=== PATIENT | male | born 1970 | race Caucasian/White ===

== ENCOUNTER → 2017-09-29 10:05 | Outpatient (CLI) | payer MEDICARE, MEDICAID, SELFPAY ==
--- NOTE | 2017-09-29 10:00 | NS.NUTBLAN_ITS ---
Darvin returns for follow up nutritional counseling for weight management in preparation for bariatric surgery. He demonstrates that he has followed through with the action plans he set out to do at our last session. He has discontinued drinking sugar sweetened beverages and he has been physically active on most days as much as he can, also taking into consideration the extreme heat. Acknowledged his excellent efforts and commitment to making weight management his way of life. We discussed building on the action plans towards his lifestyle changes and gave Darvin several ideas of things he could work on over the next month. Darvin verbalized that the next most important lifestyle change he can make will be to do all of his eating at the kitchen table, versus on the run or in bed. He will of course continue to drink only water and non SSB's as well as swim or do other activities that he can tolerate as much as possible. Darvin is 67 and is 429 lbs today. His BMI is 65.2 kg/m2. Will continue to monitor weight and PO intake monthly. Darvni will return next month for follow up Evaluate progress on action plans and adjust nutrition care plan as needed.
== END ==
PROVIDERS: PCP Physician Assistant Medical; Visit Provider Dietitian, Registered
DX: E66.01 Morbid (severe) obesity due to excess calories (principal); Z68.44 Body mass index [BMI] 60.0-69.9, adult; Z71.3 Dietary counseling and surveillance
CPT/HCPCS: 97803

== ENCOUNTER → 2017-10-09 19:36 | Outpatient (REF) | payer MEDICARE, MEDICAID, SELFPAY ==
[2017-10-12 11:43] LABS: Lyme Ab w Rflx to Lyme Confirm Negative
[2017-10-12 22:35] LABS: Anaplasma phagocytophilum Negative (Negative); B. miyamotoi PCR Negative (Negative); Babesia divergens/MO-1 Negative (Negative); Babesia duncani Negative (Negative); Babesia microti Negative (Negative); Ehrlichia chaffeensis Negative (Negative); Ehrlichia ewingii/canis Negative (Negative); Ehrlichia muris eauclairensis Negative (Negative)
== END ==
LOC: NCHCN 19:36
PROVIDERS: PCP Physician Assistant Medical; Visit Provider Physician Assistant Medical
DX: M79.1 Myalgia (principal)
CPT/HCPCS: 86618; 87798

== ENCOUNTER 2017-11-13 16:00 | Outpatient (CLI) | payer SELFPAY ==
--- NOTE | 2017-11-13 16:00 | NS.NUTBLAN_ITS ---
Darvin returns for follow up nutritional counseling for weight management in preparation for bariatric surgery. He continues to demonstrate that he is motivated to make lifestyle changes necessary for a life long commitment to weight management. He continues to eliminate sugar sweetened beverages and he continues to eat more of his meals at the kitchen table. We discussed continuing to include physical activity daily as the weather gets cooler as Darvin was swimming outside daily while it was warm. Darvin reports that he plans to walk. He is 67 and 429 lbs. His BMI is 65.2 kg/m2. Follow up per [facility]. Appointment start time: 1620h Appointment end time: 1635h
== END 2017-11-13 16:20 ==
PROVIDERS: PCP Physician Assistant Medical; Visit Provider Dietitian, Registered
DX: E66.8 Other obesity (principal); Z68.44 Body mass index [BMI] 60.0-69.9, adult; Z71.3 Dietary counseling and surveillance
CPT/HCPCS: 97803

== ENCOUNTER 2018-01-21 10:30 | Outpatient (CLI) | payer MEDICARE, MEDICAID, SELFPAY | END 2018-01-21 10:50 | PROVIDERS: PCP Physician Assistant Medical; Visit Provider Physical Therapy Assistant | DX: K21.9 Gastro-esophageal reflux disease without esophagitis (principal); I10 Essential (primary) hypertension; J44.9 Chronic obstructive pulmonary disease, unspecified; F17.290 Nicotine dependence, other tobacco product, uncomplicated | CPT/HCPCS: 99213 ==

== ENCOUNTER 2018-03-16 01:20 | Outpatient (CLI) | payer MEDICARE, MEDICAID, SELFPAY ==
--- NOTE | 2018-03-16 14:48 | DI.NM_ITS ---
2 day MPI. See dictation under day 2 (03/17/18).
== END 2018-03-16 01:40 ==
PROVIDERS: PCP Physician Assistant Medical; Visit Provider Physician Assistant Medical
DX: R07.89 Other chest pain (principal); R06.02 Shortness of breath; I42.9 Cardiomyopathy, unspecified; I10 Essential (primary) hypertension

== ENCOUNTER 2018-03-17 01:39 | Outpatient (CLI) | payer MEDICARE, MEDICAID, SELFPAY ==
--- NOTE | 2018-03-17 08:15 | MERGEMPI_ITS ---
*[facility]* *[facility]* [address] [place] [address] Myocardial Perfusion Imaging - SPECT Regadenoson Date of study: 03/17/2018 (Report amended ) *PATIENT PRESENTATION* Height: 177.8cm (70in) Blood Pressure: Weight: 196.4kg (432lb) BSA: 3.24m^2 Referring physician: Linwood Sanchez Ordering physician: Татьяна Koehler Impressions: Abnormal study after pharmacologic stress. Summary: 1. Myocardial perfusion imaging: There is a moderate sized, moderately intense, fixed defect involving the apical inferior, mid inferolateral, apical lateral, and apical wall(s). This suggests moderate myocardial infarction in the distribution of the right coronary artery. 2. The calculated left ventricular ejection fraction after stress: 23%. LV global systolic function is severely reduced. Diffuse left ventricular regional motion abnormalities. There is akinesis involving the apical wall(s) of the left ventricle. 3. Baseline ECG: Sinus bradycardia. Recommendations: Transthoracic echocardiography should be performed in order to evaluate LV function. Indication: R07.89. History: REASON FOR VISIT: LEFT CHEST PRESSURE. PT ARRIVES TODAY WITH COMPLAINTS OF PERSISTANT CHEST PRESSURE FOR 1 WEEK HE STATES IT RADIATES ACROSS HIS CHEST AND IT IS ASSOCIATED WITH SHORTNESS OF BREATH. PMH: COPD. Risk factors: FORMER SMOKER. QUIT 6 MONTHS. SMOKED 2.5 PACKS A DAY FOR 30 YEARS. Family history of coronary artery disease. Hypertension. Diabetes mellitus. Dyslipidemia. Cholesterol: 158mg/dl. HDL: 29mg/dl. LDL: 125mg/dl. Triglycerides: 112mg/dl. ALLERGIES: NO KNOWN ALLERGIES. MEDICATIONS: ALBUTEROL SULFATE 2 PUFFS PRN. BACLOFEN 10 MG DAILY. CELECOXIB 400 MG DAILY. CITALOPRAM 40 MG DAILY. CYCLOBENZAPRINE 10 MG EVERY 8 HOURS PRN. DILTIAZEM HCL 360 MG DAILY. ERGOCALCIFEROL 50,000 UNITS WEEKLY. ESOMEPRAZOLE MAGNESIUM 40 MG DAILY. FLUOXETINE 80 MG DAILY FUROSEMIDE 60 MG DAILY PRN. GABAPENTIN 900 MG DAILY. LURASIDONE 60 MG DAILY. METOFORMIN 500 MG DAILY. METHYLPHENIDATE HCL 10 MG TID. NAPROXEN SODIUM 220 MG PRN. VICODIN 5/325 MG ONE TAB TID. Imaging Technique: Protocol: Regadenoson. Acquisition: Gated SPECT; stress. The patient was imaged in the supine position. Attenuation correction used. Isotope administration: - Stress. Tc[99m]-sestamibi. Dose: 25.8mCi. Injection time: 11:05 AM. - Dose: 33.3mCi. Injection time: 10:15 AM. Baseline ECG: SINUS BRADYCARDIA. HR 54 BPM. Sinus bradycardia. Stress protocol: +--------+--+ + + !Stage !HR!BP (mmHg) !Comments ! +--------+--+ + + !Baseline!54!130/94 (106)! ! +--------+--+ + + !1 min !79!130/94 (106)!Inject Regadenoson.! +--------+--+ + + !3 min !71!138/92 (107)! ! +--------+--+ + + !6 min !66!132/94 (107)! ! +--------+--+ + + * Stress results: The rate-pressure product for the peak heart rate and blood pressure was 69876td Hg/min. Stress ECG: STRESS TEST ENDED IN 6 MINUTES & 32 MINUTES. NO SIGNIFICANT SIDE EFFECTS FROM LEXISCAN INJECTION. NORMAL HEART RATE AND BLOOD PRESSURE RESPONSE TO LEXISCAN INJECTION. PT REPORTED 6-7 OUT OF 10 CHEST TIGHTNESS UPON ARRIVAL, REPORTS THIS CHEST DISCOMFORT HAS BEEN PERSISTANTLY PRESENT FOR A WEEK. NO CHANGE IN QUALITY OR SEVERITY OF CHEST TIGHTNESS DURING TESTING. NO ECTOPY NO SIGNIFICANT ST SEGMENT CHANGES. Myocardial perfusion: Imaging information: gated. The image quality was good. Left ventricular size is normal. There is a moderate sized, moderately intense, fixed defect involving the apical inferior, mid inferolateral, apical lateral, and apical wall(s). This suggests moderate myocardial infarction in the distribution of the right coronary artery. Ventricular Function (Wall Motion): The calculated left ventricular ejection fraction after stress: 23%. LV global systolic function is severely reduced. Diffuse left ventricular regional motion abnormalities. There is akinesis involving the apical wall(s) of the left ventricle. Study data: Linwood Sanchez MD supervised and was readily available during the procedure. This study was interpreted by [facility]. Study status: Routine. Consent: The risks, benefits, and alternatives to the procedure were explained to the patient and informed consent was obtained. Procedure: Initial setup. A baseline ECG was recorded. Surface ECG leads and manual cuff blood pressure measurements were monitored. Heart sounds: Normal. Lung sounds: Normal. Regadenoson stress test. Stress testing was performed, with regadenoson by intravenous bolus, for a total dose of 0.4mgover 10.00sec, followed by a 5ml saline flush. The infusion was terminated due to per protocol. Study completion: All catheters inserted during the procedure were removed. The patient tolerated the procedure well and was discharged from the lab. Discharge: The patient left the laboratory in stable condition. Birthdate: Patient birthdate: 1970. Sex: Gender: male. Study date: Study date: 03/17/2018. Study time: 12:30 PM. Signature Documentation: - The imaging portion of this study was interpreted by [employer] Linwood Sanchez MD. - The Stress ECG portion of this study was interpreted by Linwood Sanchez MD. Electronically signed by Linwood Sanchez 03/24/2018 16:20
[2018-03-17] MEDS: Regadenoson 0.4 MG/5 ML SYR IVP (13:05)
== END 2018-03-17 01:59 ==
PROVIDERS: PCP Physician Assistant Medical; Visit Provider Physician Assistant Medical
DX: R07.89 Other chest pain (principal); R06.02 Shortness of breath; I42.9 Cardiomyopathy, unspecified; I10 Essential (primary) hypertension
CPT/HCPCS: 78452; 93016; 93018; 93017; J2785

== ENCOUNTER 2018-03-31 01:36 | Outpatient (CLI) | payer MEDICARE, MEDICAID, SELFPAY ==
--- NOTE | 2018-03-31 09:30 | MERGE_ITS ---
*[facility]* *[facility]* [address] [place] [id number] Date of study: 03/31/2018 Transthoracic Echocardiography M-mode, complete 2D, complete spectral Doppler, and color Doppler *STUDY CONCLUSIONS* Summary: 1. Procedure narrative: Image quality was poor. Intravenous contrast (Definity) was administered. 2. Left ventricle: The cavity size was mildly dilated. Wall thickness was normal. Systolic function was mildly reduced. The estimated ejection fraction was 45-50%. Akinesis of the apicalanterior, inferior, and apical myocardium. No evidence of thrombus. 3. Right ventricle: The cavity size was dilated. Systolic function was reduced. *PATIENT PRESENTATION* Height: 175.3cm ((69in) ) S/D Pressure: 136 / 96 Weight: 196kg ((431.1lb) ) BSA: 3.21m^2 Test start time: 09:30 AM. Test stop time: 11:00 AM. PERFORMING Unknown PERFORMING [facility] ORDERING Татьяна Koehler REFERRING Татьяна Koehler [employer] RT Ernst (R)(CT), [facility] *PROCEDURE DATA* Procedure information: This study was interpreted by [facility]. Pertinent images and digital data are archived for permanent storage and are available for subsequent review. No prior study was available for comparison. Study status: Routine. Transthoracic echocardiography. M-mode, complete 2D, complete spectral Doppler, and color Doppler. A Transthoracic Echocardiogram was performed. Scanning was performed from the parasternal, apical, subcostal, and suprasternal notch acoustic windows. Images were obtained using an [id number] cardiac ultrasound machine. Image quality was poor. Intravenous contrast (Definity) was administered. Definity amount administered was a total of 4ml. One vial was used. The saline was administered by amilcar . Study completion: The patient tolerated the procedure well. There were no complications. History: PMH: Abnormal cardiovascular stress test. Chest pressure. *CARDIAC ANATOMY* Left ventricle: The cavity size was mildly dilated. Wall thickness was normal. Systolic function was mildly reduced. The estimated ejection fraction was 45-50%. No evidence of thrombus. Regional wall motion abnormalities: Akinesis of the apicalanterior, inferior, and apical myocardium. The study is not technically sufficient to allow evaluation of LV diastolic function. Aortic valve: Poorly visualized. Doppler: Transvalvular velocity was within the normal range. There was no stenosis. There was no significant regurgitation. Aorta: Aortic root: The aortic root was normal in size. Ascending aorta: The ascending aorta was mildly dilated. Mitral valve: Poorly visualized. The valve appears to be grossly normal. Doppler: Transvalvular velocity was within the normal range. There was no evidence for stenosis. There was no significant regurgitation. Valve area by pressure half-time: 4cm^2. Indexed valve area by pressure half-time: 1.2cm^2/m^2. Left atrium: The atrium was normal in size. Right ventricle: Poorly visualized. The cavity size was dilated. Systolic function was reduced. Pulmonic valve: Doppler: Transvalvular velocity was within the normal range. There was no evidence for stenosis. There was no significant regurgitation. Tricuspid valve: Poorly visualized. The valve appears to be grossly normal. Doppler: Transvalvular velocity was within the normal range. There was no evidence for stenosis. There was no significant regurgitation. Pulmonary artery: Systolic pressure could not be accurately estimated. Right atrium: The atrium was normal in size. Pericardium: There was no pericardial effusion. Systemic veins: Inferior vena cava: Not visualized. The vessel was normal in size. Baseline ECG: Sinus bradycardia. Measurements Left ventricle Value Reference LV ID, ED, PLAX (H) 6.2 cm 3.5 - 6.0 LV ID, ES, PLAX (H) 5.4 cm 2.1 - 4.0 LV PW thickness, ED, PLAX 0.9 cm LV end-diastolic volume, 1-p A2C 156 ml LV ejection fraction, 1-p A2C 38 % LV e', lateral 0.088 m/sec LV E/e', lateral 7 LV e', medial 0.085 m/sec LV E/e', medial 7 LV e', average 0.086 m/sec LV E/e', average 7 Ventricular septum Value Reference IVS thickness, ED, PLAX 1.7 cm Aorta Value Reference Ascending aorta ID, A-P, S 3.7 cm Left atrium Value Reference LA ID, A-P, ES 4.5 cm LA ID/bsa, A-P 1.4 cm/m^2 <=2.2 LA area, ES, A4C 19.7 cm^2 8.8 - 23.4 LA area, ES, A2C 16 cm^2 LA volume, ES, 2-p 49 ml LA volume/bsa, ES, 2-p 15 ml/m^2 Mitral valve Value Reference Mitral E-wave peak velocity 0.63 m/sec Mitral A-wave peak velocity 0.45 m/sec Mitral deceleration time 190 ms 150 - 230 Mitral pressure half-time 55 ms Mitral E/A ratio, peak 1.41 Mitral valve area, PHT, DP 4 cm^2 Legend: (L) and (H) zuri values outside specified reference range. I have personally reviewed the images and have reviewed and edited the reported findings. Electronically signed by Linwood Sanchez 03/31/2018 12:14
== END 2018-03-31 01:56 ==
PROVIDERS: PCP Physician Assistant Medical; Visit Provider Physician Assistant Medical
DX: R07.89 Other chest pain (principal); R94.30 Abnormal result of cardiovascular function study, unspecified; I50.810 Right heart failure, unspecified; I42.9 Cardiomyopathy, unspecified; I10 Essential (primary) hypertension
CPT/HCPCS: 93306; C8929

== ENCOUNTER 2018-04-05 21:32 | Outpatient (REF) | payer MEDICARE, MEDICAID, SELFPAY ==
[2018-04-05 22:10] LABS: Anion Gap 7.3 mmol/L (3-11); BUN 15 mg/dL (7-18); CO2 32.7 mmol/L (21.0-32.0); CREATININE 0.87 mg/dL (0.70-1.30); Calcium 9.2 mg/dL (8.5-10.1); Chloride 101 mmol/L (98-107); Glucose 44 mg/dL (70-100); NT-proBNP 30 pg/mL; Potassium 4.2 mmol/L (3.5-5.1); Sodium 141 mmol/L (136-145)
== END 2018-04-05 21:52 ==
LOC: NCHCN 21:32
PROVIDERS: PCP Physician Assistant Medical; Visit Provider Physician Assistant Medical
DX: I42.9 Cardiomyopathy, unspecified (principal); R60.0 Localized edema
CPT/HCPCS: 80048; 83880

== ENCOUNTER 2018-04-06 14:46 | Outpatient (CLI) | payer MEDICARE, MEDICAID, SELFPAY | END 2018-04-06 15:06 | PROVIDERS: PCP Physician Assistant Medical; Visit Provider Physician Assistant Medical | DX: R32 Unspecified urinary incontinence (principal) | CPT/HCPCS: 87086 ==

== ENCOUNTER 2018-08-23 21:18 | Outpatient (REF) | payer MEDICARE, MEDICAID, SELFPAY ==
[2018-08-23 22:10] LABS: ALT 91 U/L (12-78); AST 50 U/L (15-37); Albumin 3.7 g/dL (3.4-5.0); Alkaline Phosphatase 106 U/L (46-116); Anion Gap 13.2 mmol/L (3-11); BUN 14 mg/dL (7-18); Bilirubin, Total 0.7 mg/dL (0.2-1.0); CO2 27.8 mmol/L (21.0-32.0); CREATININE 0.92 mg/dL (0.70-1.30); Calcium 8.8 mg/dL (8.5-10.1); Calculated LDL 85 mg/dL; Chloride 99 mmol/L (98-107); Cholesterol 133 mg/dL (50-200); Glucose 81 mg/dL (70-100); HDL Cholesterol 33 mg/dL (40-60); Potassium 3.5 mmol/L (3.5-5.1); Sodium 140 mmol/L (136-145); Total Protein 7.4 g/dL (6.4-8.2); Triglyceride 77 mg/dL (30-150)
== END 2018-08-23 21:38 ==
LOC: NCHCN 21:18
PROVIDERS: PCP Physician Assistant Medical; Visit Provider Physician Assistant Medical
DX: I10 Essential (primary) hypertension (principal); R94.39 Abnormal result of other cardiovascular function study
CPT/HCPCS: 80053; 80061; 83721

== ENCOUNTER 2019-03-30 14:17 | Outpatient (REF) | payer MEDICARE, MEDICAID, SELFPAY ==
[2019-03-30 21:05] LABS: ALT 73 U/L (16-63); AST 47 U/L (15-37); Albumin 3.7 g/dL (3.4-5.0); Alkaline Phosphatase 114 U/L (46-116); Anion Gap 5.9 mmol/L (3-11); BUN 11 mg/dL (7-18); Bilirubin, Total 0.5 mg/dL (0.2-1.0); CO2 31.1 mmol/L (21.0-32.0); CREATININE 0.89 mg/dL (0.70-1.30); Calcium 8.8 mg/dL (8.5-10.1); Chloride 101 mmol/L (98-107); Glucose 103 mg/dL (74-106); Potassium 3.9 mmol/L (3.5-5.1); Sodium 138 mmol/L (136-145); Total Protein 7.1 g/dL (6.4-8.2)
== END 2019-03-30 14:37 ==
LOC: NCHCN 14:17
PROVIDERS: PCP Physician Assistant Medical; Visit Provider Physician Assistant Medical
DX: R35.1 Nocturia (principal); I10 Essential (primary) hypertension
CPT/HCPCS: 80053

== ENCOUNTER 2019-05-06 22:47 | Outpatient (REF) | payer MEDICARE, MEDICAID, SELFPAY ==
[2019-05-06 18:58] LABS: Abs Immature Grans 0.04 k/cumm (0.0-0.09); Absolute Basophil Count 0.02 k/cumm (0.0-0.2); Absolute Eosinophil Count 0.19 k/cumm (0.0-0.7); Absolute Monocyte Count 0.63 k/cumm (0.11-0.7); Absolute Neutrophil Count 6.89 k/cumm (1.2-6.7); Basophils % 0.2; HCT 45.6 % (40.0-50.0); HGB 14.9 g/dL (13.5-17.5); Immature Grans % 0.4 %; Mean Corp. HGB Concentration 32.7 g/dL (32.0-36.0); Mean Corpuscular Hemoglobin 27.4 pg (27.0-33.0); Mean Platelet Volume 10.8 fL (8.0-11.0); Monocytes % 6.7; Neutrophils % 72.7; Platelet Count 393 x1000/uL (130-400); RBC 5.43 m/cumm (4.50-6.00); RBC Distribution Width 15.5 % (11.8-14.1); White Blood Cell Count 9.47 k/cumm (4.4-10.8)
[2019-05-06 19:25] LABS: ALT 63 U/L (16-63); AST 50 U/L (15-37); Albumin 3.8 g/dL (3.4-5.0); Alkaline Phosphatase 98 U/L (46-116); Anion Gap 8.2 mmol/L (3-11); BUN 10 mg/dL (7-18); Bilirubin, Total 0.5 mg/dL (0.2-1.0); CO2 27.8 mmol/L (21.0-32.0); CREATININE 0.96 mg/dL (0.70-1.30); Calcium 8.5 mg/dL (8.5-10.1); Chloride 104 mmol/L (98-107); Glucose 90 mg/dL (74-106); Potassium 4.2 mmol/L (3.5-5.1); Sodium 140 mmol/L (136-145); Total Protein 7.2 g/dL (6.4-8.2)
[2019-05-09 10:14] LABS: PSA, Diagnostic 0.5 ng/mL (0.0-2.5)
== END 2019-05-06 23:07 ==
LOC: NCHCN 22:47
PROVIDERS: PCP Physician Assistant Medical; Visit Provider Physician Assistant Medical
DX: R30.0 Dysuria (principal); R35.1 Nocturia; R10.9 Unspecified abdominal pain
CPT/HCPCS: 80053; 84153; 85025; 87086

== ENCOUNTER 2019-09-01 14:20 | Outpatient (REF) | payer MEDICARE, MEDICAID, SELFPAY ==
[2019-09-07 03:22] LABS: SARS-CoV-2 RNA Undetected (Undetected); SARS-CoV-2 Specimen Source Nasopharynx
== END 2019-09-01 14:40 ==
LOC: NCHCN 14:20
PROVIDERS: PCP Physician Assistant Medical; Visit Provider Nurse Practitioner Family
DX: J02.9 Acute pharyngitis, unspecified (principal)
CPT/HCPCS: U0003

== ENCOUNTER 2019-09-09 19:17 | Outpatient (REF) | payer MEDICARE, MEDICAID, SELFPAY ==
[2019-09-12 14:15] LABS: TSH (W/Ref FT4) 2.09 uIU/mL (0.36-3.74)
[2019-09-12 14:50] LABS: Hemoglobin A1C 13.9 % (3.8-5.6)
[2019-09-13 09:12] LABS: Prolactin 22.8 ng/mL (2.1-17.7)
== END 2019-09-09 19:37 ==
LOC: NCHCN 19:17
PROVIDERS: PCP Physician Assistant Medical; Visit Provider Family Medicine
DX: R22.0 Localized swelling, mass and lump, head (principal); R53.83 Other fatigue; R73.03 Prediabetes; E66.01 Morbid (severe) obesity due to excess calories; E22.1 Hyperprolactinemia
CPT/HCPCS: 80053; 85027; 83036; 84146; 84443

== ENCOUNTER 2019-09-13 12:44 | Outpatient (REF) | payer MEDICARE, MEDICAID, SELFPAY ==
[2019-09-13 19:24] LABS: HCT 46.6 % (40.0-50.0); HGB 15.5 g/dL (13.5-17.5); Mean Corp. HGB Concentration 33.3 g/dL (32.0-36.0); Mean Corpuscular Hemoglobin 27.7 pg (27.0-33.0); Mean Corpuscular Volume 83.2 fL (80-95); Mean Platelet Volume 11.8 fL (8.0-11.0); Platelet Count 437 x1000/uL (130-400); RBC Distribution Width 14.4 % (11.8-14.1); White Blood Cell Count 6.82 k/cumm (4.4-10.8)
[2019-09-13 19:35] LABS: ALT 87 U/L (16-63); AST 60 U/L (15-37); Albumin 3.7 g/dL (3.4-5.0); Alkaline Phosphatase 139 U/L (46-116); Anion Gap 9.1 mmol/L (3-11); BUN 12 mg/dL (7-18); CO2 27.9 mmol/L (21.0-32.0); Chloride 93 mmol/L (98-107); Glucose 461 mg/dL (74-106); Potassium 3.8 mmol/L (3.5-5.1); Sodium 130 mmol/L (136-145); Total Protein 7.4 g/dL (6.4-8.2)
== END 2019-09-13 13:04 ==
LOC: NCHCN 12:44
PROVIDERS: PCP Physician Assistant Medical; Visit Provider Physician Assistant Medical
DX: E11.9 Type 2 diabetes mellitus without complications (principal)
CPT/HCPCS: 80053; 85027; 87077; 87070; 87205

== ENCOUNTER 2019-12-27 15:17 | Inpatient (IN) | payer MEDICARE, MEDICAID, SELFPAY ==
[2019-12-27] VITALS (37 sets, daily range): BP systolic 138–165; BP diastolic 84–118; PULSE 62–83; RESP 12–28; TEMP 36.2–36.7; O2SAT 86–100
--- NOTE | 2019-12-27 15:15 | RT.EKG_ITS ---
APPROVED REPORT Exam: Resting ECG Patient Location: E HR:71 bpm ECG Measurements Heart Rate 71 AXIS WI 178 P 22 QRSd 96 QRS 185 QT 413 T 15 QTc 447 Conclusion Sinus rhythm...normal P axis, V-rate 60- 99 Anteroseptal infarct, age indeterminate...Q >35mS, T neg, V1-V2 Nonspecific st changes
--- NOTE | 2019-12-27 15:45 | DI.RAD_ITS ---
EXAM: XR PORTABLE CHEST AP CLINICAL HISTORY: SOB TECHNIQUE: 2D digital imaging was performed. COMPARISON: No exams were available for comparison FINDINGS: MEDIASTINUM: Normal. HEART: Normal. PULMONARY VASCULATURE: Normal. LUNGS: Clear. PLEURAL SPACE: No pleural effusion or pneumothorax. BONE:Within normal limits for the patient's age. OTHER FINDINGS:Normal. IMPRESSION: No acute pulmonary findings. DATA REPOSITORY: RADIATION DOSE DELIVERED:
--- NOTE | 2019-12-27 15:53 | W.ED.GENAD ---
Discharge Plan Disposition Patient Disposition: [facility] INPATIENT Condition: Improving Discharge Details Clinical Impression: COPD (chronic obstructive pulmonary disease), Morbid obesity, Sleep apnea, Acute on chronic respiratory acidosis Primary Care Provider: Татьяна Koehler ED Provider: Gaetano Landeros Home Meds and New Rx's Prescriptions: No Action celecoxib [Celebrex] 400 mg capsule 400 mg PO DAILY RF: 0 hydrocodone-acetaminophen 10-325 mg tablet 1 tab PO Q6H PRNRF: 0 diazepam 10 mg tablet 10 mg PO TID PRNRF: 0 Dexilant 60 mg capsule,biphase delayed releas 60 mg PO DAILY RF: 0 escitalopram oxalate [Lexapro] 20 mg tablet 20 mg PO DAILY RF: 0 cabergoline 0.5 mg tablet See Rx Instructions PO ONCE RF: 0 testosterone cypionate 100 mg/mL oil 40 mg IM QWEEK RF: 0 chlorthalidone 50 mg tablet 50 mg PO DAILY RF: 0 Incruse Ellipta 62.5 mcg/actuation blister with device 1 inh IH DAILY RF: 0 selenium sulfide 2.5 % lotion 2.5 % TP RF: 0 atorvastatin [Lipitor] 20 mg tablet 20 mg PO DAILY RF: 0 furosemide [Lasix] 20 mg tablet 40 mg PO DAILY PRNRF: 0 aspirin 81 mg Tablet,Delayed Release (Dr/Ec) 81 mg PO DAILY RF: 0 methylphenidate HCl 20 mg tablet 20 mg PO TID RF: 0 isosorbide mononitrate 30 mg tablet extended release 24 hr 30 mg PO DAILY RF: 0 amlodipine 10 mg tablet 10 mg PO DAILY RF: 0 ketoconazole 2 % cream See Rx Instructions .ROUTE .COMPLEX RF: 0 loratadine [Claritin] 10 mg Tablet 10 mg PO DAILY RF: 0 insulin aspart U-100 [Novolog Flexpen U-100 Insulin] 100 unit/mL (3 mL) insulin pen SUBCUT RF: 0 Biotene Mouthwash 1 ea MUCOUS MEMBRANE TID PRNRF: 0 levalbuterol tartrate [Xopenex HFA] 45 mcg/actuation HFA aerosol inhaler 2 puff INHALATION Q6H PRN PRNRF: 0 Basaglar KwikPen U-100 Insulin 100 unit/mL (3 mL) insulin pen See Rx Instructions .ROUTE .COMPLEX RF: 0 Farxiga 5 mg tablet 5 mg PO DAILY RF: 0 Vraylar 4.5 mg capsule 4.5 mg PO HS RF: 0 Medical Decision Making 49-year-old male presents from clinic where he was seen for routine annual physical. After ambulating into the office he was noted to have room air saturation of 79% and was slightly confused. He states to me he has had shortness of breath for months. He has stopped using his CPAP machine at night. He has continued to take his routine medications including Valium and hydrocodone. Different diagnosis is broad but does include respiratory infection, pulmonary edema, hypercarbia/retention. Patient IV access established, placed on a hall monitor, ABG, screening labs, EKG and chest x-ray obtained. ABG reveals a compensated respiratory acidosis with a pH of 7.4, PCO2 of 60, PO2 of 50, bicarb 38. Chemistries notable for hypokalemia with potassium of 2.7 (supplemented in the ED). Minor elevations of the LFTs at AST 55 and ALT 74, normal total bili. BNP 36 and troponin negative. Chest x-ray without acute disease. Patient placed on BiPAP, 12 over 5/35%. He tolerates this well. Given the patient's Pickwickian body habitus and COPD this is likely a an acute exacerbation of chronic respiratory acidosis, with concomitant hypoventilation syndrome possibly worsened by his sedative medications. He will require admission. Case discussed with Dr. Walker. Lab Data Lab results reviewed: Yes I reviewed the patient's lab results. Labs: Laboratory Results - last 24 hr 12/27/19 12/27/19 12/27/19 15:37 15:45 15:45 WBC 9.60 RBC 6.08 H Hgb 16.7 Hct 53.5 H MCV 88.0 MCH 27.5 MCHC 31.2 L RDW 15.5 H Plt Count 381 MPV 10.1 Immature Gran % 0.7 Neutrophils % 70.7 Lymphocytes % 19.7 Monocytes % 6.4 Eosinophils % 2.0 Basophils % 0.5 Nucleated RBC % 0 Absolute Neutrophils 6.79 H Absolute Lymphocytes 1.89 Absolute Monocytes 0.61 Absolute Eosinophils 0.19 Absolute Basophils 0.05 D-Dimer ABG Sample Site Left radial ABG pH 7.40 ABG pCO2 60 H ABG pO2 50 L ABG HCO3 38 H ABG Total CO2 33 H ABG O2 Saturation 86 L ABG Base Excess 13 H FiO2 21% Sodium 140 Potassium 2.7 L* Chloride 100 Carbon Dioxide 40.1 H Anion Gap -0.1 L BUN 13 Creatinine 0.97 Estimated GFR/1.73 m2 >= 60.00 Glucose 95 Calcium 9.2 Magnesium 1.9 Total Bilirubin 0.8 AST 55 H ALT 74 H Alkaline Phosphatase 123 H Troponin I < 0.05 NT-Pro-B Natriuret Pep 36 Total Protein 8.7 H Albumin 3.8 12/27/19 15:45 WBC RBC Hgb Hct MCV MCH MCHC RDW Plt Count MPV Immature Gran % Neutrophils % Lymphocytes % Monocytes % Eosinophils % Basophils % Nucleated RBC % Absolute Neutrophils Absolute Lymphocytes Absolute Monocytes Absolute Eosinophils Absolute Basophils D-Dimer 264 ABG Sample Site ABG pH ABG pCO2 ABG pO2 ABG HCO3 ABG Total CO2 ABG O2 Saturation ABG Base Excess FiO2 Sodium Potassium Chloride Carbon Dioxide Anion Gap BUN Creatinine Estimated GFR/1.73 m2 Glucose Calcium Magnesium Total Bilirubin AST ALT Alkaline Phosphatase Troponin I NT-Pro-B Natriuret Pep Total Protein Albumin HPI General Mode of arrival: ambulatory. Date/Time Provider Initiated Documentation: 12/27/19 15:18. Limitations to Documentation: no limitations. Information obtained by: patient and old records reviewed. History of Present Illness 49 year old M presents to the emergency department with the chief complaint of Shortness of breath and intermittent chest pain for months, described as mild, and is localized to the chest. Patient reports no radiation. Patient started experiencing this month(s) and it has been intermittent. Rest improves symptom(s), Movement worsens symptoms . Patient notes chest pain, shortness of breath and weakness; denies syncope. Patient did receive the following treatments prior to arrival, other (Oxygen) Related Data Home Medications Medication Instructions Recorded Confirmed celecoxib 400 mg capsule 400 mg PO DAILY 01/11/18 12/27/19 Lasix 20 mg tablet 40 mg PO DAILY PRN tab-cap NS 08/18/18 12/27/19 atorvastatin 20 mg tablet 20 mg PO DAILY 08/18/18 12/27/19 cabergoline 0.5 mg tablet See Rx Instructions PO ONCE 08/18/18 12/27/19 chlorthalidone 50 mg tablet 50 mg PO DAILY 08/18/18 12/27/19 dexlansoprazole 60 mg 60 mg PO DAILY 08/18/18 12/27/19 capsule,biphase delayed release diazepam 10 mg tablet 10 mg PO TID PRN tab 08/18/18 12/27/19 escitalopram oxalate 20 mg tablet 20 mg PO DAILY 08/18/18 12/27/19 hydrocodone 10 mg-acetaminophen 1 tab PO Q6H PRN 08/18/18 12/27/19 325 mg tablet selenium sulfide 2.5 % lotion 2.5 % TP ml 08/18/18 08/18/18 testosterone cypionate 100 mg/mL 40 mg IM QWEEK ml 08/18/18 12/27/19 intramuscular oil umeclidinium 62.5 mcg/actuation 1 inh IH DAILY 08/18/18 12/27/19 blister powder for inhalation aspirin 81 mg PO DAILY 10/08/18 12/27/19 amlodipine 10 mg PO DAILY 12/27/19 12/27/19 cariprazine [Vraylar] 4.5 mg PO HS 12/27/19 12/27/19 dapagliflozin [Farxiga] 5 mg PO DAILY 12/27/19 12/27/19 gluc [id number] 1 ea MUCOUS MEMBRANE TID PRN 12/27/19 12/27/19 [Biotene] insulin aspart U-100 [Novolog unit SUBCUT 12/27/19 Flexpen U-100 Insulin] insulin glargine [Basaglar KwikPen See Rx Instructions .ROUTE .COMPLEX 12/27/19 12/27/19 U-100 Insulin] isosorbide mononitrate 30 mg PO DAILY 12/27/19 12/27/19 ketoconazole See Rx Instructions .ROUTE .COMPLEX 12/27/19 12/27/19 levalbuterol tartrate [Xopenex HFA] 2 puff INHALATION Q6H PRN PRN 12/27/19 12/27/19 loratadine [Claritin] 10 mg PO DAILY 12/27/19 12/27/19 methylphenidate HCl 20 mg PO TID 12/27/19 12/27/19 Allergies Allergy/AdvReac Type Severity Reaction Status Date / Time ibuprofen AdvReac Intermediate GI Bleeding Unverified 12/27/19 15:33 General Stated Complaint: SOB KIMBERLEE: 2 Review of Systems Narrative: States he has had months of not wearing his CPAP at night. Intermittent chest pain for months, intermittent shortness of breath is worse for exertion over months time. Notes recent change to his testosterone, but no other new medication changes. Continues to take Valium and hydrocodone. States he has felt unsteady on his feet recently. No change to weight. [facility] History Abnormal cardiovascular stress test Back muscle spasm Blind left eye Callus of foot Chronic low back pain Coccyx disorder COPD (chronic obstructive pulmonary disease) Cough Depression Gastroesophageal reflux disease Hyperprolactinemia Hypertension Hypogonadism Impaired fasting glucose Insomnia Leg edema Marital problems Morbid obesity Narcolepsy Neck pain Nocturia Organic impotence Skin lesion of foot Sleep apnea Smoker Social History Smoking/Tobacco Use Status: Current every day Tobacco Type: e-cigarettes Smoking risk assessment performed?: Yes Alcohol Intake: current Alcohol Intake frequency: holidays/special occasions only Alcohol type: hard liquor Drug use: Never Substance use type: marijuana Exam Narrative Exam Narrative: GEN: awake, alert, oriented 3. Pleasant, obese, interactive. HEAD: Normocephalic, atraumatic ENT: Mucous membranes moist, oropharynx unremarkable, External ear exam unremarkable EYES: PERRL, EOMI NECK: Full ROM, no BANDAR, no menigismus CHEST/RESP: Distant, nontender, diminished bilateral, no wheeze/rhonchi/rales CARDIOVASCULAR: RRR, no murmur, rub clare. 2+ Rad pulse bilateral ABDOMEN: Soft, nontender, no mass. +Bowel sounds EXT: Full ROM, positive pretibial edema, no rash Neuro: Grossly normal neurologic exam, conversant, interactive. Psych: Speech fluent, thoughts congruent, affect normal Course Vital Signs Vital signs: Vital Signs Pulse Oximetry 94 12/27/19 15:23 Temperature 36.2 C L 12/27/19 15:25 Temperature Source Skin 12/27/19 15:25 Pulse 69 12/27/19 15:47 Pulse 72 12/27/19 15:47 Respiratory Rate 25 H 12/27/19 15:47 Respiratory Effort Non-Labored 12/27/19 15:33 Blood Pressure 140/86 12/27/19 15:47 Blood Pressure Mean 100 12/27/19 15:47 Blood Pressure Position Sitting 12/27/19 15:25 Pulse Oximetry 93 12/27/19 15:47 Oxygen Delivery Method Nasal Cannula 12/27/19 15:25 Pain Level 3 12/27/19 15:25
[2019-12-27 15:59] LABS: Abs Immature Grans 0.07 10^3/uL (0.0-0.06); Absolute Basophil Count 0.05 10^3/uL (0.0-0.2); Absolute Eosinophil Count 0.19 10^3/uL (0.0-0.7); Absolute Lymphocyte Count 1.89 10^3/uL (1.2-3.4); Absolute Monocyte Count 0.61 10^3/uL (0.1-0.8); Absolute Neutrophil Count 6.79 10^3/uL (1.2-6.7); Basophils % 0.5; HCT 53.5 % (40.0-50.0); HGB 16.7 g/dL (13.5-17.5); Immature Grans % 0.7; Lymphocytes % 19.7; MCH 27.5 pg (27.0-33.0); MCHC 31.2 % (32.0-36.0); MPV 10.1 fL (8.0-11.0); Monocytes % 6.4; Neutrophils % 70.7; Nucleated RBC 0 %; Platelet Count 381 10^3/uL (130-400); RBC 6.08 10^6/uL (4.36-5.78); RDW 15.5 % (11.8-14.1); RDW-SD 49.1 fL
[2019-12-27 16:05] LABS: BE 13 mmol/L (-2-3); HCO3 38 mmol/L (22-26); pCO2 60 mmHg (35-45); pO2 50 mmHg (80-105); sO2 86 % (95-98); tCO2 33 mmol/L (23-27)
[2019-12-27 16:07] LABS: FIO2 21% %; Site Left Radial
[2019-12-27 16:18] LABS: ALT 74 U/L (16-63); AST 55 U/L (15-37); Albumin 3.8 g/dL (3.4-5.0); Alkaline Phosphatase 123 U/L (46-116); Anion Gap -0.1 mmol/L (3-11); BUN 13 mg/dL (7-18); Bilirubin, Total 0.8 mg/dL (0.2-1.0); CO2 40.1 mmol/L (21.0-32.0); CREATININE 0.97 mg/dL (0.70-1.30); Calcium 9.2 mg/dL (8.5-10.1); Chloride 100 mmol/L (98-107); Glucose 95 mg/dL (74-106); Magnesium 1.9 mg/dL (1.8-2.4); NT-proBNP 36 pg/mL (<300); Sodium 140 mmol/L (136-145); Total Protein 8.7 g/dL (6.4-8.2)
[2019-12-27 16:24] LABS: Potassium 2.7 mmol/L (3.5-5.1); Troponin I < 0.05 ng/mL (<0.06)
--- NOTE | 2019-12-27 16:35 | DI.VRAD_ITS ---
PROCEDURE INFORMATION: Exam: XR Chest, 1 View Exam date and time: 12/27/2019 3:48 PM Age: 49 years old Clinical indication: Other: SOB TECHNIQUE: Imaging protocol: XR of the chest Views: 1 view. COMPARISON: No relevant prior studies available. FINDINGS: Lungs: The lungs are normally expanded and clear. Pleural space: Normal. Heart/Mediastinum: Lordotic patient orientation. This exaggerates the cardiomediastinal dimensions. The heart may be slightly enlarged though better assessed on upright PA view if necessary. Vasculature: Normal pulmonary vessel caliber. Normal aorta. Bones/joints: The bones are intact. IMPRESSION: No acute disease or suspicious finding. Dictated and Authenticated by: George Corbett MD. Ordering:BRIGIDA Salter MD
[2019-12-27] MEDS: POTASSIUM CHLORIDE 20 MEQ/100 ML BAG 50 MEQ IVPB (16:49)
[2019-12-27 17:17] LABS: D-Dimer 264 ng/mlFEU (<500)
--- NOTE | 2019-12-27 19:08 | NUR.NOTE ---
pt admitted to room 216 from ER. VSS. Pt is on Bipap machine. Pt oriented to room and plan of care. Nursing Note:
[2019-12-27 20:18] LABS: Troponin I < 0.05 ng/mL (<0.06)
--- NOTE | 2019-12-27 20:38 | HPE_ITS ---
Date of service: 12/27/19 Time of Service: 20:38 Assessment and Plan Assessment and plan (1) Acute on chronic respiratory acidosis: Status: Acute Assessment and plan: Consider repeating an ABG in the AM BiPAP while asleep/napping. (2) Hypertension: Status: Chronic Assessment and plan: Cont amlodipine, diuretics Monitor In the 150-160's initially. After BiPAP implemented, SBP in the 130's Qualifiers: Hypertension type: essential hypertension Qualified Code(s): I10 - Essential (primary) hypertension (3) Depression: Status: Chronic Assessment and plan: Cont Lexapro Qualifiers: Depression Type: unspecified Qualified Code(s): F32.9 - Major dep ressive disorder, single episode, unspecified (4) Sleep apnea: Status: Chronic Assessment and plan: BiPAP while asleep. Considerable weight loss would be desirable. Qualifiers: Sleep apnea type: unspecified type Qualified Code(s): G47.30 - Sleep apnea, unspecified (5) Smoker: Status: Chronic Assessment and plan: Nicotine replacement prn. Encourage cessation (6) COPD (chronic obstructive pulmonary disease): Status: Chronic Assessment and plan: Cont home Umeclidinium bromide inhaler. PRN albuterol inhaler No acute exacerbation by clinical exam or his estimation. (7) Morbid obesity: Status: Chronic Assessment and plan: Bariatric surgery, is covered by his insurance and he desires, would be an appropriate avenue to explore. (8) Narcolepsy: Status: Chronic Assessment and plan: Cont methylphenidate 20mg TID (9) Obesity hypoventilation syndrome: Status: Acute Assessment and plan: BiPAP while asleep Wt loss would be indicated. (10) Hypokalemia: Status: Acute Assessment and plan: He received IV K+ in the ED. Give oral now and check level in AM. History of Present Illness History of Present Illness Chief Complaint: Shortness of breath Narrative: This is a 49 yo morbidly obese male with a PMH of COPD, DM2, hyperprolactinemia, HTN, hypogonadism, Narcolepsy, JOSE DE JESUS, tobacco abuse disorder. He presented to the ED from his PCP office where he was scheduled for his annual physical exam. He was noted to have a RA O2 saturation of 79%. He endorsed feeling short of air and intermittent chest pain for months. Pain described as mild, localized in the chest diffusely w/o radiation. No diaphoresis, palpitations noted. CXR was negative for acute findings. His ABG showed a pH of 7.4, pCO2 of 60, pO2 of 50. WBC count normal. Hgb 16.7. Na 140, K+ 2.7, creatinine 0.97, Mg 1.9. Bili 0.8. AST 55. ALT 74. Troponin neg, NT-Pro-BNP 36. D-dimer normal. He was placed on BiPAP with an improvement in his ease of breathing. There was also some concern with mild confusion at his PCPs office. He stated he had stopped using his home BiPAP. He denies cough/sputum, F/C. Review of Systems All systems reviewed & are unremarkable except as noted in HPI and below PFSH Medical History Abnormal cardiovascular stress test Back muscle spasm Blind left eye Callus of foot Chronic low back pain Coccyx disorder COPD (chronic obstructive pulmonary disease) Cough Depression Gastroesophageal reflux disease Hyperprolactinemia Hypertension Hypogonadism Impaired fasting glucose Insomnia Leg edema Marital problems Morbid obesity Narcolepsy Neck pain Nocturia Organic impotence Skin lesion of foot Sleep apnea Smoker Social History Smoking/Tobacco Use Status: Current every day Tobacco Type: e-cigarettes Smoking risk assessment performed?: Yes Alcohol Intake: current Alcohol Intake frequency: holidays/special occasions only Alcohol type: hard liquor Drug use: Never Substance use type: marijuana Meds Home Medications and Allergies Home Medications Medication Instructions Recorded Confirmed Type celecoxib 400 mg capsule 400 mg PO DAILY 01/11/18 12/27/19 History Lasix 20 mg tablet 40 mg PO DAILY PRN tab-cap NS 08/18/18 12/27/19 History atorvastatin 20 mg tablet 20 mg PO DAILY 08/18/18 12/27/19 History cabergoline 0.5 mg tablet See Rx Instructions PO ONCE 08/18/18 12/27/19 History chlorthalidone 50 mg tablet 50 mg PO DAILY 08/18/18 12/27/19 History dexlansoprazole 60 mg 60 mg PO DAILY 08/18/18 12/27/19 History capsule,biphase delayed release diazepam 10 mg tablet 10 mg PO TID PRN tab 08/18/18 12/27/19 History escitalopram oxalate 20 mg tablet 20 mg PO DAILY 08/18/18 12/27/19 History hydrocodone 10 mg-acetaminophen 1 tab PO Q6H PRN 08/18/18 12/27/19 History 325 mg tablet selenium sulfide 2.5 % lotion 2.5 % TP ml 08/18/18 08/18/18 History testosterone cypionate 100 mg/mL 40 mg IM QWEEK ml 08/18/18 12/27/19 History intramuscular oil umeclidinium 62.5 mcg/actuation 1 inh IH DAILY 08/18/18 12/27/19 History blister powder for inhalation aspirin 81 mg PO DAILY 10/08/18 12/27/19 History amlodipine 10 mg PO DAILY 12/27/19 12/27/19 History cariprazine [Vraylar] 4.5 mg PO HS 12/27/19 12/27/19 History dapagliflozin [Farxiga] 5 mg PO DAILY 12/27/19 12/27/19 History gluc qgum-fjhiicfszphq-ornebsq 1 ea MUCOUS MEMBRANE TID PRN 12/27/19 12/27/19 History [Biotene] insulin aspart U-100 [Novolog unit SUBCUT 12/27/19 History Flexpen U-100 Insulin] insulin glargine [Basaglar KwikPen See Rx Instructions .ROUTE .COMPLEX 12/27/19 12/27/19 History U-100 Insulin] isosorbide mononitrate 30 mg PO DAILY 12/27/19 12/27/19 History ketoconazole See Rx Instructions .ROUTE .COMPLEX 12/27/19 12/27/19 History levalbuterol tartrate [Xopenex HFA] 2 puff INHALATION Q6H PRN PRN 12/27/19 12/27/19 History loratadine [Claritin] 10 mg PO DAILY 12/27/19 12/27/19 History methylphenidate HCl 20 mg PO TID 12/27/19 12/27/19 History Allergies Allergy/AdvReac Type Severity Reaction Status Date / Time ibuprofen AdvReac Intermediate GI Bleeding Unverified 12/27/19 15:33 Exam Const General: cooperative, no acute distress and other (Ambulated from the bathroom to his bed. Mild increased WOB) Nutritional Appearance: obese Orientation: alert, oriented to person and oriented to place Neck Neck: full ROM and other (large girth) Resp Effort & Inspection: labored (mild after ambulating from bathroom to bed) Auscultation: clear to auscultation bilaterally and diminished lung sounds Cardio Jugular venous pressure: no JVD Rate: regular rate Rhythm: regular rhythm Heart Sounds: S1 normal and S2 normal GI Inspection: obesity Palpation: soft and nontender Auscultation: normal bowel sounds Skin General skin exam: no rashes or lesions noted Neuro General: patient alert and moves all extremities Motor: muscle tone normal throughout Extrem General: no calf tenderness and edema Laterality: bilateral (Nonpitting) Results Labs Result diagrams: 12/27/19 15:45 12/27/19 15:45 Labs: Laboratory Results - last 24 hr 12/27/19 12/27/19 12/27/19 15:37 15:45 15:45 WBC 9.60 RBC 6.08 H Hgb 16.7 Hct 53.5 H MCV 88.0 MCH 27.5 MCHC 31.2 L RDW 15.5 H Plt Count 381 MPV 10.1 Immature Gran % 0.7 Neutrophils % 70.7 Lymphocytes % 19.7 Monocytes % 6.4 Eosinophils % 2.0 Basophils % 0.5 Nucleated RBC % 0 Absolute Neutrophils 6.79 H Absolute Lymphocytes 1.89 Absolute Monocytes 0.61 Absolute Eosinophils 0.19 Absolute Basophils 0.05 D-Dimer ABG Sample Site Left radial ABG pH 7.40 ABG pCO2 60 H ABG pO2 50 L ABG HCO3 38 H ABG Total CO2 33 H ABG O2 Saturation 86 L ABG Base Excess 13 H FiO2 21% Sodium 140 Potassium 2.7 L* Chloride 100 Carbon Dioxide 40.1 H Anion Gap -0.1 L BUN 13 Creatinine 0.97 Estimated GFR/1.73 m2 >= 60.00 Glucose 95 Calcium 9.2 Magnesium 1.9 Total Bilirubin 0.8 AST 55 H ALT 74 H Alkaline Phosphatase 123 H Troponin I < 0.05 NT-Pro-B Natriuret Pep 36 Total Protein 8.7 H Albumin 3.8 12/27/19 12/27/19 15:45 19:40 WBC RBC Hgb Hct MCV MCH MCHC RDW Plt Count MPV Immature Gran % Neutrophils % Lymphocytes % Monocytes % Eosinophils % Basophils % Nucleated RBC % Absolute Neutrophils Absolute Lymphocytes Absolute Monocytes Absolute Eosinophils Absolute Basophils D-Dimer 264 ABG Sample Site ABG pH ABG pCO2 ABG pO2 ABG HCO3 ABG Total CO2 ABG O2 Saturation ABG Base Excess FiO2 Sodium Potassium Chloride Carbon Dioxide Anion Gap BUN Creatinine Estimated GFR/1.73 m2 Glucose Calcium Magnesium Total Bilirubin AST ALT Alkaline Phosphatase Troponin I < 0.05 NT-Pro-B Natriuret Pep Total Protein Albumin Last Vital Signs Temp 36.7 C 12/27/19 19:24 Pulse 62 12/27/19 19:24 Resp 18 12/27/19 19:24 BP 138/84 12/27/19 19:24 Pulse Ox 96 12/27/19 19:24 COVID-19 Screening Have you,or household,traveled outside [place] in last 14 days?: Yes Had IN PERSON contact w/suspected or confirmed C-19 person: No
[2019-12-27] MEDS: HYDROcodone 10/Acetaminophen 325 TAB PO (22:05)
[2019-12-27] MEDS: Potassium Chloride 20 MEQ TABCR PO (22:06)
[2019-12-27] MEDS: Insulin Glargine 300 UNITS/3 ML PEN 15 UNITS SC (22:10)
--- NOTE | 2019-12-28 00:24 | NUR.NOTE ---
Nursing Note: Patient found kneeling on the floor next to his bed during rounds at 0000 hrs 12/28/2019. Patient drowsy and unable to state the chain of events that led to his position when found by nursing. Patient's BiPap was also found to be out of position, high on the face. Assisted patient back to bed, adjusted the position of the patient's bipap mask. One lower rail raised to prevent patient from rolling out of bed in his sleep/somnolent state.
[2019-12-28 03:44] LABS: Bilirubin Negative (Negative); Blood Negative (Negative); Clarity Clear (Clear); Glucose 500 mg/dL (Negative); Ketones Negative (Negative); Leukocyte Esterase Negative (Negative); Nitrite Negative (Negative); Specific Gravity >= 1.030 (1.005-1.025)
[2019-12-28 04:03] LABS: *AMPHETAMINES SCREEN URINE Negative (Negative); *BARBITURATES SCREEN URINE Negative (Negative); *BENZODIAZEPINES SCREEN URINE POSITIVE (Negative); Cannabinoids THC Negative (Negative); Cocaine Screen,Urine Negative (Negative); METHADONE URINE SCREEN Negative (Negative); OPIATES URINE SCREEN POSITIVE (Negative)
[2019-12-28 04:06] LABS: Tricyclic Antidepressants Negative (Negative)
[2019-12-28] MEDS: Methylphenidate 10 MG TAB 20 MG PO ×3 (06:08→16:06)
[2019-12-28 07:47] LABS: Abs Immature Grans 0.05 10^3/uL (0.0-0.06); Absolute Basophil Count 0.04 10^3/uL (0.0-0.2); Absolute Eosinophil Count 0.15 10^3/uL (0.0-0.7); Absolute Lymphocyte Count 1.57 10^3/uL (1.2-3.4); Absolute Monocyte Count 0.51 10^3/uL (0.1-0.8); Absolute Neutrophil Count 6.04 10^3/uL (1.2-6.7); Basophils % 0.5; Eosinophils % 1.8; HCT 49.6 % (40.0-50.0); HGB 15.4 g/dL (13.5-17.5); Immature Grans % 0.6; Lymphocytes % 18.8; MCH 27.1 pg (27.0-33.0); MCV 87.3 fL (80-95); MPV 10.3 fL (8.0-11.0); Monocytes % 6.1; Neutrophils % 72.2; Nucleated RBC 0 %; Platelet Count 342 10^3/uL (130-400); RBC 5.68 10^6/uL (4.36-5.78); RDW 15.3 % (11.8-14.1); RDW-SD 48.8 fL; WBC 8.36 10^3/uL (4.4-10.8)
[2019-12-28 07:50] LABS: ALT 72 U/L (16-63); AST 56 U/L (15-37); Albumin 3.3 g/dL (3.4-5.0); Alkaline Phosphatase 106 U/L (46-116); BUN 12 mg/dL (7-18); Bilirubin, Total 1.1 mg/dL (0.2-1.0); CO2 38.1 mmol/L (21.0-32.0); Calcium 8.8 mg/dL (8.5-10.1); Glucose 122 mg/dL (74-106); Total Protein 7.7 g/dL (6.4-8.2)
[2019-12-28 08:02] LABS: Chloride 98 mmol/L (98-107); Sodium 141 mmol/L (136-145)
[2019-12-28 08:03] LABS: BE 14 mmol/L (-2-3); HCO3 38 mmol/L (22-26); pCO2 59 mmHg (35-45); pH 7.42 (7.35-7.45); pO2 49 mmHg (80-105); sO2 87 % (95-98); tCO2 33 mmol/L (23-27)
[2019-12-28 08:06] LABS: FIO2 21 %; Site Left Radial
[2019-12-28 09:10] VITALS: BP 123/70; PULSE 71; RESP 22; TEMP 36.6; O2SAT 93
[2019-12-28] MEDS: Celecoxib 200 MG CAP 400 MG PO (09:10)
[2019-12-28] MEDS: amLODIPine 10 MG TAB PO (09:10)
[2019-12-28] MEDS: Loratidine 10 MG TAB PO (09:10)
[2019-12-28] MEDS: Dexlansoprazole 30 MG CAP 60 MG PO (09:10)
[2019-12-28] MEDS: Isosorbide Mononitrate 30 MG TABCR PO (09:11)
[2019-12-28] MEDS: Chlorthalidone 25 MG TAB 50 MG PO (09:11)
[2019-12-28] MEDS: Escitalopram 20 MG TAB PO (09:11)
[2019-12-28] MEDS: Atorvastatin 20 MG TAB PO (09:11)
[2019-12-28] MEDS: Potassium Chloride 20 MEQ TABCR 40 MEQ PO (09:12)
[2019-12-28] MEDS: Insulin Aspart 300 UNITS/3 ML PEN SC (09:12)
[2019-12-28] MEDS: Enoxaparin 40 MG/0.4 ML SYR SC (09:15)
[2019-12-28] MEDS: POTASSIUM CHLORIDE 20 MEQ/100 ML BAG 50 MEQ IVPB ×2 (09:15→11:30)
[2019-12-28] MEDS: Aspirin E.C. 81 MG TABEC PO (09:15)
[2019-12-28] MEDS: HYDROcodone 10/Acetaminophen 325 TAB PO (09:28)
[2019-12-28 10:07] VITALS: RESP 12
[2019-12-28 10:10] VITALS: O2SAT 89
[2019-12-28 10:19] VITALS: O2SAT 94
[2019-12-28 10:56] LABS: Potassium 2.9 mmol/L (3.5-5.1)
[2019-12-28 12:29] VITALS: BP 138/84; PULSE 65; RESP 22; TEMP 36.8; O2SAT 95
--- NOTE | 2019-12-28 13:51 | PGE_ITS ---
Date of Service Date of service: 12/28/19 Time of Service: 13:51 Assessment and Plan Assessment and plan (1) Acute on chronic respiratory acidosis: Status: Acute Assessment and plan: d/t noncompliance with bipap, unfunctional unit, obesity hypoventilation. no evidence of pneumonia or COPD exacerbation stable and likely baseline. respiratory following and recommendations for trilogy. 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 (2) Fungal rash of trunk: Status: Acute Assessment and plan: miconazole powder (3) Hypertension: Status: Chronic Assessment and plan: blood pressures stable, Cont amlodipine, diuretics Monitor Qualifiers: Hypertension type: essential hypertension Qualified Code(s): I10 - Essential (primary) hypertension (4) Depression: Status: Chronic Assessment and plan: Cont Lexapro Qualifiers: Depression Type: unspecified Qualified Code(s): F32.9 - Major depressive disorder, single episode, unspecified (5) Sleep apnea: Status: Chronic Assessment and plan: BiPAP while asleep. Considerable weight loss would be desirable. Qualifiers: Sleep apnea type: unspecified type Qualified Code(s): G47.30 - Sleep apnea, unspecified (6) Smoker: Status: Chronic Assessment and plan: Nicotine replacement prn. Encourage cessation (7) COPD (chronic obstructive pulmonary disease): Status: Chronic Assessment and plan: Cont home Umeclidinium bromide inhaler. PRN albuterol inhaler No acute exacerbation by clinical exam or his estimation. (8) Morbid obesity: Status: Chronic Assessment and plan: Bariatric surgery, is covered by his insurance and he desires, would be an appropriate avenue to explore. (9) Narcolepsy: Status: Chronic Assessment and plan: Cont methylphenidate 20mg TID (10) Obesity hypoventilation syndrome: Status: Acute Assessment and plan: BiPAP while asleep Wt loss would be indicated. (11) Hypokalemia: Status: Acute Assessment and plan: continue potassium replacement. IV dislodged so will change to oral replacement. add mag level to todays labs, was 1.9 yesterday replete and follow (12) DVT prophylaxis: Status: Acute Assessment and plan: enoxaparin while hospitalized. (13) Discharge planning issues: Status: Acute Assessment and plan: case management following. anticipate a discharge to home case discussed with dr rogers Subjective Subjective Patient reports: no new complaints Interval history since last seen: reports breathing is better, occasional cough with scant clear sputum. no fevers, states he is eating and drinking well. fungal rash in bilateral arm pits. refusing to wear telemetry, dislodged IV. Exam Const General: disheveled and ill appearing (older appearing than stated age) chronically Nutritional Appearance: obese (super morbid) Orientation: alert, awake and oriented x3 HENMT Head: normal to inspection, normocephalic and atraumatic Resp Effort & Inspection: able to speak in complete sentences, no respiratory distress and not tachypneic Auscultation: diminished lung sounds (throughout, no wheezing or rhonchi appreciated) GI Inspection: large pannus and obesity Skin Rashes: rashes noted (fungal bilateral axilla) Neuro General: patient alert, patient awake, patient oriented x3, moves all e xtremities and no focal motor deficits Objective Last Vital Signs Temp 36.8 C 12/28/19 12:29 Pulse 65 12/28/19 12:29 Resp 22 12/28/19 12:29 BP 138/84 12/28/19 12:29 Pulse Ox 95 12/28/19 12:29 Laboratory Results - last 24 hr 12/27/19 12/27/19 12/27/19 15:37 15:40 15:45 WBC RBC Hgb Hct MCV MCH MCHC RDW Plt Count MPV Immature Gran % Neutrophils % Lymphocytes % Monocytes % Eosinophils % Basophils % Nucleated RBC % Absolute Neutrophils Absolute Lymphocytes Absolute Monocytes Absolute Eosinophils Absolute Basophils D-Dimer ABG Sample Site Left radial ABG pH 7.40 ABG pCO2 60 H ABG pO2 50 L ABG HCO3 38 H ABG Total CO2 33 H ABG O2 Saturation 86 L ABG Base Excess 13 H FiO2 21% Sodium 140 Potassium 2.7 L* Chloride 100 Carbon Dioxide 40.1 H Anion Gap -0.1 L BUN 13 Creatinine 0.97 Estimated GFR/1.73 m2 >= 60.00 Glucose 95 Calcium 9.2 Magnesium 1.9 Total Bilirubin 0.8 AST 55 H ALT 74 H Alkaline Phosphatase 123 H Troponin I < 0.05 NT-Pro-B Natriuret Pep 36 Total Protein 8.7 H Albumin 3.8 Urine Color Urine Clarity Urine pH Ur Specific [place] Urine Protein Urine Ketones Urine Blood Urine Nitrite Urine Bilirubin Urine Urobilinogen Ur Leukocyte Esterase Urine Glucose Urine Opiates Screen Urine Methadone Screen Ur Barbiturates Screen Ur Tricyclics Screen Ur Amphetamines Screen U Benzodiazepines Scrn Urine Cocaine Screen Ur THC Screen COVID-[facility] Cancelled Ref Test Perform Site Cancelled 12/27/19 12/27/19 12/27/19 15:45 15:45 19:40 WBC 9.60 RBC 6.08 H Hgb 16.7 Hct 53.5 H MCV 88.0 MCH 27.5 MCHC 31.2 L RDW 15.5 H Plt Count 381 MPV 10.1 Immature Gran % 0.7 Neutrophils % 70.7 Lymphocytes % 19.7 Monocytes % 6.4 Eosinophils % 2.0 Basophils % 0.5 Nucleated RBC % 0 Absolute Neutrophils 6.79 H Absolute Lymphocytes 1.89 Absolute Monocytes 0.61 Absolute Eosinophils 0.19 Absolute Basophils 0.05 D-Dimer 264 ABG Sample Site ABG pH ABG pCO2 ABG pO2 ABG HCO3 ABG Total CO2 ABG O2 Saturation ABG Base Excess FiO2 Sodium Potassium Chloride Carbon Dioxide Anion Gap BUN Creatinine Estimated GFR/1.73 m2 Glucose Calcium Magnesium Total Bilirubin AST ALT Alkaline Phosphatase Troponin I < 0.05 NT-Pro-B Natriuret Pep Total Protein Albumin Urine Color Urine Clarity Urine pH Ur Specific [place] Urine Protein Urine Ketones Urine Blood Urine Nitrite Urine Bilirubin Urine Urobilinogen Ur Leukocyte Esterase Urine Glucose Urine Opiates Screen Urine Methadone Screen Ur Barbiturates Screen Ur Tricyclics Screen Ur Amphetamines Screen U Benzodiazepines Scrn Urine Cocaine Screen Ur THC Screen COVID-[facility] PCR Ref Test Perform Site 12/28/19 12/28/19 12/28/19 02:45 02:45 07:14 WBC RBC Hgb Hct MCV MCH MCHC RDW Plt Count MPV Immature Gran % Neutrophils % Lymphocytes % Monocytes % Eosinophils % Basophils % Nucleated RBC % Absolute Neutrophils Absolute Lymphocytes Absolute Monocytes Absolute Eosinophils Absolute Basophils D-Dimer ABG Sample Site ABG pH ABG pCO2 ABG pO2 ABG HCO3 ABG Total CO2 ABG O2 Saturation ABG Base Excess FiO2 Sodium 141 Potassium 2.9 L* Chloride 98 Carbon Dioxide 38.1 H Anion Gap -1.1 L BUN 12 Creatinine 1.00 Estimated GFR/1.73 m2 >= 60.00 Glucose 122 H Calcium 8.8 Magnesium Total Bilirubin 1.1 H AST 56 H ALT 72 H Alkaline Phosphatase 106 Troponin I NT-Pro-B Natriuret Pep Total Protein 7.7 Albumin 3.3 L Urine Color Yellow Urine Clarity Clear Urine pH 6.0 Ur Specific [place] >= 1.030 H Urine Protein Negative Urine Ketones Negative Urine Blood Negative Urine Nitrite Negative Urine Bilirubin Negative Urine Urobilinogen 1.0 H Ur Leukocyte Esterase Negative Urine Glucose 500 H Urine Opiates Screen Positive A Urine Methadone Screen Negative Ur Barbiturates Screen Negative Ur Tricyclics Screen Negative Ur Amphetamines Screen Negative U Benzodiazepines Scrn Positive A Urine Cocaine Screen Negative Ur THC Screen Negative COVID-19 PCR Nasopharyn COVID-19 PCR Ref Test Perform Site 12/28/19 12/28/19 07:14 07:56 WBC 8.36 RBC 5.68 Hgb 15.4 Hct 49.6 MCV 87.3 MCH 27.1 MCHC 31.0 L RDW 15.3 H Plt Count 342 MPV 10.3 Immature Gran % 0.6 Neutrophils % 72.2 Lymphocytes % 18.8 Monocytes % 6.1 Eosinophils % 1.8 Basophils % 0.5 Nucleated RBC % 0 Absolute Neutrophils 6.04 Absolute Lymphocytes 1.57 Absolute Monocytes 0.51 Absolute Eosinophils 0.15 Absolute Basophils 0.04 D-Dimer ABG Sample Site Left radial ABG pH 7.42 ABG pCO2 59 H ABG pO2 49 L ABG HCO3 38 H ABG Total CO2 33 H ABG O2 Saturation 87 L ABG Base Excess 14 H FiO2 21 Sodium Potassium Chloride Carbon Dioxide Anion Gap BUN Creatinine Estimated GFR/1.73 m2 Glucose Calcium Magnesium Total Bilirubin AST ALT Alkaline Phosphatase Troponin I NT-Pro-B Natriuret Pep Total Protein Albumin Urine Color Urine Clarity Urine pH Ur Specific [place] Urine Protein Urine Ketones Urine Blood Urine Nitrite Urine Bilirubin Urine Urobilinogen Ur Leukocyte Esterase Urine Glucose Urine Opiates Screen Urine Methadone Screen Ur Barbiturates Screen Ur Tricyclics Screen Ur Amphetamines Screen U Benzodiazepines Scrn Urine Cocaine Screen Ur THC Screen COVID-19 PCR Nasopharyn COVID-19 PCR Ref Test Perform Site
--- NOTE | 2019-12-28 15:29 | PHA.REVIEW ---
Pharmacy Admission Review - Admission Clinical Review (Last Reviewed 12/27/19 @ 20:46 by Tyson Walker MD) Hypokalemia (Acute) Obesity hypoventilation syndrome (Acute) Acute on chronic respiratory acidosis (Acute) ibuprofen Adverse Reaction (Intermediate, Unverified 12/27/19 15:33) GI Bleeding Height 5 ft 9 in Weight 208.8 kg - Renal Dosing Renal Dosing: BUN 12 mg/dL (7-18) 12/28/19 07:14 Creatinine 1.00 mg/dL (0.70-1.30) 12/28/19 07:14 Medications needing adjustments: Reviewed (CrCl ~88ml/min) - Anticoagulation Anticoagulation: Hgb 15.4 g/dL (13.5-17.5) 12/28/19 07:14 Hct 49.6 % (40.0-50.0) 12/28/19 07:14 Plt Count 342 10^3/uL (130-400) 12/28/19 07:14 Creatinine 1.00 mg/dL (0.70-1.30) 12/28/19 07:14 DVT Prohphylaxis: Reviewed Medications: Enoxaparin Therapeutic Anticoagulation: Reviewed Medications: Aspirin - Opiate Usage Evaluate Pain Scale/Pains Meds: Reviewed - Relevant Labs Sodium 141 mmol/L (136-145) 12/28/19 07:14 Potassium 2.9 mmol/L (3.5-5.1) L* 12/28/19 07:14 Chloride 98 mmol/L (98-107) 12/28/19 07:14 Magnesium 1.9 mg/dL (1.8-2.4) 12/27/19 15:45 - DM Control DM Control: Glucose 122 mg/dL (74-106) H 12/28/19 07:14 Finger Stick Blood Glucose 110 Finger Stick Blood Glucose 144 Finger Stick Blood Glucose 144 Insulin Dosing: Reviewed (home glargine dose = 50 u at hs) - Heart Failure/MA Heart Failure/MA: Troponin I < 0.05 ng/mL (<0.06) 12/27/19 19:40 NT-Pro-B Natriuret Pep 36 pg/mL (<300) 12/27/19 15:45 - BP Control BP Control: Blood Pressure 138/84 Blood Pressure 123/70 If elevated: Reviewed - Qtc Review If Elevated: Reviewed (qtc 447) - IV to PO Switch IV Medications: Reviewed - Home Meds Home Med List reviewed: Reviewed Relevent Home Meds Not ordered & why?: furosemide - takes prn reportedly (no recent rx filled), testosterone - weekly IM - Current meds Current Medication Order Review: Reviewed (2 pt's own, checking with nursing if pt can provide)
--- NOTE | 2019-12-28 15:43 | PDOC.CMIN ---
- If Service Date Differs Date of service: 12/28/19 Time of Service: 15:43 Care Management Initial Assess REASON FOR HOSPITALIZATION:: Acute on Chronic Respiratory Acidosis PAST MEDICAL HISTORY/PAST SURGICAL HISTORY:: PFSH. Medical History. Abnormal cardiovascular stress test. Back muscle spasm. Blind left eye. Callus of foot. Chronic low back pain. Coccyx disorder. COPD (chronic obstructive pulmonary disease). Cough. Depression. Gastroesophageal reflux disease. Hyperprolactinemia. Hypertension. Hypogonadism. Impaired fasting glucose. Insomnia. Leg edema. Marital problems. Morbid obesity. Narcolepsy. Neck pain. Nocturia. Organic impotence. Skin lesion of foot. Sleep apnea. Smoker PREVIOUS FUNCTIONAL STATUS/SOCIAL/FAMILY SUPPORTS:: Darvin lives in a one bedroom apartment with his 17 year old son and his son's fiance. Darvin is currently on disability, and has been for about 15 years. Prior to his disability, he worked in [employer] service. He was preparing for bariatric surgery in 2018, but was unable to have the surgery due to him not losing the required amount of weight prior to the surgery. He is independent with his ADL's, but per his ex , he has not been taking good care of himself. He does see his PCP monthly in the office. CURRENT FUNCTIONAL STATUS:: Darvin is currently a PUI for Covid 19, under precautions, therefore CM was not able to meet with him today. CM called Mary Ann, his ex , and discussed his history and provided her with updates on his care plan. She is on his most recent HIPAA. Per report, RT is attempting to have his insurance cover a Trilogy machine. CM will continue to follow. ADVANCE DIRECTIVES:: None on file currently. CM will offer [place] AD forms once able to meet with him. Has patient been provided with info about the portal/API?: No Did the patient sign up for the portal?: No CODE STATUS:: Full Code INSURANCE COVERAGE / FINANCIAL ISSUES:: [facility] CURRENT HOME/COMMUNITY SERVICES/EQUIPMENT:: Per Darvin Reese does not currently have any services in the community. PRIMARY CARE PHYSICIAN:: Татьяна Koehler POTENTIAL DISCHARGE NEEDS:: Evaluations for further needs, follow up appointments, [facility] referrals. PATIENT/FAMILY EDUCATION NEEDS:: Review discharge instructions regarding activity levels and medications, discussion of self care needs including ask me three. ANTICIPATED BARRIERS TO DISCHARGE:: None identified at this time. TRANSPORTATION:: Via private vehicle by family. PLAN:: Anticipate Darvin will return home when medically cleared. He may require new services, if indicated at discharge. CM will send a referral to [facility] for additional support in the community. He will transport via private vehicle by family. He will follow up with his PCP and discharge plan of care. CM will continue to follow.
[2019-12-28] MEDS: Potassium Chloride 20 MEQ TABCR PO ×2 (16:06→21:34)
[2019-12-28 16:56] VITALS: BP 132/87; PULSE 66; RESP 20; TEMP 36.7; O2SAT 94
[2019-12-28] MEDS: Insulin Glargine 300 UNITS/3 ML PEN 15 UNITS SC (21:26)
[2019-12-28] MEDS: Umeclidinium 7 CAP INHALER 1 CAP IH (21:31)
[2019-12-28] MEDS: Nystatin POWDER 15 GM JAR TP (21:35)
[2019-12-29 01:35] VITALS: BP 120/74; PULSE 59; RESP 20; TEMP 36.3; O2SAT 86
[2019-12-29 01:45] VITALS: O2SAT 93
[2019-12-29] MEDS: Methylphenidate 10 MG TAB 20 MG PO ×3 (06:50→15:18)
[2019-12-29 07:10] VITALS: O2SAT 86
[2019-12-29 07:39] LABS: Abs Immature Grans 0.05 10^3/uL (0.0-0.06); Absolute Basophil Count 0.04 10^3/uL (0.0-0.2); Absolute Eosinophil Count 0.21 10^3/uL (0.0-0.7); Absolute Lymphocyte Count 1.66 10^3/uL (1.2-3.4); Absolute Monocyte Count 0.46 10^3/uL (0.1-0.8); Absolute Neutrophil Count 5.51 10^3/uL (1.2-6.7); Basophils % 0.5; Eosinophils % 2.6; HCT 48.6 % (40.0-50.0); HGB 15.3 g/dL (13.5-17.5); Immature Grans % 0.6; Lymphocytes % 20.9; MCH 27.4 pg (27.0-33.0); MCHC 31.5 % (32.0-36.0); MCV 87.1 fL (80-95); MPV 10.2 fL (8.0-11.0); Monocytes % 5.8; Neutrophils % 69.6; Nucleated RBC 0 %; Platelet Count 327 10^3/uL (130-400); RBC 5.58 10^6/uL (4.36-5.78); RDW 15.2 % (11.8-14.1); RDW-SD 48.5 fL; WBC 7.93 10^3/uL (4.4-10.8)
[2019-12-29 07:48] LABS: Anion Gap 5.5 mmol/L (3-11); BUN 14 mg/dL (7-18); CO2 33.5 mmol/L (21.0-32.0); CREATININE 0.95 mg/dL (0.70-1.30); Chloride 100 mmol/L (98-107); Glucose 113 mg/dL (74-106); Potassium 3.2 mmol/L (3.5-5.1); Sodium 139 mmol/L (136-145)
--- NOTE | 2019-12-29 08:02 | OT.INNT ---
Date of service: 12/29/19 Time of Service: 08:02 Occupational Therapy Notes 12/29/19 OT consult received and pts chart was reviewed. OT discussed with RN pts current status who reports that he is still PUI. Based on this and pt's level of function at this time. OT will hold on OT consult tomorrow and attempt to consult with pt tomorrow. Marcelle Hyde, OTR/[facility]
[2019-12-29 08:11] VITALS: BP 131/89; PULSE 81; RESP 20; TEMP 36.6; O2SAT 97
[2019-12-29] MEDS: Isosorbide Mononitrate 30 MG TABCR PO (08:13)
[2019-12-29] MEDS: Celecoxib 200 MG CAP 400 MG PO (08:13)
[2019-12-29] MEDS: amLODIPine 10 MG TAB PO (08:13)
[2019-12-29] MEDS: Escitalopram 20 MG TAB PO (08:13)
[2019-12-29] MEDS: Dexlansoprazole 30 MG CAP 60 MG PO (08:13)
[2019-12-29] MEDS: Loratidine 10 MG TAB PO (08:14)
[2019-12-29] MEDS: Atorvastatin 20 MG TAB PO (08:14)
[2019-12-29] MEDS: Chlorthalidone 25 MG TAB 50 MG PO (08:14)
[2019-12-29] MEDS: Potassium Chloride 20 MEQ TABCR PO ×2 (08:14→15:18)
[2019-12-29] MEDS: Aspirin E.C. 81 MG TABEC PO (08:14)
[2019-12-29] MEDS: Nystatin POWDER 15 GM JAR TP (08:16)
[2019-12-29] MEDS: Enoxaparin 40 MG/0.4 ML SYR SC (09:48)
[2019-12-29] MEDS: Potassium Chloride 20 MEQ TABCR 40 MEQ PO (09:50)
--- NOTE | 2019-12-29 10:17 | IN_ITS ---
Date of service: 12/30/19 Time of Service: 10:17 PT Notes Visit Reasons: ACUTE ON CHRONIC RESPIRATORY ACIDOSIS Physical Therapy Inpatient Initial Evaluation Date: 12/29/2019 Referring Doctor: Theresa Peña MD PT Orders: PT CONSULT: Limited ability Precautions: Fall. Standard. Activity as tolerated. Morbidly obese. Patient Profile/Admitting Diagnosis: Darvin is a 49-year-old male with past medical history as for chronic obstructive pulmonary disease and depression who is admitted with diagnosis of acute on chronic respiratory acidosis, obesity hypoventilation syndrome, and hypokalemia. PMHX: Medical History Abnormal cardiovascular stress test Back muscle spasm Blind left eye Callus of foot Chronic low back pain Coccyx disorder COPD (chronic obstructive pulmonary disease) Cough Depression Gastroesophageal reflux disease Hyperprolactinemia Hypertension Hypogonadism Impaired fasting glucose Insomnia Leg edema Marital problems Morbid obesity Narcolepsy Neck pain Nocturia Organic impotence Skin lesion of foot Sleep apnea Smoker Social History/Home Situation: Lives with and kids in an aprtment building with three steps to enter with rails. Indepedent tired admission. No falls in the past 12 months. Equipment Owned/DME: None Subjective: Agreeable to PT consult. It mildly out of breath for immediately after ambulation activity. Objective: General Observation: Side lying in bed. Breathing mildly labored. Morbidly obese. Mental Status: Alert and oriented x4 Pain: None reported Vital Signs: Oxygen saturation low 90% and high of 97% during ambulation activity on room air. ROM: Right Upper Extremity: Shoulder Flexion WFL. Shoulder abduction WFL. Elbow flexion WFL. Wrist flexion WFL. Opening and closing of hand WFL. Left Upper Extremity: Shoulder Flexion WFL. Shoulder abduction WFL. Elbow flexion WFL. Wrist flexion WFL. Opening and closing of hand WFL. Right Lower Extremity: Hip flexion WFL. Hip abduction WFL. Knee flexion WFL. Ankle dorsiflexion WFL. Ankle plantarflexion WFL. Left Lower Extremity: Hip flexion WFL. Hip abduction WFL. Knee flexion WFL. Ankle dorsiflexion WFL. Ankle plantarflexion WFL. Strength: Right Upper Extremity: Shoulder flexors 4/5. Shoulder abductors 4/5. Elbow flexors 4/5. Elbow extensors 4/5. Disaster Or Damage Control Specialist strong. Left Upper Extremity: Shoulder flexors 4/5. Shoulder abductors 4/5. Elbow flexors 4/5. Elbow extensors 4/5. Disaster Or Damage Control Specialist strong. Right Lower Extremity: Hip flexors 4/5. Hip abductors 4/5. Knee flexors 4/5. Knee extensors 4/5. Ankle dorsiflexors 4/5. Ankle plantarflexors 4/5. Left Lower Extremity: Hip flexors 4/5. Hip abductors 4/5. Knee flexors 4/5. Knee extensors 4/5. Ankle dorsiflexors 4/5. Ankle plantarflexors 4/5. Sensation: Intact as to pain and pressure on bilateral lower extremities. Bed Mobility/Transfers: Rolling independent Supine to sit independent Sit to supine independent Sit to stand independent Stand to sit independent Bed to chair independent Chair to bed independent Gait: Supervision with 50 feet + 150 feet with no assistive device with oxygen saturation of 90%-97% on room air. Balance: Static Sitting: Normal Dynamic Sitting: Normal Static Standing: Good Dynamic Standing: Good Special Tests: Mobility Limitations Standardized Measure [facility] 6 clicks Basic Mobility Inpatient Short Form: Raw Score: 24 CMS Score: 0% deficit Informed Consent/Education: Patient instructed in purpose of PT consult. Assessment: Darvin demonstrates ability to perform all bed mobility, transfer and ambulation task performance with increased completion time and mild shortness of breath. He may return to the community at previous mobility level for short distances. Patient presents with clinical signs and symptoms consistent with current/admitting diagnoses that have resulted to mobility limitations, gait instability, generalized weakness, and impairment of motor control as demonstrated by the following impairment level findings: 1. Decreased strength to BUE/LE major muscle groups 3. Impaired activity tolerance Impairments are contributing to the following functional limitations: 1. Increase completion time for mobility ADL performance Patient is assessed as a 68036 asked to moderate complexity based on the following: History: 49-year-old male with impairment level findings, functional limitations, and past medical history as indicated above Examination: Demonstrable impairment in strength, balance, and mobility level with underlying impairments and functional limitations as documented above Presentation:Evolving Decision Makin moderate complexity Goals: N/A. PT consult and 1 treatment session only. Plan of Care/Treatment Plan: N/A. PT consult and 1 treatment session only. DISCHARGE RECOMMENDATIONS: Home when medically cleared by hospitalist. No equipment needs at this time. TREATMENT CODE/TIME: 58646 x 25-minute, 58986 x 8 minutes beginning at 10:17 AM. Thank you for the opportunity to participate in the care of this patient. Carole Farmer PT, DPT, CLT [facility] [place], [place]
[2019-12-29 11:02] VITALS: PULSE 72; PULSE 74; PULSE 86; RESP 18; RESP 22; O2SAT 90; O2SAT 94; O2SAT 95
[2019-12-29 11:13] VITALS: O2SAT 95
--- NOTE | 2019-12-29 11:52 | DSE_ITS ---
Date of service: 12/29/19 Time of Service: 11:52 DS: Diagnosis Discharge Diagnosis (1) Acute on chronic respiratory acidosis: Status: Acute (2) Fungal rash of trunk: Status: Acute (3) Hypertension: Status: Chronic (4) Depression: Status: Chronic (5) Sleep apnea: Status: Chronic (6) Smoker: Status: Chronic (7) COPD (chronic obstructive pulmonary disease): Status: Chronic (8) Morbid obesity: Status: Chronic (9) Narcolepsy: Status: Chronic (10) Obesity hypoventilation syndrome: Status: Acute (11) Hypokalemia: Status: Acute Discharge Plan Disposition Patient Disposition: AGAINST MEDICAL ADVICE Condition: Improving Discharge Details Reason For Visit: ACUTE ON CHRONIC RESPIRATORY ACIDOSIS Admit Date/Time: 12/27/19 18:56 Admit Provider: Tyson Walker Attending Provider: Tyson Walker Primary Care Provider: Татьяна Koehler Hospital Course Hospital Course: This is a 49 yo super morbid obese male with a history of COPD, DM2, hyperprolactinemia, HTN, hypogonadism, Narcolepsy, JOSE DE JESUS, tobacco abuse disorder who presented to the ED from his PCP office where he was scheduled for his annual physical exam. He was noted to have a RA O2 saturation of 79%. He endorsed feeling short of air and intermittent chest pain for months. He stated he had stopped using his home BiPAP. Work up included a CXR which was negative for acute findings. His ABG showed a pH of 7.4, pCO2 of 60, pO2 of 50. WBC count normal. Hgb 16.7. Na 140, K+ 2.7, creatinine 0.97, Mg 1.9. Bili 0.8. AST 55. ALT 74. Troponin neg, NT-Pro-BNP 36. D-dimer normal. He was placed on BiPAP with an improvement in his ease of breathing. He was admitted to med/surg for acute on chronic respiratory failure d/t non- compliance and obesity hypoventilation. His potassium was replaced. he remained medically stable with no c/o. He was afebrile and felt to be significantly improved from his most recent baseline using bipap here on med/surg while sleeping. He underwent an ambulatory pulse oximetry study and does not currently meet qualifications for oxygen but overnight oximetry should be evaluated when home on his new triolgy unit. It is medically necessary and beneficial that Darvin receive NIV via Trilogy in the home to treat his Chronic Respiratory Failure secondary to COPD. Darvin experiences on going periods of shortness of breath, lethargy and an overall poor quality of life as his disease process will inevitability worsen. Darvin?s current home BI-PAP device is no longer effective and uncomfortable and a tradi tional BI-PAP would not be the most effective in treating his current chronic issues, JOSE DE JESUS is not an underlying cause contributing to any of his current complex ?chronic? respiratory issues. Trilogy allows for two different NIV prescriptions one to use during the day/wakefulness (MPV) and one to use when sleeping (Avaps-AE), both of these modes are only found within the Trilogy NIV device. Avaps-AE will assist him with meeting his demands of a tidal volume and minute ventilation by allowing a longer expiratory time reducing the effects of flow limitation and air trapping, decrease his current work of breathing, decrease CO2 retention, increase his oxygenation and most importantly improve his current quality of life. Mouth piece ventilation (MPV) will allow the patient to ?SIP and Puff? breaths during the daytime periods when he finds himself short of breath and needing extra support. It is medically necessary that he use the NIV via the Trilogy up to 24 hours daily (MPV/AVAPS-AE). The T rilogy operates on a battery so he can use the therapy uninterrupted for medical appointments or even during power outages as a lapse in use may lead to life threatening consequences. He is eating and drinking well and has been up and ambulating independently with no evidence of worsening respiratory distress and no hypoxia. He has SOB on exertion at baseline. We did need to replete his potassium while hospitalized and he should have it rechecked next week and additional orders as per primary care. He is to be discharged to home with no medication changes and f/u outpatient with pcp. prior to discharge I was notified that trilogy machine could not be delivered today and would be delivered tomorrow morning. this was discussed with patient who states he does not want to stay another night and is wanting to leave AMA. Esteban from respiratory reports she reviewed risks of leaving without proper respiratory equipment and supplies and benefits of staying one more night so they could be obtained but he wishes to leave AMA regardless. He is oriented to person place and time. He signs ama paperwork but will be provided formal discharge instructions and trilogy prescription to facilitate his outpatient treatment and disease processes. He is instructed to return to the ED for new or worsening symptoms discharge AMA discussed with DR Peña [place] Meds and New Rx's Prescriptions: Continued celecoxib [Celebrex] 400 mg capsule 400 mg PO DAILY RF: 0 hydrocodone-acetaminophen 10-325 mg tablet 1 tab PO Q6H PRNRF: 0 diazepam 10 mg tablet 10 mg PO TID PRNRF: 0 Dexilant 60 mg capsule,biphase delayed releas 60 mg PO DAILY RF: 0 escitalopram oxalate [Lexapro] 20 mg tablet 20 mg PO DAILY RF: 0 cabergoline 0.5 mg tablet See Rx Instructions PO ONCE RF: 0 testosterone cypionate 100 mg/mL oil 80 mg IM QWEEK RF: 0 chlorthalidone 50 mg tablet 50 mg PO DAILY RF: 0 Incruse Ellipta 62.5 mcg/actuation blister with device 1 inh IH DAILY RF: 0 selenium sulfide 2.5 % lotion 2.5 % TP RF: 0 atorvastatin [Lipitor] 20 mg tablet 20 mg PO DAILY RF: 0 furosemide [Lasix] 20 mg tablet 40 mg PO DAILY PRNRF: 0 aspirin 81 mg Tablet,Delayed Release (Dr/Ec) 81 mg PO DAILY RF: 0 methylphenidate HCl 20 mg tablet 20 mg PO TID RF: 0 isosorbide mononitrate 30 mg tablet extended release 24 hr 30 mg PO DAILY RF: 0 amlodipine 10 mg tablet 10 mg PO DAILY RF: 0 ketoconazole 2 % cream See Rx Instructions .ROUTE .COMPLEX RF: 0 loratadine [Claritin] 10 mg Tablet 10 mg PO DAILY RF: 0 insulin aspart U-100 [Novolog Flexpen U-100 Insulin] 100 unit/mL (3 mL) insulin pen SUBCUT RF: 0 gluc [id number] Mouthwash 1 ea MUCOUS MEMBRANE TID PRNRF: 0 levalbuterol tartrate [Xopenex HFA] 45 mcg/actuation HFA aerosol inhaler 2 puff INHALATION Q6H PRN PRNRF: 0 Basaglar KwikPen U-100 Insulin 100 unit/mL (3 mL) insulin pen See Rx Instructions .ROUTE .COMPLEX RF: 0 Farxiga 5 mg tablet 5 mg PO DAILY RF: 0 Vraylar 4.5 mg capsule 4.5 mg PO HS RF: 0 Discharge Instructions Instructions: COPD (Chronic Obstructive Pulmonary Disease) (DC), Hypoxia (ED) Additional Instructions: Please wear your trilogy unit as directed. When at home you will undergo an overnight oximetry study to evaluate the need for oxygen when using the device. You passed an ambulatory pulse oximetry test here while hospitalized, so do not qualify for oxygen while awake at this time. Please resume your usual medications as previously directed. Nutrition consult for weight management may be helpful as weight loss is s trongly recommended in obesity hypoventilation syndrome, additionally, Bariatric surgery, if covered by your insurance and you are agreeable, would be an appropriate avenue to explore. Stand Alone Forms: Nursing Discharge Form Referrals: Татьяна Koehler PA [Primary Care Provider] - 01/04/20 12:45 pm Activity:: Activity as Tolerated Equipment/Supplies:: No Equipment Needed Diet:: Carb Counting Discharge Orders Discharge Orders: Discharge Order (Routine); Ordered 12/29/19 Ordered By: Consuelo Tracy Other Ambulatory Orders: Basic Metabolic Panel (Routine) Timeframe: [id number] Location: None Selected Ordered By: Consuelo Tracy SaO2 Overnight Study (Outpt) (ONCE) Location: None Selected Ordered By: Consuelo Tracy Discharge Data Discharge Date/Time-TO BE ENTERED AT DEPARTURE: 12/29/19 15:37 DS: Summary Status at Discharge Functional status at discharge: independent ambulation Overall status at discharge: patient is progressing back to baseline Mental Status: mental status grossly normal Speech and Movement: speech and movement normal Mood: irritable mood Affect: normal affect Exam Const General: disheveled and ill appearing (older appearing than stated age) chronically Nutritional Appearance: obese (super morbid) Orientation: alert, awake and oriented x3 HENMT Head: normal to inspection, normocephalic and atraumatic Resp Effort & Inspection: able to speak in complete sentences, no respiratory distress and not tachypneic Auscultation: diminished lung sounds (throughout, no wheezing or rhonchi appreciated) GI Inspection: large pannus and obesity Skin Rashes: rashes noted (fungal bilateral axilla) Neuro General: patient alert, patient awake, patient oriented x3, moves all extremities and no focal motor deficits Psych Mental Status: mental status grossly normal Speech and Movement: speech and movement normal Mood: irritable mood Affect: normal affect DS: Data Vitals/I&O Vitals and I&O: Vital Signs Temperature 36.6 C 12/29/19 08:11 Temperature Source Temporal Artery Scan 12/29/19 08:11 Pulse 81 12/29/19 08:11 Pulse Rhythm Regular 12/29/19 09:04 Pulse 68 12/27/19 18:17 Respiratory Rate 20 12/29/19 08:11 Respiratory Effort 12/29/19 09:04 Respiratory Depth Normal 12/29/19 09:04 Respiratory Pattern Normal 12/29/19 09:04 Blood Pressure 131/89 12/29/19 08:11 Blood Pressure Mean 128 12/27/19 18:17 Blood Pressure Position Sitting 12/27/19 15:25 Pulse Oximetry 95 12/29/19 11:13 Oxygen Delivery Method Room Air 12/29/19 11:13 Oxygen Flow Rate 0 12/29/19 11:13 Fraction of Inspired Oxygen (FIO2) 35 12/28/19 10:07 Pain Level 0 12/29/19 08:11 Comment 12/28/19 09:10 Intake & Output 12/28/19 12/28/19 12/29/19 11:59 23:59 11:59 Intake Total 300 / 300 350 / 350 Balance 300 / 300 350 / 350 Intake: IV 100 / 100 Oral 200 / 200 350 / 350 Other: Urine Color Yellow Yellow Urine Appearance Clear Clear Urine Odor Normal None Comment Patient up to toilet to void, urine collection completed. pt voids independently VOID X 2 IN BR DURING NOC RN did not assess urine Voiding Methods Toilet Toilet Toilet Data Completed and Pending Labs on day of discharge: Labs from last 24 hours 12/29/19 12/29/19 12/28/19 07:25 07:25 15:45 WBC 7.93 RBC 5.58 Hgb 15.3 Hct 48.6 MCV 87.1 MCH 27.4 MCHC 31.5 L RDW 15.2 H Plt Count 327 MPV 10.2 Immature Gran % 0.6 Neutrophils % 69.6 Lymphocytes % 20.9 Monocytes % 5.8 Eosinophils % 2.6 Basophils % 0.5 Nucleated RBC % 0 Absolute Neutrophils 5.51 Absolute Lymphocytes 1.66 Absolute Monocytes 0.46 Absolute Eosinophils 0.21 Absolute Basophils 0.04 Sodium 139 Potassium 3.2 L Chloride 100 Carbon Dioxide 33.5 H Anion Gap 5.5 BUN 14 Creatinine 0.95 Estimated GFR/1.73 m2 >= 60.00 Glucose 113 H Calcium 9.0 Magnesium 2.0 PFSH Medical History Abnormal cardiovascular stress test Back muscle spasm Blind left eye Callus of foot Chronic low back pain Coccyx disorder COPD (chronic obstructive pulmonary disease) Cough Depression Gastroesophageal reflux disease Hyperprolactinemia Hypertension Hypogonadism Impaired fasting glucose Insomnia Leg edema Marital problems Morbid obesity Narcolepsy Neck pain Nocturia Organic impotence Skin lesion of foot Sleep apnea Smoker Social History Smoking/Tobacco Use Status: Current every day Tobacco Type: e-cigarettes Smoking risk assessment performed?: Yes Alcohol Intake: current Alcohol Intake frequency: holidays/special occasions on ly Alcohol type: hard liquor Drug use: Never Substance use type: marijuana
[2019-12-29 14:46] LABS: SARS-CoV-2 RNA Source Nasopharynx
[2019-12-29 14:47] LABS: SARS-CoV-2 RNA Not Detected (NotDetected)
--- NOTE | 2019-12-29 15:47 | PDOC.CMDIS ---
- If Service Date Differs Date of service: 12/29/19 Time of Service: 15:47 LACE Index Scoring Tool - Questions: Length of Stay (in days): 3 Acuity (Admit via E.D.?): Yes Comorbidities: Chronic Pulmonary Disease E.D. Visits: 1 - Answers: Total Score: 9 Risk of Readmission: Low Risk Care Management Discharge Reason for Hospitalization: Acute on Chronic Respiratory Acidosis Discharge Plan: Darvin was expected to discharge today, but his discharge was delayed due to his insurance not approving his Trilogy machine. RT expects that it will be approved, but it is taking longer than anticipated. Darvin was then asked to remain at [facility] where he can use a breathing machine overnight, but he declined, stating that he was going to go home regardless of having the proper machine in place at home. Payton from [facility] will continue to attempt to obtain the Trilogy machine for Darvin, but he is currently leaving against medical advice. CM sent a referral to [facility] for case management in the community. Patient/Family Education Needs: Review discharge instructions, discussion of safety concerning him chosing to leave AMA, discussion of self care needs including ask me three and goals of care.
== END 2019-12-29 15:37 | disposition left against medical advice (07) | DRG 189 ==
LOC: ER 18:54 → MS 18:58
PROVIDERS: Nurse Practitioner Acute Care; Admitting Provider Family Medicine; Emergency Provider Emergency Medicine; PCP Physician Assistant Medical; Visit Provider Family Medicine
DX: J96.20 Acute and chronic respiratory failure, unspecified whether with hypoxia or hypercapnia (principal); E87.2 Acidosis; Z68.44 Body mass index [BMI] 60.0-69.9, adult; E66.2 Morbid (severe) obesity with alveolar hypoventilation; E22.1 Hyperprolactinemia; I10 Essential (primary) hypertension; F32.9 Major depressive disorder, single episode, unspecified; F17.210 Nicotine dependence, cigarettes, uncomplicated; J44.9 Chronic obstructive pulmonary disease, unspecified; G47.419 Narcolepsy without cataplexy; E87.6 Hypokalemia; B37.2 Candidiasis of skin and nail; E11.9 Type 2 diabetes mellitus without complications; R05 Cough; K21.9 Gastro-esophageal reflux disease without esophagitis; M54.2 Cervicalgia; Z79.4 Long term (current) use of insulin; Z91.19 Patient's noncompliance with other medical treatment and regimen
CPT/HCPCS: 36415; 80048; 80053; 80307; 82805; 93005; 94618; 96365; 96366; 97162; 97530; 99222; 99233; 99239; 99285; J1650; U0003; 36600; 71045; 81003; 83735; 83880; 84484; 85025; 85379; 93010; 94660; J3480; J3490

== ENCOUNTER 2020-01-11 10:57 | Emergency (ER) | payer MEDICARE, MEDICAID, SELFPAY ==
[2020-01-11 11:03] VITALS: BP 155/104; PULSE 74; RESP 22; TEMP 35.7; O2SAT 92
--- NOTE | 2020-01-11 11:12 | ED.GENADUL_ITS ---
Discharge Plan Disposition Patient Disposition: HOME Condition: Stable Discharge Details Clinical Impression: Laceration Primary Care Provider: Татьяна Koehler ED Provider: Tika Garner Home Meds and New Rx's Prescriptions: Continued celecoxib [Celebrex] 400 mg capsule 400 mg PO DAILY RF: 0 hydrocodone-acetaminophen 10-325 mg tablet 1 tab PO Q6H PRNRF: 0 diazepam 10 mg tablet 10 mg PO TID PRNRF: 0 Dexilant 60 mg capsule,biphase delayed releas 60 mg PO DAILY RF: 0 escitalopram oxalate [Lexapro] 20 mg tablet 20 mg PO DAILY RF: 0 cabergoline 0.5 mg tablet See Rx Instructions PO ONCE RF: 0 testosterone cypionate 100 mg/mL oil 50 mg IM QWEEK RF: 0 chlorthalidone 50 mg tablet 50 mg PO DAILY RF: 0 Incruse Ellipta 62.5 mcg/actuation blister with device 1 inh IH DAILY RF: 0 atorvastatin [Lipitor] 20 mg tablet 20 mg PO DAILY RF: 0 furosemide [Lasix] 20 mg tablet 40 mg PO DAILY PRNRF: 0 aspirin 81 mg Tablet,Delayed Release (Dr/Ec) 81 mg PO DAILY RF: 0 methylphenidate HCl 20 mg tablet 20 mg PO TID RF: 0 isosorbide mononitrate 30 mg tablet extended release 24 hr 30 mg PO DAILY RF: 0 amlodipine 10 mg tablet 10 mg PO DAILY RF: 0 ketoconazole 2 % cream See Rx Instructions .ROUTE .COMPLEX RF: 0 loratadine [Claritin] 10 mg Tablet 10 mg PO DAILY RF: 0 insulin aspart U-100 [Novolog Flexpen U-100 Insulin] 100 unit/mL (3 mL) insulin pen 4 unit SUBCUT RF: 0 levalbuterol tartrate [Xopenex HFA] 45 mcg/actuation HFA aerosol inhaler 2 puff INHALATION Q6H PRN PRNRF: 0 Basaglar KwikPen U-100 Insulin 100 unit/mL (3 mL) insulin pen See Rx Instructions .ROUTE .COMPLEX RF: 0 Farxiga 5 mg tablet 5 mg PO DAILY RF: 0 Vraylar 4.5 mg capsule 4.5 mg PO HS RF: 0 Discharge Instructions Instructions: Laceration (ED) Additional Instructions: Have sutures removed in 7-10 days. 3 sutures were placed. He may return here sutures removed or PCP. Follow up with primary care provider in 3-5 days. R eturn to ED sooner if any worsening or concerns. Increase oral fluids. Please take Tylenol or Ibuprofen with food every 4-6 hours as needed for pain and swelling. Return to the ED for any signs of infection. Increased redness, swelling, drainage, pain or any concerns. No soaking, may wash under running soap and water after 12 to 24 hours. Keep clean and dry. Referrals: Татьяна Koehler PA [Primary Care Provider] - Medical Decision Making Anesthetized with 1% lidocaine with epi, patient tolerated well. Laceration was repaired with 3 simple interrupted four-point 0 Ethilon sutures wound was well approximated. Discussed with patient home care and have sutures removed in 7 days, verbalized understanding. Discussed strict return instructions including signs of infection when to return. HPI General Mode of arrival: ambulatory . Date/Time Provider Initiated Documentation: 01/11/20 11:05 . Limitations to Documentation: no limitations . Information obtained by: patient . HPI Narrative: 49-year-old male presents to the ER with right inner forearm laceration. Patient states that around 930 he accidentally punctured his right forearm with a knife. There is a 2 cm laceration noted to his right inner forearm. Bleeding is controlled at this time. He has full range of motion noted to his arm distal radial pulses and circulation sensation and movement intact. Last tetanus shot was 2011. Related Data Home Medications Medication Instructions Recorded Confirmed celecoxib 400 mg capsule 400 mg PO DAILY 01/11/18 01/11/20 Lasix 20 mg tablet 40 mg PO DAILY PRN tab-cap NS 08/18/18 01/11/20 atorvastatin 20 mg tablet 20 mg PO DAILY 08/18/18 01/11/20 cabergoline 0.5 mg tablet See Rx Instructions PO ONCE 08/18/18 01/11/20 chlorthalidone 50 mg tablet 50 mg PO DAILY 08/18/18 01/11/20 dexlansoprazole 60 mg 60 mg PO DAILY 08/18/18 01/11/20 capsule,biphase delayed release diazepam 10 mg tablet 10 mg PO TID PRN tab 08/18/18 01/11/20 escitalopram oxalate 20 mg tablet 20 mg PO DAILY 08/18/18 01/11/20 hydrocodone 10 mg-acetaminophen 1 tab PO Q6H PRN 08/18/18 01/11/20 325 mg tablet testosterone cypionate 100 mg/mL 50 mg IM QWEEK ml 08/18/18 01/11/20 intramuscular oil umeclidinium 62.5 mcg/actuation 1 inh IH DAILY 08/18/18 01/11/20 blister powder for inhalation aspirin 81 mg PO DAILY 10/08/18 01/11/20 Basaglar KwikPen U-100 Insulin See Rx Instructions .ROUTE .COMPLEX 12/27/19 01/11/20 Farxiga 5 mg PO DAILY 12/27/19 01/11/20 Vraylar 4.5 mg PO HS 12/27/19 01/11/20 amlodipine 10 mg PO DAILY 12/27/19 01/11/20 insulin aspart U-100 [Novolog 4 unit SUBCUT 12/27/19 Flexpen U-100 Insulin] isosorbide mononitrate 30 mg PO DAILY 12/27/19 01/11/20 ketoconazole See Rx Instructions .ROUTE .COMPLEX 12/27/19 01/11/20 levalbuterol tartrate [Xopenex HFA] 2 puff INHALATION Q6H PRN PRN 12/27/19 01/11/20 loratadine [Claritin] 10 mg PO DAILY 12/27/19 01/11/20 methylphenidate HCl 20 mg PO TID 12/27/19 01/11/20 Allergies Allergy/AdvReac Type Severity Reaction Status Date / Time ibuprofen AdvReac Intermediate GI Bleeding Unverified 12/27/19 15:33 General Stated Complaint: Laceration KIMBERLEE: 4 Review of Systems Narrative: Constitutional: Negative for weight loss, alert and oriented, well groomed, obese body habitus, appears comfortable. HEENT: Denies trauma, headaches, blurry vision, nasal discharge, sore throat, trouble swallowing. Neuro: Denies dizziness, blurry vision, weakness, syncope, headache or facial numbness. Hematologic: Denies easy bruising, intolerance to heat or cold, hair loss. PFSH Medical History Abnormal cardiovascular stress test Back muscle spasm Blind left eye Callus of foot Chronic low back pain Coccyx disorder COPD (chronic obstructive pulmonary disease) Cough Depression Gastroesophageal reflux disease Hyperprolactinemia Hypertension Hypogonadism Impaired fasting glucose Insomnia Leg edema Marital problems Morbid obesity Narcolepsy Neck pain Nocturia Organic impotence Skin lesion of foot Sleep apnea Smoker Social History Smoking/Tobacco Use Status: Current every day Tobacco Type: e-cigarettes Smoking risk assessment performed?: Yes Alcohol Intake: current Alcohol Intake frequency: holidays/special occasions only Alcohol type: hard liquor Drug use: Never Substance use type: marijuana Do you feel safe at home: Yes Do you feel safe in your relationship?: Yes Exam Skin Trauma: laceration (2 cm laceration) right anterior forearm linear, puncture, involves subcutaneous tissue, motor nerve function intact and sensation intact Course Vital Signs Vital signs: Vital Signs Temperature 35.7 C L 01/11/20 11:03 Pulse 74 01/11/20 11:03 Respiratory Rate 22 01/11/20 11:03 Blood Pressure 155/104 H 01/11/20 11:03 Pulse Oximetry 92 01/11/20 11:03 Temperature 35.7 C L 01/11/20 11:03 Temperature Source Temporal Artery Scan 01/11/20 11:03 Pulse 74 01/11/20 11:03 Respiratory Rate 22 01/11/20 11:03 Respiratory Effort Short of Breath 01/11/20 11:06 Blood Pressure 155/104 H 01/11/20 11:03 Blood Pressure Position Sitting 01/11/20 11:03 Pulse Oximetry 92 01/11/20 11:03 Oxygen Delivery Method Room Air 01/11/20 11:03 Oxygen Flow Rate 0 01/11/20 11:03 Pain Level 8 01/11/20 11:03 Procedures Laceration Laceration 1: Site: upper extremity Side (If applicable): right Size (cm): 2 Description: linear Depth: simple, single layer Local Anesthetic: Lidocaine 1% and with Epi Amount of anesthesia used (mL): 2.5 Pre-repair: wound explored, irrigated extensively and deep structures intact Skin layer closed with: nylon Size (cm): 4-0 Number of sutures: 3 Technique: simple, interrupted
== END 2020-01-11 12:04 | disposition home or self-care (01) ==
PROVIDERS: Emergency Provider Registered Nurse Emergency; PCP Physician Assistant Medical
DX: S51.811A Laceration without foreign body of right forearm, initial encounter (principal); W26.0XXA Contact with knife, initial encounter
CPT/HCPCS: 12001

== ENCOUNTER 2020-01-18 12:18 | Outpatient (REF) | payer MEDICARE, MEDICAID, SELFPAY ==
[2020-01-18 21:18] LABS: ALT 89 U/L (16-63); AST 51 U/L (15-37); Albumin 3.7 g/dL (3.4-5.0); Alkaline Phosphatase 112 U/L (46-116); Anion Gap 3.7 mmol/L (3-11); BUN 12 mg/dL (7-18); Bilirubin, Total 0.9 mg/dL (0.2-1.0); CO2 35.3 mmol/L (21.0-32.0); CREATININE 0.88 mg/dL (0.70-1.30); Calcium 8.8 mg/dL (8.5-10.1); Calculated LDL 95 mg/dL (<100); Chloride 102 mmol/L (98-107); Cholesterol 142 mg/dL (<200); Glucose 101 mg/dL (74-106); HDL Cholesterol 30 mg/dL (40-60); Potassium 3.4 mmol/L (3.5-5.1); Sodium 141 mmol/L (136-145); Triglyceride 85 mg/dL (<150)
== END 2020-01-18 12:38 ==
LOC: NCHCN 12:18
PROVIDERS: PCP Physician Assistant Medical; Visit Provider Physician Assistant Medical
DX: I10 Essential (primary) hypertension (principal); E11.9 Type 2 diabetes mellitus without complications
CPT/HCPCS: 80053; 80061

== ENCOUNTER 2020-05-25 12:56 | Outpatient (REF) | payer MEDICARE, MEDICAID, SELFPAY ==
[2020-05-25 15:31] LABS: Abs Immature Grans 0.07 10^3/uL (0.0-0.06); Absolute Basophil Count 0.06 10^3/uL (0.0-0.2); Absolute Lymphocyte Count 1.72 10^3/uL (1.2-3.4); Absolute Monocyte Count 0.66 10^3/uL (0.1-0.8); Basophils % 0.5; Eosinophils % 1.9; HCT 50.4 % (40.0-50.0); HGB 16.1 g/dL (13.5-17.5); Immature Grans % 0.6; Lymphocytes % 14.5; MCHC 31.9 % (32.0-36.0); MCV 84.4 fL (80-95); MPV 10.7 fL (8.0-11.0); Monocytes % 5.6; Neutrophils % 76.9; Nucleated RBC 0 %; Platelet Count 461 10^3/uL (130-400); RBC 5.97 10^6/uL (4.36-5.78); RDW 15.8 % (11.8-14.1); RDW-SD 48.7 fL; WBC 11.83 10^3/uL (4.4-10.8)
[2020-05-25 15:36] LABS: Absolute Eosinophil Count 0.22 10^3/uL (0.0-0.7)
[2020-05-25 15:56] LABS: ALT 84 U/L (16-63); AST 48 U/L (15-37); Albumin 3.7 g/dL (3.4-5.0); Alkaline Phosphatase 140 U/L (46-116); Anion Gap 8.5 mmol/L (3-11); BUN 9 mg/dL (7-18); Bilirubin, Total 0.7 mg/dL (0.2-1.0); CO2 29.5 mmol/L (21.0-32.0); CREATININE 0.9 mg/dL (0.70-1.30); Chloride 101 mmol/L (98-107); Glucose 122 mg/dL (74-106); NT-proBNP 12 pg/mL (<300); Potassium 3.7 mmol/L (3.5-5.1); Sodium 139 mmol/L (136-145); Total Protein 7.7 g/dL (6.4-8.2)
== END 2020-05-25 12:57 | disposition home or self-care (01) ==
LOC: NCHCN 12:56
PROVIDERS: PCP Physician Assistant Medical; Visit Provider Physician Assistant Medical
DX: I50.9 Heart failure, unspecified (principal)
CPT/HCPCS: 80053; 83880; 85025

== ENCOUNTER 2020-06-06 01:58 | Outpatient (CLI) | payer MEDICARE, MEDICAID, SELFPAY ==
[2020-06-06] MEDS: Normal Saline - Diluent 50 ML VIAL IV (14:51)
--- NOTE | 2020-06-06 14:53 | DI.CT_ITS ---
EXAM: CT CHEST W CLINICAL HISTORY: COPD,J44.9HYPOXIA,R09.02,LEUKOCYTOSIS,D72.829. TECHNIQUE: Multi planar reconstructions were performed. CONTRAST MATERIAL: Omnipaque 350; 75 cc COMPARISON: CR,XR XR PORTABLE CHEST AP from 12/27/2019 FINDINGS: CHEST: LUNGS: Lungs are clear. There are no pulmonary infiltrates, ominous pulmonary nodules, or pleural ef fusions. No significant focal findings in the trachea and mainstem bronchi. There is no bronchiecta sis. MEDIASTINUM: There is no hilar nor mediastinal adenopathy. Visualized thyroid unremarkable. CARDIAC: Heart size is normal. There is no pericardial effusion.Caliber of the thoracic aorta is wit hin normal limits. VISUALIZED UPPER ABDOMEN:There is a nodule in the medial limb of the right adrenal gland which measur es 2 x 1.4 cm. The opposite-left adrenal gland appears unremarkable. Multiple gallstones are noted in the gallbladder lumen. No gallbladder wall edema. Hepatic steatosis is noted. OSSEOUS: No significant osseous lesions.. IMPRESSION: 1. Lungs are clear. No pleural effusions. No intrathoracic adenopathy. 2. There is 2 centimeter nodule in the right adrenal gland. Possibly incidental adenoma. 3. Cholelithiasis incidentally noted as well as hepatic steatosis RADIATION DOSE DELIVERED: 1,195.84mGy.cm Total DLP DATA REPOSITORY: All CT scans at this facility are submitted to the National Radiology Data Registry (NRDR) Dose Index Registry (DIR) with the [employer] ([employer]). RADIATION OPTIMIZATION: All CT scans at this facility use at least one of these dose optimization te chniques: automated exposure control; mA and/or kV adjustment per patient size (includes targeted exa ms where dose is matched to clinical indication); or iterative reconstruction.
== END 2020-06-06 02:18 ==
PROVIDERS: PCP Physician Assistant Medical; Visit Provider Physician Assistant Medical
DX: D72.829 Elevated white blood cell count, unspecified (principal); R09.02 Hypoxemia; J44.9 Chronic obstructive pulmonary disease, unspecified; K80.20 Calculus of gallbladder without cholecystitis without obstruction; K76.0 Fatty (change of) liver, not elsewhere classified; D35.01 Benign neoplasm of right adrenal gland
CPT/HCPCS: 71260

== ENCOUNTER 2020-08-20 16:44 | Outpatient (REF) | payer MEDICARE, MEDICAID, SELFPAY ==
[2020-08-25 13:00] LABS: Methylphenidate 1334 ng/mL (Cutoff: 10); Ritalinic Acid 60209 ng/mL (Cutoff: 50)
== END 2020-08-20 16:45 | disposition home or self-care (01) ==
LOC: NCHCN 16:44
PROVIDERS: PCP Physician Assistant Medical; Visit Provider Physician Assistant Medical
DX: G89.29 Other chronic pain (principal); Z79.899 Other long term (current) drug therapy
CPT/HCPCS: 80360

== ENCOUNTER 2020-11-28 17:04 | Outpatient (REF) | payer MEDICARE, MEDICAID, SELFPAY ==
[2020-11-28 21:29] LABS: Abs Immature Grans 0.07 10^3/uL (0.0-0.06); Absolute Basophil Count 0.04 10^3/uL (0.0-0.2); Absolute Eosinophil Count 0.08 10^3/uL (0.0-0.7); Absolute Monocyte Count 0.51 10^3/uL (0.1-0.8); Absolute Neutrophil Count 7.83 10^3/uL (1.2-6.7); Basophils % 0.4; Eosinophils % 0.8; HCT 46.6 % (40.0-50.0); HGB 14.8 g/dL (13.5-17.5); Immature Grans % 0.7; MCH 27.1 pg (27.0-33.0); MCHC 31.8 % (32.0-36.0); MCV 85.2 fL (80-95); MPV 10.4 fL (8.0-11.0); Monocytes % 5.1; Nucleated RBC 0 %; Platelet Count 605 10^3/uL (130-400); RBC 5.47 10^6/uL (4.36-5.78); RDW 15.5 % (11.8-14.1); RDW-SD 48.6 fL; WBC 10.03 10^3/uL (4.4-10.8)
[2020-11-28 21:56] LABS: Hemoglobin A1C 5.7 % (<5.7)
[2020-11-29 01:31] LABS: Vitamin D 25 Total 16.4 ng/mL (30-100)
[2020-11-29 07:05] LABS: ALT 45 U/L (16-63); AST 23 U/L (15-37); Albumin 3.9 g/dL (3.4-5.0); Alkaline Phosphatase 90 U/L (46-116); Anion Gap 10.5 mmol/L (3-11); BUN 10 mg/dL (7-18); Bilirubin, Total 0.9 mg/dL (0.2-1.0); CO2 24.5 mmol/L (21.0-32.0); CREATININE 0.9 mg/dL (0.70-1.30); Calcium 8.9 mg/dL (8.5-10.1); Calculated LDL 76 mg/dL (<100); Chloride 104 mmol/L (98-107); Cholesterol 124 mg/dL (<200); Glucose 95 mg/dL (74-106); HDL Cholesterol 30 mg/dL (40-60); Potassium 4.3 mmol/L (3.5-5.1); Sodium 139 mmol/L (136-145); Total Protein 7.1 g/dL (6.4-8.2); Triglyceride 90 mg/dL (<150)
[2020-11-29 08:03] LABS: FREE T4 1.09 ng/dL (0.76-1.46)
[2020-11-29 19:40] LABS: Prolactin 15.8 ng/mL (2.1-17.7)
[2020-11-30 12:10] LABS: COVID-19 RT-PCR UVMMC Result Negative (Negative)
== END 2020-11-28 17:05 | disposition home or self-care (01) ==
LOC: NCHCN 17:04
PROVIDERS: PCP Physician Assistant Medical; Visit Provider Physician Assistant Medical
DX: Z20.822 Contact with and (suspected) exposure to COVID-19 (principal); J06.9 Acute upper respiratory infection, unspecified; E11.9 Type 2 diabetes mellitus without complications; E22.1 Hyperprolactinemia; E29.1 Testicular hypofunction
CPT/HCPCS: 80053; 80061; 82306; U0003; 83036; 84146; 84439; 84443; 85025

== ENCOUNTER 2020-12-03 10:47 | Outpatient (REF) | payer MEDICARE, MEDICAID, SELFPAY | END 2020-12-03 10:48 | disposition home or self-care (01) | LOC: NCHCN 10:47 | PROVIDERS: PCP Physician Assistant Medical; Visit Provider Physician Assistant Medical | DX: R69 Illness, unspecified (principal) | CPT/HCPCS: 84402; 84403 ==

== ENCOUNTER 2020-12-03 11:17 | Observation (INO) | payer MEDICARE, MEDICAID, SELFPAY ==
[2020-12-03] VITALS (67 sets, daily range): BP systolic 113–172; BP diastolic 64–105; PULSE 72–112; RESP 8–44; TEMP 36–36.6; O2SAT 84–98
--- NOTE | 2020-12-03 11:15 | RT.EKG_ITS ---
APPROVED REPORT Exam: Resting ECG Reason for Exam: sob Patient Location: E HR:80 bpm ECG Measurements Heart Rate 80 AXIS TN 157 P 33 QRSd 95 QRS 72 QT 373 T 13 QTc 431 Conclusion Sinus rhythm...normal P axis, V-rate 60- 99 Low voltage, precordial leads...precordial leads <1.0mV Consider anterior infarct...Q >30mS in V2-V5 sinus rhythm at 80, normal axis, poor R wave progression, no STEMI, nondiagnostic EKG
--- NOTE | 2020-12-03 11:34 | W.ED.GENAD ---
Discharge Plan Disposition Patient Disposition: [facility] INPATIENT Condition: Fair Discharge Details Clinical Impression: Dyspnea, Morbid obesity Admit Date/Time: 12/03/20 18:25 Admit Provider: Neil Pineda Attending Provider: Neil Pineda Primary Care Provider: Татьяна Koehler ED Provider: Savannah Chawla Discharge Data Discharge Date/Time-TO BE ENTERED AT DEPARTURE: 12/03/20 19:27 Medical Decision Making <Brooklyn Donahue MD - Last Filed: 12/04/20 09:11> Darvin Sanz is a 50-year-old man with a history of hypertension, GERD, obesity hypoventilation syndrome, COPD who presented to the emergency department with shortness of breath. On exam patient is somewhat chronically ill-appearing, tachypneic 20 to 30 breaths/min. Lungs are clear to auscultation. There is no lower extremity edema. Sats 88 to 89% on room air, improved to 95% with 2 L nasal cannula O2. Concern for COPD exacerbation, Covid, pneumonia, pulmonary embolism, possible CHF, coronary syndrome, metabolic process. Exam/history at this time not consistent with acute aortic process, sepsis. EKG obtained and nondiagnostic. Plan for IV placement, telemetry, DuoNeb, screening labs, UA, chest x-ray. Will monitor and reassess. Patient reassessed after DuoNeb, reports no change. When asked how he is doing patient states, lousy. I feel like crap. Patient remains tachypneic, lungs clear to auscultation. Labs reviewed, WBC 14, hemoglobin 15, thrombocytosis with platelet count 754, creatinine 1.1, anion gap 0.8, VBG pH 7.38, BNP normal, D-dimer normal, troponin normal. Chest x-ray negative for acute process. Unclear etiology of tachypnea at this time. Will repeat DuoNeb, plan for CT chest for further evaluation given negative work-up at this point. I did discuss patient with hospitalist for admission, who requested CT chest to be completed prior to admission and also requested pulmonary consult; consultation ordered. CT negative for acute process. Pulmonology saw patient, unclear etiology of tachypnea from her standpoint, although she does state that patient is at high risk for morbidity and mortality given tachypnea change from normal and unclear etiology. Plan for ambulatory pulse ox, possible admission. Patient signed out to Dr. Chawla with ambulatory pulse ox, reassessment pending. Medical Records Medical records reviewed: Yes I reviewed the patient's medical records. Imaging Data Radiologic Study: Attestation: I personally reviewed and interpreted this imaging study as follows: Radiologist's impression: EXAM: CT CHEST PE CTA CLINICAL HISTORY: SOB. TECHNIQUE: Imaging Protocol: Axial CT angiography was performed with multi-slice acquisition and multi-planar and/or 3D reconstructions. CONTRAST MATERIAL: Intravenous: Omnipaque 350 Contrast volume:structured data in ml COMPARISON: CT CT CHEST W from 06/06/2020 FINDINGS: CT angiography of the chest was performed with intravenous infusion of 100 cc of Omnipaque 350. Examination is technically limited by the patient's. The lungs are clear. No pleural effusion. Tracheobronchial tree appears intact. No evidence of pulmonary embolic disease please note subsegmental pulmonary vessels are not well evaluated due to artifact from the patient's size.. Thoracic aorta is of normal diameter, no thoracic aortic aneurysm or dissection, major branch vessels appear intact. No mediastinal or hilar adenopathy. Images obtained through the upper abdomen show unremarkable appearance of the visualized portions of the liver and spleen. IMPRESSION: Negative CT angiogram of the chest. No evidence of pulmonary embolic disease. EXAM: XR PORTABLE CHEST AP CLINICAL HISTORY: SOB. TECHNIQUE: 2D digital imaging was performed. COMPARISON: CR,XR XR PORTABLE CHEST AP from 12/27/2019 FINDINGS: LUNGS: Clear. No pleural abnormality seen. HEART: Normal. MEDIASTINUM: Normal. OTHER FINDINGS: None. IMPRESSION: No acute pulmonary findings. Lab Data Lab results reviewed: Yes I reviewed the patient's lab results. Labs: 12/03/20 13:40 Blood Blood Culture - Pending 12/03/20 12:15 Blood Blood Culture - Pending Laboratory Tests Range/Units 12/03/20 12/03/20 12/03/20 11:35 12:15 12:15 WBC (4.4-10.8) 10^3/uL 14.03 H RBC (4.36-5.78) 10^6/uL 5.80 H Hgb (13.5-17.5) g/dL 15.7 Hct (40.0-50.0) % 49.7 MCV (80-95) fL 85.7 MCH (27.0-33.0) pg 27.1 MCHC (32.0-36.0) % 31.6 L RDW (11.8-14.1) % 16.0 H Plt Count (130-400) 10^3/uL 754 H* MPV (8.0-11.0) fL 9.7 Immature Gran % 1.0 Neutrophils % 84.7 Lymphocytes % 9.1 Monocytes % 5.0 Eosinophils % 0.0 Basophils % 0.2 Nucleated RBC % % 0 Absolute Neutrophils (1.2-6.7) 10^3/uL 11.88 H Absolute Lymphocytes (1.2-3.4) 10^3/uL 1.28 Absolute Monocytes (0.1-0.8) 10^3/uL 0.70 Absolute Eosinophils (0.0-0.7) 10^3/uL 0.00 Absolute Basophils (0.0-0.2) 10^3/uL 0.03 D-Dimer (<500) ng/mlFEU VBG pH (7.31-7.41) VBG pCO2 (41-51) mmHg VBG pO2 mmHg VBG HCO3 (23-28) mmol/L VBG Total CO2 (24-29) mmol/L VBG O2 Saturation % VBG Base Excess (-2-3) mmol/L VBG Lactate (0.6-1.4) mmol/L Sodium (136-145) mmol/L 135 L Potassium (3.5-5.1) mmol/L 4.1 Chloride (98-107) mmol/L 99 Carbon Dioxide (21.0-32.0) mmol/L 29.2 Anion Gap (3-11) mmol/L 6.8 BUN (7-18) mg/dL 21 H Creatinine (0.70-1.30) mg/dL 1.1 Estimated GFR/1.73 m2 (mL/min/1.73m2) >= 60.00 Glucose (74-106) mg/dL 112 H Calcium (8.5-10.1) mg/dL 9.2 Total Bilirubin (0.2-1.0) mg/dL 0.9 AST (15-37) U/L 20 ALT (16-63) U/L 51 Alkaline Phosphatase (46-116) U/L 83 Troponin I (<0.06) ng/mL < 0.05 NT-Pro-B Natriuret Pep (<300) pg/mL Total Protein (6.4-8.2) g/dL 8.2 Albumin (3.4-5.0) g/dL 4.1 COVID-19 Source Nasal/Nares SARS-CoV-2 (PCR) (Negative) Negative Range/Units 12/03/20 12/03/20 12/03/20 12:15 12:15 12:15 WBC (4.4-10.8) 10^3/uL RBC (4.36-5.78) 10^6/uL Hgb (13.5-17.5) g/dL Hct (40.0-50.0) % MCV (80-95) fL MCH (27.0-33.0) pg MCHC (32.0-36.0) % RDW (11.8-14.1) % Plt Count (130-400) 10^3/uL MPV (8.0-11.0) fL Immature Gran % Neutrophils % Lymphocytes % Monocytes % Eosinophils % Basophils % Nucleated RBC % % Absolute Neutrophils (1.2-6.7) 10^3/uL Absolute Lymphocytes (1.2-3.4) 10^3/uL Absolute Monocytes (0.1-0.8) 10^3/uL Absolute Eosinophils (0.0-0.7) 10^3/uL Absolute Basophils (0.0-0.2) 10^3/uL D-Dimer (<500) ng/mlFEU 191 VBG pH (7.31-7.41) VBG pCO2 (41-51) mmHg VBG pO2 mmHg VBG HCO3 (23-28) mmol/L VBG Total CO2 (24-29) mmol/L VBG O2 Saturation % VBG Base Excess (-2-3) mmol/L VBG Lactate (0.6-1.4) mmol/L 1.2 Sodium (136-145) mmol/L Potassium (3.5-5.1) mmol/L Chloride (98-107) mmol/L Carbon Dioxide (21.0-32.0) mmol/L Anion Gap (3-11) mmol/L BUN (7-18) mg/dL Creatinine (0.70-1.30) mg/dL Estimated GFR/1.73 m2 (mL/min/1.73m2) Glucose (74-106) mg/dL Calcium (8.5-10.1) mg/dL Total Bilirubin (0.2-1.0) mg/dL AST (15-37) U/L ALT (16-63) U/L Alkaline Phosphatase (46-116) U/L Troponin I (<0.06) ng/mL NT-Pro-B Natriuret Pep (<300) pg/mL 25 Total Protein (6.4-8.2) g/dL Albumin (3.4-5.0) g/dL COVID-19 Source SARS-CoV-2 (PCR) (Negative) Range/Units 12/03/20 12/03/20 13:52 15:15 WBC (4.4-10.8) 10^3/uL RBC (4.36-5.78) 10^6/uL Hgb (13.5-17.5) g/dL Hct (40.0-50.0) % MCV (80-95) fL MCH (27.0-33.0) pg MCHC (32.0-36.0) % RDW (11.8-14.1) % Plt Count (130-400) 10^3/uL MPV (8.0-11.0) fL Immature Gran % Neutrophils % Lymphocytes % Monocytes % Eosinophils % Basophils % Nucleated RBC % % Absolute Neutrophils (1.2-6.7) 10^3/uL Absolute Lymphocytes (1.2-3.4) 10^3/uL Absolute Monocytes (0.1-0.8) 10^3/uL Absolute Eosinophils (0.0-0.7) 10^3/uL Absolute Basophils (0.0-0.2) 10^3/uL D-Dimer (<500) ng/mlFEU VBG pH (7.31-7.41) 7.38 VBG pCO2 (41-51) mmHg 47 VBG pO2 mmHg 38 VBG HCO3 (23-28) mmol/L 28 VBG Total CO2 (24-29) mmol/L 24 VBG O2 Saturation % 71 VBG Base Excess (-2-3) mmol/L 3 VBG Lactate (0.6-1.4) mmol/L Sodium (136-145) mmol/L Potassium (3.5-5.1) mmol/L Chloride (98-107) mmol/L Carbon Dioxide (21.0-32.0) mmol/L Anion Gap (3-11) mmol/L BUN (7-18) mg/dL Creatinine (0.70-1.30) mg/dL Estimated GFR/1.73 m2 (mL/min/1.73m2) Glucose (74-106) mg/dL Calcium (8.5-10.1) mg/dL Total Bilirubin (0.2-1.0) mg/dL AST (15-37) U/L ALT (16-63) U/L Alkaline Phosphatase (46-116) U/L Troponin I (<0.06) ng/mL < 0.05 NT-Pro-B Natriuret Pep (<300) pg/mL Total Protein (6.4-8.2) g/dL Albumin (3.4-5.0) g/dL COVID-19 Source SARS-CoV-2 (PCR) (Negative) ECG Data Attestation: I personally reviewed and interpreted this ECG (s) as follows: Interpretation: EKG shows sinus rhythm at 80, normal axis, poor R wave progression, no STEMI, nondiagnostic EKG Repeat EKG 15: 22 shows sinus rhythm at 89, normal axis, no major change from prior, no STEMI, nondiagnostic EKG no STEMI <Savannah Chawla DO - Last Filed: 12/05/20 10:20> 1630 --patient became significantly tachypneic into the 40s with heart rate into the low 100s when ambulatory. O2 saturation did not drop significantly while ambulatory, stayed into the low to mid 90s. Patient is complaining of significant dyspnea, worse with exertion and does not feel comfortable going home. Considering patient's comorbidities and his consistent complaint with dyspnea, tachypnea, will admit for further observation overnight. Case discussed with hospitalist who accepts patient for admission. Medical Records Medical records reviewed: Yes I reviewed the patient's medical records. HPI <Brooklyn Donahue MD - Last Filed: 12/04/20 09:11> General Mode of arrival: ambulatory. Date/Time Provider Initiated Documentation: 12/03/20 11:20. Limitations to Documentation: no limitations. Information obtained by: patient, RN notes reviewed and old records reviewed. HPI Narrative: Darvin Sanz is a 50-year-old man with a history of hypertension GERD, obesity hypoventilation syndrome, COPD presenting to emergency department shortness of breath. Patient reports that he has had shortness of breath for approximately 2 weeks. He reports that 6 days ago he saw his PCP for this, who started him on prednisone and doxycycline for URI in setting of COPD. Patient reports that he has had no change in symptoms despite being compliant with these medications. Is still taking doxycycline, finished his prednisone. Patient reports that he feels short of breath at rest and also with exertion and has difficulty walking about his house. Patient reports that he typically sleeps lying flat in bed with 2 pillows with his BiPAP machine, this has not changed since onset of symptoms. Patient reports that he has used his albuterol inhaler occasionally without much improvement in shortness of breath. Patient states that he has a sensation of chest tightness since yesterday morning that has been constant since onset. He denies any other pain. Patient reports that chest tightness feels like a band around his chest and is not localized to one area. He reports that he did have chest pain yesterday for 3 hours that is now resolved. He denies fevers, cough, vomiting, diarrhea, numbness, weakness. Related Data Home Medications Medication Instructions Recorded Confirmed celecoxib 400 mg capsule 400 mg PO DAILY 01/11/18 12/03/20 Lasix 20 mg tablet 40 mg PO DAILY PRN tab-cap NS 08/18/18 12/03/20 atorvastatin 20 mg tablet 20 mg PO DAILY 08/18/18 12/03/20 cabergoline 0.5 mg tablet See Rx Instructions PO ONCE 08/18/18 12/03/20 chlorthalidone 50 mg tablet 50 mg PO DAILY 08/18/18 12/03/20 dexlansoprazole 60 mg 60 mg PO DAILY 08/18/18 12/03/20 capsule,biphase delayed release hydrocodone 10 mg-acetaminophen 1 tab PO Q6H PRN 08/18/18 12/03/20 325 mg tablet testosterone cypionate 100 mg/mL 50 mg IM QWEEK ml 08/18/18 12/03/20 intramuscular oil umeclidinium 62.5 mcg/actuation 1 inh IH DAILY 08/18/18 12/03/20 blister powder for inhalation aspirin 81 mg PO DAILY 10/08/18 12/03/20 Farxiga 5 mg PO DAILY 12/27/19 12/03/20 amlodipine 10 mg PO DAILY 12/27/19 12/03/20 isosorbide mononitrate 30 mg PO DAILY 12/27/19 12/03/20 levalbuterol tartrate [Xopenex HFA] 2 puff INHALATION Q6H PRN PRN 12/27/19 12/03/20 loratadine [Claritin] 10 mg PO DAILY 12/27/19 12/03/20 methylphenidate HCl 20 mg PO TID 12/27/19 12/03/20 Basaglar KwikPen U-100 Insulin 22 unit SUBCUT DAILY 12/03/20 12/03/20 Narcan 4 mg INTRANASAL Q2-3M PRN 12/03/20 12/03/20 Ozempic 1 mg SUBCUT Q7D 12/03/20 12/03/20 Vraylar 6 mg PO DAILY 12/03/20 12/03/20 cyclobenzaprine 10 mg PO HS PRN PRN 12/03/20 12/03/20 duloxetine 30 mg PO DAILY 12/03/20 12/03/20 Allergies Allergy/AdvReac Type Severity Reaction Status Date / Time ibuprofen AdvReac Intermediate GI Bleeding Unverified 12/03/20 11:31 General Stated Complaint: SOB KIMBERLEE: 3 Review of Systems <Brooklyn Donahue MD - Last Filed: 12/04/20 09:11> Narrative: Many but constitutional: denies fevers Eyes: denies eye pain ENT: denies ear pain, dental pain, sore throat Cardiovascular: denies edema, reports chest pain yesterday now resolved Respiratory: denies cough, reports shortness of breath GI: denies abdominal pain, vomiting, diarrhea : denies flank pain MSK: denies back pain, neck pain, arthralgias, myalgias Skin: denies rash Neuro: denies headaches, numbness, weakness PFSH <Brooklyn Donahue MD - Last Filed: 12/04/20 09:11> Medical History Abnormal cardiovascular stress test Back muscle spasm Blind left eye Callus of foot Chronic low back pain Coccyx disorder COPD (chronic obstructive pulmonary disease) Cough Depression Gastroesophageal reflux disease Hyperprolactinemia Hypertension Hypogonadism Impaired fasting glucose Insomnia Leg edema Marital problems Morbid obesity Narcolepsy Neck pain Nocturia Organic impotence Skin lesion of foot Sleep apnea Smoker Social History Smoking/Tobacco Use Status: Current every day Tobacco Type: e-cigarettes Smoking risk assessment performed?: Yes Alcohol Intake: current Alcohol Intake frequency: holidays/special occasions only Alcohol type: hard liquor Drug use: Occasionally Substance use type: marijuana Details: About once a month, used last a couple weeks ago Do you feel safe at home: Yes Do you feel safe in your relationship?: Yes Exam <Brooklyn Donahue MD - Last Filed: 12/04/20 09:11> Narrative Exam Narrative: Constitutional: Somewhat chronically ill appearing, pleasant, conversing normally HENT: head atraumatic/normocephalic/normal inspection, mucous membranes moist Eyes: conjunctiva normal, sclera normal, pupil 3mm, blind left eye Neck: no stridor, normal ROM, trachea midline Chest: normal inspection Resp: Increased work of breathing, patient tachypneic 20-30, LCTAB Cardio: normal rate, normal rhythm, no murmur appreciated GI: abdomen soft, non-tender, non-distended Back: normal inspection, no rash Skin: warm, dry, normal color, no rash Neuro: alert, not altered, grossly non-focal, normal tone Ext: no edema, mild tenderness to palpation right posterior calf Psych: normal mood, normal affect, normal behavior Course <Brooklyn Donahue MD - Last Filed: 12/04/20 09:11> Vital Signs Vital signs: Vital Signs Temperature 36.6 C 12/03/20 11:26 Pulse 85 12/03/20 11:26 Respiratory Rate 18 12/03/20 11:26 Blood Pressure 148/88 H 12/03/20 11:26 Pulse Oximetry 95 12/03/20 11:26 Temperature 36.6 C 12/03/20 11:26 Temperature Source Oral 12/03/20 11:26 Pulse 85 12/03/20 11:26 Respiratory Rate 18 12/03/20 11:26 Blood Pressure 148/88 H 12/03/20 11:26 Pulse Oximetry 95 12/03/20 11:26 Oxygen Delivery Method Room Air 12/03/20 11:26 Oxygen Flow Rate 0 12/03/20 11:26 Pain Level 6 12/03/20 11:26 Comment 12/03/20 11:26 Sign Out <Brooklyn Donahue MD - Last Filed: 12/04/20 09:11> Sign Out Data: Sign Out Comment: Patient signed out to Dr. Chawla at time of shift change with ambulatory pulse ox, reassessment, possible admission pending Last updated by Brooklyn Donahue MD at 12/03/20 16:13
[2020-12-03 11:39] LABS: Source Nasal/Nares
[2020-12-03 12:20] LABS: Lactate 1.2 mmol/L (0.6-1.4)
[2020-12-03] MEDS: Albuterol/Ipratropium 3 ML UPD VIAL UPD ×3 (12:20→22:07)
[2020-12-03 12:26] LABS: Abs Immature Grans 0.14 10^3/uL (0.0-0.06); Absolute Basophil Count 0.03 10^3/uL (0.0-0.2); Basophils % 0.2; HCT 49.7 % (40.0-50.0); HGB 15.7 g/dL (13.5-17.5); Lymphocytes % 9.1; MCH 27.1 pg (27.0-33.0); MCHC 31.6 % (32.0-36.0); MCV 85.7 fL (80-95); MPV 9.7 fL (8.0-11.0); Neutrophils % 84.7; Nucleated RBC 0 %; RDW-SD 49.6 fL; WBC 14.03 10^3/uL (4.4-10.8)
[2020-12-03 12:34] LABS: COVID-19 PCR Negative (Negative)
[2020-12-03 12:50] LABS: Absolute Lymphocyte Count 1.28 10^3/uL (1.2-3.4); Absolute Neutrophil Count 11.88 10^3/uL (1.2-6.7)
[2020-12-03 12:52] LABS: Platelet Count 754 10^3/uL (130-400)
[2020-12-03 12:59] LABS: D-Dimer 191 ng/mlFEU (<500)
[2020-12-03 13:02] LABS: ALT 51 U/L (16-63); AST 20 U/L (15-37); Albumin 4.1 g/dL (3.4-5.0); Alkaline Phosphatase 83 U/L (46-116); Anion Gap 6.8 mmol/L (3-11); BUN 21 mg/dL (7-18); Bilirubin, Total 0.9 mg/dL (0.2-1.0); CO2 29.2 mmol/L (21.0-32.0); CREATININE 1.1 mg/dL (0.70-1.30); Calcium 9.2 mg/dL (8.5-10.1); Chloride 99 mmol/L (98-107); Glucose 112 mg/dL (74-106); Potassium 4.1 mmol/L (3.5-5.1); Sodium 135 mmol/L (136-145); Total Protein 8.2 g/dL (6.4-8.2)
[2020-12-03 13:30] LABS: Troponin I < 0.05 ng/mL (<0.06)
--- NOTE | 2020-12-03 13:45 | DI.RAD_ITS ---
Exam(s) XR PORTABLE CHEST AP EXAM: XR PORTABLE CHEST AP CLINICAL HISTORY: SOB. TECHNIQUE: 2D digital imaging was performed. COMPARISON: CR,XR XR PORTABLE CHEST AP from 12/27/2019 FINDINGS: LUNGS: Clear. No pleural abnormality seen. HEART: Normal. MEDIASTINUM: Normal. OTHER FINDINGS: None. IMPRESSION: No acute pulmonary findings. DATA REPOSITORY: RADIATION DOSE DELIVERED: Total DLP
[2020-12-03 13:46] LABS: NT-proBNP 25 pg/mL (<300)
[2020-12-03 14:02] LABS: BE (Venous) 3 mmol/L (-2-3); HCO3 (Venous) 28 mmol/L (23-28); O2 Sat (Venous) 71 %; TCO2 (Venous) 24 mmol/L (24-29); pCO2 (Venous) 47 mmHg (41-51); pH (Venous) 7.38 (7.31-7.41); pO2 (Venous) 38 mmHg
--- NOTE | 2020-12-03 14:15 | RT.EKG_ITS ---
APPROVED REPORT Exam: Resting ECG Reason for Exam: SOB Patient Location: E HR:89 bpm ECG Measurements Heart Rate 89 AXIS MT 159 P 14 QRSd 90 QRS 62 QT 365 T 10 QTc 445 Conclusion Sinus rhythm...normal P axis, V-rate 60- 99 Low voltage, precordial leads...precordial leads <1.0mV Consider anterior infarct...Q >30mS in V2-V5 no STEMI, non-diagnostic EKG I have reviewed and interpreted ECG and agree with software generated interpretation.
--- NOTE | 2020-12-03 15:15 | W.PULMCON ---
General Date Of Service Date of service: 12/03/20 Time of Service: 16:15 Requesting physician: Brooklyn Donahue Assessment and Plan Assessment and plan (1) Elevated hemidiaphragm: Status: Acute (2) Obesity hypoventilation syndrome: Status: Acute (3) Biventricular heart failure: Status: Acute (4) Smoker: Status: Acute Assessment and plan: This is a 50 yo man with biventricular heart failure, obesity, OHS on BiPAP and active smoking who presents with shortness of breath. Compared to his CT scan in 05/2020, his CT scan from today shows a new right hemidiaphragm elevation. This could be consistent with hemidiaphragm paralysis. Given his obesity and very large pericardial fat pad, the left lung size is quit small, so the addition of a left sided christiano diaphragm paralysis could lead to the perceived dyspnea he is experiencing. Additionally, this could result in shunt physiology due to atelectasis, although no significant atelectasis is seen on this CT scan. There is not a mass or other finding to lead to a phrenic nerve issue, however most cases of diaphragm paralysis are idiopathic. A complete outpatient evaluation is certainly indicated, however inpatient PFT's may help assess whether he in fact has COPD and whether this diaphragm dysfunction is resulting in a restrictive lung process. Clinically, he is not having a COPD exacerbation and would advise against treating him for sure. Steroids can cause further muscle weakness, which could worsen his respiratory status. I also do not beleive he is having a heart failure exacerbation, however it should be noted that he has biventricular failure and so would advise against any fluids at this time. Left hemidiaphragm dysfunction - incentive spirometry - VibraPEP - would discontinue steroids - do not give any fluids - continue as needed albuterol - can give as needed Duonebs - would not schedule these - I will arrange for inpatient spirometry to be done tomorrow - I will arrange for outpatient follow up with me - continued weight loss History of Present Illness Narrative: This is a 50 yo man with OHS on BiPAP, biventricular heart failure and a significant smoking history (50 pack years) presents to the ED with dyspnea and tachypnea. He states that his BiPAP has been functioning appropriately without any alarms and no increased leaks. He states that he has actually been losing weight recently. In the ED Duoneb therapy did not help his symptoms. His work up thus far has been completely unrevealing at this time, with the exception of his chest CT which shows a new elevation of his left hemidiaphragm. He is not having chest pain or wheezing, no pain annywhere. His main complaint is shortness of breath. Review of Systems All systems reviewed & are unremarkable except as noted in HPI and below PFSH Medical History Abnormal cardiovascular stress test Back muscle spasm Blind left eye Callus of foot Chronic low back pain Coccyx disorder COPD (chronic obstructive pulmonary disease) Cough Depression Gastroesophageal reflux disease Hyperprolactinemia Hypertension Hypogonadism Impaired fasting glucose Insomnia Leg edema Marital problems Morbid obesity Narcolepsy Neck pain Nocturia Organic impotence Skin lesion of foot Sleep apnea Smoker Social History Smoking/Tobacco Use Status: Current every day Tobacco Type: e-cigarettes Smoking risk assessment performed?: Yes Alcohol Intake: current Alcohol Intake frequency: holidays/special occasions only Alcohol type: hard liquor Drug use: Occasionally Substance use type: marijuana Details: About once a month, used last a couple weeks ago Do you feel safe at home: Yes Do you feel safe in your relationship?: Yes Visit Medication and Allergies Active Medications Generic Name Dose Route Start Last Admin Trade Name Freq PRN Reason Stop Dose Admin Sodium Chloride 500 mls @ 0 mls/hr 12/03/20 11:57 Saline 500ml Bag IV PRN PRN As Directed Sodium Chloride 1,000 mls @ 1,000 mls/hr 12/03/20 14:33 Saline 1000ml Bag IV 12/03/20 15:32 BOLUS ONE IV Miscellaneous Supplies 1 each 12/03/20 12:00 Iv Access IV DIRECTED [facility] Sodium Chloride 0 ml 12/03/20 11:57 Normal Saline Flush 10 Ml Syr IVP PRN PRN Allergies ibuprofen Adverse Reaction (Intermediate, Unverified 12/03/20 11:31) GI Bleeding Exam Const General: no acute distress [facility] Head: normocephalic Ears: external ears normal and no periauricular adenopathy General nose exam: nasal mucous membranes and turbinates normal Face and sinus: sinuses nontender Mouth: oropharynx normal and moist mucous membranes Teeth and gingiva: dentition normal Eyes General: appearance normal, both eyes and all related structures Pupils: PERRL Neck Neck: normal visual inspection and no lymphadenopathy Chest Chest: normal inspection of the chest Resp Effort & Inspection: normal respiratory effort Auscultation: clear to auscultation bilaterally, no rales, no rhonchi and no wheezes Cardio Rate: regular rate Rhythm: regular rhythm Heart Sounds: S1 normal, S2 normal and no murmurs Pulses: radial pulses present bilaterally GI Inspection: normal to inspection Palpation: soft Skin General skin exam: no rashes or lesions noted Neuro General: patient alert, patient awake and patient oriented x3 Extrem General: no clubbing, cyanosis or edema Psych Mental Status: mental status grossly normal Affect: normal affect Attitude: cooperative Results Last Vital Signs Temp 36.6 C 12/03/20 11:26 Pulse 82 12/03/20 14:42 Resp 34 H 12/03/20 14:42 BP 132/87 12/03/20 14:16 Pulse Ox 95 12/03/20 14:42 Labs Result diagrams: 12/03/20 12:15 12/03/20 12:15 Labs: Laboratory Results - last 24 hr 12/03/20 12/03/20 12/03/20 11:35 12:15 12:15 WBC 14.03 H RBC 5.80 H Hgb 15.7 Hct 49.7 MCV 85.7 MCH 27.1 MCHC 31.6 L RDW 16.0 H Plt Count 754 H* MPV 9.7 Immature Gran % 1.0 Neutrophils % 84.7 Lymphocytes % 9.1 Monocytes % 5.0 Eosinophils % 0.0 Basophils % 0.2 Nucleated RBC % 0 Absolute Neutrophils 11.88 H Absolute Lymphocytes 1.28 Absolute Monocytes 0.70 Absolute Eosinophils 0.00 Absolute Basophils 0.03 D-Dimer VBG pH VBG pCO2 VBG pO2 VBG HCO3 VBG Total CO2 VBG O2 Saturation VBG Base Excess VBG Lactate Sodium 135 L Potassium 4.1 Chloride 99 Carbon Dioxide 29.2 Anion Gap 6.8 BUN 21 H Creatinine 1.1 Estimated GFR/1.73 m2 >= 60.00 Glucose 112 H Calcium 9.2 Total Bilirubin 0.9 AST 20 ALT 51 Alkaline Phosphatase 83 Troponin I < 0.05 NT-Pro-B Natriuret Pep Total Protein 8.2 Albumin 4.1 COVID-19 Source Nasal/Nares SARS-CoV-2 (PCR) Negative 12/03/20 12/03/20 12/03/20 12:15 12:15 12:15 WBC RBC Hgb Hct MCV MCH MCHC RDW Plt Count MPV Immature Gran % Neutrophils % Lymphocytes % Monocytes % Eosinophils % Basophils % Nucleated RBC % Absolute Neutrophils Absolute Lymphocytes Absolute Monocytes Absolute Eosinophils Absolute Basophils D-Dimer 191 VBG pH VBG pCO2 VBG pO2 VBG HCO3 VBG Total CO2 VBG O2 Saturation VBG Base Excess VBG Lactate 1.2 Sodium Potassium Chloride Carbon Dioxide Anion Gap BUN Creatinine Estimated GFR/1.73 m2 Glucose Calcium Total Bilirubin AST ALT Alkaline Phosphatase Troponin I NT-Pro-B Natriuret Pep 25 Total Protein Albumin COVID-19 Source SARS-CoV-2 (PCR) 12/03/20 13:52 WBC RBC Hgb Hct MCV MCH MCHC RDW Plt Count MPV Immature Gran % Neutrophils % Lymphocytes % Monocytes % Eosinophils % Basophils % Nucleated RBC % Absolute Neutrophils Absolute Lymphocytes Absolute Monocytes Absolute Eosinophils Absolute Basophils D-Dimer VBG pH 7.38 VBG pCO2 47 VBG pO2 38 VBG HCO3 28 VBG Total CO2 24 VBG O2 Saturation 71 VBG Base Excess 3 VBG Lactate Sodium Potassium Chloride Carbon Dioxide Anion Gap BUN Creatinine Estimated GFR/1.73 m2 Glucose Calcium Total Bilirubin AST ALT Alkaline Phosphatase Troponin I NT-Pro-B Natriuret Pep Total Protein Albumin COVID-19 Source SARS-CoV-2 (PCR)
[2020-12-03] MEDS: Normal Saline 1,000 ML 1000 ML IV (15:18)
[2020-12-03] MEDS: Normal Saline Flush 10 ML SYR IVP ×2 (15:19→22:06)
[2020-12-03] MEDS: Omnipaque 350 MG/ML 100 ML BTL IJ (15:40)
[2020-12-03] MEDS: Normal Saline - Diluent 50 ML VIAL IV (15:40)
--- NOTE | 2020-12-03 15:45 | DI.CT_ITS ---
Exam(s) CT CHEST PE CTA EXAM: CT CHEST PE CTA CLINICAL HISTORY: SOB. TECHNIQUE: Imaging Protocol: Axial CT angiography was performed with multi-slice acquisition and mu lti-planar and/or 3D reconstructions. CONTRAST MATERIAL: Intravenous: Omnipaque 350 Contrast volume:structured data in ml COMPARISON: CT CT CHEST W from 06/06/2020 FINDINGS: CT angiography of the chest was performed with intravenous infusion of 100 cc of Omnipaque 350. Exam ination is technically limited by the patient's. The lungs are clear. No pleural effusion. Tracheobronchial tree appears intact. No evidence of pulmonary embolic disease please note subsegmental pulmonary vessels are not well eval uated due to artifact from the patient's size.. Thoracic aorta is of normal diameter, no thoracic ao rtic aneurysm or dissection, major branch vessels appear intact. No mediastinal or hilar adenopathy. Images obtained through the upper abdomen show unremarkable appearance of the visualized portions of the liver and spleen. IMPRESSION: Negative CT angiogram of the chest. No evidence of pulmonary embolic disease. RADIATION DOSE DELIVERED: 818.67mGy.cm Total DLP 818.67mGy.cm Total DLP 23.99mGy CTDIvol DATA REPOSITORY: All CT scans at this facility are submitted to the National Radiology Data Registry (NRDR) Dose Index Registry (DIR) with the [employer] ([employer]). RADIATION OPTIMIZATION: All CT scans at this facility use at least one of these dose optimization te chniques: automated exposure control; mA and/or kV adjustment per patient size (includes targeted exa ms where dose is matched to clinical indication); or iterative reconstruction.
[2020-12-03 15:57] LABS: Troponin I < 0.05 ng/mL (<0.06)
--- NOTE | 2020-12-03 18:03 | HPE_ITS ---
Date of service: 12/03/20 Time of Service: 18:03 Assessment and Plan Assessment and plan (1) SOB (shortness of breath): Status: Acute Assessment and plan: Not clear at this point, but appear to have excluded pneumonia, PE, CHF and acute IA. Not responding to treatment for COPD so this too seems less likely. Perhaps some combination of several factors including COPD, morbid obesity/hypoventilation. However I do wonder about anginal equivalent, even more so as there is in fact some vague CP within the presentation. Would advise stress test, and continued treatment for COPD in interim with stero ids and scheduled updrafts. Will also maintain on supplemental O2 as this seems to be helping to a degree (would aim to keep sats toward lower 90s as it is not unlikely that he is a retainer). It may also be that trial of more aggressive diuresis could conceivably be helpful, though it should be said that clinically he does not appear to be hypervolemic. History of Present Illness History of Present Illness Chief Complaint: SOB Narrative: 50 male with h/o COPD, morbid obesity, hypoventilation -- has baseline SOB, but here now with 2 weeks of worsening LEVY, and especially so past two days. Does report some variable chest tightness over past few days as well, though sometimes at rest, sometimes with exertion, resolving within some few minutes. Started on prednisone last week, w/o help. Here in ER w/o of note for absence of fever, O2 sats generally in mid-90s, t patrice two readings recorded in 80s (states that O2 he is now on has helped maybe a little), white count 14 (on steroids), negative chest CTA, no acute changes on EKG (low voltage, baseline), neg trop x 2. BNP 25, VBG pH 7.38, pCO2 47. COVID negative. Seen by Pulmonary and admission advised (verbal, formal report pending at this time) for further evaluation. Patient has received Duoneb x 2 w/o help. I was asked to evaluate for admission. Review of Systems All systems reviewed & are unremarkable except as noted in HPI and below PFSH Medical History Abnormal cardiovascular stress test Back muscle spasm Blind left eye Callus of foot Chronic low back pain Coccyx disorder COPD (chronic obstructive pulmonary disease) Cough Depression Gastroesophageal reflux disease Hyperprolactinemia Hypertension Hypogonadism Impaired fasting glucose Insomnia Leg edema Marital problems Morbid obesity Narcolepsy Neck pain Nocturia Organic impotence Skin lesion of foot Sleep apnea Smoker Social History Smoking/Tobacco Use Status: Current every day Tobacco Type: e-cigarettes Smoking risk assessment performed?: Yes Alcohol Intake: current Alcohol Intake frequency: holidays/special occasions only Alcohol type: hard liquor Drug use: Occasionally Substance use type: marijuana Details: About once a month, used last a couple weeks ago Do you feel safe at home: Yes Do you feel safe in your relationship?: Yes Meds Allergies and Home Medications Allergies Allergy/AdvReac Type Severity Reaction Status Date / Time ibuprofen AdvReac Intermediate GI Bleeding Unverified 12/03/20 11:31 Home Medications Medication Instructions Recorded Confirmed Type celecoxib 400 mg capsule 400 mg PO DAILY 01/11/18 12/03/20 History Lasix 20 mg tablet 40 mg PO DAILY PRN tab-cap NS 08/18/18 12/03/20 History atorvastatin 20 mg tablet 20 mg PO DAILY 08/18/18 12/03/20 History cabergoline 0.5 mg tablet See Rx Instructions PO ONCE 08/18/18 12/03/20 History chlorthalidone 50 mg tablet 50 mg PO DAILY 08/18/18 12/03/20 History dexlansoprazole 60 mg 60 mg PO DAILY 08/18/18 12/03/20 History capsule,biphase delayed release hydrocodone 10 mg-acetaminophen 1 tab PO Q6H PRN 08/18/18 12/03/20 History 325 mg tablet testosterone cypionate 100 mg/mL 50 mg IM QWEEK ml 08/18/18 12/03/20 History intramuscular oil umeclidinium 62.5 mcg/actuation 1 inh IH DAILY 08/18/18 12/03/20 History blister powder for inhalation aspirin 81 mg PO DAILY 10/08/18 12/03/20 History Farxiga 5 mg PO DAILY 12/27/19 12/03/20 History amlodipine 10 mg PO DAILY 12/27/19 12/03/20 History isosorbide mononitrate 30 mg PO DAILY 12/27/19 12/03/20 History levalbuterol tartrate [Xopenex HFA] 2 puff INHALATION Q6H PRN PRN 12/27/19 12/03/20 History loratadine [Claritin] 10 mg PO DAILY 12/27/19 12/03/20 History methylphenidate HCl 20 mg PO TID 12/27/19 12/03/20 History cariprazine [Vraylar] 6 mg PO DAILY 12/03/20 12/03/20 History cyclobenzaprine 10 mg PO HS PRN PRN 12/03/20 12/03/20 History doxycycline hyclate 100 mg PO BID 12/03/20 12/03/20 History duloxetine 30 mg PO DAILY 12/03/20 12/03/20 History insulin glargine [Basaglar KwikPen 22 unit SUBCUT DAILY 12/03/20 12/03/20 History U-100 Insulin] naloxone [Narcan] 4 mg INTRANASAL Q2-3M PRN 12/03/20 12/03/20 History prednisone 40 mg PO DAILY 12/03/20 12/03/20 History semaglutide [Ozempic] 1 mg SUBCUT Q7D 12/03/20 12/03/20 History Exam Narrative Exam Narrative: 121/64, 72, 36.6, 20, 95%. Morbidly obese, sitting up in stretcher. HEENT atraumatic; lungs diminished; heart distant but RRR; abdomen soft and NT; extremities trace lymphedema; neuro Ox3, moves all 4s Results Labs Result diagrams: 12/03/20 12:15 12/03/20 12:15 Labs: Laboratory Results - last 24 hr 12/03/20 12/03/20 12/03/20 11:35 12:15 12:15 WBC 14.03 H RBC 5.80 H Hgb 15.7 Hct 49.7 MCV 85.7 MCH 27.1 MCHC 31.6 L RDW 16.0 H Plt Count 754 H* MPV 9.7 Immature Gran % 1.0 Neutrophils % 84.7 Lymphocytes % 9.1 Monocytes % 5.0 Eosinophils % 0.0 Basophils % 0.2 Nucleated RBC % 0 Absolute Neutrophils 11.88 H Absolute Lymphocytes 1.28 Absolute Monocytes 0.70 Absolute Eosinophils 0.00 Absolute Basophils 0.03 D-Dimer VBG pH VBG pCO2 VBG pO2 VBG HCO3 VBG Total CO2 VBG O2 Saturation VBG Base Excess VBG Lactate Sodium 135 L Potassium 4.1 Chloride 99 Carbon Dioxide 29.2 Anion Gap 6.8 BUN 21 H Creatinine 1.1 Estimated GFR/1.73 m2 >= 60.00 Glucose 112 H Calcium 9.2 Total Bilirubin 0.9 AST 20 ALT 51 Alkaline Phosphatase 83 Troponin I < 0.05 NT-Pro-B Natriuret Pep Total Protein 8.2 Albumin 4.1 COVID-19 Source Nasal/Nares SARS-CoV-2 (PCR) Negative 12/03/20 12/03/20 12/03/20 12:15 12:15 12:15 WBC RBC Hgb Hct MCV MCH MCHC RDW Plt Count MPV Immature Gran % Neutrophils % Lymphocytes % Monocytes % Eosinophils % Basophils % Nucleated RBC % Absolute Neutrophils Absolute Lymphocytes Absolute Monocytes Absolute Eosinophils Absolute Basophils D-Dimer 191 VBG pH VBG pCO2 VBG pO2 VBG HCO3 VBG Total CO2 VBG O2 Saturation VBG Base Excess VBG Lactate 1.2 Sodium Potassium Chloride Carbon Dioxide Anion Gap BUN Creatinine Estimated GFR/1.73 m2 Glucose Calcium Total Bilirubin AST ALT Alkaline Phosphatase Troponin I NT-Pro-B Natriuret Pep 25 Total Protein Albumin COVID-19 Source SARS-CoV-2 (PCR) 12/03/20 12/03/20 13:52 15:15 WBC RBC Hgb Hct MCV MCH MCHC RDW Plt Count MPV Immature Gran % Neutrophils % Lymphocytes % Monocytes % Eosinophils % Basophils % Nucleated RBC % Absolute Neutrophils Absolute Lymphocytes Absolute Monocytes Absolute Eosinophils Absolute Basophils D-Dimer VBG pH 7.38 VBG pCO2 47 VBG pO2 38 VBG HCO3 28 VBG Total CO2 24 VBG O2 Saturation 71 VBG Base Excess 3 VBG Lactate Sodium Potassium Chloride Carbon Dioxide Anion Gap BUN Creatinine Estimated GFR/1.73 m2 Glucose Calcium Total Bilirubin AST ALT Alkaline Phosphatase Troponin I < 0.05 NT-Pro-B Natriuret Pep Total Protein Albumin COVID-19 Source SARS-CoV-2 (PCR) Last Vital Signs Temp 36.6 C 12/03/20 11:26 Pulse 72 12/03/20 17:46 Resp 20 12/03/20 17:40 BP 121/64 12/03/20 17:46 Pulse Ox 95 12/03/20 17:46
[2020-12-03 19:01] LABS: Bilirubin Negative (Negative); Blood Negative (Negative); Clarity Clear (Clear); Glucose 500 mg/dL (Negative); Ketones Negative (Negative); Leukocyte Esterase Negative (Negative); Nitrite Negative (Negative); Specific Gravity 1.025 (1.005-1.025); Urobilinogen 0.2 EU/dL (Up TO 0.2); pH 6.5 (5-8)
[2020-12-03 19:13] LABS: Bacteria Negative HPF (Negative); C & S Indicated? No; Crystals Negative HPF (Negative); Epithelial Cells Many HPF (Negative); Mucus Negative (Negative); RBC 0-2 HPF (0-2); WBC Negative HPF (0-5)
[2020-12-03] MEDS: methylPREDNISolone SUCC 40 MG VIAL 20 MG IVP (22:06)
[2020-12-03] MEDS: Melatonin 3 MG TAB PO (23:22)
[2020-12-03] MEDS: Cyclobenzaprine 10 MG TAB PO (23:22)
[2020-12-04 01:19] VITALS: PULSE 74; RESP 20; RESP 7; O2SAT 94
[2020-12-04] MEDS: Albuterol/Ipratropium 3 ML UPD VIAL UPD ×2 (01:19→07:50)
[2020-12-04] MEDS: methylPREDNISolone SUCC 40 MG VIAL 20 MG IVP (05:40)
[2020-12-04 07:40] VITALS: BP 138/88; PULSE 67; RESP 22; TEMP 36.7; O2SAT 92
[2020-12-04 07:50] VITALS: PULSE 68; RESP 1; RESP 18; RESP 8; O2SAT 92
[2020-12-04 07:51] VITALS: PULSE 70; RESP 1; RESP 17; RESP 8; O2SAT 98
[2020-12-04] MEDS: Aspirin E.C. 81 MG TABEC PO (08:23)
[2020-12-04] MEDS: Dexlansoprazole 30 MG CAP 60 MG PO (08:23)
[2020-12-04] MEDS: Methylphenidate 10 MG TAB 20 MG PO (08:24)
[2020-12-04] MEDS: Chlorthalidone 25 MG TAB 50 MG PO (08:24)
[2020-12-04] MEDS: amLODIPine 10 MG TAB PO (08:24)
[2020-12-04] MEDS: DULoxetine 30 MG CAP PO (08:24)
[2020-12-04] MEDS: Celecoxib 200 MG CAP 400 MG PO (08:24)
[2020-12-04] MEDS: Insulin Glargine 300 UNITS/3 ML PEN 22 UNITS SC (08:25)
[2020-12-04] MEDS: Atorvastatin 20 MG TAB PO (08:25)
[2020-12-04] MEDS: Isosorbide Mononitrate 30 MG TABCR PO (08:25)
[2020-12-04] MEDS: Loratidine 10 MG TAB PO (08:25)
[2020-12-04] MEDS: Normal Saline Flush 10 ML SYR IVP (08:26)
--- NOTE | 2020-12-04 08:33 | W.PULMPROG ---
General Date Of Service Date of service: 12/04/20 Time of Service: 07:50 Requesting physician: Brooklyn Donahue Reason for Consult: Dyspnea Subjective Note Note: This is a 50 yo man with OHS on BiPAP, biventricular heart failure and a significant smoking history (50 pack years) presents to the ED with dyspnea and tachypnea. He states that his BiPAP has been functioning appropriately without any alarms and no increased leaks. He states that he has actually been losing weight recently. In the ED Duoneb therapy did not help his symptoms. His work up thus far has been completely unrevealing at this time, with the exception of his chest CT which shows a new elevation of his left hemidiaphragm. Today he is doing well. He is saturating 92% on room air during my assessment. He is not having any chest pain. He does still feel dyspneic but has been using the incentive spirometer and Vibra Pep. Exam Const General: no acute distress Nutritional Appearance: obese HENMT Head: normocephalic Ears: external ears normal and no periauricular adenopathy General nose exam: nasal mucous membranes and turbinates normal Face and sinus: sinuses nontender Mouth: oropharynx normal and moist mucous membranes Teeth and gingiva: dentition normal Eyes General: appearance normal, both eyes and all related structures Pupils: PERRL Neck Neck: normal visual inspection and no lymphadenopathy Chest Chest: normal inspection of the chest Resp Effort & Inspection: normal respiratory effort Auscultation: clear to auscultation bilaterally, diminished lung sounds, no rales, no rhonchi and no wheezes Cardio Rate: regular rate Rhythm: regular rhythm Heart Sounds: S1 normal, S2 normal and no murmurs Pulses: radial pulses present bilaterally GI Inspection: normal to inspection Palpation: soft Skin General skin exam: no rashes or lesions noted Neuro General: patient alert, patient awake and patient oriented x3 Extrem General: no clubbing, cyanosis or edema Psych Mental Status: mental status grossly normal Affect: normal affect Attitude: cooperative Objective Last Vital Signs Temp 36.7 C 12/04/20 07:40 Pulse 70 12/04/20 07:51 Resp 17 12/04/20 07:51 BP 138/88 12/04/20 07:40 Pulse Ox 98 12/04/20 07:51 Laboratory Results - last 24 hr 12/03/20 12/03/20 12/03/20 11:35 12:15 12:15 WBC 14.03 H RBC 5.80 H Hgb 15.7 Hct 49.7 MCV 85.7 MCH 27.1 MCHC 31.6 L RDW 16.0 H Plt Count 754 H* MPV 9.7 Immature Gran % 1.0 Neutrophils % 84.7 Lymphocytes % 9.1 Monocytes % 5.0 Eosinophils % 0.0 Basophils % 0.2 Nucleated RBC % 0 Absolute Neutrophils 11.88 H Absolute Lymphocytes 1.28 Absolute Monocytes 0.70 Absolute Eosinophils 0.00 Absolute Basophils 0.03 D-Dimer VBG pH VBG pCO2 VBG pO2 VBG HCO3 VBG Total CO2 VBG O2 Saturation VBG Base Excess VBG Lactate Sodium 135 L Potassium 4.1 Chloride 99 Carbon Dioxide 29.2 Anion Gap 6.8 BUN 21 H Creatinine 1.1 Estimated GFR/1.73 m2 >= 60.00 Glucose 112 H Calcium 9.2 Total Bilirubin 0.9 AST 20 ALT 51 Alkaline Phosphatase 83 Troponin I < 0.05 NT-Pro-B Natriuret Pep Total Protein 8.2 Albumin 4.1 Urine Color Urine Clarity Urine pH Ur Specific [place] Urine Protein Urine Ketones Urine Blood Urine Nitrite Urine Bilirubin Urine Urobilinogen Ur Leukocyte Esterase Urine RBC Urine WBC Ur Epithelial Cells Urine Crystals Urine Bacteria Urine Mucus Ur Culture Indicated? Urine Glucose COVID-19 Source Nasal/Nares SARS-CoV-2 (PCR) Negative 12/03/20 12/03/20 12/03/20 12:15 12:15 12:15 WBC RBC Hgb Hct MCV MCH MCHC RDW Plt Count MPV Immature Gran % Neutrophils % Lymphocytes % Monocytes % Eosinophils % Basophils % Nucleated RBC % Absolute Neutrophils Absolute Lymphocytes Absolute Monocytes Absolute Eosinophils Absolute Basophils D-Dimer 191 VBG pH VBG pCO2 VBG pO2 VBG HCO3 VBG Total CO2 VBG O2 Saturation VBG Base Excess VBG Lactate 1.2 Sodium Potassium Chloride Carbon Dioxide Anion Gap BUN Creatinine Estimated GFR/1.73 m2 Glucose Calcium Total Bilirubin AST ALT Alkaline Phosphatase Troponin I NT-Pro-B Natriuret Pep 25 Total Protein Albumin Urine Color Urine Clarity Urine pH Ur Specific [place] Urine Protein Urine Ketones Urine Blood Urine Nitrite Urine Bilirubin Urine Urobilinogen Ur Leukocyte Esterase Urine RBC Urine WBC Ur Epithelial Cells Urine Crystals Urine Bacteria Urine Mucus Ur Culture Indicated? Urine Glucose COVID-19 Source SARS-CoV-2 (PCR) 12/03/20 12/03/20 12/03/20 13:52 15:15 18:45 WBC RBC Hgb Hct MCV MCH MCHC RDW Plt Count MPV Immature Gran % Neutrophils % Lymphocytes % Monocytes % Eosinophils % Basophils % Nucleated RBC % Absolute Neutrophils Absolute Lymphocytes Absolute Monocytes Absolute Eosinophils Absolute Basophils D-Dimer VBG pH 7.38 VBG pCO2 47 VBG pO2 38 VBG HCO3 28 VBG Total CO2 24 VBG O2 Saturation 71 VBG Base Excess 3 VBG Lactate Sodium Potassium Chloride Carbon Dioxide Anion Gap BUN Creatinine Estimated GFR/1.73 m2 Glucose Calcium Total Bilirubin AST ALT Alkaline Phosphatase Troponin I < 0.05 NT-Pro-B Natriuret Pep Total Protein Albumin Urine Color Yellow Urine Clarity Clear Urine pH 6.5 Ur Specific [place] 1.025 Urine Protein 30 H Urine Ketones Negative Urine Blood Negative Urine Nitrite Negative Urine Bilirubin Negative Urine Urobilinogen 0.2 Ur Leukocyte Esterase Negative Urine RBC 0-2 Urine WBC Negative Ur Epithelial Cells Many Urine Crystals Negative Urine Bacteria Negative Urine Mucus Negative Ur Culture Indicated? No Urine Glucose 500 H COVID-19 Source SARS-CoV-2 (PCR) Results Medications Medications: Active Medications Generic Name Dose Route Start Last Admin Trade Name Freq PRN Reason Stop Dose Admin Acetaminophen 650 mg 12/03/20 18:25 Acetaminophen 325 Mg Tab PO Q4H PRN PRN Hydrocodone Bitart/Acetaminophen 1 tab 12/04/20 07:15 Hydrocodone 10/Acetaminophen 325 Tab PO Q6H PRN PRN Albuterol Sulfate 2.5 mg 12/03/20 18:25 Albuterol 2.5 Mg/3 Ml Inh Soln Vial UPD Q4H PRN PRN Albuterol/Ipratropium 3 ml 12/03/20 19:00 12/04/20 07:50 Albuterol/Ipratropium 3 Ml Upd Vial UPD 3 ml Q6H CHEYANNE Administration Amlodipine Besylate 10 mg 12/04/20 08:30 12/04/20 08:24 Amlodipine 10 Mg Tab PO 10 mg DAILY CHEYANNE Administration Aspirin 81 mg 12/04/20 08:30 12/04/20 08:23 Aspirin E.C. 81 Mg Tabec PO 81 mg DAILY CHEYANNE Administration Atorvastatin Calcium 20 mg 12/04/20 08:30 12/04/20 08:25 Atorvastatin 20 Mg Tab PO 20 mg DAILY CHEYANNE Administration Celecoxib 400 mg 12/04/20 08:30 12/04/20 08:24 Celecoxib 200 Mg Cap PO 400 mg DAILY CHEYANNE Administration Chlorthalidone 50 mg 12/04/20 08:30 12/04/20 08:24 Chlorthalidone 25 Mg Tab PO 50 mg DAILY CHEYANNE Administration Cyclobenzaprine HCl 10 mg 12/03/20 18:28 12/03/20 23:22 Cyclobenzaprine 10 Mg Tab PO 10 mg HS PRN PRN Administration Dexlansoprazole 60 mg 12/04/20 08:30 12/04/20 08:23 Dexlansoprazole 30 Mg Cap PO 60 mg DAILY CHEYANNE Administration Dextrose 0 gm 12/03/20 18:36 Glucose 40% Oral Solution 15 Gm/37.5 Gm Tube PO DIRECTED PRN Dextrose/Water 0 gm 12/03/20 18:36 Dextrose 50%-Water 25 Gm/50 Ml Syr IVP DIRECTED PRN Dimethicone/Zinc Oxide 0 gm 12/03/20 18:25 Alex Protect Cream 142 Gm Tube TP PRN PRN Duloxetine HCl 30 mg 12/04/20 08:30 12/04/20 08:24 Duloxetine 30 Mg Cap PO 30 mg DAILY CHEYANNE Administration Sodium Chloride 500 mls @ 0 mls/hr 12/03/20 11:57 Saline 500ml Bag IV PRN PRN As Directed IV Miscellaneous Supplies 1 each 12/03/20 12:00 Iv Access IV DIRECTED [facility] Insulin Aspart 0 units 12/04/20 08:00 12/04/20 08:27 Insulin Aspart 300 Units/3 Ml Pen SC Not Given 0800,1200,1700 [facility] Protocol Insulin Glargine 22 units 12/04/20 08:30 12/04/20 08:25 Insulin Glargine 300 Units/3 Ml Pen SC 22 units DAILY CHEYANNE Administration Isosorbide Mononitrate 30 mg 12/04/20 08:30 12/04/20 08:25 Isosorbide Mononitrate 30 Mg Tabcr PO 30 mg DAILY CHEYANNE Administration Loratadine 10 mg 12/04/20 08:30 12/04/20 08:25 Loratidine 10 Mg Tab PO 10 mg DAILY CHEYANNE Administration Melatonin 3 - 6 mg 12/04/20 07:15 Melatonin 3 Mg Tab PO HS PRN PRN Methylphenidate HCl 20 mg 12/04/20 08:30 12/04/20 08:24 Methylphenidate 10 Mg Tab PO 20 mg TID CHEYANNE Administration Non-Formulary Medication 6 mg 12/04/20 08:30 Cariprazine [Vraylar] PO DAILY CHEYANNE Non-Formulary Medication 5 mg 12/04/20 08:30 Dapagliflozin [Farxiga] PO DAILY CHEYANNE Cabergoline 0.5 Mg 0 each 12/06/20 08:30 Tablet PO MoTh@0830 CHEYANNE Sodium Chloride 0 ml 12/03/20 11:57 12/04/20 08:26 Normal Saline Flush 10 Ml Syr IVP 10 ml PRN PRN Administration Allergies ibuprofen Adverse Reaction (Intermediate, Unverified 12/03/20 11:31) GI Bleeding Labs Result Diagrams: 12/03/20 12:15 12/03/20 12:15 Labs: 12/03/20 13:40 Blood Blood Culture - Pending 12/03/20 12:15 Blood Blood Culture - Pending Laboratory Tests Range/Units 12/03/20 12/03/20 12/03/20 11:35 12:15 12:15 WBC (4.4-10.8) 10^3/uL 14.03 H RBC (4.36-5.78) 10^6/uL 5.80 H Hgb (13.5-17.5) g/dL 15.7 Hct (40.0-50.0) % 49.7 MCV (80-95) fL 85.7 MCH (27.0-33.0) pg 27.1 MCHC (32.0-36.0) % 31.6 L RDW (11.8-14.1) % 16.0 H Plt Count (130-400) 10^3/uL 754 H* MPV (8.0-11.0) fL 9.7 Immature Gran % 1.0 Neutrophils % 84.7 Lymphocytes % 9.1 Monocytes % 5.0 Eosinophils % 0.0 Basophils % 0.2 Nucleated RBC % % 0 Absolute Neutrophils (1.2-6.7) 10^3/uL 11.88 H Absolute Lymphocytes (1.2-3.4) 10^3/uL 1.28 Absolute Monocytes (0.1-0.8) 10^3/uL 0.70 Absolute Eosinophils (0.0-0.7) 10^3/uL 0.00 Absolute Basophils (0.0-0.2) 10^3/uL 0.03 D-Dimer (<500) ng/mlFEU VBG pH (7.31-7.41) VBG pCO2 (41-51) mmHg VBG pO2 mmHg VBG HCO3 (23-28) mmol/L VBG Total CO2 (24-29) mmol/L VBG O2 Saturation % VBG Base Excess (-2-3) mmol/L VBG Lactate (0.6-1.4) mmol/L Sodium (136-145) mmol/L 135 L Potassium (3.5-5.1) mmol/L 4.1 Chloride (98-107) mmol/L 99 Carbon Dioxide (21.0-32.0) mmol/L 29.2 Anion Gap (3-11) mmol/L 6.8 BUN (7-18) mg/dL 21 H Creatinine (0.70-1.30) mg/dL 1.1 Estimated GFR/1.73 m2 (mL/min/1.73m2) >= 60.00 Glucose (74-106) mg/dL 112 H Calcium (8.5-10.1) mg/dL 9.2 Total Bilirubin (0.2-1.0) mg/dL 0.9 AST (15-37) U/L 20 ALT (16-63) U/L 51 Alkaline Phosphatase (46-116) U/L 83 Troponin I (<0.06) ng/mL < 0.05 NT-Pro-B Natriuret Pep (<300) pg/mL Total Protein (6.4-8.2) g/dL 8.2 Albumin (3.4-5.0) g/dL 4.1 Urine Color (Yellow) Urine Clarity (Clear) Urine pH (5-8) Ur Specific [place] (1.005-1.025) Urine Protein (Negative) mg/dL Urine Ketones (Negative) mg/dL Urine Blood (Negative) Urine Nitrite (Negative) Urine Bilirubin (Negative) Urine Urobilinogen (Up TO 0.2) EU/dL Ur Leukocyte Esterase (Negative) Urine RBC (0-2) HPF Urine WBC (0-5) HPF Ur Epithelial Cells (Negative) HPF Urine Crystals (Negative) HPF Urine Bacteria (Negative) HPF Urine Mucus (Negative) Ur Culture Indicated? Urine Glucose (Negative) mg/dL COVID-19 Source Nasal/Nares SARS-CoV-2 (PCR) (Negative) Negative Range/Units 12/03/20 12/03/20 12/03/20 12:15 12:15 12:15 WBC (4.4-10.8) 10^3/uL RBC (4.36-5.78) 10^6/uL Hgb (13.5-17.5) g/dL Hct (40.0-50.0) % MCV (80-95) fL MCH (27.0-33.0) pg MCHC (32.0-36.0) % RDW (11.8-14.1) % Plt Count (130-400) 10^3/uL MPV (8.0-11.0) fL Immature Gran % Neutrophils % Lymphocytes % Monocytes % Eosinophils % Basophils % Nucleated RBC % % Absolute Neutrophils (1.2-6.7) 10^3/uL Absolute Lymphocytes (1.2-3.4) 10^3/uL Absolute Monocytes (0.1-0.8) 10^3/uL Absolute Eosinophils (0.0-0.7) 10^3/uL Absolute Basophils (0.0-0.2) 10^3/uL D-Dimer (<500) ng/mlFEU 191 VBG pH (7.31-7.41) VBG pCO2 (41-51) mmHg VBG pO2 mmHg VBG HCO3 (23-28) mmol/L VBG Total CO2 (24-29) mmol/L VBG O2 Saturation % VBG Base Excess (-2-3) mmol/L VBG Lactate (0.6-1.4) mmol/L 1.2 Sodium (136-145) mmol/L Potassium (3.5-5.1) mmol/L Chloride (98-107) mmol/L Carbon Dioxide (21.0-32.0) mmol/L Anion Gap (3-11) mmol/L BUN (7-18) mg/dL Creatinine (0.70-1.30) mg/dL Estimated GFR/1.73 m2 (mL/min/1.73m2) Glucose (74-106) mg/dL Calcium (8.5-10.1) mg/dL Total Bilirubin (0.2-1.0) mg/dL AST (15-37) U/L ALT (16-63) U/L Alkaline Phosphatase (46-116) U/L Troponin I (<0.06) ng/mL NT-Pro-B Natriuret Pep (<300) pg/mL 25 Total Protein (6.4-8.2) g/dL Albumin (3.4-5.0) g/dL Urine Color (Yellow) Urine Clarity (Clear) Urine pH (5-8) Ur Specific [place] (1.005-1.025) Urine Protein (Negative) mg/dL Urine Ketones (Negative) mg/dL Urine Blood (Negative) Urine Nitrite (Negative) Urine Bilirubin (Negative) Urine Urobilinogen (Up TO 0.2) EU/dL Ur Leukocyte Esterase (Negative) Urine RBC (0-2) HPF Urine WBC (0-5) HPF Ur Epithelial Cells (Negative) HPF Urine Crystals (Negative) HPF Urine Bacteria (Negative) HPF Urine Mucus (Negative) Ur Culture Indicated? Urine Glucose (Negative) mg/dL COVID-19 Source SARS-CoV-2 (PCR) (Negative) Range/Units 12/03/20 12/03/20 12/03/20 13:52 15:15 18:45 WBC (4.4-10.8) 10^3/uL RBC (4.36-5.78) 10^6/uL Hgb (13.5-17.5) g/dL Hct (40.0-50.0) % MCV (80-95) fL MCH (27.0-33.0) pg MCHC (32.0-36.0) % RDW (11.8-14.1) % Plt Count (130-400) 10^3/uL MPV (8.0-11.0) fL Immature Gran % Neutrophils % Lymphocytes % Monocytes % Eosinophils % Basophils % Nucleated RBC % % Absolute Neutrophils (1.2-6.7) 10^3/uL Absolute Lymphocytes (1.2-3.4) 10^3/uL Absolute Monocytes (0.1-0.8) 10^3/uL Absolute Eosinophils (0.0-0.7) 10^3/uL Absolute Basophils (0.0-0.2) 10^3/uL D-Dimer (<500) ng/mlFEU VBG pH (7.31-7.41) 7.38 VBG pCO2 (41-51) mmHg 47 VBG pO2 mmHg 38 VBG HCO3 (23-28) mmol/L 28 VBG Total CO2 (24-29) mmol/L 24 VBG O2 Saturation % 71 VBG Base Excess (-2-3) mmol/L 3 VBG Lactate (0.6-1.4) mmol/L Sodium (136-145) mmol/L Potassium (3.5-5.1) mmol/L Chloride (98-107) mmol/L Carbon Dioxide (21.0-32.0) mmol/L Anion Gap (3-11) mmol/L BUN (7-18) mg/dL Creatinine (0.70-1.30) mg/dL Estimated GFR/1.73 m2 (mL/min/1.73m2) Glucose (74-106) mg/dL Calcium (8.5-10.1) mg/dL Total Bilirubin (0.2-1.0) mg/dL AST (15-37) U/L ALT (16-63) U/L Alkaline Phosphatase (46-116) U/L Troponin I (<0.06) ng/mL < 0.05 NT-Pro-B Natriuret Pep (<300) pg/mL Total Protein (6.4-8.2) g/dL Albumin (3.4-5.0) g/dL Urine Color (Yellow) Yellow Urine Clarity (Clear) Clear Urine pH (5-8) 6.5 Ur Specific [place] (1.005-1.025) 1.025 Urine Protein (Negative) mg/dL 30 H Urine Ketones (Negative) mg/dL Negative Urine Blood (Negative) Negative Urine Nitrite (Negative) Negative Urine Bilirubin (Negative) Negative Urine Urobilinogen (Up TO 0.2) EU/dL 0.2 Ur Leukocyte Esterase (Negative) Negative Urine RBC (0-2) HPF 0-2 Urine WBC (0-5) HPF Negative Ur Epithelial Cells (Negative) HPF Many Urine Crystals (Negative) HPF Negative Urine Bacteria (Negative) HPF Negative Urine Mucus (Negative) Negative Ur Culture Indicated? No Urine Glucose (Negative) mg/dL 500 H COVID-19 Source SARS-CoV-2 (PCR) (Negative) Assessment and Plan Assessment and plan (1) Smoker: Status: Acute (2) Biventricular heart failure: Status: Acute (3) Elevated hemidiaphragm: Status: Acute (4) Obesity hypoventilation syndrome: Status: Acute Assessment and plan: This is a 50 yo man with biventricular heart failure, obesity, OHS on BiPAP and active smoking who presents with shortness of breath. Compared to his CT scan in 05/2020, his CT scan from today shows a new right hemidiaphragm elevation. This could be consistent with hemidiaphragm paralysis. Given his obesity and very large pericardial fat pad, the left lung size is quit small, so the addition of a left sided christiano diaphragm paralysis could lead to the perceived dyspnea he is experiencing. Additionally, this could result in shunt physiology due to atelectasis, although no significant atelectasis is seen on this CT scan. There is not a mass or other finding to lead to a phrenic nerve issue, however most cases of diaphragm paralysis are idiopathic. A complete outpatient evaluation is certainly indicated, however inpatient PFT's may help assess whether he in fact has COPD and whether this diaphragm dysfunction is resulting in a restrictive lung process. Clinically, he is not having a COPD exacerbation and would advise against treating him for sure. Steroids can cause further muscle weakness, which could worsen his respiratory status. I also do not believe he is having a heart failure exacerbation, however it should be noted that he has biventricular failure and so would advise against any fluids at this time. Left hemidiaphragm dysfunction - incentive spirometry - VibraPEP - would discontinue steroids - do not give any fluids - continue as needed albuterol - can give as needed Duonebs - would not schedule these - hopefully will be able to complete spirometry prior to discharge (but not a necessity) - I will arrange for outpatient follow up with me - continued weight loss and ambulation
[2020-12-04 09:48] VITALS: PULSE 111; PULSE 76; PULSE 80; RESP 18; RESP 19; RESP 30; O2SAT 94; O2SAT 98
--- NOTE | 2020-12-04 11:29 | DSE_ITS ---
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 (4) Biventricular heart failure: Status: Chronic (5) Smoker: Status: Chronic (6) COVID-19 ruled out by laboratory testing: Status: Ruled-out Discharge Plan Disposition Patient Disposition: HOME Condition: Stable Discharge Details Reason For Visit: SOB Admit Date/Time: 12/03/20 18:25 Admit Provider: Neil Pineda Attending Provider: Neil Pineda Primary Care Provider: Татьяна Koehler Hospital Course Hospital Course: Mr Sanz is a 50 year old male with PMHx of OHS on BiPAP (not requiring supplemental oxygen), as well as h/o biventricular failure, IDDM2, obesity with BMI of 63, who was observed on [facility] hospitalist service having presented with shortness of breath. He ruled out for ACS, and there was no evidence of COPD or CHF exacerbation. He was evaluated by Dr Pena of pulmonology, who felt that the patient's shortness of breath likely has to do with restrictive disease, specifically because of his Left hemidiaphragmatic elevation and increased size of pericardial fat pad. The patient is getting PFTs today prior to his discharge home with outpatient follow up with pulmonology. He does not require oxygen on discharge. Care for patient as well as completion of his discharge summary on day of discharge 40 minutes. Home Meds and New Rx's Prescriptions: Continued celecoxib [Celebrex] 400 mg capsule 400 mg PO DAILY RF: 0 hydrocodone-acetaminophen 10-325 mg tablet 1 tab PO Q6H PRNRF: 0 Dexilant 60 mg capsule,biphase delayed releas 60 mg PO DAILY RF: 0 cabergoline 0.5 mg tablet See Rx Instructions PO ONCE RF: 0 testosterone cypionate 100 mg/mL oil 50 mg IM QWEEK RF: 0 chlorthalidone 50 mg tablet 50 mg PO DAILY RF: 0 Incruse Ellipta 62.5 mcg/actuation blister with device 1 inh IH DAILY RF: 0 atorvastatin [Lipitor] 20 mg tablet 20 mg PO DAILY RF: 0 furosemide [Lasix] 20 mg tablet 40 mg PO DAILY PRNRF: 0 cyclobenzaprine 10 mg tablet 10 mg PO HS PRN PRNRF: 0 duloxetine 30 mg capsule,delayed release(DR/EC) 30 mg PO DAILY RF: 0 Basaglar KwikPen U-100 Insulin 100 unit/mL (3 mL) insulin pen 22 unit SUBCUT DAILY RF: 0 Vraylar 6 mg capsule 6 mg PO DAILY RF: 0 Narcan 4 mg/actuation Goodman,Non-Aerosol 4 mg INTRANASAL Q2-3M PRNRF: 0 Ozempic 1 mg/dose (4 mg/3 mL) pen injector 1 mg SUBCUT Q7D RF: 0 aspirin 81 mg Tablet,Delayed Release (Dr/Ec) 81 mg PO DAILY RF: 0 methylphenidate HCl 20 mg tablet 20 mg PO TID RF: 0 isosorbide mononitrate 30 mg tablet extended release 24 hr 30 mg PO DAILY RF: 0 amlodipine 10 mg tablet 10 mg PO DAILY RF: 0 loratadine [Claritin] 10 mg Tablet 10 mg PO DAILY RF: 0 levalbuterol tartrate [Xopenex HFA] 45 mcg/actuation HFA aerosol inhaler 2 puff INHALATION Q6H PRN PRNRF: 0 Farxiga 5 mg tablet 5 mg PO DAILY RF: 0 Discontinued prednisone 20 mg tablet 40 mg PO DAILY RF: 0 doxycycline hyclate 100 mg tablet 100 mg PO BID RF: 0 Discharge Instructions Additional Instructions: Follow up with Dr Pena as scheduled. Return to the hospital with any fever, bleeding, chest pain, shortness of breath. Stand Alone Forms: Nursing Discharge Form Referrals: Evelin Pena MD [ [facility] STAFF PHYSICIAN] - 12/17/20 1:00 pm Activity:: Activity as Tolerated Equipment/Supplies:: No Equipment Needed Diet:: Low Sodium Discharge Orders Discharge Orders: Discharge Order (Routine); Ordered 12/04/20 Ordered By: Theresa Peña DS: Summary Time Spent with Patient providing and/or coordinating discharge services: Greater than 30 minutes Status at Discharge Functional status at discharge: independent ambulation Overall status at discharge: patient is progressing back to baseline Mental Status: mental status grossly normal Speech and Movement: speech and movement normal Mood: congruent mood Affect: normal affect Exam Narrative Exam Narrative: General: pleasant Obese male who is not dyspneic/tachypneic while seated at the edge of the bed on room air HEENT: L eye closed (s/p enucleation), R eye EOMI. MMM Heart: RRR, no m/r/g Lungs: CTAB Abdomen: rotund Extremities: no edema BLE's Psych Mental Status: mental status grossly normal Speech and Movement: speech and movement normal Mood: congruent mood Affect: normal affect DS: Data Vitals/I&O Vitals and I&O: Vital Signs Temperature 36.7 C 12/04/20 07:40 Temperature Source Tympanic 12/03/20 23:34 Pulse 70 12/04/20 07:51 Pulse Rhythm Regular 12/04/20 07:41 Pulse 76 12/03/20 17:46 Respiratory Rate 17 12/04/20 07:51 Respiratory Effort Non-Labored 12/04/20 07:41 Respiratory Depth Shallow 12/04/20 07:41 Respiratory Pattern Normal 12/04/20 07:41 Blood Pressure 138/88 12/04/20 07:40 Blood Pressure Mean 75 12/03/20 17:46 Pulse Oximetry 98 12/04/20 07:51 Oxygen Delivery Method Nasal Cannula 12/04/20 07:50 Oxygen Flow Rate 2 12/04/20 07:50 Pain Level 0 12/04/20 07:40 Comment 12/03/20 23:34 Intake & Output 12/03/20 12/03/20 12/04/20 11:59 23:59 11:59 Intake Total 490 / 490 Balance 490 / 490 Weight 197.7 kg 193.4 kg Intake: Oral 490 / 490 Other: Urine Color Yellow Urine Appearance Clear Clear Urine Odor Normal Comment Patient reports he voids independently, states he has no burning or issues with frquency. Voiding Methods Toilet Data Completed and Pending Completed studies during hospitalization [Text1]: CXR: No acute pulmonary findings. CTA chest: Negative CT angiogram of the chest. No evidence of pulmonary embolic disease. Labs on day of discharge: Labs from last 24 hours 12/03/20 12/03/20 12/03/20 18:45 15:15 15:15 WBC RBC Hgb Hct MCV MCH MCHC RDW Plt Count MPV Immature Gran % Neutrophils % Lymphocytes % Monocytes % Eosinophils % Basophils % Nucleated RBC % Absolute Neutrophils Absolute Lymphocytes Absolute Monocytes Absolute Eosinophils Absolute Basophils D-Dimer VBG pH VBG pCO2 VBG pO2 VBG HCO3 VBG Total CO2 VBG O2 Saturation VBG Base Excess VBG Lactate Sodium Potassium Chloride Carbon Dioxide Anion Gap BUN Creatinine Estimated GFR/1.73 m2 Glucose Calcium Total Bilirubin AST ALT Alkaline Phosphatase Troponin I < 0.05 NT-Pro-B Natriuret Pep Total Protein Albumin Total Testosterone Pending Free Testosterone Pending Urine Color Yellow Urine Clarity Clear Urine pH 6.5 Ur Specific [place] 1.025 Urine Protein 30 H Urine Ketones Negative Urine Blood Negative Urine Nitrite Negative Urine Bilirubin Negative Urine Urobilinogen 0.2 Ur Leukocyte Esterase Negative Urine RBC 0-2 Urine WBC Negative Ur Epithelial Cells Many Urine Crystals Negative Urine Bacteria Negative Urine Mucus Negative Ur Culture Indicated? No Urine Glucose 500 H COVID-19 Source SARS-CoV-2 (PCR) 12/03/20 12/03/20 12/03/20 13:52 12:15 12:15 WBC RBC Hgb Hct MCV MCH MCHC RDW Plt Count MPV Immature Gran % Neutrophils % Lymphocytes % Monocytes % Eosinophils % Basophils % Nucleated RBC % Absolute Neutrophils Absolute Lymphocytes Absolute Monocytes Absolute Eosinophils Absolute Basophils D-Dimer VBG pH 7.38 VBG pCO2 47 VBG pO2 38 VBG HCO3 28 VBG Total CO2 24 VBG O2 Saturation 71 VBG Base Excess 3 VBG Lactate 1.2 Sodium Potassium Chloride Carbon Dioxide Anion Gap BUN Creatinine Estimated GFR/1.73 m2 Glucose Calcium Total Bilirubin AST ALT Alkaline Phosphatase Troponin I NT-Pro-B Natriuret Pep 25 Total Protein Albumin Total Testosterone Free Testosterone Urine Color Urine Clarity Urine pH Ur Specific [place] Urine Protein Urine Ketones Urine Blood Urine Nitrite Urine Bilirubin Urine Urobilinogen Ur Leukocyte Esterase Urine RBC Urine WBC Ur Epithelial Cells Urine Crystals Urine Bacteria Urine Mucus Ur Culture Indicated? Urine Glucose COVID-19 Source SARS-CoV-2 (PCR) 12/03/20 12/03/20 12/03/20 12:15 12:15 12:15 WBC 14.03 H RBC 5.80 H Hgb 15.7 Hct 49.7 MCV 85.7 MCH 27.1 MCHC 31.6 L RDW 16.0 H Plt Count 754 H* MPV 9.7 Immature Gran % 1.0 Neutrophils % 84.7 Lymphocytes % 9.1 Monocytes % 5.0 Eosinophils % 0.0 Basophils % 0.2 Nucleated RBC % 0 Absolute Neutrophils 11.88 H Absolute Lymphocytes 1.28 Absolute Monocytes 0.70 Absolute Eosinophils 0.00 Absolute Basophils 0.03 D-Dimer 191 VBG pH VBG pCO2 VBG pO2 VBG HCO3 VBG Total CO2 VBG O2 Saturation VBG Base Excess VBG Lactate Sodium 135 L Potassium 4.1 Chloride 99 Carbon Dioxide 29.2 Anion Gap 6.8 BUN 21 H Creatinine 1.1 Estimated GFR/1.73 m2 >= 60.00 Glucose 112 H Calcium 9.2 Total Bilirubin 0.9 AST 20 ALT 51 Alkaline Phosphatase 83 Troponin I < 0.05 NT-Pro-B Natriuret Pep Total Protein 8.2 Albumin 4.1 Total Testosterone Free Testosterone Urine Color Urine Clarity Urine pH Ur Specific [place] Urine Protein Urine Ketones Urine Blood Urine Nitrite Urine Bilirubin Urine Urobilinogen Ur Leukocyte Esterase Urine RBC Urine WBC Ur Epithelial Cells Urine Crystals Urine Bacteria Urine Mucus Ur Culture Indicated? Urine Glucose COVID-19 Source SARS-CoV-2 (PCR) 12/03/20 11:35 WBC RBC Hgb Hct MCV MCH MCHC RDW Plt Count MPV Immature Gran % Neutrophils % Lymphocytes % Monocytes % Eosinophils % Basophils % Nucleated RBC % Absolute Neutrophils Absolute Lymphocytes Absolute Monocytes Absolute Eosinophils Absolute Basophils D-Dimer VBG pH VBG pCO2 VBG pO2 VBG HCO3 VBG Total CO2 VBG O2 Saturation VBG Base Excess VBG Lactate Sodium Potassium Chloride Carbon Dioxide Anion Gap BUN Creatinine Estimated GFR/1.73 m2 Glucose Calcium Total Bilirubin AST ALT Alkaline Phosphatase Troponin I NT-Pro-B Natriuret Pep Total Protein Albumin Total Testosterone Free Testosterone Urine Color Urine Clarity Urine pH Ur Specific [place] Urine Protein Urine Ketones Urine Blood Urine Nitrite Urine Bilirubin Urine Urobilinogen Ur Leukocyte Esterase Urine RBC Urine WBC Ur Epithelial Cells Urine Crystals Urine Bacteria Urine Mucus Ur Culture Indicated? Urine Glucose COVID-19 Source Nasal/Nares SARS-CoV-2 (PCR) Negative 12/03/20 13:40 Blood Blood Culture - Pending 12/03/20 12:15 Blood Blood Culture - Pending Preliminary micro results at discharge 12/03/20 13:40 Blood Culture - Pending Blood 12/03/20 12:15 Blood Culture - Pending Blood [facility] Medical History Abnormal cardiovascular stress test Back muscle spasm Blind left eye Callus of foot Chronic low back pain Coccyx disorder COPD (chronic obstructive pulmonary disease) Cough Depression Gastroesophageal reflux disease Hyperprolactinemia Hypertension Hypogonadism Impaired fasting glucose Insomnia Leg edema Marital problems Morbid obesity Narcolepsy Neck pain Nocturia Organic impotence Skin lesion of foot Sleep apnea Smoker Social History Smoking/Tobacco Use Status: Current every day Tobacco Type: e-cigarettes Smoking risk assessment performed?: Yes Alcohol Intake: current Alcohol Intake frequency: holidays/special occasions only Alcohol type: hard liquor Drug use: Occasionally Substance use type: marijuana Details: About once a month, used last a couple weeks ago Do you feel safe at home: Yes Do you feel safe in your relationship?: Yes
--- NOTE | 2020-12-04 14:12 | W.PFT ---
Date of service: 12/04/20 Time of Service: 09:02 Pulmonary Function Test Result Requesting Provider Duchene Indications: Dyspnea Interpretation Spirometry: There is no airflow limitation. The there is a restrictive pattern to the spirometry Impression Restrictive patterned spirometry. Would recommend full pulmonary function testing with lung volumes and DLCO for further evaluation. Clinical Correlation therefore is recommended.
[2020-12-14 15:37] LABS: Testosterone, Free 14.5 ng/dL (4.06-15.6); Testosterone, Total 518 ng/dL (240-950)
== END 2020-12-04 12:39 | disposition home or self-care (01) ==
LOC: ER 18:34 → MS 20:40
PROVIDERS: Student in an Organized Health Care Education/Training Program; Admitting Provider General Practice; Emergency Provider Physician Assistant; PCP Physician Assistant Medical; Visit Provider General Practice
DX: E66.2 Morbid (severe) obesity with alveolar hypoventilation (principal); I51.5 Myocardial degeneration; J98.6 Disorders of diaphragm; I50.82 Biventricular heart failure; F17.210 Nicotine dependence, cigarettes, uncomplicated; Z68.44 Body mass index [BMI] 60.0-69.9, adult; J44.9 Chronic obstructive pulmonary disease, unspecified; F32.A Depression, unspecified; K21.9 Gastro-esophageal reflux disease without esophagitis; I10 Essential (primary) hypertension; R73.01 Impaired fasting glucose; G47.00 Insomnia, unspecified; R60.0 Localized edema; M54.2 Cervicalgia; G47.419 Narcolepsy without cataplexy; Z20.822 Contact with and (suspected) exposure to COVID-19
CPT/HCPCS: 36415; 36416; 71275; 80053; 82805; 82962; 84402; 84403; 87040; 87635; 93005; 94618; 94640; 96360; 99285; 71045; 81003; 81015; 83605; 83880; 84484; 85025; 85379; 93010; 94010; 94667; 99217; 99219; G0378; J3490; J7620

== ENCOUNTER 2020-12-18 11:49 | Outpatient (CLI) | payer MEDICARE, MEDICAID, SELFPAY ==
--- NOTE | 2021-01-04 06:41 | W.PFT ---
Date of service: 12/18/20 Time of Service: 11:17 Pulmonary Function Test Result Requesting Provider Duchene Indications: Restrictive lung disease Interpretation Spirometry: Muscle pressures are significantly reduced (MIP 57%, MEP 36%) Impression Reduced muscle pressures Clinical Correlation therefore is recommended.
== END 2020-12-18 11:50 | disposition home or self-care (01) ==
LOC: RT 11:50
PROVIDERS: PCP Physician Assistant Medical; Visit Provider Student in an Organized Health Care Education/Training Program
DX: J98.6 Disorders of diaphragm (principal); J98.4 Other disorders of lung; R94.2 Abnormal results of pulmonary function studies
CPT/HCPCS: 94200

== ENCOUNTER 2020-12-21 14:25 | Emergency (ER) | payer MEDICARE, MEDICAID, SELFPAY ==
[2020-12-21 14:33] VITALS: BP 145/94; PULSE 75; RESP 16; TEMP 36.5; O2SAT 95
--- NOTE | 2020-12-21 14:45 | ED.GENADUL_ITS ---
Discharge Plan Disposition Patient Disposition: HOME Condition: Stable Discharge Details Clinical Impression: Hypoglycemia Primary Care Provider: Татьяна Koehler ED Provider: Tika Garner Home Meds and New Rx's Prescriptions: Discontinued Basaglar Godwin U-100 Insulin 100 unit/mL (3 mL) insulin pen 22 unit SUBCUT DAILY RF: 0 Farxiga 5 mg tablet 5 mg PO DAILY RF: 0 No Action celecoxib [Celebrex] 400 mg capsule 400 mg PO DAILY RF: 0 hydrocodone-acetaminophen 10-325 mg tablet 1 tab PO Q6H PRNRF: 0 Dexilant 60 mg capsule,biphase delayed releas 60 mg PO DAILY RF: 0 cabergoline 0.5 mg tablet See Rx Instructions PO ONCE RF: 0 testosterone cypionate 100 mg/mL oil 50 mg IM QWEEK RF: 0 chlorthalidone 50 mg tablet 50 mg PO DAILY RF: 0 Incruse Ellipta 62.5 mcg/actuation blister with device 1 inh IH DAILY RF: 0 atorvastatin [Lipitor] 20 mg tablet 20 mg PO DAILY RF: 0 furosemide [Lasix] 20 mg tablet 40 mg PO DAILY PRNRF: 0 cyclobenzaprine 10 mg tablet 10 mg PO HS PRN PRNRF: 0 duloxetine 30 mg capsule,delayed release(DR/EC) 30 mg PO DAILY RF: 0 Vraylar 6 mg capsule 6 mg PO DAILY RF: 0 Narcan 4 mg/actuation Russell,Non-Aerosol 4 mg INTRANASAL Q2-3M PRNRF: 0 Ozempic 1 mg/dose (4 mg/3 mL) pen injector 1 mg SUBCUT Q7D RF: 0 aspirin 81 mg Tablet,Delayed Release (Dr/Ec) 81 mg PO DAILY RF: 0 methylphenidate HCl 20 mg tablet 20 mg PO TID RF: 0 isosorbide mononitrate 30 mg tablet extended release 24 hr 30 mg PO DAILY RF: 0 amlodipine 10 mg tablet 10 mg PO DAILY RF: 0 loratadine [Claritin] 10 mg Tablet 10 mg PO DAILY RF: 0 levalbuterol tartrate [Xopenex HFA] 45 mcg/actuation HFA aerosol inhaler 2 puff INHALATION Q6H PRN PRNRF: 0 Discharge Instructions Instructions: What to Do if Your Blood Sugar is Low (ED) Additional Instructions: Continue to hold Farxiga and Basaglar. Use the above methods if you feel shaky, lightheaded or unwell. Follow up with PCP and distuss further evaluation with her on Thursday. today you blood sugar was 93. Eat frequent small meals every 3-4 hours. Take Glucagon if sugar drops below 45. Follw up with PCP in 3-5 days, return if any worsening or concerns. Have friend or family stay with you this weekend. Referrals: Татьяна Koehler PA [Primary Care Provider] - 3 days Discharge Data Discharge Date/Time-TO BE ENTERED AT DEPARTURE: 12/21/20 16:02 Medical Decision Making 50-year-old male presents to ER chief complaint of low blood sugars for the last 3 days. He reports that he saw his primary care provider this morning and was told come in and get checked out. He reports that he has not taken his diabetic medications for the last 2 days. Today would be the third day. Reports yesterday his blood sugar at the lowest was 46. He has no complaints of pain pain. He does feel lightheaded and dizzy when you are low. Upon arrival to the ER his blood sugar is 93. She did eat this morning to he reports he took 2 tacos and a Peaches. He is reporting some nausea no vomiting no diarrhea no chest pain or shortness of breath no other associated symptoms. He is a former smoker. He has a past medical history of obesity, COPD, hypothyroidism, GERD, sleep apnea. He normally take KwikPen subcu injection, Ozempic,and Farxiga. 1453: Spoke with Dr. Koehler nurse office, was given glucagon samples, reccommend holding insulin. 1528: reviewed records, Dr. Koehler recommended to hold Farxiga and Basaglar, was given glucagon samples and instructed to stay with a friend over the weekend. Will discuss this with patient. At this time there is no emergent condition required to treat. Will re-iterate PCP's instructions and strict return instructions. HPI General Mode of arrival: ambulatory . Date/Time Provider Initiated Documentation: 12/21/20 14:30 . Limitations to Documentation: no limitations . Information obtained by: patient, RN notes reviewed and old records reviewed . HPI Narrative: 50-year-old male presents to ER chief complaint of low blood sugars for the last 3 days. He reports that he saw his primary care provider this morning and was told come in and get checked out. He reports that he has not taken his diabetic medications for the last 2 days. Today would be the third day. Reports yesterday his blood sugar at the lowest was 46. He has no complaints of pain pain. He does feel lightheaded and dizzy when you are low. Upon arrival to the ER his blood sugar is 93. She did eat this morning to he reports he took 2 tacos and a Peaches. He is reporting some nausea no vomiting no diarrhea no chest pain or shortness of breath no other associated symptoms. He is a former smoker. He has a past medical history of obesity, COPD, hypothyroidism, GERD, sleep apnea. He normally take KwikPen subcu injection, Ozempic,and Farxiga. Related Data Home Medications Medication Instructions Recorded Confirmed celecoxib 400 mg capsule 400 mg PO DAILY 01/11/18 12/21/20 Lasix 20 mg tablet 40 mg PO DAILY PRN tab-cap NS 08/18/18 12/21/20 atorvastatin 20 mg tablet 20 mg PO DAILY 08/18/18 12/21/20 cabergoline 0.5 mg tablet See Rx Instructions PO ONCE 08/18/18 12/21/20 chlorthalidone 50 mg tablet 50 mg PO DAILY 08/18/18 12/21/20 dexlansoprazole 60 mg 60 mg PO DAILY 08/18/18 12/21/20 capsule,biphase delayed release hydrocodone 10 mg-acetaminophen 1 tab PO Q6H PRN 08/18/18 12/21/20 325 mg tablet testosterone cypionate 100 mg/mL 50 mg IM QWEEK ml 08/18/18 12/21/20 intramuscular oil umeclidinium 62.5 mcg/actuation 1 inh IH DAILY 08/18/18 12/21/20 blister powder for inhalation aspirin 81 mg PO DAILY 10/08/18 12/21/20 amlodipine 10 mg PO DAILY 12/27/19 12/21/20 isosorbide mononitrate 30 mg PO DAILY 12/27/19 12/21/20 levalbuterol tartrate [Xopenex HFA] 2 puff INHALATION Q6H PRN PRN 12/27/19 12/21/20 loratadine [Claritin] 10 mg PO DAILY 12/27/19 12/21/20 methylphenidate HCl 20 mg PO TID 12/27/19 12/21/20 Narcan 4 mg INTRANASAL Q2-3M PRN 12/03/20 12/21/20 Ozempic 1 mg SUBCUT Q7D 12/03/20 12/21/20 Vraylar 6 mg PO DAILY 12/03/20 12/21/20 cyclobenzaprine 10 mg PO HS PRN PRN 12/03/20 12/21/20 duloxetine 30 mg PO DAILY 12/03/20 12/21/20 Allergies Allergy/AdvReac Type Severity Reaction Status Date / Time ibuprofen AdvReac Intermediate GI Bleeding Unverified 12/21/20 14:37 General Stated Complaint: Diabetes KIMBERLEE: 3 Review of Systems All systems reviewed & are unremarkable except as noted in HPI and below Constitutional Constitutional: Denies fever(s) ENT Ears, Nose, Mouth, and Throat: Reports dizziness Cardiovascular Cardiovascular: Denies chest pain and Reports dyspnea (At Baseline, Chronic nothing new) Respiratory Respiratory: Reports dyspnea (At Baseline, Chronic nothing new) Gastrointestinal Gastrointestinal: Denies abdominal pain, Denies change in bowel habits, Denies diarrhea, Reports nausea and Denies vomiting Genitourinary Genitourinary: Denies oliguria and Denies difficulty urinating Neurologic Neurologic: Reports as per HPI and Reports dizziness Endocrine Endocrine: Reports as per HPI and Reports other (Low BGL the last few days, ) PFSH Medical History Abnormal cardiovascular stress test Back muscle spasm Blind left eye Callus of foot Chronic low back pain Coccyx disorder COPD (chronic obstructive pulmonary disease) Cough Depression Gastroesophageal reflux disease Hyperprolactinemia Hypertension Hypogonadism Impaired fasting glucose Insomnia Leg edema Marital problems Morbid obesity Narcolepsy Neck pain Nocturia Organic impotence Skin lesion of foot Sleep apnea Smoker Social History Smoking/Tobacco Use Status: Current every day Tobacco Type: e-cigarettes Smoking risk assessment performed?: Yes Alcohol Intake: current Alcohol Intake frequency: holidays/special occasions only Alcohol type: hard liquor Drug use: Occasionally Substance use type: marijuana Details: About once a month, used last a couple weeks ago Do you feel safe at home: Yes Do you feel safe in your relationship?: Yes Exam Const General: cooperative and disheveled Nutritional Appearance: obese morbidly obese Orientation: alert, awake and oriented x3 Eyes Eyelids: eyelid abnormality (Left eye closed) Resp Effort & Inspection: able to speak in complete sentences, normal respiratory pattern, not labored and no nasal flaring Auscultation: clear to auscultation bilaterally, no rhonchi and no wheezes Cardio Heart Sounds: S1 normal, S2 normal, no murmurs and no rubs GI Inspection: large pannus and obesity Palpation: soft and nontender Neuro General: patient alert, patient awake, patient oriented x3 and gait normal Cranial Nerves: CN's II-XI intact bilaterally Cognition: normal cognition Course Vital Signs Vital signs: Vital Signs Temperature 36.5 C 12/21/20 14:33 Pulse 75 12/21/20 14:33 Respiratory Rate 16 12/21/20 14:33 Blood Pressure 145/94 H 12/21/20 14:33 Pulse Oximetry 95 12/21/20 14:33 Temperature 36.5 C 12/21/20 14:33 Temperature Source Skin 12/21/20 14:33 Pulse 75 12/21/20 14:33 Respiratory Rate 16 12/21/20 14:33 Respiratory Effort Non-Labored 12/21/20 14:33 Blood Pressure 145/94 H 12/21/20 14:33 Blood Pressure Position Sitting 12/21/20 14:33 Pulse Oximetry 95 12/21/20 14:33 Pain Level 0 12/21/20 14:33
[2020-12-21 16:06] VITALS: BP 139/93; PULSE 74; RESP 18; TEMP 37
== END 2020-12-21 16:02 | disposition home or self-care (01) ==
PROVIDERS: Emergency Provider Registered Nurse Emergency; PCP Physician Assistant Medical
DX: E11.649 Type 2 diabetes mellitus with hypoglycemia without coma (principal)
CPT/HCPCS: 36416; 82962; 99282; 99283

== ENCOUNTER 2021-02-06 14:20 | Outpatient (REF) | payer MEDICARE, MEDICAID, SELFPAY ==
[2021-02-06 13:08] LABS: Abs Immature Grans 0.03 10^3/uL (0.0-0.06); Absolute Basophil Count 0.03 10^3/uL (0.0-0.2); Absolute Eosinophil Count 0.13 10^3/uL (0.0-0.7); Absolute Lymphocyte Count 1.46 10^3/uL (1.2-3.4); Absolute Monocyte Count 0.55 10^3/uL (0.1-0.8); Absolute Neutrophil Count 5.45 10^3/uL (1.2-6.7); Basophils % 0.4; Eosinophils % 1.7; HCT 44.3 % (40.0-50.0); HGB 14.1 g/dL (13.5-17.5); Immature Grans % 0.4; Lymphocytes % 19.1; MCH 27.3 pg (27.0-33.0); MCHC 31.8 % (32.0-36.0); MCV 85.7 fL (80-95); MPV 9.8 fL (8.0-11.0); Monocytes % 7.2; Neutrophils % 71.2; Nucleated RBC 0 %; Platelet Count 651 10^3/uL (130-400); RBC 5.17 10^6/uL (4.36-5.78); RDW 14.6 % (11.8-14.1); RDW-SD 46.5 fL; WBC 7.65 10^3/uL (4.4-10.8)
[2021-02-06 13:15] LABS: BUN 12 mg/dL (7-18); CREATININE 0.8 mg/dL (0.70-1.30); Calcium 8.5 mg/dL (8.5-10.1); Chloride 106 mmol/L (98-107); Creatine Kinase 62 U/L (39-308); Glucose 124 mg/dL (74-106); Magnesium 1.9 mg/dL (1.8-2.4); Potassium 4.4 mmol/L (3.5-5.1); Sodium 141 mmol/L (136-145)
[2021-02-06 13:40] LABS: Hemoglobin A1C 5.9 % (<5.7)
== END 2021-02-06 14:21 | disposition home or self-care (01) ==
LOC: NCHCN 14:20
PROVIDERS: PCP Physician Assistant Medical; Visit Provider Physician Assistant Medical
DX: R73.09 Other abnormal glucose; M79.18 Myalgia, other site
CPT/HCPCS: 80048; 82550; 83036; 83735; 85025

== ENCOUNTER 2021-03-08 16:17 | Outpatient (REF) | payer MEDICARE, MEDICAID, SELFPAY ==
[2021-03-14 07:01] LABS: Methylphenidate 10 ng/mL (Cutoff: 10); Ritalinic Acid 2295 ng/mL (Cutoff: 50)
== END 2021-03-08 16:18 | disposition home or self-care (01) ==
LOC: NCHCN 16:17
PROVIDERS: PCP Physician Assistant Medical; Visit Provider Physician Assistant Medical
DX: Z02.89 Encounter for other administrative examinations (principal)
CPT/HCPCS: 80360

== ENCOUNTER 2021-03-13 15:57 | Outpatient (REF) | payer MEDICARE, MEDICAID, SELFPAY ==
--- OUTSIDE RECORDS SUMMARY | 2021-03-13 16:02 | XMS_ITS ---
:1970 Author Care Team Providers Name Role Phone SHARLA MARY Primary Care Provider [phone] [facility] OTHER [phone] Allergies Code Code System Name Reaction Severity Status Onset 5640 RxNorm Ibuprofen ? ? Active ? Medications Name Status Start Date Stop Date ? ? Ambien 10 mg tablet Completed 07/31/2008 07/31/2008 1 (one) Tablet: at bedtime, as needed amitriptyline 50 mg tablet Unknown 06/28/2008 Not a vailable 2 (two) Tablet: at bedtime Axert 12.5 mg tablet Completed 11/21/2008 11/26/2015 1 daily as needed for headache Tablet: may repeat in 2 hours if needed Bactrim DS 800 mg-160 mg tablet Completed 05/21/2009 05/31/2009 1 (one) Tablet: Twice daily cabergoline Active ? Not available 0.5mg- 2tabs twice a week Celebrex 400 mg capsule Active ? Not avai lable Take 1 capsule every day by oral route. Celexa 40 mg tablet Unknown 11/22/2007 Not availabl e 1 (one) Tablet: daily Chantix Continuing Month Box 1 mg tablet Unknown 008 Not available 1 Tablet: Daily chlorthalidone Active ? Not available citalopram Active ? Not available 20mg- 1.5tabs daily Dexilant Active ? Not available 60mg daily diltiazem CD 120 mg capsule,extended release 24 hr Completed ? 02/01/2019 TAKE 1 CAPSULE (120 MG) BY ORAL ROUTE ONCE DAILY doxepin 100 mg capsule Unknown 11/22/2007 Not avail able hydrocodone-acetaminophen Active ? Not av ailable 10-325mg QID Inderal LA 80 mg capsule,extended release Completed 200811/26/2015 1 (one) Capsule ER 24HR: daily Latuda Completed ? 02/01/2019 lisinopril 10 mg tablet Completed 05/11/2009 11/26/19 16 1 (one) Tablet: daily Lyrica Active ? Not available methylphenidate Active ? Not available 20mg- 3tabs daily Neurontin Completed ? 02/01/2019 600mg TID Nexium 40 mg capsule,delayed release Completed 05/11/2009 11/26/2015 1 (one) Cap DR: daily Norvasc 5 mg tablet Unknown 11/22/2007 Not availabl e 2 (two) Tablet: q hs;1/2 tablet q am permethrin 5 % topical cream Completed 10/23/2008 1 Cream: As directed prednisone 20 mg tablet Completed 01/26/2004 05/14/19 06 3 (three) Tablet: daily Prevacid 30 mg capsule,delayed release Completed 4 03/12/2004 1 (one) Cap DR: daily Prilosec 40 mg capsule,delayed release Unknown 8 Not available 1 (one) Capsule DR: Daily propranolol 20 mg tablet Unknown 11/22/2007 Not luci ilable 1 (one) Tablet: bID Protonix 40 mg tablet,delayed release Completed 11/22/2007 11/22/[address]: daily Provigil 200 mg tablet Completed 12/20/2007 8 1 (one) Tablet: daily Prozac 40 mg capsule Completed 06/28/2008 11/26/2015 2 (two) Capsule: daily sildenafil Completed ? 10/12/2017 20mg- 1-2 tabs PRN Spiriva Respimat Completed ? 02/01/2019 Topamax 100 mg tablet Completed 05/21/2009 05/21/2009 1 at bedtime Tablet: increase by 50 mg every three days to 3 at bedtime Topamax 200 mg tablet Unknown 11/25/2007 Not availa ble 1 (one) Tablet: daily Valium Active ? Not available 10mg TID Wellbutrin SR 150 mg tablet, 12 hr sustained-release Completed 10/23/2008 11/29/2015 2 (two) Tablet ER 12HR: daily Zithromax Z-Noman 250 mg tablet Completed 02/28/2008 zonisamide Active ? Not available 100mg daily Problems Name Status Onset Date Source ? Hypoxemia Active 02/01/2019 ? Hyperpituitarism Active ? History Hyperlipidemia Active ? History Impotence Active ? History Nicotine Dependence Active ? History Depressive Disorder Active ? History Obstructive Sleep Apnea Syndrome Active ? History Migraine Active ? History Migraine without Aura Active ? History Hypertensive Disorder Active ? History Galactorrhea Not Associated with Active ? History Childbirth Atopic Dermatitis Active ? History Sleep Disorder Active ? History Hypersomnia with Sleep Apnea Active ? His tory Disorder of Hyperalimentation Active ? Hi story Headache Active ? History Apnea Active ? History Adult Health Examination Active ? History Procedure by Method Unknown ? History Procedures None recorded. Results Lab Results None recorded. Past Encounters None recorded. Social History Tobacco Smoking Status Former Smoker Notes: quit 3 weeks ago, 2-3ppd prior Vaccine List Vaccine Type influenza, seasonal, injectable, preserv ative free 11/22/2007 pneumococcal polysaccharide PPV23 03/03/2012 Tdap 07/15/2011 Plan of Care Reminders Provider Appointments None ? ? recorded. Lab None ? ? recorded. Referral None ? ? recorded. Procedures None ? ? recorded. Surgeries None ? ? recorded. Imaging None ? ? recorded. Vitals 02/01/2019 12:30PM Office 30 Height Weight BMI Blood Pressure 175.26 cm 209.02 kg 68 kg/m2 120/86 mm[Hg] 10/12/2017 09:00AM Office 30 Height Weight BMI Blood Pressure 175.26 cm 195.68 kg 63.7 kg/m2 140/88 mm[Hg] 04/14/2017 Height Weight Blood Pressure 170.18 cm 175.99 kg 120/78 mm[Hg] 03/19/2017 Height Weight Blood Pressure 170.18 cm 179.62 kg 156/96 mm[Hg] 01/30/2016 Height Weight Blood Pressure 170.18 cm 183.42 kg 138/88 mm[Hg] 11/29/2015 Height Weight 170.18 cm 163.75 kg 05/21/2009 Blood Pressure 138/82 mm[Hg] 05/11/2009 Blood Pressure 138/86 mm[Hg] 01/12/2009 Blood Pressure 130/80 mm[Hg] 10/23/2008 Blood Pressure 130/82 mm[Hg] 09/21/2008 Blood Pressure 126/84 mm[Hg] 08/18/2008 Blood Pressure 138/90 mm[Hg] 07/31/2008 Blood Pressure 120/82 mm[Hg] 06/28/2008 Blood Pressure (1) 136/96 mm[Hg] (2) 128/90 mm[Hg] (3) 124/90 mm[Hg] 03/30/2008 Blood Pressure (1) 136/90 mm[Hg] (2) 138/96 mm[Hg] 02/28/2008 Blood Pressure 130/92 mm[Hg] 01/27/2008 Blood Pressure (1) 138/100 mm[Hg] (2) 144/100 mm[Hg] 12/20/2007 Blood Pressure 124/80 mm[Hg] 11/22/2007 Weight Blood Pressure 158.76 kg (1) 134/94 mm[Hg] (2) 142/100 mm[Hg] 06/19/2005 Weight Blood Pressure 154.22 kg 144/94 mm[Hg] 06/06/2004 Weight Blood Pressure 138.8 kg 134/84 mm[Hg] 01/26/2004 Weight Blood Pressure 127.01 kg 118/88 mm[Hg]
[2021-03-15 08:06] LABS: COVID-19 RT-PCR UVMMC Result Negative (Negative)
== END 2021-03-13 15:58 | disposition home or self-care (01) ==
LOC: NCHCN 15:57
PROVIDERS: PCP Physician Assistant Medical; Visit Provider Nurse Practitioner Family
DX: Z20.822 Contact with and (suspected) exposure to COVID-19 (principal); R05.8 Other specified cough
CPT/HCPCS: U0003; U0005

== ENCOUNTER 2021-05-21 02:45 | Outpatient (CLI) | payer MEDICARE, MEDICAID, SELFPAY | END 2021-05-21 02:46 | disposition home or self-care (01) | LOC: LBO 02:46 | PROVIDERS: PCP Physician Assistant Medical; Visit Provider Physician Assistant Medical ==

== ENCOUNTER 2021-05-29 02:53 | Outpatient (CLI) | payer MEDICARE, MEDICAID, SELFPAY ==
[2021-05-29 12:09] LABS: Hemoglobin A1C 6.1 % (<5.7)
[2021-05-30 09:05] LABS: Insulin 50.7 uIU/mL (<29.0)
[2021-05-30 16:19] LABS: C-Peptide 7.1 ng/mL (1.1 - 4.4)
== END 2021-05-29 02:54 | disposition home or self-care (01) ==
LOC: LBO 02:53
PROVIDERS: PCP Physician Assistant Medical; Visit Provider Physician Assistant Medical
DX: E11.649 Type 2 diabetes mellitus with hypoglycemia without coma
CPT/HCPCS: 36415; 83036; 83525; 84681

== ENCOUNTER 2021-06-18 18:40 | Outpatient (REF) | payer MEDICARE, MEDICAID, SELFPAY ==
[2021-06-18 20:20] LABS: C-Reactive Protein 1.01 mg/dL (0.0-0.3)
[2021-06-18 20:45] LABS: ESR 22 mm/hr (0-20)
[2021-06-20 10:39] LABS: Lyme Ab w Rflx to Lyme Confirm Negative (Negative)
[2021-06-20 15:09] LABS: ANA Interpretation Negative (Negative)
[2021-06-21 11:15] LABS: c-ANCA Negative (Negative); p-ANCA Negative (Negative)
[2021-06-21 22:21] LABS: Anaplasma phagocytophilum Negative (Negative); B. miyamotoi PCR Negative (Negative); Babesia divergens/MO-1 Negative (Negative); Babesia duncani Negative (Negative); Babesia microti Negative (Negative); Ehrlichia chaffeensis Negative (Negative); Ehrlichia ewingii/canis Negative (Negative); Ehrlichia muris eauclairensis Negative (Negative)
== END 2021-06-18 18:41 | disposition home or self-care (01) ==
LOC: NCHCN 18:40
PROVIDERS: PCP Physician Assistant Medical; Visit Provider Physician Assistant Medical
DX: M79.18 Myalgia, other site (principal)
CPT/HCPCS: 85652; 87798; 86038; 86140; 86255; 86618

== ENCOUNTER 2021-08-19 17:48 | Outpatient (REF) | payer MEDICARE, MEDICAID, SELFPAY | END 2021-08-19 17:49 | disposition home or self-care (01) | LOC: NCHCN 17:48 | PROVIDERS: PCP Physician Assistant Medical; Visit Provider Nurse Practitioner Family | DX: N39.0 Urinary tract infection, site not specified (principal) | CPT/HCPCS: 87077; 87086; 87186 ==

== ENCOUNTER 2021-10-27 14:40 | Outpatient (REF) | payer MEDICARE, MEDICAID, SELFPAY ==
[2021-10-27 17:30] LABS: Bilirubin Negative (Negative); Blood Negative (Negative); Clarity Turbid (Clear); Glucose Negative (Negative); Ketones Negative (Negative); Leukocyte Esterase Negative (Negative); Nitrite Positive (Negative); Specific Gravity >= 1.030 (1.005-1.025)
[2021-10-27 18:00] LABS: C & S Indicated? Yes; Crystals Many Amorphous HPF (Negative)
== END 2021-10-27 14:41 | disposition home or self-care (01) ==
LOC: LBN 14:40
PROVIDERS: PCP Physician Assistant Medical; Visit Provider Nurse Practitioner Family
DX: N39.0 Urinary tract infection, site not specified (principal)
CPT/HCPCS: 87077; 81003; 81015; 87086; 87186

== ENCOUNTER 2021-11-27 11:42 | Outpatient (REF) | payer MEDICARE, MEDICAID, SELFPAY ==
[2021-11-27 14:56] LABS: Abs Immature Grans 0.08 10^3/uL (0.0-0.06); Absolute Basophil Count 0.03 10^3/uL (0.0-0.2); Absolute Eosinophil Count 0.32 10^3/uL (0.0-0.7); Absolute Lymphocyte Count 1.78 10^3/uL (1.2-3.4); Absolute Monocyte Count 0.66 10^3/uL (0.1-0.8); Absolute Neutrophil Count 6.42 10^3/uL (1.2-6.7); Basophils % 0.3; Eosinophils % 3.4; HCT 47.4 % (40.0-50.0); HGB 15.1 g/dL (13.5-17.5); Immature Grans % 0.9; Lymphocytes % 19.2; MCH 26.5 pg (27.0-33.0); MCHC 31.9 % (32.0-36.0); MCV 83 fL (80-95); MPV 9.8 fL (8.0-11.0); Monocytes % 7.1; Neutrophils % 69.1; Platelet Count 709 10^3/uL (130-400); RBC 5.69 10^6/uL (4.36-5.78); RDW 15.8 % (11.8-14.1); RDW-SD 47.5 fL; WBC 9.29 10^3/uL (4.4-10.8)
[2021-11-27 15:35] LABS: ALT 52 U/L (16-63); AST 34 U/L (15-37); Albumin 3.9 g/dL (3.4-5.0); Alkaline Phosphatase 105 U/L (46-116); Anion Gap 10.7 mmol/L (3-11); BUN 15 mg/dL (7-18); Bilirubin, Total 0.7 mg/dL (0.2-1.0); CO2 24.3 mmol/L (21.0-32.0); CREATININE 0.9 mg/dL (0.70-1.30); Calcium 9.2 mg/dL (8.5-10.1); Chloride 103 mmol/L (98-107); Estimated GFR 102.76 (mL/min/1.73m2); Glucose 89 mg/dL (74-106); Magnesium 1.8 mg/dL (1.8-2.4); Potassium 4.3 mmol/L (3.5-5.1); Sodium 138 mmol/L (136-145); Total Protein 7.8 g/dL (6.4-8.2)
[2021-11-27 15:42] LABS: Hemoglobin A1C 5.9 % (<5.7)
== END 2021-11-27 11:43 | disposition home or self-care (01) ==
LOC: NCHCN 11:42
PROVIDERS: PCP Physician Assistant Medical; Visit Provider Physician Assistant Medical
DX: E11.9 Type 2 diabetes mellitus without complications (principal); G43.909 Migraine, unspecified, not intractable, without status migrainosus
CPT/HCPCS: 80053; 83036; 83735; 85025

== ENCOUNTER 2021-12-10 13:19 | Outpatient (REF) | payer MEDICARE, MEDICAID, SELFPAY ==
[2021-12-10 15:32] LABS: Abs Immature Grans 0.07 10^3/uL (0.0-0.06); Absolute Basophil Count 0.06 10^3/uL (0.0-0.2); Absolute Eosinophil Count 0.27 10^3/uL (0.0-0.7); Absolute Neutrophil Count 6.73 10^3/uL (1.2-6.7); Basophils % 0.6; Eosinophils % 2.9; HCT 46.9 % (40.0-50.0); HGB 15.5 g/dL (13.5-17.5); Immature Grans % 0.8; Lymphocytes % 17.1; MCH 26.8 pg (27.0-33.0); MCV 81 fL (80-95); MPV 10.1 fL (8.0-11.0); Monocytes % 6.4; Neutrophils % 72.2; RBC 5.79 10^6/uL (4.36-5.78); RDW 15.6 % (11.8-14.1); RDW-SD 45.8 fL; WBC 9.33 10^3/uL (4.4-10.8)
[2021-12-10 15:42] LABS: ALT 56 U/L (16-63); AST 39 U/L (15-37); Albumin 3.9 g/dL (3.4-5.0); Alkaline Phosphatase 104 U/L (46-116); Anion Gap 8.5 mmol/L (3-11); BUN 14 mg/dL (7-18); Bilirubin, Total 0.8 mg/dL (0.2-1.0); CO2 26.5 mmol/L (21.0-32.0); CREATININE 0.9 mg/dL (0.70-1.30); Calcium 9.2 mg/dL (8.5-10.1); Chloride 103 mmol/L (98-107); Creatine Kinase 453 U/L (39-308); Estimated GFR 102.76 (mL/min/1.73m2); Glucose 100 mg/dL (74-106); Magnesium 1.8 mg/dL (1.8-2.4); Potassium 4.2 mmol/L (3.5-5.1); Sodium 138 mmol/L (136-145)
[2021-12-10 16:09] LABS: Platelet Count 762 10^3/uL (130-400)
== END 2021-12-10 13:20 | disposition home or self-care (01) ==
LOC: NCHCN 13:19
PROVIDERS: PCP Physician Assistant Medical; Visit Provider Physician Assistant Medical
DX: M79.18 Myalgia, other site (principal)
CPT/HCPCS: 80053; 82550; 83735; 85025

== ENCOUNTER 2021-12-27 13:05 | Outpatient (REF) | payer MEDICARE, MEDICAID, SELFPAY ==
[2021-12-27 15:41] LABS: Abs Immature Grans 0.07 10^3/uL (0.0-0.06); Absolute Basophil Count 0.04 10^3/uL (0.0-0.2); Absolute Eosinophil Count 0.34 10^3/uL (0.0-0.7); Absolute Lymphocyte Count 1.37 10^3/uL (1.2-3.4); Absolute Monocyte Count 0.55 10^3/uL (0.1-0.8); Absolute Neutrophil Count 5.54 10^3/uL (1.2-6.7); Basophils % 0.5; Eosinophils % 4.3; HCT 47.4 % (40.0-50.0); HGB 14.8 g/dL (13.5-17.5); Immature Grans % 0.9; Lymphocytes % 17.3; MCH 26.2 pg (27.0-33.0); MCHC 31.2 % (32.0-36.0); MCV 84 fL (80-95); MPV 9.9 fL (8.0-11.0); RBC 5.65 10^6/uL (4.36-5.78); RDW 15.4 % (11.8-14.1); RDW-SD 47.1 fL; WBC 7.91 10^3/uL (4.4-10.8)
[2021-12-27 15:58] LABS: Diff Comment Diff Reviewed; Platelet Count 702 10^3/uL (130-400); RBC Morphology Normal
[2021-12-27 16:18] LABS: Creatine Kinase 265 U/L (39-308)
== END 2021-12-27 13:06 | disposition home or self-care (01) ==
LOC: NCHCN 13:05
PROVIDERS: PCP Physician Assistant Medical; Visit Provider Physician Assistant Medical
DX: R74.8 Abnormal levels of other serum enzymes (principal); D75.839 Thrombocytosis, unspecified
CPT/HCPCS: 82550; 85025

== ENCOUNTER 2022-01-14 03:01 | Outpatient (CLI) | payer MEDICARE, MEDICAID, SELFPAY ==
[2022-01-14 13:32] LABS: Abs Immature Grans 0.09 10^3/uL (0.0-0.06); Absolute Basophil Count 0.05 10^3/uL (0.0-0.2); Absolute Eosinophil Count 0.15 10^3/uL (0.0-0.7); Absolute Lymphocyte Count 1.48 10^3/uL (1.2-3.4); Absolute Monocyte Count 0.53 10^3/uL (0.1-0.8); Absolute Neutrophil Count 7.49 10^3/uL (1.2-6.7); Basophils % 0.5; Eosinophils % 1.5; HCT 45.4 % (40.0-50.0); HGB 14.8 g/dL (13.5-17.5); Immature Grans % 0.9; Lymphocytes % 15.1; MCH 26.8 pg (27.0-33.0); MCHC 32.6 % (32.0-36.0); MCV 82 fL (80-95); MPV 9.3 fL (8.0-11.0); Monocytes % 5.4; Neutrophils % 76.6; RBC 5.53 10^6/uL (4.36-5.78); RDW 15.4 % (11.8-14.1); RDW-SD 46.3 fL; WBC 9.79 10^3/uL (4.4-10.8)
[2022-01-14 13:55] LABS: Platelet Count 797 10^3/uL (130-400)
[2022-01-14 13:56] LABS: Diff Comment PLT Morph Reviewed; RBC Morphology Normal
[2022-01-14 13:59] LABS: ALT 54 U/L (16-63); AST 27 U/L (15-37); Albumin 3.7 g/dL (3.4-5.0); Alkaline Phosphatase 110 U/L (46-116); Anion Gap 8.2 mmol/L (3-11); BUN 17 mg/dL (7-18); Bilirubin, Total 0.6 mg/dL (0.2-1.0); CO2 25.8 mmol/L (21.0-32.0); CREATININE 1.1 mg/dL (0.70-1.30); Calcium 8.9 mg/dL (8.5-10.1); Chloride 103 mmol/L (98-107); Estimated GFR 80.77 (mL/min/1.73m2); FREE T4 0.82 ng/dL (0.76-1.46); Glucose 100 mg/dL (74-106); Potassium 3.7 mmol/L (3.5-5.1); Sodium 137 mmol/L (136-145); TSH 1.81 uIU/mL (0.36-3.74); Total Protein 7.6 g/dL (6.4-8.2)
[2022-01-14 14:13] LABS: Calculated LDL 117 mg/dL (<100); Cholesterol 174 mg/dL (<200); HDL Cholesterol 32 mg/dL (40-60); Triglyceride 127 mg/dL (<150)
[2022-01-14 14:23] LABS: Hemoglobin A1C 6.4 % (<5.7)
[2022-01-15 10:49] LABS: Prolactin 12.7 ng/mL (2.1-17.7)
[2022-01-15 15:07] LABS: PSA, Ultrasensitive 1.1 ng/mL (<= 3.5)
[2022-01-20 14:00] LABS: Testosterone, Free 11.1 ng/dL (4.06-15.6); Testosterone, Total 407 ng/dL (240-950)
== END 2022-01-14 03:02 | disposition home or self-care (01) ==
PROVIDERS: PCP Physician Assistant Medical; Visit Provider Internal Medicine Endocrinology, Diabetes & Metabolism
DX: E29.1 Testicular hypofunction (principal); D35.2 Benign neoplasm of pituitary gland; E55.9 Vitamin D deficiency, unspecified; E11.65 Type 2 diabetes mellitus with hyperglycemia; Z79.4 Long term (current) use of insulin; R35.0 Frequency of micturition
CPT/HCPCS: 36415; 80053; 80061; 82306; 84153; 84402; 84403; 82043; 82570; 83036; 84146; 84439; 84443; 85025

== ENCOUNTER 2022-03-03 10:43 | Outpatient (CLI) | payer MEDICARE, MEDICAID, SELFPAY | END 2022-03-03 10:44 | disposition home or self-care (01) | LOC: DI.CARD 10:45 | PROVIDERS: PCP Physician Assistant Medical; Visit Provider Internal Medicine Cardiovascular Disease | CPT/HCPCS: 93010 ==

== ENCOUNTER 2022-04-30 01:47 | Outpatient (CLI) | payer MEDICARE, MEDICAID, SELFPAY ==
--- NOTE | 2022-04-30 | DI.RAD_ITS ---
Exam(s) XR HIP LT COMPLETE AP PELVIS EXAM: XR HIP LT COMPLETE AP PELVIS INDICATION: LT HIP PAIN, M25.552. COMPARISON: CR LUMBAR SPINE COMPLETE from 09/03/2011 CR SACRUM COCCYX from 07/11/2013 CR LUMBAR SPINE COMPLETE from 01/03/2014 CT LUMBAR SPINE SI JOINTS WO from 11/27/[address] CHEST PE CTA from 12/03/2020 TECHNIQUE: 2D digital imaging was performed. Two views. FINDINGS: Exam limited by patient body habitus. Images are under penetrated. There is a pin in the lower left ilium. There is mild narrowing of the left superior hip joint space. Appears to be slight deformit y of the femoral head and neck versus projection. Right hip joint space is maintained. The SI joint s and pubic symphysis are not widened. IMPRESSION: Limited exam. Mild degenerative changes of the superior left hip joint space could. Question of a chronic appearing deformity of the femoral head versus projection. DATA REPOSITORY: RADIATION DOSE DELIVERED:
== END 2022-04-30 02:07 ==
LOC: DI 01:47
PROVIDERS: PCP Physician Assistant Medical; Visit Provider Physician Assistant Medical
DX: M16.12 Unilateral primary osteoarthritis, left hip (principal)
CPT/HCPCS: 73502

== ENCOUNTER 2022-08-05 18:06 | Outpatient (REF) | payer MEDICARE, MEDICAID, SELFPAY ==
[2022-08-05 20:28] LABS: Abs Immature Grans 0.07 10^3/uL (0.0-0.06); Absolute Basophil Count 0.05 10^3/uL (0.0-0.2); Absolute Eosinophil Count 0.15 10^3/uL (0.0-0.7); Absolute Lymphocyte Count 1.26 10^3/uL (1.2-3.4); Absolute Monocyte Count 0.51 10^3/uL (0.1-0.8); Absolute Neutrophil Count 5.29 10^3/uL (1.2-6.7); Basophils % 0.7; HCT 45.9 % (40.0-50.0); HGB 14.7 g/dL (13.5-17.5); Lymphocytes % 17.2; MCH 26.4 pg (27.0-33.0); MCV 82 fL (80-95); Neutrophils % 72.1; Platelet Count 627 10^3/uL (130-400); RBC 5.57 10^6/uL (4.36-5.78); RDW-SD 45.1 fL; WBC 7.33 10^3/uL (4.4-10.8)
[2022-08-05 20:43] LABS: ALT 71 U/L (16-63); AST 46 U/L (15-37); Albumin 3.7 g/dL (3.4-5.0); Alkaline Phosphatase 116 U/L (46-116); Anion Gap 6.8 mmol/L (3-11); BUN 8 mg/dL (7-18); Bilirubin, Total 0.7 mg/dL (0.2-1.0); CO2 26.2 mmol/L (21.0-32.0); Calcium 8.8 mg/dL (8.5-10.1); Chloride 104 mmol/L (98-107); Creatine Kinase 118 U/L (39-308); Estimated GFR 90.56 (mL/min/1.73m2); Glucose 89 mg/dL (74-106); Potassium 4.8 mmol/L (3.5-5.1); Sodium 137 mmol/L (136-145); Total Protein 7.3 g/dL (6.4-8.2)
[2022-08-05 20:49] LABS: Hemoglobin A1C 6.3 % (<5.7)
[2022-08-09 12:33] LABS: Codeine Negative ng/mL (Cutoff: 25); Dihydrocodeine 427 ng/mL (Cutoff: 25); Hydrocodone 109 ng/mL (Cutoff: 25); Hydromorphone 79 ng/mL (Cutoff: 25); Morphine Negative ng/mL (Cutoff: 25); Naloxone Negative ng/mL (Cutoff: 25); Norhydrocodone 431 ng/mL (Cutoff: 25); Noroxymorphone 47 ng/mL (Cutoff: 25); Opiates Interpretation Positive.
[2022-08-09 15:33] LABS: Methylphenidate Negative ng/mL (Cutoff: 10); Ritalinic Acid 93 ng/mL (Cutoff: 50)
== END 2022-08-05 18:07 | disposition home or self-care (01) ==
LOC: NCHCN 18:06
PROVIDERS: PCP Physician Assistant Medical; Visit Provider Physician Assistant Medical
DX: E11.9 Type 2 diabetes mellitus without complications (principal); R74.8 Abnormal levels of other serum enzymes; D75.839 Thrombocytosis, unspecified; I10 Essential (primary) hypertension
CPT/HCPCS: 80053; 80360; 80361; 80362; 80365; 82550; 83036; 85025

== ENCOUNTER 2022-09-12 14:54 | Outpatient (REF) | payer MEDICARE, MEDICAID, SELFPAY ==
[2022-09-17 10:10] LABS: Codeine Negative ng/mL (Cutoff: 25); Dihydrocodeine Negative ng/mL (Cutoff: 25); Hydrocodone Negative ng/mL (Cutoff: 25); Hydromorphone Negative ng/mL (Cutoff: 25); Morphine Negative ng/mL (Cutoff: 25); Naloxone Negative ng/mL (Cutoff: 25); Norhydrocodone Negative ng/mL (Cutoff: 25); Noroxycodone 84 ng/mL (Cutoff: 25); Noroxymorphone Negative ng/mL (Cutoff: 25); Opiates Interpretation Positive.
[2022-09-18 05:58] LABS: 2-OH-Ethyl-Flurazepam Negative ng/mL (Cutoff: 10); 7-NH-Clonazepam Negative ng/mL (Cutoff: 10); 7-NH-Flunitrazepam Negative ng/mL (Cutoff: 10); Alpha OH-Alprazolam Negative ng/mL (Cutoff: 10); Alpha-OH Midazolam Negative ng/mL (Cutoff: 10); Alpha-OH-Triazolam Negative ng/mL (Cutoff: 10); Alprazolam Negative ng/mL (Cutoff: 10); Benzodiazepines Interpretation Negative.; Chlordiazepoxide Negative ng/mL (Cutoff: 10); Clobazam Negative ng/mL (Cutoff: 10); Clonazepam Negative ng/mL (Cutoff: 10); Diazepam Negative ng/mL (Cutoff: 10); Flurazepam Negative ng/mL (Cutoff: 10); Lorazepam Negative ng/mL (Cutoff: 10); Midazolam Negative ng/mL (Cutoff: 10); N-Desmethylclobazam Negative ng/mL (Cutoff: 10); Prazepam Negative ng/mL (Cutoff: 10); Temazepam Negative ng/mL (Cutoff: 10); Triazolam Negative ng/mL (Cutoff: 10); Zolpidem Carboxylic acid Negative ng/mL (Cutoff: 10)
[2022-09-19 15:15] LABS: Methylphenidate Negative ng/mL (Cutoff: 10); Ritalinic Acid 287 ng/mL (Cutoff: 50)
[2022-09-19 22:20] LABS: Buprenorphine Negative ng/mL (Cutoff: 5.0); Norbuprenorphine Negative ng/mL (Cutoff: 2.5)
== END 2022-09-12 14:55 | disposition home or self-care (01) ==
LOC: NCHCN 14:54
PROVIDERS: PCP Physician Assistant Medical; Visit Provider Physician Assistant Medical
DX: Z02.89 Encounter for other administrative examinations (principal)
CPT/HCPCS: 80348; 80360; 80361; 80362; 80365; 80346

== ENCOUNTER 2022-10-15 13:04 | Outpatient (REF) | payer MEDICARE, MEDICAID, SELFPAY ==
[2022-10-21 06:13] LABS: Methylphenidate 500 ng/mL (Cutoff: 10); Ritalinic Acid 1250 ng/mL (Cutoff: 50)
[2022-10-22 12:09] LABS: Codeine Negative ng/mL (Cutoff: 25); Dihydrocodeine Negative ng/mL (Cutoff: 25); Hydrocodone Negative ng/mL (Cutoff: 25); Hydromorphone Negative ng/mL (Cutoff: 25); Morphine Negative ng/mL (Cutoff: 25); Naloxone Negative ng/mL (Cutoff: 25); Norhydrocodone Negative ng/mL (Cutoff: 25); Noroxycodone Negative ng/mL (Cutoff: 25); Noroxymorphone Negative ng/mL (Cutoff: 25); Opiates Interpretation Negative.
== END 2022-10-15 13:05 | disposition home or self-care (01) ==
LOC: NCHCN 13:04
PROVIDERS: PCP Physician Assistant Medical; Visit Provider Physician Assistant Medical
DX: Z79.899 Other long term (current) drug therapy (principal)
CPT/HCPCS: 80360; 80361; 80362; 80365

== ENCOUNTER 2023-04-01 18:07 | Outpatient (REF) | payer MEDICARE, MEDICAID, SELFPAY ==
[2023-04-01 20:25] LABS: HCT 49.2 % (40.0-50.0); HGB 15.7 g/dL (13.5-17.5); MCH 26.1 pg (27.0-33.0); MCHC 31.9 % (32.0-36.0); MCV 82 fL (80-95); MPV 9.8 fL (8.0-11.0); RBC 6.01 10^6/uL (4.36-5.78); RDW 15.7 % (11.8-14.1); RDW-SD 46.6 fL; WBC 8.44 10^3/uL (4.4-10.8)
[2023-04-01 21:02] LABS: Vitamin D 25 Total 34.4 ng/mL (30-100)
[2023-04-01 21:13] LABS: Hemoglobin A1C 6.2 % (<5.7)
[2023-04-01 21:14] LABS: ALT 63 U/L (16-63); AST 35 U/L (15-37); Albumin 3.7 g/dL (3.4-5.0); Alkaline Phosphatase 102 U/L (46-116); Anion Gap 7.6 mmol/L (3-11); BUN 11 mg/dL (7-18); Bilirubin, Total 0.5 mg/dL (0.2-1.0); CO2 27.4 mmol/L (21.0-32.0); CREATININE 0.9 mg/dL (0.70-1.30); Chloride 104 mmol/L (98-107); Estimated GFR 102.12 (mL/min/1.73m2); FREE T4 0.87 ng/dL (0.76-1.46); Glucose 135 mg/dL (74-106); Potassium 4.4 mmol/L (3.5-5.1); Sodium 139 mmol/L (136-145); TSH 2.54 uIU/mL (0.36-3.74); Total Protein 7.4 g/dL (6.4-8.2)
[2023-04-01 21:41] LABS: Platelet Count 810 10^3/uL (130-400)
[2023-04-03 17:39] LABS: Prolactin 8.9 ng/mL (2.1-17.7)
[2023-04-11 12:35] LABS: Testosterone, Free 21.9 ng/dL (4.06-15.6); Testosterone, Total 844 ng/dL (240-950)
== END 2023-04-01 18:08 | disposition home or self-care (01) ==
LOC: NCHCN 18:07
PROVIDERS: PCP Physician Assistant Medical; Visit Provider Physician Assistant Medical
DX: E11.9 Type 2 diabetes mellitus without complications (principal); E55.9 Vitamin D deficiency, unspecified; I10 Essential (primary) hypertension; E22.1 Hyperprolactinemia; E29.1 Testicular hypofunction; D75.839 Thrombocytosis, unspecified; Z12.5 Encounter for screening for malignant neoplasm of prostate
CPT/HCPCS: 80053; 82306; 84153; 84402; 84403; 85027; 83036; 84146; 84439; 84443

== ENCOUNTER 2023-04-06 12:29 | Outpatient (REF) | payer MEDICARE, MEDICAID, SELFPAY ==
[2023-04-07 12:15] LABS: *AMPHETAMINES SCREEN URINE Negative (Negative); *BARBITURATES SCREEN URINE Negative (Negative); *BENZODIAZEPINES SCREEN URINE Negative (Negative); Cannabinoids THC Positive (Negative); Cocaine Screen,Urine Negative (Negative); METHADONE URINE SCREEN Negative (Negative); OPIATES URINE SCREEN Negative (Negative)
[2023-04-07 12:21] LABS: Tricyclic Antidepressants Negative (Negative)
== END 2023-04-06 12:30 | disposition home or self-care (01) ==
LOC: NCHCN 12:29
PROVIDERS: PCP Physician Assistant Medical; Visit Provider Physician Assistant Medical
DX: Z51.81 Encounter for therapeutic drug level monitoring (principal)
CPT/HCPCS: 80307

== ENCOUNTER 2023-04-29 13:52 | Outpatient (REF) | payer MEDICARE, MEDICAID, SELFPAY ==
[2023-04-29 20:34] LABS: Creatine Kinase 109 U/L (39-308)
[2023-05-05 13:26] LABS: Noroxycodone-by LC-MS/MS 111 ng/mL (Cutoff: 25); Noroxymorphone-by LC-MS/MS Negative ng/mL (Cutoff: 25); Oxycodone Interpretation Positive.; Oxycodone-by LC-MS/MS 32 ng/mL (Cutoff: 25); Oxymorphone-by LC-MS/MS 34 ng/mL (Cutoff: 25)
== END 2023-04-29 13:53 | disposition home or self-care (01) ==
LOC: NCHCN 13:52
PROVIDERS: PCP Physician Assistant Medical; Visit Provider Physician Assistant Medical
DX: G89.4 Chronic pain syndrome (principal)
CPT/HCPCS: 80365; 82550

== ENCOUNTER 2023-10-07 20:47 | Outpatient (REF) | payer MEDICARE, MEDICAID, SELFPAY ==
[2023-10-07 20:33] LABS: Hemoglobin A1C 6.1 % (<5.7)
[2023-10-07 20:35] LABS: ALT 46 U/L (16-63); AST 31 U/L (15-37); Albumin 3.9 g/dL (3.4-5.0); Alkaline Phosphatase 104 U/L (46-116); Anion Gap 8.6 mmol/L (3-11); BUN 10 mg/dL (7-18); Bilirubin, Total 0.76 mg/dL (0.2-1.0); CO2 25.4 mmol/L (21.0-32.0); CREATININE 1.1 mg/dL (0.70-1.30); Calcium 9.6 mg/dL (8.5-10.1); Calculated LDL 92 mg/dL (<100); Chloride 104 mmol/L (98-107); Cholesterol 153 mg/dL (<200); Estimated GFR 80.27 (mL/min/1.73m2); Glucose 129 mg/dL (74-106); HDL Cholesterol 35 mg/dL (40-60); Potassium 4.1 mmol/L (3.5-5.1); Sodium 138 mmol/L (136-145); Triglyceride 130 mg/dL (<150)
--- OUTSIDE RECORDS SUMMARY | 2023-10-07 20:51 | XMS_ITS | Encounter Summary ---
Author Organization [facility]ly [facility] [place] [address] Care Team Providers Care Vehicle Return Associate Name Role Phone Татьяна Koehler Primary Care Provider [phone] Reason for Referral * Diagnostic Test (Routine) - Authorized Specialty Diagnoses / Procedures Referred By Mary t Referred To Contact Radiology Diagnoses Primary osteoarthritis of left hip Procedures XR Fluoro Guided Joint Injection Large Left Deana Lackey APRN [facility] [place] [address] [facility] Rad Xray [address] [place] [address] [place] [address] Referral ID Status Reason Start Date Expiration Date Visits Requested Visits Authorized [id number] Authorized Specialty Service Requested 04/06/2023 10/04/2024 1 1 Reason for Visit * Reason Onset Date Comments Injections 04/03/2023 Left Hip; Fluoro Encounter Details Date Type Department Care Team ([facility] Contact Info) Description 04/03/2023 Telephone [place] [address] Deana Lackey APRN [facility] [place] [address] Injections (Left Hip; Fluoro) Social History Tobacco Use Types Packs/Day Years Used Date Smoking Tobacco: Former Cigarettes Q uit: 08/23/2017 Smokeless Tobacco: Never Alcohol Use Standard Drinks/Week Comments No 0 (1 standard drink = 0.6 oz pur e alcohol) rarely Sex and Gender Information Value Date Recorded Sex Assigned at Not on file Gender Identity Not on file Sexual Orientation Not on file documented as of this encounter Miscellaneous Notes * Telephone Encounter - Shanita Nielsen - 04/06/2023 9:05 AM EST Screening questions and Batch scheduling completed. * Telephone Encounter - Hannah Justin RN - 04/03/2023 10:43 AM EST Patient's request for injection appointment of the Left Hip has been reviewed by Clinical Support. Is it too soon for patient to have this injection? No Date of last injection? 11/10/22 Is this a high dollar injection? No Enter High Dollar Prior Auth if Synvisc or Orthovisc injection. Does this injection need to be scheduled in radiology under fluoro? yes Have orders been placed? yes Injection within 3 months prior to joint arthroplasty or arthroscopy is associated with increased rates of postoperative infection: this includes, hip, knee, and shoulder. * Telephone Encounter - Ignacia Bowman - 04/03/2023 8:17 AM ESTSummary: Injection request Best phone # to reach patient for [phone] Best days/times to schedule the appointment: Any Is it acceptable to leave a voicemail message with your appointment if we are unable to reach you directly? yes If no, what is an alternative phone number to call? Patient requests appointment for injection of the Left hip. What type of injection? Fluoro Injection NOTE: If this is a request for a fluoro guided injection, please ask the safety questions (use .fluoroschedquestion dot phrase) I will send this request to the Clinical Support team for review. Some injections require prior authorization, special orders, or an appointment somewhere other thanour clinic, so knowing this in advance will help us to better meet your needs. If the injection requires prior authorization, it may take 14 or more business days before we can schedule your appointment. As soon as this service approved by the clinical support team, we will call you to schedule the appointment. Please send to the appropriate team pool to schedule INJECTION TRIAGE: Patient???s approximate weight in lbs.485 Does the patient have any contrast/dye allergies? No Does the patient have a independent driver for this procedure?yes Has patient had any steroid injections in the past 3 months?no Has this patient has replacement surgery of the area we are performing the procedure on?no Is this patient ambulatory?yes(yes/no) Is the patient coming from a Skilled Care Facility? No Is the patient currently taking any blood thinner medications?no Are you currently being treated for an infection with antibiotics? no If yes, fluoro order may be created, but patient must be scheduled at least two weeks from the dateof last antibiotic dose. If patient is a female <50 years old, could the patient be ? No (yes/no) BATCH SCHEDULING: Last Name/First Initial: Darvin Sanz MODALITY/STUDY: Fluro hip Preferred Dates or Times: patient states he is open (FLUORO ONLY) Diabetic? yes (FLUORO ONLY) Antibiotics or in the last 14 days?no FOR ORTHO REFERENCE: Is there a Follow up Needed?n/a Is this a Workers Comp?no Can we leave a detailed message on Telephone?yes Can we send a Trendslide Message? No Remind Patient that if they start an Antibiotic they will need to Re-Schedule their Appointment in Fluoro documented in this encounter Plan of Treatment Scheduled Orders Name Type Priority Associated Diagnoses Orde r Schedule XR Fluoro Guided Joint Injection Large Left Imaging Routine Primary osteoarthritis of left hip Expected: 04/03/2023 (Approximate), Expires: 10/03/2023 documented as of this encounter Visit Diagnoses Diagnosis Primary osteoarthritis of left hip Primary localized osteoarthrosis, pelvic region and thigh documented in this encounter Care Teams Vehicle Return Associate Relationship Specialty Start Date End Date Татьяна Koehler PA [address] [place] [address] PCP - General Family Medicine 10/19/19 documented as of this encounter
--- OUTSIDE RECORDS SUMMARY | 2023-10-07 20:51 | XMS_ITS | Encounter Summary ---
Author Organization [facility] [place] [address] Care Team Providers Care Manager Customer Service Name Role Phone Татьяна Koehler Primary Care Provider [phone] Reason for Visit * Reason Onset Date Comments Prior Authorization 02/11/2023 Encounter Details Date Type Department Care Team ([facility] st Contact Info) Description 02/11/2023 [place] [id number] Cony Toledo Prior Authorization Social History Tobacco Use Types Packs/Day Years [...] encounter Miscellaneous Notes * Telephone Encounter - Cony Toledo - 02/11/2023 12:14 PM EST Images from the original note were not included. PA Outcome: PA Not Needed Per insurance: No PA required at this time. Medication:Testosterone Cypionate * Telephone Encounter - Cony Toledo - 02/11/2023 12:13 PM EST Medication Prior Authorization Thu Medication name/dose/directions: Testosterone Cypionate 200mg/mL - inj 0.5mL once weekly Rationale for request: Hypogonadism (E29.1) Health plan: [employer] ([employer]) Shah: [id number] Authorizing sales representative graphic art name: Marissa Sent to health plan on: 02/11/23 documented in this encounter Plan of Treatment Not on file documented as of this encounter Visit Diagnoses Not on filedocumented in this encounter Care Teams Manager Customer Service Relationship Specialty Start Date End Date Татьяна Koehler PA [address] [place] [address] PCP - General Family Medicine 10/19/19 documented as of this encounter
--- OUTSIDE RECORDS SUMMARY | 2023-10-07 20:51 | XMS_ITS | Encounter Summary ---
[place] [address] Care Team Providers Care Copyman Name Role Phone Татьяна Koehler Primary Care Provider [phone]- [phone] Encounter Details Date Type Department Care Team ([facility] st Contact Info) Description 04/03/2023 [place] [address] Rosy Bourgeois PA [facility] [place] [address] Social History Tobacco Use Types Packs/Day Years [...] on file documented as of this encounter Plan of Treatment Not on file documented as of this encounter Visit Diagnoses Not on filedocumented in this encounter Care Teams Copyman Relationship Specialty Start Date End Date Татьяна Koehler PA [address] [place] [address] PCP - General Family Medicine 10/19/19 documented as of this encounter
--- OUTSIDE RECORDS SUMMARY | 2023-10-07 20:51 | XMS_ITS | Encounter Summary ---
[place] [address] Care Team Providers Care Tobacco Wetter Name Role Phone Татьяна Koehler Primary Care Provider [phone]- [phone] Encounter Details Date Type Department Care Team (Latest Contact Info) Description 11/10/2022 Travel Social History Tobacco Use Types Packs/Day Years [...] on filedocumented in this encounter Care Teams Tobacco Wetter Relationship Specialty Start Date End Date Татьяна Koehler PA [address] [place] [address] PCP - General Family Medicine 10/19/19 documented as of this encounter
--- OUTSIDE RECORDS SUMMARY | 2023-10-07 20:51 | XMS_ITS | Encounter Summary ---
Author Organization [facility] Address [facility] [place] [address] Care Team Providers Care Ui Application Developer Name Role Phone Татьяна Koehler Primary Care Provider [phone]- [phone] Encounter Details Date Type Department Care Team (Latest Contact Info) Description 01/21/2023 9:00 AM EST TH Visit (TeleHealth) [place] [id number] Liv Andino MD [facility] [place] [address] Hypogonadism male; Prolactinoma; Vitamin D deficiency; Controlled type 2 diabetes mellitus with hyperglycemia, with long-term current use of insulin; Urinary frequency Social History Tobacco Use Types Packs/Day Years [...] on file documented as of this encounter Last Filed Vital Signs Vital Sign Reading Time Taken Comments Blood Pressure 140/90 01/21/2023 8:56 AM EST Pulse 70 01/21/2023 8:56 AM EST Temperature - - Respiratory Rate 14 01/21/2023 8:56 AM EST Oxygen Saturation - - Inhaled Oxygen Concentration - - Weight 223.6 kg (493 lb) 01/21/2023 8:56 AM EST Height 175.3 cm (5' 9) 01/21/2023 8:56 AM EST Body Mass Index 72.8 01/21/2023 8:56 AM EST documented in this encounter Patient Instructions * Patient Instructions* Liv Andino MD - 01/21/2023 9:00 AM EST switched to ozempic 1 mg weekly last year and will increase to 2 mg weekly today (01/21/23) to helphim lose wt. Lower A1c, and reduce cardiovascular outcomes. We suggested to Shasta that we check some labs including a free and total testosterone, PRL, TSH, FT4, CBC, CMP, PSA, A1c, 25vitamin D, etc as ordered below (he prefers to do lab locally at [facility] lab). Orders Placed This Encounter Procedures Testosterone, total and free Prolactin TSH T4, free Vitamin D, 25-Hydroxy Hemoglobin A1c PSA (Ultrasensitive) Comprehensive metabolic panel (non-fasting) Hemoglobin and Hematocrit, blood I will help adjust his testosterone dose if indicated and meanwhile to cont 100 mg sc q 10 days shots. To increase ozempic pen to 2 mg sc weekly and continue Farxiga 5 mg daily for his T2DM and severe obesity. To continue vitamin D 50,000 iu weekly as prescribed. We did emphasize to him that I think in the long run bariatric surgery is the best treatment he canhave to feel better and to be healthy long-term. I encouraged him to continue follow-up with [facility] and will cont GLP-1 to help him lose weight. He is followed by his PCP for [id number] will check A1c q 3-6 months further. RTC: 6-12 months, at least annually Liv Andino MD, PhD, FACE, FACP documented in this encounter Progress Notes * Liv Andino MD - 01/21/2023 9:00 AM EST Subjective: ENDOCRINE FOLLOW UP NOTE Name: Shasta Sanz : 1970 MRN: .[id number] PCP: ZANE Ulloa Date: 01/21/23 Patient verbally consents to this telehealth visit and understands that this visit may be billed, similar to a clinic office visit. I provided care to the patient today via VDO/Phone call. The total time associated with this visit,chart review, documentation, and coordination of care was 30 minutes. Reason for follow-up: Annual visit for hypogonadism, h/o microprolactinoma, severe obesity (BMI >70), Type 2 diabetes and vitamin D deficiency. HPI: Patient ID: Shasta Sanz is a 52 y.o. male who used to see Dr. 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 He also has what appears to be idiopathic hypogonadism despite having normalized PRL on Rx that is probably a combination of his weight (BMI >70) and perhaps the opioids that he is on. He is currently on testosterone cypionate 100 mg c q 10 days (lowered from 100 mg weekly since 12/20/20 due to a borderline high free testosterone at 14.5 ; normal 4.0-15.6). He was interested in bariatric surgery but says he was told he has to lose some weight. He used to have prediabetes (A1c 5.9%) when I was first saw him and started him on metformin in 2010 and then he has been follow-up with PCP for Type 2 DM with CAD and CHF (EF 40s%). He was put on insulin and tapered Basaglar down from 30 to 23u qhs and then off since 2020. Currently he is taking Farxiga 5 mg qd and switched victoza 1.8 mg sc qd to ozempic 1 mg sc weekly => will increase to 2mg sc weekly today (01/21/23) to help lower weight and A1c down. Last A1c is July 2022 was better at 6.3% but still has difficulty losing weight. He used to have low vitamin D at 18 (12/23/2010), started on vitamin D 50,000 iu weekly and then quit it with 25vitamin D dropped to 13 (01/14/22) so he already resumed taking vitamin D 50,000 iu weekly. Review of Systems Constitutional: A bit tired, + recent weight change (per our record he used to lose wt down from 446-453 in 5686-2035 to 430 lb in 202 but then back up to 470-493 lbs lately). No heat or cold intolerance Endocrine: No thyroid problems. No abnormal sweating or flushing. Some intermittemt galactorrhea and breast tenderness with itchy nipples No difficulty with erection. Integument: No ulcerations. No easily bruising. Neurological: +some migraine headache => BP 140s/90s borderline high but PCP stated that he can cont to monitor without medication yet per pt. No weakness. No seizure, fainting or dizziness Eyes: No recent vision change ENT: No dysphagia, dental issues Cardiovascular: No chest pain or palpitations Respiratory: rare cough, wheezing, +shortness of breath and JOSE DE JESUS GI: Normal appetite. No nausea, vomiting, diarrhea, constipation : no frequent urinary tract infections or polyuria Musculoskeletal: + joint aches and muscle pain. 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 Prolactinoma D35.2 Atherosclerosis of [place] coronary artery of [place] heart without angina pectoris I25.10 COPD (chronic obstructive pulmonary disease) J44.9 Left heart failure with left ejection fraction 41-49 percent I50.1 Migraine G43.909 Narcolepsy G47.419 Blind left eye H54.40 Chronic low back pain M54.50, G89.29 History of depression Z86.59 Diabetes E11.9 Social History Tobacco Use Smoking status: Former Packs/day: 1.5 Types: Cigarettes Quit date: 08/23/2017 Years since quittin.4 Smokeless tobacco: Never Vaping Use Vaping Use: Every day Substance Use Topics Alcohol use: No Comment: rarely Family History Problem Relation Age of Onset Coronary Artery Disease Mother Obesity Mother Heart Disease Mother High Blood Pressure Father Obesity Father Cancer Father Diabetes Maternal Aunt Thyroid Disease Maternal Aunt Results for SHASTA SANZ ( ) as of 11/23/2020 Ref. Range 01/31/2016 11:53 05/05/2016 13:01 04/27/2017 12:10 04/19/2018 10:55 09/06/2018 11:16 05/17/201911:36 12/01/2019 09:14 POC Creatinine Range: 0.8 - 1.5 mg/dL 0.9 POC e GFR Range: 60 >60 TSH 0.27 - 4.20 mcIU/mL 2.96 LH Range: 1.7 - 8.6 mlU/ML 3.8 Prolactin Range: 4.0 - 15.2 ng/mL 81.9 (H) 7.8 <0.5 (L) 64.8 (H) 34.6 (H) 32.7 (H) Testo Total Range: 2.49 - 8.36 ng/mL 1.55 (L) 2.15 (L) 5.72 1.48 (L) 9.63 (H) Testo Total Range: 250 - 1100 ng/dL 157 (L) Testo Free Range: 35.0 - 155.0 pg/mL 20.1 (L) Ref. Range 12/23/2010 12:17 07/01/2013 15:29 07/28/2014 12:03 25-OH Vit D Total Range: 30 - 100 ng/mL 18 (L) 14 (L) 27 (L) Hemoglobin A1C Range: <=5.6 % 5.9 (H) 5.7 (H) Outside lab on 05/27/20 CBC - Hb 16, Hct 50.4%H CMP - normal except for ALT 84 and AST 48, likely due to fatty liver Outside lab on 11/28/20 01/14/22* 08/05/22 Testosterone 518 407 Free Testos 14.5H 11.1, ok (normal 4.1-15.6) better on q10 days shots for Depot testosterone PRL 15.8 12.7, OK (was high at 32-34 prior) TSH 1.7 1.81 FT4 1.09 0.82, ok for thyroid A1c 5.7% 6.4% 6.3%, excellent diabetes control CBC Hb 14.8/Hct 46.6 15/45%, ok CMP All normal OK (BG 100, Ca 8.9, Cr 1.1) 25vitamin D 16.4 13L, still very low (normal 30-100) => resumed vitD 50,000 iu weekly as prescribed *called pt for lab results & to resume vitD 50,000 iu weekly (not done yet per pt) and continueDepot Testosterone shots 0.5 ml every 10 days. Assessment and Plan: 52 y.o. 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 His PRL was slightly high at 30s => then better at 15.8 on the same dose of cabergoline 0.5 mg twice per week. He also has central hypogonadism due to a combinationof his extreme weight, hyperPRL and perhaps the opioids that he is on. He is currently on testosterone cypionate 100 mg (0.5 ml) every 10 days (instead of weekly since 2020) subcutaneously with better free testosterone results last year and will need to recheck lab today. He is still in the process of trying to qualify for bariatric surgery but says he was told he has to lose some weight He used to have prediabetes (A1c 5.9%) when I was first saw him 10 yrs ago on 12/23/10 and started him on metformin and then he has been follow-up with PCP for progression to Type 2 DM with CAD and CHF (EF 40s%) during the interim. He was on Basaglar, Novolog and Farxiga, victoza 1.8 mg daily =>switched to ozempic 1 mg weekly last year and will increase to 2 mg weekly today (01/21/23) to help him lose wt. Lower A1c, and reduce cardiovascular outcomes. We suggested to Shasta that we check some labs including a free and total testosterone, PRL, TSH, FT4, CBC, CMP, PSA, A1c, 25vitamin D, etc as ordered below (he prefers to do lab locally at [facility] lab). Orders Placed This Encounter Procedures Testosterone, total and free Prolactin TSH T4, free Vitamin D, 25-Hydroxy Hemoglobin A1c PSA (Ultrasensitive) Comprehensive metabolic panel (non-fasting) Hemoglobin and Hematocrit, blood I will help adjust his testosterone dose if indicated and meanwhile to cont 100 mg sc q 10 days shots. To increase ozempic pen to 2 mg sc weekly and continue Farxiga 5 mg daily for his T2DM and severe obesity. To continue vitamin D 50,000 iu weekly as prescribed. We did emphasize to him that I think in the long run bariatric surgery is the best treatment he canhave to feel better and to be healthy long-term. I encouraged him to continue follow-up with [facility] and will cont GLP-1 to help him lose weight. He is followed by his PCP for [id number] will check A1c q 3-6 months further. RTC: 6-12 months, at least annually Liv Andino MD, PhD, FACE, FACP documented in this encounter Plan of Treatment Scheduled Orders Name Type Priority Associated Diagnoses Orde r Schedule Testosterone, total and free Lab Routine Hypogonadism male Prolactinoma Vitamin D deficiency Controlled type 2 diabetes mellitus with hyperglycemia, with long-term current use of insulin Urinary frequency Expected: 01/21/2023 (Approximate), Expires: 01/22/2024 Prolactin Lab Routine Hypogonadism male Prolactinoma Vitamin D deficiency Controlled type 2 diabetes mellitus with hyperglycemia, with long-term current use of insulin Urinary frequency Expected: 01/21/2023 (Approximate), Expires: 01/21/2024 TSH Lab Routine Hypogonadism male Prolactinoma Vitamin D deficiency Controlled type 2 diabetes mellitus with hyperglycemia, with long-term current use of insulin Urinary frequency Expected: 01/21/2023, Expires: 01/22/2024 Vitamin D, 25-Hydroxy Lab Routine Hypogonadism male Prolactinoma Vitamin D deficiency Controlled type 2 diabetes mellitus with hyperglycemia, with long-term current use of insulin Urinary frequency Expected: 01/21/2023 (Approximate), Expires: 01/21/2024 Hemoglobin A1c Lab Routine Hypogonadism male Prolactinoma Vitamin D deficiency Controlled type 2 diabetes mellitus with hyperglycemia, with long-term current use of insulin Urinary frequency Expected: 01/21/2023, Expires: 01/22/2024 PSA (Ultrasensitive) Lab Routine Hypogonadism male Prolactinoma Vitamin D deficiency Controlled type 2 diabetes mellitus with hyperglycemia, with long-term current use of insulin Urinary frequency Expected: 01/21/2023 (Approximate), Expires: 01/21/2024 documented as of this encounter Visit Diagnoses Diagnosis Hypogonadism male Other testicular hypofunction 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) Vitamin D deficiency Unspecified vitamin D deficiency Controlled type 2 diabetes mellitus with hyperglycemia, with long-term current use of insulin Urinary frequency documented in this encounter Care Teams Ui Application Developer Relationship Specialty Start Date End Date Татьяна Koehler PA [address] [place] [address] PCP - General Family Medicine 10/19/19 documented as of this encounter
--- OUTSIDE RECORDS SUMMARY | 2023-10-07 20:51 | XMS_ITS | Encounter Summary ---
[place] [address] Care Team Providers Care Retail Grocer Name Role Phone Татьяна Koehler Primary Care Provider +1- [phone] Reason for Visit * Reason Onset Date Comments Medication Refill 04/27/2023 Encounter Details Date Type Department Care Team (Late st Contact Info) Description 04/27/2023 Refill [place] [id number] Marcie Jennings, RN Social History Tobacco Use Types Packs/Day Years [...] on filedocumented in this encounter Care Teams Retail Grocer Relationship Specialty Start Date End Date Татьяна Koehler PA [address] [place] [address] PCP - General Family Medicine 10/19/19 documented as of this encounter
--- OUTSIDE RECORDS SUMMARY | 2023-10-07 20:51 | XMS_ITS | Encounter Summary ---
Author Organization [facility] [place] [address] Care Team Providers Care Technical Trainer Name Role Phone Татьяна Koehler Primary Care Provider +1- [phone] Reason for Visit * Reason Comments Medication Refill Encounter Details Date Type Department Care Team ( st Contact Info) Description 02/10/2023 Refill [place] [address] Liv Andino MD [facility] [place] [address] Social History Tobacco Use Types Packs/Day Years [...] on filedocumented in this encounter Care Teams Technical Trainer Relationship Specialty Start Date End Date Татьяна Koehler PA [address] [place] [address] PCP - General Family Medicine 10/19/19 documented as of this encounter
--- OUTSIDE RECORDS SUMMARY | 2023-10-07 20:51 | XMS_ITS | Encounter Summary ---
[place] [address] Care Team Providers Care Yeast Culture Developer Name Role Phone Татьяна Koehler Primary Care Provider +1- [phone] Reason for Visit * Reason Onset Date Comments Medication Refill 05/07/2023 Encounter Details Date Type Department Care Team ([facility] st Contact Info) Description 05/07/2023 Refill [place] [phone] Marcie Jennings, RN Social History Tobacco Use [...] on filedocumented in this encounter Care Teams Yeast Culture Developer Relationship Specialty Start Date End Date Татьяна Koehler PA [address] [place] [address] PCP - General Family Medicine 10/19/19 documented as of this encounter
--- OUTSIDE RECORDS SUMMARY | 2023-10-07 20:51 | XMS_ITS | Encounter Summary ---
Author Organization [facility] [place] [address] Care Team Providers Care Human Resources File Clerk Name Role Phone Татьяна Koehler Primary Care Provider +1- [phone] Reason for Visit * Reason Onset Date Comments Injections 06/29/2023 Encounter Details Date Type Department Care Team (Late st Contact Info) Description 06/29/2023 Telephone [place] [phone] Deana Lackey APRN [facility] [place] [address] Injections Social History Tobacco Use Types Packs/Day Years [...] encounter Miscellaneous Notes * Telephone Encounter - Petty Lackey - 06/29/2023 3:52 PM EDT Answered the safety questions for LT HIP INJECTION and sent for batch. * Telephone Encounter - Alexander Sarmiento - 06/29/2023 3:01 PM EDT Patient's request for injection appointment of the [...] knee, and shoulder. * Telephone Encounter - Kvng Hamlin - 06/29/2023 2:08 PM EDT Best phone # to reach patient for [phone] Best days/times to schedule the appointment: next few days to a week and has to be between 10-2 Is it acceptable to leave a voicemail message with your appointment if we are unable to reach you directly? yes If no, what is an alternative phone number to call? Patient requests appointment for injection of the Left hip. What type of injection? Fluoro Injection INJECTION TRIAGE: Patient???s approximate weight in lbs. 474 Does the patient have any contrast/dye allergies?No Does the patient have a charter driver for this procedure?yes Has patient had any steroid injections in the past 3 months?yes Has this patient has replacement surgery of the area we are performing the procedure on?no Is this patient ambulatory?yes (yes/no) Is the patient coming from a Skilled Care Facility? No Is the patient currently taking any blood thinner medications?no Are you currently being treated for an infection with antibiotics? yes If yes, fluoro order may be created, but patient must be scheduled at least two weeks from the dateof last antibiotic dose. If patient is a female <50 years old, could the patient be ? N/a(yes/no) BATCH SCHEDULING: Last Name/First Initial: Pa Sanz MODALITY/STUDY: LT Hip Fluoro Injection Preferred Dates or Times: Between 10 am-2 pm (FLUORO ONLY) Diabetic? yes (FLUORO ONLY) Antibiotics or in the last 14 days?yes from 06/28-07/02 FOR ORTHO REFERENCE: Is there a Follow up Needed?no Is this a Workers Comp?no Can we leave a detailed message on Telephone?yes Can we send a [facility] Message? no documented in this encounter Plan of Treatment Not on file documented as of this encounter Visit Diagnoses Not on filedocumented in this encounter Care Teams Human Resources File Clerk Relationship Specialty Start Date End Date Татьяна Koehler PA [address] [place] [address] PCP - General Family Medicine 10/19/19 documented as of this encounter
--- OUTSIDE RECORDS SUMMARY | 2023-10-07 20:51 | XMS_ITS | Clinical Summary ---
Author Organization [facility] Address [facility] [place] [address] Care Team Providers Care Telegraph Messenger Name Role Phone Татьяна Koehler Primary Care Provider +1- [phone] Allergies Active Allergy Reactions Criticality Noted Date Comments Ibuprofen Other (See Comments) 05/05/2016 GI bleed Medications Medication Sig Dispensed Refills Start Date End Date Status furosemide (Lasix) 40 mg Tablet Take 60 mg by mouth daily. Reported on 05/05/2016 Active celecoxib (CeleBREX) 400 mg capsule Take 400 mg by mouth daily. Active DEXILANT 60 mg Cap, Delayed Rel., Multiphasic Take 60 mg by mouth daily. 5 12/05/2015 Active diaZEPam (VALIUM) 10 mg Tablet Take 10 mg by mouth 3 times daily as needed. Reported on 05/05/2016 0 01/16/2016 Active escitalopram (LEXAPRO) 20 mg Tablet Take 20 mg by mouth daily. 3 01/14/2016 Active HYDROcodone-aceta minophen (NORCO) 10-325 mg Tablet Take 1 tablet by mouth 4 times daily. Reported on 05/05/2016 0 01/16/2016 Active Syringe, Disposable, 1 mL Syringe 1 each by [facility].(Non-Drug; Combo Route) route every 14 days. Must be luer-lana 12 Syringe 3 12/11/2016 Active Needle, Disp, 22 G 22 gauge x 1 Needle 1 each by Misc.(Non-Drug; Combo Route) route every 14 days. 6 each 3 04/01/2017 Active Needle, Disp, 25 G 25 gauge x 5/8 NeedleIndications :Prolactinoma 1 Units by Misc.(Non-Drug; Combo Route) route every 7 days. 30 each 1 04/27/2017 Active chlorthalidone (HYGROTEN) 50 mg Tablet TAKE ONE TABLET BY MOUTH EVERY DAY 5 12/14/2017 Active SKLICE 0.5 % Lotion as needed. 1 12/02/2017 Active INCRUSE ELLIPTA 62.5 mcg/actuation Disk with Device INHALE ONE PUFF BY MOUTH EVERY DAY 5 11/15/2017 Active DILT-XR 180 mg Capsule,Degradabl e Cnt Release TAKE ONE CAPSULE BY MOUTH EVERY DAY 5 11/10/2017 Active methylphenidate HCl (RITALIN) 20 mg Tablet TAKE ONE TABLET BY MOUTH THREE TIMES A DAY 0 11/26/2017 Active loratadine (CLARITIN) 10 mg Tablet Take 10 mg by mouth daily. Active VENTOLIN HFA 90 mcg/actuation HFA Aerosol Inhaler TAKE ONE TWO PUFFS BY MOUTH EVERY 4 6 HOURS NEEDED FOR WHEEZING 0 08/16/2018 Active amLODIPine (NORVASC) 5 mg Tablet TAKE ONE TABLET BY MOUTH EVERY DAY DIRECTED 11 12/17/2018 Active ARIPiprazole (ABILIFY) 10 mg Tablet TAKE ONE TABLET BY MOUTH EVERY MORNING WEAN OFF LATUDA 2 12/01/2018 Active aspirin 81 mg Tablet, Delayed Release (E.C.) daily. Dr Ordered for Cardiac reasons 5 12/06/2018 Active atorvastatin (LIPITOR) 20 mg Tablet TAKE ONE TABLET BY MOUTH EVERY EVENING 11 12/25/2018 Active XOPENEX HFA 45 mcg/actuation HFA Aerosol Inhaler INHALE TWO PUFFS BY MOUTH EVERY 6 HOURS NEEDED FOR SHORTNESS OF BREATH TO REPLACE PROAIR 2 11/22/2018 Active Vraylar 4.5 mg Capsule daily. 07/28/2019 Active Farxiga 5 mg Tablet TAKE ONE TABLET BY MOUTH EVERY DAY 07/10/2020 Active Insulin Basaglar KwikPen U-100 100 unit/mL (3 mL) pen 22 Units daily. 09/30/2020 Active NovoLOG Flexpen U-100 Insulin Insulin Pen INJECT PER SLIDING SCALE BEFORE MEALS AND AT BEDTIME MAX 21 UNITS PER DAY 08/02/[address] (Josembalta) 30 mg Capsule, Delayed Release(E.C.) Take 1 capsule by mouth daily. 30 tablet 11 11/23/2020 Active cabergoline (DOSTINEX) 0.5 mg Tablet Take 1 tablet by mouth twice a week. 25 tablet 3 11/26/2020 Active semaglutide (Ozempic) 2 mg/dose (8 mg/3 mL) Pen Injector Inject 2 mg subcutaneously once a week. 9 mL 4 01/21/2023 Active testosterone cypionate (DepoTESTOSTERONE Cypionate) (200mg/mL) injection Inject 0.5 mLs into the muscle every 10 days. INJECT 0.5ML INTO THE MUSCLE ONCE WEEKLY 6 mL 3 04/27/2023 Active Syringe with Needle, Disp, (BD Luer-Lana Syringe) 3 mL 23 x 1 Syringe USE ONE SYRINGE EVERY 7 DAYS 12 each 04/27/2023 Active ergocalciferoL, vitamin D2, (vitamin D2) 50,000 unit capsule Take 1 capsule by mouth once a week. 13 capsule 05/07/2023 Active Active Problems Patient Care Coordination No te Formatting of this note migh t be different from the original. Immunization record reconciled. 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 Atherosclerosis of [place] co ronary artery of [place] heart without angina pectoris 05/18/2019 Left heart failure with left ejection fraction 41-49 percent 05/18/2019 Migraine 05/09/2013 Hypogonadism male 12/23/2010 Pre-diabetes 12/23/2010 Hyperprolactinemia 12/23/2010 Obesity 12/23/2010 HTN (hypertension) 12/23/2010 Dyslipidemia 12/23/2010 GERD (gastroesophageal reflux disease) 1 Anxiety 12/23/2010 Depression 12/23/2010 Sleep apnea 12/23/2010 Galactorrhea 12/23/2010 Former smoker, stopped smoking in distant past 1 ED (erectile dysfunction) 12/23/2010 Decreased libido 12/23/2010 Fatigue 12/23/2010 CORDERO (headache) 12/23/2010 Traumatic enucleation of left eyeball 12/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 Immunizations Name Administration Dates Next Due DTaP 07/15/2011 Influenza Quadrivalent, Preservative Free 2019 Influenza Trivalent w/Preservative 11/23/2012 Pneumococcal Polysaccharide (Pneumovax 23) 02/23 Tdap 07/15/2011 Family History Medical History Relation Comments Cancer Father High Blood Pressure Father Obesity Father Diabetes Maternal Aunt Thyroid Disease Maternal Aunt Coronary Artery Disease Mother Heart Disease Mother Obesity Mother Relation Status Comments Father Maternal Aunt Mother Social History Tobacco Use Types Packs/Day Years Used Date Smoking Tobacco: Former Cigarettes Q uit: 08/23/2017 Smokeless Tobacco: Never Tobacco Cessation:Ready to Q uit: No; Counseling Given: Yes Alcohol Use Standard Drinks/Week Comments No 0 (1 standard drink = 0.6 oz pur e alcohol) rarely Sex and Gender Information Value Date Recorded Sex Assigned at Not on file Gender Identity Not on file Sexual Orientation Not on file Last Filed Vital Signs Vital Sign Reading Time Taken Comments Blood Pressure 140/90 01/21/2023 8:56 AM EST Pulse 70 01/21/2023 8:56 AM EST Temperature 36.1 ??C (97 ??F) 12/01/2019 8:32 AM EDT Respiratory Rate 14 01/21/2023 8:56 AM EST Oxygen Saturation 95% 01/07/2022 2:22 PM EST Inhaled Oxygen Concentration - - Weight 223.6 kg (493 lb) 01/21/2023 8:56 AM EST Height 175.3 cm (5' 9) 01/21/2023 8:56 AM EST Body Mass Index 72.8 01/21/2023 8:56 AM EST Plan of Treatment Health Maintenance Due Date Last Done Comments CT Colonography 1969 Colonoscopy 1969 Colorectal Cancer Screening 1969 FIT DNA 1969 FIT 1969 Sigmoidoscopy (10 year) with FIT yearly 1969 Sigmoidoscopy 1969 DM Opthalmology Exam 11/21/1979 DM Urine Microalbumin yearly 11/21/1979 HIV screen 11/21/1987 Hepatitis C Screening 11/21/1987 Hepatitis B vaccine (0-59 yrs) (1) 1988 Pneumococcal Vaccine: At-Ris k 5-64yrs (2 of 2 - PCV) 02/23/2013 02/24/2012 DM Hemoglobin A1c 10/01/2013 07/01/2013, 12/23/2010 Zoster vaccine (1 of 2) 11/21/2019 DM Creatinine yearly 05/16/2020 05/17/2019, 07/01/2013, 12/23/2010 Tetanus vaccine 07/14/2021 07/15/2011, 07/15/2011 Covid-19 Vaccine ( season) 2022 Influenza (Flu) vaccine (1 o f 1 - Influenza standard series) 10/25/2023 11/23/2019, 11/23/2012 Tdap adult Completed 07/15/2011 Procedures Procedure Name Priority Date/Time Associated Diagnosis Comments POCT CREATININE Routine 05/17/2019 11:36 AM EDT HEMOGLOBIN A1C Routine 07/01/2013 3:29 PM EDT Hypogonadism male Hyperprolactinemia Prediabetes Unspecified vitamin D deficiency Urinary frequency from Last 3 Months or Most Recently Relevant to Health Maintenance Results * POCT Creatinine (05/17/2019 11:36 AM EDT) Creatinine, POC 0.9 0.8 - 1.5 mg/dL POC Estimated GFR >60 60 Blood specimen (specimen) 05/17/2019 11:36 AM EDT Татьяна DEGROOT POINT OF CARE TEST ORDERABLES * (ABNORMAL) Hemoglobin A1c (07/01/2013 3:29 PM EDT) Hemoglobin A1c 5.7(H) <=5.6 % MARK KAUR Comment: As of 2013 the methodology for Hemoglobin A1c testing has changed. This change is accompanied by a new interpretive statement and flags. Please review the new interpretive statement and contact Dr. Evangelista or Dr. Rainey with questions. Reference Range: 4.3 ? 5.6% 5.7 ? 6.4% - Increased Risk of Developing Diabetes Mellitus 6.5% - Consistent with diagnosis of Diabetes Mellitus In the absence of hyperglycemia (i.e. plasma glucose > 200 mg/dL) or classic symptoms of hyperglycemia a repeat measurement of HbA1c should be performed on a separate sample to confirm the diagnosis. Diagnosis and Classification of Diabetes Mellitus, Diabetes Care 2013; 36: Suppl. 1, S70-71 Estimated Average Glucose 117 mg/dL WILLY KAUR Comment: eAG equivalents for HbA1c percentages: HbA1c(%) ?eAG(mg/dL) 6.0 ?126 6.5 ?140 7.0 ?154 7.5 ?169 8.0 ?183 8.5 ?197 9.0 ?212 9.5 ?226 10.0 ? 240 Limitations: The eAG calculation has not been validated on women, individuals below 18 years old and above 70 years old, and individuals with hemoglobinopathies. Additional resources are available on the ADA website: ??http://professional.diabetes.org/glucosecalculator.aspx Alcides RUFF, José Miguel J, Chase R, et al. ??Translating the A1C assay into estimated average glucose values. ??Diabetes Care 2008:31(8):3498-5189. Blood specimen (specimen) 07/01/2013 3:29 PM EDT 07/01/2013 3:41 PM EDT Narrative Resulting Agency Comment Spec In Lab Liv Andino MD CHEMISTRY ORDERAB LES CERNER MILLENNIUM from Last 3 Months or Most Recently Relevant to Health Maintenance Advance Directives * Full Code (Latest Code Status on File) Date Activated Date Inactivated Comments 04/19/2018 2:47 PM Question Answer Comments Does patient have capacity to make decision: Yes * Full Code Date Activated Date Inactivated Comments 04/19/2018 10:55 AM 04/19/2018 2:47 PM Question Answer Comments Does patient have capacity to make decision: Yes Care Teams Telegraph Messenger Relationship Specialty Start Date End Date Татьяна Koehler PA [address] [place] [address] PCP - General Family Medicine 10/19/19
--- OUTSIDE RECORDS SUMMARY | 2023-10-07 20:51 | XMS_ITS | Encounter Summary ---
Author Organization [facility] [place] [address] Care Team Providers Care Ivory Polisher Name Role Phone Татьяна Koehler Primary Care Provider +1- [phone] Reason for Visit * Reason Onset Date Comments Medication Refill 05/06/2023 Encounter Details Date Type Department Care Team (Late st Contact Info) Description 05/06/2023 Telephone [place] [id number] Liv Andino MD [facility] [place] [address] Medication Refill Social History Tobacco Use Types Packs/Day Years [...] encounter Miscellaneous Notes * Telephone Encounter - Jean Morris - 05/06/2023 3:50 PM EDT NAME OF MEDICATION AND DOSE: ergocalciferoL, vitamin D2, (vitamin D2) 50,000 unit capsule, TAKE 1 CAPSULE BY MOUTH EVERY WEEK [facility] [place] [place] [facility] [address] [facility] [address] [facility] [address] Caller/Patient aware of 1-2 business day process. documented in this encounter Plan of Treatment Not on file documented as of this encounter Visit Diagnoses Not on filedocumented in this encounter Care Teams Ivory Polisher Relationship Specialty Start Date End Date Татьяна Koehler PA [address] [place] [address] PCP - General Family Medicine 10/19/19 documented as of this encounter
--- OUTSIDE RECORDS SUMMARY | 2023-10-07 20:51 | XMS_ITS | Encounter Summary ---
Author [facility] [place] [address] Care Team Providers Care Finance Intern Name Role Phone Татьяна Koehler Primary Care Provider +1- [phone] Reason for Visit * Reason Onset Date Comments Medication Refill 12/05/2022 Encounter Details Date Type Department Care Team ([facility] st Contact Info) Description 12/05/2022 Refill [place] [address] Liv Andino MD [facility] [place] [address] Social History Tobacco Use Types Packs/Day Years [...] on filedocumented in this encounter Care Teams Finance Intern Relationship Specialty Start Date End Date Татьяна Koehler PA [address] [place] [address] PCP - General Family Medicine 10/19/19 documented as of this encounter
--- OUTSIDE RECORDS SUMMARY | 2023-10-07 20:51 | XMS_ITS | Encounter Summary ---
Author Organization [facility] [place] [address] Care Team Providers Care Mid Level Developer Name Role Phone Татьяна Koehler Primary Care Provider +1- [phone] Reason for Visit * Reason Onset Date Comments Medication Refill 04/27/2023 Encounter Details Date Type Department Care Team (Late st Contact Info) Description 04/27/2023 Telephone [place] [phone] Liv Andino MD [facility] [place] [address] Medication Refill Social History Tobacco Use Types [...] * Telephone Encounter - Jean Morris - 04/27/2023 9:02 AM EST NAME OF MEDICATION AND DOSE: testosterone cypionate (DepoTESTOSTERONE Cypionate) (200mg/mL) injection Syringe with Needle, Disp, (BD Luer-Lana Syringe) 3 mL 23 x 1 Syringe PHARMACY NAME: [facility] [address] [id number] Caller/Patient aware of 1-2 business day process. documented in this encounter Plan of Treatment Not on file documented as of this encounter Visit Diagnoses Not on filedocumented in this encounter Care Teams Mid Level Developer Relationship Specialty Start Date End Date Татьяна Koehler PA [address] [place] [address] PCP - General Family Medicine 10/19/19 documented as of this encounter
--- OUTSIDE RECORDS SUMMARY | 2023-10-07 20:51 | XMS_ITS | Encounter Summary ---
Author Organization [facility] [place] [address] Care Team Providers Care Manager Reimbursement Name Role Phone Татьяна Koehler Primary Care Provider +1- [phone] Encounter Details Date Type Department Care Team ([facility] Contact Info) Description 01/19/2023 Telephone Endocrinology at [facility] [place] [address] Dori Lara Social History Tobacco Use Types Packs/Day Years [...] encounter Miscellaneous Notes * Telephone Encounter - Dori Lara - 01/19/2023 11:09 AM ESTSummary: mydh appt cancellation note Appointment canceled for Darvin Sanz ([id number]) Visit Type: MYD-H VIDEO VISIT FOLLOW UP Date Time Length Provider Department 01/21/2023 9:00 AM 30 mins. KIMBERLY HERNANDES [facility] ENDOCRINOLOGY 3B Reason for Cancellation: P-TRANSPORTATION Patient Comments: I???d like to reschedule my appointment because my car is in the garage and I???mnot sure when I???ll get it back documented in this encounter Plan of Treatment Not on file documented as of this encounter Visit Diagnoses Not on filedocumented in this encounter Care Teams Manager Reimbursement Relationship Specialty Start Date End Date Татьяна Koehler PA [address] [place] [address] PCP - General Family Medicine 10/19/19 documented as of this encounter
--- OUTSIDE RECORDS SUMMARY | 2023-10-07 20:52 | XMS_ITS | Encounter Summary ---
Author Organization [facility] Address [facility] [place] [address] Care Team Providers Care Block Trimmer Name Role Phone Татьяна Koehler Primary Care Provider [phone]- [phone] Reason for Referral * Diagnostic Test (Routine) - Closed Specialty Diagnoses / Procedures Referred By Contac t Referred To Contact Radiology Diagnoses Primary osteoarthritis of left hip Procedures XR Fluoro Guided Joint Injection Large Left Deana Lackey APRN [facility] ORTHOPAED[place] [address] [facility] [address] [place] [address] [place] [address] Referral ID Status Reason Start Date Expiration Date V isits Requested Visits Authorized [id number] Closed Specialty Service Requested 11/03/2022 05/03/2024 1 1 Reason for Visit * Diagnostic Test (Routine) - Closed Specialty Diagnoses / Procedures Referred By Contac t Referred To Contact Radiology Diagnoses Primary osteoarthritis of left hip Procedures XR Fluoro Guided Joint Injection Large Left Deana Lackey PYROTECHNIC ASSEMBLER [facility] [place] [address] [facility] [address] [place] [address] [place] [address] Referral ID Status Reason Start Date Expiration Date V isits Requested Visits Authorized [id number] Closed Specialty Service Requested 11/03/2022 05/03/2024 1 1 Encounter Details Date Type Department Care Team (Latest Contact Info) Description 11/10/2022 2:42 PM EDT - 11/10/2022 11:59 PM EDT Hospital Encounter XRay at [address] [place] [address] Deana Lackey APRN [facility] [place] [address] Primary osteoarthritis of left hip Discharge Disposition: Home Social History Tobacco Use Types Packs/Day Years [...] on file documented as of this encounter Discharge Instructions * Patient Instructions* Dov QuintanaPhilly Nora - 11/10/2022 3:28 PM EDT Post Injection Patient Instructions You received an injection by Blayne Person in the diagnostic section of radiology. Procedure: Left hip injection In the days following the injection: Low intensity movement and exercise of the affected joint. Avoid movements that worsen pain. No submersion of the injection site in water for 48 hours (pool/segundo/hot tub, etc.), but you may shower as usual. Keep the injection site dry, clean and covered for 48 hours. If the dressing falls off, you may replace it with a Band-aid. During the first 48 hours following the injection you may experience mild discomfort at the injection site. If you experience pain or discomfort in the affected area, do the following: Apply cold compress to the affected area. No submersion of joint in water for 48-72 hours however showering is okay. If allowed by your physician, take an anti-inflammatory medication such as ibuprofen (example: Advil), Acetaminophen (example: Tylenol) or Aspirin. IMPORTANT The risk of infection exists whenever the skin is punctured. The risk can be minimized by keeping the injection site clean. However, be aware of the following signs of an infection: Redness and swelling at the injection site. Increased pain. Fever and/or chills. Decreased range of motion in the joint near the injection site. When to call the Radiology Department: Please call with any questions or concerns. If it is during regular office hours, please call [phone]. If it is after regular office hours, or on weekends or holidays, please call [phone] and ask to speak to the Lead Presser almond sorter. Revised on 03/18/22 documented in this encounter Medications at Time of Discharge Medication Sig Dispensed Refills Start Date End Date DULoxetine (Cymbalta) 30 mg Capsule, Delayed Release(E.C.) Take 1 capsule by mouth daily. 30 tablet 11 11/23/2020 cabergoline (DOSTINEX) 0.5 mg Tablet Take 1 tablet by mouth twice a week. 25 tablet 3 11/26/2020 Farxiga 5 mg Tablet TAKE ONE TABLET BY MOUTH EVERY DAY 07/10/2020 Insulin Basaglar KwikPen U-100 100 unit/mL (3 mL) pen 22 Units daily. 09/30/2020 NovoLOG Flexpen U-100 Insulin Insulin Pen INJECT PER SLIDING SCALE BEFORE MEALS AND AT BEDTIME MAX 21 UNITS PER DAY 08/02/2020 Vraylar 4.5 mg Capsule daily. 07/28/2019 VENTOLIN HFA 90 mcg/actuation HFA Aerosol Inhaler TAKE ONE TWO PUFFS BY MOUTH EVERY 4 6 HOURS NEEDED FOR WHEEZING 0 08/16/2018 amLODIPine (NORVASC) 5 mg Tablet TAKE ONE TABLET BY MOUTH EVERY DAY DIRECTED 11 12/17/2018 ARIPiprazole (ABILIFY) 10 mg Tablet TAKE ONE TABLET BY MOUTH EVERY MORNING WEAN OFF LATUDA 2 12/01/2018 aspirin 81 mg Tablet, Delayed Release (E.C.) daily. Dr Ordered for Cardiac reasons 5 12/06/2018 atorvastatin (LIPITOR) 20 mg Tablet TAKE ONE TABLET BY MOUTH EVERY EVENING 11 12/25/2018 XOPENEX HFA 45 mcg/actuation HFA Aerosol Inhaler INHALE TWO PUFFS BY MOUTH EVERY 6 HOURS NEEDED FOR SHORTNESS OF BREATH TO REPLACE PROAIR 2 11/22/2018 loratadine (CLARITIN) 10 mg Tablet Take 10 mg by mouth daily. chlorthalidone (HYGROTEN) 50 mg Tablet TAKE ONE TABLET BY MOUTH EVERY DAY 5 12/14/2017 SKLICE 0.5 % Lotion as needed. 1 12/02/2017 INCRUSE ELLIPTA 62.5 mcg/actuation Disk with Device INHALE ONE PUFF BY MOUTH EVERY DAY 5 11/15/2017 DILT-XR 180 mg Capsule,Degradable Cnt Release TAKE ONE CAPSULE BY MOUTH EVERY DAY 5 11/10/2017 methylphenidate HCl (RITALIN) 20 mg Tablet TAKE ONE TABLET BY MOUTH THREE TIMES A DAY 0 11/26/2017 Needle, Disp, 25 G 25 gauge x 5/8 NeedleIndications:Pr olactinoma 1 Units by Misc.(Non-Drug; Combo Route) route every 7 days. 30 each 1 04/27/2017 Needle, Disp, 22 G 22 gauge x 1 Needle 1 each by Misc.(Non-Drug; Combo Route) route every 14 days. 6 each 3 04/01/2017 Syringe, Disposable, 1 mL Syringe 1 each by [facility].(Non-Drug; Combo Route) route every 14 days. Must be luer-lana 12 Syringe 3 12/11/2016 DEXILANT 60 mg Cap, Delayed Rel., Multiphasic Take 60 mg by mouth daily. 5 12/05/2015 diaZEPam (VALIUM) 10 mg Tablet Take 10 mg by mouth 3 times daily as needed. Reported on 05/05/2016 0 01/16/2016 escitalopram (LEXAPRO) 20 mg Tablet Take 20 mg by mouth daily. 3 01/14/2016 HYDROcodone-acetamin ophen (NORCO) 10-325 mg Tablet Take 1 tablet by mouth 4 times daily. Reported on 05/05/2016 0 01/16/2016 furosemide (Lasix) 40 mg Tablet Take 60 mg by mouth daily. Reported on 05/05/2016 celecoxib (CeleBREX) 400 mg capsule Take 400 mg by mouth daily. testosterone cypionate (DepoTESTOSTERONE Cypionate) (200mg/mL) injection INJECT 0.5ML INTO THE MUSCLE ONCE WEEKLY 10 mL 1 04/15/2022 12/05/2022 ergocalciferoL, vitamin D2, (vitamin D) 50,000 unit Capsule Take 1 capsule by mouth once a week. 13 capsule 4 01/07/2022 02/10/2023 Syringe with Needle, Disp, (BD Luer-Lana Syringe) 3 mL 23 x 1 Syringe USE ONE SYRINGE EVERY 7 DAYS 12 each 09/23/2021 04/27/2023 Ozempic 1 mg/dose (2 mg/1.5 mL) Pen Injector Inject 1 mg subcutaneously every 7 days. 9 mL 3 11/23/2020 01/21/2023 documented as of this encounter Plan of Treatment Not on file documented as of this encounter Procedures Procedure Name Priority Date/Time Associated Diagnosis Comments XR FLUORO INJECTION DRAINAGE JOINT LG LEFT Routine 11/10/2022 3:46 PM EDT Primary osteoarthritis of left hip documented in this encounter Results * XR Fluoro Guided Joint Injection Large Left (11/10/2022 3:46 PM EDT) Anatomical Region Laterality Modality Left Radio Fluoroscop y Impressions 11/10/2022 5:10 PM EDT Technically successful left femoral acetabular joint injection under fluoroscopy. Resident/Fellow: None Service Provider: ??Ashlyn Person PA-C Attending of Record: Dr. Marti Harrell MD Preliminary report signed by: ZANE Kapadia at 11/10/2022 3:55 PM I have personally reviewed the image(s) and the provider's interpretation and agree with the findings, Marti Harrell MD at 11/10/2022 5:10 PM Thank you for letting us participate in the care of this patient. ??If you are a health care provider and have any questions regarding this report, please contact the number below. ??For patients who have questions please contact the health neonatal critical care nurse that requested your imaging first. ? Narrative 11/10/2022 5:10 PM EDT LEFT FEMORAL ACETABULAR JOINT INJECTION UNDER FLUOROSCOPY CLINICAL HISTORY: post traumatic LEFT hip OA request a LEFT hip fluoro guided steroid injection TECHNIQUE: After an extensive conversation with the patient regarding risks and benefits, oral and written consent were obtained.?A pre- procedural time-out was performed, including review of the patient's relevant electronic medical record and allergies, as per [facility] protocol. ? The patient was placed supine on the fluoroscopic table. The pannus was positioned out of the way and the skin overlying left hip joint was prepped and draped in the usual aseptic manner. ??The site was marked under fluoroscopic guidance. Images are suboptimal due to patient's body habitus. ??1% Lidocaine was used to achieve local anesthesia. Under fluoroscopic guidance, 20-gauge 6 inch spinal needle was advanced into the joint space. ??I pulled back on the needle and had easy return of straw-colored synovial fliud. ??Small amount of Omnipaque 300 was injected to document needle placement. ??A mixture of Ropivacaine and methylprednisolone was injected easily without resistance. All needles removed at end of procedure. FINDINGS: 1. ??Small amount of injected air in the left femoral acetabular joint space. 2. ??PAIN SCORE: ??Before: 8/10 ??After: 5/10 3. Fluoroscopy time: 0.28 minutes 4. Medications: ??Lidocaine 1% - <5 ml, for subcutaneous anesthesia ??Ropivacaine HCL ??0.5% - 4 ml ??Methylprednisolone - 40 mg 5. Images: Contrast appreciated in the left femoral acetabular joint space COMPLICATIONS: ??None immediate. POST-PROCEDURE CARE: Information regarding monitor of infection, post- procedural pain and management of steroid flare were reviewed with patient. Procedure Note Marti Harrell MD - 11/10/2022 LEFT FEMORAL ACETABULAR JOINT INJECTION UNDER FLUOROSCOPY CLINICAL HISTORY: post traumatic LEFT hip OA request a LEFT hip fluoro guided steroid injection TECHNIQUE: After an extensive conversation with the patient regardingrisks and benefits, oral and written consent were obtained.?A pre- proceduraltime-out was performed, including review of the patient's relevant electronic medicalrecord and allergies, as per [facility] protocol. The patient was placed supine on the fluoroscopic table. The pannus was positioned out of the way and the skin overlying left hip joint wasprepped and draped in the usual aseptic manner. The site was marked underfluoroscopic guidance. Images are suboptimal due to patient's body habitus. 1%Lidocaine was used to achieve local anesthesia. Under fluoroscopic guidance, 20-gauge 6inch spinal needle was advanced into the joint space. I pulled back on theneedle and had easy return of straw-colored synovial fliud. Small amount ofOmnipaque 300 was injected to document needle placement. A mixture of Ropivacaineand methylprednisolone was injected easily without resistance. All needlesremoved at end of procedure. FINDINGS: 1. Small amount of injected air in the left femoral acetabular jointspace. 2. PAIN SCORE: Before: 8/10 After: 5/10 3. Fluoroscopy time: 0.28 minutes 4. Medications: Lidocaine 1% - <5 ml, for subcutaneous anesthesia Ropivacaine HCL 0.5% - 4 ml Methylprednisolone - 40 mg 5. Images: Contrast appreciated in the left femoral acetabular jointspace COMPLICATIONS: None immediate. POST-PROCEDURE CARE: Information regarding monitor of infection, post- procedural pain and management of steroid flare were reviewed withpatient. IMPRESSION Technically successful left femoral acetabular joint injection under fluoroscopy. Resident/Fellow: None Service Provider: Ashlyn Person PA-C Attending of Record: Dr. Marti Harrell MD Preliminary report signed by: ZANE Kapadia at 11/10/2022 3:55PM I have personally reviewed the image(s) and the provider's interpretationand agree with the findings, Marti Harrell MD at 11/10/2022 5:10 PM Thank you for letting us participate in the care of this patient. If youare a health care provider and have any questions regarding this report,please contact the number below. For patients who have questions please contactthe health neonatal critical care nurse that requested your imaging first. Deana Lackey APRN IMG FLUORO ORDERABL ES documented in this encounter Visit Diagnoses Diagnosis Primary osteoarthritis of left hip Primary localized osteoarthrosis, pelvic region and thigh documented in this encounter Administered Medications Inactive Administered Medications - up to 3 most recent administrations Medication Order MAR Action Action Date Dose Rate Site iohexoL (Omnipaque) (300 mg/mL) solution 0-10 mL 0-10 mL, Intra-articular, ONCE, 1 dose, On Thu11/10/22 at 1545, Warning Vesicant/Irritant Medication , Radiology Contrast, Routine Given 11/10/2022 3:45 PM EDT 1 mL Left Hip lidocaine (Xylocaine) 1% (10 mg/mL) injection 0-100 mg 0-100 mg (0-10 mL), Intra-articular, ONCE, 1 dose, On Thu11/10/22 at 1545, Radiology Protocol Medication, Routine Given 11/10/2022 3:45 PM EDT 10 mLs Left Hip methylPREDNISolone acetate (DEPO-Medrol) (40 mg/mL) injection 0-160 mg 0-160 mg, Intra-articular, ONCE, 1 dose, On Thu11/10/22 at 1545, Radiology Protocol Medication, Routine Given 11/10/2022 3:45 PM EDT 40 mg Left Hip ROpivacaine (PF) (Naropin) 0.5% (5 mg/mL) injection 0-50 mg 0-50 mg (0-10 mL), Intra-articular, ONCE, 1 dose, On Thu11/10/22 at 1545, Radiology Protocol Medication, Routine Given 11/10/2022 3:45 PM EDT 4 mLs Left Hip documented in this encounter Care Teams Block Trimmer Relationship Specialty Start Date End Date Татьяна Koehler PA [address] [place] [address] PCP - General Family Medicine 10/19/19 documented as of this encounter
--- OUTSIDE RECORDS SUMMARY | 2023-10-07 20:52 | XMS_ITS | Encounter Summary ---
Author [place] [address] Care Team Providers Care Cloth Classer Name Role Phone Татьяна Koehler Primary Care Provider [phone]- [phone] Reason for Referral * Consultation (Routine) - Closed Specialty Diagnoses / Procedures Referred By Mary t Referred To Contact Orthopaedics Diagnoses Pain in left hip Татьяна Koehler PA [address] [place] [address] [facility] [address] [place] [phone] Referral ID Status Reason Start Date Expiration Date V isits Requested Visits Authorized [id number] Closed Consult, Test & Treat PCP Updated and/or Approved 05/06/2022 05/06/2023 6 6 Encounter Details Date Type Department Care Team ([facility] Contact Info) Description 05/06/2022 Transcribe Orders eDH Incoming Referrals [phone] Татьяна Koehler PA [address] [place], [place] [id number] Pain in left hip Social History Tobacco Use Types Packs/Day Years [...] as of this encounter Plan of Treatment Scheduled Referrals Name Type Priority Associated Diagnoses Order Schedule Referral to Orthopaedics Outpatient Referral Routine Pain in left hip Ordered: 05/06/2022 documented as of this encounter Visit Diagnoses Diagnosis Pain in left hip Pain in joint, pelvic region and thigh documented in this encounter Care Teams Cloth Classer Relationship Specialty Start Date End Date Татьяна Koehler PA [address] [place] [address] PCP - General Family Medicine 10/19/19 documented as of this encounter
--- OUTSIDE RECORDS SUMMARY | 2023-10-07 20:52 | XMS_ITS | Encounter Summary ---
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
--- OUTSIDE RECORDS SUMMARY | 2023-10-07 20:52 | XMS_ITS | Encounter Summary ---
Author Organization [facility] Address [facility] [place] [address] Care Team Providers Care Condenser Winder Name Role Phone Татьяна Koehler Primary Care Provider [phone] Encounter Details Date Type Department Care Team (Latest Contact Info) Description 11/23/2020 9:00 AM EDT TH Visit (TeleHealth) [place] [id number] Liv Hernandes MD [facility] [address] Hypogonadism male; Prolactinoma; Other fatigue; Morbid obesity with BMI of 60.0-69.9, adult; Vitamin D deficiency; Controlled type 2 diabetes [...] Sign Reading Time Taken Comments Blood Pressure - - Pulse 75 11/23/2020 2:40 PM EDT Temperature - - Respiratory Rate 12 11/23/2020 2:40 PM EDT Oxygen Saturation - - Inhaled Oxygen Concentration - - Weight 195 kg (430 lb) 11/23/2020 2:40 PM EDT Height 177.8 cm (5' 10) 11/23/2020 2:40 PM EDT Body Mass Index 61.7 11/23/2020 2:40 PM EDT documented in this encounter Patient Instructions * Patient Instructions* Liv Hernandes MD - 11/23/2020 9:00 AM EDT Assessment and Plan: 50 y.o. 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 His PRL remained slightly high at 30s on cabergoline 0.5 mg twice per week. He also has central hypogonadism due to a combination of his extreme weight, hyperPRL and perhaps the opioids that he is on. He is currently on testosterone cypionate 80 mg (0.4 ml) weekly subcutaneously. He still is in the process of trying to qualify [...] CHF (EF 40s%) during the interim. He is now on Basaglar, Novolog and Farxiga, victoza 1.8 mg daily => if affordable, we'd switching victoza daily to ozempic 1 mg sc weekly to help him lose wt and reduce cardiovascular outcome. He is checking FSBG 4-5x/day (avg 109-130 mg/dl) and his PCP is alreadyworking on getting Dexcom G6 CGM for him. He has lost 40 lbs over the past year! We suggested to Shasta that we check some labs including a free and total testosterone, PRL, TSH, FT4, CBC, CMP, PSA, A1c, 25vitamin D. I will adjust his testosterone dose accordingly. We did emphasize to him that I think in the long run bariatric surgery is the best treatment he canhave to feel better and to be healthy long-term. I encouraged him to continue follow-up with [facility]. When I get the results of his tests I will recommend to Shasta when and how to follow-up in endocrinology : 6-12 months, at least annually or sooner if indicated. Lab orders were placed for him to do soon at [facility] for annual endocrine lab as below: Orders Placed This Encounter Procedures ??? Testosterone, total and free ??? Prolactin ??? PSA (Ultrasensitive) ??? CBC (with Diff) ??? Hemoglobin A1c ??? TSH ??? Comprehensive metabolic panel (non-fasting) ??? Lipid Panel (Reflex Direct LDL) ??? Vitamin D, 25-Hydroxy ??? U Albumin/Cre Ratio ??? T4, free Liv Hernandes MD, PhD, FACE, FACP documented in this encounter Progress Notes * Liv Hernandes MD - 11/23/2020 9:00 AM EDT Subjective: ENDOCRINE FOLLOW UP NOTE Name: Shasta Sanz : 1970 MRN: .[id number] PCP: ZANE Ulloa Date: 11/23/20 Patient verbally consents to this telehealth visit and understands that this visit may be billed, similar to a clinic office visit. I provided care to the patient today via VDO or Phone call. The total time associated with this visit, chart review, documentation, and coordination of care was 30 minutes. Patient ID: Shasta Sanz is a 50 y.o. male who is scheduled to see me to transition care from Dr. Durand who recently retired. Last visit at Endocrine Clinic with Dr. Durand was on 12/01/19 almost a year ago. HPI: I have seen Shasta about 10 year ago on 12/23/2010 for consultation of central hypogonadism and hyperprolactinenia (PRL 99) what appears to be a micro- prolactinoma (negative MRI Brain on 09/20/2010), for which he is on cabergoline 0.5 mg twice per week. He also has what appears to be idiopathic hypogonadism despite having normalized PRL on Rx that is probably a combination of his weight (BMI >60)and perhaps the opioids that he is on. He is currently on testosterone cypionate 100 mg weekly subcutaneously. He still is in the process of trying to qualify for bariatric surgery but says he was told he has to lose some weight. He used to have prediabetes (A1c 5.9%) when I was first saw him and started him on metformin in 2010 and then he has been follow-up with PCP for Type 2 DM with CAD and CHF (EF 40s%) during the interim. He is now on Basaglar down from 30 to 23u qhs, Novolog qid prn, Farxiga 5 mg qd, victoza 1.8 mg sc qd => if affordable, we'd switching victoza daily to ozempic weekly to help him lose wt and reduce cardiovascular outcome. He is checking FSBG 4-5x/day (avg 109-130 mg/dl) and his PCP is already working on getting Dexcom G6 CGM for him. He has lost 40 lbs over the past year which is excellent! He used to have low vitamin D at 17 (12/23/2010) and started on vitamin D 50,000 iu weekly and thenquit it long ago. Will recheck lab tests today. Review of Systems Constitutional: A bit tired, no recent weight change (per our record down from 453 in 2019 to 446 lbs in 2020 and 430 lb now), no heat or cold intolerance Endocrine: No thyroid problems. No abnormal sweating or flushing. Some intermittemt galactorrhea and breast tenderness with itchy nipples No difficulty with erection. Integument: No ulcerations. No easily bruising. Neurological: +some migraine headache. No weakness. No seizure, fainting or dizziness [...] anxiety Patient Active Problem List Diagnosis Code ??? Hypogonadism male E29.1 ??? Pre-diabetes R73.03 ??? Hyperprolactinemia E22.1 ??? Obesity E66.9 ??? HTN (hypertension) I10 ??? Dyslipidemia E78.5 ??? GERD (gastroesophageal reflux disease) K21.9 ??? Anxiety F41.9 ??? Depression F32.A ??? JOSE DE JESUS (obstructive sleep apnea) G47.33 ??? Galactorrhea N64.3 ??? Tobacco user Z72.0 ??? ED (erectile dysfunction) N52.9 ??? Decreased libido R68.82 ??? Fatigue R53.83 ??? CORDERO (headache) R51.9 ??? 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 Prolactinoma D35.2 ??? Atherosclerosis of oneida coronary artery of oneida heart without angina pectoris I25.10 ??? COPD (chronic obstructive pulmonary disease) J44.9 ??? Left heart failure with left ejection fraction 41-49 percent I50.1 ??? Migraine G43.909 ??? Narcolepsy G47.419 Social History Tobacco Use ??? Smoking status: Former Smoker Packs/day: 1.50 Types: Cigarettes Quit date: 08/23/2017 Years since quittin.2 ??? Smokeless tobacco: Never Used Vaping Use ??? Vaping Use: Every day Substance Use Topics ??? Alcohol use: No Comment: rarely ??? Drug use: Not on file Comment: occasionally Family History Problem Relation Age of Onset ??? Coronary Artery Disease Mother ??? Obesity Mother ??? Heart Disease Mother ??? High Blood Pressure Father ??? Obesity Father ??? Cancer Father ??? Diabetes Maternal Aunt ??? Thyroid Disease Maternal Aunt Results for FRANTZ SHASTA Jennifer ( ) as of 11/23/2020 Ref. Range [...] AST 48, likely due to fatty liver Addendum: outside lab on 11/28/20 Testosterone 518 Free Testos 14.5 (normal 4.1-15.6) almost high => will change weekly to q 10 days shots for Depot testosterone PRL 15.8, OK (was high at 32-34 prior) TSH 1.7 FT4 1.09, ok for thyroid A1c 5.7%, excellent diabetes control CBC Ok (Hb 14.8, Hct 46.6) CMP All normal, BG 95, Ca 8.9, Cr 0.9 25vitamin D 16.4, very low (normal 30-100) => Start vitD 50,000 iu weekly and recheck lab in 3 months *called pt for lab results & Rx plan to start vitD weekly and lengthen the interval of Depot Testosterone shot weekly to q 10 days. Assessment and Plan: 50 y.o. 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 His PRL remained slightly high at 30s on cabergoline 0.5 mg twice per week. He also has central hypogonadism due to a combination of his extreme weight, hyperPRL and perhaps the opioids that he is on. He is currently on testosterone cypionate 80 mg (0.4 ml) weekly subcutaneously. He still is in the process of trying to qualify [...] CHF (EF 40s%) during the interim. He is now on Basaglar, Novolog and Farxiga, victoza 1.8 mg daily => if affordable, we'd switching victoza daily to ozempic 1 mg sc weekly to help him lose wt and reduce cardiovascular outcome. He is checking FSBG 4-5x/day (avg 109-130 mg/dl) and his PCP is alreadyworking on getting Dexcom G6 CGM for him. He has lost 40 lbs over the past year! We suggested to Shasta that we check some labs including a free and total testosterone, PRL, TSH, FT4, CBC, CMP, PSA, A1c, 25vitamin D. I will adjust his testosterone dose accordingly => change to q10 days shots. We did emphasize to him that I think in the long run bariatric surgery is the best treatment he canhave to feel better and to be healthy long-term. I encouraged him to continue follow-up with [facility]. When I get the results of his tests I will recommend to Shatsa when and how to follow-up in endocrinology : 6-12 months, at least annually or sooner if indicated. Lab orders were placed for him to do soon at [facility] for annual endocrine lab as below: Orders Placed This Encounter Procedures ??? Testosterone, total and free ??? Prolactin ??? PSA (Ultrasensitive) ??? CBC (with Diff) ??? Hemoglobin A1c ??? TSH ??? Comprehensive metabolic panel (non-fasting) ??? Lipid Panel (Reflex Direct LDL) ??? Vitamin D, 25-Hydroxy ??? U Albumin/Cre Ratio ??? T4, free Addendum 12/20/20: *called pt for lab results & Rx plan to start vitD weekly and lengthen the interval of Depot Testosterone shot weekly to q 10 days. - Will need to recheck lab in 2 mo for PSA (not done as ordered yet) , 25vitD, Testos/free Testos, urine microalbumin/Cr then. - Please let him know and efax lab orders to his local lab too, Marcie. Thanks! MD Liv COSME MD, PhD, FACE, FACP documented in this encounter Miscellaneous Notes * Addendum Note - Liv Hernandes MD - 11/23/2020 9:00 AM EDTAddended by: LIV HERNANDES on: 11/23/2020 02:54 PM Modules accepted: Orders, Level of Service * Addendum Note - Liv Hernandes MD - 11/23/2020 9:00 AM EDTAddended by: LIV HERNANDES on: 11/23/2020 04:40 PM Modules accepted: Orders * Addendum Note - Liv Hernandes MD - 11/23/2020 9:00 AM EDTAddended by: LIV HERNANDES on: 12/20/2020 04:43 PM Modules accepted: Orders * Addendum Note - Liv Hernandes MD - 11/23/2020 9:00 AM EDTAddended by: LIV HERNANDES on: 12/20/2020 04:54 PM Modules accepted: Orders * Addendum Note - Liv Hernandes MD - 11/23/2020 9:00 AM EDTAddended by: LIV HERNANDES on: 12/21/2020 01:39 PM Modules accepted: Orders documented in this encounter Plan of Treatment Not on file documented as of this encounter Visit Diagnoses Diagnosis Hypogonadism male Other testicular hypofunction 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) Other fatigue Morbid obesity with BMI of 60.0-69.9, adult Morbid obesity Vitamin D deficiency Unspecified vitamin D deficiency Controlled type 2 diabetes mellitus with hyperglycemia, with long-term current use of insulin Urinary frequency documented in this encounter Care Teams Condenser Winder Relationship Specialty Start Date End Date Татьяна Koehler PA [address] [place] [address] PCP - General Family Medicine 10/19/19 documented as of this encounter
--- OUTSIDE RECORDS SUMMARY | 2023-10-07 20:52 | XMS_ITS | Encounter Summary ---
Author Organization [facility] Address [facility] [place] [address] Care Team Providers Care Scrip Clerk Name Role Phone Татьяна Koehler Primary Care Provider [phone] Reason for Visit * Reason Comments Weight Management Follow-up Encounter Details Date Type Department Care Team (Latest Contact Info) Description 01/10/2019 2:00 PM EST Office Visit Weight and Wellness at [address] [id number] Carolynn Arnold MD [facility] [place] [address] Morbid obesity with BMI of 60.0-69.9, adult; Hyperlipidemia, unspecified hyperlipidemia type; JOSE DE JESUS treated with BiPAP Social History Tobacco Use Types Packs/Day Years [...] Sign Reading Time Taken Comments Blood Pressure 137/94 01/10/2019 1:42 PM EST Pulse 71 01/10/2019 1:42 PM EST Temperature - - Respiratory Rate 18 01/10/2019 1:42 PM EST Oxygen Saturation 95% 01/10/2019 1:42 PM EST Inhaled Oxygen Concentration - - Weight 205 kg (452 lb) 01/10/2019 1:42 PM EST Height 177.8 cm (5' 10) 01/10/2019 1:42 PM EST Body Mass Index 64.86 01/10/2019 1:42 PM EST documented in this encounter Patient Instructions * Patient Instructions* Carolynn Arnold MD - 01/10/2019 2:00 PM EST Images from the original note were not included. Please call your insurance company and the bariatric surgery clinic to confirm that you have met their requirements for seeing a dietitian (usually 3 sessions close to your surgery date), and confirmthat your recent psychological evaluation also meets their criteria GOALS 1) Chair exercises twice a day--our nurse Gene will reach out with recommendations 2) Walk around your parking lot several times per day (weather permitting) 3) Cut down on fast food--no more than once a week 4) Continue to focus on smaller portion sizes and high-protein foods (see handout below) BARIATRIC SURGERY Bariatric surgery is an effective treatment for obesity. However, without appropriate screening andpreparation, the likelihood of long-term success may not outweigh the risks of the procedure. As a result, there are a number of requirements before being considered for bariatric surgery at [facility], asoutlined below: ?? Clearance from your insurance company--not all insurance companies pay for the procedure ?? Attendance at a monthly bariatric surgery information session (held the thursday every monthfrom 2-4 pm at [facility]) ?? You must be between ages 21 and 70 (ages 21 - 25 and 60 - 69 require extra review by the bariatric surgery team) ?? If you have any history of mental health diagnoses, you must receive clearance from a psychologist or psychiatrist ?? Participation in at least three dietary counseling sessions (led by a dietitian) to ensure you understand the diet changes required prior to and after bariatric surgery ?? No plans for or 1 year before or 1 - 2 years after the procedure ?? You and your primary care doctor must ensure all health maintenance is up to date: ?? Men and women: colonoscopy if over age 50 ?? Women only: mammogram if over age 40, as well as completion of routine pap smears ?? If you are diabetic, your diabetes must be under good control (hemoglobin A1c less than 8.0%) ?? If you have been diagnosed with high blood pressure, it must be well- controlled on your current medications ?? If there is concern for sleep apnea (or known sleep apnea), you must be fully evaluated--and appropriately treated--by the sleep center ?? If you are a smoker, you must be completely abstinent from cigarettes for at least 2 months ?? If you have a history of alcohol or drug abuse, you must be free of those substances for at least 2 years ?? If you have a history of acid reflux (GERD) or use NSAIDs (Advil, Aleve, Naprosyn, etc) on a regular basis, you may need an upper endoscopy by a hand ornament maker The FDA has approved several weight loss medications. These medications are only effective when used along with healthy dietary choices and regular exercise. Weight loss medications are considered effective if they help you lose 5-10% of your weight. If youdo not lose 5-10% of your body weight after being on a weight loss medication for 3 months, the medication is usually stopped. These medications require frequent monitoring--most people are seen by their doctor each month, andeventually visits are spaced out to every three months. None of these medications (with the possible exception of metformin) are safe for use during . Current weight loss medications are listed below: ?? Qsymia: A combination medication made up of two drugs, phentermine and topiramate. (Each drug can also be prescribed separately for weight loss--see below for details on each medication.) ?? Phentermine: Phentermine is a stimulant. ??It can increase anxiety and cause jitteriness and sleep disturbances in some people. ??It has a very small potential for abuse, and is a controlled substance. It should be avoided in people with a history of cardiovascular disease (including prior heartattack, known aneurysms or prior strokes), as well as a history of uncontrolled high blood pressureor tachyarrhythmias ??(fast heart rate) . It should also be avoided in patients with hyperthyroidism (over-active thyroid), seizures, severe anxiety, narrow angle glaucoma or bipolar disorder. Patients on this medication should be monitored with regards to blood pressure and heart rate. Potential si de effects include (but are not limited to) palpitations, jitteriness, headaches, insomnia, constipation and eye pain. Patients should take phentermine before breakfast. They should avoid ??energy drinks, decongestants, and excessive caffeine while on phentermine. They should monitor their blood pressure at home (andbe encouraged to purchase a blood pressure cuff). It should not be used in . ?? Topiramate: Traditionally used for treating seizures and migraine headaches, but has also been shown to produce weight loss. Topiramate is used at low doses and is usually well tolerated, but can cause fatigue, tingling of the hands and feet, or mental fogginess. ??It should not be used in someone who has had frequent kidney stones, because it can increase your risk of additional kidney stones. It can cause defects, and women of childbearing age must use two methods of contraception (for example, condoms and a control pill) and perform monthly tests at home. ?? Contrave: A combination medication made up of a commonly used antidepressant called bupropion, and an opioid receptor patricio called naltrexone. ??Bupropion can have a mild stimulant effect, and sometimes worsens anxiety. Naltrexone sometimes causes nausea and is used in very small doses. This medication cannot be used in people who have seizure disorder, severe anxiety, uncontrolled migraine disorder, atherosclerotic vascular disease, uncontrolled high blood pressure, use opioids, or have ahistory of anorexia or bulimia. It can be especially helpful in people who are smokers or people with depression. Potential side effects include worsening migraines, increases in blood pressure, worsening depression, or new suicidal thoughts. Naltrexone must be stopped 3-4 days any procedure that requires anesthesia. ?? Metformin: A medication used to treat diabetes and pre-diabetes, and which often produces a small amount of weight loss. (Metformin is helpful for weight loss in about one third of patients who take it.) ??It can be useful in slowing or helping to prevent the progression from pre-diabetes to diabetes. ??It can cause gastrointestinal side effects such as nausea and diarrhea. ??If ??started at alow dose and increased gradually, it is usually well-tolerated. It should not be used in people with low kidney function or severe liver disease. Metformin can be also be helpful for people who gain weight on certain psychiatric medications or have polycystic ovary syndrome. ?? Belviq: A weight loss medication that acts on the serotonin system in the brain to decrease appetite. The generic name for this medication is lorcaserin. This medication should not be used in people with a history of congestive heart failure, valvular heart disease, significantly slow heart rate, or uncontrolled mood disorders. It should also be avoided in patients on SSRIs anti-depressants oranti-dopaminergic agents. Potential side effects include (but are not limited to) serotonin syndrome and mood alterations. ?? Victoza/Saxenda: This medication, also know as liraglutide, is a medication that was initially developed to treat diabetes, but is now also used for weight loss in people with and without diabetes. This medication requires a daily injection into your skin. It should not be used by people who have a personal or family history of medullary thyroid cancer, pancreatic cancer or MEN type 2. It should not be used in most people who have had episodes of pancreatitis. ??Common side effects can include GI upset (nausea, vomiting, diarrhea, constipation), although these side effects normally improveafter a few weeks on the medication. Patient Education Learning About Getting More Protein How does your body use protein? Protein is an essential part of our diets. It is made up of chemicals called amino acids. Your bodyneeds protein to help build and repair muscle, skin, and other body tissues. Protein also helps fight infection, balance body fluids, and carry oxygen through the body. How much protein do you need? How much protein you need each day depends on your age, sex, and how active you are. It's recommended that most adults eat 5 to 7 ounces of protein foods a day. Sometimes you may need to eat more protein. Your doctor may advise you on the right amount of protein you need. What foods contain protein? Protein is found in a variety of foods. High-protein foods include lean meat, poultry, and fish. A serving of these foods is 2 to 3 ounces. (3 ounces is about the size and thickness of a deck of cards.) Protein isn't just found in meat. If you are looking for other types of protein, the following foods are equal to about 1 ounce of meat: ? cup of cooked beans, peas, or lentils ? cup of tofu (about 2 ounces) ?? 2 Tbsp of hummus ? ounce of nuts or seeds (for example, 12 almonds or 7 walnut halves) ?? 1 egg ?? 1 Tbsp of peanut butter or other nut or seed butter Other sources of protein include cheese, milk, and other milk products. You can also buy protein bars, drinks, and powders. Check the nutrition label for the amount of protein in each serving. What are some tips for getting more protein? You can get more protein in your food by adding high-protein ingredients. For example, you can: ?? Add powdered milk to other foods, such as pudding or soups. ?? Add powdered protein to fruit smoothies and cooked cereal. ?? Add beans to soup and chili. ?? Add nuts, seeds, or wheat germ to yogurt. You can also: ?? Spread peanut butter onto a banana. ?? Mix cottage cheese into noodle dishes or casseroles. ?? Sprinkle hard-boiled eggs on a salad. ?? Grate cheese over vegetables and soups. Where can you learn more? Visit our health information library at http://atCollab/Giftaho. You can also view health information on [employer], your personal patient account. Log in or sign uptoday. Enter X375 in the search box to learn more about Learning About Getting More Protein. Current as of: December 30, 2017 Content Version: 12.2 ?? 0170-4034 [employer]. Care instructions adapted under license by [facility]. If you have questions about a medical condition or this instruction, always ask your healthcare professional. [employer] disclaims any warranty or liability for your use of this information. documented in this encounter Progress Notes * Carolynn Arnold MD - 01/10/2019 2:00 PM EST [facility] Visit Patient Name: Darvin Sanz Date of : 1970 Age: 48 y.o. ZANE Ulloa Thank you for referring Darvin Sanz to the [facility] for consultation regarding obesity. CHIEF COMPLAINT: Follow-up for Obesity INTERVAL HISTORY / PROGRESS TOWARD GOALS: [x] I reviewed past / interim records including notes and labs. Darvin is here today for [facility]; unfortunately, it wasscheduled as a follow-up visit, so today's visit was limited to 30 minutes. He is interested in pursuing bariatric surgery, and has been encouraged by the bariatric surgery clinic to lose 20 pounds, with a goal weight of 433 pounds. He has had 3 dietary counseling sessions through his local hospital. He reports he received psychological evaluation through his local hospital. He reports that his primary care PA has provided a letter of support and that his health maintenance is up-to-date. He reports that weight has been an issue since his late 20s. Highest weight in adulthood was just under 500 pounds in his early 40s. Weight has trended up since his 20s with small ups and downs in the last few years. 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 He denies a history of emotional eating, but says I'm not really sure--it could be. He denies a history of binge eating unless he goes to a [employer] buffet--this happens a few times a year, and he will eat until he develops abdominal pain. Lowest weight in adulthood was 180 pounds around age 18. Prior weight loss attempts have included calorie tracking through [employer], low-calorie diets--he reports those worked, but I was always hungry. He has not used [id number] or prescription weight loss medications in the past. He reports that the importance of making a change is 10 out of 10, while his confidence to do so is3 out of 10 without surgery, and 8 out of 10 with surgery. Family history of obesity: Maternal side--mother, aunts, uncles, some cousins 24 hour diet recall - Breakfast: Skipped - Lunch: 1 chicken sandwich from [facility] - Dinner: 2 chicken sandwiches from [facility] - Snacks: Several handfuls of Cheddar Chex Mix - Drinks: 3 cups of coffee with sweetened creamer, two 20-oz bottles diet soda - Dessert: None Exercise: None currently PREVIOUS LABS: Lab Results Component Value Date CHLPL 178 12/23/2010 Lab Results Component Value Date HDL 35 (L) 12/23/2010 Lab Results Component Value Date LDLCHOL 113 (H) 12/23/2010 Lab Results Component Value Date TRIG 152 (H) 12/23/2010 Lab Results Component Value Date CHOLHDL 5.1 12/23/2010 Lab Results Component Value Date HA1C 5.7 (H) 07/01/2013 No results found for: GLUCFASTING Lab Results Component Value Date AST 20 07/28/2014 ALT 30 07/28/2014 [facility] Followup Responses 01/11/2018 URICA - Readiness Score 9.66 (Contemplation State) WEL-SF Total Scores 69 PROMIS 6B Scores 35.1 PHQ-2 SubScore 6 (Full PHQ-9 indicated) PHQ-9 Total Scores 18 (Moderately Severe Depression) GAD2 Subscore 6 (Full SHEREE-7 indicated) SHEREE 7 Total Scores 14 (Moderate Anxiety) PROMIS 10 Physical Scores 32.4 PROMIS 10 Mental Scores 25.1 IPAQ - SF Scores 3 Total REAP-S Scores 32 TFEQ - Uncontrolled Eating (UE) 40.74 TFEQ-Cognitive Restraint (CR) 77.77 TFEQ-Emotional Eating 33.33 Food Insecurity Score 3 Days absent from work/school because of weight Not applicable Worried food would run out before we got money to buy more Sometimes true Food didnt last; no money to get more Never true REVIEW OF SYSTEMS: see above HPI for additional pertinent +/- findings Constitutional: Variable appetite and low energy. Psychiatric: Anxiety < depression--he reports I take it day to day--currently being tapered off Latuda and starting Abilify; followed monthly by his psychiatrist per his report VITAL SIGNS: Vitals: 01/10/19 1342 BP: (!) 137/94 Pulse: 71 Resp: 18 SpO2: 95% Weight: (!) 205 kg (452 lb) Height: 177.8 cm (5' 10) Body mass index is 64.86 kg/m??. Last 5 weight values: Wt Readings from Last 5 Encounters: 01/10/19 (!) 205 kg (452 lb) 09/06/18 (!) 205.5 kg (453 lb) 04/16/18 (!) 203.7 kg (449 lb) 01/11/18 (!) 196.7 kg (433 lb 9.6 oz) 04/27/17 (!) 180.4 kg (397 lb 12.8 oz) PHYSICAL EXAM: Gen: Alert and active, NAD. +Central adiposapthy, +disheveled-appearing HEENT: NC/AT, MMM, +poor dentition Neck: Supple and thick Neuro: Alert and oriented Psych: NL affect today SUMMARY OF VISIT AND RECOMMENDATIONS: Darvin Sanz was seen in follow up today and an updated medical, diet and activity review was completed. Additional goals were set for changes in health habits (see below) as was a plan for evaluation and treatment of obesity related co-morbidities. Medical issues and plan: Class III Obesity: ?? Darvin is here today for his initial visit in anticipation of bariatric surgery; unfortunately, hewas booked for a 30-minute visit instead of a 60- minute visit, so our ability to cover relevant topics was significantly limited. He is actively pursuing bariatric surgery, and reports that he has received a letter of support from his PCP, has his health maintenance up-to-date, and has completed dietary counseling and his psychological exam through his local hospital. He reports rare social alcohol intake, and is a non-smoker. He reports his last A1c was 5.5%. He reports he uses his BiPAP faithfully every night. ?? Contact the bariatric surgery clinic to clarify whether last year's external dietary counseling and psychological evaluations are considered adequate--if not, consider arranging through the [facility] asneeded ?? Weight loss medications were reviewed in detail today--given his current use of methylphenidate,he is not a candidate for phentermine or Qsymia; his current use of antidepressants limits the use of Belviq; his current use of opioids limits the use of Contrave, and he is not diabetic or pre-diabetic ?? Goal setting: ?? Begin chair exercises twice a day--reviewed in clinic by our nurse Judd today ?? Walk around your parking lot several times per day (weather permitting) ?? Cut down on fast food--no more than once a week ?? Continue to focus on smaller portion sizes and high-protein foods (see handout below) Hyperlipidemia: ?? Nutrition and activity recommendations to promote healthy weight ?? Continue statin JOSE DE JESUS: ?? Continue BiPAP as prescribed F/u in: 1 - 3 months pending feedback from bariatric surgery clinic I spent a total of 30 minutes with the patient 25 minutes of which were spent in [id number] discussion/counseling re obesity, nutrition and activity as well as obesity related co-morbidities documented in this encounter Plan of Treatment Not on file documented as of this encounter Visit Diagnoses Diagnosis Morbid obesity with BMI of 60.0-69.9, adult Morbid obesity Hyperlipidemia, unspecified hyperlipidemia type JOSE DE JESUS treated with BiPAP documented in this encounter Care Teams Scrip Clerk Relationship Specialty Start Date End Date Татьяна Koehler PA [address] [place] [address] PCP - General Family Medicine 10/19/19 documented as of this encounter
--- OUTSIDE RECORDS SUMMARY | 2023-10-07 20:52 | XMS_ITS | Encounter Summary ---
Author Organization [facility] [place] [address] Care Team Providers Care Research Statistician Name Role Phone Татьяна Koehler Primary Care Provider [phone]- [phone] Reason for Visit * Reason Onset Date Comments Error 01/07/2022 Encounter Details Date Type Department Care Team ([facility] st Contact Info) Description 01/07/2022 Telephone [place] [id number] Luis Chen RN Error Social History Tobacco Use Types Packs/Day Years [...] encounter Miscellaneous Notes * Telephone Encounter - Luis Chen RN - 01/07/2022 2:11 PM EST Error- patient ended up showing up for telehealth visit in person. documented in this encounter Plan of Treatment Not on file documented as of this encounter Visit Diagnoses Not on filedocumented in this encounter Care Teams Research Statistician Relationship Specialty Start Date End Date Татьяна Koehler PA [address] [place] [address] PCP - General Family Medicine 10/19/19 documented as of this encounter
--- OUTSIDE RECORDS SUMMARY | 2023-10-07 20:52 | XMS_ITS | Encounter Summary ---
Author Organization [facility] [place] [address] Care Team Providers Care Health And Human Performance Professor Name Role Phone Татьяна Koehler Primary Care Provider +1- [phone] Reason for Referral * Diagnostic Test (Routine) - Closed Specialty Diagnoses / Procedures Referred By Contgreyson t Referred To Contact Radiology Diagnoses Primary osteoarthritis of left hip Procedures XR Fluoro Guided Joint Injection Large Left Deana Lackey APRN [facility] [place] [address] [facility] Rad Xray [address] [place] [address] [place] [address] Referral ID Status Reason Start Date Expiration Date V isits Requested Visits Authorized [id number] Closed Specialty Service Requested 11/03/2022 05/03/2024 1 1 * Consultation (Routine) - Closed Specialty Diagnoses / Procedures Referred By Contgreyson t Referred To Contact Weight and Wellness Diagnoses Class 3 severe obesity due to excess calories with serious comorbidity and body mass index (BMI) greater than or equal to 70 in adult Deana Lackey APRN [facility] [place] [address] [facility] Weight [facility]ness [facility] [place] [address] Referral ID Status Reason Start Date Expiration Date V isits Requested Visits Authorized [id number] Closed Consult, Test & Treat 10/31/2022 10/31/2023 1 1 Reason for Visit * Reason Comments Hip Pain XR (IN EDH) II L HIP PAIN NO KNOWN INJURY * Consultation (Routine) - Closed Specialty Diagnoses / Procedures Referred By Mary wright Referred To Contact Orthopaedics Diagnoses Left hip pain Татьяна Koehler PA [address] [place] [address] [facility] Orthopaedics [address] [place] [id number] Referral ID Status Reason Start Date Expiration Date V isits Requested Visits Authorized [id number] Closed Consult, Test & Treat PCP Updated and/or Approved 08/19/2022 08/19/2023 6 6 Encounter Details Date Type Department Care Team (Latest Contact Info) Description 10/31/2022 1:20 PM EDT Office [place] [address] Deana Lackey APRN [facility] [place] [address] Primary osteoarthritis of left hip (Primary Dx); Class 3 severe obesity due to excess calories with serious comorbidity and body mass index (BMI) greater than or equal to 70 in adult Social History Tobacco Use Types Packs/Day Years [...] on file documented as of this encounter Progress Notes * Deana Lackey APRN - 10/31/2022 1:20 PM EDT Images from the original note were not included. Arthroplasty History/Previous Hip Surgery: Age 5 left hip fracture ORIF acetabular screw fixation Chief Complaint: Chronic LEFT hip pain This patient was referred from [facility] [address] [place] [address] I.D.: Darvin Sanz is a 51 y.o. year old male pre-diabetic (hemoglobin A1C ~ 5.8, former smoker, morbid obesity, GERD, sleep apnea who is being seen today to discuss his left hip. His history and physical exam were reviewed in detail. He states the hip has been symptomatic for at least 3 years . There was no recent inciting trauma/injury. Left hip fracture at age 5 with acetabular screw fixation. He does describe hip pain, does report groin pain, does endorse thigh pain and does feel as if he walks with a limp. There is Some radiation of the pain not below his knee. Aggravating factors include all ADL's, walking, sequential stair climbing. Alleviating factors include relative rest, avoidance of painful activity. He can walk very short distances and does not use assistive devices. He climb stairs and does use the railing. He does have difficulty putting on his shoes and socks. He can sit comfortably in a chair. He has not had tried injections into the joint. He has tried APAP and percocet chronic Pain meds (PCP helps with chronic pain). Mr. Sanz denies No fevers/chills/headache/chest pain/shortness of breath/abdominal pain/nausea or vomiting/weight changes He does not endorse a history of DVT/PE or clotting disorder. ASSOCIATED DIAGNOSES: He does not reports problems with the contralateral hip, does not report problems with the ipsilateral knee and does have a history of spine or back issues. ALLERGIES Allergies Allergen Reactions Ibuprofen Other (See Comments) GI bleed Allergies to metals: NONE reported. SOCIAL HISTORY: reports that he quit smoking about 5 years ago. His smoking use included cigarettes. He smoked an average of 1.5 packs per day. He has never used smokeless tobacco. Drug: Marijuana. He reports that he does not drink alcohol. Occupation: Not working Hobbies: low demand hobbies around the house SIGNIFICANT MEDICAL [employer] MORBIDITIES: Past Medical History: Diagnosis Date Anxiety Depression GERD (gastroesophageal reflux disease) Headache(784.0) Hypertension Patient Active Problem List Diagnosis Code Hypogonadism male E29.1 Pre-diabetes R73.03 Hyperprolactinemia E22.1 Obesity E66.9 HTN (hypertension) I10 Dyslipidemia E78.5 GERD (gastroesophageal reflux disease) K21.9 Anxiety F41.9 Depression F32.A JOSE DE JESUS (obstructive sleep apnea) G47.33 Galactorrhea N64.3 Tobacco user Z72.0 ED (erectile dysfunction) N52.9 Decreased libido R68.82 Fatigue R53.83 CORDERO (headache) R51.9 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 PHYSICAL EXAM: Constitution: Patient sits in the clinic today in no apparent distress. The patient is alert and oriented x 3. Appearance is age-appropriate, affect is similarly appropriate. Arrives in a motorized scooter. Here with his Son who is very helpful with History taking. I have made the following determinations: Due to body habitus unable to reliably/safely transfer to the exam table. Exam of the LEFT hip in the scooter. SLR capability. No open sore/lesions/abrasion of the foot I did attempt to examine the abdominal panus/skin fold with no apparent infections, or open sores. He tells me that he does not have any active infections on the skin of the anterior hip. No IR of the hip with pain. ER: ~ 25 degrees. No pain with heel strike. No lateral GTB pain. Motor/Sensory: Left Distal Motor: Normal Distal Sensory: Normal Hip Abductors: 5 Trendelenburg test: unable to reliably assess Radiographic evidence of joint damage:[0= normal; 1=minimal ; 2= some osteophytes , some narrowing ; 3= moderate osteophytes, significant narrowing, mild deformity; 4= large osteophytes, marked narrowing, obvious deformity]: 2= some osteophytes prior ORIF screw fixation of the acetabular region. Questionnaire Responses: No data to display No data to display ASSESSMENT AND PLAN: Mr. Sanz is a 51 y.o. year old male pre-diabetes, former smoker, morbid obesity, GERD with mild tomoderate osteoarthritis of his left hip. We reviewed the multiple treatment options available to him for this condition. Both operative and non operative options were discussed as well as the pure elective nature of each. I reviewed the concept of the arthritis ladder with its step-garza approach, rising in invasiveness based on either previous response or symptom severity/impact on lifestyle. Considering the apparent impact on his lifestyle and having explored non- operative treatment options, I indicated that in my opinion, the treatment most likely to restore a more normal, pain-free level of function would be a multi- modal approach to his problem including a consult with the weight and wellness clinic. The patient indicates understanding of these issues and agrees with the plan. I have already ordered this as a future order in the computer. Consider a fluoro guided steroid injection. Due to his abdominal panus, this may need to be performed side lying with a spinal needle. I would defer that to radiology. Cool packs and acetaminophen prn for pain no greater than 3 grams per day. Chronic pain medication per PCP. In the interim of the above consults: --Try a non-weight bearing stepper. Can purchase from [employer]. --Encouraged upper body exercises with biceps curls using a can of peas etc. As tolerated. --He will try SLOW and steady walking program with his son. If he can take 5 steps around his housetoday every day, try to advance by 10 % each week. Keep a Journal. We can review next appointment. --Consider PT referral/aquatic therapy-they will try [place] for how. --encourage vigilant hygiene of the abdominal panus-he admit to good capability of washing/showering this are daily. --we will re-evaluate here in 3 months. Weight and wellness consult sent. I have already ordered this as a future order in the computer. Left hip fluoro guided steroid injection consult sent. I have already ordered this as a future order in the computer. He and his Son are comfortable with this approach and appreciative of our consult today. Pt agrees, questions solicited/answered, will return as scheduled and as needed for concerns or questions. Pt understands they may also call us prn for above. documented in this encounter Plan of Treatment Scheduled Referrals Name Type Priority Associated Diagnoses Orde r Schedule Referral to Weight & Wellness Center Outpatient Referral Routine Class 3 severe obesity due to excess calories with serious comorbidity and body mass index (BMI) greater than or equal to 70 in adult Ordered: 10/31/2022 documented as of this encounter Results * XR Fluoro Guided [...] who have questions please contact the health wound care nurse that requested your imaging first. [...] electronic medical record and allergies, as per [facility] protocol. ? The patient was placed supine [...] relevant electronic medicalrecord and allergies, as per [facility] protocol. The patient was placed supine on [...] patients who have questions please contactthe health wound care nurse that requested your imaging first. Deana Lackey APRN IMG FLUORO ORDERABL ES documented in this encounter Visit Diagnoses Diagnosis Primary osteoarthritis of left hip- Primary Primary localized osteoarthrosis, pelvic region and thigh Class 3 severe obesity due to excess calories with serious comorbidity and body mass index (BMI) greater than or equal to 70 in adult Primary osteoarthritis of left hip Primary localized osteoarthrosis, pelvic region and thigh documented in this encounter Care Teams Health And Human Performance Professor Relationship Specialty Start Date End Date Татьяна Koehler PA [address] [place] [address] PCP - General Family Medicine 10/19/19 documented as of this encounter
--- OUTSIDE RECORDS SUMMARY | 2023-10-07 20:52 | XMS_ITS | Encounter Summary ---
Author Organization [facility] [place] [address] Care Team Providers Care Hardboard Coating Machine Operator Name Role Phone Татьяна Koehler Primary Care Provider +1- [phone] Encounter Details Date Type Department Care Team ([facility] Contact Info) Description 10/21/2018 Telephone Weight and Wellness at [facility] [address] [place] [id number] Delmy Ramirez Social History Tobacco Use Types Packs/Day Years [...] on filedocumented in this encounter Care Teams Hardboard Coating Machine Operator Relationship Specialty Start Date End Date Татьяна Koehler PA [address] [place] [address] PCP - General 04/12/13 10/11/19 documented as of this encounter
--- OUTSIDE RECORDS SUMMARY | 2023-10-07 20:52 | XMS_ITS | Encounter Summary ---
Author Organization [facility] [place] [address] Care Team Providers Care Accountant Tax Name Role Phone Galejessicaleoncio Ancalakshmi Mariama DEGROOT Primary Care Provider +1- [phone] Encounter Details Date Type Department Care Team (Late st Contact Info) Description 02/25/2018 11:59 PM EST Anesthesia Event [place] [address] Jose Eli MD [facility] [place] [address] Ignacia Cisneros I, PIN SETTER [place] [address] Anesthesia Record Procedure Summary Procedure Name Responsible Anesthesiologist Anesthesia Start Time Anesthesia Stop Time EGD, UPPER GI ENDOSCOPY (WRVU 2.09) (Trunk) Events No events on file. Meds * Agents No agents on file. * Blood No blood administrations on file. Lines, Drains, and Airways No LDAs on file. documented in this encounter Social History Tobacco Use Types Packs/Day Years [...] on file documented as of this encounter OR Notes * Anesthesia Preprocedure Evaluation - Jose Eli MD - 04/28/2018 6:57 AM EST Pre-Anesthesia Evaluation for: Darvin Sanz a 47 y.o. male. Procedure(s): EGD, UPPER GI ENDOSCOPY Patient Active Problem List Diagnosis ??? Hypogonadism male ??? Pre-diabetes ??? Hyperprolactinemia ??? Obesity ??? HTN (hypertension) ??? Dyslipidemia ??? GERD (gastroesophageal reflux disease) ??? Anxiety ??? Depression ??? JOSE DE JESUS (obstructive sleep apnea) ??? Galactorrhea ??? Tobacco user ??? ED (erectile dysfunction) ??? Decreased libido ??? Fatigue ??? CORDERO (headache) ??? Traumatic enucleation of left eyeball Past Medical History: Diagnosis Date ??? Anxiety ??? Depression ??? GERD (gastroesophageal reflux disease) ??? Headache(784.0) ??? Hypertension Past Surgical History: Procedure Laterality Date ??? APPENDECTOMY ??? EYE SURGERY ??? ORTHOPEDIC SURGERY Social History Tobacco Use ??? Smoking status: Former Smoker Packs/day: 1.50 Types: Cigarettes Last attempt to quit: 08/23/2017 Years since quittin.6 ??? Smokeless tobacco: Never Used Substance Use Topics ??? Alcohol use: No Comment: rarely Social History Substance and Sexual Activity Drug Use Not on file Comment: occasionally Allergies Allergen Reactions ??? Ibuprofen Other (See Comments) GI bleed Medications: MAR and/or home medications have been reviewed. Physical Exam: There were no vitals filed for this visit. There is no height or weight on file to calculate BMI. Anesthesia Physical Exam Anesthesia Plan: ASA 3 MAC, with a(n) intravenous induction 47yo for EGD as ? Part of w/u for bariatric surgery.morbid obesity.Prior smoker. Atypical chest pain-> recent stress test which was equivocal->heart catheterization 04/19/2018->no evidence ofsignificant obstr coronary dx. Region - Other Informed Consent: PAT Staff Note documented in this encounter Plan of Treatment Not on file documented as of this encounter Visit Diagnoses Not on filedocumented in this encounter Care Teams Accountant Tax Relationship Specialty Start Date End Date Татьяна Koehler PA [address] [place] [address] PCP - General 04/12/13 10/11/19 documented as of this encounter
--- OUTSIDE RECORDS SUMMARY | 2023-10-07 20:52 | XMS_ITS | Encounter Summary ---
Author Organization [facility] [place] [address] Care Team Providers Care Wild Oyster Harvester Name Role Phone Татьяна Koehler Primary Care Provider +1- [phone] Reason for Visit * Reason Onset Date Comments Appointment 05/03/2019 Encounter Details Date Type Department Care Team (Late st Contact Info) Description 05/03/2019 Telephone [facility] [place] [phone] Marvin Smith Appointment Social History Tobacco Use Types Packs/Day Years [...] encounter Miscellaneous Notes * Telephone Encounter - Marvin Smith - 05/03/2019 4:24 PM EDT Caller and relationship to patient (if other than patient): Darvin Phone: Best time to reach caller: Any; Ok to leave a message ' Message or Reason for Call: Darvin called as he received a no show letter. He had it on his calander for the end of April. Pleasecall him back and he will reschedule. Thank you, Appt Needed and Reason: new pt Provider: Glenn Fermin PA documented in this encounter Plan of Treatment Not on file documented as of this encounter Visit Diagnoses Not on filedocumented in this encounter Care Teams Wild Oyster Harvester Relationship Specialty Start Date End Date Татьяна Koehler PA [address] [place] [address] PCP - General 04/12/13 10/11/19 documented as of this encounter
--- OUTSIDE RECORDS SUMMARY | 2023-10-07 20:52 | XMS_ITS | Encounter Summary ---
[place] [address] Care Team Providers Care Fourth Mate Name Role Phone Татьяна Koehler Primary Care Provider +1- [phone] Encounter Details Date Type Department Care Team ([facility] Contact Info) Description 08/07/2020 [place] [address] Migdalia Lovett Social History Tobacco Use Types Packs/Day Years [...] on filedocumented in this encounter Care Teams Fourth Mate Relationship Specialty Start Date End Date Татьяна Koehler PA [address] [place] [address] PCP - General Family Medicine 10/19/19 documented as of this encounter
--- OUTSIDE RECORDS SUMMARY | 2023-10-07 20:52 | XMS_ITS | Encounter Summary ---
Author Organization [facility] [place] [address] Care Team Providers Care Marketing Project Lead Name Role Phone Татьяна Koehler Primary Care Provider +1- [phone] Reason for Visit * Reason Comments Medication Refill Encounter Details Date Type Department Care Team ( st Contact Info) Description 11/27/2020 Refill [place] [address] Darvin Durand MD [facility] [place] [address] Social History Tobacco Use Types Packs/Day Years [...] on filedocumented in this encounter Care Teams Marketing Project Lead Relationship Specialty Start Date End Date Татьяна Koehler PA [address] [place] [address] PCP - General Family Medicine 10/19/19 documented as of this encounter
--- OUTSIDE RECORDS SUMMARY | 2023-10-07 20:52 | XMS_ITS | Encounter Summary ---
[place] [address] Care Team Providers Care Hand Endband Cutter Name Role Phone Татьяна Koehler Primary Care Provider +1- [phone] Reason for Visit * Reason Comments Medication Refill Encounter Details Date Type Department Care Team (Late st Contact Info) Description 11/26/2019 Refill [place] [address] Darvin Durand MD [facility] [place] [address] Social History Tobacco Use Types Packs/Day Years [...] on filedocumented in this encounter Care Teams Hand Endband Cutter Relationship Specialty Start Date End Date Татьяна Koehler PA [address] [place] [address] PCP - General Family Medicine 10/19/19 documented as of this encounter
--- OUTSIDE RECORDS SUMMARY | 2023-10-07 20:52 | XMS_ITS | Encounter Summary ---
Author Organization [facility] Address [facility] [place] [address] Care Team Providers Care Supervisor Buffing And Pasting Name Role Phone Татьяна Koehler Primary Care Provider +1- [phone] Reason for Visit * Consultation (Routine) - Specialty Diagnoses / Procedures Referred By Mary t Referred To Contact Endocrinology Diagnoses Testicular hypofunction Hyperprolactinemia Testicular hypofunction Hyperprolactinemia Татьяна Koehler PA [address] [place] [address] [facility] [address] [place] [id number] Referral ID Status Reason Start Date Expiration Date V isits Requested Visits Authorized [id number] Consult, Test & Treat [facility] PCP Updated and/or Approved 10/17/2019 01/09/2020 6 6 Encounter Details Date Type Department Care Team ([facility] Contact Info) Description 12/01/2019 8:20 AM EDT Office [place] [phone] Darvin Durand MD [facility] [place] [address] Prolactinoma; Hypogonadism male Social History Tobacco Use Types Packs/Day Years [...] Sign Reading Time Taken Comments Blood Pressure 138/96 12/01/2019 8:32 AM EDT Pulse 77 12/01/2019 8:32 AM EDT Temperature 36.1 ??C (97 ??F) 12/01/2019 8:32 AM EDT Respiratory Rate - - Oxygen Saturation 93% 12/01/2019 8:32 AM EDT Inhaled Oxygen Concentration - - Weight 202.3 kg (446 lb) 12/01/2019 8:32 AM EDT Height 177.8 cm (5' 10) 12/01/2019 8:32 AM EDT Body Mass Index 63.99 12/01/2019 8:32 AM EDT documented in this encounter Progress Notes * Darvin Durand MD - 12/01/2019 8:20 AM EDT Subjective: Patient ID: Darvin Sanz is a 49 y.o. male who comes in to see me for the first time since August/2018. 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 He also has what appears to be idiopathic hypogonadism that is probably a combination of his weight and perhaps the opioids that he is on. He is currently on testosteronecypionate 80 mg weekly subcutaneously. He still is in the process of trying to qualify for bariatric surgery but says he was told he has to lose some weight. I asked him if he thought he was more short of breath than in the past to which he answered I think I am about the same. When I asked him how I could help him he said he wanted to know whether or not he could take more testosterone.. HPI Review of Systems Objective: Physical Exam Constitutional: Appearance: He is obese. Pulmonary: Comments: Mild SOB at rest Neurological: Mental Status: He is alert and oriented to person, place, and time. Psychiatric: Mood and Affect: Mood normal. Behavior: Behavior normal. Thought Content: Thought content normal. Judgment: Judgment normal. BP (!) 138/96 Pulse 77 Temp 36.1 ??C (97 ??F) Ht 177.8 cm (5' 10) Wt (!) 202.3 kg (446 lb) SpO2 93% BMI 63.99 kg/m?? Assessment and Plan: I suggested to Darvin that we check some labs including a free and total testosterone. I will adjust his testosterone dose accordingly. Also will check a prolactin level which I suspect will be in a normal range. I did emphasize to him that I think in the long run bariatric surgery is the best medical treatmenthe can have to feel better and to be healthy long-term. I encouraged him to continue follow-up withDr. Arnold in the weight and wellness clinic. When I get the results of today's test I will recommend to Darvin when and how to follow-up in endocrinology. Greater than 20 of the 25-minute appointment was spent [id number] discussing the issues above. documented in this encounter Miscellaneous Notes * Addendum Note - Darin Bunch - 12/01/2019 8:20 AM EDTAddended by: DARIN BUNCH on: 12/01/2019 09:02 AM Modules accepted: Orders documented in this encounter Plan of Treatment Not on file documented as of this encounter Procedures Procedure Name Priority Date/Time Associated Diagnosis Comments HC PCH TESTOSTERONE,FREE Routine 12/01/2019 9:14 AM EDT Hypogonadism male HC PROLACTIN ASSAY, SERUM Routine 12/01/2019 9:14 AM EDT Hypogonadism male HC VENIPUNCTURE Routine 12/01/2019 9:14 AM EDT Hypogonadism male documented in this encounter Results * (ABNORMAL) Prolactin (12/01/2019 9:14 AM EDT) Prolactin 32.7(H) 4.0 - 15.2 ng/mL [facility] Blood specimen (specimen) 12/01/2019 9:14 AM EDT 12/01/2019 9:22 AM EDT Narrative Resulting Agency Comment Spec In Lab Darvin Durand MD CHEMISTRY ORDERABLES [facility] [place] [address] * (ABNORMAL) Testosterone, total and free (12/01/2019 9:14 AM EDT) Testo Total 157(L) 250 - 1100 ng/dL [facility] Comment: For additional information, please refer to http://education.Gaming for Good/faq/ TufegSigypfhyvvimJPUBSOIDR586 (This link is being provided for informational/ educational purposes only.) This test was developed and its analytical performance characteristics have been determined by [place] It has not been cleared or approved by the U.S. Food and Drug Administration. This assay has been validated pursuant to the CLIA regulations and is used for clinical purposes. Testo Free (JUNE) 20.1(L) 35.0 - 155.0 pg/mL [facility] Comment: This test was developed and its analytical performance characteristics have been determined by [employer] It has not been cleared or approved by the U.S. Food and Drug Administration. This assay has been validated pursuant to the CLIA regulations and is used for clinical purposes. Test Performed by [facility], [address] [place] [address] Juan Morfin M.D., Ph.D., Director of Laboratories , CLIA [id number] Blood specimen (specimen) 12/01/2019 9:14 AM EDT 12/01/2019 10:30 AM EDT Narrative Resulting Agency Comment Spec In Lab Darvin Durand MD LAB SEND OUT ORDERAB LES [facility] [place] [address] * TSH (12/01/2019 9:14 AM EDT) Pathologist [facility] Thyroid Stimulating Hormone 2.96 0.27 - 4.20 mcIU/mL [facility] Blood specimen (specimen) 12/01/2019 9:14 AM EDT 12/01/2019 9:22 AM EDT Narrative Resulting Agency Comment Spec In Lab Darvin Durand MD CHEMISTRY ORDERABLES [facility] [place] [address] documented in this encounter Visit Diagnoses Diagnosis 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) Hypogonadism male Other testicular hypofunction documented in this encounter Care Teams Supervisor Buffing And Pasting Relationship Specialty Start Date End Date Татьяна Koehler PA [address] [place] [address] PCP - General Family Medicine 10/19/19 documented as of this encounter
--- OUTSIDE RECORDS SUMMARY | 2023-10-07 20:52 | XMS_ITS | Encounter Summary ---
Author Organization [facility] [place] [address] Care Team Providers Care Wrecker Driver Name Role Phone Zakia Татьяна DEGROOT Primary Care Provider +1- [phone] Encounter Details Date Type Department Care Team ([facility] st Contact Info) Description 09/06/2018 10:20 AM EDT Office [place] [address] Darvin Durand MD [facility] [place] [address] Hyperprolactinemia; Hypogonadism male; Prolactinoma Social History Tobacco Use Types Packs/Day [...] Sign Reading Time Taken Comments Blood Pressure 150/99 09/06/2018 10:09 AM EDT Pulse 72 09/06/2018 10:09 AM EDT Temperature - - Respiratory Rate - - Oxygen Saturation - - Inhaled Oxygen Concentration - - Weight 205.5 kg (453 lb) 09/06/2018 10:09 AM EDT Height 177.8 cm (5' 10) 09/06/2018 10:09 AM EDT Body Mass Index 65 09/06/2018 10:09 AM EDT documented in this encounter Progress Notes * Darvin Durand MD - 09/06/2018 10:20 AM EDT Subjective: Patient ID: Darvin Sanz is a 47 y.o. 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 He is currently on carbergoline 0.5 mg twice a week and also weekly injections of testosterone cypionate 0.4 mL's (80 mg). Darvin has been seen in bariatric surgery clinic. He is interested in surgery but was told to lose down to 420 pounds which he is trying to do. Otherwise generally doing well no complaints. Darvin said he still occasionally gets some discharge from his breasts. In the past this discharge has not been resolved by suppressing his prolactin. HPI Review of Systems Objective: Physical Exam Constitutional: He is oriented to person, place, and time. He appears well- developed and well-nourished. HENT: Left eyed closed. Neurological: He is alert and oriented to person, place, and time. Psychiatric: He has a normal mood and affect. His behavior is normal. Thought content normal. BP (!) 150/99 Pulse 72 Ht 177.8 cm (5' 10) Wt (!) 205.5 kg (453 lb) BMI 65.00 kg/m?? Assessment and Plan: Looking back in Darvin's chart he was first seen way back in [address] Wray. At that time he had a low testosterone and it was presumed to be due to idiopathic hypogonadotrophic hypogonadism. He had an initial prolactin level that apparently was normal but then over the years in addition to being on testosterone he has had some prolactin levels that have been elevated up to close to 100 ng/ML. His MRIs have not shown a definite pituitary abnormality. 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 We will check Darvin's labs today. When I checked his prolactin last year his prolactin was undetectable. I then suggested he decrease his carb gurgling from 1 tab twice a week to 1 tab once a week. Looking in his chart he then had a prolactin level that was around 60 ng/ML and apparently he was put back on 1 tab twice a week. It still little unclear what is causing his hyperprolactinemia but I think is reasonable to assume he does have a microadenoma that was not detected on the MRI. In any event in the past he is needed to be on testosterone since even suppressing prolactin does not cause his testosterone level to rise into the normal range. I suspect that his significant morbidobesity is playing a large role in lowering his testosterone level. I again urged Darvin to consider bariatric surgery. We will check his labs and then write him with any recommendations for possible adjustments to his medication. Greater than 20 of the 25-minute appointment was spent [id number] discussing issues above. documented in this encounter Miscellaneous Notes * Addendum Note - Ainsley Jerez - 09/06/2018 10:20 AM EDTAddended by: AINSLEY JEREZ on: 09/06/2018 11:11 AM Modules accepted: Orders documented in this encounter Plan of Treatment Not on file documented as of this encounter Procedures Procedure Name Priority Date/Time Associated Diagnosis Comments PROLACTIN Routine 09/06/2018 11:16 AM EDT Prolactinoma TESTOSTERONE, TOTAL Routine 09/06/2018 1 1:16 AM EDT Prolactinoma documented in this encounter Results * (ABNORMAL) Prolactin (09/06/2018 11:16 AM EDT) Prolactin 34.6(H) 4.0 - 15.2 ng/mL [facility] Blood specimen (specimen) 09/06/2018 11:16 AM EDT 09/06/2018 11:23 AM EDT Narrative Resulting Agency Comment Spec In Lab Darvin Durand MD CHEMISTRY ORDERABLES [facility] [place] [address] * (ABNORMAL) Testosterone, total (09/06/2018 11:16 AM EDT) Testosterone 9.63(H) 2.49 - 8.36 ng/mL [facility] Comment: Pediatric Reference Ranges: ? Males (7 - 18 years) ?Females (8 - 18 years) Domenic Stage ?ng/ml ? ng/ml ? 1 ? <0.03 ? <0.03 to 0.06 ? 2 ? <0.03 to 4.32 ? <0.03 to 0.10 ? 3 ?0.65 to 7.78 ? <0.03 to 0.24 ? 4 ?1.80 to 7.63 ? <0.03 to 0.27 ? 5 ?1.88 to 8.82 ?0.05 to 0.38 Stated reference ranges derived from review of Lilly Kyung Testosterone II 10/2015, v6.0 Blood specimen (specimen) 09/06/2018 11:16 AM EDT 09/06/2018 11:23 AM EDT Narrative Resulting Agency Comment Spec In Lab Darvin Durand MD CHEMISTRY ORDERABLES Performing Organization Address City/State/[facility] Co de Phone Number [facility] [place] [address] documented in this encounter Visit Diagnoses Diagnosis Hyperprolactinemia Other and unspecified anterior pituitary hyperfunction Hypogonadism male Other testicular hypofunction 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) documented in this encounter Care Teams Wrecker Driver Relationship Specialty Start Date End Date Татьяна Koehler PA [address] [place] [address] PCP - General 04/12/13 10/11/19 documented as of this encounter
--- OUTSIDE RECORDS SUMMARY | 2023-10-07 20:52 | XMS_ITS | Encounter Summary ---
Author Organization [facility] [place] [address] Care Team Providers Care Rn Unit Manager Name Role Phone Татьяна Koehler Primary Care Provider +1- [phone] Reason for Visit * Reason Comments Medication Refill Encounter Details Date Type Department Care Team (Late st Contact Info) Description 05/05/2018 Refill [place] [address] Darvin Durand MD [facility] [place] [address] Prolactinoma Social History Tobacco Use Types Packs/Day [...] encounter Miscellaneous Notes * Telephone Encounter - Savannah Garcia CCMA - 05/06/2018 9:41 PM EDT GONZALO: 04/27/17 FOV: N/A documented in this encounter Plan of Treatment Not on file documented as of this encounter Visit Diagnoses Diagnosis 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) documented in this encounter Care Teams Rn Unit Manager Relationship Specialty Start Date End Date Татьяна Koehler PA [address] [place] [address] PCP - General 04/12/13 10/11/19 documented as of this encounter
--- OUTSIDE RECORDS SUMMARY | 2023-10-07 20:52 | XMS_ITS | Encounter Summary ---
[place] [address] Care Team Providers Care Director Speech Name Role Phone Татьяна Koehler Primary Care Provider +1- [phone] Reason for Referral * Consultation (Routine) - Closed Specialty Diagnoses / Procedures Referred By Mary t Referred To Contact Orthopaedics Diagnoses Left hip pain Татьяна Koehler PA [address] [place] [address] [facility] [address] [place] [phone] Referral ID Status Reason Start Date Expiration Date V isits Requested Visits Authorized [id number] Closed Consult, Test & Treat PCP Updated and/or Approved 08/19/2022 08/19/2023 6 6 Encounter Details Date Type Department Care Team ([facility] Contact Info) Description 08/19/2022 Transcribe Orders eDH Incoming Referrals [phone] Татьяна Koehler PA [address] [place], [place] [id number] Left hip pain Social History Tobacco Use Types Packs/Day Years [...] Schedule Referral to Orthopaedics Outpatient Referral Routine Left hip pain Ordered: 08/19/2022 documented as of this encounter Visit Diagnoses Diagnosis Left hip pain Pain in joint, pelvic region and thigh documented in this encounter Care Teams Director Speech Relationship Specialty Start Date End Date Татьяна Koehler [address] [place] [address] PCP - General Family Medicine 10/19/19 documented as of this encounter
--- OUTSIDE RECORDS SUMMARY | 2023-10-07 20:52 | XMS_ITS | Encounter Summary ---
Author Organization [facility] [place] [address] Care Team Providers Care Sheet Cutter Name Role Phone Татьяна Koehler Primary Care Provider +1- [phone] Encounter Details Date Type Department Care Team ([facility] st Contact Info) Description 07/19/2020 Orders [place] [address] Nick De Paz MD [facility] [place] [address] Chronic obstructive pulmonary disease, unspecified COPD type (Primary Dx) Social History Tobacco Use Types Packs/Day Years [...] as of this encounter Visit Diagnoses Diagnosis Chronic obstructive pulmonary disease, unspecified COPD type- Primary documented in this encounter Care Teams Sheet Cutter Relationship Specialty Start Date End Date Татьяна Koehler PA [address] [place] [address] PCP - General Family Medicine 10/19/19 documented as of this encounter
--- OUTSIDE RECORDS SUMMARY | 2023-10-07 20:52 | XMS_ITS | Encounter Summary ---
Author Organization [facility] [place] [address] Care Team Providers Care Medical I D Sales Name Role Phone Татьяна Koehler Primary Care Provider +1- [phone] Reason for Visit * Reason Comments Medication Refill Encounter Details Date Type Department Care Team ( st Contact Info) Description 04/15/2022 [place] [address] Liv Andino MD [facility] [place] [address] Social History Tobacco Use Types Packs/Day Years [...] on filedocumented in this encounter Care Teams Medical I D Sales Relationship Specialty Start Date End Date Татьяна Koehler PA [address] [place] [address] PCP - General Family Medicine 10/19/19 documented as of this encounter
--- OUTSIDE RECORDS SUMMARY | 2023-10-07 20:52 | XMS_ITS | Encounter Summary ---
[place] [address] Care Team Providers Care Solar Sales Energy Advisor Name Role Phone Татьяна Koehler Primary Care Provider +1- [phone] Reason for Visit * Reason Onset Date Comments Medication Refill 09/23/2021 Encounter Details Date Type Department Care Team (Late st Contact Info) Description 09/23/2021 Ref[place] [id number] Luis Chen, RN Social History Tobacco Use Types Packs/Day [...] on filedocumented in this encounter Care Teams Solar Sales Energy Advisor Relationship Specialty Start Date End Date Татьяна Koehler PA [address] [place] [address] PCP - General Family Medicine 10/19/19 documented as of this encounter
--- OUTSIDE RECORDS SUMMARY | 2023-10-07 20:52 | XMS_ITS | Encounter Summary ---
Author Organization [facility] [place] [address] Care Team Providers Care Airplane Refueler Name Role Phone Татьяна Koehler Primary Care Provider +1- [phone] Encounter Details Date Type Department Care Team ([facility] st Contact Info) Description 09/06/2018 Orders Only [place]ocrinology [place] [address] Darvin Durand MD [facility] [place] [address] Social History Tobacco Use Types Packs/Day Years [...] on filedocumented in this encounter Care Teams Airplane Refueler Relationship Specialty Start Date End Date Татьяна Koehler PA [address] [place] [address] PCP - General 04/12/13 10/11/19 documented as of this encounter
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
--- OUTSIDE RECORDS SUMMARY | 2023-10-07 20:52 | XMS_ITS | Encounter Summary ---
[place] [address] Care Team Providers Care Residential Nurse Name Role Phone Татьяна Koehler Primary Care Provider [phone]- [phone] Reason for Referral * Diagnostic Test (Routine) - Closed Specialty Diagnoses / Procedures Referred By Mary t Referred To Contact Radiology Diagnoses Abdominal pain, unspecified abdominal location Dysuria Procedures CT Abdomen & Pelvis w Contrast Татьяна Koehler PA [address] [place] [address] [facility] [place] [address] Referral ID Status Reason Start Date Expiration Date V isits Requested Visits Authorized [id number] Closed Specialty Service Requested 05/12/2019 11/11/2020 1 1 Reason for Visit * Diagnostic Test (Routine) - Closed Specialty Diagnoses / Procedures Referred By Contac t Referred To Contact Radiology Diagnoses Abdominal pain, unspecified abdominal location Dysuria Procedures CT Abdomen & Pelvis w Contrast Татьяна Koehler PA [address] [place] [address] [facility] [place] [address] Referral ID Status Reason Start Date Expiration Date V isits Requested Visits Authorized [id number] Closed Specialty Service Requested 05/12/2019 11/11/2020 1 1 Encounter Details Date Type Department Care Team (Latest Contact Info) Description 05/17/2019 9:20 AM EDT - 05/17/2019 11:59 PM EDT Hospital [place] [address] Татьяна Koehler PA [address] [place] [address] Abdominal pain, unspecified abdominal location; Dysuria Discharge Disposition: Home Social History Tobacco Use [...] - - Weight 216.8 kg (478 lb) 05/17/2019 10:53 AM EDT Height - - Body Mass Index 68.59 01/10/2019 1:42 PM EST documented in this encounter Medications at Time of Discharge Medication Sig Dispensed Refills Start Date End Date VENTOLIN HFA 90 mcg/actuation HFA Aerosol Inhaler [...] Release (E.C.) daily. Ordered for Cardiac reasons 5 12/06/2018 atorvastatin [...] Disp, 25 G 25 gauge x 5/8 NeedleIndications:Prol actinoma 1 Units by Misc.(Non-Drug; Combo Route) route every 7 days. 30 each 1 04/27/2017 Needle, Disp, 22 G 22 gauge x 1 Needle 1 each by Misc.(Non-Drug; Combo Route) route every 14 days. 6 each 3 04/01/2017 Syringe, Disposable, 1 mL Syringe 1 each by Misc.(Non-Drug; Combo Route) route every 14 days. Must be luer-gemma 12 Syringe 3 12/11/2016 DEXILANT 60 mg Cap, Delayed Rel., Multiphasic Take 60 mg by mouth daily. 5 12/05/2015 diaZEPam (VALIUM) 10 mg Tablet Take 10 mg by mouth 3 times daily as needed. Reported on 05/05/2016 0 01/16/2016 escitalopram (LEXAPRO) 20 mg Tablet Take 20 mg by mouth daily. 3 01/14/2016 HYDROcodone-acetaminop hen (NORCO) 10-325 mg Tablet Take 1 tablet by mouth 4 times daily. Reported on 05/05/2016 0 01/16/2016 furosemide (Lasix) 40 mg Tablet Take 60 mg by mouth daily. Reported on 05/05/2016 celecoxib (CeleBREX) 400 mg capsule Take 400 mg by mouth daily. testosterone cypionate (DepoTESTOSTERONE CYPIONATE) 200 mg/mL Oil INJECT 0.4MLS INTO THE MUSCLE EVERY 7 DAYS 10 mL 3 03/24/2019 11/23/2020 fluconazole (DIFLUCAN) 100 mg Tablet TAKE ONE TABLET BY MOUTH EVERY DAY FOR 7 DAYS 0 09/02/2018 08/22/2019 Syringe with Needle, Safety 1 mL 23 gauge x 1 Syringe 1 Syringe by Misc.(Non-Drug; Combo Route) route every 7 days. 15 Syringe 5 09/06/2018 11/28/2019 BD LUER-GEMMA SYRINGE 3 mL 22 gauge x 1 SyringeIndications:Pro lactinoma USE WITH INJECTION ONCE A WEEK 30 Syringe 5 08/03/2018 09/23/2021 syringe with needle, disposable, (BD LUER-GEMMA SYRINGE) 3 mL 22 gauge x 1 SyringeIndications:Pro lactinoma 1 each by [facility].(Non-Drug; Combo Route) route once a week. 30 Syringe 5 05/07/2018 09/23/2021 LATUDA 60 mg Tablet TAKE ONE TABLET BY MOUTH EVERY DAY FOR RECURRENT DEPRESSION 1 09/30/2017 08/22/2019 LYRICA 50 mg Capsule TAKE ONE CAPSULE BY MOUTH AT BEDTIME FOR 1 WEEK THEN 1 TWO TIMES A DAY FOR 1 WEEK THEN 1 THREE TIMES A DAY 1 11/27/2017 08/22/2019 SUMAtriptan (IMITREX) 50 mg Tablet TAKE 1 TABLET BY MOUTH NEEDED FOR HEADACHE MAY REPEAT IN 2 HOURS IF HEADACHE NOT IMPROVED OR RECURS MAX DOSE IS 200MG DAILY 1 12/02/2017 08/22/2019 cabergoline (DOSTINEX) 0.5 mg Tablet Take 0.5 tablets by mouth twice a week. 32 tablet 4 01/31/2016 11/23/2020 methylphenidate (RITALIN) 10 mg Tablet Take 10 mg by mouth 3 times daily. 0 01/18/2016 08/22/2019 citalopram (CELEXA) 40 mg tablet 08/03/2003 11/23/2020 documented as of this encounter Plan of Treatment Not on file documented as of this encounter Procedures Procedure Name Priority Date/Time Associated Diagnosis Comments CT ABDOMEN AND PELVIS W CONTRAST Routine 05/17/2019 12:03 PM EDT Abdominal pain, unspecified abdominal location Dysuria POCT CREATININE Routine 05/17/2019 11:36 AM EDT documented in this encounter Results * CT Abdomen & Pelvis w Contrast (05/17/2019 12:03 PM EDT) Anatomical Region Laterality Modality Abdomen, Pelvis Computed Tomogra phy Impressions 05/17/2019 12:11 PM EDT No acute findings. Hepatomegaly with diffuse hepatic steatosis. Cholelithiasis, without signs of acute cholecystitis Thank you for letting us participate in the care of this patient. For questions regarding this report, please contact the number below. ? Narrative 05/17/2019 12:11 PM EDT EXAMINATION: CT ABDOMEN AND PELVIS W CONTRAST CLINICAL HISTORY: Abdominal pain. Symptom; dysuria TECHNIQUE: Helical CT of the abdomen and pelvis was performed following the intravenous administration of contrast. Administered 120.0 ml of OMNIPAQUE 350.00 mg/ml. Oral contrast was administered. COMPARISON: None FINDINGS: Lower chest: Normal. Liver: Diffuse low-attenuation, compatible with hepatic steatosis. Hepatomegaly, measuring 25 cm in cranial to caudal dimension. No hepatic lesions. Bile ducts: Normal Gallbladder: ??Layering cholelithiasis. No gallbladder wall thickening. Pancreas: Normal attenuation without ductal dilatation. Spleen: Normal. Adrenals: Normal. Kidneys: Symmetric renal enhancement. No renal masses. No collecting system obstruction bilaterally Urinary Bladder: Normal. Vasculature: No aneurysm. Lymph Nodes: No enlarged lymph nodes. Bowel: No small bowel wall thickening. No small bowel obstruction. The terminal ileum is normal. No diverticulitis. No colonic wall thickening to suggest a colitis. Peritoneum and mesentery: No ascites, free air, or loculated fluid collection. No mesenteric inflammation. Abdominal wall: Large periumbilical fat-containing hernia, measuring approximately 7.6 cm in length. Bilateral fat-containing inguinal hernias Reproductive organs: Normal. Osseous structures: No suspicious lesions. Procedure Note Dennis Ramirez MD - 05/17/2019 EXAMINATION: CT ABDOMEN AND PELVIS W CONTRAST CLINICAL HISTORY: Abdominal pain. Symptom; dysuria TECHNIQUE: Helical CT of the abdomen and pelvis was performed followingthe intravenous administration of contrast. Administered 120.0 ml ofOMNIPAQUE 350.00 mg/ml. Oral contrast was administered. COMPARISON: None FINDINGS: Lower chest: Normal. Liver: Diffuse low-attenuation, compatible with hepatic steatosis.Hepatomegaly, measuring 25 cm in cranial to caudal dimension. No hepatic lesions. Bile ducts: Normal Gallbladder: Layering cholelithiasis. No gallbladder wall thickening. Pancreas: Normal attenuation without ductal dilatation. Spleen: Normal. Adrenals: Normal. Kidneys: Symmetric renal enhancement. No renal masses. No collectingsystem obstruction bilaterally Urinary Bladder: Normal. Vasculature: No aneurysm. Lymph Nodes: No enlarged lymph nodes. Bowel: No small bowel wall thickening. No small bowel obstruction. Theterminal ileum is normal. No diverticulitis. No colonic wall thickening to suggesta colitis. Peritoneum and mesentery: No ascites, free air, or loculated fluidcollection. No mesenteric inflammation. Abdominal wall: Large periumbilical fat-containing hernia, measuring approximately 7.6 cm in length. Bilateral fat-containing inguinalhernias Reproductive organs: Normal. Osseous structures: No suspicious lesions. IMPRESSION No acute findings. Hepatomegaly with diffuse hepatic steatosis. Cholelithiasis, without signs of acute cholecystitis Thank you for letting us participate in the care of this patient. Forquestions regarding this report, please contact the number below. Татьяна DEGROOT IMG CT ORDERABLES * POCT Creatinine (05/17/2019 11:36 AM EDT) Creatinine, POC 0.9 0.8 - 1.5 mg/dL POC Estimated GFR >60 60 Blood specimen (specimen) 05/17/2019 11:36 AM EDT Татьяна DEGROOT POINT OF CARE TEST ORDERABLES documented in this encounter Visit Diagnoses Diagnosis Abdominal pain, unspecified abdominal location Dysuria documented in this encounter Administered Medications Inactive Administered Medications - up to 3 most recent administrations Medication Order MAR Action Action Date Dose Rate Site iohexoL (OMNIPAQUE) 350 mg/mL solution 0-200 mL 0-200 mL, Intravenous, ONCE PRN, 1 dose, Starting on Thu05/17/19 at 1148, Until Thu05/17/19 at 1203, Per Protocol, Warning Vesicant/Irritant Medication , Radiology Contrast, Routine Given 05/17/2019 12:03 PM EDT 120 mLs iohexoL (OMNIPAQUE) 350 mg/mL solution 0-50 mL 0-50 mL, Oral, ONCE PRN, 1 dose, Starting on Thu05/17/19 at 1148, Until Thu05/17/19 at 1149, Per Protocol, Warning Vesicant/Irritant Medication , Radiology Contrast, Routine Given 05/17/2019 11:49 AM EDT 50 mLs documented in this encounter Care Teams Residential Nurse Relationship Specialty Start Date End Date Татьяна Koehler PA [address] [place] [address] PCP - General 04/12/13 10/11/19 documented as of this encounter
--- OUTSIDE RECORDS SUMMARY | 2023-10-07 20:52 | XMS_ITS | Encounter Summary ---
Author Organization [facility] [place] [address] Care Team Providers Care Farmworker [employer] Name Role Phone Татьяна Koehler Primary Care Provider [phone]- [phone] Encounter Details Date Type Department Care Team ([facility] Contact Info) Description 10/19/2018 Telephone Weight and Wellness at [address] [id number] Delmy Ramirez Social History Tobacco Use Types [...] encounter Miscellaneous Notes * Telephone Encounter - Ana M Vaz, PhD - 10/20/2018 11:10 AM EDT Called patient who reported that his housing situation has improved. Reports that he moved into hisown place 4 months ago. Discussed next steps and informed Darvin that he will be contacted to schedule a f/u appointment with this provider. documented in this encounter Plan of Treatment Not on file documented as of this encounter Visit Diagnoses Not on filedocumented in this encounter Care Teams Farmworker [employer] Relationship Specialty Start Date End Date Татьяна Koehler PA [address] [place] [address] PCP - General 04/12/13 10/11/19 documented as of this encounter
--- OUTSIDE RECORDS SUMMARY | 2023-10-07 20:52 | XMS_ITS | Encounter Summary ---
Author Organization [facility] [place] [address] Care Team Providers Care County Adviser Name Role Phone Татьяна Koehler Primary Care Provider +1- [phone] Reason for Visit * Reason Comments Medication Refill Encounter Details Date Type Department Care Team ( st Contact Info) Description 05/09/2020 [place] [address] Darvin Durand MD [facility] [place] [address] Social History Tobacco Use Types Packs/Day Years [...] on filedocumented in this encounter Care Teams County Adviser Relationship Specialty Start Date End Date Татьяна Koehler PA [address] [place] [address] PCP - General Family Medicine 10/19/19 documented as of this encounter
--- OUTSIDE RECORDS SUMMARY | 2023-10-07 20:52 | XMS_ITS | Encounter Summary ---
Author Organization [facility] [place] [address] Care Team Providers Care Electronic Prepress Technician Name Role Phone Татьяна Koehler Primary Care Provider +1- [phone] Reason for Visit * Reason Onset Date Comments Prior Authorization 04/17/2022 Encounter Details Date Type Department Care Team ([facility] st Contact Info) Description 04/17/2022 Tele[place] [address] Cony Toledo Prior Authorization Social History Tobacco [...] * Telephone Encounter - Cony Toledo - 04/22/2022 2:26 PM EST Previous Medications Tried Medication: Androgel Medication: Androderm * Telephone Encounter - Cony Toledo - 04/22/2022 2:25 PM EST Medication Prior Authorization Chaidarun ? Medication name/dose/directions: Testosterone Cypionate 200mg/mL - inj 0.5mL once weekly ?? Rationale for request: Hypogonadism (E29.1) ?? Health plan: [facility]) Shah: SHERRIUNX ?? Authorizing used equipment sales representative name: Marissa ?? Sent to health plan on: 04/22/22 ?? PA Outcome: PA Approval ?? Quantity approved: ?? Authorization number: ?? Start date: 02/23/22 End date: 04/22/23 * Telephone Encounter - Cony Toledo - 04/17/2022 9:24 AM EST Images from the original note were not included. Received PA for testo cyp Will complete as soon as possible documented in this encounter Plan of Treatment Not on file documented as of this encounter Visit Diagnoses Not on filedocumented in this encounter Care Teams Electronic Prepress Technician Relationship Specialty Start Date End Date Татьяна Koehler PA [address] [place] [address] PCP - General Family Medicine 10/19/19 documented as of this encounter
--- OUTSIDE RECORDS SUMMARY | 2023-10-07 20:52 | XMS_ITS | Encounter Summary ---
Author Organization [facility] [place] [address] Care Team Providers Care Business Quality Assurance Analyst Name Role Phone Татьяна Koehler Primary Care Provider +1- [phone] Reason for Visit * Reason Onset Date Comments Prior Authorization 09/14/2018 Encounter Details Date Type Department Care Team ([facility] st Contact Info) Description 09/14/2018 Telephone [place] [address] Cony Toledo Prior Authorization Social History Tobacco [...] * Telephone Encounter - Cony Toledo - 09/14/2018 11:21 AM EDT Medication Prior Authorization Ladarius Medication name/dose/directions: Testo cyp 200mg/mL - Inject 0.4 mLs into the muscle every 7 days. Rationale for request: Hypogonadism Health plan: [facility] ([facility]) Authorizing termite control representative name: Marissa Faxed to health plan on: 09/14/18 Health plan decision: Approved Quantity approved: Authorization number: Start date: 06/16/18 End date: 09/14/19 documented in this encounter Plan of Treatment Not on file documented as of this encounter Visit Diagnoses Not on filedocumented in this encounter Care Teams Business Quality Assurance Analyst Relationship Specialty Start Date End Date Татьяна Koehler PA [address] [place] [address] PCP - General 04/12/13 10/11/19 documented as of this encounter
--- OUTSIDE RECORDS SUMMARY | 2023-10-07 20:52 | XMS_ITS | Encounter Summary ---
Author Organization [facility] [place] [place] [address] Care Team Providers Care Education Coordinator Name Role Phone Татьяна Koehler Primary Care Provider +1- [phone] Encounter Details Date Type Department Care Team ([facility] Contact Info) Description 12/27/2018 Telephone Weight and Wellness at [facility] [address] [place] [address] Delmy Ramirez Social History Tobacco Use Types [...] on filedocumented in this encounter Care Teams Education Coordinator Relationship Specialty Start Date End Date Татьяна Koehler PA [address] [place] [address] PCP - General 04/12/13 10/11/19 documented as of this encounter
--- OUTSIDE RECORDS SUMMARY | 2023-10-07 20:52 | XMS_ITS | Encounter Summary ---
Author [facility] [place] [address] Care Team Providers Care Head Packager Name Role Phone Татьяна Koehler Primary Care Provider +1- [phone] Encounter Details Date Type Department Care Team ([facility] st Contact Info) Description 11/22/2020 Orders Only [place] [address] Liv Andino MD [facility] [place] [address] Social History Tobacco Use Types Packs/Day Years [...] on filedocumented in this encounter Care Teams Head Packager Relationship Specialty Start Date End Date Татьяна Koehler PA [address] [place] [address] PCP - General Family Medicine 10/19/19 documented as of this encounter
--- OUTSIDE RECORDS SUMMARY | 2023-10-07 20:52 | XMS_ITS | Encounter Summary ---
Author Organization [facility] [place] [address] Care Team Providers Care Dental Assistant Teacher Name Role Phone Татьяна Koehler Primary Care Provider +1- [phone] Encounter Details Date Type Department Care Team (Latest Contact Info) Description 11/10/2018 Multidisciplinary Ca re Committee [place] [address] Hermelinda Graham APRN [facility] [place] [address] Social History Tobacco Use Types Packs/Day Years [...] as of this encounter Progress Notes * Hermelinda Graham - 11/10/2018 6:57 AM EDT BARIATRIC SURGERY PROGRAM CASE REVIEW Darvin Sanz is a 47 y.o. year-old male. His primary care physician is ZANE Ulloa. Case presentation by: Dr Hung Staff present at today's meeting: Saadia Hung MD, Medical Records Field Technician, Shanita Hurley MD, Sotero Patel MD, Marga Jackson, MS, RDN Opal Delgado, MS RD, Rosy Solares APRN, Hermelinda Graham APRN, Ana M Vaz, PhD, Carli Menduni MSN RN Reason for presentation: follow up post team review. He reports that he can't lose weight and requests a waiver. Patient Active Problem List Diagnosis Code ??? Hypogonadism male E29.1 ??? Pre-diabetes R73.03 ??? Hyperprolactinemia E22.1 ??? Obesity E66.9 ??? HTN (hypertension) I10 ??? Dyslipidemia E78.5 ??? GERD (gastroesophageal reflux disease) K21.9 ??? Anxiety F41.9 ??? Depression F32.9 ??? JOSE DE JESUS (obstructive sleep apnea) G47.33 ??? Galactorrhea N64.3 ??? Tobacco user Z72.0 ??? ED (erectile dysfunction) N52.9 ??? Decreased libido R68.82 ??? Fatigue R53.83 ??? CORDERO (headache) R51 ??? 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 APPENDECTOMY ??? EYE SURGERY ??? ORTHOPEDIC SURGERY Plan of care: Follow up with Dr Vaz on 11/22, Dr Arnold in November. He needs to lose 20 poundsfrom current weight documented in this encounter Plan of Treatment Not on file documented as of this encounter Visit Diagnoses Not on filedocumented in this encounter Care Teams Dental Assistant Teacher Relationship Specialty Start Date End Date Татьяна Koehler [address] [place] [address] PCP - General 04/12/13 10/11/19 documented as of this encounter
--- OUTSIDE RECORDS SUMMARY | 2023-10-07 20:52 | XMS_ITS | Encounter Summary ---
[place] [address] Care Team Providers Care Aerobics Teacher Name Role Phone Татьяна Koelher Primary Care Provider +1- [phone] Encounter Details Date Type Department Care Team (Latest Contact Info) Description 10/31/2022 Travel Social History Tobacco Use Types Packs/Day [...] on filedocumented in this encounter Care Teams Aerobics Teacher Relationship Specialty Start Date End Date Татьяна Koehler PA [address] [place] [address] PCP - General Family Medicine 10/19/19 documented as of this encounter
--- OUTSIDE RECORDS SUMMARY | 2023-10-07 20:52 | XMS_ITS | Encounter Summary ---
Author Organization [facility] [address] Care Team Providers Care Museum Exhibit Technician Name Role Phone Татьяна Koehler Primary Care Provider +1- [phone] Reason for Visit * Reason Comments Medication Refill Encounter Details Date Type Department Care Team (Late st Contact Info) Description 04/20/2018 [place] [phone] Viola Maddox MD [facility] [place] [address] Social History Tobacco Use Types Packs/Day Years [...] Telephone Encounter - Savannah Garcia CCMA - 04/29/2018 8:55 PM EST GONZALO: 04/27/17 FOV: N/A suggested that he switch to take 0.4 mL's (80 mg) of testosterone cypionate subcutaneously every week. documented in this encounter Plan of Treatment Not on file documented as of this encounter Visit Diagnoses Not on filedocumented in this encounter Care Teams Museum Exhibit Technician Relationship Specialty Start Date End Date Татьяна Koehler PA [address] [place] [address] PCP - General 04/12/13 10/11/19 documented as of this encounter
--- OUTSIDE RECORDS SUMMARY | 2023-10-07 20:52 | XMS_ITS | Encounter Summary ---
Author Organization [facility] [place] [address] Care Team Providers Care Supervisor Grips Name Role Phone Татьяна Koehler Primary Care Provider +1- [phone] Encounter Details Date Type Department Care Team ([facility] st Contact Info) Description 07/19/2020 Telephone [place] [address] Suzanne Hrenandez Social History Tobacco Use Types Packs/Day Years [...] encounter Miscellaneous Notes * Telephone Encounter - Suzanne Hernandez - 07/19/2020 4:10 PM EDT Scheduled CXR, PFT, and new patient appt. Aware of date, time, and location of all three. documented in this encounter Plan of Treatment Not on file documented as of this encounter Visit Diagnoses Not on filedocumented in this encounter Care Teams Supervisor Grips Relationship Specialty Start Date End Date Татьяна Koehler PA [address] [place] [address] PCP - General Family Medicine 10/19/19 documented as of this encounter
--- OUTSIDE RECORDS SUMMARY | 2023-10-07 20:52 | XMS_ITS | Encounter Summary ---
[place] [address] Care Team Providers Care Flight Manager Name Role Phone Татьяна Koehler Primary Care Provider +1- [phone] Reason for Visit * Reason Onset Date Comments Medication Refill 01/29/2021 Encounter Details Date Type Department Care Team ([facility] st Contact Info) Description 01/29/2021 Refill [place] [phone] Ignacia Roman RN Social History Tobacco Use Types Packs/Day [...] on filedocumented in this encounter Care Teams Flight Manager Relationship Specialty Start Date End Date Татьяна Koehler PA [address] [place] [address] PCP - General Family Medicine 10/19/19 documented as of this encounter
--- OUTSIDE RECORDS SUMMARY | 2023-10-07 20:52 | XMS_ITS | Encounter Summary ---
Author Organization [facility] [place] [address] Care Team Providers Care Basin Operator Name Role Phone Татьяна Koehler Primary Care Provider +1- [phone] Encounter Details Date Type Department Care Team ([facility] st Contact Info) Description 12/01/2019 Orders [place] [address] Darvin Durand MD [facility] [place] [address] Hypogonadism male Social History Tobacco Use Types [...] on file documented as of this encounter Results * TSH (12/01/2019 9:14 AM EDT) Thyroid Stimulating Hormone 2.96 0.27 - 4.20 mcIU/mL [facility] Blood specimen (specimen) 12/01/2019 9:14 AM EDT 12/01/2019 9:22 AM EDT Narrative Resulting Agency Comment Spec In Lab Darvin Durand MD CHEMISTRY ORDERABLES [facility] [place] [address] * (ABNORMAL) Testosterone, total and free (12/01/2019 9:14 AM EDT) Testo Total 157(L) 250 - 1100 ng/dL [facility] Comment: For additional information, please refer to http://education.Security Innovation/faq/ NcccxNnqydysrsgfhUBLDINAZX292 (This link is being provided for informational/ educational purposes only.) This test was developed and its analytical performance characteristics have been determined by [employer] [employer]. It has not been cleared or approved by the U.S. Food and Drug Administration. This assay has been validated pursuant to the CLIA regulations and is used for clinical purposes. Testo Free (JUNE) 20.1(L) 35.0 - 155.0 pg/mL [facility] Comment: This test was developed and its analytical performance characteristics have been determined by [facility] [place], [place]. It has not been cleared or approved by the U.S. Food and Drug Administration. This assay has been validated pursuant to the CLIA regulations and is used for clinical purposes. Test Performed by [facility], [facility], [address] [place], [place] Juan Morfin M.D., Ph.D., Director of Laboratories , CLIA [id number] Blood specimen (specimen) 12/01/2019 9:14 AM EDT 12/01/2019 10:30 AM EDT Narrative Resulting Agency Comment Spec In Lab Darvin Durand MD LAB SEND OUT ORDERAB LES [facility] [place] [address] * (ABNORMAL) Prolactin (12/01/2019 9:14 AM EDT) Prolactin 32.7(H) 4.0 - 15.2 ng/mL [facility] Blood specimen (specimen) 12/01/2019 9:14 AM EDT 12/01/2019 9:22 AM EDT Narrative Resulting Agency Comment Spec In Lab Darvin Durand MD CHEMISTRY ORDERABLES Performing Organization Address City/State/[facility] Co de Phone Number [facility] [place] [address] documented in this encounter Visit Diagnoses Diagnosis Hypogonadism male Other testicular hypofunction documented in this encounter Care Teams Basin Operator Relationship Specialty Start Date End Date Татьяна Koehler PA [address] [place] [address] PCP - General Family Medicine 10/19/19 documented as of this encounter
--- OUTSIDE RECORDS SUMMARY | 2023-10-07 20:52 | XMS_ITS | Encounter Summary ---
Author Organization [facility] [place] [address] Care Team Providers Care Dairy Scientist Name Role Phone Татьяна Koehler Primary Care Provider +1- [phone] Reason for Visit * Reason Onset Date Comments Prior Authorization 01/30/2021 Encounter Details Date Type Department Care Team ([facility] st Contact Info) Description 01/30/2021 [place] [address] Cony Toledo Prior Authorization Social History Tobacco [...] * Telephone Encounter - Cony Toledo - 02/01/2021 11:14 AM EST Medication Prior Authorization Thu Medication name/dose/directions: Testosterone Cypionate 200mg/mL - inj 0.5mL once weekly Rationale for request: Hypogonadism Health plan: [facility] ([facility]) Authorizing hr representative name: Marissa Sent to health plan on: 02/01/21 Health plan decision: Approved Quantity approved: Authorization number: Start date: 11/03/20 End date: 02/01/22 * Telephone Encounter - Cony Toledo - 01/30/2021 7:26 AM EST Received PA for testo cyp Will complete as soon as possible documented in this encounter Plan of Treatment Not on file documented as of this encounter Visit Diagnoses Not on filedocumented in this encounter Care Teams Dairy Scientist Relationship Specialty Start Date End Date Татьяна Koehler PA [address] [place] [address] PCP - General Family Medicine 10/19/19 documented as of this encounter
--- OUTSIDE RECORDS SUMMARY | 2023-10-07 20:52 | XMS_ITS | Encounter Summary ---
[place] [address] Care Team Providers Care Repairer Hairspring Name Role Phone Татьяна Koehler Primary Care Provider +1- [phone] Encounter Details Date Type Department Care Team (Late st Contact Info) Description 08/10/2019 Telephone [facility] [place] [address] Grace Amaya RN Social History Tobacco Use Types Packs/Day [...] on filedocumented in this encounter Care Teams Repairer Hairspring Relationship Specialty Start Date End Date Татьяна Koehler PA [address] [address] PCP - General 04/12/13 10/11/19 documented as of this encounter
--- OUTSIDE RECORDS SUMMARY | 2023-10-07 20:52 | XMS_ITS | Encounter Summary ---
Author Organization [facility] [place] [address] Care Team Providers Care Cardiac Catheterization Technician Name Role Phone Татьяна Koehler Primary Care Provider +1- [phone] Encounter Details Date Type Department Care Team ([facility] st Contact Info) Description 01/11/2020 Telephone Endocrinology at [facility] [place] [address] Stanislav Christie Social History Tobacco Use Types Packs/Day Years [...] encounter Miscellaneous Notes * Telephone Encounter - Stanislav Christie - 01/11/2020 9:59 AM EST Left mess for pt to sched f/u in Jan with JT documented in this encounter Plan of Treatment Not on file documented as of this encounter Visit Diagnoses Not on filedocumented in this encounter Care Teams Cardiac Catheterization Technician Relationship Specialty Start Date End Date Татьяна Koehler PA [address] [place] [address] PCP - General Family Medicine 10/19/19 documented as of this encounter
--- OUTSIDE RECORDS SUMMARY | 2023-10-07 20:52 | XMS_ITS | Encounter Summary ---
[place] [address] Care Team Providers Care Expressive Art Therapist Name Role Phone Татьяна Koehler Primary Care Provider +1- [phone] Encounter Details Date Type Department Care Team ([facility] st Contact Info) Description 10/31/2022 Orders [place] [address] Rosy Bourgeois PA [facility] [place] [address] Social History Tobacco Use Types Packs/Day Years [...] on filedocumented in this encounter Care Teams Expressive Art Therapist Relationship Specialty Start Date End Date Татьяна Koehler PA [address] [place] [address] PCP - General Family Medicine 10/19/19 documented as of this encounter
--- OUTSIDE RECORDS SUMMARY | 2023-10-07 20:52 | XMS_ITS | Encounter Summary ---
Author Organization [facility] Address [facility] [place] [address] Care Team Providers Care Vice President Payment Name Role Phone Татьяна Koehler Primary Care Provider +1- [phone] Encounter Details Date Type Department Care Team (Latest Contact Info) Description 09/13/2021 11:00 AM EDT TH Visit (TeleHealth) [place] [address] Liv Andino MD [facility] [place] [place] [address] DH PATIENT NOT SEEN Social History Tobacco Use Types Packs/Day Years [...] as of this encounter Progress Notes * Liv Andino MD - 09/13/2021 11:00 AM EDT This patient was not seen in this encounter. documented in this encounter Plan of Treatment Not on file documented as of this encounter Visit Diagnoses Diagnosis DH PATIENT NOT SEEN documented in this encounter Care Teams Vice President Payment Relationship Specialty Start Date End Date Татьяна Koehler PA [address] [place], [place] [id number] PCP - General Family Medicine 10/19/19 documented as of this encounter
--- OUTSIDE RECORDS SUMMARY | 2023-10-07 20:52 | XMS_ITS | Encounter Summary ---
Author Organization [facility] Address [facility] [place] [address] Care Team Providers Care Patient Registration Manager Name Role Phone Татьяна Koehler Primary Care Provider +1- [phone] Reason for Visit * Reason Comments Medication Refill Encounter Details Date Type Department Care Team (Late st Contact Info) Description 03/23/2019 [place] [address] Darvin Durand MD [facility] [place] [address] Social History Tobacco Use Types Packs/Day Years [...] encounter Miscellaneous Notes * Telephone Encounter - Jacy Carnes LPN - 03/24/2019 10:01 AM EST Rx refill request: testosterone cypionate 200 mg./mL oil: inject 0.4 MLS into the muscle every 7 days. Last office visit: 09/06/2018 He is needed to be on testosterone since even suppressing prolactin does not cause his testosteronelevel to rise into the normal range. I suspect that his significant morbid obesity is playing a large role in lowering his testosterone leve Last refill: 09/06/2018 Jacy carnes LPN documented in this encounter Plan of Treatment Not on file documented as of this encounter Visit Diagnoses Not on filedocumented in this encounter Care Teams Patient Registration Manager Relationship Specialty Start Date End Date Татьяна Koehler PA [address] [place] [address] PCP - General 04/12/13 10/11/19 documented as of this encounter
--- OUTSIDE RECORDS SUMMARY | 2023-10-07 20:52 | XMS_ITS | Encounter Summary ---
Author Organization [facility] [place] [address] Care Team Providers Care Adoption Social Worker Name Role Phone Татьяна Koehler Primary Care Provider +1- [phone] Encounter Details Date Type Department Care Team ([facility] st Contact Info) Description 11/19/2018 Telephone [place] [address] Opal Delgado, RD [facility] [place] [address] Social History Tobacco Use Types Packs/Day Years [...] encounter Miscellaneous Notes * Telephone Encounter - Opal Delgado, RD - 11/19/2018 1:47 PM EDT I called Darvin today to touch base regarding his weight loss requirement for bariatric surgery. Advised he is required to lose 20#; his start weight has been adjusted to his most recent weight which is 453#. Goal weight 433#. Pt reports he was recently weighed at the doctor's office and his current weight is 441#. Congratulated pt on his recent weight and encouraged him to keep up the good work. He said it's been difficult at times to eat well because he is going through a difficult time, he is going through a divorce. Advised pt we still have not received his 2nd and 3rd dietary visits. Provided pt with our fax number and asked him to have his provider fax us the notes. Pt has an appointment with Ana M Vaz, PhD on Thursday11/22/18. documented in this encounter Plan of Treatment Not on file documented as of this encounter Visit Diagnoses Not on filedocumented in this encounter Care Teams Adoption Social Worker Relationship Specialty Start Date End Date Татьяна Koehler PA [address] [place] [address] PCP - General 04/12/13 10/11/19 documented as of this encounter
--- OUTSIDE RECORDS SUMMARY | 2023-10-07 20:52 | XMS_ITS | Encounter Summary ---
Author Organization [facility] Address [facility] [place] [address] Care Team Providers Care Hearing Aid Fitter Name Role Phone Татьяна Koehler Primary Care Provider +1- [phone] Encounter Details Date Type Department Care Team (Latest Contact Info) Description 01/07/2022 2:00 PM EST TH Visit (TeleHealth) [place] [id number] Liv Hernandes MD [facility] [place] [address] PATIENT NOT SEEN; Hypogonadism male; Prolactinoma; Vitamin D deficiency; Controlled [...] Sign Reading Time Taken Comments Blood Pressure 146/91 01/07/2022 2:22 PM EST Pulse 78 01/07/2022 2:22 PM EST Temperature - - Respiratory Rate 12 01/07/2022 2:22 PM EST Oxygen Saturation 95% 01/07/2022 2:22 PM EST Inhaled Oxygen Concentration - - Weight 213.2 kg (470 lb) 01/07/2022 2:22 PM EST Height 177.8 cm (5' 10) 01/07/2022 2:22 PM EST Body Mass Index 67.44 01/07/2022 2:22 PM EST documented in this encounter Patient Instructions * Patient Instructions* Liv Hernandes MD - 01/07/2022 2:00 PM EST Outside lab on 11/28/20 01/14/22 Testosterone 518 407 Free Testos 14.5 11.1 (normal 4.1-15.6) better on q10 days shots for Depot testosterone PRL 15.8 12.7, OK (was high at 32-34 prior) TSH 1.7 1.81 FT4 1.09 0.82, ok for thyroid A1c 5.7% 6.4%, still excellent diabetes control CBC Hb 14.8/Hct 46.6 15/45%, ok CMP All normal OK (BG 100, Ca 8.9, Cr 1.1) 25vitamin D 16.4, very low 13, still very low (normal 30-100) => to start vitD 50,000 iu weekly as prescribed for your bone health To do annual lab soon at [facility] lab. LIV HERNANDES MD documented in this encounter Progress Notes * Liv Hernandes MD - 01/07/2022 2:00 PM EST Subjective: ENDOCRINE FOLLOW UP NOTE Name: Shasta Sanz : 1970 MRN: .[id number] PCP: ZANE Ulloa Date: 01/07/22 Patient verbally consents to this telehealth visit and understands that this visit may be billed, similar to a clinic office visit. I provided care to the patient today via VDO or Phone call. The total time associated with this visit, chart review, documentation, and coordination of care was 30 minutes. 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 HPI: Patient ID: Shasta Sanz is a 51 y.o. male who used to see Dr. 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 He also has what appears to be idiopathic hypogonadism despite having normalized PRL on Rx that is probably a combination of his weight (BMI>60) and perhaps the opioids that he is on. He is currently on testosterone cypionate 80 mg c q 10 days (lowered from 100 mg weekly since 12/20/20 due to a borderline high free testosterone at 14.5 (normal 4.0-15.6). He still is in the process of [...] 30 to 23u qhs and then off during the interim. Currently he is taking Farxiga 5 mg qd and stopped victoza 1.8 mg sc qd or ozempic weekly. His PCP already worked on getting Dexcom G6 CGM for him. He used to have low vitamin D at 18 (12/23/2010) and started on vitamin D 50,000 iu weekly and thenquit it long ago. 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 Review of Systems Constitutional: A bit tired, + recent weight change (per our record down from 453 in 2019 to 446 lbs in 2020, 430 lb, and up to 470 lbs Now per pt's report for today weight). No heat or cold intolerance Endocrine: No thyroid problems. No abnormal sweating or flushing. Some intermittemt galactorrhea and breast tenderness with itchy nipples No difficulty with erection. Integument: No ulcerations. No easily bruising. Neurological: +some migraine headache today => BP 146/91 borderline high. No weakness. No seizure, fainting or dizziness [...] Z90.01 ??? Prolactinoma D35.2 ??? Atherosclerosis of [place] coronary artery of [place] heart without angina pectoris I25.10 ??? COPD (chronic obstructive pulmonary disease) J44.9 ??? Left heart failure with left ejection fraction 41-49 percent I50.1 ??? Migraine G43.909 ??? Narcolepsy G47.419 Social History Tobacco Use ??? Smoking status: Former Packs/day: 1.50 Types: Cigarettes Quit date: 08/23/2017 Years since quittin.3 ??? Smokeless tobacco: Never Vaping Use ??? Vaping Use: Every day Substance Use Topics ??? Alcohol use: No Comment: rarely Family History Problem Relation Age of Onset ??? Coronary Artery Disease Mother ??? Obesity Mother ??? Heart Disease Mother ??? High Blood Pressure Father ??? Obesity Father ??? Cancer Father ??? Diabetes Maternal Aunt ??? Thyroid Disease Maternal Aunt Results for SHASTA [...] to fatty liver Outside lab on 11/28/20 01/14/22 Testosterone 518 407 Free Testos 14.5 11.1 (normal 4.1-15.6) better on q10 days shots for Depot testosterone PRL 15.8 12.7, OK (was high at 32-34 prior) TSH 1.7 1.81 FT4 1.09 0.82, ok for thyroid A1c 5.7% 6.4%, still excellent diabetes control CBC Hb 14.8/Hct 46.6 15/45%, ok CMP All normal OK (BG 100, Ca 8.9, Cr 1.1) 25vitamin D 16.4, very low 13, still very low (normal 30-100) => to start vitD 50,000 iu weekly as prescribed for your bone health *called pt for lab results & Rx plan to start vitD weekly (not done yet per pt) and continue Depot Testosterone shots every 10 days. Assessment and Plan: 51 y.o. man with morbid obesity (BMI 60+) with metabolic syndrome, LARSON, COPD, CAD, CHF, seen for annual follow-up at Endocrine clinic via VDO today for his central hypogonadism and hyperprolactinenia which appears to be a micro- prolactinoma (negative MRI Brain on 09/20/2010). His PRL was slightly high at 30s => then better at 15.8 last year on the same dose of cabergoline 0.5 mg twice per week. He also has central hypogonadism due to a combination of his extreme weight, hyperPRL and perhaps the opioids that he is on. He is currently on testosterone cypionate 80 mg (0.4 ml) every 10 days (instead of weekly) subcutaneously and will need to recheck lab today. He still is in the process of [...] Novolog and Farxiga, victoza 1.8 mg daily (we tried to switch to ozempic weekly) to help him lose wt and reduce cardiovascular outcome but lately stopped all the injections and only used farxiga daily with his PCP. We suggested to Shasta that we check some labs including a free and total testosterone, PRL, TSH, FT4, CBC, CMP, PSA, A1c, 25vitamin D, etc as ordered below (he prefers to do lab locally). Orders Placed This Encounter Procedures ??? Testosterone, total and free ??? Prolactin ??? Hemoglobin A1c ??? TSH ??? Comprehensive metabolic panel (non-fasting) ??? Vitamin D, 25-Hydroxy ??? Lipid Panel (Reflex Direct LDL) ??? U Albumin/Cre Ratio ??? CBC (with Diff) ??? T4, free ??? PSA (Ultrasensitive) I will help adjust his testosterone dose if indicated and meanwhile to cont 80 mg sc q 10 days shots. We did emphasize to him that I think in the long run bariatric surgery is the best treatment he canhave to feel better and to be healthy long-term. I encouraged him to continue follow-up with [facility] and consider GLP-1 to help him lose weight again. He is followed by his PCP [email or web address]. To start vitamin D 50,000 iu weekly as prescribed again today. RTC: 6-12 months, at least annually Liv Hernandes MD, PhD, FACE, FACP documented in this encounter Miscellaneous Notes * Addendum Note - Liv Hernandes MD - 01/07/2022 2:00 PM ESTAddended by: LIV HERNANDES on: 01/07/2022 02:40 PM Modules accepted: Orders * Addendum Note - Liv Hernandes MD - 01/07/2022 2:00 PM ESTAddended by: LIV HERNANDES on: 01/07/2022 06:06 PM Modules accepted: Level of Service documented in this encounter Plan of Treatment Not on file documented as of this encounter Visit Diagnoses Diagnosis DH PATIENT NOT SEEN Hypogonadism male Other testicular hypofunction 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) Vitamin D deficiency Unspecified vitamin D deficiency Controlled type 2 diabetes mellitus with hyperglycemia, with long-term current use of insulin Urinary frequency documented in this encounter Care Teams Hearing Aid Fitter Relationship Specialty Start Date End Date Татьяна Koehler PA [address] [place] [address] PCP - General Family Medicine 10/19/19 documented as of this encounter
--- OUTSIDE RECORDS SUMMARY | 2023-10-07 20:52 | XMS_ITS | Encounter Summary ---
Author [facility] [place] [place] [address] Care Team Providers Care T Rail Turner Name Role Phone Татьяна Koehler Primary Care Provider +1- [phone] Reason for Visit * Reason Comments Medication Refill Encounter Details Date Type Department Care Team ( st Contact Info) Description 05/10/2020 Ref[place] [address] Darvin Durand MD [facility] [place] [address] Social History Tobacco Use Types Packs/Day Years [...] on filedocumented in this encounter Care Teams T Rail Turner Relationship Specialty Start Date End Date Татьяна Koehler PA [address] [place] [address] PCP - General Family Medicine 10/19/19 documented as of this encounter
--- OUTSIDE RECORDS SUMMARY | 2023-10-07 20:52 | XMS_ITS | Encounter Summary ---
Author Organization [facility] [place] [address] Care Team Providers Care Sql Server Consultant Name Role Phone Татьяна Koehler Primary Care Provider +1- [phone] Encounter Details Date Type Department Care Team ([facility] st Contact Info) Description 05/20/2018 Telephone Gastroenterology at [facility] [place] [address] Carolyne Adams Social History Tobacco Use Types Packs/Day Years [...] encounter Miscellaneous Notes * Telephone Encounter - Carolyne Adams - 05/20/2018 3:01 PM EDT Patient no showed his appointment for his upper endoscopy. This is the second no show for an egd. documented in this encounter Plan of Treatment Not on file documented as of this encounter Visit Diagnoses Not on filedocumented in this encounter Care Teams Sql Server Consultant Relationship Specialty Start Date End Date Татьяна Koehler PA [address] [place] [address] PCP - General 04/12/13 10/11/19 documented as of this encounter
--- OUTSIDE RECORDS SUMMARY | 2023-10-07 20:52 | XMS_ITS | Encounter Summary ---
Author Organization [facility] [place] [address] Care Team Providers Care Insurance Account Executive Name Role Phone Татьяна Koehler Primary Care Provider +1- [phone] Reason for Visit * Reason Onset Date Comments Follow-up 10/19/2018 Encounter Details Date Type Department Care Team ( st Contact Info) Description 10/19/2018 Telephone [place] [phone] Hermelinda Graham, COMMUNITY REINVESTMENT ACT OFFICER [facility] [place] [address] Follow-up Social History Tobacco Use Types Packs/Day Years [...] encounter Miscellaneous Notes * Telephone Encounter - Hermelinda Graham - 10/19/2018 3:47 PM EDT Bariatric Surgery Program I returned Darvin's earlier call. He reports that he was unable to lost the recommended 20 pounds perteam discussion last December. He reports he lost ~6 pounds. He has worsening back pain and medication is ineffective. He would like to proceed with surgery. He is not tracking his intake. He met with Dr Vaz last December, was given yellow light status. She recommended that he contact her after he has stable housing. He reports that he stopped vaping after his visit with Dr. Vaz, and is eating 3 meals a day. He has cut out sweets from his diet. He met with an RD at [facility] x 3 visits, last ? October 2017, no recent RD visits. He reports that his last weight at primary care office afew weeks ago was just under 450 lbs. He has another appt tomorrow. Plan: his healthy lifestyle improvements were recognized. He was advised to contact Dr. Vaz at [phone] to follow up, per her recommendations. He was advised to send the remaining 2 nutrition visits (we have a copy of his August 2017 visit) and his recent primary care visits for our review.We will follow up with him after his records are received and discussion with Dr. Vaz and a surgeon. He understands the plan of care. documented in this encounter Plan of Treatment Not on file documented as of this encounter Visit Diagnoses Not on filedocumented in this encounter Care Teams Insurance Account Executive Relationship Specialty Start Date End Date Татьяна Koehler PA [address] [place] [address] PCP - General 04/12/13 10/11/19 documented as of this encounter
--- OUTSIDE RECORDS SUMMARY | 2023-10-07 20:52 | XMS_ITS | Encounter Summary ---
Author Organization [facility] [place] [address] Care Team Providers Care Manager Government Name Role Phone Татьяна Koehler Primary Care Provider +1- [phone] Encounter Details Date Type Department Care Team ([facility] st Contact Info) Description 07/28/2022 Notes Only Hematology Oncology at [address] [address] Meenu Vicente RN Social History Tobacco Use Types Packs/Day [...] as of this encounter Progress Notes * Meenu Vicente RN - 07/28/2022 12:30 PM EDT Received referral from Primary Care Татьяна Koehler of [address] on 01/27/2022. Patient was scheduled for initial new patient appointment with Dr. Villa on 05/05/2022. -Patientcancelled appointment. Patient was rescheduled for initial new patient appointment with Dr. Villa on 05/26/2022. - Patient cancelled appointment. Patient was rescheduled for initial new patient appointment with Dr. Villa on 06/23/2022. -Patient was a No Show for this appointment Patient was rescheduled for initial new patient appointment with Dr. Villa on 07-28-2022. -Patient cancelled this appointment. [facility] was notified that patient was not rescheduled and message given to Monica bautista will inform Татьяна Koehler, Primary Care Provider. documented in this encounter Plan of Treatment Not on file documented as of this encounter Visit Diagnoses Not on filedocumented in this encounter Care Teams Manager Government Relationship Specialty Start Date End Date Татьяна Koehler PA [address] [place] [address] PCP - General Family Medicine 10/19/19 documented as of this encounter
--- OUTSIDE RECORDS SUMMARY | 2023-10-07 20:52 | XMS_ITS | Encounter Summary ---
[place] [address] Care Team Providers Care Enrichment Teacher Name Role Phone Татьяна Koehler Primary Care Provider +1- [phone] Encounter Details Date Type Department Care Team ([facility] Contact Info) Description 12/03/2020 Telephone [place] [address] Jagruti Gomez Social History Tobacco Use Types Packs/Day Years [...] on filedocumented in this encounter Care Teams Enrichment Teacher Relationship Specialty Start Date End Date Татьяна Koehler PA [address] [place], [place] [address] PCP - General Family Medicine 10/19/19 documented as of this encounter
--- OUTSIDE RECORDS SUMMARY | 2023-10-07 20:52 | XMS_ITS | Encounter Summary ---
Author Organization [facility] [place] [address] Care Team Providers Care Blood Typer Name Role Phone Татьяна Koehler Primary Care Provider +1- [phone] Reason for Visit * Reason Onset Date Comments Medication Refill 05/09/2022 Encounter Details Date Type Department Care Team (Late st Contact Info) Description 05/09/2022 Refill Endocrinology at [facility] [place] [phone] Luis Chen RN Social History Tobacco Use Types Packs/Day [...] Telephone Encounter - Luis Chen RN - 05/09/2022 11:16 AM EDT Patient left voicemail requesting a refill of his testosterone. This was already sent in on 04/15/22 to [facility] in [facility]. Returned call to patient, he says pharmacy tells him they do not have this prescription on file. Placed call to the pharmacy. They do have this on file and can fill it today. Returned call to patient to let him know. He verbalized understanding and will get the prescriptionfrom them. documented in this encounter Plan of Treatment Not on file documented as of this encounter Visit Diagnoses Not on filedocumented in this encounter Care Teams Blood Typer Relationship Specialty Start Date End Date Татьяна Koehler PA [address] [place] [address] PCP - General Family Medicine 10/19/19 documented as of this encounter
--- OUTSIDE RECORDS SUMMARY | 2023-10-07 20:52 | XMS_ITS | Encounter Summary ---
Author Organization [facility] Address [facility] [place] [address] Care Team Providers Care Cushion Stuffer Name Role Phone Татьяна Koehler Primary Care Provider +1- [phone] Encounter Details Date Type Department Care Team ([facility] st Contact Info) Description 09/06/2018 Orders Only [place] [address] Darvin Durand MD [facility] [place] [place] [address] Prolactinoma Social History Tobacco Use Types Packs/Day [...] documented as of this encounter Results * (ABNORMAL) Testosterone, total (09/06/2018 11:16 AM EDT) Testosterone 9.63(H) 2.49 - 8.36 ng/mL [facility] Comment: Pediatric Reference Ranges: ? Males [...] In Lab Darvin Durand MD CHEMISTRY ORDERABLES [facility] [place] [address] * (ABNORMAL) Prolactin (09/06/2018 11:16 AM EDT) Prolactin 34.6(H) 4.0 - 15.2 ng/mL [facility] Blood specimen (specimen) 09/06/2018 11:16 AM EDT 09/06/2018 11:23 AM EDT Narrative Resulting Agency Comment Spec In Lab Darvin Durand MD CHEMISTRY ORDERABLES [facility] [place] [address] documented in this encounter Visit Diagnoses Diagnosis 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) documented in this encounter Care Teams Cushion Stuffer Relationship Specialty Start Date End Date Татьяна Koehler PA [address] [place] [address] PCP - General 04/12/13 10/11/19 documented as of this encounter
--- OUTSIDE RECORDS SUMMARY | 2023-10-07 20:52 | XMS_ITS | Encounter Summary ---
Author Organization [facility] [place] [address] Care Team Providers Care Hotel Front Desk Agent Name Role Phone Татьяна Koehler Primary Care Provider +1- [phone] Encounter Details Date Type Department Care Team (Latest Contact Info) Description 12/27/2019 9:32 PM EST - 12/27/2019 11:59 PM EST Hospital [place] [phone] Discharge Disposition: Home Social History Tobacco Use [...] on file documented as of this encounter Medications at Time of Discharge Medication Sig Dispensed Refills Start Date End Date Vraylar 4.5 mg Capsule daily. 07/28/2019 VENTOLIN [...] capsule Take 400 mg by mouth daily. BD Luer-Lana Syringe 3 mL 23 x 1 Syringe USE ONE SYRINGE EVERY 7 DAYS 12 Syringe 1 11/28/2019 05/09/2020 testosterone cypionate (DepoTESTOSTERONE CYPIONATE) 200 mg/mL Oil INJECT 0.4MLS INTO THE MUSCLE EVERY 7 DAYS 10 mL 3 03/24/2019 11/23/2020 BD LUER-LANA SYRINGE 3 mL 22 gauge x 1 SyringeIndications:Pro lactinoma USE WITH INJECTION ONCE A WEEK 30 Syringe 5 08/03/2018 09/23/2021 syringe with needle, disposable, (BD LUER-LANA SYRINGE) 3 mL 22 gauge x 1 SyringeIndications:Pro lactinoma 1 each by [facility]Non-Drug; Combo Route) route once a week. 30 Syringe 5 05/07/2018 09/23/2021 cabergoline (DOSTINEX) 0.5 mg Tablet Take 0.5 tablets by mouth twice a week. 32 tablet 4 01/31/2016 11/23/2020 citalopram (CELEXA) 40 mg tablet 08/03/2003 11/23/2020 documented as of this encounter Plan of Treatment Not on file documented as of this encounter Procedures Procedure Name Priority Date/Time Associated Diagnosis Comments COVID-19 PCR Routine 12/27/2019 3:40 PM EST documented in this encounter Results * COVID-19 PCR (12/27/2019 3:40 PM EST) SARS-CoV-[address] Not Detect[address] [facility] Comment: This result should be interpreted in combination with the clinical observations, patient history and epidemiological information in making a final diagnosis. For testing of asymptomatic individuals, assay performance characteristics and clinical utility have not been evaluated. Testing for SARS-CoV-2 (Severe acute respiratory syndrome coronavirus 2, formerly known as 2019 novel coronavirus or 2019-nCoV) to aid in the diagnosis of COVID-19 is performed using the [employer] m SARS-CoV-2 Assay as authorized by the FDA Emergency Use Authorization (EUA). This EUA assay is intended for In-vitro Diagnostic (IVD) use with respiratory specimens such as nasopharyngeal swabs collected from individuals during the acute phase of infection. This assay is performed based on the instructions for use provided by [employer] and additional guidance provided by CDC and FDA. Testing is performed in the [facility] within the Department of Pathology and Laboratory Medicine at [facility], certified under the Clinical Laboratory Improvement Amendments of 1988 (CLIA), 42 U.S.C. 263a, to perform high complexity tests. Assay performance has been verified according to clinical laboratory regulatory requirements for use with specimens collected from individuals suspected of COVID-19. Test results are provided above. A result of ? Not Detected? indicates that the viral RNA target is not present above the limit of detection, but does not preclude SARS-CoV-2 infection. False negative results may occur if a specimen is improperly collected, transported or handled; if amplification inhibitors are present; or if inadequate numbers of viral particles are present in the specimen. When a diagnostic test is negative, the possibility of a false negative result should be considered in the context of a patient? s recent exposures and the presence of clinical signs and symptoms consistent with COVID-19. A result of ? Detected? indicates that RNA from SARS-CoV-2 was detected and the patient is infected. As required or requested by public health authorities, positive specimens may be sent for additional testing. Positive and negative predictive values for this test are highly dependent on disease prevalence. A result of ? Invalid? indicates that neither the viral RNA targets nor the internal control target was detected. An invalid result suggests the presence of inhibitors. Recollection and re-testing is recommended in the case of an invalid result. CDC COVID-19 criteria for testing on human specimens and clinical management guidance information are available at the CDC Coronavirus Disease 2019 (COVID-19) webpage under ? Information for Healthcare Professionals? (https://www.cdc.gov/coronavirus/2019-ncov/hcp/index.html) Additional information about this and other EUA tests can be found in provider and patient fact sheets at the following FDA website: https://www.fda.gov/medical-devices/nnhsvnblyrk-hoslnmf-0383-yrvbn-18-udenhadog- use-a xctbtqvsqrhpp-njtpqxc-cbhupnp/qwgwc-umrzdiyzyff-wkck SARS-CoV-[address] [facility] Specimen from nose (specimen) Other / Unknown 12/27/2019 3:40 PM EST 12/28/2019 11:17 PM EST Narrative Resulting Agency Comment Spec In Lab Gaetano Landeros MD [place] [address] documented in this encounter Visit Diagnoses Not on filedocumented in this encounter Care Teams Hotel Front Desk Agent Relationship Specialty Start Date End Date Татьяна Koehler PA [address] [place] [address] PCP - General Family Medicine 10/19/19 documented as of this encounter
--- OUTSIDE RECORDS SUMMARY | 2023-10-07 20:52 | XMS_ITS | Encounter Summary ---
[place] [address] Care Team Providers Care Continuous Miner Name Role Phone Татьяна Koehler Primary Care Provider +1- [phone] Encounter Details Date Type Department Care Team (Latest Contact Info) Description 01/07/2022 Travel Social History Tobacco Use Types Packs/Day [...] on filedocumented in this encounter Care Teams Continuous Miner Relationship Specialty Start Date End Date Татьяна Koehler PA [address] [place] [address] PCP - General Family Medicine 10/19/19 documented as of this encounter
--- OUTSIDE RECORDS SUMMARY | 2023-10-07 20:52 | XMS_ITS | Encounter Summary ---
Author Organization [facility] [place] [address] Care Team Providers Care Crm Marketing Executive Name Role Phone Татьяна Koehler Primary Care Provider +1- [phone] Reason for Visit * Reason Comments Medication Refill Encounter Details Date Type Department Care Team ( st Contact Info) Description 10/12/2021 Refill [place] [address] Liv Andino MD [facility] [place] [address] Social History Tobacco Use Types Packs/Day Years [...] on filedocumented in this encounter Care Teams Crm Marketing Executive Relationship Specialty Start Date End Date Татьяна Koehler PA [address] [place] [address] PCP - General Family Medicine 10/19/19 documented as of this encounter
--- OUTSIDE RECORDS SUMMARY | 2023-10-07 20:52 | XMS_ITS | Encounter Summary ---
[place] [address] Care Team Providers Care Plain Goods Hemmer Name Role Phone Татьяна Koehler Primary Care Provider +1- [phone] Encounter Details Date Type Department Care Team ([facility] st Contact Info) Description 04/30/2022 Ancillary Procedure Radiology Library at [facility] [place] [address] Татьяна Koehler PA [address] [place] [address] Social History Tobacco Use Types Packs/Day Years [...] Procedure Name Priority Date/Time Associated Diagnosis Comments FILM LIBRARY STORAGE ONLY DX HIP Routine 04/30/2022 12:00 AM EST documented in this encounter Results * Film Library- Storage Only DX Hip (04/30/2022 12:00 AM EST) Narrative [facility] - 05/08/2022 11:30 AM EDT This exam is auto-finalizing. It's purpose is for storage only. Татьяна DEGROOT IMG FILM LIBRARY O RDERABLES DH [place], [place] documented in this encounter Visit Diagnoses Not on filedocumented in this encounter Care Teams Plain Goods Hemmer Relationship Specialty Start Date End Date Татьяна Koehler PA [address] [place] [address] PCP - General Family Medicine 10/19/19 documented as of this encounter
--- OUTSIDE RECORDS SUMMARY | 2023-10-07 20:52 | XMS_ITS | Encounter Summary ---
[place] [address] Care Team Providers Care Flux Core Welder Name Role Phone Татьяна Koehler Primary Care Provider +1- [phone] Encounter Details Date Type Department Care Team (Late st Contact Info) Description 07/08/2018 Ancillary Procedure [place] [address] Татьяна Koehler PA [address] [place] [address] Social History Tobacco Use Types Packs/Day Years [...] Associated Diagnosis Comments FILM LIBRARY STORAGE ONLY MR SPINE Routine 07/08/2018 12:00 AM EDT documented in this encounter Results * Film Library- Storage Only MR Spine (07/08/2018 12:00 AM EDT) Narrative [facility] - 10/23/2018 10:26 PM EDT This exam is auto-finalizing. It's purpose is for storage only. Татьяна DEGROOT IMG FILM LIBRARY O RDERABLES DH [place], [place] documented in this encounter Visit Diagnoses Not on filedocumented in this encounter Care Teams Flux Core Welder Relationship Specialty Start Date End Date Татьяна Koehler PA [address] [place] [address] PCP - General 04/12/13 10/11/19 documented as of this encounter
--- OUTSIDE RECORDS SUMMARY | 2023-10-07 20:53 | XMS_ITS | Encounter Summary ---
Author Organization [facility] [place] [address] Care Team Providers Care Degreasing Solution Reclaimer Name Role Phone Татьяна Koehler Primary Care Provider +1- [phone] Encounter Details Date Type Department Care Team ([facility] st Contact Info) Description 10/13/2017 Telephone General Surgery at [facility] [place] [address] Camelia Escalona Social History Tobacco Use Types Packs/Day Years Used Date Smoking Tobacco: Every Day Cigarettes Smokeless Tobacco: Never Alcohol Use Standard Drinks/Week Comments No 0 (1 standard drink = 0.6 oz pur e alcohol) Sex and Gender Information Value Date Recorded Sex Assigned at Not on file Gender Identity Not on file Sexual Orientation Not on file documented as of this encounter Miscellaneous Notes * Telephone Encounter - Camelia Kapoor - 10/13/2017 12:46 PM EDT lmom for patient that we got the packet of info from the intro however his start weight is from 09/09/17 and he attended the intro in June so we need a start weight previous to June, I see he was saw here at [facility] in April of 2017 and had a weight of 397 and 5' 10 left that information on his machine. Also let him know he needs to finish the remedy registration and give me a call when that is done. documented in this encounter Plan of Treatment Not on file documented as of this encounter Visit Diagnoses Not on filedocumented in this encounter Care Teams Degreasing Solution Reclaimer Relationship Specialty Start Date End Date Татьяна Koehler PA [address] [place] [address] PCP - General 04/12/13 10/11/19 documented as of this encounter
--- OUTSIDE RECORDS SUMMARY | 2023-10-07 20:53 | XMS_ITS | Encounter Summary ---
Author Organization [facility] [place] [address] Care Team Providers Care Manager Intel Name Role Phone Татьяна Koehler Primary Care Provider +1- [phone] Reason for Visit * Reason Onset Date Comments Prior Authorization 02/07/2016 Encounter Details Date Type Department Care Team ([facility] st Contact Info) Description 02/07/2016 Telephone [place] [address] Cony Toledo Prior Authorization Social History Tobacco [...] * Telephone Encounter - Cony Toledo - 02/07/2016 11:01 AM EST Medication Prior Authorization CHUCK Medication name/dose/directions: ANDROGEL 1.62% 20.25MG - PLACE 40.5MG ONTO SKIN DAILY Rationale for request: HYPOGONADISM Health plan: [employer] Authorizing applications sales representative name: TONY Faxed to health plan on: 02/07/16 Health plan decision: DENIED Quantity approved: COVERED ALTERNATIVES: ANDRODERM, AXIRON Authorization number: Start date: End date: Patient notified? Pharmacy notified? documented in this encounter Plan of Treatment Not on file documented as of this encounter Visit Diagnoses Not on filedocumented in this encounter Care Teams Manager Intel Relationship Specialty Start Date End Date Татьяна Koehler PA [address] [place] [address] PCP - General 04/12/13 10/11/19 documented as of this encounter
--- OUTSIDE RECORDS SUMMARY | 2023-10-07 20:53 | XMS_ITS | Encounter Summary ---
Author Organization [facility] Address [facility] [place] [address] Care Team Providers Care Broom Worker Name Role Phone Татьяна Koehler Primary Care Provider +1- [phone] Encounter Details Date Type Department Care Team (Late st Contact Info) Description 04/10/2018 Orders Only Cardiology at [address] [address] [facility] [place] [address] Cardiomyopathy, unspecified type; Abnormal stress test Social History Tobacco Use Types Packs/Day Years [...] Procedure Name Priority Date/Time Associated Diagnosis Comments CARDIAC CATHETERIZATION Routine 04/19/19 19 2:23 PM EST Cardiomyopathy, unspecified type Abnormal stress test documented in this encounter Results * CARDIAC CATHETERIZATION (04/19/2018 2:23 PM EST) Anatomical Region Laterality Modality Other Narrative 04/19/2018 6:24 PM EST ?[facility] ? Cardiac Catheterization/Intervention Report ? Patient Name: SHASTA SANZ. ? Procedure Date: 04/19/2018 ? A #: [id number] ? Primary Physician: Stefany, Edith J ? Case #: [id number] ? File Name: [id number] ? Catheterization Order Number: [id number] ? [facility] ? Final Report [place], [place] ? Patient Name: ? SHASTA R. FRANTZ ?ID#: ?[id number] ? : ?1970 ? Procedure Date: ? April 19, 2018 ?Case #: ? [id number] ? Room: ? 6 ? Case Physician: ? Edith Mccall M.D. ?Start: ?12:51 ?Fellow: ? Samia Kurtz M.D. ?Admission: ??04/19/2018 ? Referring ? Linwood Sanchez M.D. ? Physicians: ?Татьяна Koehler M.D. ? Procedures: ?* Coronary Angiography ?* Left Heart Catheterization ?* Coronary Optical Coherence Tomography ? History ?SHASTA SANZ is a 47 year old man. He has hypertension and a family ?history of coronary artery disease. The patient's smoking status is ?Former. He has hypercholesterolemia controlled by diet. The patient has a ?history of CHF. The CHF is NYHA Functional Class II, is newly diagnosed ?and is classified as Systolic. The patient also has a history of chronic ?obstructive pulmonary disease. Prior to the initiation of this procedure, ?the patient was designated as ASA Class III. The CSHA clinical frailty ?scale is 5. Mildly Frail. ? Diagnostic Tests: ?Prior Coronary Angiography: ? LV ejection fraction within 6 months is 45%. ?Electrocardiography: ? EKG was assessed by EKG. EKG was Abnormal. EKG showed other ? abnormality. ?Stress or Imaging Studies: ? A stress test with SPECT imaging was performed on 03/17/2018 and was ? Positive with Intermediate Risk results. ?Medications Prior to Procedure: ? ASA and Calcium Channel Blocking Agent. ? Indications for Diagnostic Cath: ?The priority of the diagnostic procedure was Elective. The indication for ?the labor relations specialist visit is worsening angina, suspected CAD and cardiomyopathy. ?Chest pain symptom assessment was: Atypical Angina. ? Technique: ?A 6 SLFr sheath was inserted in the right radial artery utilizing the ?Seldinger technique. The left coronary artery was injected utilizing a ?6Fr JL 4 catheter. A 6Fr JR 4 catheter was used to inject the right ?coronary artery. 8,000 units of heparin were administered. A total of ?200cc of Omnipaque were opened, 190cc of Omnipaque were administered and ?10cc of Omnipaque were wasted. Radiation: Fluoro time was 13.0 minutes, ?dose area product was 22,100 mGYcm2 and air kerma was 2,331 mGY. See the ?case log for additional details. ?The patient received the following medications prior to and during the ?procedure: ? Unfractionated Heparin. ? Hemodynamics: ?Left Heart Pressures ? Resting: ? Syst Diast ? EDP ?a ?v ? m ?Ao 123 ?? 88 ?105 ?LV 115 ? 20 ?Comments: ??LV pullback: ??LV 121, EDP 25. ??Ao 127/85 (105). ? Coronary Angiography: ?Dominance: Right ?Left Main ? The left main was normal, free of disease. ?Left Anterior Descending ? There was mild diffuse (<=25% stenosis) disease of the distal ? segment of the left anterior descending artery (LAD). ?Left Circumflex ? The left circumflex (LCX) was normal, free of disease. ? The circumflex artery is small with a compensatory large RCA. ?Right Coronary Artery ? There were multiple discrete 10% stenoses of the mid segment of the ? right coronary artery (RCA). ??The RCA was large. ? Intravascular Imaging/Physiology: ?Optical Coherence Tomography (OCT) was performed in the mid RCA using a 6 ?Fr JR 4.0 guiding catheter and a Radisphere Radiologyonuntapt OPTIS catheter. ??Imaging was ?successful. ??Image quality was good. ??The mid RCA showed no significant ?plaque with no significant calcification. ?Additional Findings: An area of distal RCA looked abnormal on angiogram, ?though it appeared it could be streaming artifact. ??Because this was the ?area in question on his stress test and his angiographic images were ?suboptimal due to body habitus the decision was made to do OCT to be ?certain this was not disease of significance. ??OCT images showed minimal ?evidence of mild coronary artery disease. ??There was no significant ?coronary artery disease in the segment in question. ??This area on ?angiogram is likely streaming. ? Vascular Access: ?Vascular Access Management: ? Mechanical Compression of the right radial artery access site was ? performed. ? Conclusions: ?* Nonobstructive coronary artery disease ?* Elevated left ventricular end diastolic pressure ? Complications/Events: ?The patient had no complications during these procedures. ? Comments: ?Mr. Sanz presented with a several month history of intermittent chest ?pain that is atypical in description, but does respond to nitroglycerin. ?A stress test showed a moderate sized apical and anterolateral fixed ?defect. ??He has no angiographically significant coronary artery disease. ?There was an area of possible abnormality versus streaming artifact that ?was imaged by OCT and found to be normal. ?Radial provided good support for procedure. ?The attending physician was present for the entire procedure. ?Dr. Edith Mccall M.D. was present during the moderate sedation ?intraservice time as documented by the sedation nurse. ??Case time = 01:25. ?Dr. Edith Mccall M.D. performed the coronary angiography, left ?heart catheterization and OCT-coronary. ? Edith J Coylewright, ? M.D. ? Electronically Signed by: Edith J Coylewright, M.D. ? Report Finalized: 04/19/2018 ??18:17 ? Procedure Note Edith Mccall MD - 04/19/2018 [facility] Cardiac Catheterization/Intervention Report Patient Name: SHASTA SANZ Procedure Date: 04/19/2018 A #: [id number] Primary Physician: Edith Mccall Case #: [id number] File Name: [id number] Catheterization Order Number: [id number] [facility] FinalReport [place], [place] Patient Name: SHASTA SANZ ID#:[id number] :1970 Procedure Date: April 19, 2018 Case #: [id number] Room: 6 Case Physician: Edith Mccall M.D. Start: 12:51 Fellow: Samia Kurtz M.D. Admission:04/19/2018 Referring Linwood Sanchez M.D. Physicians: Татьяна Koehler M.D. Procedures: * Coronary Angiography * Left Heart Catheterization * Coronary Optical Coherence Tomography History SHASTA SANZ is a 47 year old man. He has hypertension and a family history of coronary artery disease. The patient's smoking status is Former. He has hypercholesterolemia controlled by diet. The patienthas a history of CHF. The CHF is NYHA Functional Class II, is newlydiagnosed and is classified as Systolic. The patient also has a history ofchronic obstructive pulmonary disease. Prior to the initiation of thisprocedure, the patient was designated as ASA Class III. The [facility] clinicalfrailty scale is 5. Mildly Frail. Diagnostic Tests: Prior Coronary Angiography: LV ejection fraction within 6 months is 45%. Electrocardiography: EKG was assessed by EKG. EKG was Abnormal. EKG showed other abnormality. Stress or Imaging Studies: A stress test with SPECT imaging was performed on 03/17/2018and was Positive with Intermediate Risk results. Medications Prior to Procedure: ASA and Calcium Channel Blocking Agent. Indications for Diagnostic Cath: The priority of the diagnostic procedure was Elective. Theindication for the labor relations specialist visit is worsening angina, suspected CAD andcardiomyopathy. Chest pain symptom assessment was: Atypical Angina. Technique: A 6 SLFr sheath was inserted in the right radial artery utilizingthe Seldinger technique. The left coronary artery was injected utilizinga 6Fr JL 4 catheter. A 6Fr JR 4 catheter was used to inject the right coronary artery. 8,000 units of heparin were administered. A totalof 200cc of Omnipaque were opened, 190cc of Omnipaque were administeredand 10cc of Omnipaque were wasted. Radiation: Fluoro time was 13.0minutes, dose area product was 22,100 mGYcm2 and air kerma was 2,331 mGY. Seethe case log for additional details. The patient received the following medications prior to and duringthe procedure: Unfractionated Heparin. Hemodynamics: Left Heart Pressures Resting: Syst Diast EDP a v m Ao 123 88 105 LV 115 20 Comments: LV pullback: LV 121, EDP 25. Ao 127/85 (105). Coronary Angiography: Dominance: Right Left Main The left main was normal, free of disease. Left Anterior Descending There was mild diffuse (<=25% stenosis) disease of the distal segment of the left anterior descending artery (LAD). Left Circumflex The left circumflex (LCX) was normal, free of disease. The circumflex artery is small with a compensatory large RCA. Right Coronary Artery There were multiple discrete 10% stenoses of the mid segment ofthe right coronary artery (RCA). The RCA was large. Intravascular Imaging/Physiology: Optical Coherence Tomography (OCT) was performed in the mid RCAusing a 6 Fr JR 4.0 guiding catheter and a Dragonuntapt OPTIS catheter. Imagingwas successful. Image quality was good. The mid RCA showed nosignificant plaque with no significant calcification. Additional Findings: An area of distal RCA looked abnormal onangiogram, though it appeared it could be streaming artifact. Because this wasthe area in question on his stress test and his angiographic images were suboptimal due to body habitus the decision was made to do OCT to be certain this was not disease of significance. OCT images showedminimal evidence of mild coronary artery disease. There was no significant coronary artery disease in the segment in question. This area on angiogram is likely streaming. Vascular Access: Vascular Access Management: Mechanical Compression of the right radial artery access sitewas performed. Conclusions: * Nonobstructive coronary artery disease * Elevated left ventricular end diastolic pressure Complications/Events: The patient had no complications during these procedures. Comments: Mr. Sanz presented with a several month history of intermittentchest pain that is atypical in description, but does respond tonitroglycerin. A stress test showed a moderate sized apical and anterolateral fixed defect. He has no angiographically significant coronary arterydisease. There was an area of possible abnormality versus streaming artifactthat was imaged by OCT and found to be normal. Radial provided good support for procedure. The attending physician was present for the entire procedure. Dr. Edith Mccall M.D. was present during the moderate sedation intraservice time as documented by the sedation nurse. Case time =01:25. Dr. Edith Mccall M.D. performed the coronary angiography, left heart catheterization and OCT-coronary. Edith Donnelly M.D. Electronically Signed by: Edith Mccall M.D. Report Finalized: 04/19/2018 18:17 Edith Mccall MD CARDIAC CATH KATHRYN CINTRON documented in this encounter Visit Diagnoses Diagnosis Cardiomyopathy, unspecified type Abnormal stress test Other nonspecific abnormal cardiovascular system function study Cardiomyopathy, unspecified type Abnormal stress test Other nonspecific abnormal cardiovascular system function study documented in this encounter Care Teams Broom Worker Relationship Specialty Start Date End Date Татьяна Koehler PA [address] [place] [address] PCP - General 04/12/13 10/11/19 documented as of this encounter
--- OUTSIDE RECORDS SUMMARY | 2023-10-07 20:53 | XMS_ITS | Encounter Summary ---
Author Organization [facility] [place] [address] Care Team Providers Care Aws Developer Name Role Phone Татьяна Koehler Primary Care Provider +1- [phone] Reason for Visit * Reason Onset Date Comments Referral 11/12/2017 Encounter Details Date Type Department Care Team ([facility] st Contact Info) Description 11/12/2017 Telephone Weight and Wellness at [address] [address] Tonio Chen, beef trimmer Social History Tobacco Use Types Packs/Day Years [...] encounter Miscellaneous Notes * Telephone Encounter - Lisa Moses - 11/12/2017 12:19 PM EDT Please review Thank you documented in this encounter Plan of Treatment Not on file documented as of this encounter Visit Diagnoses Not on filedocumented in this encounter Care Teams Aws Developer Relationship Specialty Start Date End Date Татьяна Koehler PA [address] [place] [address] PCP - General 04/12/13 10/11/19 documented as of this encounter
--- OUTSIDE RECORDS SUMMARY | 2023-10-07 20:53 | XMS_ITS | Encounter Summary ---
Author Organization [facility] Address [facility] [place] [address] Care Team Providers Care Land Management Supervisor Name Role Phone Татьяна Koehler Primary Care Provider [phone]- [phone] Reason for Visit * Reason Comments Hypogonadism Encounter Details Date Type Department Care Team (Late st Contact Info) Description 05/05/2016 2:00 PM EDT Office [place] [address] Darvin Durand MD [facility] [place] [address] Hypogonadism male Social History Tobacco Use Types [...] Sign Reading Time Taken Comments Blood Pressure 169/109 05/05/2016 2:09 PM EDT [employer] drink @ time Pulse 61 05/05/2016 2:09 PM EDT Temperature - - Respiratory Rate - - Oxygen Saturation - - Inhaled Oxygen Concentration - - Weight 177.6 kg (391 lb 8 oz) 05/05/2016 2:09 PM EDT Height 177.8 cm (5' 10) 05/05/2016 2:0 9 PM EDT Body Mass Index 56.17 05/05/2016 2:09 PM EDT documented in this encounter Progress Notes * Darvin Durand MD - 05/05/2016 2:00 PM EDT Subjective: Patient ID: Darvin Sanz is a 45 y.o. 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 When I had seen him last he had stopped taking his cabergoline and his prolactin levels have risen up close to 90 ng/ml and his testosterone dropped below the normal range for an adult male. Complicating his hypogonadism however, is his morbid obesity which could also be contributing to his low testosterone. I had suggested to him that when I had seen him last that he both go back on cabergoline 0.5 mg twice a week which he has done and also to go on some testosterone replacement. He has been on the 4 mg patch which he does not like. He does not like it because it tends to fall off and is difficult to keep on. He is willing to either go on AndroGel (initially his insurance had refused AndroGel) or injectable testosterone. . HPI Review of Systems Objective: Physical Exam Constitutional: He is oriented to person, place, and time. He appears well- developed and well-nourished. Neurological: He is alert and oriented to person, place, and time. Psychiatric: He has a normal mood and affect. His behavior is normal. BP (!) 169/109 Comment: [employer] drink @ time Pulse 61 Ht 177.8 cm (5' 10) Wt (!) 177.6 kg (391 lb 8 oz) BMI 56.17 kg/m2 Assessment and Plan: Recent Results (from the past 24 hour(s)) Prolactin Result Value Ref Range Prolactin 7.8 4.0 - 15.2 ng/mL Testosterone, total Result Value Ref Range Testo Total 2.15 (L) 2.80 - 8.00 ng/mL Darvin's prolactin level has dropped significantly into the lower range half of normal on the cabergoline. His total testosterone level does remain low, although it is a little bit higher than when I last saw him. I suggested to him that he switch over to testosterone cypionate intramuscular injections every 2 weeks. I gave him the first dose of 150 mg a day, and he thought he would be able to continue to give himself the shots every 2 weeks. I will then make an appointment to see him back in clinic and to re-evaluate the situation and to see if he needs an adjustment in his testosterone dose. At this point, I do not think he needs a repeat MRI since he has had a significant drop of his prolactin on cabergoline. Greater than 20 of the 25-minute appointment were spent discussing with him ongoing treatment with Depo-Testosterone. ' Darvin's last MRI was in 2010 and it showed a normal pituitary gland. documented in this encounter Plan of Treatment Not on file documented as of this encounter Visit Diagnoses Diagnosis Hypogonadism male Other testicular hypofunction documented in this encounter Administered Medications Inactive Administered Medications - up to 3 most recent administrations Medication Order MAR Action Action Date Dose Rate Site testosterone cypionate (DepoTESTOSTERONE CYPIONATE) injection 150 mg 150 mg, Intramuscular, ONCE, 1 dose, On 05/05/16 at 1515, Routine Given 05/05/2016 3:00 PM EDT 150 mg Left Gluteal documented in this encounter Care Teams Land Management Supervisor Relationship Specialty Start Date End Date Татьяна Koehler PA [address] [place] [address] PCP - General 04/12/13 10/11/19 documented as of this encounter
--- OUTSIDE RECORDS SUMMARY | 2023-10-07 20:53 | XMS_ITS | Encounter Summary ---
Author Organization [facility] Address [facility] [place] [address] Care Team Providers Care Human Resources Receptionist Name Role Phone Татьяна Koehler Primary Care Provider [phone]- [phone] Encounter Details Date Type Department Care Team (Latest Contact Info) Description 04/19/2018 9:45 AM EST - 04/19/2018 5:13 PM EST Hospital Encounter [place] [id number] Andres Mccall MD [facility] [place] [address] Prolactinoma; Cardiomyopathy, unspecified type; Abnormal stress test Discharge Disposition: Home Social History Tobacco Use [...] Sign Reading Time Taken Comments Blood Pressure 103/69 04/19/2018 4:45 PM EST Pulse 64 04/19/2018 4:22 PM EST Temperature 36.4 ??C (97.5 ??F) 04/19/2018 4:22 PM ES T Respiratory Rate 18 04/19/2018 4:45 PM EST Oxygen Saturation 95% 04/19/2018 4:45 PM EST Inhaled Oxygen Concentration - - Weight 203.7 kg (449 lb) 04/16/2018 9:00 AM EST Height - - Body Mass Index 64.42 01/11/2018 9:52 AM EST documented in this encounter Discharge Instructions * Discharge Instructions* Karmen Chapa RN - 04/19/2018 5:04 PM EST Radial Access for Heart Cath Activity If you are discharged the same day as your procedure, do not drive yourself home. Arrange to have another person drive. You may walk around when you get home, but keep your activity at a minimum until the morning. Try to avoid bending your wrist for the first 12-24 hours after the procedure to allow the artery to fully heal. Do not participate in active sports for 48 hours. Do not lift anything greater than 5 lbs. You may engage in sexual activity after 48 hours. Catheter Insertion Area Care Take the dressing off of the catheter insertion site the morning following the procedure. Leave thesite open to air. If the site is oozing you may cover it with a band aid. You may take a shower if you wish. Look for signs of infection over the next several days. It is uncommon to have any visible blood at the site, any obvious bleeding is abnormal. A bruise around the wrist or small lump under the skin is normal: they generally disappear in 3-5 days. Expect some mild tenderness over the area where the catheter was inserted. You will notice this after the local anesthetic (numbing medicine) wears off. This should improve during the 24-48 hours after the procedure. You may use acetaminophen (tylenol) if needed. Contact your doctor if the discomfort worsens. Problems to Watch for If there is bright red blood flowing from the catheter insertion area: *stop what you are doing *hold pressure steadily on the area for 15 minutes *call for help *if the bleeding does not stop in 15 minutes call 911 for an ambulance. If there is swelling with black and blue color at the catheter insertion site, there may be bleeding inside. Contact the doctor if there is any increase in size. Look at the insertion site for the first few days at home. Signs of infection are: *redness *swelling *yellow, white, green or brown foul smelling drainage. *increased soreness If you think there is an infection, take your temperature. Then call your doctor. The limb on the side where you had your catheterization should look and feel normal in color, sensation, and temperature. If your hand or fingers become cool, pale, blue or change color contact your doctor. If you are having numbness or tingling in your fingers or hand contact your doctor. If you feel faint or dizzy, lie down with your feet elevated. Have someone call the doctor. If you are alert, drink fluids. How to Deal with Chest Pain If you had only the cardiac catheterization, treat any angina or chest discomfort as instructed. Stop what you are doing, and sit or lie down. If prescribed, take nitroglycerin under your tongue. If the angina isn't relieved, take another nitroglycerin in 5 minutes. After another 5 minutes, a third nitroglycerin may be taken. If the angina isn't improved you should call for an ambulance to bring you to the nearest hospital emergency room. If your angina is more frequent or severe than before, contact your doctor. We usually would not expect you to have angina after an angioplasty. If you do get angina, treat itas you did before, but also contact your doctor. Return to Work The doctor will usually have told you when to return to work. If you do not perform heavy physical labor, most people can return to work in a few days. Diet Follow your previous diet unless otherwise instructed. Cardiac Risk Factor If you have coronary artery disease, it is important that you help control it by reducing your cardiac risk factors. If you smoke, we urge you to stop now. If you think this is going to be a problem,let us know so that we may help you. We have dieticians who can help you learn about a low fat, lowcholesterol diet. Cardiac rehabilitation programs can help you set up a regular exercise program. Work with your doctor if you have high blood pressure or sugar diabetes to keep these under control. Medications Take your usual medications medication changes If you are taking medications prescribed by your doctor, do not take any kgux-wjn-yorsmmg medicinesor herbal preparations without first discussing this with your doctor or pharmacist. There is the possibility of side effects and interactions when these are combined. Follow Up Care Who to call with questions or problems If there are any questions or problems that you think might be related to your cardiac cath or angioplasty, contact the milk house worker shoe salesperson by calling [facility] at . * Patient Instructions* Samia Kurtz MD - 04/19/2018 2:47 PM EST Cardiology Instructions Call your doctor if: Chest pain, dyspnea, pain or swelling in legs occurs. If you have non-emergent questions between now and the time of your follow up appointments: -During 8am-5pm Thursday through Thursday call [phone] to speak with a nurse in the cardiology clinic -All other times call [phone] and ask to speak to the film sound engineer shoe salesperson. MEDICATIONS - restart your metformin on - you need to be on daily Plavix for at least 1 year and aspirin for lifetime to help prevent clotsforming inside of your stent. - keep nitroglycerin with you at all times, if you have chest pain, can take 1 tablet under your tongue every 5 minutes up to 3 tablets. If your pain does not resolve you need to call 911. Return to work/ usual actvities: 1 week, as tolerated. 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 Driving: No driving for 48 hours after catheterization. Follow up Appointments: Primary care provider: Cardiology: ZANE Ulloa [phone] Follow up as planned or as needed. Dr. Linwood Sanchez Call for a follow up appointment in about 4 weeks. documented in this encounter Medications at Time of Discharge Medication Sig Dispensed Refills Start Date End Date chlorthalidone (HYGROTEN) 50 mg Tablet TAKE ONE [...] x 5/8 NeedleIndications:Prol actinoma 1 Units by [facility].(Non-Drug; Combo Route) route every 7 days. 30 each 1 04/27/2017 Needle, Disp, 22 G 22 gauge x 1 Needle 1 each by [facility].(Non-Drug; Combo Route) route every 14 days. 6 each 3 04/01/2017 Syringe, Disposable, 1 mL Syringe 1 each by [facility].(Non-Drug; Combo Route) route every 14 days. Must be luer-shayla 12 Syringe 3 12/11/2016 DEXILANT 60 mg [...] capsule Take 400 mg by mouth daily. LATUDA 60 mg Tablet TAKE ONE TABLET [...] DOSE IS 200MG DAILY 1 12/02/2017 08/22/2019 testosterone cypionate (DEPOTESTOSTERONE CYPIONATE) 200 mg/mL Oil INJECT 0.4 ML INTO THE MUSCLE ONCE EVERY 7 DAYS 10 mL 11/06/2017 04/20/2018 cetirizine (ZYRTEC) 10 mg Tablet Take 10 mg by mouth daily. 09/06/2018 syringe with needle, disposable, 3 mL 22 gauge x 1 SyringeIndications:Pro lactinoma 1 Syringe by [facility].(Non-Drug; Combo Route) route once a week. 30 Syringe 5 04/27/2017 05/05/2018 cabergoline (DOSTINEX) 0.5 mg Tablet Take 0.5 tablets by mouth twice a week. 32 tablet 4 01/31/2016 11/23/2020 methylphenidate (RITALIN) 10 mg Tablet Take 10 mg by mouth 3 times daily. 0 01/18/2016 08/22/2019 citalopram (CELEXA) 40 mg tablet 08/03/2003 11/23/2020 documented as of this encounter Progress Notes * Karmen Chapa RN - 04/19/2018 5:03 PM EST Patient alert and oriented, vital signs stable. Reviewed discharge instructions; patient and friendverbalized understanding. Copy of instruction sheet with contact numbers for questions/concerns. Pain assessment documented. Patient escorted out of department via wheelchair with friend. documented in this encounter H&P Notes * Samia Kurtz MD - 04/19/2018 10:55 AM EST Images from the original note were not included. Patient Name: Darvin Sanz Patient Age: 47 y.o. Birthdate: 1970 Admit date: 04/19/2018 Attending Physician: Andres Mccall MD Pre Cardiac Catheterization Note 47 y.o. male presents for left heart catheterization for atypical chest pain and a positive stress test. He has been having chest pains for least months, but he is not sure exactly how long. It is a sharp pain, 8/10 and often lasts as long as 30 minutes. He had to take nitro for this pain three times in the last week. Sometimes it happens with activity, but it happened twice this week while watchi [employer] TV. He feels warm when it occurs, but no shortness of breath at the time of discomfort. He does get short of breath with activity which he attributes to being a former smoker (quit 7 months ago). He says sometimes he can get up a flight of stairs, but not always it depends on how much he walked before getting to the stairs. He has hypertension and hyperlipidemia, but denies diabetes. He thinkshis father had coronary artery disease. No planned upcoming surgeries. History of GI bleeding and ulcer. He thinks he still has an ulcer. Had has not had to have a blood transfusion for this. He took aspirin 81 mg last night. He thinks he took his diltiazem today. BP (!) 171/104 (BP Location (NBP): Right arm) Comment (BP Location (NBP)): R wrist Pulse 71 Temp 36.6 ??C (97.9 ??F) (Temporal) Resp 18 Wt (!) 203.7 kg (449 lb) SpO2 94% BMI 64.42 kg/m?? Gen: Pleasant male in no apparent distress, able to lay flat Cor: Regular rate and rhythm; S1/S2 of normal character and amplitude, no murmurs, rubs or gallops.JVP are not elevated distant Pulm: Clear and equal to auscultation bilaterally, but decreased mildly in all lung stone Ext: Bilateral Richard's Test normal (both the radial and ulnar arteries alone provide ample circulation to the hand arcade). Femoral arteries are with adequate upstroke, but faint to palpation. DP ++/PT + Neuro: Awake, alert, answers questions appropriately. No facial droop. ASA: 3: Patient with severe systemic disease Mallampati: II: tonsillar pillars are blocked by the tongue Previous Catheterization: None The indications, expected benefits, and potential risks of heart catheterization were reviewed in detail with the patient. The potential for , heart attack, stroke, kidney failure, hemorrhage, allergic reaction, vascular complications and infection were reviewed in detail. The possibility of stenting and other percutaneous intervention, with associated risk, was reviewed. The possible need for emergent coronary artery bypass surgery was reviewed. Alternatives were discussed and the patient's questions were answered in full. Following this discussion, the patient consented to the procedure and signed a form attesting to this, which is in the chart. Plan: Coronary Angio via right radial artery No C/I to long-term DAPT Moderate Sedation SANJANA Kurtz MD 04/19/2018 documented in this encounter Miscellaneous Notes * Op Note - Andres Mccall MD - 04/19/2018 2:15 PM EST [facility] Operative Note Patient Name: Darvin ALBRECHT: [id number] MR#: [id number] Case Date: 04/19/2018 Surgeon: Surgeon(s) and Role: * Andres Mccall MD - Primary * Samia Kurtz MD - Fellow-Interventional * Alcides Ivory PA - Physician Crew Caller Preoperative diagnosis: Cardiomyopathy, unspecified type [I42.9]/Abnormal stress test [R94.39] Postoperative diagnosis: No obstructive CAD, LVEDP 20 mmHg (OCT performed) Procedure(s) (LRB): CARDIAC CATHETERIZATION (N/A) Access: Radial provided good support for procedure. 6 Fr RRA with TR band in place, good hemostasis. The patient tolerated the procedures smoothly and was transferred from the cardiac catheterization lab to the next level of care in stable condition, without pain. No evident early complications. A call is out to referring milk house worker and the fellow discussed with the patient and their family. A time-out was conducted prior to the start of the procedure to verify the correct patient and procedure, procedure location, and all relevant critical information. Full report to follow. ANDRES MCCALL MD Definitions from [place] Study of Health and Aging Clinical Frailty Scale: 1: VERY FIT: energetic, exercising regularly 2: WELL: no active disease symptoms, exercising occasionally or seasonally 3: MANAGING WELL: well-controlled medical problems, no exercise more than routine walking 4: VULNERABLE: symptoms limit activities, though not dependent on others for daily help. Often complain for being slowed up or tired 5: MILDLY FRAIL: more evidently impaired, needing help with high order ADLs such as finances, transportation, heavy housework, medications, walking outside, meal preparation 6: MODERATELY FRAIL: requiring help with all outside activities and with minor infrastructure manager. May need help with bathing and dressing. 7: SEVERELY FRAIL: completely dependent for personal care, but stable and not at high risk of dyingwithin 6 months 8: VERY SEVERELY FRAIL: completely dependent, approaching end of life. Not likely to recover from even minor added illness 9: TERMINALLY ILL: Life expectancy of less than 6 months, even if not otherwise frail documented in this encounter Plan of Treatment Scheduled Orders Name Type Priority Associated Diagnoses Orde r Schedule EKG 12 Lead ECG Routine Cardiomyopathy, unspecified type Abnormal stress test One Time for 1 Occurrences starting 04/19/2018 until 04/19/2018 documented as of this encounter Procedures Procedure Name Priority Date/Time Associated Diagnosis Comments PROLACTIN Routine 04/19/2018 10:55 AM EST Prolactinoma TESTOSTERONE, TOTAL Routine 04/19/2018 1 0:55 AM EST Prolactinoma documented in this encounter Results * (ABNORMAL) Prolactin (04/19/2018 10:55 AM EST) Prolactin 64.8(H) 4.0 - 15.2 ng/mL [facility] Blood specimen (specimen) 04/19/2018 10:55 AM EST 04/19/2018 11:41 AM EST Narrative Resulting Agency Comment Spec In Lab Darvin Durand MD CHEMISTRY ORDERABLES [facility] [place] [address] * (ABNORMAL) Testosterone, total (04/19/2018 10:55 AM EST) Testosterone 1.48(L) 2.49 - 8.36 ng/mL [facility] Comment: Pediatric Reference Ranges: [...] Stated reference ranges derived from review of Glycobia Kyung Testosterone II 10/2015, v6.0 Blood specimen (specimen) 04/19/2018 10:55 AM EST 04/19/2018 11:41 AM EST Narrative Resulting Agency Comment Spec In Lab Darvin Durand MD CHEMISTRY ORDERABLES [facility] [place] [address] documented in this encounter Visit Diagnoses Diagnosis 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) Cardiomyopathy, unspecified type Abnormal stress test Other nonspecific abnormal cardiovascular system function study documented in this encounter Administered Medications Inactive Administered Medications - up to 3 most recent administrations Medication Order MAR Action Action Date Dose Rate Site sodium chloride 0.9% infusion 50 mL/hr, Intravenous, CONTINUOUS, Starting on Thu04/19/18 at 1100, Until Thu04/19/18 at 1159, Cath (Day of Procedure) New Bag 04/19/2018 10:58 AM EST 50 mL/hr 50 mL/hr sodium chloride 0.9% infusion 100 mL/hr, Intravenous, CONTINUOUS, Starting on Thu04/19/18 at 1515, Until Thu04/19/18 at 1714, Recovery (Recovery-Hospital Unit) New Bag 04/19/2018 3:00 PM EST 100 mL/hr 100 mL /hr documented in this encounter Active and Recently Administered Medications Times are shown in EST. Continuous Medication Order 04/17/2018 04/18/2018 04/19/2018 sodium chloride 0.9% infusion (CANCELED) 50 mL/hr, Intravenous, CONTINUOUS, Starting on Thu04/19/18 at 1100, Until Thu04/19/18 at 1159, Cath (Day of Procedure) 1058 (New Bag - Prov ider: Jaci Tamez RN - Comment: KVO) sodium chloride 0.9% infusion 100 mL/hr, Intravenous, CONTINUOUS, Starting on Thu04/19/18 at 1515, Until Thu04/19/18 at 1714, Recovery (Recovery-Hospital Unit) 1500 (New Bag - Prov ider: Chani Sarkar RN) PRN Medication Order 04/17/2018 04/18/2018 04/19/2018 fentaNYL 50 mcg/mL multi-dose injection (CANCELED) ONCE PRN, Starting on Thu04/19/18 at 1242, Until Thu04/19/18 at 1702, Intra-Operative (Intra-Procedure), Routine 1241 (Given - Provid er: Edwige Styles RN)1242 (Given - Provider: Edwige Styles RN)1252 (Given - Provider: Edwige Styles RN)1331 (Given - Provider: Beti Hughes, RANDOLPH) heparin (porcine) injection (CANCELED) ONCE PRN, Starting on Thu04/19/18 at 1255, Until Thu04/19/18 at 1418, Cath (Intra-Procedure), Routine 1255 (Given - Provid er: Edwige Styles RN)1334 (Given - Provider: Beti Hughes RN) midazolam (PF) (VERSED) multi-dose injection (CANCELED) ONCE PRN, Starting on Thu04/19/18 at 1242, Until Thu04/19/18 at 1418, Cath (Intra-Procedure), Routine 1241 (Given - Provid er: Edwige Styles RN)1242 (Given - Provider: Edwige Styles, RANDOLPH)1252 (Given - Provider: Edwige Styles, RANDOLPH) nitroGLYcerin 100 mcg/mL intracoronary dilution (CANCELED) ONCE PRN, Starting on Thu04/19/18 at 1252, Until Thu04/19/18 at 1418, Cath (Intra-Procedure), Routine 1252 (Given - Provid er: Samia Kurtz MD) verapamil (ISOPTIN) injection (CANCELED) ONCE PRN, Starting on Thu04/19/18 at 1252, Until Thu04/19/18 at 1418, Administer over 2 Minutes, Cath (Intra-Procedure) 1252 (Given - Provid er: Samia Kurtz MD) documented in this encounter Care Teams Human Resources Receptionist Relationship Specialty Start Date End Date Татьяна Koehler PA [address] [place] [address] PCP - General 04/12/13 10/11/19 documented as of this encounter
--- OUTSIDE RECORDS SUMMARY | 2023-10-07 20:53 | XMS_ITS | Encounter Summary ---
Author Organization Formerly [facility] [place] [address] Care Team Providers Care Independent Freight Agent Name Role Phone Татьяна Koehler Primary Care Provider +1- [phone] Encounter Details Date Type Department Care Team (Latest Contact Info) Description 05/05/2016 1:00 PM EDT Laboratory Appointment Lab 3L [facility] [place] [address] Hypogonadism in male Social History Tobacco Use Types Packs/Day [...] Priority Date/Time Associated Diagnosis Comments PROLACTIN Routine 05/05/2016 1:01 PM EDT Hypogonadism in male TESTOSTERONE, TOTAL Routine 05/05/2016 1 :01 PM EDT Hypogonadism in male documented in this encounter Results * (ABNORMAL) Testosterone, total (05/05/2016 1:01 PM EDT) Testosterone 2.15(L) 2.80 - 8.00 ng/mL [facility] Comment: Reference Ranges: ? Males (7to18 years) ?Females (8-18 years) Domenic Stage ?ng/ml ? ng/ml ? 1 ? <0.03 ? <0.03 to 0.06 ? 2 ? <0.03 to 4.32 ? <0.03 to 0.10 ? 3 ? 0.65 to 7.78 ?<0.03 to 0.24 ? 4 ? 1.80 to 7.63 ?<0.03 to 0.27 ? 5 ? 1.88 to 8.82 ?<0.05 to 0.38 ?Males 18 years to adult ? Females 18 years to adult ? 2.80 to 8.00 ng/ml ?0.06 to 0.82 ng/ml Stated adult reference ranges derived from review of Lilly E170 Testosterone reagent package insert 12/28, V8 Stated pediatric reference ranges derived from review of Lilly E170 Testosterone II reagent package insert 09/01, V2. Blood specimen (specimen) 05/05/2016 1:01 PM EDT 05/05/2016 1:06 PM EDT Narrative Resulting Agency Comment Spec In Lab Darvin Durand MD CHEMISTRY ORDERABLES Performing Organization Address City/[facility]/ZIP Co de Phone Number [facility] [place] [address] * Prolactin (05/05/2016 1:01 PM EDT) Prolactin 7.8 4.0 - 15.2 ng/mL [facility] Blood specimen (specimen) 05/05/2016 1:01 PM EDT 05/05/2016 1:06 PM EDT Narrative Resulting Agency Comment Spec In Lab Darvin Durand MD CHEMISTRY ORDERABLES Performing Organization Address [facility] Co de Phone Number [facility] [place] [address] documented in this encounter Visit Diagnoses Diagnosis Hypogonadism in male documented in this encounter Care Teams Independent Freight Agent Relationship Specialty Start Date End Date Татьяна Koehler PA [address] [place] [address] PCP - General 04/12/13 10/11/19 documented as of this encounter
--- OUTSIDE RECORDS SUMMARY | 2023-10-07 20:53 | XMS_ITS | Encounter Summary ---
Author Organization [facility] [place] [address] Care Team Providers Care Assembler Brazer Name Role Phone Татьяна Koehler Primary Care Provider +1- [phone] Reason for Visit * Reason Onset Date Comments Labs Only 11/16/2014 Encounter Details Date Type Department Care Team ([facility] st Contact Info) Description 11/16/2014 Telephone [place] [phone] Marisa Prince, RANDOLPH Labs Only Social History Tobacco Use Types Packs/Day Years [...] encounter Miscellaneous Notes * Telephone Encounter - Marisa Prince RN - 11/16/2014 9:10 AM EDT Pt requested his labwork be sent to [facility] for a blood draw prior to his appointment with Dr. Durand on 11/27/2014. Lab orders faxed to [facility] lab. Unable to reach patient to let him know that this was completed. documented in this encounter Plan of Treatment Not on file documented as of this encounter Visit Diagnoses Not on filedocumented in this encounter Care Teams Assembler Brazer Relationship Specialty Start Date End Date Татьяна Koehler PA [address] [place], [place] [id number] PCP - General 04/12/13 10/11/19 documented as of this encounter
--- OUTSIDE RECORDS SUMMARY | 2023-10-07 20:53 | XMS_ITS | Encounter Summary ---
[place] [address] Care Team Providers Care Tool Dresser Name Role Phone Татьяна Koehler Primary Care Provider +1- [phone] Encounter Details Date Type Department Care Team ([facility] st Contact Info) Description 03/10/2016 Orders [place] [address] Darvin Durand MD [facility] [place] [address] Social History Tobacco Use Types Packs/Day Years [...] on filedocumented in this encounter Care Teams Tool Dresser Relationship Specialty Start Date End Date Татьяна Koehler PA [address] [place] [address] PCP - General 04/12/13 10/11/19 documented as of this encounter
--- OUTSIDE RECORDS SUMMARY | 2023-10-07 20:53 | XMS_ITS | Encounter Summary ---
Author Organization [facility] [place] [address] Care Team Providers Care Set Up Operator Name Role Phone Татьяна Koehler Primary Care Provider +1- [phone] Encounter Details Date Type Department Care Team (Late st Contact Info) Description 03/12/2016 Telephone [place] [phone] Lucero Montanez LPN Social History Tobacco Use Types Packs/Day Years [...] encounter Miscellaneous Notes * Telephone Encounter - Lucero Montanez LPN - 03/12/2016 11:16 AM EST R/c to patient Rx for Androderm was to go to [place] in [facility] not RA in [place]. Rx faxed to [facility] in [facility]. Confirmation on fax received. Nurse called [facility] in [facility] spoke with Elana who agrees to delete Rx. documented in this encounter Plan of Treatment Not on file documented as of this encounter Visit Diagnoses Not on filedocumented in this encounter Care Teams Set Up Operator Relationship Specialty Start Date End Date Татьяна Koehler PA [address] [place] [address] PCP - General 04/12/13 10/11/19 documented as of this encounter
--- OUTSIDE RECORDS SUMMARY | 2023-10-07 20:53 | XMS_ITS | Encounter Summary ---
Author Organization Formerly [facility] [place] [address] Care Team Providers Care Completion Manager Name Role Phone Татьяна Koehler Primary Care Provider +1- [phone] Reason for Visit * Reason Comments Hypogonadism Encounter Details Date Type Department Care Team (Late st Contact Info) Description 07/28/2014 10:30 AM EDT Office Visit [place] [address] Sola Amaya MD [facility] [place] [address] Vitamin D deficiency; Fatigue; Urinary frequency ; Hypogonadism in male; Vitamin D deficiency Discharge Disposition: Home Social History Tobacco Use [...] Sign Reading Time Taken Comments Blood Pressure 180/94 07/28/2014 11:07 AM EDT Pulse 76 07/28/2014 11:07 AM EDT Temperature - - Respiratory Rate - - Oxygen Saturation - - Inhaled Oxygen Concentration - - Weight 186.3 kg (410 lb 12.8 oz) 2014 11:07 AM EDT Height 177.8 cm (5' 10) 07/28/2014 11: 07 AM EDT Body Mass Index 58.94 07/28/2014 11:07 AM EDT documented in this encounter Progress Notes * Gaetano Deng MD - 08/06/2014 10:45 AM EDT I saw this patient with Dr Amaya . I reviewed the miller portions of the history and physical exam, and reviewed pertinent lab data. I answered all patient questions. I was involved in all medical decision making and agree with this plan. * Sola Amaya MD - 07/28/2014 10:57 AM EDT Endocrine Clinic Name: Darvin Sanz : 1970 PCP: ZANE LAKHANI Date: 07/28/2014 Reason for visit: Endocrine visit for the following problem list: Patient Active Problem List Diagnosis Code ??? Hypogonadism male 257.2 ??? Pre-diabetes 790.29 ??? Hyperprolactinemia 253.1 ??? Obesity 278.00 ??? HTN (hypertension) 401.9 ??? Dyslipidemia 272.4 ??? GERD (gastroesophageal reflux disease) 530.81 ??? Anxiety 300.00 ??? Depression 311 ??? JOSE DE JESUS (obstructive sleep apnea) 327.23 ??? Galactorrhea 611.6 ??? Tobacco user 305.1 ??? ED (erectile dysfunction) 607.84 ??? Decreased libido 799.81 ??? Fatigue 780.79 ??? CORDERO (headache) 784.0 ??? 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 year old male who presents for evaluation of hypogonadism diagnosed about 10-12 yrs ago with very low testosterone of 43 per patient. He used to take testosterone injections, and androgel for about a year and stopped as he thought that it's not working. Also tried Dostinex for 6 months in the past for some breast discharge (not galactorrhea per pt) but it did not help his testosterone levels either. He is symptomatic with fatigue, wt gain with more fat but less muscle mass, ED, low libido and depression. MRI scan of the pituitary on 09/20/10 was negative. Patient has seen several providers in Endocrinology in the past and he has not followed the recommendations that were made. Patient is not doing well during the interim and missed follow up visits several times. He did not start the cabergoline that was recommended. He remains symptomatic with severe hypogonadism. He feels tired with ED and low libido as before. No palpitations, CP, SOB, GI issues, changes of skin or hairs and no heat or cold intolerance. +Migraine like CORDERO but no visual changes. He has depression and sees a psychiatrist. Fatigue, gained 9 lbs since last visit. No fractures No nipple discharge but some whitish discharge after itching upon expression since his teenage years Lost Muscle mass, more belly fat Outside lab with PCP : 04/08/13 Testosterone 20 L Free Testosterone 0.3 L TSH 0.86 03/21/13 HbA1c 5.8% TC 173, LDL 133, TG 98, low HDL 25 FBG 94 Cr 1.0, LFT-ve Urine microalbumin/Cr -ve ROS: Please see HPI, all others negative Patient Active Problem List Diagnosis Code ??? Hypogonadism male 257.2 ??? Pre-diabetes 790.29 ??? Hyperprolactinemia 253.1 ??? Obesity 278.00 ??? HTN (hypertension) 401.9 ??? Dyslipidemia 272.4 ??? GERD (gastroesophageal reflux disease) 530.81 ??? Anxiety 300.00 ??? Depression 311 ??? JOSE DE JESUS (obstructive sleep apnea) 327.23 ??? Galactorrhea 611.6 ??? Tobacco user 305.1 ??? ED (erectile dysfunction) 607.84 ??? Decreased libido 799.81 ??? Fatigue 780.79 ??? CORDERO (headache) 784.0 ??? 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 celecoxib (CELEBREX) 400 mg capsule Take 400 mg by mouth daily. ??? methylphenidate (RITALIN) 20 mg tablet Take 20 mg by mouth 3 times daily. ??? DILTiazem (CARDIZEM CD) 180 mg 24 hr capsule Take 360 mg by mouth daily. ??? meloxicam (MOBIC) 15 mg tablet Take 15 mg by mouth 2 times daily. ??? metFORMIN (GLUCOPHAGE-XR) 500 mg 24 hr tablet Take 1-3 tablets by mouth daily. (Patient taking differently: Take 1,000 mg by mouth daily.) 270 tablet 3 ??? lisinopril (PRINIVIL;ZESTRIL) 10 mg tablet take 1 tablet by mouth once daily 90 tablet 0 ??? atenolol (TENORMIN) 100 mg tablet take 1 tablet by mouth once daily 90 tablet 3 ??? esomeprazole (NEXIUM) 20 mg capsule Take 20 mg by mouth every morning (before breakfast). ??? hydrochlorothiazide (HYDRODIURIL) 25 mg tablet Take 25 mg by mouth daily. Unsure of dose ??? citalopram (CELEXA) 40 mg tablet ??? furosemide (LASIX) 40 mg tablet Take 60 mg by mouth daily. ??? cyclobenzaprine (FLEXERIL) 10 mg tablet Take 10 mg by mouth 2 times daily as needed. ??? HYDROcodone-acetaminophen 5-325 mg per tablet Take 2 tablets by mouth every 6 hours as needed. No current facility-administered medications on file prior to visit. vicodin No Known Allergies History Social History ??? Marital Status: Spouse Name: N/A Number of Children: 6 ??? Years of Education: N/A Occupational History ??? disabled Social History Main Topics ??? Smoking status: Current Every Day Smoker -- 1.50 packs/day Types: Cigarettes ??? Smokeless tobacco: Never Used ??? Alcohol Use: No ??? Drug Use: No ??? Sexual Activity: Partners: Female Other Topics Concern ??? None Social History Narrative FAMILY HISTORY Family History Problem Relation Age of Onset ??? Coronary Artery Disease Mother ??? Obesity Mother ??? Heart Disease Mother ??? High Blood Pressure Father ??? Obesity Father ??? Cancer Father ??? Diabetes Maternal Aunt ??? Thyroid Disease Maternal Aunt Physical exam BP 180/94 Pulse 76 Ht 177.8 cm (5' 10) Wt 186.338 kg (410 lb 12.8 oz) BMI 58.94 kg/m2 Appearance: very obese, pleasant, M HEENT: s/p left eye enucleation, EOM full on right Neck: supple, no goiter Chest: CTA bilaterally Heart: normal S1, S2 Abd: benign, ND, NT Ext: normal skin texture and temperature no edema Neuro: no weakness, normal reflexes Labs Ref. Range 12/23/2010 12:17 07/01/2013 15:29 Sodium Latest Range: 135-145 mmol/L 136 139 Potassium Latest Range: 3.5-5.0 mmol/L 3.3 (L) 4.3 Chloride Latest Range: 98-107 mmol/L 97 (L) 104 CO2 Latest Range: 22-31 mmol/L 27 25 Anion Gap Latest Range: 5-15 mmol/L 12 10 BUN Latest Range: 10-20 mg/dL 11 14 Creatinine Latest Range: 0.80-1.50 mg/dL 0.75 (L) 0.92 Estimated GFR Latest Range: >=60 >60 >60 Glucose Lvl Latest Range: 60-199 mg/dL 137 95 Calcium Latest Range: 8.5-10.5 mg/dL 9.1 9.1 Hemoglobin A1C Latest Range: <=5.6 % 5.9 5.7 (H) Est Avg Gluc No range found 123 117 Total Protein Latest Range: 6.1-8.0 gm/dL 7.4 7.2 Albumin Latest Range: 3.2-5.2 gm/dL 4.0 4.1 Total Bilirubin Latest Range: 0.2-1.3 mg/dL 0.3 0.3 Bili, Direct Latest Range: 0.0-0.3 mg/dL 0.1 0.1 Alk Phos Latest Range: 40-120 unit/L 91 86 AST Latest Range: 0-39 unit/L 26 18 ALT Latest Range: 0-55 unit/L 49 24 25-Hydroxy D2 No range found <4.0 25-Hydroxy D3 No range found 18 25-OH Vit D Total Latest Range: 30-100 ng/mL 18 (L) 14 (L) Chol, Total Latest Range: <=199 mg/dL 178 HDL Latest Range: >=40 mg/dL 35 (L) Chol/HDL Ratio No range found 5.1 Triglycerides Latest Range: <=149 mg/dL 152 (H) LDL Cholesterol Latest Range: <=99 mg/dL 113 (H) PSA Total Latest Range: 0.00-4.00 ng/mL 0.31 0.24 Free T4 Latest Range: 0.90-1.60 ng/dL 1.00 1.18 TSH Latest Range: 0.27-4.20 mcIU/mL 1.58 FSH Latest Range: 1.5-12.4 mlU/ML 0.7 (L) LH Latest Range: 1.7-8.6 mlU/ML 0.8 (L) Prolactin Latest Range: 4.0-15.2 ng/mL 72.8 (H) 99.6 (H) Cortisol No range found 7.4 SOMC 1 Latest Range: 121-237 ng/mL 75 (L) Testo Total Latest Range: 250-1100 ng/dL 34 (L) 20 (L) Testo Free Latest Range: 35.0-155.0 pg/mL 5.4 (L) 2.0 (L) ACTH Latest Range: 7-50 pg/mL 44 Assessment/Plan: Darvin Sanz is a 43 year old male with longstanding hypogonadism for almost 15 now years due to central cause and elevated RI of 99 on 07/01/13. MRI scan of the pituitary was normal on 09/20/10 . He used to take testosterone injections, and androgel for 1 year and quit it as it was ineffective for him. Also tried Dostinex for 6 months in the past for some breast discharge (not galactorrhea per pt) but it did not help his testosterone levels. He is symptomatic with fatigue, wt gain with more fat but less muscle mass, ED, low libido and depression. He has JOSE DE JESUS and is not on CPAP and FH of prostate cancer. Will measure his prolactin, Testosterone and PSA today. If prolactin is elevated, will start the patient on cabergoline and repeat labs in 1-2 months to see if his testosterone levels improve with normalization of prolactin levels.If not, we will start patient on testosterone as well. With such lowlevels we also worry about his bone health since he has not been on any replacement for a long timenow. He also has vitamin D deficiency, will repeat levels today and replace with 50,000 IU weekly if indicated. Patient says his HbA1C was normal recently and he is not interested in metformin. Patient will continue all other medications, low fat/controlled carb diet and execise regularly as tolerated to keep weight down or at least stable Patient seen and examined, case discussed with Dr Deng. Prolactin and testosterone to be repeated locally in 1 to 2 months of starting treatment and officevisit in 4 months. Sola Amaya MD Endocrinology fellow Pager [phone] documented in this encounter Plan of Treatment Not on file documented as of this encounter Procedures Procedure Name Priority Date/Time Associated Diagnosis Comments TESTOSTERONE, TOTAL AND FREE Routine 07/28/2014 12:03 PM EDT Hypogonadism in male VITAMIN D, 25-HYDROXY Routine 07/28/2014 12:03 PM EDT Vitamin D deficiency Hypogonadism in male PROLACTIN Routine 07/28/2014 12:03 PM EDT Hypogonadism in male TSH Routine 07/28/2014 12:03 PM EDT Fatigue PSA (ULTRASENSITIVE) Routine 07/28/2014 12:03 PM EDT Urinary frequency Fatigue CALCIUM Routine 07/28/2014 12:03 PM EDT Hypogonadism in male HEPATIC FUNCTION PANEL Routine 07/28/2014 12:03 PM EDT Fatigue documented in this encounter Results * Calcium (07/28/2014 12:03 PM EDT) Calcium 9.0 8.5 - 10.5 mg/dL [facility] Blood specimen (specimen) 07/28/2014 12:03 PM EDT 07/28/2014 12:12 PM EDT Narrative Resulting Agency Comment Spec In Lab Evelia Wray MD CHEMISTRY ORDERAB LES [facility] * (ABNORMAL) VIT D Total Evaluation (07/28/2014 12:03 PM EDT) Vitamin D Total 25 OH 27(L) 30 - 100 ng/mL [facility] Comment: Deficient <10 ng/mL Insufficient 10 to 29 ng/mL Sufficient 30 to 100 ng/mL Potential Intoxication >100 ng/mL According to the [place] National Osteoporosis Foundation, Vitamin D concentrations >30 ng/mL are sufficient to protect bone health. ??The National Kidney Foundation has similarly stated that patients with Vitamin D concentrations <30ng/mL should be considered to be insufficient or deficient. http://IndyGeek/DHMCnatlkidneyfoundation http://IndyGeek/DHVitD The [employer] i[employer] Vitamin D Immunoassay detects both 25-OH Vitamin D2 and 25-OH Vitamin D3, but only a total Vitamin D concentration is reported. Blood specimen (specimen) 07/28/2014 12:03 PM EDT 07/28/2014 12:12 PM EDT Narrative Resulting Agency Comment Spec In Lab Evelia Wray MD CHEMISTRY ORDERAB LES Performing Organization Address [facility]/ZIP Co de Phone Number [facility] * (ABNORMAL) Testosterone, total and free (07/28/2014 12:03 PM EDT) Testo Total 27(L) 250 - 1100 ng/dL [facility] Comment: For more information on this test, go to http://education.Crave.com/faq/ TotalTestosteroneLCMSMS Testo Free (JUNE) 4.0(L) 35.0 - 155.0 pg/mL [facility] Comment: Test Performed by [employer], [address] [place] [address] Juan Morfin M.D., Ph.D., Director of Laboratories , [facility] [id number] Blood specimen (specimen) 07/28/2014 12:03 PM EDT 07/28/2014 1:17 PM EDT Narrative Resulting Agency Comment Spec In Lab Evelia Wray MD LAB SEND OUT ORDE RABLES Performing Organization Address [facility] Co de Phone Number [facility] * (ABNORMAL) Prolactin (07/28/2014 12:03 PM EDT) Prolactin 108.2(H) 4.0 - 15.2 ng/mL [facility] Blood specimen (specimen) 07/28/2014 12:03 PM EDT 07/28/2014 12:12 PM EDT Narrative Resulting Agency Comment Spec In Lab Evelia Wray MD CHEMISTRY ORDERAB LES Performing Organization Address [facility] Co de Phone Number [facility] * Hepatic Function Panel (07/28/2014 12:03 PM EDT) Protein, Total 7.3 6.1 - 8.0 gm/dL [facility] Albumin 4.0 3.2 - 5.2 gm/dL [facility] Aspartate Aminotransferase 20 0 - 39 unit/L [facility] Alanine Aminotransferase 30 0 - 55 unit/L [facility] Alkaline Phosphatase 83 40 - 120 unit/L [facility] Bilirubin, Total 0.4 0.2 - 1.3 mg/dL [facility] Bilirubin, Direct 0.1 0.0 - 0.3 mg/dL [facility] Blood specimen (specimen) 07/28/2014 12:03 PM EDT 07/28/2014 12:12 PM EDT Narrative Resulting Agency Comment Spec In Lab Gaetano Deng MD CHEMISTRY ORDERABLES Performing Organization Address [facility] Co de Phone Number [facility] * PSA (07/28/2014 12:03 PM EDT) Prostate Specific Antigen (Ultrasensitiv e) 0.18 0.00 - 4.00 ng/mL [facility] Blood specimen (specimen) 07/28/2014 12:03 PM EDT 07/28/2014 12:12 PM EDT Narrative Resulting Agency Comment Spec In Lab Gaetano Deng MD CHEMISTRY ORDERABLES Performing Organization Address [facility] Co de Phone Number [facility] * TSH (07/28/2014 12:03 PM EDT) Thyroid Stimulating Hormone 2.15 0.27 - 4.20 mcIU/mL [facility] Blood specimen (specimen) 07/28/2014 12:03 PM EDT 07/28/2014 12:12 PM EDT Narrative Resulting Agency Comment Spec In Lab Evelia Wray MD CHEMISTRY ORDERAB LES [facility] documented in this encounter Visit Diagnoses Diagnosis Vitamin D deficiency Unspecified vitamin D deficiency Fatigue Other malaise and fatigue Urinary frequency Urinary frequency Hypogonadism in male documented in this encounter Care Teams Completion Manager Relationship Specialty Start Date End Date Татьяна Koehler PA [address] [place] [address] PCP - General 04/12/13 10/11/19 documented as of this encounter
--- OUTSIDE RECORDS SUMMARY | 2023-10-07 20:53 | XMS_ITS | Encounter Summary ---
Author Organization [facility] [place] [address] Care Team Providers Care Cd Manufacturing Supervisor Name Role Phone Татьяна Koehler Primary Care Provider +1- [phone] Reason for Visit * Reason Onset Date Comments Medication Refill 03/31/2017 Encounter Details Date Type Department Care Team (Late st Contact Info) Description 03/31/2017 Refill [place] [address] Darvin Durand MD [facility] [address] Social History Tobacco Use Types Packs/Day Years [...] Telephone Encounter - Lucero Montanez LPN - 03/31/2017 4:20 PM EST Call from patient asking for needles to go with 1 ml syringe and for a call back with appointment date and time. Number left by patient and 2 number in edh were incorrect or not in service documented in this encounter Plan of Treatment Not on file documented as of this encounter Visit Diagnoses Not on filedocumented in this encounter Care Teams Cd Manufacturing Supervisor Relationship Specialty Start Date End Date Татьяна Koehler PA [address] [place] [address] PCP - General 04/12/13 10/11/19 documented as of this encounter
--- OUTSIDE RECORDS SUMMARY | 2023-10-07 20:53 | XMS_ITS | Encounter Summary ---
Author Organization [facility] [place] [address] Care Team Providers Care Ground Support Equipment Mechanic Name Role Phone Татьяна Koehler Primary Care Provider +1- [phone] Encounter Details Date Type Department Care Team ([facility] Contact Info) Description 08/13/2017 Notes Only [facility] [place] [address] Keeley Milner LPN Social History Tobacco Use Types Packs/Day [...] as of this encounter Progress Notes * Keeley Milner LPN - 08/13/2017 7:55 AM EDT Request for Coverage of a Non-Formulary Drug (Testosterone Cypionate 200 mg/ml) filled out by Dr Durand[facility] . Confirmation received @ [phone] & [phone] yesterday. documented in this encounter Plan of Treatment Not on file documented as of this encounter Visit Diagnoses Not on filedocumented in this encounter Care Teams Ground Support Equipment Mechanic Relationship Specialty Start Date End Date Татьяна Koehler PA [address] [place], [place] [address] PCP - General 2/18/14 8/18/20 documented as of this encounter
--- OUTSIDE RECORDS SUMMARY | 2023-10-07 20:53 | XMS_ITS | Encounter Summary ---
[place] [address] Care Team Providers Care Switchboard Clerk Name Role Phone Татьяна Koehler Primary Care Provider +1- [phone] Reason for Visit * Reason Comments Medication Refill Encounter Details Date Type Department Care Team (Late st Contact Info) Description 09/08/2014 [place] [address] Sola Amaya MD [facility] [place] [address] Social History Tobacco Use Types Packs/Day Years [...] encounter Miscellaneous Notes * Telephone Encounter - Amanda Blanc RN - 09/12/2014 10:08 AM EDT Darvin mcallister states he lost prescription from Dr. Amaya in transition to moving to [place]. Refill request received, will forward to . Has appointment to f/u in November. Last seen by Dr. Amaya and Dr. Deng. documented in this encounter Plan of Treatment Not on file documented as of this encounter Visit Diagnoses Not on filedocumented in this encounter Care Teams Switchboard Clerk Relationship Specialty Start Date End Date Татьяна Koehler PA [address] [place] [address] PCP - General 04/12/13 10/11/19 documented as of this encounter
--- OUTSIDE RECORDS SUMMARY | 2023-10-07 20:53 | XMS_ITS | Encounter Summary ---
[place] [address] Care Team Providers Care Non Destructive Testing Supervisor Name Role Phone Татьяна Koehler Primary Care Provider +1- [phone] Encounter Details Date Type Department Care Team ([facility] st Contact Info) Description 05/05/2016 Orders [place] [address] Darvin Durand MD [facility] [place] [address] Social History Tobacco Use Types Packs/Day Years [...] on filedocumented in this encounter Care Teams Non Destructive Testing Supervisor Relationship Specialty Start Date End Date Татьяна Koehler PA [address] [place] [address] PCP - General 04/12/13 10/11/19 documented as of this encounter
--- OUTSIDE RECORDS SUMMARY | 2023-10-07 20:53 | XMS_ITS | Encounter Summary ---
[place] [address] Care Team Providers Care Manager Environmental Name Role Phone Татьяна Koehler Primary Care Provider +1- [phone] Encounter Details Date Type Department Care Team ([facility] st Contact Info) Description 08/08/2014 Orders [place] [address] Sola Amaya MD [facility] [place] [address] Social History Tobacco Use Types Packs/Day Years [...] filedocumented in this encounter Care Teams Manager Environmental Relationship Specialty Start Date End Date Татьяна Koehler PA [address] [place] [address] PCP - General 04/12/13 10/11/19 documented as of this encounter
--- OUTSIDE RECORDS SUMMARY | 2023-10-07 20:53 | XMS_ITS | Encounter Summary ---
Author Organization [facility] [place] [address] Care Team Providers Care Lotteries Agent Name Role Phone Татьяна Koehler Primary Care Provider +1- [phone] Reason for Visit * Reason Onset Date Comments Medication Refill 10/30/2015 Encounter Details Date Type Department Care Team (Late st Contact Info) Description 10/30/2015 [place] [address] Darvin Durand MD [facility] [place] [address] Social History Tobacco Use Types Packs/Day Years [...] Telephone Encounter - Lucero Montanez LPN - 10/30/2015 11:10 AM EDT R/c to patient who is asking for Rx for Cabergoline. Patient was reminded of need to keep appointment on 01/31/16 as he has not been seen since 07/28/14. Patient states that he will come to this appointment documented in this encounter Plan of Treatment Not on file documented as of this encounter Visit Diagnoses Not on filedocumented in this encounter Care Teams Lotteries Agent Relationship Specialty Start Date End Date Татьяна Koehler PA [address] [place] [address] PCP - General 04/12/13 10/11/19 documented as of this encounter
--- OUTSIDE RECORDS SUMMARY | 2023-10-07 20:53 | XMS_ITS | Encounter Summary ---
[place] [address] Care Team Providers Care Machine Spreader Name Role Phone Татьяна Koehler Primary Care Provider +1- [phone] Reason for Visit * Reason Comments Medication Refill Encounter Details Date Type Department Care Team (Late st Contact Info) Description 11/03/2017 Ref[place] [address] Darvin Durand MD [facility] [place] [address] Social History Tobacco Use Types Packs/Day Years [...] on filedocumented in this encounter Care Teams Machine Spreader Relationship Specialty Start Date End Date Татьяна Koehler PA [address] [place] [address] PCP - General 04/12/13 10/11/19 documented as of this encounter
--- OUTSIDE RECORDS SUMMARY | 2023-10-07 20:53 | XMS_ITS | Encounter Summary ---
Author Organization [facility] [place] [address] Care Team Providers Care Putty Maker Name Role Phone Татьяна Koehler Primary Care Provider +1- [phone] Reason for Visit * Reason Onset Date Comments Medication Refill 12/11/2016 Encounter Details Date Type Department Care Team (Late st Contact Info) Description 12/11/2016 [place] [address] Darvin Durand MD [facility] [place] [address] Social History Tobacco Use Types Packs/Day Years [...] Telephone Encounter - Lucero Montanez LPN - 12/11/2016 9:36 AM EDT Patient asking for syringe that is easier to draw up 0.75 ml. Patient knows that he will need to use needle from 3 ml syringe that he already has at home. documented in this encounter Plan of Treatment Not on file documented as of this encounter Visit Diagnoses Not on filedocumented in this encounter Care Teams Putty Maker Relationship Specialty Start Date End Date Татьяна Koehler PA [address] [place] [address] PCP - General 04/12/13 10/11/19 documented as of this encounter
--- OUTSIDE RECORDS SUMMARY | 2023-10-07 20:53 | XMS_ITS | Encounter Summary ---
Author Organization [facility] [place] [address] Care Team Providers Care Enterprise Records Analyst Name Role Phone Татьяна Koehler Primary Care Provider +1- [phone] Reason for Visit * Reason Onset Date Comments Prior Authorization 03/13/2016 Encounter Details Date Type Department Care Team ([facility] st Contact Info) Description 03/13/2016 Telephone [place]ocrinology [place] [address] Indra Stack Prior Authorization Social History Tobacco Use Types [...] encounter Miscellaneous Notes * Telephone Encounter - Indra Matute - 03/13/2016 3:42 PM EST Medication Prior Authorization CHUCK Medication name/dose/directions: ANDRODERM) 4 mg/[address] 1 patch onto the skin daily. Rationale for request: HYPOGONADISM Health plan: [employer] Authorizing regional sales representative name: INDRA Faxed to health plan on: 03/13/16 Health plan decision: APPROVED Quantity approved: Authorization number: Start date: 12/15/15 End date: 03/14/17 Patient notified? yes Pharmacy notified? yes documented in this encounter Plan of Treatment Not on file documented as of this encounter Visit Diagnoses Not on filedocumented in this encounter Care Teams Enterprise Records Analyst Relationship Specialty Start Date End Date Татьяна Koehler PA [address] [place] [address] PCP - General 04/12/13 10/11/19 documented as of this encounter
--- OUTSIDE RECORDS SUMMARY | 2023-10-07 20:53 | XMS_ITS | Encounter Summary ---
Author Organization [facility], Located Within [facility] [place] [address] Care Team Providers Care Supervisor Gluing Name Role Phone Татьяна Koehler Primary Care Provider [phone]- [phone] Encounter Details Date Type Department [facility] Team [facility] Contact Info) Description 07/01/2013 2:30 PM EDT Office [place] [address] Liv Andino MD [facility] [place] [address] Hypogonadism male; Hyperprolactinemia; Prediabetes; Unspecified vitamin D deficiency; Urinary frequency Discharge Disposition: Home Social History Tobacco Use [...] Sign Reading Time Taken Comments Blood Pressure 103/57 07/01/2013 3:36 PM EDT Pulse 55 07/01/2013 3:36 PM EDT Temperature - - Respiratory Rate - - Oxygen Saturation - - Inhaled Oxygen Concentration - - Weight 182 kg (401 lb 3.2 oz) 07/01/2013 3:36 PM EDT Height - - Body Mass Index 57.57 12/23/2010 11:13 AM EDT documented in this encounter Patient Instructions * Patient Instructions* Liv Andino MD - 07/01/2013 3:55 PM EDT Recent Results (from the past 24 hour(s)) CBC (WITH DIFF) Component Value Range WBC 8.4 4.0 - 10.0 x10(3)/mcL RBC 5.07 4.63 - 6.08 x10(6)/mcL Hemoglobin 14.2 13.7 - 17.5 gm/dL Hematocrit 43.6 40.0 - 51.0 % MCV 86.0 79.0 - 92.0 fL MCH 28.0 25.6 - 32.2 pg MCHC 32.6 32.0 - 36.5 gm/dL Platelets 260 145 - 370 x10(3)/mcL RDWSD 46.7 (*) 35.0 - 46.0 fL RDWCV 15.0 (*) 10.9 - 14.4 % MPV 11.4 9.0 - 12.0 fL DIFFERENTIAL, AUTOMATED Component Value Range Neutrophils % 60.2 34.0 - 71.0 % Neutr Abs (ANC) 5.05 1.50 - 6.30 x10(3)/mcL Lymphocytes % 31.1 19.0 - 53.0 % Lymphocytes Abs 2.6 1.0 - 3.6 x10(3)/mcL Monocytes % 6.4 4.0 - 13.0 % Monocyte Abs 0.5 0.2 - 1.0 x10(3)/mcL Eosinophils % 1.9 0.0 - 7.0 % Eosinophils Abs 0.2 0.0 - 0.5 x10(3)/mcL Basophils % 0.2 0.0 - 2.0 % Basophils Abs 0.0 0.0 - 0.2 x10(3)/mcL Immature Gran % 0.20 0.00 - 0.66 % Sofía Gran Abs 0.02 0.00 - 0.05 x10(3)/mcL documented in this encounter Progress Notes * Liv Andino MD - 07/01/2013 3:41 PM EDT Endocrine Clinic Name: Darvin Sanz : 1970 PCP: ZANE LAKHANI Provided by: Liv Andino MD, PhD, FACE Date: 07/01/2013 Reason for visit: Endocrine visit for the [...] V15.29 Brief History of his endocrine problem from initial visit 2.5 yrs ago: Darvin Sanz is a very pleasant 40 y.o. year old male who presents for evaluation of hypogonadism diagnosed about 10 yrs ago with very low testosterone of 43 per patient. He used to take testosteroneinjections, and androgel for about a year and quit it 2-3 months ago as he thought that it's not working. Also tried Dostinex for 6 months in the past for some breast discharge (not galactorrhea per pt) but it did not help his testosterone levels either. He is symptomatic with fatigue, wt gain withmore fat but less muscle mass, ED, low libido and depression. Recent MRI scan of the pituitary on 09/20/10 was negative. Darvin Sanz is not doing well during the interim and missed follow up since initial visit on 12/23/10. He remains symptomatic with severe hypogonadism and did not start taking cabergoline for his hyperprolactinemia as rec'd as initial visit yet. He gained wt more from 399 lbs in 2010 to 470 lbs and then back down to 401 lbs today after diet portion control. He feels tired with ED and low libido as before. No palpitations, CP, SOB, GI issues, changes of skin or hairs and no heat or cold intolerance. +Migraine like CORDERO but no visual changes. No swelling inLEs or foot problem. Outside lab with PCP : 04/08/13 Testosterone [...] to Visit Medication Sig Dispense Refill ??? lisinopril (PRINIVIL;ZESTRIL) 10 mg tablet take 1 tablet by mouth once daily 90 tablet 0 ??? atenolol (TENORMIN) 100 mg tablet take 1 tablet by mouth once daily 90 tablet 3 ??? esomeprazole (NEXIUM) 20 mg capsule Take 20 mg by mouth every morning (before breakfast). ??? hydrochlorothiazide (HYDRODIURIL) 25 mg tablet Take 25 mg by mouth daily. Unsure of dose ??? ACETAMINOPHEN (TYLENOL ORAL) ??? citalopram (CELEXA) 40 mg tablet ??? metFORMIN (GLUCOPHAGE-XR) 500 mg 24 hr tablet TAKE ONE TABLET DAILY FOR 3-7 DAYS, THEN 2 TABLETS DAILY FOR 3-7 DAYS, THEN 3 TABLETS DAILY TOLERATED 180 tablet 1 ??? cabergoline (DOSTINEX) 0.5 mg tablet Take 0.5 tablets by mouth twice a week. 25 tablet 4 No Known Allergies History Social History ??? Marital Status: Spouse Name: N/A Number of Children: 6 ??? Years of Education: N/A Occupational History ??? disabled Social History Main Topics ??? Smoking status: Current Every Day Smoker -- 1.5 packs/day ??? Smokeless tobacco: Never Used ??? Alcohol Use: No ??? Drug Use: No ??? Sexually Active: Yes -- Female partner(s) Other Topics Concern ??? None Social History Narrative ??? None FAMILY HISTORY Family History Problem Relation Age of Onset ??? Coronary Artery Disease Mother ??? Obesity Mother ??? Heart Disease Mother ??? High Blood Pressure Father ??? Obesity Father ??? Cancer Father ??? Diabetes Maternal Aunt ??? Thyroid Disease Maternal Aunt Physical exam Wt 181.983 kg (401 lb 3.2 oz) Appearance: very obese, pleasant, NAD, here with HEENT: S/p left eye enucleation, no lid lag or exophthalmos on the Rt. Neck: supple, no goiter Chest: CTA bilaterally, no wheeze or crackles Heart: normal S1, S2, no murmur Abd: benign, ND, NT Ext: normal skin texture and temperature no pitting edema Neuro: no weakness, depressed reflexes Assessment: Darvin Sanz is a 42 y.o. year old male with longstanding hypogonadism for 13 years due to central cause and elevated PRL 72.8 at initial endocrine visit on 12/23/10 and now higher at 99.6 today. MRIscan of the pituitary was normal on 09/20/10 which is good news. He used to take testosterone injections, and [...] mass, ED, low libido and depression. He supposed to take cabergoline to lower PRL as it's the cause of his central hypogonadism but has not tried it yet and lost follow-up for the past 2.5 years. Once PRL is normalized, we can recheck his testosterone to see if he has gradual improvement and may start testosterone replacement as indicated. He also has HTN, dyslipidemia (low HDL), prediabetes with A1c 5.9% in 2010 on diet portion control with A1c 5.8% recently in February with PCP's lab. He quit metformin when his A1c is better but stillin pre-DM range, so we need to resume it to help with his insulin resistance (+marked acanthosis nigricans around the nape of the neck along with severe obesity with BMI of 65). He is interested in bariatric surgery per PCP's rec but he feels that he is not ready for it yet. He had vitamin D deficiency (25vitamin D = 18 on 12/23/10) and out of vitamin D 50,000 iu weekly for a long while and will resume it today. Recommendation: 1. Medication: Patient will start taking cabergoline 0.5 mg 2x/week to keep PRL down and will help adjust the dosage if needed soon during the interim. To resume metforminER 500->1000->1500 mg/day for his pre-DM (A1c > 5.7% and morbid obesitywith insulin resistance) To resume vitamin D 50,000 iu weekly to keep the level up in mid range for his bone health with severe hypogonadism and fatigue. If his free testosterone remains very low after PRL is normalized, he may need to resume testosterone replacement. He has JOSE DE JESUS and FH of prostate cancer, so we will try to avoid testosterone injections for him. Patient was advised of proper dosage, how to take the medication properly, precautions, and possible side effects of the medication prescribed. Patient will continue all other medications, low fat/controlled carb diet and execise regularly as tolerated to keep weight down or at least stable 2. Lab: check lab today for Total and free testosterone, PRL, FT4, corisol, ACTH, 25-vitamin D, PSA, CMP, CBC and A1c To recheck lab for PRL in 4 weeks locally We will let patient know lab test results and adjust medication if needed during this interim. 3. RTC: Next visit in 3 months. Will check Total and free testosterone, PRL and other labs as indicated at the time (quick-draw lab so we know the result right away at visit). We have reviewed our plan outlined above with the patient and patient verbalized understanding. Allquestions were answered and most of the time was spent on counseling about medication adjustment, the diagnostic and therapeutic decisions, and coordination of care. Liv Andino MD, PhD, FACE CC: ZANE LAKHANI Lab (partial results) after visit today: Recent Results (from the past 24 hour(s)) PSA Component Value Range PSA Total 0.24 0.00 - 4.00 ng/mL PROLACTIN Component Value Range Prolactin 99.6 (*) 4.0 - 15.2 ng/mL T4, FREE Component Value Range Free T4 1.18 0.90 - 1.60 ng/dL HEMOGLOBIN A1C Component Value Range Hemoglobin A1C 5.7 (*) <=5.6 % Est Avg Gluc 117 COMPREHENSIVE METABOLIC PANEL (NON-FASTING) Component Value Range Glucose Lvl 95 60 - 199 mg/dL BUN 14 10 - 20 mg/dL Creatinine 0.92 0.80 - 1.50 mg/dL Sodium 139 135 - 145 mmol/L Potassium 4.3 3.5 - 5.0 mmol/L Chloride 104 98 - 107 mmol/L CO2 25 22 - 31 mmol/L Anion Gap 10 5 - 15 mmol/L Calcium 9.1 8.5 - 10.5 mg/dL Total Protein 7.2 6.4 - 8.3 gm/dL Albumin 4.1 3.2 - 5.2 gm/dL AST 18 0 - 39 unit/L ALT 24 0 - 55 unit/L Alk Phos 86 40 - 120 unit/L Total Bilirubin 0.3 0.2 - 1.3 mg/dL Bili, Direct 0.1 0.0 - 0.3 mg/dL Estimated GFR >60 >=60 CBC (WITH DIFF) Component Value Range WBC 8.4 4.0 - 10.0 x10(3)/mcL RBC 5.07 4.63 - 6.08 x10(6)/mcL Hemoglobin 14.2 13.7 - 17.5 gm/dL Hematocrit 43.6 40.0 - 51.0 % MCV 86.0 79.0 - 92.0 fL MCH 28.0 25.6 - 32.2 pg MCHC 32.6 32.0 - 36.5 gm/dL Platelets 260 145 - 370 x10(3)/mcL RDWSD 46.7 (*) 35.0 - 46.0 fL RDWCV 15.0 (*) 10.9 - 14.4 % MPV 11.4 9.0 - 12.0 fL DIFFERENTIAL, AUTOMATED Component Value Range Neutrophils % 60.2 34.0 - 71.0 % Neutr Abs (ANC) 5.05 1.50 - 6.30 x10(3)/mcL Lymphocytes % 31.1 19.0 - 53.0 % Lymphocytes Abs 2.6 1.0 - 3.6 x10(3)/mcL Monocytes % 6.4 4.0 - 13.0 % Monocyte Abs 0.5 0.2 - 1.0 x10(3)/mcL Eosinophils % 1.9 0.0 - 7.0 % Eosinophils Abs 0.2 0.0 - 0.5 x10(3)/mcL Basophils % 0.2 0.0 - 2.0 % Basophils Abs 0.0 0.0 - 0.2 x10(3)/mcL Immature Gran % 0.20 0.00 - 0.66 % Sofía Gran Abs 0.02 0.00 - 0.05 x10(3)/mcL documented in this encounter Plan of Treatment Scheduled Orders Name Type Priority Associated Diagnoses Orde r Schedule Hemoglobin A1c Lab Routine Hypogonadism male Hyperprolactinemia Prediabetes Unspecified vitamin D deficiency Urinary frequency Expected: 07/01/2013, Expires: 07/02/2014 documented as of this encounter Procedures Procedure Name Priority Date/Time Associated Diagnosis Comments DIFFERENTIAL, AUTOMATED Routine 07/01/2013 3:29 PM EDT TESTOSTERONE, TOTAL AND FREE Routine 07/01/2013 3:29 PM EDT Hypogonadism male Hyperprolactinemia Prediabetes Unspecified vitamin D deficiency Urinary frequency VITAMIN D, 25-HYDROXY Routine 07/01/2013 3:29 PM EDT Hypogonadism male Hyperprolactinemia Prediabetes Unspecified vitamin D deficiency Urinary frequency PROLACTIN Routine 07/01/2013 3:29 PM EDT Hypogonadism male Hyperprolactinemia Prediabetes Unspecified vitamin D deficiency Urinary frequency CBC (WITH DIFF) Routine 07/01/2013 3:29 PM EDT Hypogonadism male Hyperprolactinemia Prediabetes Unspecified vitamin D deficiency Urinary frequency T4, FREE Routine 07/01/2013 3:29 PM EDT Hypogonadism male Hyperprolactinemia Prediabetes Unspecified vitamin D deficiency Urinary frequency PSA (ULTRASENSITIVE) Routine 07/01/2013 3:29 PM EDT Hypogonadism male Hyperprolactinemia Prediabetes Unspecified vitamin D deficiency Urinary frequency HEMOGLOBIN A1C Routine 07/01/2013 3:29 PM EDT Hypogonadism male Hyperprolactinemia Prediabetes Unspecified vitamin D deficiency Urinary frequency COMPREHENSIVE METABOLIC PANEL Routine 07/01/2013 3:29 PM EDT Hypogonadism male Hyperprolactinemia Prediabetes Unspecified vitamin D deficiency Urinary frequency documented in this encounter Results * Differential, Automated (07/01/2013 3:29 PM EDT) Neutrophil % 60.2 34.0 - 71.0 % CERNER MILLENNIUM Neutrophil Absolute 5.05 1.50 - 6.30 x10(3)/mcL CERNER MILLENNIUM Lymph % 31.1 19.0 - 53.0 % CERNER MILLENNIUM Lymphocytes Abs 2.6 1.0 - 3.6 x10(3)/mcL CERNER MILLENNIUM Monocyte % 6.4 4.0 - 13.0 % CERNER MILLENNIUM Monocyte Abs 0.5 0.2 - 1.0 x10(3)/mcL CERNER MILLENNIUM Eos % 1.9 0.0 - 7.0 % CERNER MILLENNIUM Eosinophils Abs 0.2 0.0 - 0.5 x10(3)/mcL CERNER MILLENNIUM Basophil % 0.2 0.0 - 2.0 % CERNER MILLENNIUM Baso Absolute 0.0 0.0 - 0.2 x10(3)/mcL CERNER MILLENNIUM Immature Gran % 0.20 0.00 - 0.66 % CERNER MILLENNIUM Comment: Immature granulocytes(IG's)percentage and absolute count will include metamyelocytes, myelocytes, and promyelocytes. Blood smears from CBCs yielding IG's will be scanned manually for concordance. If this scan disagrees with the automated IG or if promyelocytes are noted, a manual differential will be performed. Immature Gran Absolute 0.02 0.00 - 0.05 x10(3)/mcL CERNER MILLENNIUM Blood specimen (specimen) 07/01/2013 3:29 PM EDT 07/01/2013 3:41 PM EDT Liv Andino MD HEMATOLOGY ORDERA BLES Performing Organization Address [facility]/ZIP Co de Phone Number CERNER MILLENNIUM * (ABNORMAL) CBC (with Diff) (07/01/2013 3:29 PM EDT) White Blood Cell 8.4 4.0 - 10.0 x10(3)/mc L CERNER MILLENNIUM Red Blood Cell 5.07 4.63 - 6.08 x10(6)/mc L CERNER MILLENNIUM Hemoglobin 14.2 13.7 - 17.5 gm/dL CERNER MILLENNIUM Hematocrit 43.6 40.0 - 51.0 % CERNER MILLENNIUM Mean Cell Volume 86.0 79.0 - 92.0 fL CERNER MILLENNIUM Mean Cell Hemoglobin 28.0 25.6 - 32.2 pg CERNER MILLENNIUM Mean Cell Hemoglobin Concentration 32.6 32.0 - 36.5 gm/dL CERNER MILLENNIUM Platelet 260 145 - 370 x10(3)/mc L CERNER MILLENNIUM RDW Standard Deviation 46.7(H) 35.0 - 46.0 fL CERNER MILLENNIUM RDW coefficient of variation 15.0(H) 10.9 - 14.4 % CERNER MILLENNIUM Mean Platelet Volume 11.4 9.0 - 12.0 fL CERNER MILLENNIUM Blood specimen (specimen) 07/01/2013 3:29 PM EDT 07/01/2013 3:41 PM EDT Narrative Resulting Agency Comment Spec In Lab Liv Andino MD HEMATOLOGY ORDERA BLES Performing Organization Address [facility]/State/ZIP Co de Phone Number CERNER MILLENNIUM * Comprehensive metabolic panel (non-fasting) (07/01/2013 3:29 PM EDT) Glucose 95 60 - 199 mg/dL CERNER MILLENNIUM Comment:Diabetes: >=200 mg/d L plus symptoms Blood Urea Nitrogen 14 10 - 20 mg/dL CERNER MILLENNIUM Creatinine 0.92 0.80 - 1.50 mg/dL CERNER MILLENNIUM Comment: Please note that the pediatric reference intervals supplied above were not validated at [facility]. Results from pediatric patients should be interpreted in conjunction to the patient's age, height and muscle mass. Sodium 139 135 - 145 mmol/L CERNER MILLENNIUM Potassium 4.3 3.5 - 5.0 mmol/L CERNER MILLENNIUM Comment: Please note: ??Patients with WBC >100,000 may have falsely elevated Potassium levels. ??For accurate Potassium quantification in these patients send serum separator tube (gold top) for subsequent determinations. ??Contact the Clinical Chemistry Laboratory if there are any questions. Chloride 104 98 - 107 mmol/L CERNER MILLENNIUM Carbon Dioxide 25 22 - 31 mmol/L CERNER MILLENNIUM Anion Gap 10 5 - 15 mmol/L CERNER MILLENNIUM Calcium 9.1 8.5 - 10.5 mg/dL CERNER MILLENNIUM Protein, Total 7.2 6.4 - 8.3 gm/dL CERNER MILLENNIUM Albumin 4.1 3.2 - 5.2 gm/dL CERNER MILLENNIUM Aspartate Aminotransferase 18 0 - 39 unit/L CERNER MILLENNIUM Alanine Aminotransferase 24 0 - 55 unit/L CERNER MILLENNIUM Alkaline Phosphatase 86 40 - 120 unit/L CERNER MILLENNIUM Bilirubin, Total 0.3 0.2 - 1.3 mg/dL CERNER MILLENNIUM Bilirubin, Direct 0.1 0.0 - 0.3 mg/dL CERNER MILLENNIUM Est Glomerular Filtration Rate >60 >=60 CERNER MILLENNIUM Comment: This estimated GFR (eGFR) value was calculated using the MDRD equation which has been validated on patients between the ages of 18 and 70. The MDRD should not be used to assess kidney function in patients < 18 years of age or in patients with extremes of body mass, or in patients with acute kidney failure. This value should be multiplied by 1.2 for patients. For further information please copy and paste the following links into your internet browser. http://www.nkdep.nih.gov/lab-evaluation.shtml http://www.kidney.org/professionals/ Blood specimen (specimen) 07/01/2013 3:29 PM EDT 07/01/2013 3:41 PM EDT Narrative Resulting Agency Comment Spec In Lab Liv Andino MD CHEMISTRY ORDERAB LES Performing Organization Address [facility] Co de Phone Number [facility] * (ABNORMAL) VIT D Total Evaluation (07/01/2013 3:29 PM EDT) Vitamin D Total 25 OH 14(L) 30 - 100 ng/mL [facility] Comment: Deficient <10 ng/mL Insufficient 10 to 29 ng/mL Sufficient 30 to 100 ng/mL Potential Intoxication >100 ng/mL According to the [place] National Osteoporosis Foundation, Vitamin D concentrations >30 ng/mL are sufficient to protect bone health. ??The National Kidney Foundation has similarly stated that patients with Vitamin D concentrations <30ng/mL should be considered to be insufficient or deficient. http://www.kidney.org/professionals/KDOQI/guidelines_bone/Guide7.htm http://nof.org/files/nof/public/content/clinicalupdates/clinicalupdates/Issue2 5VitaminD/2012_VitaminD.html The IDS iSYS Vitamin D Immunoassay detects both 25-OH Vitamin D2 and 25-OH Vitamin D3, but only a total Vitamin D concentration is reported. Blood specimen (specimen) 07/01/2013 3:29 PM EDT 07/01/2013 3:41 PM EDT Narrative Resulting Agency Comment Spec In Lab Liv Andino MD CHEMISTRY ORDERAB LES Performing Organization Address [facility] Co de Phone Number [facility] * (ABNORMAL) Hemoglobin A1c (07/01/2013 3:29 PM EDT) Hemoglobin A1c 5.7(H) <=5.6 % [facility] Comment: As of 2013 the methodology for [...] Mellitus, Diabetes Care 2013; 36: Suppl. 1, S67-74 Estimated Average Glucose 117 mg/dL [facility] Comment: eAG equivalents for HbA1c percentages: HbA1c(%) [...] into estimated average glucose values. ??Diabetes Care 2008:31(8):6779-3837. Blood specimen (specimen) 07/01/2013 3:29 PM EDT 07/01/2013 3:41 PM EDT Narrative Resulting Agency Comment Spec In Lab Liv Andino MD CHEMISTRY ORDERAB LES [facility] * T4, free (07/01/2013 3:29 PM EDT) [facility] Signature Free T4 1.18 0.90 - 1.60 ng/dL [facility] Blood specimen (specimen) 07/01/2013 3:29 PM EDT 07/01/2013 3:41 PM EDT Narrative Resulting Agency Comment Spec In Lab Liv Andino MD CHEMISTRY ORDERAB LES Performing Organization Address City/[facility] Co de Phone Number [facility] * (ABNORMAL) Prolactin (07/01/2013 3:29 PM EDT) Prolactin 99.6(H) 4.0 - 15.2 ng/mL [facility] Blood specimen (specimen) 07/01/2013 3:29 PM EDT 07/01/2013 3:41 PM EDT Narrative Resulting Agency Comment Spec In Lab Liv Andino MD CHEMISTRY ORDERAB LES Performing Organization Address [facility] Co de Phone Number [facility] * PSA (07/01/2013 3:29 PM EDT) Prostate Specific Antigen (Ultrasensitiv e) 0.24 0.00 - 4.00 ng/mL [facility] Blood specimen (specimen) 07/01/2013 3:29 PM EDT 07/01/2013 3:41 PM EDT Narrative Resulting Agency Comment Spec In Lab Liv Andino MD CHEMISTRY ORDERAB LES Performing Organization Address City/[facility] Co de Phone Number [facility] * (ABNORMAL) Testosterone, total and free (07/01/2013 3:29 PM EDT) Testo Total 20(L) 250 - 1100 ng/dL [facility] Comment: For more information on this test, go to http://education.[employer]/faq/ TotalTestosteroneLCMSMS Testo Free (JUNE) 2.0(L) 35.0 - 155.0 pg/mL [facility] Comment: Test Performed by Huong Rush, [facility], [address] [place], [place] Thiago Mix M.D., Ph.D., Director of Laboratories , [facility] [id number] Blood specimen (specimen) 07/01/2013 3:29 PM EDT 07/04/2013 1:19 PM EDT Narrative Resulting Agency Comment Spec In Lab Liv Andino MD LAB SEND OUT KATHRYN CINTRON [facility] Organization Address City/State/ZIP Co de Phone Number [facility] documented in this encounter Visit Diagnoses Diagnosis Hypogonadism male Other testicular hypofunction Hyperprolactinemia Other and unspecified anterior pituitary hyperfunction Prediabetes Other abnormal glucose Unspecified vitamin D deficiency Urinary frequency documented in this encounter Care Teams Supervisor Gluing Relationship Specialty Start Date End Date Татьяна Koehler PA [address] [place] [address] PCP - General 04/12/13 10/11/19 documented as of this encounter
--- OUTSIDE RECORDS SUMMARY | 2023-10-07 20:53 | XMS_ITS | Encounter Summary ---
Author Organization [facility] Address [facility] [place] [address] Care Team Providers Care Automotive Manager Name Role Phone Татьяна Koehler Primary Care Provider [phone]- [phone] Reason for Visit * Reason Comments Medication Refill Encounter Details Date Type Department Care Team (Late st Contact Info) Description 09/18/2015 Refill [place] [address] Darvin Durand MD [facility] [place] [address] Social History Tobacco Use Types Packs/Day Years [...] Telephone Encounter - Lucero Montanez LPN - 09/19/2015 8:45 AM EDT Rx request received. Patient last seen 07/29/[address] Amaya who is no longer at [facility]. Patient was a no show for 2 appointments since that time. Called patient. Phone # in edh is a non working #. documented in this encounter Plan of Treatment Not on file documented as of this encounter Visit Diagnoses Not on filedocumented in this encounter Care Teams Automotive Manager Relationship Specialty Start Date End Date Татьяна Koehler PA [address] [place] [address] PCP - General 04/12/13 10/11/19 documented as of this encounter
--- OUTSIDE RECORDS SUMMARY | 2023-10-07 20:53 | XMS_ITS | Encounter Summary ---
Author Organization [facility] [place] [address] Care Team Providers Care Route Delivery Service Driver Name Role Phone Татьяна Koehler Primary Care Provider +1- [phone] Encounter Details Date Type Department Care Team ([facility] st Contact Info) Description 12/15/2017 [place] [address] Carolyne Adams Social History Tobacco Use Types [...] * Telephone Encounter - Carolyne Adams - 12/15/2017 2:29 PM EDT Darvin Sanz [id number] Diagnosis: GERD 1. Have you ever had a egd before? [x] YES [] NO If Yes, Date of Last [place]: If yes, did you have any problems with the procedure? [] YES [] NO Explain: 2. Do you take any Blood Thinners? [] YES [x] NO If Yes, type: 3. Do you have a Pacemaker or Defibrillator device? [] YES [x] NO If Yes send inN2Careet message to [facility] END[facility] DEVICE CHECK 4. Are you a diabetic? [] YES [x] NO If yes, controlled by meds or diet? 5. Do you have any Allergies to Eggs, Latex or Medications? [] YES [] NO If Yes, what: ibuprofen 6. Do you take any Oral Iron Supplements (Including multi vitamins)? [] YES [x] NO 7. Do you have a history of three or more abdominal surgeries? [] YES [x] NO 8. Have you had a problem with sedation or anesthesia? [] YES [x] NO 9. Do you have a c-pap machine or oxygen tank? [x] C-PAP [] Oxygen [] NO bipap 10. Do you take prescription narcotic pain medications? [x] YES [] NO vicodin 11. You must have a responsible alliance party stay at the facility during your procedure and drive you home? [x] YES Height: 5'10 Weight: 432 BMI: ____ Age:47 y.o. documented in this encounter Plan of Treatment Not on file documented as of this encounter Visit Diagnoses Not on filedocumented in this encounter Care Teams Route Delivery Service Driver Relationship Specialty Start Date End Date Татьяна Koehler PA [address] [place] [address] PCP - General 04/12/13 10/11/19 documented as of this encounter
--- OUTSIDE RECORDS SUMMARY | 2023-10-07 20:53 | XMS_ITS | Encounter Summary ---
[place] [address] Care Team Providers Care Tire Rebuilder Name Role Phone Татьяна Koehler Primary Care Provider +1- [phone] Reason for Visit * Reason Comments Medication Refill Encounter Details Date Type Department Care Team (Late st Contact Info) Description 12/05/2016 Refill [place] [address] Darvin Durand MD [facility] [place] [address] Social History Tobacco Use Types Packs/Day Years [...] on filedocumented in this encounter Care Teams Tire Rebuilder Relationship Specialty Start Date End Date Татьяна Koehler PA [address] [place] [address] PCP - General 04/12/13 10/11/19 documented as of this encounter
--- OUTSIDE RECORDS SUMMARY | 2023-10-07 20:53 | XMS_ITS | Encounter Summary ---
[place] [address] Care Team Providers Care Metal Baler Name Role Phone Татьяна Koehler Primary Care Provider +1- [phone] Reason for Visit * Reason Onset Date Comments Other 10/27/2017 Encounter Details Date Type Department Care Team (Late st Contact Info) Description 10/27/2017 Telephone [place] [id number] Hermelinda Graham, CRM [employer] [facility] [place] [address] Other Social History Tobacco Use Types Packs/Day Years [...] * Telephone Encounter - Hermelinda Graham - 10/27/2017 4:32 PM EDT Bariatric Surgery Program Darvin was contacted for questions related to the packet of information he recently sent, and to confirm his current smoking status. Message left documented in this encounter Plan of Treatment Not on file documented as of this encounter Visit Diagnoses Not on filedocumented in this encounter Care Teams Metal Baler Relationship Specialty Start Date End Date Татьяна Koehler PA [address] [place] [address] PCP - General 04/12/13 10/11/19 documented as of this encounter
--- OUTSIDE RECORDS SUMMARY | 2023-10-07 20:53 | XMS_ITS | Encounter Summary ---
[place] [address] Care Team Providers Care Director Of Cardiac Rehabilitation Name Role Phone Татьяна Koehler Primary Care Provider +1- [phone] Encounter Details Date Type Department Care Team ([facility] st Contact Info) Description 01/31/2016 Orders [place] [address] Darvin Durand MD [facility] DR ENDOCRINOLOGY [id number] Social History Tobacco Use Types Packs/Day Years [...] on filedocumented in this encounter Care Teams Director Of Cardiac Rehabilitation Relationship Specialty Start Date End Date Татьяна Koehler PA [address] [place] [address] PCP - General 04/12/13 10/11/19 documented as of this encounter
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
--- OUTSIDE RECORDS SUMMARY | 2023-10-07 20:53 | XMS_ITS | Encounter Summary ---
Author Organization [facility]ly [facility] [place] [address] Care Team Providers Care Deicer Kit Assembler Name Role Phone Татьяна Koehler Primary Care Provider +1- [phone] Reason for Visit * Reason Onset Date Comments Medication Refill 10/20/2014 Encounter Details Date Type Department Care Team (Late st Contact Info) Description 10/20/2014 [place] [address] Darvin Durand MD [facility] [place] [address] Other testicular hypofunction Social History Tobacco Use Types Packs/Day Years [...] Telephone Encounter - Lucero Montanez LPN - 10/23/2014 10:31 AM EDT R/c to patient who was advised per Dr Durand to not have labs done until he has been back on cabergoline for at least two full weeks. Patient agrees with plan of care. Lab orders mailed to patient to have done locally * Telephone Encounter - Lucero Montanez LPN - 10/23/2014 10:15 AM EDT No response from patient. Called patient again at which time patient asked that Rx go to [facility] [place] and will have labs done at [facility] in [facility]. Patient also states he has been without cabergoline for 1 week and is asking how long he needs to be back on cabergoline before having labs done. * Telephone Encounter - Lucero Montanez LPN - 10/20/2014 12:59 PM EDT Message on endo nurse line from patient asking for Rx for cabergoline and order for labs to be done. Per Dr Durand PRL and total testosterone to be done. R/c to patient. No answer message left on home v/m for patient to r/c to nurse. ? Which pharmacy and where labs are to be done documented in this encounter Plan of Treatment Not on file documented as of this encounter Visit Diagnoses Diagnosis Other testicular hypofunction documented in this encounter Care Teams Deicer Kit Assembler Relationship Specialty Start Date End Date Татьяна Koehler PA [address] [place] [address] PCP - General 04/12/13 10/11/19 documented as of this encounter
--- OUTSIDE RECORDS SUMMARY | 2023-10-07 20:53 | XMS_ITS | Encounter Summary ---
Author Organization [facility] [place] [address] Care Team Providers Care Public Message Service Supervisor Name Role Phone Татьяна Koehler Primary Care Provider +1- [phone] Encounter Details Date Type Department Care Team ([facility] Contact Info) Description 02/05/2016 Telephone [place] [id number] Lucero Montanez LPN Social History Tobacco Use [...] Telephone Encounter - Lucero Montanez LPN - 02/05/2016 9:14 AM EST Call from patient PA needed for Androgel. Patient also wants Dr Durand to know that he was able to start Cabergoline yesterday. Patient was advised that it can take a few to several days for PA to be done and to receive a response back from insurance. Forward to corporate secretary for PA. documented in this encounter Plan of Treatment Not on file documented as of this encounter Visit Diagnoses Not on filedocumented in this encounter Care Teams Public Message Service Supervisor Relationship Specialty Start Date End Date Татьяна Koehler PA [address] [place] [address] PCP - General 04/12/13 10/11/19 documented as of this encounter
--- OUTSIDE RECORDS SUMMARY | 2023-10-07 20:53 | XMS_ITS | Encounter Summary ---
[place] [address] Care Team Providers Care Children'S Ministry Director Name Role Phone Татьяна Koehler Primary Care Provider +1- [phone] Encounter Details Date Type Department Care Team ([facility] st Contact Info) Description 03/10/2016 Orders [place] [address] Darvin Durand MD [facility] [place] [address] Social History Tobacco Use Types Packs/Day Years [...] on filedocumented in this encounter Care Teams Children'S Ministry Director Relationship Specialty Start Date End Date Татьяна Koehler PA [address] [place] [address] PCP - General 04/12/13 10/11/19 documented as of this encounter
--- OUTSIDE RECORDS SUMMARY | 2023-10-07 20:53 | XMS_ITS | Encounter Summary ---
Author Organization [facility] Address [facility] [place] [address] Care Team Providers Care Journal Box Inspector Name Role Phone Татьяна Koehler Primary Care Provider +1- [phone] Reason for Visit * Reason Comments Hypogonadism Encounter Details Date Type Department Care Team (Late st Contact Info) Description 04/27/2017 11:20 AM EST Office [place] [phone] Darvin Durand MD [facility] [place] [address] Prolactinoma Social History Tobacco Use Types Packs/Day [...] Sign Reading Time Taken Comments Blood Pressure 157/109 04/27/2017 11:20 AM EST Monster energy drink at time Pulse 62 04/27/2017 11:20 AM EST Temperature - - Respiratory Rate - - Oxygen Saturation - - Inhaled Oxygen Concentration - - Weight 180.4 kg (397 lb 12.8 oz) 04/27/2017 11:20 AM EST Height 177.8 cm (5' 10) 04/27/2017 11: 20 AM EST Body Mass Index 57.08 04/27/2017 11:20 AM EST documented in this encounter Progress Notes * Darvin Durand MD - 04/27/2017 11:20 AM EST Subjective: Patient ID: Darvin Sanz is a 46 y.o. male who comes in with his friend Jayashree to discuss his ongoingtreatment of his prolactinoma as well as his hypogonadism. Currently taking cabergoline 0.5 mg twice a week. Also using testosterone cypionate 0.75 mL's (150 mg) every 2 weeks. Said that the testosterone that he started last time I saw him had worked well and better than the patch that he had been on before. But he said over the last month he has noticed that it has not helped as much with his erections. He did mention that at times he can notice a little bit of sticky material coming from his nipples.. HPI Review of Systems Objective: Physical Exam Constitutional: He is oriented to person, place, and time. He appears well- developed and well-nourished. Neurological: He is alert and oriented to person, place, and time. Psychiatric: He has a normal mood and affect. His behavior is normal. Thought content normal. BP (!) 157/109 Comment: Monster energy drink at time Pulse 62 Ht 177.8 cm (5' 10) Wt (!) 180.4 kg (397 lb 12.8 oz) BMI 57.08 kg/m2 Assessment and Plan: Darvin's prolactinoma in the past has been well controlled with his cabergoline. His last MRI done [id number] did not show a definite abnormality. I have suspected in the past the Darvin's hypogonadism is not only due to his prolactinoma but also to his morbid obesity. I suggested that he switch to take 0.4 mL's (80 mg) of testosterone cypionate subcutaneously every week. He will also continue on cabergoline 0.5 mg twice a week. I will check his prolactin and total testosterone level today. We will then, most likely, have him come back to clinic in a year Greater than 20 of the 25 minute appointment was spent [id number] discussing the issues mentionedabove. documented in this encounter Plan of Treatment Not on file documented as of this encounter Procedures Procedure Name Priority Date/Time Associated Diagnosis Comments PROLACTIN Routine 04/27/2017 12:10 PM EST Prolactinoma TESTOSTERONE, TOTAL Routine 04/27/2017 1 2:10 PM EST Prolactinoma documented in this encounter Results * (ABNORMAL) Prolactin (04/19/2018 10:55 AM EST) Prolactin 64.8(H) 4.0 - 15.2 ng/mL [facility] Blood specimen (specimen) 04/19/2018 10:55 AM EST 04/19/2018 11:41 AM EST Narrative Resulting Agency Comment Spec In Lab Darvin Durand MD CHEMISTRY ORDERABLES [facility] [place] [address] * (ABNORMAL) Testosterone, total (04/19/2018 10:55 AM EST) Testosterone 1.48(L) 2.49 - 8.36 ng/mL [facility] Comment: Pediatric Reference Ranges: ? [...] Durand MD CHEMISTRY ORDERABLES Performing Organization Address [facility] Co de Phone Number [facility] [place] [address] * (ABNORMAL) Prolactin (04/27/2017 12:10 PM EST) Prolactin <0.5(L) 4.0 - 15.2 ng/mL [facility] Comment:Results rechecked Blood specimen (specimen) 04/27/2017 12:10 PM EST 04/27/2017 12:16 PM EST Narrative Resulting Agency Comment Spec In Lab Darvin Durand MD CHEMISTRY ORDERABLES Performing Organization Address [facility] [[email or web address]] de Phone Number [facility] [place] [address] * Testosterone, total (04/27/2017 12:10 PM EST) Testosterone 5.72 2.80 - 8.00 ng/mL [facility] Comment: Reference Ranges: ? Males [...] package insert 09/01, V2. Blood specimen (specimen) 04/27/2017 12:10 PM EST 04/27/2017 12:16 PM EST Narrative Resulting Agency Comment Spec In Lab Darvin Durand MD CHEMISTRY ORDERABLES Performing Organization Address City/State/[facility] [place] [address] documented in this encounter Visit Diagnoses Diagnosis 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) documented in this encounter Care Teams Journal Box Inspector Relationship Specialty Start Date End Date Татьяна Koehler PA [address] [place] [address] PCP - General 04/12/13 10/11/19 documented as of this encounter
--- OUTSIDE RECORDS SUMMARY | 2023-10-07 20:53 | XMS_ITS | Encounter Summary ---
Author Organization [facility] [place] [address] Care Team Providers Care Phlebotomist Prn Name Role Phone Татьяна Koehler Primary Care Provider +1- [phone] Encounter Details Date Type Department Care Team ([facility] st Contact Info) Description 12/28/2014 Telephone [place] [address] Darvin Durand MD [facility] [place] [address] Social History Tobacco Use Types Packs/Day Years [...] Telephone Encounter - Lucero Montanez LPN - 12/28/2014 4:00 PM EST R/c to patient who was told that lab orders will be faxed to [facility] but that he needs to schedule f/u. Confirmation on fax received. Call transferred to racing secretary and handicapper documented in this encounter Plan of Treatment Not on file documented as of this encounter Visit Diagnoses Not on filedocumented in this encounter Care Teams Phlebotomist Prn Relationship Specialty Start Date End Date Татьяна Koehler PA [address] [place], [place] [address] PCP - General 04/12/13 10/11/19 documented as of this encounter
--- OUTSIDE RECORDS SUMMARY | 2023-10-07 20:53 | XMS_ITS | Encounter Summary ---
Author Organization Formerly [facility] Address [facility] [place] [address] Care Team Providers Care Youtuber Name Role Phone Татьяна Koehler Primary Care Provider +1- [phone] Encounter Details Date Type Department Care Team (Latest Contact Info) Description 09/22/2013 4:30 PM EDT - 09/22/2013 11:59 PM EDT Hospital Encounter XRay at [address] [place] [address] Acquired leg length discrepancy Social History Tobacco Use Types Packs/Day Years [...] Sig Dispensed Refills Start Date End Date furosemide (Lasix) 40 mg Tablet Take 60 mg by mouth daily. Reported on 05/05/2016 celecoxib (CeleBREX) 400 mg capsule Take 400 mg by mouth daily. cyclobenzaprine (FLEXERIL) 10 mg tablet Take 10 mg by mouth 2 times daily as needed. Reported on 05/05/2016 04/16/2018 ergocalciferol (VITAMIN D) 50,000 unit capsule weekly 13 capsule 4 07/01/2013 07/01/2014 methylphenidate (RITALIN) 20 mg tablet Take 20 mg by mouth 3 times daily. Reported on 01/31/2016 01/31/2016 DILTiazem (CARDIZEM CD) 180 mg 24 hr capsule Take 360 mg by mouth daily. Reported on 05/05/2016 05/05/2016 meloxicam (MOBIC) 15 mg tablet Take 15 mg by mouth 2 times daily. 04/27/2017 HYDROcodone-acetaminop hen 5-325 mg per tablet Take 2 tablets by mouth every 6 hours as needed. Reported on 01/31/2016 01/31/2016 metFORMIN (GLUCOPHAGE-XR) 500 mg 24 hr tablet Take 1-3 tablets by mouth daily. 270 tablet 3 07/01/2013 01/31/2016 lisinopril (PRINIVIL;ZESTRIL) 10 mg tablet take 1 tablet by mouth once daily 90 tablet 0 03/06/2012 01/31/2016 atenolol (TENORMIN) 100 mg tabletIndications:HTN (hypertension) take 1 tablet by mouth once daily 90 tablet 3 12/10/2011 05/05/2016 esomeprazole (NEXIUM) 20 mg capsule Take 20 mg by mouth every morning (before breakfast). Reported on 01/31/2016 01/31/2016 hydrochlorothiazide (HYDRODIURIL) 25 mg tablet Take 25 mg by mouth daily. Reported on 01/31/2016 01/31/2016 citalopram (CELEXA) 40 mg tablet 08/03/2003 11/23/2020 documented as of this encounter Plan of Treatment Not on file documented as of this encounter Procedures Procedure Name Priority Date/Time Associated Diagnosis Comments XR JOINT TEAM STANDING ALIGNMENT AP LAT SCHUSS SKYLINE BILAT Routine 09/22/2013 5:11 PM EDT Acquired leg length discrepancy documented in this encounter Results * XR Joint Team Standing Alignment AP Lat Schuss [place] Bilateral (09/22/2013 5:11 PM EDT) Anatomical Region [...] consistent with mild osteoarthritis. Clinton Pal MD IMG DX ORDERABLES documented in this encounter Visit Diagnoses Diagnosis Acquired leg length discrepancy Unequal leg length (acquired) documented in this encounter Care Teams Youtuber Relationship Specialty Start Date End Date Татьяна Koehler PA [address] [place] [address] PCP - General 04/12/13 10/11/19 documented as of this encounter
--- OUTSIDE RECORDS SUMMARY | 2023-10-07 20:53 | XMS_ITS | Encounter Summary ---
Author Organization [facility] [place] [address] Care Team Providers Care Field Foreman Name Role Phone Татьяна Koehler Primary Care Provider +1- [phone] Reason for Visit * Reason Onset Date Comments Prior Authorization 08/06/2017 Encounter Details Date Type Department Care Team (Late st Contact Info) Description 08/06/2017 Telephone [place] [id number] Deana Luna Prior Authorization Social History Tobacco Use Types [...] * Telephone Encounter - Cony Toledo - 08/14/2017 3:57 PM EDT Medication Prior Authorization CHUCK Medication name/dose/directions: TESTO CYP 200MG/ML Health plan decision: APPROVED Quantity approved: Authorization number: Start date: 05/08/17 End date: 08/06/18 documented in this encounter Plan of Treatment Not on file documented as of this encounter Visit Diagnoses Not on filedocumented in this encounter Care Teams Field Foreman Relationship Specialty Start Date End Date Татьяна Koehler PA [address] [place] [address] PCP - General Family Medicine 10/19/19 documented as of this encounter
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
--- OUTSIDE RECORDS SUMMARY | 2023-10-07 20:53 | XMS_ITS | Encounter Summary ---
Author Organization [facility] Address [facility] [place] [address] Care Team Providers Care Manager Risk Name Role Phone Galeeric Татьяна DEGROOT Primary Care Provider +1- [phone] Encounter Details Date Type Department Care Team ([facility] st Contact Info) Description 01/31/2016 11:00 AM EST Office [place] [address] Darvin Durand MD [facility] [place] [address] Hypogonadism in male; Hyperprolactinemia Social History Tobacco Use Types Packs/Day Years [...] Sign Reading Time Taken Comments Blood Pressure 179/98 01/31/2016 11:24 AM EST hasn't taken medication yet today Pulse 61 01/31/2016 11:24 AM EST Temperature - - Respiratory Rate - - Oxygen Saturation - - Inhaled Oxygen Concentration - - Weight 182.8 kg (403 lb) 01/31/2016 11: 24 AM EST Height 177.8 cm (5' 10) 01/31/2016 11: 24 AM EST Body Mass Index 57.82 01/31/2016 11:24 AM EST documented in this encounter Progress Notes * Darvin Durand MD - 01/31/2016 11:00 AM EST Subjective: Patient ID: Darvin Sanz is a 45 y.o. male who comes in to see me for the first time for his hypogonadism, hyperprolactinemia, and morbid obesity. He has been followed here in the past Dr. Amaya in endocrine clinic.. He had been on cabergoline a half tablet a day twice a week and also had been on some AndroGel. He said he has lost 100 pounds over the last couple of years. He was told years ago that he was not going to be able to father children but has a 13 and an 11-year-old. He has been off of cabergoline and the AndroGel recently because he did not have a prescription. He would like to get back on the treatment. . HPI Review of Systems Objective: Physical Exam Constitutional: He is oriented to person, place, and time. He appears well- developed and well-nourished. Neurological: He is alert and oriented to person, place, and time. Psychiatric: He has a normal mood and affect. His behavior is normal. Ht 177.8 cm (5' 10) Wt (!) 182.8 kg (403 lb) BMI 57.82 kg/m2 Assessment and Plan: I will have Darvin start back on cabergoline 0.5 mg twice a week and also AndroGel 1.62% two pumps a day. We will draw some blood today prior to restarting the medication and then we will see him in 3 months. I told him that is possible at some point he could taper off of the AndroGel once his prolactin level is normal. However, it is also quite possible that his morbid obesity is 1 of the major causes of his low testosterone. Greater than 20 of the 25 minute appointment was spent in [id number] discussion concerning restarting his medications. documented in this encounter Miscellaneous Notes * Addendum Note - Rashaad Webber LPN - 01/31/2016 12:13 PM ESTAddended by: RASHAAD WEBBER on: 01/31/2016 12:13 PM Modules accepted: Orders documented in this encounter Plan of Treatment Not on file documented as of this encounter Procedures Procedure Name Priority Date/Time Associated Diagnosis Comments PROLACTIN Routine 01/31/2016 11:53 AM EST Hypogonadism in male TESTOSTERONE, TOTAL Routine 01/31/2016 1 1:53 AM EST Hypogonadism in male LUTEINIZING HORMONE Routine 01/31/2016 1 1:53 AM EST Hypogonadism in male Hyperprolactinemia documented in this encounter Results * (ABNORMAL) Testosterone, total (05/05/2016 1:01 PM EDT) [facility] Signature Testosterone 2.15(L) 2.80 - 8.00 ng/mL [facility] Comment: Reference Ranges: ? Males [...] pediatric reference ranges derived from review of [employer] E170 Testosterone II reagent package insert 09/01, V2. Blood specimen (specimen) 05/05/2016 1:01 PM EDT 05/05/2016 1:06 PM EDT Narrative Resulting Agency Comment Spec In Lab Darvin Durand MD CHEMISTRY ORDERABLES Performing Organization Address [facility] Co de Phone Number [facility] [place] [address] * Prolactin (05/05/2016 1:01 PM EDT) Prolactin 7.8 4.0 - 15.2 ng/mL [facility] Blood specimen (specimen) 05/05/2016 1:01 PM EDT 05/05/2016 1:06 PM EDT Narrative Resulting Agency Comment Spec In Lab Darvin Durand MD CHEMISTRY ORDERABLES Performing Organization Address [facility] de Phone Number [facility] [place] [address] * (ABNORMAL) Prolactin (01/31/2016 11:53 AM EST) Prolactin 81.9(H) 4.0 - 15.2 ng/mL [facility] Blood specimen (specimen) 01/31/2016 11:53 AM EST 01/31/2016 12:06 PM EST Narrative Resulting Agency Comment Spec In Lab Darvin Durand MD CHEMISTRY ORDERABLES [facility] [place] [address] * (ABNORMAL) Testosterone, total (01/31/2016 11:53 AM EST) Testosterone 1.55(L) 2.80 - 8.00 ng/mL [facility] Comment: Reference Ranges: ? Males [...] package insert 09/01, V2. Blood specimen (specimen) 01/31/2016 11:53 AM EST 01/31/2016 12:06 PM EST Narrative Resulting Agency Comment Spec In Lab Darvin Durand MD CHEMISTRY ORDERABLES Performing Organization Address [facility] de Phone Number [facility] [place] [address] * Luteinizing Hormone (01/31/2016 11:53 AM EST) Luteinizing Hormone 3.8 1.7 - 8.6 mlU/ML [facility] Comment: Reference ranges: ?? Females ?? Follicular: ? 2.4-12.6 mIU/mL ?? Ovulation: ?14.0-95.6 mIU/mL ?? Luteal: ? 1.0-11.4 mIU/mL ?? Postmenopausal: ? 7.7-58.5 mIU/mL Blood specimen (specimen) 01/31/2016 11:53 AM EST 01/31/2016 12:06 PM EST Narrative Resulting Agency Comment Spec In Lab Darivn Durand MD CHEMISTRY ORDERABLES Performing Organization Address [facility] Phone Number [facility] [place] [address] documented in this encounter Visit Diagnoses Diagnosis Hypogonadism in male Hyperprolactinemia Other and unspecified anterior pituitary hyperfunction documented in this encounter Care Teams Manager Risk Relationship Specialty Start Date End Date Татьяна Koehler PA [address] [place] [address] PCP - General 04/12/13 10/11/19 documented as of this encounter
--- OUTSIDE RECORDS SUMMARY | 2023-10-07 20:53 | XMS_ITS | Encounter Summary ---
Author Organization [facility] [place] [address] Care Team Providers Care Design/Animation Instructor Name Role Phone Татьяна Koehler Primary Care Provider +1- [phone] Encounter Details Date Type Department Care Team ([facility] Contact Info) Description 01/13/2018 Telephone Weight and Wellness at [place] [address] [place] [id number] Ana M Vaz, PhD [facility] [address] [place] [address] Social History Tobacco Use Types Packs/Day Years [...] * Telephone Encounter - Lisa Moses - 01/13/2018 11:06 AM EST Sent Bar Surg psych eval form to [facility] documented in this encounter Plan of Treatment Not on file documented as of this encounter Visit Diagnoses Not on filedocumented in this encounter Care Teams Design/Animation Instructor Relationship Specialty Start Date End Date Татьяна Koehler PA [address] [place] [address] PCP - General 04/12/13 10/11/19 documented as of this encounter
--- OUTSIDE RECORDS SUMMARY | 2023-10-07 20:53 | XMS_ITS | Encounter Summary ---
Author Organization Count Includes [facility] Address [facility] [place] [address] Care Team Providers Care Tractor Trailer Operator Name Role Phone Татьяна Koehler Primary Care Provider +1- [phone] Encounter Details Date Type Department Care Team ([facility] st Contact Info) Description 09/22/2013 4:29 PM EDT Hospital Encounter XRay at [address] [place] [address] [place] Social History Tobacco Use Types Packs/Day Years [...] Name Priority Date/Time Associated Diagnosis Comments XR SACRUM AND COCCYX Routine 09/22/2013 5:09 PM EDT [place] documented in this encounter Results * XR sacrum and coccyx (09/22/2013 5:09 [...] documented in this encounter Visit Diagnoses Diagnosis Coccydynia Other disorder of coccyx documented in this encounter Care Teams Tractor Trailer Operator Relationship Specialty Start Date End Date Татьяна Koehler PA [address] [place] [address] PCP - General 04/12/13 10/11/19 documented as of this encounter
--- OUTSIDE RECORDS SUMMARY | 2023-10-07 20:53 | XMS_ITS | Encounter Summary ---
Author Organization [facility] [place] [address] Care Team Providers Care Waist Fitter Name Role Phone Zakia Татьяна DEGROOT Primary Care Provider +1- [phone] Encounter Details Date Type Department Care Team (Late st Contact Info) Description 04/27/2017 Orders [place] [address] Darvin Durand MD [facility] [place] [address] Prolactinoma Social History Tobacco Use Types Packs/Day [...] as of this encounter Results * (ABNORMAL) Prolactin (04/27/2017 12:10 PM EST) Prolactin <0.5(L) 4.0 - 15.2 ng/mL [facility] Comment:Results rechecked Blood specimen (specimen) 04/27/2017 12:10 PM EST 04/27/2017 12:16 PM EST Narrative Resulting Agency Comment Spec In Lab Darvin Durand MD CHEMISTRY ORDERABLES [facility] [place] [address] * Testosterone, total (04/27/2017 12:10 PM EST) Testosterone 5.72 2.80 - 8.00 ng/mL [facility] Comment: Reference Ranges: ? Males [...] Lilly E170 Testosterone II reagent package insert V2. 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
--- OUTSIDE RECORDS SUMMARY | 2023-10-07 20:53 | XMS_ITS | Encounter Summary ---
Author Organization Formerly [facility] [place] [place] [address] Care Team Providers Care Reproduction Specialist Name Role Phone Татьяна Koehler Primary Care Provider +1- [phone] Encounter Details Date Type Department Care Team (Late st Contact Info) Description 04/19/2018 10:30 AM EST - 04/19/2018 11:30 AM EST Surgery Contract [place] [id number] Andres Mccall MD [facility] [place] [address] CARDIAC CATHETERIZATION Social History Tobacco Use Types Packs/Day Years [...] Sign Reading Time Taken Comments Blood Pressure 171/104 04/19/2018 10:45 AM EST Pulse 71 04/19/2018 10:45 AM EST Temperature 36.6 ??C (97.9 ??F) 04/19/2018 10:[address] Respiratory Rate 18 04/19/2018 10:45 AM EST Oxygen Saturation 94% 04/19/2018 10:45 AM EST Inhaled Oxygen Concentration - - Weight [...] by your doctor, do not take any gxiq-zmi-bnmnydc medicinesor herbal preparations without first discussing this with your doctor or pharmacist. There is the possibility of side effects and interactions when these are combined. Follow Up Care Who to call with questions or problems If there are any questions or problems that you think might be related to your cardiac cath or angioplasty, contact the machine operator slitter technician external relations manager by calling [facility] at . * Patient Instructions* Samia Kurtz MD - 04/19/2018 2:47 PM EST Cardiology Instructions Call your doctor if: Chest pain, dyspnea, pain or swelling in legs occurs. If you have non-emergent questions between now and the time of your follow up appointments: -During 8am-5pm Thursday through Thursday call [phone] to speak with a nurse in the cardiology clinic -All other times call [phone] and ask to speak to the podiatry doctor external relations manager. MEDICATIONS - restart your metformin on - [...] Appointments: Primary care provider: Cardiology: ZANE Ulloa [phone] Follow up as planned or as needed. [...] x 5/8 NeedleIndications:Prol actinoma 1 Units by [facility].(Non-Drug; Combo Route) route every 7 days. 30 each 1 04/27/2017 Needle, Disp, 22 G 22 gauge x 1 Needle 1 each by [facility].(Non-Drug; Combo Route) route every 14 days. 6 each 3 04/01/2017 Syringe, Disposable, 1 mL Syringe 1 each by [facility].(Non-Drug; Combo Route) route every 14 days. Must [...] x 1 SyringeIndications:Pro lactinoma 1 Syringe by [facility].(Non-Drug; Combo Route) route once a week. 30 [...] it happened twice this week while watchi [employer] TV. He feels warm when it occurs, [...] Mccall MD - 04/19/2018 2:15 PM EST [facility] Operative Note Patient Name: Darvin ALBRECHT: [id number] MR#: [id number] Case Date: 04/19/2018 Surgeon: Surgeon(s) and Role: * Andres Mccall MD - Primary * Samia Kurtz MD - Fellow-Interventional * Alcides Ivory PA - Physician [employer] Preoperative diagnosis: Cardiomyopathy, unspecified type [I42.9]/Abnormal stress [...] complications. A call is out to referring machine operator slitter technician and the fellow discussed with the patient and their family. A time-out was conducted prior to the start of the procedure to verify the correct patient and procedure, procedure location, and all relevant critical information. Full report to follow. ANDRES MCCALL MD Definitions from [employer] A[employer] Clinical Frailty [...] with all outside activities and with minor plate fitter. May need help with bathing and dressing. [...] EST) Prolactin 64.8(H) 4.0 - 15.2 ng/mL [facility] Blood specimen (specimen) 04/19/2018 10:55 AM EST 04/19/2018 11:41 AM EST Narrative Resulting Agency Comment Spec In Lab Darvin Durand MD CHEMISTRY ORDERABLES [facility] [place] [address] * (ABNORMAL) Testosterone, total (04/19/2018 10:55 AM EST) Testosterone 1.48(L) 2.49 - 8.36 ng/mL [facility] Comment: Pediatric Reference Ranges: ? [...] In Lab Darvin Durand MD CHEMISTRY ORDERABLES [facility] [place] [address] documented in this encounter Visit Diagnoses Diagnosis [...] MAR Action Action Date Dose Rate Site fentaNYL 50 mcg/mL multi-dose injection ONCE PRN, Starting on Thu04/19/18 at 1242, Until Thu04/19/18 at 1702, Intra-Operative (Intra-Procedure), Routine Given 04/19/2018 1:31 PM EST 25 mcg Given 04/19/2018 12:52 PM EST 12.5 mcg Given 04/19/2018 12:42 PM EST 12.5 mcg heparin (porcine) injection ONCE PRN, Starting on Thu04/19/18 at 1255, Until Thu04/19/18 at 1418, Cath (Intra-Procedure), Routine Given 04/19/2018 1:34 PM EST 1,000 Units Given 04/19/2018 12:55 PM EST 7,000 Units midazolam (PF) (VERSED) multi-dose injection ONCE PRN, Starting on Thu04/19/18 at 1242, Until Thu04/19/18 at 1418, Cath (Intra-Procedure), Routine Given 04/19/2018 12:52 PM EST 0.5 mg Given 04/19/2018 12:42 PM EST 0.5 mg Given 04/19/2018 12:41 PM EST 0.5 mg nitroGLYcerin 100 mcg/mL intracoronary dilution ONCE PRN, Starting on Thu04/19/18 at 1252, Until Thu04/19/18 at 1418, Cath (Intra-Procedure), Routine Given 04/19/2018 12:52 PM EST 150 mcg sodium chloride 0.9% infusion 50 mL/hr, Intravenous, CONTINUOUS, Starting on Thu04/19/18 at 1100, Until Thu04/19/18 at 1159, Cath (Day of Procedure) New Bag 04/19/2018 10:58 AM EST 50 mL/hr 50 mL/hr sodium chloride 0.9% infusion 100 mL/hr, Intravenous, CONTINUOUS, Starting on Thu04/19/18 at 1515, Until Thu04/19/18 at 1714, Recovery (Recovery-Hospital Unit) New Bag 04/19/2018 3:00 PM EST 100 mL/hr 100 mL /hr verapamil (ISOPTIN) injection ONCE PRN, Starting on Thu04/19/18 at 1252, Until Thu04/19/18 at 1418, Administer over 2 Minutes, Cath (Intra-Procedure) Given 04/19/2018 12:52 PM EST 2.5 mg documented in this encounter Active and Recently [...] 1500 (New Bag - Prov ider: Chani Sarkar, RANDOLPH) PRN Medication Order 04/17/2018 04/18/2018 04/19/2018 fentaNYL 50 mcg/mL multi-dose injection (CANCELED) ONCE PRN, Starting on Thu04/19/18 at 1242, Until Thu04/19/18 at 1702, Intra-Operative (Intra-Procedure), Routine 1241 (Given - Provid er: Edwige Styles RN)1242 (Given - Provider: Edwige Styles RN)1252 (Given - Provider: Edwige Styles RN)1331 (Given - Provider: Beti Hguhes, RANDOLPH) heparin (porcine) injection (CANCELED) ONCE PRN, [...] MD) documented in this encounter Care Teams Reproduction Specialist Relationship Specialty Start Date End Date Татьяна Koehler PA [address] [place] [address] PCP - General 04/12/13 10/11/19 documented as of this encounter
--- OUTSIDE RECORDS SUMMARY | 2023-10-07 20:53 | XMS_ITS | Encounter Summary ---
Author Organization [facility] Address [facility] [place] [address] Care Team Providers Care Supervisor Customer Complaint Service Name Role Phone Татьяна Koehler Primary Care Provider +1- [phone] Encounter Details Date Type Department Care Team ([facility] st Contact Info) Description 01/31/2016 Orders [place] [address] Darvin Durand MD [facility] [place] [address] Hypogonadism in male; Hyperprolactinemia Social History Tobacco [...] documented as of this encounter Results * Luteinizing Hormone (01/31/2016 11:53 AM EST) Luteinizing Hormone 3.8 1.7 - 8.6 mlU/ML [facility] Comment: Reference ranges: ?? Females ?? Follicular: ? 2.4-12.6 mIU/mL ?? Ovulation: ?14.0-95.6 mIU/mL ?? Luteal: ? 1.0-11.4 mIU/mL ?? Postmenopausal: ? 7.7-58.5 mIU/mL Blood specimen (specimen) 01/31/2016 11:53 AM EST 01/31/2016 12:06 PM EST Narrative Resulting Agency Comment Spec In Lab Darvin Durand MD CHEMISTRY ORDERABLES Performing Organization Address [facility] de Phone Number [facility] [place] [address] * (ABNORMAL) Prolactin (01/31/2016 11:53 AM EST) Prolactin 81.9(H) 4.0 - 15.2 ng/mL [facility] Blood specimen (specimen) 01/31/2016 11:53 AM EST 01/31/2016 12:06 PM EST Narrative Resulting Agency Comment Spec In Lab Darvin Durand MD CHEMISTRY ORDERABLES Performing Organization Address [facility] de Phone Number [facility] [place] [address] * (ABNORMAL) Testosterone, total (01/31/2016 11:53 AM EST) Testosterone 1.55(L) 2.80 - 8.00 ng/mL [facility] Comment: Reference Ranges: ? [...] In Lab Darvin Durand MD CHEMISTRY ORDERABLES [facility] [place] [address] documented in this encounter Visit Diagnoses Diagnosis Hypogonadism in male Hyperprolactinemia Other and unspecified anterior pituitary hyperfunction documented in this encounter Care Teams Supervisor Customer Complaint Service Relationship Specialty Start Date End Date Татьяна Koehler PA [address] [place] [address] PCP - General 04/12/13 10/11/19 documented as of this encounter
--- OUTSIDE RECORDS SUMMARY | 2023-10-07 20:53 | XMS_ITS | Encounter Summary ---
Author Organization [facility] [place] [address] Care Team Providers Care Recreation Attendant Name Role Phone Татьяна Koehler Primary Care Provider +1- [phone] Reason for Visit * Reason Onset Date Comments Prior Authorization 05/06/2016 Encounter Details Date Type Department Care Team ([facility] st Contact Info) Description 05/06/2016 Telephone [place] [phone] Indra Stack Prior Authorization Social History Tobacco [...] * Telephone Encounter - Indra Matute - 05/06/2016 9:18 AM EDT Medication Prior Authorization Medication name/dose/directions: DEPOTESTOSTERONE CYPIONATE) 200 mg/mL Inject 0.75 mLs into the muscle every 14 days Rationale for request: HYPOGONADISM Health plan: [employer] Authorizing medical detail representative name: INDRA Faxed to health plan on: 05/06/16 Health plan decision: APPROVED Quantity approved: Authorization number: Start date: 02/24/16 End date: 05/08/17 Patient notified? Pharmacy notified? documented in this encounter Plan of Treatment Not on file documented as of this encounter Visit Diagnoses Not on filedocumented in this encounter Care Teams Recreation Attendant Relationship Specialty Start Date End Date Татьяна Koehler PA [address] [place] [address] PCP - General 04/12/13 10/11/19 documented as of this encounter
--- OUTSIDE RECORDS SUMMARY | 2023-10-07 20:53 | XMS_ITS | Encounter Summary ---
[place] [address] Care Team Providers Care Social Worker Palliative Care Name Role Phone Татьяна Koehler Primary Care Provider +1- [phone] Encounter Details Date Type Department Care Team ([facility] st Contact Info) Description 05/05/2016 Orders [place] [address] Darvin Durand MD [facility] [place] [place] [address] Social History Tobacco Use Types Packs/Day Years [...] on filedocumented in this encounter Care Teams Social Worker Palliative Care Relationship Specialty Start Date End Date Татьяна Koehler PA [address] [place] [address] PCP - General 04/12/13 10/11/19 documented as of this encounter
--- OUTSIDE RECORDS SUMMARY | 2023-10-07 20:53 | XMS_ITS | Encounter Summary ---
Author Organization Formerly [facility] [place] [address] Care Team Providers Care Psychiatric Therapist Name Role Phone Татьяна Koehler Primary Care Provider +1- [phone] Encounter Details Date Type Department Care Team (Latest Contact Info) Description 01/13/2018 Multidisciplinary Ca re Committee [place] [address] Hermelinda Graham APRN [facility] [place] [address] Social History Tobacco Use Types Packs/Day Years [...] encounter Progress Notes * Hermelinda Graham - 01/13/2018 7:04 AM EST BARIATRIC SURGERY PROGRAM CASE REVIEW Darvin Sanz is a 47 y.o. year-old male. His primary care physician is ZANE Ulloa. Bariatric Surgery Program introductory meeting attendance: + Evaluation by a member of the [facility] Bariatric Surgery Program previously: no Case presentation by: Dr. Hung with input from Dr. Vaz Staff present at today's meeting: Saadia Hung MD, Emt B,Shanita Hurley MD, Bin Price MD, Rosy Solares APRN, Hermelinda Graham APRN, Ana M Vaz, PhD Reason for presentation: concerns regarding readiness for surgery Patient Active Problem List Diagnosis Code ??? [...] SURGERY ??? ORTHOPEDIC SURGERY Plan of care: He is currently not a candidate for bariatric surgery due to lack of demonstration ofbehavior change, nicotine status and unstable housing. He will contact us when housing situation isstable, stops vaping and loses 20 pounds. documented in this encounter Plan of Treatment Not on file documented as of this encounter Visit Diagnoses Not on filedocumented in this encounter Care Teams Psychiatric Therapist Relationship Specialty Start Date End Date Татьяна Koehler PA [address] [place] [address] PCP - General 04/12/13 10/11/19 documented as of this encounter
--- OUTSIDE RECORDS SUMMARY | 2023-10-07 20:53 | XMS_ITS | Encounter Summary ---
Author Organization [facility] [place] [address] Care Team Providers Care Admissions Manager Rn Name Role Phone Татьяна Koehler Primary Care Provider +1- [phone] Encounter Details Date Type Department Care Team (Late st Contact Info) Description 06/23/2014 Orders [place] [address] Sola Amaya MD [facility] [place] [address] Hypogonadism in male; Vitamin D deficiency Social History Tobacco Use Types Packs/Day Years Used Date Smoking Tobacco: Never Cigarettes Smokeless Tobacco: Never Alcohol Use Standard Drinks/Week Comments No 0 (1 standard drink = 0.6 oz pur e alcohol) Sex and Gender Information Value Date Recorded Sex Assigned at Not on file Gender Identity Not on file Sexual Orientation Not on file documented as of this encounter Plan of Treatment Not on file documented as of this encounter Results * Calcium (07/28/2014 12:03 PM EDT) Calcium 9.0 8.5 - 10.5 mg/dL [facility] RAOIUM Blood specimen (specimen) 07/28/2014 12:03 PM EDT 07/28/2014 12:12 PM EDT Narrative Resulting Agency Comment Spec In Lab Evelia Wray MD CHEMISTRY ORDERAB LES [place] * (ABNORMAL) VIT D Total Evaluation (07/28/2014 12:03 PM EDT) Vitamin D Total 25 OH 27(L) 30 - 100 ng/mL [facility] Comment: Deficient <10 ng/mL Insufficient 10 to 29 ng/mL Sufficient 30 to 100 ng/mL Potential Intoxication >100 ng/mL According to the US National Osteoporosis Foundation, Vitamin D concentrations >30 ng/mL are sufficient to protect bone health. ??The National Kidney Foundation has similarly stated that patients with Vitamin D concentrations <30ng/mL should be considered to be insufficient or deficient. http://FAZUA/[facility] – MUSKOGEEnatlkidneyfoundation http://[employer]ZUA/[facility] – MUSKOGEEVitD The [employer] i[employer] Vitamin D Immunoassay detects both 25-OH Vitamin D2 and 25-OH Vitamin D3, but only a total Vitamin D concentration is reported. Blood specimen (specimen) 07/28/2014 12:03 PM EDT 07/28/2014 12:12 PM EDT Narrative Resulting Agency Comment Spec In Lab Evelia Wray MD CHEMISTRY ORDERAB LES [facility] * (ABNORMAL) Testosterone, total and free (07/28/2014 12:03 PM EDT) [facility] Testo Total 27(L) 250 - 1100 ng/dL [facility] Comment: For more information on this test, go to http://education.[employer].com/faq/ TotalTestosteroneLCMSMS Testo Free (JUNE) 4.0(L) 35.0 - 155.0 pg/mL [facility] Comment: Test Performed by [employer], [facility] [facility], [address] [place] [address] Juan Morfin M.D., Ph.D., Director of Laboratories , [place] [id number] Blood specimen (specimen) 07/28/2014 12:03 PM EDT 07/28/2014 1:17 PM EDT Narrative Resulting Agency Comment Spec In Lab Evelia Wray MD LAB SEND OUT KATHRYN CINTRON WILLY LEON?KAVITHA * (ABNORMAL) Prolactin (07/28/2014 12:03 PM EDT) Prolactin 108.2(H) 4.0 - 15.2 ng/mL [facility] MILLENNIUM Blood specimen (specimen) 07/28/2014 12:03 PM EDT 07/28/2014 12:12 PM EDT Narrative Resulting Agency Comment Spec In Lab Evelia Wray MD CHEMISTRY ORDERAB LES Performing Organization Address City/[facility]/ZIP Co de Phone Number WILLY KAUR documented in this encounter Visit Diagnoses Diagnosis Hypogonadism in male Vitamin D deficiency Unspecified vitamin D deficiency documented in this encounter Care Teams Admissions Manager Rn Relationship Specialty Start Date End Date Татьяна Koehler PA [address] [place] [address] PCP - General 04/12/13 10/11/19 documented as of this encounter
--- OUTSIDE RECORDS SUMMARY | 2023-10-07 20:53 | XMS_ITS | Encounter Summary ---
Author Organization [facility] [place] [address] Care Team Providers Care Digital Sales Representative Name Role Phone GalejessicaТатьяна fang Mariama DEGROOT Primary Care Provider +1- [phone] Encounter Details Date Type Department Care Team ([facility] st Contact Info) Description 02/21/2016 Telephone [place] [address] Lucero Montanez LPN Social History Tobacco Use [...] Telephone Encounter - Lucero Montanez LPN - 03/06/2016 3:40 PM EST Call from patient asking if Dr Durand has denied on testosterone Rx. Per patient he would prefer to try Androderm patch before Axiron which are the preferred by insurance. * Telephone Encounter - Lucero Montanez LPN - 02/26/2016 11:41 AM EST Patient is asking about PA for Androgel. Patient was told it was denied and are waiting for response from Dr Durand for alternate medication. * Telephone Encounter - Lucero Montanez LPN - 02/21/2016 1:53 PM EST R/c to [facility]. PA for Androgel was denied. Message is being sent to Dr Durand regarding response. Pharmacist Carrillo was asked not to delete Rx until we have a response from Dr Durand regarding alternate meds. documented in this encounter Plan of Treatment Not on file documented as of this encounter Visit Diagnoses Not on filedocumented in this encounter Care Teams Digital Sales Representative Relationship Specialty Start Date End Date Татьяна Koehler PA [address] [place] [address] PCP - General 04/12/13 10/11/19 documented as of this encounter
--- OUTSIDE RECORDS SUMMARY | 2023-10-07 20:53 | XMS_ITS | Encounter Summary ---
Author Organization [facility] [place] [address] Care Team Providers Care Petroleum Engineering Teacher Name Role Phone Татьяна Koehler Primary Care Provider +1- [phone] Encounter Details Date Type Department Care Team ([facility] st Contact Info) Description 07/04/2013 Telephone [place] [address] Lucero Montanez LPN Social History Tobacco Use [...] Telephone Encounter - Lucero Montanez LPN - 07/04/2013 3:30 PM EDT Returning call to patient who is asking if anyone from endocrinology had tried to reach him. Call from [facility] phone number but no message left. Call transferred to sales secretary * Telephone Encounter - Lucero Montanez LPN - 07/04/2013 1:24 PM EDT Returning call to patient.Not at home message left with son Darvin for patient to return my call. documented in this encounter Plan of Treatment Not on file documented as of this encounter Visit Diagnoses Not on filedocumented in this encounter Care Teams Petroleum Engineering Teacher Relationship Specialty Start Date End Date Татьяна Koehler PA [address] [place] [address] PCP - General 04/12/13 10/11/19 documented as of this encounter
--- OUTSIDE RECORDS SUMMARY | 2023-10-07 20:53 | XMS_ITS | Encounter Summary ---
Author Organization [facility] Address [facility] [place] [address] Care Team Providers Care Hydraulic Engineer Name Role Phone Татьяна Koehler Primary Care Provider +1- [phone] Encounter Details Date Type Department Care Team ([facility] st Contact Info) Description 01/11/2018 Orders Only Weight and Wellness at [facility] [address] [place] [address] Carolynn Arnold MD [facility] [place] [address] Social History Tobacco Use Types Packs/Day Years [...] on filedocumented in this encounter Care Teams Hydraulic Engineer Relationship Specialty Start Date End Date Татьяна Koehler PA [address] [place] [address] PCP - General 04/12/13 10/11/19 documented as of this encounter
--- OUTSIDE RECORDS SUMMARY | 2023-10-07 20:53 | XMS_ITS | Encounter Summary ---
Author Organization [facility] [place] [address] Care Team Providers Care Broker In Charge Name Role Phone Татьяна Koehler Primary Care Provider +1- [phone] Reason for Visit * Reason Onset Date Comments Other 11/23/2013 results Encounter Details Date Type Department Care Team (Late st Contact Info) Description 11/23/2013 [place] [address] Carlene Vasquez RN Other (results) Social History Tobacco Use Types Packs/Day Years [...] encounter Miscellaneous Notes * Telephone Encounter - Carlene Vasquez RN - 11/23/2013 1:15 PM EDT Darvin called and left message requesting xray results. Specifically he mentioned having a test to see if one leg was shorter than the other to see if he needs a lift for his shoes. documented in this encounter Plan of Treatment Not on file documented as of this encounter Visit Diagnoses Not on filedocumented in this encounter Care Teams Broker In Charge Relationship Specialty Start Date End Date Татьяна Koehler PA [address] [place] [address] PCP - General 04/12/13 10/11/19 documented as of this encounter
--- OUTSIDE RECORDS SUMMARY | 2023-10-07 20:53 | XMS_ITS | Encounter Summary ---
Author Organization [facility] Address [facility] Freya wallerlakshmi [place] [id number] Care Team Providers Care Jig Builder Helper Name Role Phone Татьяна Koehler Primary Care Provider [phone] Reason for Referral * Consultation (Routine) - Closed Specialty Diagnoses / Procedures Referred By Mary wright Referred To Contact Weight and Wellness Diagnoses Morbid obesity Depression, unspecified depression type Hermelinda Graham APRN [facility] [place] [address] Ana M Vaz, PhD [facility] [address] [place] [address] Referral ID Status Reason Start Date Expiration Date V isits Requested Visits Authorized [id number] Closed Consult, Test & Treat 11/12/2017 11/12/2018 1 1 Encounter Details Date Type Department Care Team (Latest Contact Info) Description 11/05/2017 Multidisciplinary Ca re Committee [place] [address] Hermelinda Graham APRN [facility] [place] [address] Morbid obesity; Depression, unspecified depression type Social History Tobacco Use Types Packs/Day Years [...] encounter Progress Notes * Hermelinda Graham - 11/05/2017 6:41 AM EDT BARIATRIC SURGERY PROGRAM CASE REVIEW Darvin Sanz is a 46 y.o. year-old male. His primary care physician is ZANE Ulloa. Bariatric Surgery Program introductory meeting attendance: + Evaluation by a member of the [facility] [place] previously: no Case presentation by: Dr Hung Staff present at today's meeting: Saadia Hung MD, Kosher Butcher, Krishna Khan MD, Shanita Hurley MD, Bin Price MD, Opal Delgado, MS RD, Rosy Graham APRN, Jason HERNÁNDEZ, Ana M Vaz, PhD Reason for presentation: concerns regarding severe depression, as noted in recent note by therapist Patient Active Problem List Diagnosis Code ??? [...] SURGERY ??? ORTHOPEDIC SURGERY Plan of care: Referral to [facility] Behavioral health prior to proceeding further documented in this encounter Plan of Treatment Scheduled Referrals Name Type Priority Associated Diagnoses Orde r Schedule Referral to [facility] Outpatient Referral Routine Morbid obesity Depression, unspecified depression type Ordered: 11/12/2017 documented as of this encounter Visit Diagnoses Diagnosis Morbid obesity Depression, unspecified depression type documented in this encounter Care Teams Jig Builder Helper Relationship Specialty Start Date End Date Татьяна Koehler PA [address] [place] [address] PCP - General 04/12/13 10/11/19 documented as of this encounter
--- OUTSIDE RECORDS SUMMARY | 2023-10-07 20:53 | XMS_ITS | Encounter Summary ---
Author Organization [facility] [place] [address] Care Team Providers Care Matcher Leather Parts Name Role Phone GalejessicaТатьяна fang Mariama DEGROOT Primary Care Provider [phone] Encounter Details Date Type Department Care Team ([facility] st Contact Info) Description 07/31/2017 Telephone [place] [phone] Jayashree Wan, RANDOLPH Social History Tobacco Use Types Packs/Day Years [...] Telephone Encounter - Lucero Montanez LPN - 08/04/2017 12:57 PM EDT R/c to patient who was advised that school secretary who does the PA's is off this week will forward message with need of PA to Deana Luna who is covering PA this week. * Telephone Encounter - Jayashree Wan RN - 07/31/2017 4:01 PM EDT Patient called triage saying that he could not refill his testosterone and thought he needed a PA done. Call to [facility]- medication does need a PA to be covered. documented in this encounter Plan of Treatment Not on file documented as of this encounter Visit Diagnoses Not on filedocumented in this encounter Care Teams Matcher Leather Parts Relationship Specialty Start Date End Date Татьяна Koehler PA [address] [place] [address] PCP - General 04/12/13 10/11/19 documented as of this encounter
--- OUTSIDE RECORDS SUMMARY | 2023-10-07 20:54 | XMS_ITS | Encounter Summary ---
Author Organization [facility] Address [address] [place] [address] Care Team Providers Care Fire Alarm Installer Name Role Phone Migdalia Mtz MD Primary Care Provider [phone] Linwood Sanchez MD Unavailable [phone] Encounter Details Date Type Department Care Team (Late st Contact Info) Description 05/29/2021 Lab Requisition [facility] Pathology & Laboratory Medicine - [facility] [address], [place] [id number] Outr Resulting Lab, Provider Social History Tobacco Use Types Packs/Day Years Used Date Smoking Tobacco: Never Assessed Interpersonal Safety Answer Date Record ed Physically Hurt Never 09/25/2019 Verbally Threaten Not on file 09/25/2019 Sex and Gender Information Value Date Recorded Sex Assigned at Not on file Gender Identity Male 03/24/2019 16:11 EST Sexual Orientation Not on file documented as of this encounter Plan of Treatment Not on file documented as of this encounter Procedures Procedure Name Priority Date/Time Associated Diagnosis Comments INSULIN Routine 05/29/2021 11:20 EDT documented in this encounter Results * (ABNORMAL) INSULIN (05/29/2021 11:20 EDT) Insulin 50.7(H) <29.0 uIU/mL 05/30/2021 9:00 EDT [facility] Comment: Displayed Reference Range applies to fasting specimens only. Blood VENOUS BLOOD / Unknown 05/29/2021 11:20 EDT 05/29/2021 21:08 EDT Provider Outr Resulting Lab CHEMISTRY & BLOOD GAS ORDERABLES [facility] [address] [place] [address] documented in this encounter Visit Diagnoses Not on filedocumented in this encounter Care Teams Fire Alarm Installer Relationship Specialty Start Date End Date Migdalia Mtz MD [address] [place] [phone] PCP - General 12/29/14 Linwood Sanchez MD [address] [place] [address] [address] [place] [phone] Cardiovascular Disease 01/29/21 documented as of this encounter
--- OUTSIDE RECORDS SUMMARY | 2023-10-07 20:54 | XMS_ITS | Encounter Summary ---
Author Organization [facility] Address [address] [place] [address] Care Team Providers Care Sports Teacher Name Role Phone Migdalia Mtz MD Primary Care Provider [phone] Encounter Details Date Type Department Care Team (Latest Contact Info) Description 04/02/2016 15:45 EST - 04/02/2016 15:59 EST Hospital Encounter [address] [address] Michael Saucedo PA-C [address] [place] [address] Unknown, Provider, Discharge Disposition: Home or Self Care Social History Tobacco Use Types Packs/Day Years Used Date Smoking Tobacco: Never Assessed Sex and Gender Information Value Date Recorded Sex Assigned at Not on file Gender Identity Male 03/24/2019 16:11 EST Sexual Orientation Not on file documented as of this encounter Discharge Disposition Disposition Code Departure Means Destination Home or Self Care documented in this encounter Plan of Treatment Not on file documented as of this encounter Visit Diagnoses Not on filedocumented in this encounter Care Teams Sports Teacher Relationship Specialty Start Date End Date Migdalia Mtz MD [address] [place] [phone] PCP - General 12/29/14 documented as of this encounter
--- OUTSIDE RECORDS SUMMARY | 2023-10-07 20:54 | XMS_ITS | Encounter Summary ---
Author Organization [facility] Address [address] [place] [address] Care Team Providers Care Car Body Inspector Name Role Phone Migdalia Mtz MD Primary Care Provider Encounter Details Date Type Department Care Team (Latest Contact Info) Description 09/27/2015 8:51 EDT - 09/27/2015 23:59 EDT Hospital Encounter [address] [address] Unknown, Provider, Discharge Disposition: Auto Discharge Social History Tobacco Use Types Packs/Day Years Used Date Smoking Tobacco: Never Assessed Sex and Gender Information Value Date Recorded Sex Assigned at Not on file Gender Identity Male 03/24/2019 16:11 EST Sexual Orientation Not on file documented as of this encounter Discharge Disposition Disposition Code Departure Means Destination Auto Discharge Home documented in this encounter Plan of Treatment Not on file documented as of this encounter Visit Diagnoses Not on filedocumented in this encounter Care Teams Car Body Inspector Relationship Specialty Start Date End Date Migdalia Mtz MD [address] [place] [phone] PCP - General 12/29/14 documented as of this encounter
--- OUTSIDE RECORDS SUMMARY | 2023-10-07 20:54 | XMS_ITS | Encounter Summary ---
Author Organization [facility] Address [address] [place] [address] Care Team Providers Care Vice President Residential Solar Sales Name Role Phone Migdalia Mtz MD Primary Care Provider [phone] Linwood Sanchez MD Unavailable [phone] Encounter Details Date Type Department Care Team (Late st Contact Info) Description 11/29/2020 Lab Requisition [facility] Pathology & Laboratory Medicine - [address] [phone] Outr Resulting Lab, Provider Social History Tobacco [...] Priority Date/Time Associated Diagnosis Comments PROLACTIN Routine 11/28/2020 14:45 EDT documented in this encounter Results * PROLACTIN (11/28/2020 14:45 EDT) Prolactin 15.8 2.1 - 17.7 ng/mL 11/29/2020 19:35 EDT [facility] Blood VENOUS BLOOD / Unknown 11/28/2020 14:45 EDT 11/29/2020 16:53 EDT Provider Outr Resulting Lab CHEMISTRY & BLOOD GAS ORDERABLES [facility] [address] [place] [address] documented in this encounter Visit Diagnoses Not on filedocumented in this encounter Care Teams Vice President Residential Solar Sales Relationship Specialty Start Date End Date Migdalia Mtz MD [address] [place] [phone] PCP - General 12/29/14 Linwood Sanchez MD [address] [place] [address] [address] [place] [address] Cardiovascular Disease 01/29/21 documented as of this encounter
--- OUTSIDE RECORDS SUMMARY | 2023-10-07 20:54 | XMS_ITS | Encounter Summary ---
Author [facility] [place] [address] Care Team Providers Care Rag Sorter And Cutter Name Role Phone Jayashree Holly MD Primary Care Provider [phone] Reason for Visit * Reason Comments Medication Refill Encounter Details Date Type Department Care Team ([facility] st Contact Info) Description 10/26/2011 Ref[place] [address] iLv Andino MD [facility] [place] [address] Social History Tobacco Use Types Packs/Day Years [...] on filedocumented in this encounter Care Teams Rag Sorter And Cutter Relationship Specialty Start Date End Date Jayashree Holly MD [facility] [address] [facility] [place] [address] PCP - General 09/20/10 04/11/13 documented as of this encounter
--- OUTSIDE RECORDS SUMMARY | 2023-10-07 20:54 | XMS_ITS | Encounter Summary ---
Author Organization [facility] Address [address] [place] [address] Care Team Providers Care Assistant Operations Manager Name Role Phone Migdalia Mtz MD Primary Care Provider [phone] Encounter Details Date Type Department Care Team (Latest Contact Info) Description 09/27/2015 12:15 EDT - 09/27/2015 23:59 EDT Hospital Encounter [address] [address] Unknown, Provider, Discharge Disposition: Home or Self Care Social History Tobacco Use Types Packs/Day Years Used Date Smoking Tobacco: Never Assessed Sex and Gender Information Value Date Recorded Sex Assigned at Not on file Gender Identity Male 03/24/2019 16:11 EST Sexual Orientation Not on file documented as of this encounter Discharge Disposition Disposition Code Departure Means Destination Home or Self Long Term documented in this encounter Plan of Treatment Not on file documented as of this encounter Visit Diagnoses Not on filedocumented in this encounter Care Teams Assistant Operations Manager Relationship Specialty Start Date End Date Migdalia Mtz MD [address] [place] [phone] PCP - General 12/29/14 documented as of this encounter
--- OUTSIDE RECORDS SUMMARY | 2023-10-07 20:54 | XMS_ITS | Encounter Summary ---
Author Organization [facility] Address [address] [place] [address] Care Team Providers Care Seasonal Recruiter Name Role Phone Migdalia Mtz MD Primary Care Provider [phone] Linwood Sanchez MD Unavailable [phone] Reason for Visit * Reason Comments Other Encounter Details Date Type Department Care Team ([facility] Contact Info) Description 04/18/2021 Refill [facility] Cardiology Clinic [address] [place] [address] Linwood Sanchez MD [address] [facility] [address] [place] [address] Other Social History Tobacco Use Types Packs/Day Years Used Date Smoking Tobacco: Never Assessed Interpersonal Safety Answer Date Record ed Physically Hurt Never 09/25/2019 Verbally Threaten Not on file 09/25/2019 Sex and Gender Information Value Date Recorded Sex Assigned at Not on file Gender Identity Male 03/24/2019 16:11 EST Sexual Orientation Not on file documented as of this encounter Ordered Prescriptions Prescription Sig Dispensed Refills Start Date End Da te atorvastatin (LIPITOR) 20 mg tablet TAKE ONE TABLET BY MOUTH EVERY DAY 90 Tablet 04/18/2021 07/29/2021 documented in this encounter Plan of Treatment Not on file documented as of this encounter Visit Diagnoses Not on filedocumented in this encounter Discontinued Medications Medication Sig Discontinue Reason Start Date End Da te atorvastatin (LIPITOR) 20 mg tablet TAKE ONE TABLET BY MOUTH EVERY DAY 01/11/2021 04/18/2021 documented as of this encounter Care Teams Seasonal Recruiter Relationship Specialty Start Date End Date Migdalia Mtz MD [address] [place] [phone] PCP - General 12/29/14 Linwood Sanchez MD [address] [place] [phone] Cardiovascular Disease 01/29/21 documented as of this encounter
--- OUTSIDE RECORDS SUMMARY | 2023-10-07 20:54 | XMS_ITS | Encounter Summary ---
Author Organization [facility] Address [address] [place] [address] Care Team Providers Care Methods Engineer Name Role Phone Migdalia Mtz MD Primary Care Provider [phone] Liwnood Sanchez MD Unavailable [phone] Reason for Visit * Reason Comments Other Encounter Details Date Type Department Care Team ([facility] st Contact Info) Description 07/27/2021 Refill [facility] Cardiology Clinic [address] [place] [address] Linwood Sanchez MD [address] [facility] [address] [place] [address] Other Social History Tobacco Use [...] TABLET BY MOUTH EVERY DAY 90 Tablet 3 07/29/2021 documented in this encounter Plan of Treatment Not on file documented as of this encounter Visit Diagnoses Not on filedocumented in this encounter Discontinued Medications Medication Sig Discontinue Reason Start Date End Da te atorvastatin (LIPITOR) 20 mg tablet TAKE ONE TABLET BY MOUTH EVERY DAY 04/18/2021 07/29/2021 documented as of this encounter Care Teams Methods Engineer Relationship Specialty Start Date End Date Migdalia Mtz MD [address] [place] [phone] PCP - General 12/29/14 Linwood Sanchez MD [address] [place] [address] [phone] Cardiovascular Disease 01/29/21 documented as of this encounter
--- OUTSIDE RECORDS SUMMARY | 2023-10-07 20:54 | XMS_ITS | Encounter Summary ---
Author Organization Count Includes [facility] Address [facility] [place] [address] Care Team Providers Care Senior Nurse Manager Name Role Phone Jayashree Holly MD Primary Care Provider [phone] Encounter Details Date Type Department Care Team (Latest Contact Info) Description 09/20/2010 10:07 AM EDT - 09/20/2010 11:59 PM EDT Hospital Encounter MRI at [facility] [place] [phone] CLINIC, Jayashree Neri MD [address] [place] [address] [place] [id number] Discharge Disposition: Home Social History Tobacco Use [...] - Inhaled Oxygen Concentration - - Weight 180.1 kg (397 lb) 09/20/2010 11:23 AM EDT Height - - Body Mass Index - - documented in this encounter Medications at Time of Discharge Medication Sig Dispensed Refills Start Date End Date ACETAMINOPHEN (TYLENOL ORAL) 08/03/2003 09/22/2013 omeprazole (PRILOSEC) 20 mg capsule 08/03/2003 12/23/2010 citalopram (CELEXA) 40 mg tablet 08/03/2003 11/23/2020 testosterone (ANDROGEL) 1 %(50 mg/5 gram) GlPk 1 Packet(s) apply to skin, TD, QD 08/03/2003 12/23/2010 traZODone (DESYREL) 50 mg tablet 08/03/2003 12/23/2010 topiramate (TOPAMAX) 25 mg tablet 08/03/2003 12/23/2010 PROPRANOLOL HCL (PROPRANOLOL ORAL) 08/03/2003 1 documented as of this encounter Miscellaneous Notes * Miscellaneous - Provider, Scanning - 10/03/2010 11:46 AM EDT documented in this encounter Plan of Treatment Not on file documented as of this encounter Procedures Procedure Name Priority Date/Time Associated Diagnosis Comments MRI BRAIN WWO CONTRAST (GENERIC) Routine 09/20/2010 11:53 AM EDT documented in this encounter Results * MRI BRAIN WITH/WO CONTRAST (09/20/2010 11:53 AM EDT) Anatomical Region Laterality Modality Head Magnetic Resonan ce 09/20/2010 11:5 3 AM EDT Impressions 09/23/2010 1:53 PM EDT IMPRESSION: ?? Normal brain MRI. ? Narrative 09/23/2010 1:53 PM EDT MRI OF THE BRAIN WITH AND WITHOUT CONTRAST: HISTORY: ??Abnormal labs and headaches, question brain tumor. ?? TECHNIQUE: ??MRI of the brain performed prior to and following the intravenous administration of 20 mL of MAGNEVIST. CONTRAST: ??20 mL of Magnevist. COMPARISON: ??No priors available for comparison. FINDINGS: ??The ventricles are normal in size and contour. ??There is no mass, mass effect, or shift. ??There is no abnormal enhancement after the administration of contrast material. ??The pituitary gland is normal in appearance. ??There is no restricted diffusion to suggest acute infarct. ??The major intracranial flow voids are normal in appearance. ??A small amount of fluid is present in the maxillary sinuses and in the sphenoid sinus on the left. ?? Procedure Note Tyson Aaron MD - 09/23/2010 MRI OF THE BRAIN WITH AND WITHOUT CONTRAST: HISTORY: Abnormal labs and headaches, question brain tumor. TECHNIQUE: MRI of the brain performed prior to and following theintravenous administration of 20 mL of MAGNEVIST. CONTRAST: 20 mL of Magnevist. COMPARISON: No priors available for comparison. FINDINGS: The ventricles are normal in size and contour. There is nomass, mass effect, or shift. There is no abnormal enhancement after the administration of contrast material. The pituitary gland is normal in appearance. There is no restricted diffusion to suggest acute infarct.The major intracranial flow voids are normal in appearance. A small amount of fluid is present in the maxillary sinuses and in the sphenoid sinus on the left. IMPRESSION IMPRESSION: Normal brain MRI. Jayashree Holly MD IMG MRI ORDERABLES documented in this encounter Visit Diagnoses Not on filedocumented in this encounter Administered Medications Inactive Administered Medications - up to 3 most recent administrations Medication Order MAR Action Action Date Dose Rate Site gadopentetate dimeglumine (MAGNEVIST) injection 17 mL 17 mL (0.2 mL/kg/dose ? 82.6 kg), Intravenous, ONCE PRN, Per Protocol, Starting on Thu09/20/10 at 0612, 1 dose, Until Thu09/20/10 at 1133 Given 09/20/2010 11:33 AM EDT 20 mLs documented in this encounter Care Teams Senior Nurse Manager Relationship Specialty Start Date End Date Jayashree Holly MD [facility] [address] [place] [address] [place] [address] PCP - General 09/20/10 04/11/13 documented as of this encounter
--- OUTSIDE RECORDS SUMMARY | 2023-10-07 20:54 | XMS_ITS | Encounter Summary ---
Author Organization [facility] Address [address] [place] [address] Care Team Providers Care Welcome Hostess Name Role Phone Migdalia Mtz MD Primary Care Provider Linwood Sanchez MD Unavailable [phone] Reason for Visit * Reason Comments Other Encounter Details Date Type Department Care Team (Late st Contact Info) Description 09/08/[address] [facility] Cardiology Clinic [address] [place] [address] Linwood Sanchez MD [address] [place] [phone] Other Social History Tobacco Use Types [...] on filedocumented in this encounter Care Teams Welcome Hostess Relationship Specialty Start Date End Date Migdalia Mtz MD [address] [phone] PCP - General 12/29/14 Linwood Sanchez MD [address] [place] [phone] Cardiovascular Disease 01/29/21 documented as of this encounter
--- OUTSIDE RECORDS SUMMARY | 2023-10-07 20:54 | XMS_ITS | Encounter Summary ---
Author Organization [facility] Address [address] [place] [address] Care Team Providers Care Teacher Education Instructor Name Role Phone Migdalia Mtz MD Primary Care Provider Reason for Visit * Reason Comments Cardiomyopathy Encounter Details Date Type Department Care Team (Latest Contact Info) Description 05/18/2019 10:45 EDT Telemedicine [facility] - [facility] [address] [place] [address] Florida Batista MD [address] [facility] [address] [place] [address] Nonischemic cardiomyopathy (HCC-CMS) (Primary Dx); Atypical chest pain; Left heart failure with left ejection fraction 41-49 percent (HCC-CMS); Atherosclerosis of [place] coronary artery of [place] heart without angina pectoris; Mixed hyperlipidemia; Smoker Social History Tobacco Use Types Packs/Day Years Used Date Smoking Tobacco: Never Assessed Sex and Gender Information Value Date Recorded Sex Assigned at Not on file Gender Identity Male 03/24/2019 16:11 EST Sexual Orientation Not on file documented as of this encounter Ordered Prescriptions Prescription Sig Dispensed Refills Start Date End Da te isosorbide mononitrate (IMDUR) 30 mg CR tablet Take 1 Tab by mouth daily for 30 days. 30 Tab 11 05/18/2019 05/24/2020 documented in this encounter Progress Notes * Florida Batista MD - 05/18/2019 1045 EDT [facility] CARDIOLOGY TELEMEDICINE VISIT Date of Service: 05/18/2019 Reason for Visit: Nonischemic cardiomyopathy (HCC-CMS) [I42.8] Primary Care Provider: Migdalia Mtz SUBJECTIVE Patient ID: Darvin Sanz, 1970 History of Present Illness Synopsis: 48 y.o. year-old male with tobacco dependence, bipolar disorder, PUD status post GI bleed, obstructive sleep apnea on BiPAP, hyperlipidemia and coronary artery disease. February 2018 on and off nonexertional chest pain. Positive stress test. Yet, no flow-limiting disease on cardiac catheterization. EF 45%. Interim History: Patient continues to experience on and off chest pain. There are no clearly identifiable triggers: It is non-positional, it is not related to food intake, it is not related to breathing, it is not triggered by cold weather or emotional stress. Sometimes it is related to exertion. Pain can last between 10 minutes to several hours. It is relieved by nitroglycerin. Patient describes his symptoms as not having changed. He has resumed smoking. He is rather sedentary. Patient denies SOB, PND, edema, palpitations, syncope, claudication, focal deficits, bleeding, GI or symptoms. ROS: A 10 point review of systems performed; pertinent findings as mentioned above, all others negative PFSH, Medications and Allergies: reviewed. Cardiac Medications: Aspirin 81 mg daily Atorvastatin 20 mg nightly Amlodipine 5 mg daily Chlorthalidone 50 mg daily Lasix as needed Allergies: Ibuprofen Social History: Smoker. No alcohol. No stimulants other than methylphenidate. Family History: No premature coronary artery disease. OBJECTIVE Vital Signs: There were no vitals taken for this visit. Examination Physical exam findings patient can observe: None. Data Available records including laboratory and cardiac studies reviewed; pertinent findings are as follows: Lab Results Component Value Date CHOL 137 09/27/2018 HDL 31 (L) 09/27/2018 LDL 81 09/27/2018 TRIG 123 09/27/2018 Echocardiogram March 2018: EF 45%, apical akinesis, no thrombus. Dilated RV with reduced function. ASSESSMENT 1. Nonischemic cardiomyopathy (HCC-CMS) 2. Atypical chest pain 3. Left heart failure with left ejection fraction 41-49 percent (HCC-CMS) 4. Atherosclerosis of [place] coronary artery of [place] heart without angina pectoris 5. Mixed hyperlipidemia 6. Smoker Chest pain is somewhat atypical. Cardiac catheterization did not demonstrate flow-limiting coronaryartery disease. Need to consider microvascular disease and vasospasm. Given response to nitroglycerin will start Imdur. Etiology of cardiomyopathy unclear. We can always consider cardiac MRI for further evaluation. Subjectively no evidence of heart failure. PLAN ??? Continue amlodipine and 5 mg daily ??? Start Imdur 30 mg daily ??? Continue atorvastatin 20 mg daily ??? Continue aspirin 81 mg daily next ??? Continue chlorthalidone 50 mg daily ??? Quit smoking Follow-up 3 months Patient initiated phone contact with the office Yes, Is an established patient (parent, guardian) yes, E/M provided within previous 7 days for same Assessment yes, Anticipate E/M service within 24hrsor next available urgent appointment no, Time spent in medical discussion 01-12 Florida Batista MD, PhD Patient's Medications New Prescriptions ISOSORBIDE MONONITRATE (IMDUR) 30 MG CR TABLET Take 1 Tab by mouth daily for 30 days. Previous Medications AMLODIPINE (NORVASC) 5 MG TABLET as directed orally once a day ASPIRIN 81 MG EC TABLET Take 81 mg by mouth daily. ATORVASTATIN (LIPITOR) 20 MG TABLET CABERGOLINE (DOSTINEX) 0.5 MG TABLET CELECOXIB (CELEBREX) 50 MG CAPSULE 1 cap(s) orally once a day CHLORTHALIDONE (HYGROTEN) 50 MG TABLET CITALOPRAM (CELEXA) 10 MG TABLET 1 tab(s) orally once a day DIAZEPAM (VALIUM) 10 MG TABLET TAKE ONE TABLET BY MOUTH THREE TIMES A DAY NEEDED FOR MUSCLE SPASM ESCITALOPRAM OXALATE (LEXAPRO) 20 MG TABLET FUROSEMIDE (LASIX) 20 MG TABLET 3 tab(s) orally once a day as needed for edema HYDROCODONE-ACETAMINOPHEN (NORCO) 10-325 MG TABLET LORATADINE (CLARITIN) 10 MG TABLET 1 orally every day LURASIDONE (LATUDA) 60 MG TABLET 1 tab(s) orally once a day METHYLPHENIDATE HCL (RITALIN;METHYLIN) 20 MG TABLET Take 20 mg by mouth 3 times daily. PREGABALIN (LYRICA) 100 MG CAPSULE 1 cap(s) orally 2 times a day SERTRALINE (ZOLOFT) 25 MG TABLET 1 tab(s) orally once a day TESTOSTERONE CYPIONATE (DEPO-TESTOSTERONE) 200 MG/ML INJECTION XOPENEX HFA 45 MCG/ACTUATION INHALER Modified Medications No medications on file Discontinued Medications No medications on file * José Castellanos - 05/18/2019 1045 EDT appt sched with pt for 08/23/19; 800 arrival. Televisit note faxed to PCP documented in this encounter Miscellaneous Notes * Addendum Note - Florida Batista MD - 05/18/2019 1045 EDTAddended by: [place] BATISTA on: 05/18/2019 16:21 Modules accepted: Level of Service documented in this encounter Plan of Treatment Not on file documented as of this encounter Visit Diagnoses Diagnosis Nonischemic cardiomyopathy (HCC-CMS)- Primary Other primary cardiomyopathies Atypical chest pain Other chest pain Left heart failure with left ejection fraction 41-49 percent (HCC-CMS) Left heart failure Atherosclerosis of [place] coronary artery of [place] heart without angina pectoris Mixed hyperlipidemia Smoker Tobacco use disorder documented in this encounter Historical Medications * This list may reflect changes made after this encounter. Medication Sig Dispensed Refills Start Date End Date celecoxib (CELEBREX) 50 mg capsule 1 cap(s) orally once a day escitalopram oxalate (LEXAPRO) 20 mg tablet 03/20/2019 pregabalin (LYRICA) 100 mg capsule 1 cap(s) orally 2 times a day XOPENEX HFA 45 mcg/actuation inhaler 03/02/2019 HYDROcodone-acetaminophe n (NORCO) 10-325 mg tablet 03/04/2019 cabergoline (DOSTINEX) 0.5 mg tablet 02/15/2019 chlorthalidone (HYGROTEN) 50 mg tablet 02/15/2019 sertraline (ZOLOFT) 25 mg tablet 1 tab(s) orally once a day testosterone cypionate (DEPO-TESTOSTERONE) 200 mg/mL injection 03/24/2019 lurasidone (LATUDA) 60 mg tablet 1 tab(s) orally once a day methylphenidate HCl (RITALIN;METHYLIN) 20 mg tablet Take 20 mg by mouth 3 times daily. 03/20/2019 diazePAM (VALIUM) 10 mg tablet TAKE ONE TABLET BY MOUTH THREE TIMES A DAY NEEDED FOR MUSCLE SPASM 03/04/2019 furosemide (LASIX) 20 mg tablet 3 tab(s) orally once a day as needed for edema loratadine (CLARITIN) 10 mg tablet 1 orally every day citalopram (CELEXA) 10 mg tablet 1 tab(s) orally once a day amLODIPine (NORVASC) 5 mg tablet as directed orally once a day 09/27/2018 10/04/2020 atorvastatin (LIPITOR) 20 mg tablet 03/05/2019 11/22/2019 aspirin 81 mg EC tablet Take 81 mg by mouth daily. 03/20/2019 06/06/2019 added in this encounter Care Teams Teacher Education Instructor Relationship Specialty Start Date End Date Migdalia Mtz MD [address] [place] [phone] PCP - General 12/29/14 documented as of this encounter
--- OUTSIDE RECORDS SUMMARY | 2023-10-07 20:54 | XMS_ITS | Encounter Summary ---
Author Organization [facility] Address [address] [place] [address] Care Team Providers Care Education Intern Name Role Phone Migdalia Mtz MD Primary Care Provider [phone] Encounter Details Date Type Department Care Team (Latest Contact Info) Description 09/18/2016 9:46 EDT - 09/18/2016 23:59 EDT Hospital Encounter [address] [address] Unknown, Provider, Discharge Disposition: Home or Self Care Social History Tobacco Use Types Packs/Day Years Used Date Smoking Tobacco: Never Assessed Sex and Gender Information Value Date Recorded Sex Assigned at Not on file Gender Identity Male 03/24/2019 16:11 EST Sexual Orientation Not on file documented as of this encounter Discharge Disposition Disposition Code Departure Means Destination Home or Self [facility] documented in this encounter Plan of Treatment Not on file documented as of this encounter Visit Diagnoses Not on filedocumented in this encounter Care Teams Education Intern Relationship Specialty Start Date End Date Migdalia Mtz MD [address] [place] [phone] PCP - General 12/29/14 documented as of this encounter
--- OUTSIDE RECORDS SUMMARY | 2023-10-07 20:54 | XMS_ITS | Encounter Summary ---
Author Organization [facility] [place]rey[place] [address] Care Team Providers Care Paralegal Internship Name Role Phone Jayashree Foster MD Primary Care Provider [phone] Reason for Visit * Reason Comments Hypogonadism Encounter Details Date Type Department Care Team ([facility] Contact Info) Description 12/23/2010 11:00 AM EDT Office [place] [id number] Liv Andino MD [facility] [place] [address] Hypogonadal obesity; Obesity; Fatigue; Pre-diabetes Discharge Disposition: Home Social History Tobacco Use Types Packs/Day Years Used Date Smoking Tobacco: Every Day Cigarettes Smokeless Tobacco: Never Tobacco Cessation:Ready to Q [...] Sign Reading Time Taken Comments Blood Pressure 161/93 12/23/2010 11:13 AM EDT Pulse 90 12/23/2010 11:13 AM EDT Temperature - - Respiratory Rate - - Oxygen Saturation - - Inhaled Oxygen Concentration - - Weight 181 kg (399 lb) 12/23/2010 11:13 AM EDT Height 177.8 cm (5' 10) 12/23/2010 11:13 AM EDT Body Mass Index 57.25 12/23/2010 11:13 AM EDT documented in this encounter Patient Instructions * Patient Instructions* Liv Andino MD - 12/23/2010 11:43 AM EDT Assessment: Darvin Sanz is a 40 y.o. year old male with longstanding hypogonadism for 10 years, most likely due to central cause as he had no previous history to suggest primary testicular failure. He had negative MRI scan of the pituitary on 09/20/10 which is good news. He used to take testosterone injections, and androgel for 1 year and quit it 2-3 months ago. Also tried Dostinex for 6 months in the past fo r some breast discharge (not galactorrhea per pt) but it did not help his testosterone levels. He is symptomatic with fatigue, wt gain with more fat but less muscle mass, ED, low libido and depression.. We will check hormonal profile today to confirm that he has central hypogonadism and see if there is any evidence of pituitary dysfunction before we start him on testosterone replacement as indicated. Recommendation: 1. Medication: Patient will start taking atenolol 100 mg qd instead of propanolol since the latter can block conversion of thyroid hormone (T4 to T3) and also add lisnopril 10 mg qd to help control his BP and ok to cont HCTZ 25 mg qd for HTN and leg swelling. If his free testosterone is low, eh may need to resume androgel. He has JOSE DE JESUS and FH of prostate cancer, so we will try to avoid testosterone injections for him. Patient was advised of proper dosage, how to take the medication properly, precautions, and possible side effects of the medication prescribed. Patient will continue all current medications, low fat/controlled carb diet and execise regularly as tolerated to keep weight down or at least stable Patient info on hypogonadism was given and explained to pt in details today. 2. Lab: check lab today for Total and free testosterone, PRL, FSH, LH, TSH, FT4, corisol, ACTH, IGF-1, 25-vitamin D, lipid profile, PSA, CMP, CBC, Fe/TIBC X-ray/Imaging studies: Already had negative MRI scan of the pituitary on 09/20/10 here. We will let patient know lab test results and adjust medication if needed during this interim. 3. RTC: Next visit in 3 months or sooner as indicated by test results. Will check Total and free testosterone, and other labs as indicated at the time (quick-draw lab so we know the result right awayat visit). documented in this encounter Progress Notes * Liv Andino MD - 12/23/2010 11:31 AM EDT Endocrinology Consultation Date of Visit: 12/23/10 Patient: Name:Darvin Sanz : 1970 Reason for Consult: Darvin Sanz is being seen in the clinic today at the request of Dr. JAYASHREE FOSTER MD for the evaluation of hypogonadism. Patient's previous record as are the lab results are reviewed. Performed by: Dr. Liv Andino MD., PhD., FACE Brief History of Present Illness: Darvin Sanz is a very pleasant 40 [...] of the pituitary on 09/20/10 was negative. Fatigue - Yes Depression - Yes Low libido - Yes Decreased energy - Yes Erectile dysfunction - Yes Poor sleeping pattern - Yes Hot flashes/sweating - Yes Decreased muscle mass/weight gain-- Yes Testes >10 cc - Yes Gynecomastia/galactorrhea or breast tenderness - Yes Loss of axillary, chest and genital hair -No ROS:(Details as shown in patient's initial visit questionaire) Constitutional: +fatigue and some cold intolerance. Endocrine: No thyroid problems. Integument: No balding, acne or oily skin. No easily bruising. Neurological:+ headache daily (pounding CORDERO). No weakness. No dizziness Eyes: No vision change ENT: +excessive thirst and increased appetite. +stuffy nose or sinus problems Cardiovascular: No chest pain or palpitations Respiratory: + cough, wheezing, shortness of breath GI: Normal appetite. No nausea, vomiting, diarrhea, constipation : No frequent urinary tract infections or polyuria. +ED and low libido Musculoskeletal: + joint aches, muscle pain. Psych: + difficulty with concentration and poor sleep. + depressed mood and anxiety PMH: HTN Chol Obesity GERD/PUD Anxiety Depression Outpatient Meds: Current outpatient prescriptions ordered prior to encounter Medication Sig Dispense Refill ??? ACETAMINOPHEN (TYLENOL ORAL) ??? citalopram (CELEXA) 40 mg tablet ??? PROPRANOLOL HCL (PROPRANOLOL ORAL) Allergy: No Known Allergies History Social History ??? Marital Status: Spouse Name: N/A Number of Children: N/A ??? Years of Education: N/A Social History Main Topics ??? Smoking status: Current Everyday Smoker -- 1.5 packs/day ??? Smokeless tobacco: None ??? Alcohol Use: None ??? Drug Use: None ??? Sexually Active: None Other Topics Concern ??? None Social History Narrative ??? None Family History: +DM, HTN, CHOL, obesity +CAD (mother, grandparents) +Prostate ca (father) +thyroid (aunt) No pituitary or endocrine tumor in the family. No hemochromatosis. PE: BP 161/93 Pulse 90 Ht 177.8 cm (5' 10) Wt 180.985 kg (399 lb) BMI 57.25 kg/m2 Appearance: Patient is very pleasant 40 y.o. years old male, very obese, clinically euthyroid, not in acute distress, accompanied by his . Skin - +++acanthosis nigricans around the nape of the neck. No abnormal striae or ecchymosis. HEENT - s/p left eye enucleation. Normal vision and visual field for his right eye. Neck - supple, no goiter or nodule, no lymphadenopathy, no carotid bruit Chest - No gynecomastia or galactorrhea, normal chest expansion, no crackles or wheeze Heart - regular rhythm, normal apical impulse, normal S1, S2 and no murmur Abdomen - soft, non-tender, no hepatosplenomegaly. Extremities - no pitting edema, normal distal pulses, no proximal muscle weakness, reflexes were normal or slightly depressed all. Assessment: Darvin Sanz is a 40 y.o. year old male with longstanding hypogonadism for 10 years, most likely due to central cause as he had no previous history to suggest primary testicular failure. He had negative MRI scan of the pituitary on 09/20/10 which is good news. He used to take testosterone injections, and androgel for 1 year and quit it 2-3 months ago as it's not working for him. Also tried Dostinex for 6 months in the past for some breast discharge (not galactorrhea per pt) but it did not help his testosterone levels. He is symptomatic with fatigue, wt gain with more fat but less muscle mass, ED, low libido and depression. We will check hormonal profile today to confirm that he has central hypogonadism and see if there is any evidence of pituitary dysfunction before we start him on testoste cresencio replacement as indicated. He also has HTN on propanolol with sub-optimal control and has evidence of insulin resistance with marked acanthosis nigricans around the nape of the neck along with severe obesity (BMI of 57). Recommendation: 1. Medication: Patient will start taking atenolol 100 mg qd instead of propanolol since the latter can block conversion of thyroid hormone (T4 to T3) and also add lisnopril 10 mg qd to help control his BP and ok to cont HCTZ 25 mg qd for HTN and leg swelling. If his free testosterone is low, he may need to resume androgel. He has JOSE DE JESUS and FH [...] weight down or at least stable Patient info on hypogonadism was given and explained to pt in details today. 2. Lab: check lab today for Total and free testosterone, PRL, FSH, LH, TSH, FT4, corisol, ACTH, IGF-1, 25-vitamin D, lipid profile, PSA, CMP, CBC, Fe/TIBC X-ray/Imaging studies: Already had negative MRI scan of the pituitary on 09/20/10 here. We will let patient know lab test results and adjust medication if needed during this interim. 3. RTC: Next visit in 3 months or sooner as indicated by test results. Will check Total and free testosterone, PRL and other labs as indicated at the time (quick-draw lab so we know the result right away at visit). We have reviewed our plan outlined above with the patient and patient verbalized understanding and is agreeable with this management. All questions were answered and most of the time was spent on counseling about pertinent medical conditions, medications adjustment including pros and cons of starting medication if indicated, the diagnostic and therapeutic decisions, and coordination of care. Thank you for allowing me to participate in the care of this very pleasant and interesting patient. Liv Andino MD, PhD, FACE CC: JAYASHREE FOSTER MD Addendum: Partial lab results after visit today showed high PRL (72.8) and pre- DM (A1c 5.9%). So, we will start him on cabergoline 0.5 mg 2x/week and metforminER 500 mg qd increasing gradually to 1500 mg/day. Office Visit on 12/23/10 (from the past 24 hour(s)) TSH Component Value Range ??? TSH 1.58 0.27 - 4.20 (mcIU/mL) T4, FREE Component Value Range ??? Free T4 1.00 0.90 - 1.60 (ng/dL) PSA Component Value Range ??? PSA 0.31 0.00 - 4.00 (ng/mL) CBC (WITH DIFF) Component Value Range ??? WBC 9.4 4.0 - 10.0 (x10(3)/mcL) ??? RBC 5.23 4.63 - 6.08 (x10(6)/mcL) ??? Hemoglobin 14.3 13.7 - 17.5 (gm/dL) ??? Hematocrit 44.0 40.0 - 51.0 (%) ??? MCV 84.1 79.0 - 92.0 (fL) ??? MCH 27.3 25.6 - 32.2 (pg) ??? MCHC 32.5 32.0 - 36.5 (gm/dL) ??? Platelets 273 145 - 370 (x10(3)/mcL) ??? RDWSD 45.4 35.0 - 46.0 (fL) ??? RDWCV 14.8 (*) 10.9 - 14.4 (%) ??? MPV 11.3 9.0 - 12.0 (fL) COMPREHENSIVE METABOLIC PANEL (NON-FASTING) Component Value Range ??? Glucose Lvl 137 60 - 199 (mg/dL) ??? BUN 11 10 - 20 (mg/dL) ??? Creatinine 0.75 (*) 0.80 - 1.50 (mg/dL) ??? Sodium 136 135 - 145 (mmol/L) ??? Potassium 3.3 (*) 3.5 - 5.0 (mmol/L) ??? Chloride 97 (*) 98 - 107 (mmol/L) ??? CO2 27 22 - 31 (mmol/L) ??? Anion Gap 12 5 - 15 (mmol/L) ??? Calcium 9.1 8.5 - 10.5 (mg/dL) ??? Total Protein 7.4 6.4 - 8.3 (gm/dL) ??? Albumin 4.0 3.2 - 5.2 (gm/dL) ??? AST 26 0 - 39 (unit/L) ??? ALT 49 0 - 55 (unit/L) ??? Alk Phos 91 40 - 120 (unit/L) ??? Total Bilirubin 0.3 0.2 - 1.3 (mg/dL) ??? Bili, Direct 0.1 0.0 - 0.3 (mg/dL) ? ? Estimated GFR >60 >=60 HEMOGLOBIN A1C Component Value Range ??? Hemoglobin A1C 5.9 4.3 - 6.1 (%) ??? Est Avg Gluc 123 (mg/dL) LIPID PANEL (FASTING) Component Value Range ? ? Chol, Total 178 <=199 (mg/dL) ? ? Triglycerides 152 (*) <=149 (mg/dL) ? ? HDL 35 (*) >=40 (mg/dL) ? ? LDL Cholesterol 113 (*) <=99 (mg/dL) ??? Chol/HDL Ratio 5.1 (ratio) PROLACTIN Component Value Range ??? Prolactin 72.8 (*) 4.0 - 15.2 (ng/mL) FOLLICLE STIMULATING HORMONE Component Value Range ??? FSH 0.7 (*) 1.5 - 12.4 (mlU/ML) LUTEINIZING HORMONE Component Value Range ??? LH 0.8 (*) 1.7 - 8.6 (mlU/ML) CORTISOL Component Value Range ??? Cortisol 7.4 (mcg/dL) A-DIFF Component Value Range ??? Neutrophils % 65.6 34.0 - 71.0 (%) ??? Neutr Abs (ANC) 6.18 1.50 - 6.30 (x10(3)/mcL) ??? Lymphocytes % 26.8 19.0 - 53.0 (%) ??? Lymphocytes Abs 2.5 1.0 - 3.6 (x10(3)/mcL) ??? Monocytes % 5.1 4.0 - 13.0 (%) ??? Monocyte Abs 0.5 0.2 - 1.0 (x10(3)/mcL) ??? Eosinophils % 2.1 0.0 - 7.0 (%) ??? Eosinophils Abs 0.2 0.0 - 0.5 (x10(3)/mcL) ??? Basophils % 0.3 0.0 - 2.0 (%) ??? Basophils Abs 0.0 0.0 - 0.2 (x10(3)/mcL) ??? Immature Gran % 0.10 0.00 - 0.66 (%) ??? Sofía Gran Abs 0.01 0.00 - 0.05 (x10(3)/mcL) Subjective: Patient ID: Darvin Sanz is a 40 y.o. male. HPI Review of Systems Objective: Physical Exam documented in this encounter Plan of Treatment Not on file documented as of this encounter Procedures Procedure Name Priority Date/Time Associated Diagnosis Comments INSULIN LIKE GF-1 Routine 12/23/2010 12: 17 PM EDT Hypogonadal obesity DIFFERENTIAL, AUTOMATED Routine 12/23/2010 12:17 PM EDT TESTOSTERONE, TOTAL AND FREE Routine 12/23/2010 12:17 PM EDT Hypogonadal obesity VITAMIN D, 25-HYDROXY Routine 12/23/2010 12:17 PM EDT Hypogonadal obesity Fatigue PROLACTIN Routine 12/23/2010 12:17 PM EDT Hypogonadal obesity ACTH Routine 12/23/2010 12:17 PM EDT Hypogonadal obesity CBC (WITH DIFF) Routine 12/23/2010 12:17 PM EDT Hypogonadal obesity Fatigue TSH Routine 12/23/2010 12:17 PM EDT Hypogonadal obesity T4, FREE Routine 12/23/2010 12:17 PM EDT Hypogonadal obesity PSA (ULTRASENSITIVE) Routine 12/23/2010 12:17 PM EDT Hypogonadal obesity HEMOGLOBIN A1C Routine 12/23/2010 12:17 PM EDT Hypogonadal obesity Obesity LUTEINIZING HORMONE Routine 12/23/2010 1 2:17 PM EDT Hypogonadal obesity FOLLICLE STIMULATING HORMONE Routine 12/23/2010 12:17 PM EDT Hypogonadal obesity CORTISOL Routine 12/23/2010 12:17 PM EDT Hypogonadal obesity LIPID PANEL (REFLEX DIRECT LDL) Routine 12/23/2010 12:17 PM EDT Hypogonadal obesity COMPREHENSIVE METABOLIC PANEL Routine 12/23/2010 12:17 PM EDT Hypogonadal obesity Fatigue documented in this encounter Results * A-DIFF (12/23/2010 12:17 PM EDT) Neutrophil % 65.6 34.0 - 71.0 % CERNER MILLENNIUM Neutrophil Absolute 6.18 1.50 - 6.30 x10(3)/mcL CERNER MILLENNIUM Lymph % 26.8 19.0 - 53.0 % CERNER MILLENNIUM Lymphocytes Abs 2.5 1.0 - 3.6 x10(3)/mcL CERNER MILLENNIUM Monocyte % 5.1 4.0 - 13.0 % CERNER MILLENNIUM Monocyte Abs 0.5 0.2 - 1.0 x10(3)/mcL CERNER MILLENNIUM Eos % 2.1 0.0 - 7.0 % CERNER MILLENNIUM Eosinophils Abs 0.2 0.0 - 0.5 x10(3)/mcL CERNER MILLENNIUM Basophil % 0.3 0.0 - 2.0 % CERNER MILLENNIUM Baso Absolute 0.0 0.0 - 0.2 x10(3)/mcL CERNER MILLENNIUM Immature Gran % 0.10 0.00 - 0.66 % CERNER MILLENNIUM Comment: Immature granulocytes(IG's)percentage and absolute count will include metamyelocytes, myelocytes, and promyelocytes. Blood smears from CBCs yielding IG's will be scanned manually for concordance. If this scan disagrees with the automated IG or if promyelocytes are noted, a manual differential will be performed. Immature Gran Absolute 0.01 0.00 - 0.05 x10(3)/mcL CERNER MILLENNIUM Blood specimen (specimen) 12/23/2010 12:17 PM EDT 12/23/2010 12:30 PM EDT Liv Andino MD H[facility]ATOLOGY [facility] Performing Organization Address City/[facility]/ZIP Co de Phone Number [facility] * (ABNORMAL) Somatomedin C-Esoterix (12/23/2010 12:17 PM EDT) [facility] 1 75(L) 121 - 237 ng/mL CERNER MILLENNIUM Comment: Full-term newborns and infants: : ? 15-109 2 Months: ??15-109 4 Months: ?? 7-124 6 Months: ?? 7-93 12 Months: 15-101 Test performed by [employer] [address] [place] [address], ??[place] [id number] Blood specimen (specimen) 12/23/2010 12:17 PM EDT 12/23/2010 2:30 PM EDT Liv Andino MD LAB SEND OUT KATHRYN CINTRON [facility] * Cortisol (12/23/2010 12:17 PM EDT) Cortisol 7.4 mcg/dL [facility] Comment: Reference ranges: ??AM (7-10am): ??6.2-19.4 mcg/dL ??PM (4-8pm): ??2.3-12.3 mcg/dL Blood specimen (specimen) 12/23/2010 12:17 PM EDT 12/23/2010 12:30 PM EDT Liv Andino MD CHEMISTRY ORDERAB LES Performing Organization Address [facility]/ZIP Co de Phone Number [facility] * ACTH (12/23/2010 12:17 PM EDT) Pathologist [facility] ACTH 44 7 - 50 pg/mL [facility] Comment: Reference range applies only to specimens collected between 7-10am. Test Performed by [facility], [employer] [facility], [address] [place] [address] Thiago Mix M.D., Ph.D., Director of Laboratories , [facility] [id number] Blood specimen (specimen) 12/23/2010 12:17 PM EDT 12/23/2010 3:25 PM EDT Liv Andino MD LAB SEND OUT ORDE RABLES Performing Organization Address [facility] de Phone Number [facility] * (ABNORMAL) Luteinizing Hormone (12/23/2010 12:17 PM EDT) Luteinizing Hormone 0.8(L) 1.7 - 8.6 mlU/ML [facility] Comment: Reference ranges: ?? Females ?? Follicular: ? 2.4-12.6 mIU/mL ?? Ovulation: ?14.0-95.6 mIU/mL ?? Luteal: ? 1.0-11.4 mIU/mL ?? Postmenopausal: ? 7.7-58.5 mIU/mL Blood specimen (specimen) 12/23/2010 12:17 PM EDT 12/23/2010 12:30 PM EDT Liv Andino MD CHEMISTRY ORDERAB LES Performing Organization Address [facility] Co de Phone Number [facility] * (ABNORMAL) Follicle Stimulating Hormone (12/23/2010 12:17 PM EDT) Follicle Stimulating Hormone 0.7(L) 1.5 - 12.4 mlU/ML [facility] Comment: Reference Ranges: Females: Follicular: ? 3.5-12.5 mIU/mL Ovulation: ?4.7-21.5 mIU/mL Luteal: ? 1.7-7.7 mIU/mL Postmenopausal: 25.8-134.8 mIU/mL Blood specimen (specimen) 12/23/2010 12:17 PM EDT 12/23/2010 12:30 PM EDT Liv Andino MD CHEMISTRY ORDERAB LES Performing Organization Address [facility] Co de Phone Number [facility] * (ABNORMAL) Prolactin (12/23/2010 12:17 PM EDT) Prolactin 72.8(H) 4.0 - 15.2 ng/mL [facility] Blood specimen (specimen) 12/23/2010 12:17 PM EDT 12/23/2010 12:30 PM EDT Liv Andino MD CHEMISTRY ORDERAB LES Performing Organization Address City/[facility] Co de Phone Number [facility] * (ABNORMAL) Testosterone, free and total (12/23/2010 12:17 PM EDT) Testo Total 34(L) 250 - 1100 ng/dL [facility] Testo Free (JUNE) 5.4(L) 35.0 - 155.0 pg/mL CERNER MILLENNIUM Comment: Test Performed by [employer], [employer] [facility], [address] [place], [place] Thiago Mix M.D., Ph.D., Director of Laboratories , [facility] [id number] Blood specimen (specimen) 12/23/2010 12:17 PM EDT 12/23/2010 3:25 PM EDT Liv Andino MD LAB SEND OUT KATHRYN CINTRON [facility] * (ABNORMAL) Lipid panel (fasting) (12/23/2010 12:17 PM EDT) Cholesterol, Total 178 <=199 mg/dL CERNER MILLENNIUM Comment: Recommendations of the NCEP Adult Treatment Panel for the following risk cutoff thresholds for the [place] population: Desirable: <200 mg/dL Borderline High: 200-239 mg/dL High: > or = 240 mg/dL Triglyceride 152(H) <=149 mg/dL CERNER MILLENNIUM Comment: Reference Range: Normal triglycerides: ??<150 mg/dL Borderline high: ??150-199 mg/dL High: ??200-499 mg/dL Very high: ??>wi=526 mg/dL ASHLEY 2001; 285(19):4501-7829 HDL Cholesterol 35(L) >=40 mg/dL CER NER MILLENNIUM Comment: Reference range: ??Low HDL: ?? < 40 mg/dL ??Normal: ?40-60 mg/dL ??Desirable: > 60 mg/dL ASHLEY 2001; 285(19):3196-4661 LDL Cholesterol 113(H) <=99 mg/dL CER NER MILLENNIUM Comment: Reference range: ?? Optimal: ?<100 mg/dL ?? Near Optimal/Above Optimal: ?? 100-129 mg/dL ?? Borderline high: ?130-159 mg/dL ?? High: ? 160-189 mg/dL ?? Very high: ?>vy=929 mg/dL ASHLEY 2001: 285(19):1840-3787 Cholesterol/HDL Ratio 5.1 ratio [facility] Comment: A Cholesterol to HDL ratio below 4:1 is desirable. ??Studies suggest that increased CAD risk occurs at ratios above 5 for females and above 6 for men. ? [place] Heart Association ??(http://www.americanheart.org) ? Brie Int Med, 1994; 121:641 ? AM J Med, 1998; 105(1A):48S Blood specimen (specimen) 12/23/2010 12:17 PM EDT 12/23/2010 12:30 PM EDT Liv Andino MD CHEMISTRY ORDERAB LES [facility] * Hemoglobin A1c (12/23/2010 12:17 PM EDT) Hemoglobin A1c 5.9 4.3 - 6.1 % [facility] Estimated Average Glucose 123 mg/dL [facility] Comment: eAG equivalents for HbA1c percentages: HbA1c(%) ?eAG(mg/dL) 6.0 ?126 6.5 ?140 7.0 ?154 7.5 ?169 8.0 ?183 8.5 ?197 9.0 ?212 9.5 ?226 10.0 ? 240 Limitations: The eAG calculation has not been validated on women, individuals below 18 years old and above 70 years old, and individuals with hemoglobinopathies. Additional resources are available on the ADA website: ??http://professional.diabetes.org/glucosecalculator.aspx Reference: Alcides RUFF, José Miguel J, Chase R, et al. ??Translating the A1C assay into estimated average glucose values. ??Diabetes Care 2008:31(8):7159-5059. Blood specimen (specimen) 12/23/2010 12:17 PM EDT 12/23/2010 12:30 PM EDT Liv Andino MD CHEMISTRY ORDERAB LES Performing Organization Address [facility] Co de Phone Number [facility] [employer] * (ABNORMAL) Vitamin D2 and D3 25 Hydroxy (12/23/2010 12:17 PM EDT) 25-Hydroxy D2 <4.0 ng/mL [facility] [employer] Comment: Test Performed by: [place] [address] Library Attendant: Jen Lainez, Ph.D. 25-Hydroxy D3 18 ng/mL [facility] [employer] Comment: Test Performed by: [place] [address] Library Attendant: Jen Lainez, Ph.D. Vitamin D Total 25 OH 18(L) ng/mL [facility] [employer] Comment: Interpretation: 10-24 (mild to moderate deficiency) -- REFERENCE VALUE -- 25-HYDROXY D TOTAL (D2+D3) Optimum levels in the normal population are 25-80 Test Performed by: [facility] [place] [address] Library Attendant: Jen Lainez, Ph.D. Blood specimen (specimen) 12/23/2010 12:17 PM EDT 12/24/2010 12:29 PM EDT Liv Andino MD CHEMISTRY ORDERAB LES [facility] * (ABNORMAL) Comprehensive metabolic panel (non-fasting) (12/23/2010 12:17 PM EDT) Glucose 137 60 - 199 mg/dL CERNER MILLENNIUM Comment:Diabetes: >=200 mg/d L plus symptoms Blood Urea Nitrogen 11 10 - 20 mg/dL CERNER MILLENNIUM Creatinine 0.75(L) 0.80 - 1.50 mg/dL CERNER MILLENNIUM Sodium 136 135 - 145 mmol/L CERNER MILLENNIUM Potassium 3.3(L) 3.5 - 5.0 mmol/L CERNER MILLENNIUM Comment: Please note: ??Patients with WBC >100,000 may have falsely elevated Potassium levels. ??For accurate Potassium quantification in these patients send serum separator tube (gold top) for subsequent determinations. ??Contact the Clinical Chemistry Laboratory if there are any questions. Chloride 97(L) 98 - 107 mmol/L CERNER MILLENNIUM Carbon Dioxide 27 22 - 31 mmol/L CERNER MILLENNIUM Anion Gap 12 5 - 15 mmol/L CERNER MILLENNIUM Calcium 9.1 8.5 - 10.5 mg/dL CERNER MILLENNIUM Protein, Total 7.4 6.4 - 8.3 gm/dL CERNER MILLENNIUM Albumin 4.0 3.2 - 5.2 gm/dL CERNER MILLENNIUM Aspartate Aminotransferase 26 0 - 39 unit/L CERNER MILLENNIUM Alanine Aminotransferase 49 0 - 55 unit/L CERNER MILLENNIUM Alkaline Phosphatase 91 40 - 120 unit/L CERNER MILLENNIUM Bilirubin, Total 0.3 0.2 - 1.3 mg/dL CERNER MILLENNIUM Bilirubin, Direct 0.1 0.0 - 0.3 mg/dL CERNER MILLENNIUM Est Glomerular Filtration Rate >60 >=60 CERNER MILLENNIUM Comment: The National Kidney Disease Education Program (NKDEP) has recommended all laboratories report estimated GFR (eGFR) along with plasma creatinine measurements to assist you with recognition of early kidney disease. Caveats: ??Plasma creatinine should be at steady-state (unchanged within the past week). For patients multiply eGFR by 1.2.MDRD equation has not been validated for pediatric patients and is only valid for patients with age >= 18 years. At present, NKDEP does NOT recommend using the MDRD equation for drug dosing purposes and pharmacists should continue to use their current dosing methods. In addition, numerical eGFR values greater than 60 ml/min/1.73 square meters should be treated as > 60, and not an exact number due to greater inaccuracies at these higher values. Per NKDEP, they classify normal renal function as any GFR >60ml/min/1.73 square meters; chronic kidney disease when GFR <60, and renal failure when GFR <15. ??This calculation may not be valid for patients with atypical muscle mass (very lean or obese), acute renal failure, and in patients with diabetic kidney disease. References: http://nkdep.nih.gov/resources/NKDEP_Suggestn4Labs_0606_508.pdf http://www.kidney.org/professionals/kls/pdf/faq_gfr.pdf Blood specimen (specimen) 12/23/2010 12:17 PM EDT 12/23/2010 12:30 PM EDT Liv Andino MD CHEMISTRY ORDERAB LES [facility] [place] * (ABNORMAL) CBC (with Diff) (12/23/2010 12:17 PM EDT) White Blood Cell 9.4 4.0 - 10.0 x10(3)/mc L CERNER MILLENNIUM Red Blood Cell 5.23 4.63 - 6.08 x10(6)/mc L CERNER MILLENNIUM Hemoglobin 14.3 13.7 - 17.5 gm/dL CERNER MILLENNIUM Hematocrit 44.0 40.0 - 51.0 % CERNER MILLENNIUM Mean Cell Volume 84.1 79.0 - 92.0 fL CERNER MILLENNIUM Mean Cell Hemoglobin 27.3 25.6 - 32.2 pg CERNER MILLENNIUM Mean Cell Hemoglobin Concentration 32.5 32.0 - 36.5 gm/dL CERNER MILLENNIUM Platelet 273 145 - 370 x10(3)/mc L CERNER MILLENNIUM RDW Standard Deviation 45.4 35.0 - 46.0 fL CERNER MILLENNIUM RDW coefficient of variation 14.8(H) 10.9 - 14.4 % [facility] Mean Platelet Volume 11.3 9.0 - 12.0 fL [facility] MILLENNIUM Blood specimen (specimen) 12/23/2010 12:17 PM EDT 12/23/2010 12:30 PM EDT Liv Andino MD HEMATOLOGY ORDERA BLES Performing Organization Address [facility] Co de Phone Number [facility] * PSA (12/23/2010 12:17 PM EDT) Prostate Specific Antigen (Ultrasensitiv e) 0.31 0.00 - 4.00 ng/mL [facility] Blood specimen (specimen) 12/23/2010 12:17 PM EDT 12/23/2010 12:30 PM EDT Liv Andino MD CHEMISTRY ORDERAB LES Performing Organization Address [facility] de Phone Number [facility] * T4, free (12/23/2010 12:17 PM EDT) Free T4 1.00 0.90 - 1.60 ng/dL [facility] Blood specimen (specimen) 12/23/2010 12:17 PM EDT 12/23/2010 12:30 PM EDT Liv Andino MD CHEMISTRY ORDERAB LES Performing Organization Address [facility] de Phone Number [facility] * TSH (12/23/2010 12:17 PM EDT) Thyroid Stimulating Hormone 1.58 0.27 - 4.20 mcIU/mL [facility] Blood specimen (specimen) 12/23/2010 12:17 PM EDT 12/23/2010 12:30 PM EDT Liv Andino MD CHEMISTRY ORDERAB LES Performing Organization Address [facility]/State/ZIP Co de Phone Number [facility] documented in this encounter Visit Diagnoses Diagnosis Hypogonadal obesity Unspecified endocrine disorder Obesity Obesity, unspecified Fatigue Other malaise and fatigue Pre-diabetes Other abnormal glucose documented in this encounter Care Teams Paralegal Internship Relationship Specialty Start Date End Date Jayashree Foster MD [facility] [address] [place] [address] [place] [address] PCP - General 09/20/10 04/11/13 documented as of this encounter
--- OUTSIDE RECORDS SUMMARY | 2023-10-07 20:54 | XMS_ITS | Encounter Summary ---
Author Organization [facility] Address [address] [place] [address] Care Team Providers Care Rn Neurosurgical Name Role Phone Migdalia Mtz MD Primary Care Provider [phone] Linwood Sanchez MD Unavailable [phone] Reason for Visit * Reason Comments Other Encounter Details Date Type Department Care Team (Late st Contact Info) Description [facility] [address] [place] [address] Linwood Sanchez MD [address] [place] [address] Other Social History Tobacco Use Types [...] on filedocumented in this encounter Care Teams Rn Neurosurgical Relationship Specialty Start Date End Date Migdalia Mtz MD [address] [phone] PCP - General 12/29/14 Linwood Sanchez MD [address] [place] [phone] Cardiovascular Disease 01/29/21 documented as of this encounter
--- OUTSIDE RECORDS SUMMARY | 2023-10-07 20:54 | XMS_ITS | Encounter Summary ---
Author Organization [facility] Address [address] [place] [address] Care Team Providers Care Assistant Art Director Name Role Phone Migdalia Mtz MD Primary Care Provider [phone] Linwood Sanchez MD Unavailable [phone] Reason for Visit * Reason Onset Date Comments Medications Refill 07/04/2021 Encounter Details Date Type Department Care Team ([facility] Contact Info) Description 07/04/2021 Refill [facility] [address] [place] [address] Jagruti Barker, RN Medications Refill Social History Tobacco Use Types Packs/Day [...] Refills Start Date End Da te isosorbide MONOnitrate (IMDUR) 30 mg CR tablet Take 1 Tablet by mouth daily. 60 Tablet 07/04/2021 documented in this encounter Miscellaneous Notes * Telephone Encounter - Jagruti Barker RN - 07/04/2021 1342 EDT Patient called back to schedule a F/U OV. States he is in need of a refill. Rx sent to pharmacy until seen on 09/10/2021. Patient is aware only able to fill RX until has followed up in the office. documented in this encounter Plan of Treatment Not on file documented as of this encounter Visit Diagnoses Not on filedocumented in this encounter Discontinued Medications Medication Sig Discontinue Reason Start Date End Da te isosorbide MONOnitrate (IMDUR) 30 mg CR tablet TAKE ONE TABLET BY MOUTH EVERY DAY Reorder 04/08/2021 07/04/2021 documented as of this encounter Care Teams Assistant Art Director Relationship Specialty Start Date End Date Migdalia Mtz MD [address] [place] [phone] PCP - General 12/29/14 Linwood Sanchez MD [address] [place] [address] [address] [place] [phone] Cardiovascular Disease 01/29/21 documented as of this encounter
--- OUTSIDE RECORDS SUMMARY | 2023-10-07 20:54 | XMS_ITS | Encounter Summary ---
Author Organization [facility] Address [address] [place] [address] Care Team Providers Care Jewelry Sales Name Role Phone Migdalia Mtz MD Primary Care Provider [phone] Linwood Sanchez MD Unavailable [phone] Reason for Visit * Reason Comments Other Encounter Details Date Type Department Care Team ([facility] Contact Info) Description 06/05/2019 Refill [facility] [address] [place] [address] Linwood Sanchez MD [address] [facility] [employer] [address] [phone] Other Social History Tobacco Use Types Packs/Day Years Used Date Smoking Tobacco: Never Assessed Sex and Gender Information Value Date Recorded Sex Assigned at Not on file Gender Identity Male 03/24/2019 16:11 EST Sexual Orientation Not on file documented as of this encounter Ordered Prescriptions Prescription Sig Dispensed Refills Start Date End Da te aspirin 81 mg EC tablet TAKE ONE TABLET BY MOUTH EVERY DAY 90 Tab 3 06/06/2019 documented in this encounter Plan of Treatment Not on file documented as of this encounter Visit Diagnoses Not on filedocumented in this encounter Discontinued Medications Medication Sig Discontinue Reason Start Date End Da te aspirin 81 mg EC tablet Take 81 mg by mouth daily. 03/20/2019 06/06/2019 documented as of this encounter Care Teams Jewelry Sales Relationship Specialty Start Date End Date Migdalia Mtz MD [facility] [employer] [facility] [address] [place] [phone] PCP - General 12/29/14 Linwood Sanchez MD [address] [place] [address] [phone] Cardiovascular Disease 01/29/21 documented as of this encounter
--- OUTSIDE RECORDS SUMMARY | 2023-10-07 20:54 | XMS_ITS | Encounter Summary ---
Author Organization [facility] Address [address] [place] [address] Care Team Providers Care Operations Support Manager Name Role Phone Migdalia Mtz MD Primary Care Provider [phone] Linwood Sanchez MD Unavailable Encounter Details Date Type Department Care Team (Late st Contact Info) Description 05/07/2019 Lab Requisition [facility] Pathology & Laboratory Medicine - [address] [address] Unknown, Provider, Social History Tobacco Use Types Packs/Day Years Used Date Smoking Tobacco: Never Assessed Sex and Gender Information Value Date Recorded Sex Assigned at Not on file Gender Identity Male 03/24/2019 16:11 EST Sexual Orientation Not on file documented as of this encounter Plan of Treatment Not on file documented as of this encounter Procedures Procedure Name Priority Date/Time Associated Diagnosis Comments PSA TOTAL, DIAGNOSTIC Routine 05/06/2019 15:00 EDT documented in this encounter Results * PSA TOTAL, DIAGNOSTIC (05/06/2019 15:00 EDT) PSA 0.5 0.0 - 2.5 ng/mL 05/09/2019 10:10 EDT [facility] Blood VENOUS BLOOD / Unknown 05/06/2019 15:00 EDT 05/08/2019 15:58 EDT Narrative [facility] - 05/09/2019 10:10 EDT NOTE: Serum PSA concentration should not be interpreted as absolute evidence for the presence or absence of malignant disease. Assayed on Siemens ADVIA Centaur XPT using chemiluminescent technology.??Values obtained by using different assay methods cannot be used interchangeably. Provider Unknown CHEMISTRY & BLOOD GA S ORDERABLES [facility] [address] [place] [address] documented in this encounter Visit Diagnoses Not on filedocumented in this encounter Care Teams Operations Support Manager Relationship Specialty Start Date End Date Migdalia Mtz MD [address] [place] [phone] PCP - General 12/29/14 Linwood Sanchez MD [address] [place] [address] [address] [place] [phone] Cardiovascular Disease 01/29/21 documented as of this encounter
--- OUTSIDE RECORDS SUMMARY | 2023-10-07 20:54 | XMS_ITS | Encounter Summary ---
Author Organization [facility] [place] [address] Care Team Providers Care Aerodynamics Professor Name Role Phone Avni Jayashree MARISCAL Primary Care Provider [phone] Encounter Details Date Type Department Care Team ([facility] Contact Info) Description 03/24/2011 Telephone [place] [phone] Lucero Montanez LPN Social History Tobacco Use [...] Telephone Encounter - Lucero Montanez LPN - 03/24/2011 2:37 PM EST Rosy pharmacist at [facility] calls asking if the atenolol that has been ordered was to replace propranolol ER 80 that he was previously taking. Per 12/23/10 Dr Andino note 1. Medication: Patient will start taking atenolol 100 mg qd instead of propanolol since the latter can block conversion of thyroid hormone (T4 to T3) documented in this encounter Plan of Treatment Not on file documented as of this encounter Visit Diagnoses Not on filedocumented in this encounter Care Teams Aerodynamics Professor Relationship Specialty Start Date End Date Jayashree Holly MD HOSPITALIST SERVICES [address] [place] [address] [place] [address] PCP - General 09/20/10 04/11/13 documented as of this encounter
--- OUTSIDE RECORDS SUMMARY | 2023-10-07 20:54 | XMS_ITS | Encounter Summary ---
Author Organization [facility] Address [address] [place] [address] Care Team Providers Care Metal Burrer Name Role Phone Migdalia Mtz MD Primary Care Provider [phone] Linwood Sanchez MD Unavailable [phone] Encounter Details Date Type Department Care Team (Late st Contact Info) Description 03/13/2021 Lab Requisition [facility] Pathology & Laboratory Medicine - [address] [phone] Outr Resulting Lab, Provider Social History Tobacco [...] Procedure Name Priority Date/Time Associated Diagnosis Comments ZZCOVID-19 TEST [facility] PCR Today 03/13/2021 9:30 EST COVID-19 TESTING Routine 03/13/2021 9:30 EST documented in this encounter Results * COVID-19 TEST [facility] PCR (03/13/2021 9:30 EST) Swab 03/13/2021 9:30 EST 03/13/2021 21:10 EST Provider Outr Resulting Lab MICROBIOLOGY - GENERAL ORDERABLES [facility] [address] [place] [address] * COVID-19 TESTING (03/13/2021 9:30 EST) COVID-19 rt-PCR Result Negative Negative 03/15/2021 8:01 EST [facility] Comment: This test has not been FDA cleared or approved. This test has been authorized by FDA under an EUA for use by authorized laboratories. This test has been authorized only for detection of nucleic acid from 2019-nCoV, not for any other viruses or pathogens. This test is only authorized for the duration of the declaration that circumstances exist justifying the authorization of emergency use of in vitro diagnostic tests for detection and/or diagnosis of 2019-nCoV under section 564(b)(1) of Act, 21 U.S.C ?? 360bbb-3(b) (1), unless the authorization is terminated or revoked sooner. Negative results do not preclude 2019-nCoV infection and should not be used as the sole basis for treatment or other patient management decisions. Negative results must be combined with clinical observations, patient history, and epidemiological information. This test was developed and its performance characteristics determined by [facility]. It has not been cleared or approved by the US Food and Drug Administration. FDA does not require this test to go through premarket FDA review. This test is used for clinical purposes. It should not be regarded as investigational or for research. This laboratory is certified under the Clinical Laboratory Improvement Amendments (CLIA) as qualified to perform high complexity clinical laboratory testing. Laboratory Developed Test (LDT) Performed on the Carrot.mxo 7 Flex RT-PCR System. Performing Lab [facility] Lab 03/15/2021 8:01 EST [facility] Swab 03/13/2021 9:30 EST 03/13/2021 21:10 EST Provider Outr Resulting Lab MICROBIOLOGY - GENERAL ORDERABLES [facility] [address] [place] [address] documented in this encounter Visit Diagnoses Not on filedocumented in this encounter Care Teams Metal Burrer Relationship Specialty Start Date End Date Migdalia Mtz MD [address] [place] [phone] PCP - General 12/29/14 Linwood Sanchez MD [address] [place] [phone] Cardiovascular Disease 01/29/21 documented as of this encounter
--- OUTSIDE RECORDS SUMMARY | 2023-10-07 20:54 | XMS_ITS | Encounter Summary ---
Author Organization [facility] Address [address] [place] [address] Care Team Providers Care Can Dragger Name Role Phone Migdalia Mtz MD Primary Care Provider [phone] Linwood Sanchez MD Unavailable [phone] Encounter Details Date Type Department Care Team (Late st Contact Info) Description 04/02/2023 Lab Requisition [facility] Pathology & Laboratory Medicine - [facility] [address] [place], [place] [phone] Outr Resulting Lab, Provider Social History Tobacco Use Types Packs/Day Years Used Date Smoking Tobacco: Some Days Cigarettes Alcohol Use Standard Drinks/Week Comments Not Currently 0 (1 standard drink = 0.6 oz pur e alcohol) Interpersonal Safety Answer Date Record ed Physically [...] Priority Date/Time Associated Diagnosis Comments PROLACTIN Routine 04/01/2023 16:10 EST PSA TOTAL, DIAGNOSTIC Routine 04/01/2023 16:10 EST documented in this encounter Results * PSA TOTAL, DIAGNOSTIC (04/01/2023 16:10 EST) PSA 1.0 <=3.5 ng/mL 04/02/2023 18:08 EST [facility] Blood VENOUS BLOOD / Unknown 04/01/2023 16:10 EST 04/02/2023 17:01 EST Narrative [facility] - 04/02/2023 18:08 EST NOTE: Serum PSA concentration should not be interpreted as absolute evidence for the presence or absence of malignant disease. Assayed on Siemens ADVIA Centaur XPT using chemiluminescent technology.??Values obtained by using different assay methods cannot be used interchangeably. Provider Outr Resulting Lab CHEMISTRY & BLOOD GAS ORDERABLES Performing Organization Address City/[facility]/ZIP Co de Phone Number [facility] [address] [place] [address] * PROLACTIN (04/01/2023 16:10 EST) Pathologist [facility] Prolactin 8.9 2.1 - 17.7 ng/mL 04/02/2023 18:09 EST [facility] Blood VENOUS BLOOD / Unknown 04/01/2023 16:10 EST 04/02/2023 17:01 EST Provider Outr Resulting Lab CHEMISTRY & BLOOD GAS ORDERABLES Performing Organization Address City/[facility] Co de Phone Number [facility] [address] [place] [address] documented in this encounter Visit Diagnoses Not on filedocumented in this encounter Care Teams Can Dragger Relationship Specialty Start Date End Date Migdalia Mtz MD [address] [place] [phone] PCP - General 12/29/14 Linwood Sanchez MD [address] [place] [address]-[facility] [address] [place] [phone] Cardiovascular Disease 01/29/21 documented as of this encounter
--- OUTSIDE RECORDS SUMMARY | 2023-10-07 20:54 | XMS_ITS | Encounter Summary ---
Author Organization [facility] Address [address] [place] [address] Care Team Providers Care Electrolysis Engineer Name Role Phone Migdalia Mtz MD Primary Care Provider [phone] Reason for Visit * Reason Comments Other Encounter Details Date Type Department Care Team ([facility] st Contact Info) Description 06/11/2020 Refill [facility] Cardiology Clinic [address] [place] [address] Linwood Sanchez MD [address] [place] [address]-[address] [place] [address] Other Social History Tobacco Use [...] TABLET BY MOUTH EVERY DAY 90 Tab 06/12/2020 10/04/2020 documented in this encounter Miscellaneous Notes * Telephone Encounter - Amada Hartmann RN - 06/12/2020 3823 EDT Electronic refill request for Atorvastatin 20 mg 1 tab daily. Last office visit - 05/18/2019, patient to have 3 month follow-up - was no showed, has follow-up scheduled for 08/07/2020 currently. E-scribed for #90 with no refills. documented in this encounter Plan of Treatment Not on file documented as of this encounter Visit Diagnoses Not on filedocumented in this encounter Discontinued Medications Medication Sig Discontinue Reason Start Date End Da te atorvastatin (LIPITOR) 20 mg tablet TAKE ONE TABLET BY MOUTH EVERY DAY 11/22/2019 06/12/2020 documented as of this encounter Care Teams Electrolysis Engineer Relationship Specialty Start Date End Date Migdalia Mtz MD [address] [place] [phone] PCP - General 12/29/14 documented as of this encounter
--- OUTSIDE RECORDS SUMMARY | 2023-10-07 20:54 | XMS_ITS | Encounter Summary ---
Author Organization [facility] Address [address] [place] [address] Care Team Providers Care Machine Setter And Repairer Name Role Phone Migdalia Mtz MD Primary Care Provider [phone] Linwood Sanchez MD Unavailable [phone] Reason for Visit * Reason Comments Other Encounter Details Date Type Department Care Team (Late st Contact Info) Description 09/22/2020 Refill [facility] Clinic [address] [place] [address] Linwood Sanchez MD [address] [place] [phone] Other Social History Tobacco Use Types [...] filedocumented in this encounter Care Teams Machine Setter And Repairer Relationship Specialty Start Date End Date Migdalia Mtz MD [address] [phone] PCP - General 12/29/14 Linwood Sanchez MD [address] [place] [phone] Cardiovascular Disease 01/29/21 documented as of this encounter
--- OUTSIDE RECORDS SUMMARY | 2023-10-07 20:54 | XMS_ITS | Encounter Summary ---
Author Organization [facility] Address [address] [place] [address] Care Team Providers Care Animal Researcher Name Role Phone Migdalia Mtz MD Primary Care Provider [phone] Linwood Sanchez MD Unavailable [phone] Encounter Details Date Type Department Care Team (Late st Contact Info) Description 01/14/2022 Lab Requisition [facility] Pathology & Laboratory Medicine - [address] [phone] Outr Resulting Lab, Provider Social History Tobacco [...] Priority Date/Time Associated Diagnosis Comments PROLACTIN Routine 01/14/2022 13:20 EST documented in this encounter Results * PROLACTIN (01/14/2022 13:20 EST) Prolactin 12.7 2.1 - 17.7 ng/mL 01/15/2022 10:43 EST [facility] Blood VENOUS BLOOD / Unknown 01/14/2022 13:20 EST 01/14/2022 21:53 EST Provider Outr Resulting Lab CHEMISTRY & BLOOD GAS ORDERABLES [facility] [address] [place] [address] documented in this encounter Visit Diagnoses Not on filedocumented in this encounter Care Teams Animal Researcher Relationship Specialty Start Date End Date Migdalia Mtz MD [address] [place] [phone] PCP - General 12/29/14 Linwood Sanchez MD [address] [place] [address] [address] [place] [phone] Cardiovascular Disease 01/29/21 documented as of this encounter
--- OUTSIDE RECORDS SUMMARY | 2023-10-07 20:54 | XMS_ITS | Encounter Summary ---
Author Organization [facility] Address [facility] [place] [address] Care Team Providers Care Tank Farm Attendant Name Role Phone Avni Jayashree MARISCAL Primary Care Provider [phone] Encounter Details Date Type Department Care Team ([facility] Contact Info) Description 12/26/2010 [place] [address] Liv Andino MD [facility] [place] [address] Social History Tobacco Use Types Packs/Day Years [...] Telephone Encounter - Lucero Montanez LPN - 12/27/2010 2:25 PM EDT Patient calls at which time message from Dr Andino was read to him. Patient agrees with plan of care and states he just picked up the vitamin D. * Telephone Encounter - Lucero Montanez LPN - 12/27/2010 10:13 AM EDT Returning call to patient not at home left message on voice mail to return my call. * Telephone Encounter - Lucero Montanez LPN - 12/26/2010 1:57 PM EDT Called patient no answer left message for patient to return my call Darvin Sanz - 12/23/10 ','<More Detail >> From Liv Andino MD Sent Saturday December 25, 2010 10:36 PM To P [facility]ocr[facility]ology NurseSubject Low vitD results=> efaxed script already Message Cy Barker, please tell pt that the other lab for vitamin D at recent visit was low at 18 (normal 30-80) and this may cause fatigue as well. So, pt should take vitamin-D as prescribed (50,000 iudaily for a week then taper down to 1 capsule weekly--script was just e-faxed to his pharmacy). Please let him know too. I;ll mail all test results to him and PCP (pending for testosterone results). Thanks, Liv documented in this encounter Plan of Treatment Not on file documented as of this encounter Visit Diagnoses Not on filedocumented in this encounter Care Teams Tank Farm Attendant Relationship Specialty Start Date End Date Jayashree Holly MD [facility] [address] [place] [address] [place] [address] PCP - General 09/20/10 04/11/13 documented as of this encounter
--- OUTSIDE RECORDS SUMMARY | 2023-10-07 20:54 | XMS_ITS | Encounter Summary ---
Author Organization [facility] Address [address] [place] [address] Care Team Providers Care Unclaimed Property Manager Name Role Phone Migdalia Mtz MD Primary Care Provider [phone] Reason for Visit * Reason Comments Other Encounter Details Date Type Department Care Team ([facility] st Contact Info) Description 05/23/2020 Refill [facility] Cardiology Clinic [address] [place] [address] Linwood Sanchez MD [address] [place] [address]-[address] [place] [address] Other Social History Tobacco Use [...] TABLET BY MOUTH EVERY DAY 90 Tab 05/24/2020 10/04/2020 documented in this encounter Miscellaneous Notes * Telephone Encounter - José Castellanos - 05/24/2020 1049 EDT appt sched with pt for 08/07/20; 0900 arrival * Telephone Encounter - Amada Hartmann RN - 05/24/2020 0839 EDT Received refill request for Isosorbide Mononitrate 30 mg 1 tab daily. Last office visit - 05/18/2019, no showed for follow-up on 08/23/2019 and has not scheduled an further follow-up. Medication was started at last office visit. E-scribed 90 days no refills. To lockstitch front maker - please contact patient and schedule follow-up appointment. documented in this encounter Plan of Treatment Not on file documented as of this encounter Visit Diagnoses Not on filedocumented in this encounter Discontinued Medications Medication Sig Discontinue Reason Start Date End Da te isosorbide mononitrate (IMDUR) 30 mg CR tablet Take 1 Tab by mouth daily for 30 days. 05/18/2019 05/24/2020 documented as of this encounter Care Teams Unclaimed Property Manager Relationship Specialty Start Date End Date Migdalia Mtz MD [address] [place] [phone] PCP - General 12/29/14 documented as of this encounter
--- OUTSIDE RECORDS SUMMARY | 2023-10-07 20:54 | XMS_ITS | Encounter Summary ---
Author Organization [facility] Address [address] [place] [address] Care Team Providers Care Tank House Operator Helper Name Role Phone Migdalia Mtz MD Primary Care Provider [phone] Linwood Sanchez MD Unavailable [phone] Reason for Visit * Reason Comments Cardiomyopathy Encounter Details Date Type Department Care Team (Latest Contact Info) Description 09/10/2021 9:45 EDT Office Visit [facility] [address] [place] [address] Linwood Sanchez MD [address] [facility] [address] [place] [address] Nonischemic cardiomyopathy (HCC-CMS) (HCC) (Primary Dx); Atherosclerosis of tejon coronary artery of tejon heart without angina pectoris; Mixed hyperlipidemia; Essential hypertension; Morbid obesity (HCC-CMS); Smoker Social History Tobacco Use Types Packs/Day [...] Sign Reading Time Taken Comments Blood Pressure 146/88 09/10/2021 0954 EDT Pulse 84 09/10/2021 0954 EDT Temperature - - Respiratory Rate - - Oxygen Saturation 93% 09/10/2021 0954 EDT Inhaled Oxygen Concentration - - Weight 209.1 kg (461 lb) 09/10/2021 0954 EDT Height 175.3 cm (5' 9) 09/10/2021 0954 EDT Body Mass Index 68.08 09/10/2021 0954 EDT documented in this encounter Progress Notes * Linwood Sanchez MD - 09/10/2021 0945 EDT [facility] CARDIOLOGY FOLLOW-UP Date of Service: 09/10/2021 Reason for Visit: Nonischemic cardiomyopathy (HCC-CMS) ([facility]) [I42.8] ASSESSMENT 1. Nonischemic cardiomyopathy (HCC-CMS) ([facility]) 2. Atherosclerosis of tejon coronary artery of tejon heart without angina pectoris 3. Mixed hyperlipidemia 4. Essential hypertension Chest pain does not sound cardiac. Cardiac catheterization did not demonstrate flow-limiting coronary artery disease. Etiology of cardiomyopathy unclear. No evidence of heart failure - his SOB is due to obesity. PLAN ??? I did not make any medication changes today ??? I encouraged him to quit smoking ??? Consider semaglutide or bariatric surgery to facilitate weight loss ??? Will refer him to [facility] cardiology since it is closer to home Follow-up PRN SUBJECTIVE Darvin Sanz , 1970 50 y.o. male patient with tobacco dependence and personal h/o bipolar disorder, GIB due to PUD, obstructive sleep apnea on BiPAP, hyperlipidemia and non- obstructive coronary artery disease. 02/2018 on and off nonexertional chest pain. Positive stress test. Yet, no flow- limiting disease oncardiac catheterization. EF 45%. Patient continues to experience on and off chest pain. There are no clearly identifiable triggers. He experiences SOB w/ minimal exertion. It is worse on humid days. He does not use inhalers. He smokes and vapes. He uses BIPAP regularly. Patient denies PND, edema, palpitations, syncope, bleeding, GI symptoms. Outpatient Medications Marked as Taking for the 09/10/21 encounter (Office Visit) with Linwood Sanchez MD Medication Sig ??? amLODIPine (NORVASC) 5 mg tablet TAKE ONE TABLET BY MOUTH EVERY DAY ??? aspirin 81 mg EC tablet TAKE ONE TABLET BY MOUTH EVERY DAY ??? atorvastatin (LIPITOR) 20 mg tablet TAKE ONE TABLET BY MOUTH EVERY DAY ??? cabergoline (DOSTINEX) 0.5 mg tablet ??? celecoxib (CELEBREX) 50 mg capsule 1 cap(s) orally once a day ??? citalopram (CELEXA) 10 mg tablet 1 tab(s) orally once a day ??? escitalopram oxalate (LEXAPRO) 20 mg tablet ??? furosemide (LASIX) 20 mg tablet 3 tab(s) orally once a day as needed for edema ??? HYDROcodone-acetaminophen (NORCO) 10-325 mg tablet ??? isosorbide MONOnitrate (IMDUR) 30 mg CR tablet Take 1 Tablet by mouth daily. ??? loratadine (CLARITIN) 10 mg tablet 1 orally every day ??? methylphenidate HCl (RITALIN;METHYLIN) 20 mg tablet Take 20 mg by mouth 3 times daily. ??? pregabalin (LYRICA) 100 mg capsule 1 cap(s) orally 2 times a day ??? sertraline (ZOLOFT) 25 mg tablet 1 tab(s) orally once a day ??? testosterone cypionate (DEPO-TESTOSTERONE) 200 mg/mL injection Allergies: Ibuprofen Social History: Smoker. No alcohol. No stimulants other than methylphenidate. Family History: No premature coronary artery disease. ROS: Performed; pertinent positives and negatives as mentioned above. OBJECTIVE Blood pressure (!) 146/88, pulse 84, height 175.3 cm (69), weight (!) 209.1 kg (461 lb), SpO2 93 %. Physical Examination GENERAL: Pleasant, no acute distress. HEENT: Anicteric NECK: Supple, unable to assess jugular venous pressure due to bodyhabitus CHEST: Nontender. LUNGS: Diminished breathsounds, no rhonchi, rales or wheezes. HEART: Distant heart sounds, regular rate and rhythm, no murmurs. EXTREM: No cyanosis or edema, 2+ radial pulses. NEURO: Alert and oriented x3, grossly intact Diagnostic Data Available records including laboratory and cardiac studies reviewed; pertinent findings are as follows: No results found for: CREATININE, CALCGFR, BUN, NA, CL, K, MG, LABALBU, ALT, AST, GGT, ALKPHOS, TBIL No results found for: NTBNP, TROPONINI, URICACID, CRP, HGB, FERRITIN, LABIRON Lab Results Component Value Date CHOL 137 09/27/2018 HDL 31 (L) 09/27/2018 LDL 81 09/27/2018 TRIG 123 09/27/2018 No results found for: HGBA1C, TSH Echocardiogram 2019: EF 45%, apical akinesis, no thrombus. Dilated RV with reduced function. ORDERS Other Orders Placed This Visit Procedures ??? Amb Consult/Follow Up External Services Linwood Sanchez MD PhD documented in this encounter Plan of Treatment Not on file documented as of this encounter Visit Diagnoses Diagnosis Nonischemic cardiomyopathy (HCC-CMS)- Primary Other primary cardiomyopathies Atherosclerosis of tejon coronary artery of tejon heart without angina pectoris Mixed hyperlipidemia Essential hypertension Unspecified essential hypertension Morbid obesity (HCC-CMS) Morbid obesity Smoker Tobacco use disorder documented in this encounter Care Teams Tank House Operator Helper Relationship Specialty Start Date End Date Migdalia Mtz MD [address] [place] [phone] PCP - General 12/29/14 Linwood Sanchez MD [address] [place] [address]-[address] [place] [phone] Cardiovascular Disease 01/29/21 documented as of this encounter
--- OUTSIDE RECORDS SUMMARY | 2023-10-07 20:54 | XMS_ITS | Clinical Summary ---
Author Organization [facility] Address [address] [place] [address] Care Team Providers Care Head Of Marketing Name Role Phone Migdalia Mtz MD Primary Care Provider [phone] Linwood Sanchez MD Unavailable Allergies Active Allergy Reactions Criticality Noted Date Comments Ibuprofen GI upset 05/18/2019 GIB Medications Medication Sig Dispensed Refills Start Date End Date Status citalopram (CELEXA) 10 mg tablet 1 tab(s) orally once a day Active loratadine (CLARITIN) 10 mg tablet 1 orally every day Active furosemide (LASIX) 20 mg tablet 3 tab(s) orally once a day as needed for edema Active diazePAM (VALIUM) 10 mg tablet TAKE ONE TABLET BY MOUTH THREE TIMES A DAY NEEDED FOR MUSCLE SPASM 03/04/2019 Active methylphenidate HCl (RITALIN;METHYLIN) 20 mg tablet Take 20 mg by mouth 3 times daily. 03/20/2019 Active lurasidone (LATUDA) 60 mg tablet 1 tab(s) orally once a day Active testosterone cypionate (DEPO-TESTOSTERONE) 200 mg/mL injection 03/24/2019 Active sertraline (ZOLOFT) 25 mg tablet 1 tab(s) orally once a day Active chlorthalidone (HYGROTEN) 50 mg tablet 02/15/2019 A ctive cabergoline (DOSTINEX) 0.5 mg tablet 02/15/2019 Active HYDROcodone-acetaminoph en (NORCO) 10-325 mg tablet 03/04/2019 Active XOPENEX HFA 45 mcg/actuation inhaler 03/02/2019 Act callum pregabalin (LYRICA) 100 mg capsule 1 cap(s) orally 2 times a day Active escitalopram oxalate (LEXAPRO) 20 mg tablet 03/20/2019 Ac tive celecoxib (CELEBREX) 50 mg capsule 1 cap(s) orally once a day Active aspirin 81 mg EC tablet TAKE ONE TABLET BY MOUTH EVERY DAY 90 Tab 3 06/06/2019 Active isosorbide MONOnitrate (IMDUR) 30 mg CR tablet Take 1 Tablet by mouth daily. 60 Tablet 07/04/2021 Active atorvastatin (LIPITOR) 20 mg tablet TAKE ONE TABLET BY MOUTH EVERY DAY 90 Tablet 3 07/29/2021 Active amLODIPine (NORVASC) 5 mg tabletIndications:Nonis chemic cardiomyopathy (HCC-CMS) TAKE ONE TABLET BY MOUTH EVERY DAY 90 Tablet 3 10/20/2022 Active Active Problems Patient Care Coordination No te Formatting of this note migh t be different from the original. 2021-09-10 [facility]I- permission to speak with Jayashree Sanz (ex-) and Ligia Sanz (daughter) Problem Noted Date Diagnosed Date Essential hypertension 09/10/2021 Morbid obesity ([facility]) 09/10/2021 Nonischemic cardiomyopathy ([facility]) 05/18/2019 Left heart failure with left ejection fraction 41-49 percent ([facility]) 05/18/2019 Atherosclerosis of comanche co ronary artery of comanche heart without angina pectoris 05/18/2019 Mixed hyperlipidemia 05/18/2019 Smoker 05/18/2019 Atypical chest pain 05/18/2019 Surgical History Surgery Date Site/Laterality Comments CARDIAC CATHERIZATION 03/26/2018 - 04/22/2018 Left main normal. LAD 25%. LCx normal. RCA 10%. Family History Medical History Relation Comments Heart Attack Under 50 Neg Hx Social History Tobacco Use Types Packs/Day Years [...] 16:11 EST Sexual Orientation Not on file Obstetrics History Last Filed Vital Signs Vital Sign Reading Time Taken Comments Blood Pressure 146/88 09/10/2021 0954 EDT Pulse 84 09/10/2021 0954 EDT Temperature - - Respiratory Rate - - Oxygen Saturation 93% 09/10/2021 0954 EDT Inhaled Oxygen Concentration - - Weight 209.1 kg (461 lb) 09/10/2021 0954 EDT Height 175.3 cm (5' 9) 09/10/2021 0954 EDT Body Mass Index 68.08 09/10/2021 0954 EDT Plan of Treatment Health Maintenance Due Date Last Done Comments Hepatitis C Screen 1970 Pneumococcal Immunization (1 of 2 - PCV) 11/21/1975 Hepatitis B Vaccine (1 of 3 - 19+ 3-dose series) 11/20 COVID-19 Vaccine ( - 2022- season) 2022 Care Teams Head Of Marketing Relationship Specialty Start Date End Date Migdalia Mtz MD [address] [phone] PCP - General 12/29/14 Linwood Sanchez MD [address] [facility] [address] [place] [address] Cardiovascular Disease 01/29/21
--- OUTSIDE RECORDS SUMMARY | 2023-10-07 20:54 | XMS_ITS | Encounter Summary ---
Author Organization [facility] Address [address] [place] [address] Care Team Providers Care Access Service Representative Name Role Phone Migdalia Mtz MD Primary Care Provider [phone] Encounter Details Date Type Department Care Team (Late st Contact Info) Description 04/02/2016 Results Only [facility] [phone] Michael Garsia PA-C [address] [place] [address] Social History Tobacco Use Types Packs/Day Years Used Date Smoking Tobacco: Never Assessed Sex and Gender Information Value Date Recorded Sex Assigned at Not on file Gender Identity Male 03/24/2019 16:11 EST Sexual Orientation Not on file documented as of this encounter Plan of Treatment Not on file documented as of this encounter Procedures Procedure Name Priority Date/Time Associated Diagnosis Comments SURGICAL PATHOLOGY Routine 04/02/2016 16 :35 EST documented in this encounter Results * SURGICAL PATHOLOGY (04/02/2016 16:35 EST) Pathology Report: SURGICAL PATHOLOGY REPORT Reports generated via electronic interface contain original data; however they are lacking the format of the original report. Caution should be taken when reading/interpreting unformatted reports. Name: ? SHASTA SANZ ? Accession #: ? [id number] ? : ? 1970 (Age: 45) ??M ? Collect Date: ? 04/02/2016 ? Location: ? [facility] ? Receive Date: ? 04/03/2016 ? Provider: MICHAEL GARSIA PAC Copy to: ? Final Pathologic Diagnosis: SKIN OF THIGH, LEFT INNER, BIOPSY: - Verruca vulgaris. Microscopic Description: The stratum corneum is thickened by compact orthohyperkeratosis with tiers of parakeratosis and foci of hemorrhage. ??The epidermis is hyperplastic with papillomatosis and acanthosis. ??The acanthotic rete ridges have an inward-bending configuration. ??The superficial keratinocytes have perinuclear vacuoles. ??The granular layer is accentuated. ??(Dr. Cruz)/[facility] Document reviewed and electronically signed by: SUSHIL CRUZ MD Report ??Date: 04/04/2016 16:32 By the signature above, the attending physician certifies that he/she has personally conducted a gross and/or microscopic examination of the described specimens and rendered or confirmed the above diagnosis. Specimen(s) Received: Excision of lesion Clinical History: Left inner thigh three dimensional verruca lesion, irritated x1 month, 1.0 cm in diameter Gross Description: ? Received in formalin labelled with proper patient identification (initials C, J) and L thigh is a shave biopsy of a castillo-brown to white lesion (1.5 x 0.8 x 0.5 cm). The specimen is inked, trisected, and submitted in 1. ZANE Nj (ASCP) 04/03/2016 5:19 PM End of Report [facility] 04/02/2016 16:3 5 EST 04/03/2016 16:35 EST Michael Garsia PA-C PATHOLOGY ORDERAB LES [facility] [address] [place] [address] documented in this encounter Visit Diagnoses Not on filedocumented in this encounter Care Teams Access Service Representative Relationship Specialty Start Date End Date Migdalia Mtz MD [address] [place] [phone] PCP - General 12/29/14 documented as of this encounter
--- OUTSIDE RECORDS SUMMARY | 2023-10-07 20:54 | XMS_ITS | Encounter Summary ---
Author Organization [facility] Address [facility] [place] [address] Care Team Providers Care Repeat Photocomposing Machine Operator Name Role Phone Jayashree Holly MD Primary Care Provider [phone] Encounter Details Date Type Department Care Team ([facility] st Contact Info) Description 12/25/2010 Orders [place] [address] Liv Andino MD [facility] [place] [address] Social History Tobacco Use Types Packs/Day Years [...] on filedocumented in this encounter Care Teams Repeat Photocomposing Machine Operator Relationship Specialty Start Date End Date Jayashree Holly MD HOSPITAL[facility] [address] [place] [address] [place] [address] PCP - General 09/20/10 04/11/13 documented as of this encounter
--- OUTSIDE RECORDS SUMMARY | 2023-10-07 20:54 | XMS_ITS | Encounter Summary ---
Author Organization [facility] Address [address] [place] [address] Care Team Providers Care Educational/Development Assistant Name Role Phone Migdalia Mtz MD Primary Care Provider [phone] Linwood Sanchez MD Unavailable [phone] Reason for Visit * Reason Comments Other Encounter Details Date Type Department Care Team ([facility] Contact Info) Description 01/11/2021 Refill [facility] Cardiology Clinic [address] [place] [address] Linwood Sanchez MD [address] [facility] MOB[address]A [address] [place] [address] Other Social History Tobacco Use [...] TABLET BY MOUTH EVERY DAY 90 Tablet 01/11/2021 04/18/2021 documented in this encounter Plan of Treatment Not on file documented as of this encounter Visit Diagnoses Not on filedocumented in this encounter Discontinued Medications Medication Sig Discontinue Reason Start Date End Da te atorvastatin (LIPITOR) 20 mg tablet Take 1 Tablet by mouth daily. 10/04/2020 01/11/2021 documented as of this encounter Care Teams Educational/Development Assistant Relationship Specialty Start Date End Date Migdalia Mtz MD [address] [place] [phone] PCP - General 12/29/14 Linwood Sanchez MD [address] [place] [phone] Cardiovascular Disease 01/29/21 documented as of this encounter
--- OUTSIDE RECORDS SUMMARY | 2023-10-07 20:54 | XMS_ITS | Encounter Summary ---
Author Organization [facility] Address [address] [place] [address] Care Team Providers Care Grill Chef Name Role Phone Migdalia Mtz MD Primary Care Provider [phone] Linwood Sanchez MD Unavailable [phone] Reason for Visit * Reason Comments Other Encounter Details Date Type Department Care Team ([facility] Contact Info) Description 04/06/2021 Refill [facility] [address] [place] [address] Linwood Sanchez MD [address] [place] [address] [address] [place] [address] Other Social History Tobacco Use [...] TABLET BY MOUTH EVERY DAY 90 Tablet 04/08/2021 07/04/2021 documented in this encounter Miscellaneous Notes * Telephone Encounter - José Castellanos - 04/09/2021 0847 EST Appt sched with pt for 05/15/21; 8:15 am. Letter mailed also documented in this encounter Plan of Treatment Not on file documented as of this encounter Visit Diagnoses Not on filedocumented in this encounter Discontinued Medications Medication Sig Discontinue Reason Start Date End Da te isosorbide MONOnitrate (IMDUR) 30 mg CR tablet TAKE ONE TABLET BY MOUTH EVERY DAY 01/14/2021 04/08/2021 documented as of this encounter Care Teams Grill Chef Relationship Specialty Start Date End Date Migdalia Mtz MD [address] [place] [phone] PCP - General 12/29/14 Linwood Sanchez MD [address] [place] [address] [phone] Cardiovascular Disease 01/29/21 documented as of this encounter
--- OUTSIDE RECORDS SUMMARY | 2023-10-07 20:54 | XMS_ITS | Encounter Summary ---
Author Organization [facility] Address [address] [place] [address] Care Team Providers Care Chrome Polisher Name Role Phone Migdalia Mtz MD Primary Care Provider [phone] Reason for Visit * Reason Onset Date Comments No Show 03/28/2019 Encounter Details Date Type Department Care Team (Late st Contact Info) Description 03/28/2019 Telephone [facility] Card[facility] Clinic [address] [place] [address] Linwood Sanchez MD 130 [facility]OB[facility] [place] [phone] No Show Social History Tobacco Use Types Packs/Day Years Used Date Smoking Tobacco: Never Assessed Sex and Gender Information Value Date Recorded Sex Assigned at Not on file Gender Identity Male 03/24/2019 16:11 EST Sexual Orientation Not on file documented as of this encounter Miscellaneous Notes * Telephone Encounter - José Castellanos - 03/28/2019 1520 EST [id number] re: no show appt for 03/28/19 and to call back to schedule. documented in this encounter Plan of Treatment Not on file documented as of this encounter Visit Diagnoses Not on filedocumented in this encounter Care Teams Chrome Polisher Relationship Specialty Start Date End Date Migdalia Mtz MD [address] [place] [phone] PCP - General 12/29/14 documented as of this encounter
--- OUTSIDE RECORDS SUMMARY | 2023-10-07 20:54 | XMS_ITS | Encounter Summary ---
Author Organization [facility] Address [address] [place] [address] Care Team Providers Care Dairy Scientist Name Role Phone Migdalia Mtz MD Primary Care Provider [phone] Linwood Sanchez MD Unavailable [phone] Encounter Details Date Type Department Care Team (Late st Contact Info) Description 09/12/2019 Lab Requisition [facility] Pathology & Laboratory Medicine - [address] [phone] Outr Resulting Lab, Provider Social History Tobacco [...] Priority Date/Time Associated Diagnosis Comments PROLACTIN Routine 09/09/2019 15:48 EDT documented in this encounter Results * (ABNORMAL) PROLACTIN (09/09/2019 15:48 EDT) Prolactin 22.8(H) 2.1 - 17.7 ng/mL 09/13/2019 9:06 EDT [facility] Blood VENOUS BLOOD / Unknown 09/09/2019 15:48 EDT 09/12/2019 21:16 EDT Provider Outr Resulting Lab CHEMISTRY & BLOOD GAS ORDERABLES [facility] [address] [place] [address] documented in this encounter Visit Diagnoses Not on filedocumented in this encounter Care Teams Dairy Scientist Relationship Specialty Start Date End Date Migdalia Mtz MD [address] [place] [phone] PCP - General 12/29/14 Linwood Sanchez MD [address] [place] [address] [address] [place] [address] Cardiovascular Disease 01/29/21 documented as of this encounter
--- OUTSIDE RECORDS SUMMARY | 2023-10-07 20:54 | XMS_ITS | Encounter Summary ---
Author Organization [facility] Address [address] [place] [address] Care Team Providers Care Micropaleontologist Name Role Phone Migdalia Mtz MD Primary Care Provider [phone] Linwood Sanchez MD Unavailable [phone] Encounter Details Date Type Department Care Team (Late st Contact Info) Description 11/29/2020 Lab Requisition [facility] Pathology & Laboratory Medicine - [address] [id number] Outr Resulting Lab, Provider Social History Tobacco [...] Comments ZZCOVID-19 TEST [facility] PCR Today 11/28/2020 14:45 EDT COVID-19 TESTING Routine 11/28/2020 14:4 5 EDT documented in this encounter Results * COVID-19 TEST [facility] PCR (11/28/2020 14:45 EDT) Swab ENTIRE NASOPHARYNX / Unknown 11/28/2020 14:45 EDT 11/29/2020 17:11 EDT Provider Outr Resulting Lab MICROBIOLOGY - GENERAL ORDERABLES [facility] [address] [place] [address] * COVID-19 TESTING (11/28/2020 14:45 EDT) COVID-19 rt-PCR Result Negative Negative 11/30/2020 12:02 EDT [facility] Comment: This test has not [...] clinical observations, patient history, and epidemiological information. Testing was performed using the salena SARS-CoV-2 assay ([employer] on the Salena 6800 System Performing Lab [facility] 11/30/2020 12:02 EDT [facility] Swab 11/28/2020 14:4 5 EDT 11/29/2020 17:11 EDT Provider Outr Resulting Lab MICROBIOLOGY - GENERAL ORDERABLES [facility] [address] [place] [address] documented in this encounter Visit Diagnoses Not on filedocumented in this encounter Care Teams Micropaleontologist Relationship Specialty Start Date End Date Migdalia Mtz MD [address] [place] [phone] PCP - General 12/29/14 Linwood Sanchez MD [address] [place] [address] [address] [place] [phone] Cardiovascular Disease 01/29/21 documented as of this encounter
--- OUTSIDE RECORDS SUMMARY | 2023-10-07 20:54 | XMS_ITS | Encounter Summary ---
Author Organization [facility] Address [address] [place] [address] Care Team Providers Care Tectonophysicist Name Role Phone Migdalia Mtz MD Primary Care Provider [phone] Linwood Sanchez MD Unavailable [phone] Reason for Visit * Reason Comments Other Encounter Details Date Type Department Care Team ([facility] Contact Info) Description 01/11/2021 Refill [facility] Cardiology Clinic [address] [place] [address] Linwood Sanchez MD [address] [place] [address] [address] [place] [address] Other Social History Tobacco Use [...] TABLET BY MOUTH EVERY DAY 90 Tablet 01/14/2021 04/08/2021 documented in this encounter Plan of Treatment Not on file documented as of this encounter Visit Diagnoses Not on filedocumented in this encounter Discontinued Medications Medication Sig Discontinue Reason Start Date End Da te isosorbide MONOnitrate (IMDUR) 30 mg CR tablet Take 1 Tablet by mouth daily. 10/04/2020 01/14/2021 documented as of this encounter Care Teams Tectonophysicist Relationship Specialty Start Date End Date Migdalia Mtz MD [address] [place] [phone] PCP - General 12/29/14 Linwood Sanchez MD [address] [place] [address] [address] [place] [address] Cardiovascular Disease 01/29/21 documented as of this encounter
--- OUTSIDE RECORDS SUMMARY | 2023-10-07 20:54 | XMS_ITS | Encounter Summary ---
Author Organization [facility] [place] [address] Care Team Providers Care Medical Legal Investigator Name Role Phone Jayashree Holly MD Primary Care Provider [phone] Reason for Visit * Reason Comments Medication Refill Encounter Details Date Type Department Care Team ([facility] st Contact Info) Description 03/06/2012 [place] [address] Liv Andino MD [facility] [place] [address] Social History Tobacco Use Types Packs/Day Years [...] filedocumented in this encounter Care Teams Medical Legal Investigator Relationship Specialty Start Date End Date Jayashree Holly MD [facility]PITAL[facility] [address] [place] [address] PCP - General 09/20/10 04/11/13 documented as of this encounter
--- OUTSIDE RECORDS SUMMARY | 2023-10-07 20:54 | XMS_ITS | Encounter Summary ---
Author Organization [facility] Address [address] [place] [address] Care Team Providers Care Wall Insulation Sprayer Name Role Phone Migdalia Mtz MD Primary Care Provider [phone] Linwood Sanchez MD Unavailable [phone] Reason for Visit * Reason Comments Other Encounter Details Date Type Department Care Team ([facility] Contact Info) Description 07/28/2021 Refill [facility] Cardiology Clinic [address] [place] [address] Linwood Sanchez MD [address] [facility] [address] [place] [address] Other Social History Tobacco [...] Dispensed Refills Start Date End Da te amLODIPine (NORVASC) 5 mg tablet TAKE ONE TABLET BY MOUTH EVERY DAY 90 Tablet 07/29/2021 10/29/2021 documented in this encounter Plan of Treatment Not on file documented as of this encounter Visit Diagnoses Not on filedocumented in this encounter Discontinued Medications Medication Sig Discontinue Reason Start Date End Da te amLODIPine (NORVASC) 5 mg tablet TAKE ONE TABLET BY MOUTH EVERY DAY 04/19/2021 07/29/2021 documented as of this encounter Care Teams Wall Insulation Sprayer Relationship Specialty Start Date End Date Migdalia Mtz MD [address] [place] [phone] PCP - General 12/29/14 Linwood Sanchez MD [address] [place] [phone] Cardiovascular Disease 01/29/21 documented as of this encounter
--- OUTSIDE RECORDS SUMMARY | 2023-10-07 20:54 | XMS_ITS | Encounter Summary ---
Author Organization [facility] [place] [address] Care Team Providers Care Field Pipe Lines Supervisor Name Role Phone Jayashree Holly MD Primary Care Provider [phone] Reason for Visit * Reason Comments Medication Refill Encounter Details Date Type Department Care Team ([facility] st Contact Info) Description 12/10/2011 Ref[place] [address] Liv Andino MD [facility] [place] [address] HTN (hypertension) Social History Tobacco Use Types Packs/Day Years [...] as of this encounter Visit Diagnoses Diagnosis HTN (hypertension) Unspecified essential hypertension documented in this encounter Care Teams Field Pipe Lines Supervisor Relationship Specialty Start Date End Date Jayashree Holly MD HOSPITALIST SERVICES [address] [place] [address] PCP - General 09/20/10 04/11/13 documented as of this encounter
--- OUTSIDE RECORDS SUMMARY | 2023-10-07 20:54 | XMS_ITS | Encounter Summary ---
Author Organization [facility] Address [address] [place] [address] Care Team Providers Care Medical Staff Assistant Name Role Phone Migdalia Mtz MD Primary Care Provider [phone] Reason for Visit * Reason Comments Other Encounter Details Date Type Department Care Team (Late st Contact Info) Description 05/24/2020 Refill [facility] [address] [place] [address] Linwood Sanchez MD [address] [place] [address]-[address] [place] [phone] Other Social History Tobacco Use Types [...] Telephone Encounter - Amada Hartmann RN - 05/25/2020 0838 EDT Was refilled yesterday morning. Called pharmacy and confirmed that they received it. Will deny new request. documented in this encounter Plan of Treatment Not on file documented as of this encounter Visit Diagnoses Not on filedocumented in this encounter Care Teams Medical Staff Assistant Relationship Specialty Start Date End Date Migdalia Mtz MD [facility] [address] [phone] PCP - General 12/29/14 documented as of this encounter
--- OUTSIDE RECORDS SUMMARY | 2023-10-07 20:54 | XMS_ITS | Encounter Summary ---
Author Organization [facility] Address [address] [place] [address] Care Team Providers Care Clutch Rebuilder Name Role Phone Migdalia Mtz MD Primary Care Provider [phone] Linwood Sanchez MD Unavailable [phone] Reason for Visit * Reason Comments Other Encounter Details Date Type Department Care Team ([facility] Contact Info) Description 10/28/2021 Refill [facility] Cardiology Clinic [address] [place] [address] Linwood Sanchez MD [address] [facility] [address] [place] [address] Other Social History Tobacco Use [...] BY MOUTH EVERY DAY 90 Tablet 3 10/29/2021 10/20/2022 documented in this encounter Plan of Treatment Not on file documented as of this encounter Visit Diagnoses Not on filedocumented in this encounter Discontinued Medications Medication Sig Discontinue Reason Start Date End Da te amLODIPine (NORVASC) 5 mg tablet TAKE ONE TABLET BY MOUTH EVERY DAY 07/29/2021 10/29/2021 documented as of this encounter Care Teams Clutch Rebuilder Relationship Specialty Start Date End Date Migdalia Mtz MD [address] [phone] PCP - General 12/29/14 Linwood Sanchez MD [address] [place] [address] [address] [place] [phone] Cardiovascular Disease 01/29/21 documented as of this encounter
--- OUTSIDE RECORDS SUMMARY | 2023-10-07 20:54 | XMS_ITS | Encounter Summary ---
Author Organization [facility] [place] [address] Care Team Providers Care Catalytic Converter Operator Name Role Phone AvniJayashree MD Primary Care Provider [phone] Reason for Visit * Reason Onset Date Comments Other 12/24/2010 Encounter Details Date Type Department Care Team (Late st Contact Info) Description 12/24/2010 Telephone [place] [phone] Liv Andino MD [facility] [place] [address] Other Social History Tobacco Use Types Packs/Day [...] Telephone Encounter - Lucero Montanez LPN - 12/24/2010 11:20 AM EDT Liv Andino MD - high PRL & new pre-DM=> already sent scripts for pt today ','<More Detail >> From Liv Andino MD Sent Thursday December 23, 2010 4:52 PM To [facility] Subject high PRL & new pre-DM=> already sent scripts for pt today Message Partial lab results after visit today showed high PRL (72.8) and pre-DM (A1c 5.9%). So, we will start him on cabergoline 0.5 mg 2x/week and metforminER 500 mg qd increasing gradually to 1500 mg/day. (scripts were e-faxed to his pharmacy). Please let him know (not available on phone when I tried to call him this pm). Thanks. LIV ANDINO MD Patient Demographics Patient Name Sex SSN Address Phone Darvin Sanz Male 1970 Called patient at which time message from Dr Andino was read to him. Patient agrees with plan ofcare and knows to call should he develops any adverse effect to medication or if other assistance is needed documented in this encounter Plan of Treatment Not on file documented as of this encounter Visit Diagnoses Not on filedocumented in this encounter Care Teams Catalytic Converter Operator Relationship Specialty Start Date End Date Jayashree Holly MD HOSPITALIST SERVICES [address] [place] [address] [place] [address] PCP - General 09/20/10 04/11/13 documented as of this encounter
--- OUTSIDE RECORDS SUMMARY | 2023-10-07 20:54 | XMS_ITS | Encounter Summary ---
Author Organization [facility] Address [address] [place] [address] Care Team Providers Care Silo Tender Name Role Phone Migdalia Mtz MD Primary Care Provider [phone] Linwood Sanchez MD Unavailable [phone] Reason for Visit * Reason Comments Other Encounter Details Date Type Department Care Team ([facility] Contact Info) Description 04/19/2021 Refill [facility] Cardiology Clinic [address] [place] [address] Linwood Sanchez MD [address] [place] [address] [address] [place] [address] Other Social History Tobacco Use [...] TABLET BY MOUTH EVERY DAY 90 Tablet 04/19/2021 07/29/2021 documented in this encounter Plan of Treatment Not on file documented as of this encounter Visit Diagnoses Not on filedocumented in this encounter Discontinued Medications Medication Sig Discontinue Reason Start Date End Da te amLODIPine (NORVASC) 5 mg tablet TAKE ONE TABLET BY MOUTH EVERY DAY 01/15/2021 04/19/2021 documented as of this encounter Care Teams Silo Tender Relationship Specialty Start Date End Date Migdalia Mtz MD [address] [place] [phone] PCP - General 12/29/14 Linwood Sanchez MD [address] [place] [phone] Cardiovascular Disease 01/29/21 documented as of this encounter
--- OUTSIDE RECORDS SUMMARY | 2023-10-07 20:54 | XMS_ITS | Encounter Summary ---
Author Organization [facility] Address [address] [place] [address] Care Team Providers Care Magazine Publisher Name Role Phone Migdalia Mtz MD Primary Care Provider [phone] Linwood Sanchez MD Unavailable [phone] Reason for Visit * Reason Comments Other Encounter Details Date Type Department Care Team ([facility] st Contact Info) Description 07/04/2021 Refill [facility] Cardiology Clinic [address] [place] [address] Linwood Sanchez MD [address] [facility] [address] [place] [address] Other Social History Tobacco Use [...] Encounter - Jagruti Barker RN - 07/04/2021 1331 EDT Requested refill denied, Mr. Sanz needs a follow up appointment first. Attempts to call patient VM mailbox is full. Tiff hussein [place] [employer] is aware. * Telephone Encounter - Jagruti Barker RN - 07/04/2021 1330 EDT Scheduling aware patient is in need of appointment in the office. * Telephone Encounter - Jagruti Barker RN - 07/04/2021 8655 EDT Patient last seen 04/[address] Sanchez, since that time has had 4 no shows after requesting RX refills. 1 cancellation. Attempts to call patient VM mailbox is full and cannot leave a message. Spoke to Tiff at [facility] and she is aware. documented in this encounter Plan of Treatment Not on file documented as of this encounter Visit Diagnoses Not on filedocumented in this encounter Care Teams Magazine Publisher Relationship Specialty Start Date End Date Migdalia Mtz MD [address] [place] [phone] PCP - General 12/29/14 Linwood Sanchez MD [address] [place] [address] [address] [place] [address] Cardiovascular Disease 01/29/21 documented as of this encounter
--- OUTSIDE RECORDS SUMMARY | 2023-10-07 20:54 | XMS_ITS | Encounter Summary ---
Author Organization [facility] Address [address] [place] [address] Care Team Providers Care Robotic Welder Name Role Phone Migdalia Mtz MD Primary Care Provider Reason for Visit * Reason Onset Date Comments Medications Refill 10/04/2020 Encounter Details Date Type Department Care Team ([facility] st Contact Info) Description 10/04/2020 Telephone [facility] Cardiology Clinic [address] [place] [address] Jagruti Barker RN Medications Refill Social History Tobacco Use [...] Da te amLODIPine (NORVASC) 5 mg tablet Take 1 Tablet by mouth daily. 90 Tablet 10/04/2020 01/15/2021 isosorbide MONOnitrate (IMDUR) 30 mg CR tablet Take 1 Tablet by mouth daily. 90 Tablet 10/04/2020 01/14/2021 atorvastatin (LIPITOR) 20 mg tablet Take 1 Tablet by mouth daily. 90 Tablet 10/04/2020 01/11/2021 documented in this encounter Miscellaneous Notes * Telephone Encounter - Mirela Burt - 10/12/2020 5684 EDT Appt for 01/29 * Telephone Encounter - José Castellanos - 10/12/2020 1333 EDT Left message on patients voicemail to call back * Telephone Encounter - José Castellanos - 10/05/2020 1105 EDT Left message on patients voicemail to call back to schedule overdue FU with Dr. Sanchez * Telephone Encounter - Jagruti Barker, RN - 10/04/2020 1328 EDT Patient not seen in office 05/18/19. VM message left with patient to call office for a follow up appointment. 90 day supply of medications sent to pharmacy. Routed to scheduling to Please call and set up follow up appointment. documented in this encounter Plan of Treatment Not on file documented as of this encounter Visit Diagnoses Not on filedocumented in this encounter Discontinued Medications Medication Sig Discontinue Reason Start Date End Da te amLODIPine (NORVASC) 5 mg tablet as directed orally once a day Reorder 09/27/2018 10/04/2020 isosorbide MONOnitrate (IMDUR) 30 mg CR tablet TAKE ONE TABLET BY MOUTH EVERY DAY Reorder 05/24/2020 10/04/2020 atorvastatin (LIPITOR) 20 mg tablet TAKE ONE TABLET BY MOUTH EVERY DAY Reorder 06/12/2020 10/04/2020 documented as of this encounter Care Teams Robotic Welder Relationship Specialty Start Date End Date Migdalia Mtz MD [address] [place] [phone] PCP - General 12/29/14 documented as of this encounter
--- OUTSIDE RECORDS SUMMARY | 2023-10-07 20:54 | XMS_ITS | Encounter Summary ---
Author Organization [facility] Address [address] [place] [address] Care Team Providers Care Glass Enamel Mixer Name Role Phone Migdalia Mtz MD Primary Care Provider [phone] Reason for Visit * Reason Onset Date Comments No Show 08/23/2019 Encounter Details Date Type Department Care Team (Late st Contact Info) Description 08/23/2019 Telephone [facility] Cardiology Clinic [address] [place] [address] Linwood Sanchez MD [address] [facility] MOB-A [address] [place] [phone] No Show Social History Tobacco Use Types Packs/Day Years Used Date Smoking Tobacco: Never Assessed Sex and Gender Information Value Date Recorded Sex Assigned at Not on file Gender Identity Male 03/24/2019 16:11 EST Sexual Orientation Not on file documented as of this encounter Miscellaneous Notes * Telephone Encounter - Sunshine Sterling - 08/23/2019 0956 EDT Left message for pt to contact the office to reschedule todays missed appt. documented in this encounter Plan of Treatment Not on file documented as of this encounter Visit Diagnoses Not on filedocumented in this encounter Care Teams Glass Enamel Mixer Relationship Specialty Start Date End Date Migdalia Mtz MD [address] [place] [phone] PCP - General 12/29/14 documented as of this encounter
--- OUTSIDE RECORDS SUMMARY | 2023-10-07 20:54 | XMS_ITS | Encounter Summary ---
Author Organization [facility] Address [address] [place] [address] Care Team Providers Care Compliance Review Officer Name Role Phone Migdalia Mtz MD Primary Care Provider [phone] Encounter Details Date Type Department Care Team ([facility] st Contact Info) Description 09/27/2018 Historical Results Only [facility] - Main [place] [address] [place] [address] Linwood Sanchez MD [address] [place] [address]-[address] [place] [address] Social History Tobacco Use Types Packs/Day Years Used Date Smoking Tobacco: Never Assessed Sex and Gender Information Value Date Recorded Sex Assigned at Not on file Gender Identity Male 03/24/2019 16:11 EST Sexual Orientation Not on file documented as of this encounter Plan of Treatment Not on file documented as of this encounter Procedures Procedure Name Priority Date/Time Associated Diagnosis Comments LIPID PROFILE (INCLUDES CHOLESTEROL, TRIGLYCERIDES, HDL, LDL) Routine 09/27/2018 11:05 EDT documented in this encounter Results * (ABNORMAL) LIPID PROFILE (INCLUDES CHOLESTEROL, TRIGLYCERIDES, HDL, LDL) (09/27/2018 11:05 EDT) Triglyceride 123 <150 mg/dL 09/27/2018 13:45 EDT [facility] Comment: Adult: Normal: ?<150 mg/dl ? Borderline High: 150-199 mg/dl ? High: ?200-499 mg/dl ? Very High: >pg=539 Cholesterol 137 <200 mg/dL 09/27/2018 13:45 EDT [facility] Comment: Acceptable: ??<200 Borderline: ??200-239 High: ?> or = 240 Chol/HDL Ratio 4.4 0 - 5.0 09/27/2018 13:45 [facility] Comment: DESIRABLE RATIO IS LESS THAN 4.1 PATIENTS ARE CONSIDERED AT RISK: WOMEN RATIO >5 MEN RATIO >6 FASTING? - [facility] HDL 31(L) 40 - 60 mg/dL 09/27/2018 13:45 [facility] Comment: ?? Reference Range Low: ? < 40 ??mg/dL Normal: ??40-60 mg/dL High: ?>= 60 mg/dL LDL CHOLESTEROL - [facility] 81 60 - 100 mg/dL 09/27/2018 13:45 [facility] Non HDL Cholesterol 106 mg/dl 09/27/2018 13:45 [facility] Comment: Desirable: ?Less than 130 Borderline High: ??130-159 High: ? 160-189 Very High: ?Greater than or equal to 190 09/27/2018 11:0 5 EDT 09/27/2018 11:05 EDT Narrative [facility] - 09/27/2018 13:45 EDT Does PT Have a Latex Allergy? NO Linwood Sanchez MD CHEMISTRY & BLOOD GA S ORDERABLES [facility] documented in this encounter Visit Diagnoses Not on filedocumented in this encounter Care Teams Compliance Review Officer Relationship Specialty Start Date End Date Migdalia Mtz MD [address] [place] [phone] PCP - General 12/29/14 documented as of this encounter
--- OUTSIDE RECORDS SUMMARY | 2023-10-07 20:54 | XMS_ITS | Encounter Summary ---
Author Organization [facility] Address [address] [place] [address] Care Team Providers Care Supervisor Facepiece Line Name Role Phone Migdalia Mtz MD Primary Care Provider [phone] Linwood Sanchez MD Unavailable Reason for Visit * Reason Comments Other Encounter Details Date Type Department Care Team (Late st Contact Info) Description [facility] [address] [place] [address] Linwood Sanchez MD [address] [place] [phone] Other Social History Tobacco Use Types [...] filedocumented in this encounter Care Teams Supervisor Facepiece Line Relationship Specialty Start Date End Date Migdalia Mtz MD [address] [phone] PCP - General 12/29/14 Linwood Sanchez MD [address] [place] [phone] Cardiovascular Disease 01/29/21 documented as of this encounter
--- OUTSIDE RECORDS SUMMARY | 2023-10-07 20:54 | XMS_ITS | Encounter Summary ---
Author Organization [facility] Address [address] [place] [address] Care Team Providers Care Scrap Crusher Name Role Phone Migdalia Mtz MD Primary Care Provider [phone] Linwood Sanchez MD Unavailable [phone] Encounter Details Date Type Department Care Team (Late st Contact Info) Description 06/18/2021 Lab Requisition [facility] Pathology & Laboratory Medicine - [facility] [address] [place], [place] [id number] Outr Resulting Lab, Provider Social History Tobacco [...] Procedure Name Priority Date/Time Associated Diagnosis Comments LYME AB Routine 06/18/2021 14:00 EDT ANTI NUCLEAR AB (MIGUEL), IFA Routine 06/18/2021 14:00 EDT documented in this encounter Results * LYME AB (06/18/2021 14:00 EDT) Lyme Ab Negative Negative 06/20/2021 10:35 EDT [facility] Blood VENOUS BLOOD / Unknown 06/18/2021 14:00 EDT 06/19/2021 17:18 EDT Provider Outr Resulting Lab IMMUNOLOGY A ND SEROLOGY ORDERABLES Performing Organization Address [facility] Co de Phone Number [facility] [address] [place] [address] * ANTI NUCLEAR AB (MIGUEL), IFA (06/18/2021 14:00 EDT) MIGUEL Interpretation Negative Negative 2021 15:05 EDT [facility] Comment:No titer performed, MIGUEL Screen is negative. Blood VENOUS BLOOD / Unknown 06/18/2021 14:00 EDT 06/19/2021 17:18 EDT Narrative [facility] - 06/20/2021 15:05 EDT Results were obtained with the INOVA NOVA Lite HEp-2 MIGUEL Kit by indirect immunofluorescence. Provider Outr Resulting Lab IMMUNOLOGY A ND SEROLOGY ORDERABLES Performing Organization Address [facility] Co de Phone Number [facility] [address] [place] [address] documented in this encounter Visit Diagnoses Not on filedocumented in this encounter Care Teams Scrap Crusher Relationship Specialty Start Date End Date Migdalia Mtz MD [address] [place] [phone] PCP - General 12/29/14 Linwood Sanchez MD [address] [place] [address]- [address] [place] [address] Cardiovascular Disease 01/29/21 documented as of this encounter
--- OUTSIDE RECORDS SUMMARY | 2023-10-07 20:54 | XMS_ITS | Encounter Summary ---
Author Organization [facility] Address [address] [place] [address] Care Team Providers Care Tuckpointer Name Role Phone Migdalia Mtz MD Primary Care Provider [phone] Encounter Details Date Type Department Care Team (Late st Contact Info) Description 09/18/2016 Results Only [facility]- [facility] [phone] Michael Garsia PA-C [address] [place] [address] Social History Tobacco Use Types [...] Date/Time Associated Diagnosis Comments SURGICAL PATHOLOGY Routine 09/18/2016 6:14 EDT documented in this encounter Results * SURGICAL PATHOLOGY (09/18/2016 6:14 EDT) Pathology Report: SURGICAL PATHOLOGY REPORT Reports generated via electronic interface contain original data; however they are lacking the format of the original report. Caution should be taken when reading/interpret ing unformatted reports. Name: ? SHASTA SANZ ? Accession #: ? [id number] ? : ? 1970 (Age: 45) ??M ? Collect Date: ? 09/18/2016 ? Location: ? [facility] ? Receive Date: ? 09/19/2016 ? Provider: MICHAEL GARSIA PAC Copy to: ? Final Pathologic Diagnosis: SKIN OF FOOT, RIGHT LATERAL, PUNCH BIOPSY: - Dermatofibroma. - Dermatofibroma present at peripheral and deep tissue edges. Microscopic Description: There is irregular epidermal hyperplasia with basal hyperpigmentation . ??Within the dermis, there is a spindle cell proliferation accompanied by histiocytes. The spindle cells have plump nuclei that vary to a mild degree in size and shape. ??The proliferation is associated with thick bundles of collagen (collagen trapping) and areas of sclerosis. ??(Dr. Cruz)/ljn Document reviewed and electronically signed by: SUSHIL CRUZ MD Report ??Date: 09/22/2016 19:24 By the signature above, the attending physician certifies that he/she has personally conducted a gross and/or microscopic examination of the described specimens and rendered or confirmed the above diagnosis. Specimen(s) Received: 5.0 mm punch bx Rt lateral foot Clinical History: Rt lateral foot lesion, raised, hard, skin colored, painful, 4.0 mm, well demarcated Gross Description: ? Received in formalin labelled with proper patient identification (initials C, J) and right lateral foot lesion is a punch biopsy of a stellate castillo-brown speckled macule (0.6 cm in diameter x 0.3 cm in thickness). The specimen is bisected and submitted entirely in 1. ZANE Nj (ASCP) 09/22/2016 7:42 AM End of Report [facility] 09/18/2016 6:14 EDT 09/19/2016 6:14 EDT Michael Garsia PA-C PATHOLOGY ORDERAB LES [facility] [address] [place] [address] documented in this encounter Visit Diagnoses Not on filedocumented in this encounter Care Teams Tuckpointer Relationship Specialty Start Date End Date Migdalia Mtz MD [address] [place] [phone] PCP - General 12/29/14 documented as of this encounter
--- OUTSIDE RECORDS SUMMARY | 2023-10-07 20:54 | XMS_ITS | Encounter Summary ---
Author Organization [facility] Address [address] [place] [address] Care Team Providers Care Police Judge Name Role Phone Migdalia Mtz MD Primary Care Provider [phone] Linwood Sanchez MD Unavailable [phone] Reason for Visit * Reason Comments Medications Refill Encounter Details Date Type Department Care Team ([facility] Contact Info) Description 10/17/2022 Refill [facility] [address] [place] [address] Linwood Sanchez MD [address] [place] [address] [address]OB[address] [place] [phone] Medications Refill Social History Tobacco Use Types [...] End Da te amLODIPine (NORVASC) 5 mg tabletIndications:Nonischem ic cardiomyopathy (HCC-CMS) TAKE ONE TABLET BY MOUTH EVERY DAY 90 Tablet 3 10/20/2022 documented in this encounter Miscellaneous Notes * Telephone Encounter - José Castellanos - 10/20/2022 0813 EDT Pt transferred care to [facility] as it is closer to home * Telephone Encounter - Pat Rivera RN - 10/20/2022 0767 EDT Medication(s) Requested: Amlodipine Preferred Pharmacy: [facility] Are visits in compliance? No, no f/u scheduled Last Refill Date: 10/29/2021 Recent Visits Date Type Provider Dept 09/10/21 Office Visit Linwood Sanchez MD [facility] Showing recent visits within past 540 days with a meds authorizing provider and meeting all other requirements Future Appointments No visits were found meeting these conditions. Showing future appointments within next 150 days with a meds authorizing provider and meeting all other requirements PAT RIVERA RN 10/20/2022 7:49 documented in this encounter Plan of Treatment Not on file documented as of this encounter Visit Diagnoses Diagnosis Nonischemic cardiomyopathy (HCC-CMS)- Primary Other primary cardiomyopathies documented in this encounter Discontinued Medications Medication Sig Discontinue Reason Start Date End Da te amLODIPine (NORVASC) 5 mg tablet TAKE ONE TABLET BY MOUTH EVERY DAY 10/29/2021 10/20/2022 documented as of this encounter Care Teams Police Judge Relationship Specialty Start Date End Date Migdalia Mtz MD [address] [place] [phone] PCP - General 12/29/14 Linwood Sanchez MD [address] [place] [address] [address] [place] [phone] Cardiovascular Disease 01/29/21 documented as of this encounter
--- OUTSIDE RECORDS SUMMARY | 2023-10-07 20:54 | XMS_ITS | Encounter Summary ---
Author Organization [facility] Address [address] [place] [address] Care Team Providers Care Central Services Tech Name Role Phone Migdalia Mtz MD Primary Care Provider [phone] Encounter Details Date Type Department Care Team (Late st Contact Info) Description 09/26/2015 Results Only [facility] [phone] Michael Garsia PA-C [address] [place] [address] Social History Tobacco Use Types [...] Date/Time Associated Diagnosis Comments SURGICAL PATHOLOGY Routine 09/26/2015 11 :13 EDT documented in this encounter Results * SURGICAL PATHOLOGY (09/26/2015 11:13 EDT) Pathology Report: SURGICAL PATHOLOGY REPORT Reports generated via electronic interface contain original data; however they are lacking the format of the original report. Caution should be taken when reading/interpret ing unformatted reports. Name: ? SHASTA SANZ ? Accession #: ? [id number] ? : ? 1970 (Age: 44) ??M ? Collect Date: ? 09/26/2015 ? Location: ? [facility] ? Receive Date: ? 09/27/2015 ? Provider: MICHAEL GARSIA PAC Copy to: ? Final Pathologic Diagnosis: SKIN OF LOWER EXTREMITY, LEFT, EXCISIONAL BIOPSY: - Dermatofibroma. ?? - Dermatofibroma present at peripheral margins. Microscopic Description: There is irregular epidermal hyperplasia with basal hyperpigmentation . ??Within the dermis, there is a spindle cell proliferation accompanied by histiocytes. The spindle cells have plump nuclei that vary to a mild degree in size and shape. ??The proliferation is associated with thick bundles of collagen (collagen trapping) and areas of sclerosis. ??(Dr. rCuz)/hernesto Document reviewed and electronically signed by: SUSHIL CRUZ MD Report ??Date: 10/01/2015 16:36 By the signature above, the attending physician certifies that he/she has personally conducted a gross and/or microscopic examination of the described specimens and rendered or confirmed the above diagnosis. Specimen(s) Received: Elliptical excision LLE ? Clinical History: LLE 3D lesion skin colored, increased size last 6 mos, approximately 5.0 mm well demarcated Gross Description: ? Received in formalin labelled with proper patient identification (initials C, J) and left lower extremity skin lesion is an unoriented elliptical excision of castillo-white hairbearing skin (1.1 x 0.8 cm and is excised to a depth of 0.5 cm). There is also an eccentric guo-brown mottled papule that measures 0.6 x 0.5 x 0.1 cm. The tissue underlying the papule is indurated with a white homogeneous cut surface. The margins are inked blue. The specimen is serially sectioned and entirely submitted as 1 central sections and 2 tips, reverse en face. Dr. Dakota Spencer 09/28/2015 4:11 PM End of Report [facility] 09/26/2015 11:1 3 EDT 09/27/2015 11:13 EDT Michael Garsia PA-C PATHOLOGY ORDERAB LES [facility] [address] [place] [address] documented in this encounter Visit Diagnoses Not on filedocumented in this encounter Care Teams Central Services Tech Relationship Specialty Start Date End Date Migdalia Mtz MD [address] [place] [phone] PCP - General 12/29/14 documented as of this encounter
--- OUTSIDE RECORDS SUMMARY | 2023-10-07 20:54 | XMS_ITS | Referral Summary ---
Author Organization [facility] Address [address] [place] [address] Care Team Providers Care Funeral Workers Name Role Phone Migdalia Mtz MD Primary Care Provider [phone] Linwood Sanchez MD Unavailable [phone] Allergies Active Allergy Reactions Criticality Noted Date [...] t be different from the original. 2021-09-10 [facility]- permission to speak with Jayashree Sanz (ex-) and Ligia aSnz (daughter) Problem Noted Date Diagnosed Date Essential hypertension 09/10/2021 Morbid obesity ([facility]) 09/10/2021 Nonischemic cardiomyopathy ([facility]) 05/18/2019 Left heart failure with left ejection fraction 41-49 percent ([facility]) 05/18/2019 Atherosclerosis of [place] co ronary artery of [place] heart without angina pectoris 05/18/2019 Mixed hyperlipidemia 05/18/2019 Smoker 05/18/2019 Atypical chest pain 05/18/2019 Social History Tobacco Use Types Packs/Day Years [...] 16:11 EST Sexual Orientation Not on file Last Filed [...] 68.08 09/10/2021 0954 EDT Plan of Treatment Not on file Care Teams Funeral Workers Relationship Specialty Start Date End Date Migdalia Mtz MD [facility] [employer] [address] [phone] PCP - General 12/29/14 Linwood Sanchez MD [address] [place] [phone] Cardiovascular Disease 01/29/21
--- OUTSIDE RECORDS SUMMARY | 2023-10-07 20:54 | XMS_ITS | Encounter Summary ---
Author Organization [facility] Address [address] [place] [address] Care Team Providers Care Ortho Nurse Name Role Phone Migdalia Mtz MD Primary Care Provider [phone] Linwood Sanchez MD Unavailable [phone] Reason for Visit * Reason Comments Other Encounter Details Date Type Department Care Team ([facility] Contact Info) Description 01/14/2021 Refill [facility] [address] [place] [address] Linwood Sanchez MD [address] [place] [address] MOB[address]A [address] [place] [phone] Other Social History Tobacco Use [...] TABLET BY MOUTH EVERY DAY 90 Tablet 01/15/2021 04/19/2021 documented in this encounter Plan of Treatment Not on file documented as of this encounter Visit Diagnoses Not on filedocumented in this encounter Discontinued Medications Medication Sig Discontinue Reason Start Date End Da te amLODIPine (NORVASC) 5 mg tablet Take 1 Tablet by mouth daily. 10/04/2020 01/15/2021 documented as of this encounter Care Teams Ortho Nurse Relationship Specialty Start Date End Date Migdalia Mtz MD [address] [place] [phone] PCP - General 12/29/14 Linwood Sanchez MD [address] [place] [phone] Cardiovascular Disease 01/29/21 documented as of this encounter
--- OUTSIDE RECORDS SUMMARY | 2023-10-07 20:54 | XMS_ITS | Encounter Summary ---
Author Organization [facility] Address [address] [place] [address] Care Team Providers Care Poultry Packer Name Role Phone Migdalia Mtz MD Primary Care Provider Reason for Visit * Reason Comments Other Encounter Details Date Type Department Care Team ([facility] st Contact Info) Description 11/22/2019 Refill [facility] [address] [place] [address] Linwood Sanchez MD [address] [place] [address]-[address] [place] [address] Other Social History Tobacco Use [...] TABLET BY MOUTH EVERY DAY 90 Tab 1 11/22/2019 06/12/2020 documented in this encounter Miscellaneous Notes * Telephone Encounter - Lizzy Solis RN - 11/22/2019 3807 EDT Requested refill approved, Mr. Sanz needs a follow up appointment. documented in this encounter Plan of Treatment Not on file documented as of this encounter Visit Diagnoses Not on filedocumented in this encounter Discontinued Medications Medication Sig Discontinue Reason Start Date End Da te atorvastatin (LIPITOR) 20 mg tablet 03/05/2019 11/22/2019 documented as of this encounter Care Teams Poultry Packer Relationship Specialty Start Date End Date Migdalia Mtz MD [address] [place] [phone] PCP - General 12/29/14 documented as of this encounter
--- OUTSIDE RECORDS SUMMARY | 2023-10-07 20:55 | XMS_ITS | Encounter Summary ---
Author Organization [facility] Address [address] [place] [address] Care Team Providers Care Botany Professor Name Role Phone Unavailable Primary Care Provider Unavailabl e Encounter Details Date Type Department Care Team (Late st Contact Info) Description 10/07/2000 Results Only [facility] [address] [place] [address] Thiago Cisneros MD [address] [place] [address] Social History Tobacco Use Types Packs/Day Years [...] Date/Time Associated Diagnosis Comments SURGICAL PATHOLOGY Routine 10/07/2000 0:00 EDT documented in this encounter Results * SURGICAL PATHOLOGY (10/07/2000 0:00 EDT) Pathology Report: SURGICAL PATHOLOGY REPORT Reports generated via electronic interface contain original data; however they are lacking the format of the original report. Caution should be taken when reading/interpreti ng unformatted reports. Name: ? SHASTA SANZ ? Accession #: ? [id number] ? : ? 1970 (Age: 29) ??M ? Collect Date: ? 10/07/2000 ? Location: ? [facility] ? Receive Date: ? 10/08/2000 ? Provider: THIAGO CISNEROS MD Copy to: AMOR EDGROOT WEBSPHERE ADMINISTRATOR ? Final Pathologic Diagnosis: ? Esophagus, biopsy: - Mild reactive epithelial changes consistent with reflux esophagitis. Document reviewed and electronically signed by: Michelle Fonseca [facility] Report ??Date: 10/12/2000 18:59 By the signature above, the attending physician certifies that he/she has personally conducted a gross and/or microscopic examination of the described specimens and rendered or confirmed the above diagnosis. Specimen(s) Received: ? Bx esophagus 35 cm Clinical History: ? Ob stool; epigastric pain Gross Description: ? Received in Hollande' s fixative labelled Yvon and esophagus bx 35 cm is a 0.6 x 0.4 x 0.3 cm aggregate of multiple irregularly shaped soft tissue fragments. ??The specimens are entirely submitted in one cassette. ??(Naty Madrigal)/bettie End of Report [facility] 10/07/2000 10/08/2000 15: 32 EDT Thiago Cisneros MD PATHOLOGY ORDERABLE S [facility] [address] [place] [address] documented in this encounter Visit Diagnoses Not on filedocumented in this encounter
--- OUTSIDE RECORDS SUMMARY | 2023-10-07 20:55 | XMS_ITS | Encounter Summary ---
Author Organization [facility] Address [address] [place] [address] Care Team Providers Care Olap Developer Name Role Phone Unavailable Primary Care Provider Unavailabl e Encounter Details Date Type Department Care Team (Latest Contact Info) Description 05/18/2002 14:57 EST - 05/20/2002 11:59 EST Hospital Encounter [facility] Neuro[facility] [address] [place], [place] [address] Neil Perez MD [address] [phone] Discharge Disposition: Home or Self Care Social [...] Procedure Name Priority Date/Time Associated Diagnosis Comments ZZBLOOD GAS, G3 ISTAT Routine 05/19/2002 0:27 EST documented in this encounter Results * (ABNORMAL) BLOOD GAS, G3 ISTAT (05/19/2002 0:27 EST) pH, i-STAT 7.31(L) 7.35 - 7.45 [facility] pCO2, i-STAT 53(H) 35 - 45 mmHg [facility] pO2, i-STAT 230(H) 85 - 100 mmHg [facility] TCO2, i-STAT 29 mEq/L [facility] O2 Saturation 100 % J [facility] Temperature 35.4 C [facility] FIO2 .50 [facility] Sample Type Arterial [facility] silverer [place] [id number] Test Performed by Respiratory [facility] 05/19/2002 0:27 EST 05/19/2002 14:20 EST Neil Perez MD CHEMISTRY & BLOOD GA S ORDERABLES Performing Organization Address City/State/[facility] Co de Phone Number [facility] [address] [place] [address] documented in this encounter Visit Diagnoses Not on filedocumented in this encounter
--- OUTSIDE RECORDS SUMMARY | 2023-10-07 20:55 | XMS_ITS | Encounter Summary ---
Author Organization [facility] Address [address] [place] [address] Care Team Providers Care Foot Doctor Name Role Phone Unavailable Primary Care Provider Unavailabl e Encounter Details Date Type Department Care Team (Late st Contact Info) Description 05/18/2002 Results Only Used for SCHED Conversion Only Shant Perez MD [address] [facility] [address] [place] [address] Social History Tobacco Use Types Packs/Day Years [...] Date/Time Associated Diagnosis Comments SURGICAL PATHOLOGY Routine 05/18/2002 0:00 EST documented in this encounter Results * SURGICAL PATHOLOGY (05/18/2002 0:00 EST) Pathology Report: SURGICAL PATHOLOGY REPORT Reports generated via electronic interface contain original data; however they are lacking the format of the original report. Caution should be taken when reading/interpreti ng unformatted reports. Name: ? SHASTA SANZ ? Accession #: ? [id number] ? : ? 1970 (Age: 31) ??M ? Collect Date: ? 05/18/2002 ? Location: ? [facility] ? Receive Date: ? 05/19/2002 ? Provider: SHANT PEREZ MD Copy to: JOSE ARMANDO PONCE MD ? Final Pathologic Diagnosis: ? Eye, (side not specified), tissue, evisceration: 1. ?Corneal scarring. 2. ?Pupillary membrane. 3. ?Retinal detachment. 4. ?Disorganization of ocular contents. Comment: ? Dr. Amarjit Loya has reviewed this case in consultation. ??He makes note of the corneal scarring and a dense, fibrous membrane crossing the pupil and filling the anterior chamber. ??This represents the pupillary membrane. ??(Dr. Wiley)/[facility]. Document reviewed and electronically signed by: SHASTA WILEY MD Report ??Date: 05/23/2002 17:32 By the signature above, the attending physician certifies that he/she has personally conducted a gross and/or microscopic examination of the described specimens and rendered or confirmed the above diagnosis. Specimen(s) Received: ? Evisceration tissue specimen Clinical History: ? S/P corneal puncture Gross Description: ? Received in normal saline labelled Yvon and evisceration tissue is a 1.5 x 1.5 x 0.5 cm anterior portion of the eye with a 1.0 cm attached cornea. The sclera is diffusely congested. ??There is abundant underlying hemorrhage. Within the hemorrhagic, underlying tissue is 0.6 cm, clear, convex disc consistent with a synthetic lens. ??Two cross sections of the specimen are submitted as (A1) and (A2). ??(Naty Pedraza/alex End of Report [facility] 05/18/2002 05/19/2002 8:3 5 EST Shant Perez MD PATHOLOGY ORDERABLES [facility] [address] [place] [address] documented in this encounter Visit Diagnoses Not on filedocumented in this encounter
== END 2023-10-07 20:48 | disposition home or self-care (01) ==
LOC: NCHCN 20:47
PROVIDERS: PCP Physician Assistant Medical; Visit Provider Physician Assistant Medical
DX: E78.5 Hyperlipidemia, unspecified (principal); E11.9 Type 2 diabetes mellitus without complications
CPT/HCPCS: 80053; 80061; 83036

== ENCOUNTER 2024-05-03 01:07 | Outpatient (CLI) | payer MEDICARE, MEDICAID, SELFPAY ==
--- NOTE | 2024-05-03 | DI.RAD_ITS ---
Exam(s) XR LUMBAR SPINE COMPLETE EXAM: XR LUMBAR SPINE COMPLETE CLINICAL HISTORY: CHRONIC PAIN SYNDROME,G89.4. TECHNIQUE: 2D digital imaging was performed. COMPARISON: CT LUMBAR SPINE SI JOINTS WO from 11/27/2014 CR XR HIP LT COMPLETE AP PELVIS from 04/30/2022 FINDINGS: Five views. There is no evidence of fracture, listhesis, nor pars defects and there is no significant disc space narrowing in the lumbar spine. Mild anterior osseous lipping at L1-2 level is noted. Mild degenerat callum changes in the facet joints of the lower 2 levels. There is no scoliosis. Bone density normal. No osseous lesions. Some degenerative changes in the sacroiliac joints noted. Again noted is a metallic foreign body within the left side of the pelvis, similar location to previo us. This is shown to be within the supra-acetabular bone on the left side of the pelvis as seen on C T scan of 11/27/2014. There are degenerative subarticular cysts in the left hip and advanced arthrit ic left hip joint space narrowing partially included in the field of view. IMPRESSION: No significant disc space narrowing in the lumbar spine no fracture or listhesis. Severe osteoarthritic degenerative changes in the left hip which have progressed since 2014 and there is again noted a screw in the super acetabular left iliac bone. DATA REPOSITORY: RADIATION DOSE DELIVERED:
== END 2024-05-03 01:27 ==
LOC: DI 01:07
PROVIDERS: PCP Physician Assistant Medical; Visit Provider Physician Assistant Medical
DX: M16.12 Unilateral primary osteoarthritis, left hip (principal)
CPT/HCPCS: 72110

== ENCOUNTER 2024-08-11 06:00 | Inpatient (IN) | payer MEDICARE, MEDICAID, SELFPAY ==
[2024-08-11] VITALS (47 sets, daily range): BP systolic 162–233; BP diastolic 82–208; PULSE 64–94; RESP 15–35; TEMP 35.7–36.6; O2SAT 87–95
--- NOTE | 2024-08-11 05:53 | W.ED.GENAD ---
Discharge Plan Discharge Details Chief Complaint: RespSymp Primary Care Provider: Татьяна Koehler ED Provider: Harshal Sahu [place] Meds and New Rx's Prescriptions: No Action hydrocodone-acetaminophen 10-325 mg tablet 1 tab PO Q6H PRN cabergoline 0.5 mg tablet See Rx Instructions PO ONCE Patient Comments: one tab twice weekly PO ONCE; Rx Instructions: one tab PO twice weekly; atorvastatin [Lipitor] 20 mg tablet 20 mg PO DAILY dexlansoprazole [Dexilant] 60 mg capsule,biphase delayed releas 60 mg PO DAILY Vraylar 6 mg capsule 6 mg PO DAILY methocarbamol 500 mg tablet 500 mg PO BID PRN buspirone 15 mg tablet 15 mg PO BID duloxetine [Cymbalta] 60 mg capsule,delayed release(DR/EC) 60 mg PO DAILY furosemide [Lasix] 40 mg tablet 40 mg PO DAILY PRN amlodipine 5 mg tablet 10 mg PO DAILY furosemide [Lasix] 20 mg tablet 40 mg PO DAILY PRN Patient Comments: 12/27/14 not taking regularly, takes PRN. jw pregabalin 50 mg capsule 50 mg PO DAILY celecoxib 400 mg capsule 400 mg PO DAILY sulfamethoxazole-trimethoprim [Bactrim DS] 800-160 mg tablet 1 tab PO BID naloxone [Narcan] 4 mg/actuation [place],Non-Aerosol 4 mg INTRANASAL Q2-3M PRN lisinopril 10 mg tablet 10 mg PO DAILY mirtazapine 45 mg tablet 45 mg PO QHS Rx Instructions: take w/ 15mg for total 60mg qhs mirtazapine 15 mg tablet 15 mg PO QHS Rx Instructions: taking qhs w/ 45mg tab for 60mg total lansoprazole 30 mg capsule,delayed release(DR/EC) 30 mg PO AC Patient Comments: TAKE ONE CAPSULE BY MOUTH EVERY DAY BEFORE A MEAL FOR GERD trazodone 100 mg tablet 300 mg PO QHS Patient Comments: TAKE THREE TABLETS BY MOUTH EVERY EVENING AT BEDTIME oxycodone-acetaminophen 7.5-325 mg tablet 1 tab PO QID PRN Patient Comments: TAKE ONE TABLET BY MOUTH FOUR TIMES A DAY NEEDED FOR PAIN rosuvastatin 5 mg tablet 5 mg PO DAILY Patient Comments: TAKE ONE TABLET BY MOUTH EVERY DAY DIRECTED (DME) syringe with needle [BD Luer-Lana Syringe] 3 mL 23 x 1 syringe MISCELLANEOUS Patient Comments: USE ONCE WEEKLY FOR TESTOSTERONE INJECTION testosterone cypionate 200 mg/mL oil 100 mg IM .weekly Patient Comments: INJECT 0.5ML INTO THE MUSCLE ONCE WEEKLY Rexulti 3 mg tablet 3 mg PO QHS Patient Comments: TAKE ONE TABLET BY MOUTH AT BEDTIME aspirin 81 mg Tablet,Delayed Release (Dr/Ec) 81 mg PO DAILY methylphenidate HCl 20 mg tablet 20 mg PO TID Patient Comments: TAKE 1 TABLET BY MOUTH THREE TIMES DAILY loratadine [Claritin] 10 mg Tablet 10 mg PO DAILY levalbuterol tartrate [Xopenex HFA] 45 mcg/actuation HFA aerosol inhaler 2 puff INHALATION Q6H PRN PRN Patient Comments: INHALE TWO PUFFS BY MOUTH EVERY 6 HOURS NEEDED HPI General Mode of arrival: EMS. Date/Time Provider Initiated Documentation: 08/11/24 06:10. Limitations to Documentation: no limitations. Information obtained by: patient and RN notes reviewed. HPI Narrative: Patient is presenting to the ED with increasing shortness of breath over the last few days. He reports that typically at rest he does not feel short of breath. Exertion does cause shortness of breath, but now over the last couple of days he has been short of breath at rest and continues to feel worse. Denies having chest pain but describes chest tightness. Denies having any fevers but has been feeling cold with some chills. Denies nasal congestion, sore throat, cough. Breathing is worse if he is trying to lie down, feels better sitting up. Has had some diarrhea on and off for the last week but no abdominal pain or vomiting. Continues to make urine. Has been using his albuterol inhalers with no improvement. Received nebulizer treatment en route also with no improvement. Does still vape on and off but denies cigarette smoking at this time. Related Data Home Medications ?Medication ?Instructions ?Recorded ?Confirmed atorvastatin 20 mg tablet (Lipitor) 20 mg PO DAILY 08/18/18 08/11/24 cabergoline 0.5 mg tablet See Rx Instructions PO ONCE 08/18/18 08/11/24 hydrocodone 10 mg-acetaminophen 1 tab PO Q6H PRN 08/18/18 08/11/24 325 mg tablet Held on 08/11/24. Instructions: Changed by Provider aspirin 81 mg tablet,delayed 81 mg PO DAILY 10/08/18 08/11/24 release Held on 08/11/24. Instructions: Pt Stopped/Never Started levalbuterol tartrate 45 2 puff inhalation Q6H PRN PRN 12/27/19 08/11/24 mcg/actuation aerosol inhaler (Xopenex HFA) loratadine 10 mg tablet (Claritin) 10 mg PO DAILY 12/27/19 08/11/24 Held on 08/11/24. Instructions: Pt Stopped/Never Started methylphenidate HCl 20 mg tablet 20 mg PO TID 12/27/19 08/11/24 naloxone 4 mg/actuation nasal 4 mg intranasal Q2-3M PRN 12/03/20 08/11/24 spray (Narcan) buspirone 15 mg tablet 15 mg PO BID 09/18/21 08/11/24 cariprazine 6 mg capsule (Vraylar) 6 mg PO DAILY 09/18/21 08/11/24 dexlansoprazole 60 mg 60 mg PO DAILY 09/18/21 capsule,biphase delayed release (Dexilant) duloxetine 60 mg capsule,delayed 60 mg PO DAILY 09/18/21 08/11/24 release (Cymbalta) furosemide 40 mg tablet (Lasix) 40 mg PO DAILY PRN 09/18/21 08/11/24 Held on 08/11/24. Instructions: Pt Stopped/Never Started methocarbamol 500 mg tablet 500 mg PO BID PRN 09/18/21 08/11/24 Held on 08/11/24. Instructions: Pt Stopped/Never Started Lasix 20 mg tablet (furosemide) 40 mg PO DAILY PRN 12/12/21 08/11/24 Held on 08/11/24. Instructions: Pt Stopped/Never Started amlodipine 5 mg tablet 10 mg PO DAILY 12/12/21 08/11/24 celecoxib 400 mg capsule 400 mg PO DAILY 12/12/21 08/11/24 pregabalin 50 mg capsule 50 mg PO DAILY 12/12/21 08/11/24 sulfamethoxazole 800 1 tab PO BID 12/26/21 08/11/24 mg-trimethoprim 160 mg tablet (Bactrim DS) Held on 08/11/24. Instructions: Prescription Finished brexpiprazole 3 mg tablet (Rexulti) 3 mg PO QHS 08/11/24 08/11/24 lansoprazole 30 mg capsule,delayed 30 mg PO AC 08/11/24 08/11/24 release lisinopril 10 mg tablet 10 mg PO DAILY 08/11/24 08/11/24 mirtazapine 15 mg tablet 15 mg PO QHS 08/11/24 08/11/24 mirtazapine 45 mg tablet 45 mg PO QHS 08/11/24 08/11/24 oxycodone-acetaminophen 7.5 mg-325 1 tab PO QID PRN 08/11/24 08/11/24 mg tablet rosuvastatin 5 mg tablet 5 mg PO DAILY 08/11/24 08/11/24 syringe with needle 3 mL 23 x 1 08/11/24 08/11/24 (BD Luer-Lana Syringe) testosterone cypionate 200 mg/mL 100 mg IM .weekly 08/11/24 08/11/24 intramuscular oil trazodone 100 mg tablet 300 mg PO QHS 08/11/24 08/11/24 Allergies Allergy/AdvReac Type Severity Reaction Status Date / Time ibuprofen AdvReac Intermediate GI Bleeding Unverified 12/21/20 14:37 General KIMBERLEE: 3 Exam Narrative Exam Narrative: Const: Morbidly obese male in NAD. VS per triage. HEENT: NC/AT. Normal facial exam. Neck: Supple. Trachea midline. Lungs: Tachypneic but not in distress. I do not appreciate any wheezing. Seems to have decent air exchange. Maybe some rhonchi left base. Cor: RRR without murmur. GI: Soft/ND/NT. Neuro: A+O x 3. Normal speech, mentation. Cranial nerves II - XII grossly intact. No gross motor or sensory deficit. Ext: No C/C. 2-3+ pitting edema bilateral lower extremities. Medical Decision Making Patient presenting to ED by ambulance with increasing shortness of breath over the last 2 to 3 days. Patient is morbidly obese. He has had no improvement with inhaler or with nebulizer. I do not appreciate any wheezing and do hear relatively decent breath sounds. Pulmonary note from 2020 reports normal pulmonary function testing and thought that his weight and his elevated left hemidiaphragm was causing restrictive lung disease and did not feel that he was necessarily COPD. He is noted to have history of biventricular failure. He has significant edema of the lower extremities. He is markedly hypertensive although not convinced we are getting accurate blood pressure due to his size. His EKG is sinus rhythm with low voltage throughout, right axis, no acute ST findings and no significant change from previous. Differential must be broad but given lack of response to inhaler or neb, no appreciable wheezing, no definite COPD by function testing few years ago this is not likely COPD in nature. Consider infection. Consider CHF. No sudden onset of shortness of breath but still must consider PE. Unfortunately, this gentleman will not fit in our CT scan. Will obtain a D-dimer, BNP, troponins in addition to basic labs and VBG. Chest x-ray is ordered. He is on 2 L nasal cannula and maintaining at 92%. VBG is normal. Chemistries and liver function are normal. Initial troponin normal. D-dimer is 572, therefore, by YEARS algorithm PE is excluded. Portable chest x-ray per my read with suggestion of some pulmonary edema but given body habitus and morbid obesity difficult to define. BNP is still pending. Patient will be signed out to oncoming ED physician Dr. Lucio. Medical Records Medical records reviewed: Yes I reviewed the patient's medical records. Medical records narrative: Previous pulmonary visit from 2020 Lab Data Lab results reviewed: Yes I reviewed the patient's lab results. 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) Biventricular heart failure (Chronic) Elevated hemidiaphragm (Acute) Obesity hypoventilation syndrome (Acute) Acute on chronic respiratory acidosis (Acute) Migraine (Acute 05/09/13) Depression (Chronic) Gastroesophageal reflux disease (Chronic) Insomnia (Chronic) Sleep apnea (Chronic) Smoker (Chronic) Blind left eye (Chronic) Narcolepsy (Chronic) Medical History Restrictive lung disease Hypertension Morbid obesity COPD (chronic obstructive pulmonary disease) Bipolar disorder Hypogonadism in male Diabetes Neuropathy Extrapyramidal movement disorder CAD (coronary artery disease) HLD (hyperlipidemia) CHF (congestive heart failure) Chronic low back pain Organic impotence Hyperprolactinemia Social History Smoking/Tobacco Use Status: Current every day Tobacco Type: e-cigarettes Smoking risk assessment performed?: Yes Alcohol Intake: current Alcohol Intake frequency: holidays/special occasions only Alcohol type: hard liquor Drug use: Never Details: About once a month, used last a couple weeks ago Housing: other Do you feel safe at home: Yes Do you feel safe in your relationship?: Yes Additional Social history: lives at [facility]
--- NOTE | 2024-08-11 06:00 | RT.EKG_ITS ---
APPROVED REPORT Exam: Resting ECG Reason for Exam: SOB Patient Location: E HR:72 bpm ECG Measurements Heart Rate 72 AXIS OR 169 P 36 QRSd 99 QRS 111 QT 412 T 45 QTc 451 Conclusion Sinus rhythm...normal P axis, V-rate 60- 99 Right axis deviation...QRS axis (100,269) Low voltage, extremity and precordial leads...extremity<0.5mV, precordial<1.0mV Consider anterior infarct...Q >30mS in V2-V5 There are no significant changes compared to prior EKG performed on 12/03/2020 at 15:22.
[2024-08-11 06:34] LABS: BE (Venous) 3 mmol/L (-2-3); HCO3 (Venous) 28 mmol/L (23-28); O2 Sat (Venous) 67 %; TCO2 (Venous) 26 mmol/L (24-29); pCO2 (Venous) 47 mmHg (41-51); pH (Venous) 7.38 (7.31-7.41); pO2 (Venous) 36 mmHg
[2024-08-11 06:42] LABS: Abs Immature Grans 0.18 10^3/uL (0.0-0.06); Absolute Basophil Count 0.04 10^3/uL (0.0-0.2); Absolute Eosinophil Count 0.09 10^3/uL (0.0-0.7); Absolute Neutrophil Count 6.24 10^3/uL (1.2-6.7); Basophils % 0.5 %; Eosinophils % 1.1 %; HCT 39.1 % (40.0-50.0); HGB 12.2 g/dL (13.5-17.5); Immature Grans % 2.3 %; Lymphocytes % 11.3 %; MCH 26.5 pg (27.0-33.0); MCHC 31.2 % (32.0-36.0); MCV 85 fL (80-95); MPV 9.9 fL (8.0-11.0); Monocytes % 6.3 %; Neutrophils % 78.5 %; RBC 4.61 10^6/uL (4.36-5.78); RDW 16.2 % (11.8-14.1); RDW-SD 49.9 fL; WBC 7.95 10^3/uL (4.4-10.8)
--- NOTE | 2024-08-11 07:00 | DI.RAD_ITS ---
Exam(s) XR PORTABLE CHEST AP EXAM: XR PORTABLE CHEST AP CLINICAL HISTORY: SOB TECHNIQUE: 2D digital imaging was performed of the chest. One image was obtained. An AP view was obtained. COMPARISON: CR XR PORTABLE CHEST AP from 12/03/2020 FINDINGS: Study limited by patient body habitus. The left lung base is poorly visualized. MEDIASTINUM: Normal. HEART: Normal. PULMONARY VASCULATURE: Normal. LUNGS: The left lung base is poorly visualized. A basilar infiltrate cannot be excluded. The lungs are otherwise clear. PLEURAL SPACE: No pleural effusion or pneumothorax. BONE:Within normal limits for the patient's age. OTHER FINDINGS:Normal. IMPRESSION: 1. Exam is limited by patient body habitus. 2. The retrocardiac region in the left lung base is poorly imaged and a left basilar infiltrate cannot be excluded. 3. The lungs are otherwise clear. 4. The preliminary [facility] report was reviewed. DATA REPOSITORY: RADIATION DOSE DELIVERED:
[2024-08-11 07:09] LABS: ALT 44 U/L (16-63); AST 26 U/L (15-37); Albumin 3.6 g/dL (3.4-5.0); Alkaline Phosphatase 89 U/L (46-116); Anion Gap 6.7 mmol/L (3-11); BUN 10 mg/dL (7-18); Bilirubin, Total 1.1 mg/dL (0.2-1.0); CO2 28.3 mmol/L (21.0-32.0); CREATININE 0.9 mg/dL (0.70-1.30); Calcium 8.6 mg/dL (8.5-10.1); Chloride 105 mmol/L (98-107); Estimated GFR 101.49 (mL/min/1.73m2); Glucose 128 mg/dL (74-106); Magnesium 1.8 mg/dL (1.8-2.4); Potassium 4.1 mmol/L (3.5-5.1); Sodium 140 mmol/L (136-145); Total Protein 7.4 g/dL (6.4-8.2); Troponin I 9 ng/L (<or=76)
[2024-08-11 07:12] LABS: Lab Add On Test DONE
[2024-08-11 07:17] LABS: D-Dimer 572 ng/mlFEU (<500)
[2024-08-11 07:35] LABS: Platelet Count 734 10^3/uL (130-400)
[2024-08-11 07:48] LABS: COVID-19 PCR Negative (Negative); Influenza A PCR Negative (Negative); Influenza B PCR Negative (Negative); RSV PCR Negative (Negative); Source Nasopharynx
[2024-08-11 08:10] LABS: Troponin I 8 ng/L (<or=76)
[2024-08-11 08:21] LABS: Bilirubin Negative (Negative); Blood Negative (Negative); Clarity Clear (Clear); Glucose Negative (Negative); Ketones Negative (Negative); Leukocyte Esterase Negative (Negative); Nitrite Negative (Negative); Specific Gravity 1.015 (1.005-1.025); Urobilinogen 0.2 mg/dL (Up to 0.2)
[2024-08-11] MEDS: Furosemide 40 MG/4 ML VIAL IVP ×2 (08:21→15:20)
[2024-08-11 08:39] LABS: NT-proBNP 305 pg/mL (<300)
--- NOTE | 2024-08-11 08:48 | ED.PROG_ITS ---
Date of service: 08/11/24 Time of Service: 08:49 Medical Decision Making Patient was signed out to me pending laboratory workup and reassessment. Patient has a history of shortness of breath chronically, as well as restrictive lung disease and congestive heart failure. Restrictive lung disease is more so secondary to body habitus per Dr. Sahu in review of previous pulmonary evaluation by Dr. Cullen. Laboratory workup returned, D-dimer was only 572, and per the years algorithm PE is excluded with years protocol. Additionally the patient's Wells criteria puts him in the low risk group for PE as well. I do not see an indication for CT angiogram at this time. proBNP was elevated slightly at 305, however this is notably elevated for him as he normally resides in the double-digit category. Serial troponins are normal/stable. Chest x-ray definitely shows some dampening and so conservation and does not give a clear picture of symptomatology. Read is read as unremarkable by radiology otherwise. 40 mg of Lasix was administered, patient is urinating well, baseline oxygen at this time remains between 90 and 91% at rest, however when he does get up and ambulate he drops down to 83%. Clinically I am concerned that the patient's signs and symptoms appear clinically consistent with a congestive heart failure exacerbation and mild fluid overload. Will continue to diurese. Because of the hypoxemia I do feel he would be a good candidate for admission for continued diuresis. Discussed the case with the hospitalist Dr. Lackey, he agrees with the assessment and plan. I have extensively reviewed the treatment plan with the patient. I have addressed all patient concerns at this time. I have also discussed the plan with the admitting physician and they agree with the current assessment and plan and have agreed to assume responsibility for the patient. All parties demonstrate verbal understanding and agreement with our assessment and plan at this time. The documentation in this chart was dictated using [employer] dictation software. Please excuse any dictation errors. Quality:SDOH Health Related Social Needs: Health related social needs transpo insecurity Health related social needs details Pt reports he has some issues getting to and from appts Critical Care Time Critical Care Time Critical Care Time: Yes Total Critical Care Time: 45 Attestation: Upon my evaluation, this patient had a high probability of imminent or life- threatening deterioration, which required my direct attention, intervention, and personal management. I have personally provided 45 minutes of critical care time exclusive of time spent on separately billable procedures. Time includes review of laboratory data, radiology results, discussion with consultants, and monitoring for potential decompensation. Interventions were performed as documented. Discharge Plan Disposition Patient Disposition: Admit to [facility] Condition: Stable Discharge Details Clinical Impression: Hypoxemia, Acute exacerbation of CHF (congestive heart failure) Primary Care Provider: Татьяна Koehler ED Provider: Payam Lucio Home Meds and New Rx's Prescriptions: No Action hydrocodone-acetaminophen 10-325 mg tablet 1 tab PO Q6H PRN cabergoline 0.5 mg tablet See Rx Instructions PO ONCE Patient Comments: one tab twice weekly PO ONCE; Rx Instructions: one tab PO twice weekly; atorvastatin [Lipitor] 20 mg tablet 20 mg PO DAILY dexlansoprazole [Dexilant] 60 mg capsule,biphase delayed releas 60 mg PO DAILY Vraylar 6 mg capsule 6 mg PO DAILY methocarbamol 500 mg tablet 500 mg PO BID PRN buspirone 15 mg tablet 15 mg PO BID duloxetine [Cymbalta] 60 mg capsule,delayed release(DR/EC) 60 mg PO DAILY furosemide [Lasix] 40 mg tablet 40 mg PO DAILY PRN amlodipine 5 mg tablet 10 mg PO DAILY furosemide [Lasix] 20 mg tablet 40 mg PO DAILY PRN Patient Comments: 12/27/14 not taking regularly, takes PRN. jw pregabalin 50 mg capsule 50 mg PO DAILY celecoxib 400 mg capsule 400 mg PO DAILY sulfamethoxazole-trimethoprim [Bactrim DS] 800-160 mg tablet 1 tab PO BID naloxone [Narcan] 4 mg/actuation [place],Non-Aerosol 4 mg INTRANASAL Q2-3M PRN lisinopril 10 mg tablet 10 mg PO DAILY mirtazapine 45 mg tablet 45 mg PO QHS Rx Instructions: take w/ 15mg for total 60mg qhs mirtazapine 15 mg tablet 15 mg PO QHS Rx Instructions: taking qhs w/ 45mg tab for 60mg total lansoprazole 30 mg capsule,delayed release(DR/EC) 30 mg PO AC Patient Comments: TAKE ONE CAPSULE BY MOUTH EVERY DAY BEFORE A MEAL FOR GERD trazodone 100 mg tablet 300 mg PO QHS Patient Comments: TAKE THREE TABLETS BY MOUTH EVERY EVENING AT BEDTIME oxycodone-acetaminophen 7.5-325 mg tablet 1 tab PO QID PRN Patient Comments: TAKE ONE TABLET BY MOUTH FOUR TIMES A DAY NEEDED FOR PAIN rosuvastatin 5 mg tablet 5 mg PO DAILY Patient Comments: TAKE ONE TABLET BY MOUTH EVERY DAY DIRECTED (DME) syringe with needle [BD Luer-Lana Syringe] 3 mL 23 x 1 syringe MISCELLANEOUS Patient Comments: USE ONCE WEEKLY FOR TESTOSTERONE INJECTION testosterone cypionate 200 mg/mL oil 100 mg IM .weekly Patient Comments: INJECT 0.5ML INTO THE MUSCLE ONCE WEEKLY Rexulti 3 mg tablet 3 mg PO QHS Patient Comments: TAKE ONE TABLET BY MOUTH AT BEDTIME aspirin 81 mg Tablet,Delayed Release (Dr/Ec) 81 mg PO DAILY methylphenidate HCl 20 mg tablet 20 mg PO TID Patient Comments: TAKE 1 TABLET BY MOUTH THREE TIMES DAILY loratadine [Claritin] 10 mg Tablet 10 mg PO DAILY levalbuterol tartrate [Xopenex HFA] 45 mcg/actuation HFA aerosol inhaler 2 puff INHALATION Q6H PRN PRN Patient Comments: INHALE TWO PUFFS BY MOUTH EVERY 6 HOURS NEEDED
--- NOTE | 2024-08-11 10:58 | W.PM.HP.N ---
Date of service: 08/11/24 Time of Service: 10:58 Assessment and Plan Assessment and plan (1) Acute exacerbation of CHF (congestive heart failure): Status: Acute Assessment and plan: Last echo with LVEF 40-45% Echocardiogram IV lasix 40 BID Labs in AM (2) Acute hypoxic respiratory failure: Status: Acute Assessment and plan: non-oxygen dependent at home Was on 2l/min inthe ED in the setting of point 1 most likely not pneumonia as per point 3 and not PE as per HPI (3) Infiltrate of left lung present on chest x-ray: Status: Acute Assessment and plan: As per CXR- not able to fit in CT Procalcitonin added to labs and pending No antibiotics at this time - w/o leukocytosis fever despite new O2 requirement (4) Hypertension: Assessment and plan: Cont amlodipine and adjust PRN Monitor (5) Depression: Status: Chronic Assessment and plan: Continue home meds (6) Sleep apnea: Status: Chronic Assessment and plan: BiPAP while asleep. Considerable weight loss would be desirable. 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 (8) COPD (chronic obstructive pulmonary disease): Assessment and plan: Cont home meds PRN nebs (9) Narcolepsy: Status: Chronic Assessment and plan: Continue home methylphenidate 20mg TID (10) Gastroesophageal reflux disease: Status: Chronic Assessment and plan: PPI (11) Obesity hypoventilation syndrome: Status: Acute Assessment and plan: BiPAP while asleep Seen by pulmonology in 2020- read note weigt management would be indicated as per point 11. (12) Morbid obesity: Assessment and plan: GLP- inhibitor introduced as an option to patient- discussion to continue with PCP (13) Restrictive lung disease: Assessment and plan: As per pulmonology BIPAP as per home setting (14) On deep vein thrombosis (DVT) prophylaxis: Status: Acute Assessment and plan: ON LMWH Discussed with Dr. Lackey History of Present Illness History of Present Illness Chief Complaint: shortness of breath Narrative: This 53 years old male patient with a PMHx of obesity induced hypoventilation syndrome, restrictive lung disease, elevated left hemidiaphragm, biventricular failure, HTN, CHF presented to the ED with c/o increasing shortness of breath over the last few days with SOB now at rest. The patient denied chest pain but described chest tightness,LEs swelling, orthopnea; denied fevers but reported some chills and intermittent diarrhea; denied nasal congestion, sore throat, cough,abd pain, vomiting, dysuria. Breathing is worse if he is trying to lie down, feels better sitting up. Received nebulizer treatment en route also with w/o improvement. reported onging vape use but denied currently smoking. Workup in the ED was positive for pulmonary edema VS left basilar infiltrate as per CXR, BNP of 305 and negative leukocytosis or electrolyte imbalance for PE as per age adjusted d-dimer of 572. The patient had a new oxygen requirement of 2l/min in the ED; on room air at home. The hospitalist team admitted the patient to the medical surgical floor for acute hypoxic respiratory failure d/t CHF exacerbation. 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) Biventricular heart failure (Chronic) Elevated hemidiaphragm (Acute) Obesity hypoventilation syndrome (Acute) Acute on chronic respiratory acidosis (Acute) Migraine (Acute 05/09/13) Depression (Chronic) Gastroesophageal reflux disease (Chronic) Insomnia (Chronic) Sleep apnea (Chronic) Smoker (Chronic) Blind left eye (Chronic) Narcolepsy (Chronic) Medical History Restrictive lung disease Hypertension Morbid obesity COPD (chronic obstructive pulmonary disease) Bipolar disorder Hypogonadism in male Diabetes Neuropathy Extrapyramidal movement disorder CAD (coronary artery disease) HLD (hyperlipidemia) CHF (congestive heart failure) Chronic low back pain Organic impotence Hyperprolactinemia Social History Smoking/Tobacco Use Status: Current every day Tobacco Type: e-cigarettes Smoking risk assessment performed?: Yes Alcohol Intake: current Alcohol Intake frequency: holidays/special occasions only Alcohol type: hard liquor Drug use: Never Details: About once a month, used last a couple weeks ago Housing: other Do you feel safe at home: Yes Do you feel safe in your relationship?: Yes Additional Social history: lives at [facility] Allergies and Home Medications Allergies Allergy/AdvReac Type Severity Reaction Status Date / Time ibuprofen AdvReac Intermediate GI Bleeding Unverified 12/21/20 14:37 Home Medications ?Medication ?Instructions ?Recorded ?Confirmed ?Type atorvastatin 20 mg tablet (Lipitor) 20 mg PO DAILY 08/18/18 08/11/24 History cabergoline 0.5 mg tablet See Rx Instructions PO ONCE 08/18/18 08/11/24 History hydrocodone 10 mg-acetaminophen 1 tab PO Q6H PRN 08/18/18 08/11/24 History 325 mg tablet Held on 08/11/24. Instructions: Changed by Provider aspirin 81 mg tablet,delayed 81 mg PO DAILY 10/08/18 08/11/24 History release Held on 08/11/24. Instructions: Pt Stopped/Never Started levalbuterol tartrate 45 2 puff inhalation Q6H PRN PRN 12/27/19 08/11/24 History mcg/actuation aerosol inhaler (Xopenex HFA) loratadine 10 mg tablet (Claritin) 10 mg PO DAILY 12/27/19 08/11/24 History Held on 08/11/24. Instructions: Pt Stopped/Never Started methylphenidate HCl 20 mg tablet 20 mg PO TID 12/27/19 08/11/24 History naloxone 4 mg/actuation nasal 4 mg intranasal Q2-3M PRN 12/03/20 08/11/24 History spray (Narcan) buspirone 15 mg tablet 15 mg PO BID 09/18/21 08/11/24 History cariprazine 6 mg capsule (Vraylar) 6 mg PO DAILY 09/18/21 08/11/24 History duloxetine 60 mg capsule,delayed 60 mg PO DAILY 09/18/21 08/11/24 History release (Cymbalta) furosemide 40 mg tablet (Lasix) 40 mg PO DAILY PRN 09/18/21 08/11/24 History Held on 08/11/24. Instructions: Pt Stopped/Never Started methocarbamol 500 mg tablet 500 mg PO BID PRN 09/18/21 08/11/24 History Held on 08/11/24. Instructions: Pt Stopped/Never Started Lasix 20 mg tablet (furosemide) 40 mg PO DAILY PRN 12/12/21 08/11/24 History Held on 08/11/24. Instructions: Pt Stopped/Never Started celecoxib 400 mg capsule 400 mg PO DAILY 12/12/21 08/11/24 History sulfamethoxazole 800 1 tab PO BID 12/26/21 08/11/24 History mg-trimethoprim 160 mg tablet (Bactrim DS) Held on 08/11/24. Instructions: Prescription Finished amlodipine 10 mg tablet 10 mg PO DAILY 08/11/24 08/11/24 History brexpiprazole 3 mg tablet (Rexulti) 3 mg PO QHS 08/11/24 08/11/24 History lansoprazole 30 mg capsule,delayed 30 mg PO AC 08/11/24 08/11/24 History release lisinopril 10 mg tablet 10 mg PO DAILY 08/11/24 08/11/24 History mirtazapine 15 mg tablet 15 mg PO QHS 08/11/24 08/11/24 History mirtazapine 45 mg tablet 45 mg PO QHS 08/11/24 08/11/24 History oxycodone-acetaminophen 7.5 mg-325 1 tab PO QID PRN 08/11/24 08/11/24 History mg tablet rosuvastatin 5 mg tablet 5 mg PO DAILY 08/11/24 08/11/24 History syringe with needle 3 mL 23 x 1 08/11/24 08/11/24 History (BD Luer-Lana Syringe) testosterone cypionate 200 mg/mL 100 mg IM .weekly 08/11/24 08/11/24 History intramuscular oil trazodone 100 mg tablet 300 mg PO QHS 08/11/24 08/11/24 History Exam Narrative Exam Narrative: Constitutional morbidly obese appearing patient , standing in a tripod position , SOB with movement ,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 No neurological focal deficit Resp: shallow respiratory pattern, speaks in short sentences, labored breathing, decreased bases bilaterally Cardio: regular rhythm, S1, S2, no murmur, capillary refill<3 sec., bilateral radial and dorsalis pedis pulses are positive, palpable GI: Abdomen is not distended, soft and non tender, bowel sounds are present : Negative Costovertebral angle tenderness, Extremities: strength 5/5 to bilateral lower and upper extremities Psych: RASS 0, congruent mood and normal affect. Results Labs 08/11/24 06:26 08/11/24 06:26 Labs: Laboratory Results - last 24 hr 08/11/24 08/11/24 08/11/24 06:26 06:50 07:26 WBC 7.95 RBC 4.61 Hgb 12.2 L Hct 39.1 L MCV 85 MCH 26.5 L MCHC 31.2 L RDW 16.2 H Plt Count 734 H MPV 9.9 Immature Gran % 2.3 Neutrophils % 78.5 Lymphocytes % 11.3 Monocytes % 6.3 Eosinophils % 1.1 Basophils % 0.5 Nucleated RBC % 0.0 Absolute Neutrophils 6.24 Absolute Lymphocytes 0.90 L Absolute Monocytes 0.50 Absolute Eosinophils 0.09 Absolute Basophils 0.04 D-Dimer 572 H VBG pH 7.38 VBG pCO2 47 VBG pO2 36 VBG HCO3 28 VBG Total CO2 26 VBG O2 Saturation 67 VBG Base Excess 3 Sodium 140 Potassium 4.1 Chloride 105 Carbon Dioxide 28.3 Anion Gap 6.7 BUN 10 Creatinine 0.9 Est GFR (CKD-EPI 2020) 101.49 Glucose 128 H Calcium 8.6 Magnesium 1.8 Total Bilirubin 1.1 H AST 26 ALT 44 Alkaline Phosphatase 89 Troponin I 9 8 NT-Pro-B Natriuret Pep 305 H Total Protein 7.4 Albumin 3.6 Urine Color Urine Clarity Urine pH Ur Specific [place] Urine Protein Urine Ketones Urine Blood Urine Nitrite Urine Bilirubin Urine Urobilinogen Ur Leukocyte Esterase Urine Glucose COVID-19 Source Nasopharynx SARS-CoV-2 (PCR) Negative Influenza Type A (PCR) Negative Influenza Type B (PCR) Negative RSV (PCR) Negative Add-On Test Request DONE 08/11/24 07:45 WBC RBC Hgb Hct MCV MCH MCHC RDW Plt Count MPV Immature Gran % Neutrophils % Lymphocytes % Monocytes % Eosinophils % Basophils % Nucleated RBC % Absolute Neutrophils Absolute Lymphocytes Absolute Monocytes Absolute Eosinophils Absolute Basophils D-Dimer VBG pH VBG pCO2 VBG pO2 VBG HCO3 VBG Total CO2 VBG O2 Saturation VBG Base Excess Sodium Potassium Chloride Carbon Dioxide Anion Gap BUN Creatinine Est GFR (CKD-EPI 2020) Glucose Calcium Magnesium Total Bilirubin AST ALT Alkaline Phosphatase Troponin I NT-Pro-B Natriuret Pep Total Protein Albumin Urine Color Yellow Urine Clarity Clear Urine pH 6.0 Ur Specific [place] 1.015 Urine Protein Negative Urine Ketones Negative Urine Blood Negative Urine Nitrite Negative Urine Bilirubin Negative Urine Urobilinogen 0.2 Ur Leukocyte Esterase Negative Urine Glucose Negative COVID-19 Source SARS-CoV-2 (PCR) Influenza Type A (PCR) Influenza Type B (PCR) RSV (PCR) Add-On Test Request Last Vital Signs Temp 35.7 C L 08/11/24 06:10 Pulse 69 08/11/24 08:50 Resp 24 08/11/24 08:00 BP 173/82 H 08/11/24 08:17 Pulse Ox 94 08/11/24 08:50 Time Spent Time spent with Patient: >75 minutes Time was spent: preparing to see the patient(eg.review tests), obtaining and/or reviewing separately otained hiistory, ordering medications,tests, procedures, referring, communicating with other health care clinician, indepentently interpreting results, counseling the patient and care coordination
--- NOTE | 2024-08-11 12:15 | DI.US_ITS ---
APPROVED REPORT EXAM: Comprehensive 2D, Doppler, and color-flow Echocardiogram Patient Location: In-Patient Room/Bed: 214 X Ray Service Technician: Jocelin Patel RDCS (AE) Indications: CHF, HFmEF to HFrEF, Smoker Other Information Study Quality: Poor. Technically limited study due to body habitus, scan done bedside supine and sitting.. Conclusion Technically difficult and very limited study Left ventricle appears grossly normal in size, wall thickness and overall systolic function. Right ventricle appears normal in size Left atrium is mildly dilated. Right atrium is not well-visualized Within the limits of the study no significant valvular disease is identified Borderline dilated aortic root Wall motion Left Ventricle Technically limited parasternal images. The overall left ventricular systolic function appears normal. Technically limited due to body habitus. Regional wall motion is not well visualized but grossly normal. Right Ventricle Right ventricle is grossly normal in size. Right ventricular systolic function could not be assessed. Atria Left atrium is mildly dilated. Right atrium is not well visualized. Aortic Valve Aortic valve is grossly normal in structure.normal in structure. There is no aortic valvular stenosis. No aortic regurgitation is present. Mitral Valve The mitral valve is grossly normal in structure. No evidence of mitral valve stenosis. Trace mitral regurgitation. Tricuspid Valve The tricuspid valve is normal in structure. There is no tricuspid valve stenosis. Trace tricuspid regurgitation. Pulmonic Valve The pulmonary valve is normal in structure. There is no pulmonic valvular stenosis. There is no pulmonic valvular regurgitation. Great Vessels Aortic root is mildly dilated. The ascending aorta is normal in size. The IVC was not visualized. Technically limited subcostal imaging. Pericardium Technically limited subcostal imaging, body habitus. 2D Dimensions Ao Root d 3.95 cm M: 3.1 - 3.7 Ao Asc Diam d 3.49 cm M: 2.6 - 3.4 M-Mode TAPSE 2.97 cm (M/F) >1.7 LA Volume LA Length A4C 6.0 cm LA Length A2C 6.8 cm LA Area A4C s 19.51 cm2 LA Area A2C s 24.03 cm2 LA Vol A4C A-L 53.62 mL LA Vol A2C A-L 72.05 mL LA Vol Biplane A-L 66.0 mL LA Vol/BSA A4C A-L LA Vol/BSA A2C A-L LA Vol/BSA BP A-L 43.4 mL/m2 LA Vol A4C MOD 49.5 mL LA Vol A2C MOD 70.1 mL LA Vol BP MOD 61.8 mL LV Diastology MV E' medial 0.113 (>0.07 m/s) MV E Vmax 1.04 (0.4-1.3 m/s) MV E/E' MED 9.16 (<14) MV A Vmax 0.85 (0.4-1.3 m/s) MV E' lateral 0.144 (>0.1 m/s) E/A Ratio 1.2 MV E/E' LAT 7.22 (<14) MV E' Average 0.129 m/s MV E/E'(average) 8.08 Aortic Valve AoV Vmax 1.75 m/s LVOT Vmax 1.20 m/s AoV Peak Grad 12.2 mmHg LVOT Peak Grad 5.8 mmHg AoV Area (Vmax) 2.97 cm2 LVOT VTI 0.240 m AoV VTI 0.306 m LVOT Mean Grad 3.5 mmHg AoV Mean [place]. 1.16 m/s LVOT SV 103.36 mL AoV Mean Grad 6.3 mmHg LVOT Diam s 2.30 cm AoV Area (VTI) 3.38 cm2 AV Regurg Peak Gr. 12.19 mmHg Velocity Ratio 0.69 Mitral Valve MV DT 245 (160-240 msec) MV Vmax TIPS 0.92 m/s MV Mean Grad 1.8 (<2mmHg) MV VTI 0.333 m Pulmonary Valve PV Vmax 0.90 (0.5-1.5 m/s) RVOT Vmax 0.65 m/s PV Peak Grad 3.3 mmHg RVOT Peak Gr. 1.7 mmHg PV Mean [place] 0.67 m/s RVOT VTI 0.175 m PV Mean Grad 2.0 mmHg RVOT Mean Gr. 1.0 mmHg Tricuspid Valve TV S' 0.20 m/s
--- NOTE | 2024-08-11 12:41 | W.PC.ACHO ---
Registration Status: ADM IN Primary Language: Preferred Language: [place] ED Information & Data Chief Complaint RespSymp 08/11/24 06:10 Chief Complaint RespSymp 08/11/24 06:06 Triage Note BIIBEMS for x3 days 08/11/24 06:06 increasing SOB. Normally LEVY , but now feels like he can' t catch his breath even at rest. COPD hx, taking inhaler at home w/o improvement. Some diarrhea and 'feel cold all the time' . Per pt normal SpO2 for him is 'around 90%'. No home O2 . EMS reports RA SpO2 ~88% on their initially assessment. Neb treatment given enroute Medical / Surgical History (Last Reviewed 08/11/24 @ 05:57 by Harshal Sahu MD) Restrictive lung disease Hypertension Morbid obesity COPD (chronic obstructive pulmonary disease) Bipolar disorder Hypogonadism in male Diabetes Neuropathy Extrapyramidal movement disorder CAD (coronary artery disease) HLD (hyperlipidemia) CHF (congestive heart failure) Chronic low back pain Organic impotence Hyperprolactinemia Most Recent Vital Signs Temperature 36.6 C 08/11/24 12:07 Temperature Source Temporal Artery Scan 08/11/24 12:07 Pulse 71 08/11/24 12:07 Pulse 73 08/11/24 08:00 Respiratory Rate 16 08/11/24 12:07 Respiratory Effort Labored, Grunting 08/11/24 06:10 Respiratory Depth Shallow 08/11/24 06:10 Blood Pressure 162/87 H 08/11/24 12:07 Blood Pressure Mean 112 08/11/24 12:07 Blood Pressure Position Sitting 08/11/24 06:10 Pulse Oximetry 92 08/11/24 12:07 Respiratory End-tidal CO2 33 08/11/24 09:50 Oxygen Delivery Method Nasal Cannula 08/11/24 12:07 Oxygen Flow Rate 2 08/11/24 12:07 Pain Level 7 08/11/24 12:07 Allergies ibuprofen Adverse Reaction (Intermediate, Unverified 12/21/20 14:37) GI Bleeding Precautions Isolation Standard precaution 08/11/24 06:10 IV IV Catheter Type [Right Saline Lock Forearm] IV Catheter Gauge [Right 18 Forearm] Diet Orders Category Date Time Status Heart Healthy Eating [DIET] Nutrition 08/11/24 Lunch Active Diagnostics 08/11/24 08/11/24 08/11/24 Range/Units 07:45 07:26 06:50 WBC (4.4-10.8) 10^3/uL RBC (4.36-5.78) 10^6/uL Hgb (13.5-17.5) g/dL Hct (40.0-50.0) % MCV (80-95) fL MCH (27.0-33.0) pg MCHC (32.0-36.0) % RDW (11.8-14.1) % Plt Count (130-400) 10^3/uL MPV (8.0-11.0) fL Immature Gran % % Neutrophils % % Lymphocytes % % Monocytes % % Eosinophils % % Basophils % % Nucleated RBC % (0.0-0.3) % Absolute Neutrophils (1.2-6.7) 10^3/uL Absolute Lymphocytes (1.2-3.4) 10^3/uL Absolute Monocytes (0.1-0.8) 10^3/uL Absolute Eosinophils (0.0-0.7) 10^3/uL Absolute Basophils (0.0-0.2) 10^3/uL D-Dimer (<500) ng/mlFEU VBG pH (7.31-7.41) VBG pCO2 (41-51) mmHg VBG pO2 mmHg VBG HCO3 (23-28) mmol/L VBG Total CO2 (24-29) mmol/L VBG O2 Saturation % VBG Base Excess (-2-3) mmol/L Sodium (136-145) mmol/L Potassium (3.5-5.1) mmol/L Chloride (98-107) mmol/L Carbon Dioxide (21.0-32.0) mmol/L Anion Gap (3-11) mmol/L BUN (7-18) mg/dL Creatinine (0.70-1.30) mg/dL Est GFR (CKD-EPI 2020) (mL/min/1.73m2) Glucose (74-106) mg/dL Calcium (8.5-10.1) mg/dL Magnesium (1.8-2.4) mg/dL Total Bilirubin (0.2-1.0) mg/dL AST (15-37) U/L ALT (16-63) U/L Alkaline Phosphatase (46-116) U/L Troponin I 8 (<or=76) ng/L NT-Pro-B Natriuret Pep (<300) pg/mL Total Protein (6.4-8.2) g/dL Albumin (3.4-5.0) g/dL Urine Color Yellow (Yellow) Urine Clarity Clear (Clear) Urine pH 6.0 (5-8) Ur Specific [place] 1.015 (1.005-1.025) Urine Protein Negative (Neg-Trace) mg/dL Urine Ketones Negative (Negative) mg/dL Urine Blood Negative (Negative) Urine Nitrite Negative (Negative) Urine Bilirubin Negative (Negative) Urine Urobilinogen 0.2 (Up to 0.2) mg/dL Ur Leukocyte Esterase Negative (Negative) Urine Glucose Negative (Negative) mg/dL COVID-19 Source SARS-CoV-2 (PCR) (Negative) Influenza Type A (PCR) (Negative) Influenza Type B (PCR) (Negative) RSV (PCR) (Negative) Add-On Test Request DONE 08/11/24 Range/Units 06:26 WBC 7.95 (4.4-10.8) 10^3/uL RBC 4.61 (4.36-5.78) 10^6/uL Hgb 12.2 L (13.5-17.5) g/dL Hct 39.1 L (40.0-50.0) % MCV 85 (80-95) fL MCH 26.5 L (27.0-33.0) pg MCHC 31.2 L (32.0-36.0) % RDW 16.2 H (11.8-14.1) % Plt Count 734 H (130-400) 10^3/uL MPV 9.9 (8.0-11.0) fL Immature Gran % 2.3 % Neutrophils % 78.5 % Lymphocytes % 11.3 % Monocytes % 6.3 % Eosinophils % 1.1 % Basophils % 0.5 % Nucleated RBC % 0.0 (0.0-0.3) % Absolute Neutrophils 6.24 (1.2-6.7) 10^3/uL Absolute Lymphocytes 0.90 L (1.2-3.4) 10^3/uL Absolute Monocytes 0.50 (0.1-0.8) 10^3/uL Absolute Eosinophils 0.09 (0.0-0.7) 10^3/uL Absolute Basophils 0.04 (0.0-0.2) 10^3/uL D-Dimer 572 H (<500) ng/mlFEU VBG pH 7.38 (7.31-7.41) VBG pCO2 47 (41-51) mmHg VBG pO2 36 mmHg VBG HCO3 28 (23-28) mmol/L VBG Total CO2 26 (24-29) mmol/L VBG O2 Saturation 67 % VBG Base Excess 3 (-2-3) mmol/L Sodium 140 (136-145) mmol/L Potassium 4.1 (3.5-5.1) mmol/L Chloride 105 (98-107) mmol/L Carbon Dioxide 28.3 (21.0-32.0) mmol/L Anion Gap 6.7 (3-11) mmol/L BUN 10 (7-18) mg/dL Creatinine 0.9 (0.70-1.30) mg/dL Est GFR (CKD-EPI 2020) 101.49 (mL/min/1.73m2) Glucose 128 H (74-106) mg/dL Calcium 8.6 (8.5-10.1) mg/dL Magnesium 1.8 (1.8-2.4) mg/dL Total Bilirubin 1.1 H (0.2-1.0) mg/dL AST 26 (15-37) U/L ALT 44 (16-63) U/L Alkaline Phosphatase 89 (46-116) U/L Troponin I 9 (<or=76) ng/L NT-Pro-B Natriuret Pep 305 H (<300) pg/mL Total Protein 7.4 (6.4-8.2) g/dL Albumin 3.6 (3.4-5.0) g/dL Urine Color (Yellow) Urine Clarity (Clear) Urine pH (5-8) Ur Specific [place] (1.005-1.025) Urine Protein (Neg-Trace) mg/dL Urine Ketones (Negative) mg/dL Urine Blood (Negative) Urine Nitrite (Negative) Urine Bilirubin (Negative) Urine Urobilinogen (Up to 0.2) mg/dL Ur Leukocyte Esterase (Negative) Urine Glucose (Negative) mg/dL COVID-19 Source Nasopharynx SARS-CoV-2 (PCR) Negative (Negative) Influenza Type A (PCR) Negative (Negative) Influenza Type B (PCR) Negative (Negative) RSV (PCR) Negative (Negative) Add-On Test Request Intake and Output - 24 Hour Total 08/11/24 05:49 thru 08/11/24 06:06 Weight 217.724 kg Falls Risk Assessment History of Falls No History 08/11/24 06:10 Contributing Factors Unstable,Impairments 08/11/24 06:10 Ambulatory Aids Independent 08/11/24 06:10 Tubes/Lines With any additional score 08/11/24 06:10 Gait Evaluation W/any additional score 08/11/24 06:10 Cognition No cognitive impairment 08/11/24 06:10 Fall Total Score 46 08/11/24 06:10 Level of Risk Moderate Risk 08/11/24 06:10 Problems (Last Reviewed 08/11/24 @ 05:57 by Harshal Sahu MD) On deep vein thrombosis (DVT) prophylaxis (Acute) Acute exacerbation of CHF (congestive heart failure) (Acute) Obesity hypoventilation syndrome (Acute) Depression (Chronic) Gastroesophageal reflux disease (Chronic) Sleep apnea (Chronic) Smoker (Chronic) Narcolepsy (Chronic) v v v v v v v v v Sending and/or Receiving Nurses: Please use comment section below to note any information pertinent to the patient hand-off not included above. Information / Comments: report received all questions answered. Report received from: Report recieved at [id number] by Judith Orozco RN
[2024-08-11] MEDS: Enoxaparin 40 MG/0.4 ML SYR SC (13:19)
[2024-08-11] MEDS: Normal Saline Flush 10 ML SYR IVP ×3 (13:19→19:39)
--- NOTE | 2024-08-11 15:10 | RESPIRATORY ---
Patient has home NIV from [facility]. Spoke with [facility] [employer] sales representative Fabien to request settings. AVAPS-AE, VT-500, PS-MIN/MAX-15-30, EPAP 10-20.
[2024-08-11] MEDS: Methylphenidate 10 MG TAB 20 MG PO (15:20)
[2024-08-11] MEDS: oxyCODONE 5 MG TAB 7.5 MG PO ×2 (17:27→19:33)
[2024-08-11] MEDS: Acetaminophen 325 MG TAB PO ×2 (17:28→19:38)
[2024-08-11 18:32] LABS: Procalcitonin < 0.10 ng/mL
[2024-08-11] MEDS: traZODone 100 MG TAB 300 MG PO (19:38)
[2024-08-11] MEDS: busPIRone 15 MG TAB PO (19:38)
[2024-08-11] MEDS: Mirtazapine 15 MG TAB 60 MG PO (19:38)
[2024-08-12] VITALS (9 sets, daily range): BP systolic 114–150; BP diastolic 57–89; PULSE 67–84; RESP 16–24; TEMP 35.9–36.6; O2SAT 92–96
[2024-08-12] MEDS: Enoxaparin 40 MG/0.4 ML SYR SC ×2 (00:01→12:13)
[2024-08-12] MEDS: Normal Saline Flush 10 ML SYR IVP ×4 (00:01→22:39)
[2024-08-12] MEDS: Methylphenidate 10 MG TAB 20 MG PO ×3 (05:35→16:32)
[2024-08-12 06:39] LABS: Abs Immature Grans 0.21 10^3/uL (0.0-0.06); Absolute Basophil Count 0.06 10^3/uL (0.0-0.2); Absolute Eosinophil Count 0.12 10^3/uL (0.0-0.7); Absolute Lymphocyte Count 1.33 10^3/uL (1.2-3.4); Absolute Monocyte Count 0.66 10^3/uL (0.1-0.8); Absolute Neutrophil Count 5.88 10^3/uL (1.2-6.7); Basophils % 0.7 %; Eosinophils % 1.5 %; HCT 41.2 % (40.0-50.0); Immature Grans % 2.5 %; Lymphocytes % 16.1 %; MCH 26.1 pg (27.0-33.0); MCHC 31.6 % (32.0-36.0); MCV 83 fL (80-95); MPV 9.7 fL (8.0-11.0); Neutrophils % 71.2 %; RBC 4.99 10^6/uL (4.36-5.78); RDW 16.3 % (11.8-14.1); RDW-SD 48.6 fL; WBC 8.26 10^3/uL (4.4-10.8)
[2024-08-12 06:53] LABS: Anion Gap 12.2 mmol/L (3-11); BUN 13 mg/dL (7-18); CO2 28.8 mmol/L (21.0-32.0); CREATININE 1.3 mg/dL (0.70-1.30); Calcium 8.9 mg/dL (8.5-10.1); Chloride 99 mmol/L (98-107); Estimated GFR 65.28 (mL/min/1.73m2); Glucose 143 mg/dL (74-106); Platelet Count 877 10^3/uL (130-400); Potassium 3.7 mmol/L (3.5-5.1); Sodium 140 mmol/L (136-145)
[2024-08-12] MEDS: Celecoxib 200 MG CAP 400 MG PO (07:54)
[2024-08-12] MEDS: busPIRone 15 MG TAB PO ×2 (07:54→22:37)
[2024-08-12] MEDS: Furosemide 40 MG/4 ML VIAL IVP ×2 (07:54→16:32)
[2024-08-12] MEDS: oxyCODONE 5 MG TAB 7.5 MG PO ×3 (07:54→22:38)
[2024-08-12] MEDS: Lisinopril 10 MG TAB PO (07:55)
[2024-08-12] MEDS: Atorvastatin 20 MG TAB PO (07:55)
[2024-08-12] MEDS: DULoxetine 30 MG CAP 60 MG PO (07:55)
[2024-08-12] MEDS: Acetaminophen 325 MG TAB PO ×3 (07:55→22:37)
[2024-08-12] MEDS: Lansoprazole 30 MG CAPCR PO (07:55)
[2024-08-12] MEDS: amLODIPine 10 MG TAB PO (07:55)
--- NOTE | 2024-08-12 08:54 | PDOC.CMIN ---
Date of service: 08/12/24 Time of Service: 08:54 Care Management Initial Assmt Initial Assessment Reason for Hospitalization: CHF and COPD Functional Status/Living Situation Patient Presentation: Darvin was lying in bed on his side, almost in a prone position, when CM met with him. The position looked uncomfortable but, when asked, Darvin stated that it is more comfortable than being on his back. Darvin was admitted with CHF and COPD. He is not on home O2 and is requiring 2L/min of nasal oxygen to maintain saturation >90%. He is also tachypneic with a respiratory rate still in the 20s. Darvin is currently staying at the [facility] with a hotel voucher from [employer]. The voucher program ends for the season on 08/22/24. Darvin informed CM that if he loses his housing he will be able to stay with his son Tony. He has a total of 6 children who all live in [place]. Darvin states they are a relatively close family and keep in touch. Darvin is on disability and receives SSDI payments. He does not currently receive any community services, however indicated that he would like to get Meals on Wheels. After conversation, Darvin agreed to have CM send a referral to [facility] for Options Counseling, Meals on Wheels and Community Case Management. He does not use any assistive devices for ambulation and is independnet with ADLs. Town of Residence: [facility] Resides with: Other ([facility]) Significant Other/Family: Local Employment Status: Disabled Instrumental Activities of Daily Living (ADLs): Independent Medications Medication Management: No Issues/Barriers identified Physical Functioning/Mobility Assistive Device: none Advance Directives Advance Directives: Do you have an Advance Directive: N 01/13/22, 11:26 AD On File at [facility]: N 06/22/12, 16:01 Date Asked 08/11/24 08/11/24, 07:30 AD Date Reviewed COLST On File at [facility] COLST Date Scanned Code Status Resuscitation Status Full Code Portal Pt does not currently have a portal and education provided: Yes Insurance Coverage/Financial Issues Insurance: Medicare Medicaid Care Team Visit Care Team Role Provider Type Consuelo Tracy NP NURSE PRACTITIONER ZANE Ulloa Primary Care Provider PHYSICIANS ASSISTANT Payam Lucio DO Emergency Provider [facility] STAFF PHYSICIAN Harshal Lackey MD Admit Provider [facility] STAFF PHYSICIAN Attending Provider Discharge Potential Discharge Needs: PCP F/U Appt Anticipated Barriers to Discharge: None Identified Patient/Family Education Needs: Review discharge instructions, discuss Ask Me Three Transportation: Private vehicle Plan: Anticipate Darvin will be discharged home, possibly with new home health services, when medically cleared. He will follow up with his community providers and plan of care and transport via private vehicle. CM will follow and continue to support discharge planning. Social Determinants of Health Screening Social Determinants of health last assessed in clinic: 08/11/24 Will the Patient Participate in the Screening?: Declined to provide Do you worry about having a steady place to live?: no Problems where you live: no known problems In the past 12 months, have you had to go without electric, gas, oil or water in your home?: no Has lack of transportation kept you from medical appointments or from doing things needed for daily living?: yes Has anyone in your life made you feel unsafe or unsupported?: no How hard is it for you to pay for the very basics like food, housing, medical care, and heating? Would you say it is:: Not hard at all Do you want help finding or keeping work or a job?: I do not need or want help If for any reason you need help with day-to-day activities such as bathing, preparing meals, shopping, managing finances, etc., do you get the help you need?: I don?t need any help How often do you feel lonely or isolated from those around you?: Never Do you speak a language other than Citizen [place] at home?: No Does the patient want assistance with any of the above?: No Comments: already done in ER Health Related Social Needs Health related social needs: transportation insecurity (Z59.82) Health related social needs details: [facility] Active Problems (Updated 08/11/24 @ 17:58 by Amada Adamson APRN) Acute hypoxic respiratory failure (Acute) Infiltrate of left lung present on chest x-ray (Acute) On deep vein thrombosis (DVT) prophylaxis (Acute) Acute exacerbation of CHF (congestive heart failure) (Acute) Hypoxemia (Acute) 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) Biventricular heart failure (Chronic) Elevated hemidiaphragm (Acute) Obesity hypoventilation syndrome (Acute) Acute on chronic respiratory acidosis (Acute) Migraine (Acute 05/09/13) Depression (Chronic) Gastroesophageal reflux disease (Chronic) Insomnia (Chronic) Sleep apnea (Chronic) Smoker (Chronic) Blind left eye (Chronic) Narcolepsy (Chronic) Medical History Restrictive lung disease Hypertension Morbid obesity COPD (chronic obstructive pulmonary disease) Bipolar disorder Hypogonadism in male Diabetes Neuropathy Extrapyramidal movement disorder CAD (coronary artery disease) HLD (hyperlipidemia) CHF (congestive heart failure) Chronic low back pain Organic impotence Hyperprolactinemia Social History Smoking/Tobacco Use Status: Current every day Tobacco Type: e-cigarettes Smoking risk assessment performed?: Yes Alcohol Intake: current Alcohol Intake frequency: holidays/special occasions only Alcohol type: hard liquor Drug use: Never Details: About once a month, used last a couple weeks ago Housing: other Do you feel safe at home: Yes Do you feel safe in your relationship?: Yes Additional Social history: lives at [facility]
--- NOTE | 2024-08-12 09:53 | DI.VRAD_ITS ---
PROCEDURE INFORMATION: Exam: XR Chest Exam date and time: 08/11/2024 7:14 AM Age: 53 years old Clinical indication: Shortness of breath TECHNIQUE: Imaging protocol: Radiologic exam of the chest. Views: 1 view. COMPARISON: No relevant prior studies are available for comparison. FINDINGS: Limitations: Left lung base incompletely imaged. Lungs: Pulmonary vascular congestion. Left retrocardiac opacity. Pleural spaces: Right pleural effusion. Heart/Mediastinum: Enlarged cardiac silhouette. Bones/joints: No acute abnormality. IMPRESSION: 1. Enlarged cardiac silhouette with pulmonary vascular congestion. Correlate clinically for heart failure. 2. Right pleural effusion. 3. Left retrocardiac opacity, incompletely imaged. Consider effusion, atelectasis, pneumonia. Follow-up if clinically warranted. Dictated and Authenticated by: Nichelle Simpson MD. Orderin Luis Alberto Caputo MD
--- NOTE | 2024-08-12 16:20 | PGE_ITS ---
Date of Service Date of service: 08/12/24 Time of Service: 16:20 Assessment and Plan Assessment and plan (1) Acute exacerbation of CHF (congestive heart failure): Status: Acute Assessment and plan: Last echo with LVEF 40-45% Echocardiogram Continue IV lasix 40 BID Monitor intake and output closely, daily weights Labs in AM (2) Acute hypoxic respiratory failure: Status: Acute Assessment and plan: non-oxygen dependent at home Continue weaning oxygen as able Secondary to CHF exacerbation (3) Infiltrate of left lung present on chest x-ray: Status: Acute Assessment and plan: As per CXR- not able to fit in CT Procalcitonin negative, no fever, no elevated white count No indication for antibiotics at this time (4) Hypertension: Assessment and plan: Cont amlodipine and adjust PRN Monitor (5) Depression: Status: Chronic Assessment and plan: Continue home meds (6) Sleep apnea: Status: Chronic Assessment and plan: BiPAP while asleep. Considerable weight loss would be desirable. 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 (8) COPD (chronic obstructive pulmonary disease): Assessment and plan: Cont home meds PRN nebs (9) Narcolepsy: Status: Chronic Assessment and plan: Continue home methylphenidate 20mg TID (10) Gastroesophageal reflux disease: Status: Chronic Assessment and plan: PPI (11) Obesity hypoventilation syndrome: Status: Acute Assessment and plan: BiPAP while asleep Seen by pulmonology in 2020- read note weigt management would be indicated as per point 11. (12) Morbid obesity: Assessment and plan: GLP- inhibitor introduced as an option to patient- discussion to continue with PCP (13) Restrictive lung disease: Assessment and plan: As per pulmonology BIPAP as per home setting (14) On deep vein thrombosis (DVT) prophylaxis: Status: Acute Assessment and plan: ON LMWH Discussed with Dr. Lackey Subjective Subjective Interval history since last seen: Reports improvement in his respiratory status since admission. Weaning oxygen down to half a liter nasal cannula. States he is eating and drinking and bowels and bladder function with no difficulty Exam Narrative Exam Narrative: Super morbid obese male chronically ill-appearing laying in prone position on the bed respirations even and unlabored breath sounds are clear throughout no wheezing or coarse breath sounds noted cardiovascular regular rate and rhythm head is atraumatic neurologic he is awake alert oriented no focal deficits responding appropriately psychiatric appropriate mood and affect Objective Last Vital Signs Temp 36.1 C L 08/12/24 15:53 Pulse 76 08/12/24 15:53 Resp 16 08/12/24 15:53 BP 128/75 08/12/24 15:53 Pulse Ox 96 08/12/24 15:53 Laboratory Results - last 24 hr 08/11/24 08/12/24 06:26 06:23 WBC 8.26 RBC 4.99 Hgb 13.0 L Hct 41.2 MCV 83 MCH 26.1 L MCHC 31.6 L RDW 16.3 H Plt Count 877 H* MPV 9.7 Immature Gran % 2.5 Neutrophils % 71.2 Lymphocytes % 16.1 Monocytes % 8.0 Eosinophils % 1.5 Basophils % 0.7 Nucleated RBC % 0.0 Absolute Neutrophils 5.88 Absolute Lymphocytes 1.33 Absolute Monocytes 0.66 Absolute Eosinophils 0.12 Absolute Basophils 0.06 Sodium 140 Potassium 3.7 Chloride 99 Carbon Dioxide 28.8 Anion Gap 12.2 H BUN 13 Creatinine 1.3 Est GFR (CKD-EPI 2020) 65.28 Glucose 143 H Calcium 8.9 Procalcitonin < 0.10 Time Spent with Patient Time Spent with Patient: 35-49 minutes Time was spent: preparing to see the patient(eg.review tests), obtaining and/or reviewing separately otained hiistory, ordering medications,tests, procedures, indepentently interpreting results and counseling the patient
[2024-08-12] MEDS: traZODone 100 MG TAB 300 MG PO (22:37)
[2024-08-12] MEDS: Mirtazapine 15 MG TAB 60 MG PO (22:38)
[2024-08-13] MEDS: Enoxaparin 40 MG/0.4 ML SYR SC (01:04)
[2024-08-13 04:08] VITALS: BP 122/70; PULSE 82; RESP 20; TEMP 36.5; O2SAT 88
[2024-08-13] MEDS: oxyCODONE 5 MG TAB 7.5 MG PO ×2 (05:22→08:59)
[2024-08-13] MEDS: Methylphenidate 10 MG TAB 20 MG PO ×2 (05:23→12:12)
[2024-08-13] MEDS: Acetaminophen 325 MG TAB PO ×2 (05:23→09:00)
[2024-08-13 07:59] VITALS: BP 142/91; PULSE 75; RESP 16; TEMP 36.7; O2SAT 93
[2024-08-13] MEDS: Celecoxib 200 MG CAP 400 MG PO (09:00)
[2024-08-13] MEDS: amLODIPine 10 MG TAB PO (09:00)
[2024-08-13] MEDS: Lansoprazole 30 MG CAPCR PO (09:01)
[2024-08-13] MEDS: DULoxetine 30 MG CAP 60 MG PO (09:01)
[2024-08-13] MEDS: busPIRone 15 MG TAB PO (09:01)
[2024-08-13] MEDS: Lisinopril 10 MG TAB PO (09:01)
[2024-08-13] MEDS: Normal Saline Flush 10 ML SYR IVP (09:01)
[2024-08-13] MEDS: Atorvastatin 20 MG TAB PO (09:01)
[2024-08-13] MEDS: Nystatin POWDER 15 GM JAR TP (09:14)
[2024-08-13] MEDS: Furosemide 40 MG/4 ML VIAL IVP (10:09)
--- NOTE | 2024-08-13 12:02 | DSE_ITS ---
Date of service: 08/13/24 Time of Service: 12:02 DS: Diagnosis Discharge Diagnosis (1) Acute exacerbation of CHF (congestive heart failure): Status: Acute (2) Acute hypoxic respiratory failure: Status: Acute (3) Infiltrate of left lung present on chest x-ray: Status: Acute (4) Hypertension: (5) Depression: Status: Chronic (6) Sleep apnea: Status: Chronic (7) Smoker: Status: Chronic (8) COPD (chronic obstructive pulmonary disease): (9) Narcolepsy: Status: Chronic (10) Gastroesophageal reflux disease: Status: Chronic (11) Obesity hypoventilation syndrome: Status: Acute (12) Morbid obesity: (13) Restrictive lung disease: Discharge Plan Disposition Patient Disposition: Home Condition: Stable Discharge Details Reason For Visit: CHF exacerbation Admit Date/Time: 08/11/24 10:58 Admit Provider: Harshal Lackey Attending Provider: Harshal Lackey Primary Care Provider: Татьяна Koehler Hospital Course Hospital Course: This is a 57-year-old male patient past medical history significant for obesity induced hypoventilation, restrictive lung disease, elevated hemidiaphragm, heart failure who presented to the emergency department with increased shortness of b reath has been worsening over several days now with increased shortness of breath at rest. He denied any chest pain. Workup was most consistent with acute hypoxic respiratory failure secondary to CHF exacerbation. He was admitted to the medical surgical unit on IV diuresis. He slowly responded to treatment. Hemodynamically he remained stable he was eating and drinking bowels and bladder functioning echocardiogram showed a left ventricle which appeared normal in size wall thickness and overall systolic function. Right ventricle appeared normal in size. Right atrium mildly dilated right atrium not borderline dilated aortic root. Study technically limited due to body habitus. No significant valvular disease identified. He has been weaned off oxygen has remained hemodynamically stable and is feeling he is ready for discharge to home. He was advised to take his furosemide daily instead of as needed and to discuss further dosing with his primary care provider at his outpatient subha ointment which he states is this August 19. He should return here sooner for new or worsening symptoms discharge discussed with DR Alonso Home Meds and New Rx's Prescriptions: Continued hydrocodone-acetaminophen 10-325 mg tablet 1 tab PO Q6H PRN cabergoline 0.5 mg tablet See Rx Instructions PO ONCE Patient Comments: one tab twice weekly PO ONCE; Rx Instructions: one tab PO twice weekly; atorvastatin [Lipitor] 20 mg tablet 20 mg PO DAILY Vraylar 6 mg capsule 6 mg PO DAILY methocarbamol 500 mg tablet 500 mg PO BID PRN buspirone 15 mg tablet 15 mg PO BID duloxetine [Cymbalta] 60 mg capsule,delayed release(DR/EC) 60 mg PO DAILY furosemide [Lasix] 20 mg tablet 40 mg PO DAILY PRN Patient Comments: 12/27/14 not taking regularly, takes PRN. jw celecoxib 400 mg capsule 400 mg PO DAILY naloxone [Narcan] 4 mg/actuation Oakley,Non-Aerosol 4 mg INTRANASAL Q2-3M PRN lisinopril 10 mg tablet 10 mg PO DAILY mirtazapine 45 mg tablet 45 mg PO QHS Rx Instructions: take w/ 15mg for total 60mg qhs mirtazapine 15 mg tablet 15 mg PO QHS Rx Instructions: taking qhs w/ 45mg tab for 60mg total lansoprazole 30 mg capsule,delayed release(DR/EC) 30 mg PO AC Patient Comments: TAKE ONE CAPSULE BY MOUTH EVERY DAY BEFORE A MEAL FOR GERD trazodone 100 mg tablet 300 mg PO QHS Patient Comments: TAKE THREE TABLETS BY MOUTH EVERY EVENING AT BEDTIME oxycodone-acetaminophen 7.5-325 mg tablet 1 tab PO QID PRN Patient Comments: TAKE ONE TABLET BY MOUTH FOUR TIMES A DAY NEEDED FOR PAIN rosuvastatin 5 mg tablet 5 mg PO DAILY Patient Comments: TAKE ONE TABLET BY MOUTH EVERY DAY DIRECTED (DME) syringe with needle [BD Luer-Lana Syringe] 3 mL 23 x 1 syringe MISCELLANEOUS Patient Comments: USE ONCE WEEKLY FOR TESTOSTERONE INJECTION testosterone cypionate 200 mg/mL oil 100 mg IM .weekly Patient Comments: INJECT 0.5ML INTO THE MUSCLE ONCE WEEKLY Rexulti 3 mg tablet 3 mg PO QHS Patient Comments: TAKE ONE TABLET BY MOUTH AT BEDTIME amlodipine 10 mg tablet 10 mg PO DAILY methylphenidate HCl 20 mg tablet 20 mg PO TID Patient Comments: TAKE 1 TABLET BY MOUTH THREE TIMES DAILY - takes @ 0600,1200,1600 loratadine [Claritin] 10 mg Tablet 10 mg PO DAILY levalbuterol tartrate [Xopenex HFA] 45 mcg/actuation HFA aerosol inhaler 2 puff INHALATION Q6H PRN PRN Patient Comments: INHALE TWO PUFFS BY MOUTH EVERY 6 HOURS NEEDED Changed furosemide [Lasix] 40 mg tablet 40 mg PO DAILY Qty: 0 0RF No Action sulfamethoxazole-trimethoprim [Bactrim DS] 800-160 mg tablet 1 tab PO BID aspirin 81 mg Tablet,Delayed Release (Dr/Ec) 81 mg PO DAILY Discharge Instructions Instructions: Heart failure Additional Instructions: Take your Lasix daily. Weigh yourself 3 times weekly and report a 5 pound or more weight gain to your primary care provider for medication adjustment Stand Alone Forms: Nursing Discharge Form Referrals: Татьяна Koehler PA [Primary Care Provider, Medicine] Referral Note: I called your pcp office and left them a voicemail asking them to call you, to schedule a follow up appointment in 1-2 weeks Activity:: Activity as Tolerated Equipment/Supplies:: No Equipment Needed Diet:: Low Sodium Discharge Orders Discharge Orders: Discharge Order (Routine); Ordered 08/13/24 Ordered By: Consuelo Tracy Discharge Data Discharge Date/Time-TO BE ENTERED AT DEPARTURE: 08/13/24 12:49 DS: Summary Time Spent with Patient providing and/or coordinating discharge services: Greater than 30 minutes Status at Discharge Functional status at discharge: independent ambulation Overall status at discharge: patient is progressing back to baseline Mental Status: mental status grossly normal Speech and Movement: speech and movement normal Mood: congruent mood Affect: normal affect Quality:SDOH Health Related Social Needs: Health related social needs transpo insecurity Health related social needs details Pt reports he has some issues getting to and from [facility] Health related social needs details: Pt reports he has some issues getting to and from appts Exam Narrative Exam Narrative: Super morbid obese male chronically ill-appearing in no acute distress head is atraumatic left eye closed right eye normal appearance nonicteric noninjected EOMs intact respirations even and unlabored breath sounds are clear throughout no wheezing or coarse breath sounds noted cardiovascular regular rate and rhythm head is atraumatic neurologic he is awake alert oriented no focal deficits responding appropriately psychiatric appropriate mood and affect Psych Mental Status: mental status grossly normal Speech and Movement: speech and movement normal Mood: congruent mood Affect: normal affect DS: Data Vitals/I&O Vitals and I&O: Vital Signs Temperature 36.7 C 08/13/24 07:59 Temperature Source Skin 08/13/24 07:59 Pulse 75 08/13/24 07:59 Pulse Rhythm Regular 08/11/24 13:02 Pulse 73 08/11/24 08:00 Respiratory Rate 16 08/13/24 07:59 Respiratory Effort Short of Breath 08/11/24 13:02 Respiratory Depth Normal 08/11/24 13:02 Respiratory Pattern Normal 08/11/24 13:02 Blood Pressure 142/91 H 08/13/24 07:59 Blood Pressure Mean 108 08/13/24 07:59 Blood Pressure Position Sitting 08/11/24 06:10 Pulse Oximetry 93 08/13/24 07:59 Respiratory End-tidal CO2 33 08/11/24 09:50 Oxygen Delivery Method Nasal Cannula 08/13/24 07:59 Oxygen Flow Rate 0.5 08/13/24 07:59 Fraction of Inspired Oxygen (FIO2) 24 08/11/24 15:40 Pain Level 4 08/13/24 10:57 Comment patient refused vitals 08/12/24 04:33 Intake & Output 08/12/24 08/13/24 08/13/24 23:59 11:59 23:59 Intake Total 10 240 / 240 Output Total 2900 / 4700 1150 / 1150 Balance -2890 / -3930 -910 / -910 Weight 219.8 kg Intake: IV Oral 240 / 240 Output: Urine 2900 / 4700 1150 / 1150 Other: Urine Color Straw Yellow Urine Appearance Clear Clear Urine Odor Normal Normal PFSH All Active Problems (Updated 08/11/24 @ 17:58 by Amada Adamson APRN) Acute hypoxic respiratory failure (Acute) Infiltrate of left lung present on chest x-ray (Acute) On deep vein thrombosis (DVT) prophylaxis (Acute) Acute exacerbation of CHF (congestive heart failure) (Acute) Hypoxemia (Acute) 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) Biventricular heart failure (Chronic) Elevated hemidiaphragm (Acute) Obesity hypoventilation syndrome (Acute) Acute on chronic respiratory acidosis (Acute) Migraine (Acute 05/09/13) Depression (Chronic) Gastroesophageal reflux disease (Chronic) Insomnia (Chronic) Sleep apnea (Chronic) Smoker (Chronic) Blind left eye (Chronic) Narcolepsy (Chronic) Medical History Restrictive lung disease Hypertension Morbid obesity COPD (chronic obstructive pulmonary disease) Bipolar disorder Hypogonadism in male Diabetes Neuropathy Extrapyramidal movement disorder CAD (coronary artery disease) HLD (hyperlipidemia) CHF (congestive heart failure) Chronic low back pain Organic impotence Hyperprolactinemia Social History Smoking/Tobacco Use Status: Current every day Tobacco Type: e-cigarettes Smoking risk assessment performed?: Yes Alcohol Intake: current Alcohol Intake frequency: holidays/special occasions only Alcohol type: hard liquor Drug use: Never Details: About once a month, used last a couple weeks ago Housing: other Do you feel safe at home: Yes Do you feel safe in your relationship?: Yes Additional Social history: lives at [facility] Time Spent with Patient Time Spent with Patient: 70-84 minutes4 Time was spent: preparing to see the patient(eg.review tests), obtaining and/or reviewing separately otained hiistory, ordering medications,tests, procedures, indepentently interpreting results and counseling the patient
--- NOTE | 2024-08-13 13:18 | PDOC.CMDIS ---
Date of service: 08/13/24 Time of Service: 13:18 LACE Index Scoring Tool Questions: Length of Stay (in days): 2 Was the patient admitted via the E.D.?: Yes Comorbidities: Diabetes w/o Complication, Congestive Heart Failure and Chronic Pulmonary Disease E.D. Visits: 1 Answers: Total Score: 11 Risk of Readmission: High Risk Care Management Discharge Plan Reason for Hospitalization: CHF Discharge Plan: Darvin will be discharged home with no new services. He will follow up with his community providers and plan of care and transport via private vehicle. Patient/Family Education Needs: Review discharge instructions, discuss Ask Me Three SDOH Health Related Social Needs: Health related social needs transpo insecurity Health related social needs details Pt reports he has some issues getting to and from appts Health related social needs details: Pt reports he has some issues getting to and from appts
== END 2024-08-13 12:49 | disposition home or self-care (01) | DRG 291 ==
LOC: ER 09:01 → MS 11:56
PROVIDERS: Emergency Medicine; Nurse Practitioner Acute Care; Admitting Provider Hospitalist; Emergency Provider Student in an Organized Health Care Education/Training Program; PCP Physician Assistant Medical; Responsible Provider Nurse Practitioner Acute Care; Visit Provider Hospitalist
DX: J96.01 Acute respiratory failure with hypoxia (principal); E66.2 Morbid (severe) obesity with alveolar hypoventilation; Z68.45 Body mass index [BMI] 70 or greater, adult; J44.9 Chronic obstructive pulmonary disease, unspecified; I25.10 Atherosclerotic heart disease of native coronary artery without angina pectoris; E11.40 Type 2 diabetes mellitus with diabetic neuropathy, unspecified; G89.29 Other chronic pain; M54.50 Low back pain, unspecified; E22.1 Hyperprolactinemia; I11.0 Hypertensive heart disease with heart failure; I31.8 Other specified diseases of pericardium; I50.82 Biventricular heart failure; E29.1 Testicular hypofunction; G25.89 Other specified extrapyramidal and movement disorders; F17.290 Nicotine dependence, other tobacco product, uncomplicated; Z59.82 Transportation insecurity; G47.419 Narcolepsy without cataplexy; K21.9 Gastro-esophageal reflux disease without esophagitis; J98.4 Other disorders of lung; F32.A Depression, unspecified
CPT/HCPCS: 00123; 36415; 80048; 80053; 82805; 84145; 87637; 93005; 93306; 96374; 99291; J1650; 71045; 81003; 83735; 83880; 84484; 85025; 85379; 93010; 94660; 99223; 99233; 99239; J1938

== ENCOUNTER 2024-11-11 14:35 | Outpatient (REF) | payer MEDICARE, MEDICAID, SELFPAY ==
[2024-11-11 16:20] LABS: Abs Immature Grans 0.22 10^3/uL (0.0-0.06); HCT 41.4 % (40.0-50.0); HGB 13.1 g/dL (13.5-17.5); Immature Grans % 2.7 %; MCH 26.6 pg (27.0-33.0); MCHC 31.6 % (32.0-36.0); MCV 84 fL (80-95); RBC 4.93 10^6/uL (4.36-5.78); RDW 18.2 % (11.8-14.1); RDW-SD 55.2 fL; WBC 8.14 10^3/uL (4.4-10.8)
[2024-11-11 16:32] LABS: ALT 77 U/L (16-63); AST 37 U/L (15-37); Albumin 3.8 g/dL (3.4-5.0); Alkaline Phosphatase 104 U/L (46-116); Anion Gap 10.8 mmol/L (3-11); BUN 17 mg/dL (7-18); Bilirubin, Total 0.6 mg/dL (0.2-1.0); CO2 24.2 mmol/L (21.0-32.0); Calcium 9.5 mg/dL (8.5-10.1); Chloride 102 mmol/L (98-107); Estimated GFR 89.44 (mL/min/1.73m2); Glucose 119 mg/dL (74-106); Potassium 4.9 mmol/L (3.5-5.1); Sodium 137 mmol/L (136-145); Total Protein 7.8 g/dL (6.4-8.2)
[2024-11-11 18:15] LABS: MPV 10.4 fL (8.0-11.0); Platelet Count 839 10^3/uL (130-400); RBC Morphology Normal
== END 2024-11-11 14:36 | disposition home or self-care (01) ==
LOC: NCHCN 14:35
PROVIDERS: PCP Physician Assistant Medical; Visit Provider Family Medicine
DX: D69.6 Thrombocytopenia, unspecified (principal)
CPT/HCPCS: 80053; 85025

== ENCOUNTER 2024-12-09 13:33 | Emergency (ER) | payer MEDICARE, MEDICAID, SELFPAY ==
[2024-12-09] VITALS (13 sets, daily range): BP systolic 148–171; BP diastolic 81–91; PULSE 70–79; RESP 12–31; TEMP 36.6; O2SAT 91–99
--- NOTE | 2024-12-09 13:30 | RT.EKG_ITS ---
APPROVED REPORT Exam: Resting ECG Reason for Exam: sob Patient Location: E HR:76 bpm ECG Measurements Heart Rate 76 AXIS IN 170 P 50 QRSd 105 QRS -12 QT 410 T 41 QTc 462 Conclusion Sinus rhythm, rate 76 No interval abnormalities No STEMI Low voltage, unchanged from priors
--- NOTE | 2024-12-09 14:08 | W.ED.GENAD ---
Discharge Plan Disposition Patient Disposition: Home Condition: Stable Discharge Details Clinical Impression: Shortness of breath Primary Care Provider: Татьяна Koehler ED Provider: Dennis Cadena [place] Meds and New Rx's Prescriptions: New prednisone 20 mg tablet 60 mg PO DAILY 4 Days Qty: 12 0RF Continued hydrocodone-acetaminophen 10-325 mg tablet 1 tab PO Q6H PRN cabergoline 0.5 mg tablet See Rx Instructions PO ONCE Patient Comments: one tab twice weekly PO ONCE; Rx Instructions: one tab PO twice weekly; atorvastatin [Lipitor] 20 mg tablet 20 mg PO DAILY Vraylar 6 mg capsule 6 mg PO DAILY methocarbamol 500 mg tablet 500 mg PO BID PRN buspirone 15 mg tablet 15 mg PO BID duloxetine [Cymbalta] 60 mg capsule,delayed release(DR/EC) 60 mg PO DAILY celecoxib 400 mg capsule 400 mg PO DAILY naloxone [Narcan] 4 mg/actuation [place],Non-Aerosol 4 mg INTRANASAL Q2-3M PRN lisinopril 10 mg tablet 10 mg PO DAILY mirtazapine 45 mg tablet 45 mg PO QHS Rx Instructions: take w/ 15mg for total 60mg qhs mirtazapine 15 mg tablet 15 mg PO QHS Rx Instructions: taking qhs w/ 45mg tab for 60mg total lansoprazole 30 mg capsule,delayed release(DR/EC) 30 mg PO AC Patient Comments: TAKE ONE CAPSULE BY MOUTH EVERY DAY BEFORE A MEAL FOR GERD trazodone 100 mg tablet 300 mg PO QHS Patient Comments: TAKE THREE TABLETS BY MOUTH EVERY EVENING AT BEDTIME rosuvastatin 5 mg tablet 5 mg PO DAILY Patient Comments: TAKE ONE TABLET BY MOUTH EVERY DAY DIRECTED (DME) syringe with needle [BD Luer-Lana Syringe] 3 mL 23 x 1 syringe MISCELLANEOUS Patient Comments: USE ONCE WEEKLY FOR TESTOSTERONE INJECTION testosterone cypionate 200 mg/mL oil 100 mg IM .weekly Patient Comments: INJECT 0.5ML INTO THE MUSCLE ONCE WEEKLY Rexulti 3 mg tablet 3 mg PO QHS Patient Comments: TAKE ONE TABLET BY MOUTH AT BEDTIME amlodipine 10 mg tablet 10 mg PO DAILY furosemide [Lasix] 40 mg tablet 40 mg PO DAILY Qty: 0 0RF aspirin 81 mg Tablet,Delayed Release (Dr/Ec) 81 mg PO DAILY methylphenidate HCl 20 mg tablet 20 mg PO TID Patient Comments: TAKE 1 TABLET BY MOUTH THREE TIMES DAILY - takes @ 0600,1200,1600 loratadine [Claritin] 10 mg Tablet 10 mg PO DAILY levalbuterol tartrate [Xopenex HFA] 45 mcg/actuation HFA aerosol inhaler 2 puff INHALATION Q6H PRN PRN Patient Comments: INHALE TWO PUFFS BY MOUTH EVERY 6 HOURS NEEDED Discharge Instructions Additional Instructions: You were given a breathing treatment and steroids with improvement of your symptoms. Your blood work did not show any changes from your baseline, you continue to have elevated platelets. Follow-up with primary care provider especially if you are not improving within a week. If you feel more ill or have severe worsening shortness of breath return to emergency department for reevaluation. HPI General Date/Time Provider Initiated Documentation: 12/09/24 13:44. Limitations to Documentation: no limitations. Information obtained by: patient. History of Present Illness 54 year old M presents to the emergency department with the chief complaint of short of breath, described as moderate, Patient started experiencing this day(s) (3) and it has been constant. No relieving factors improve symptom(s), No exacerbating factors reported . Patient notes denies chest pain, fever/chills and nausea/vomiting. Patient did receive the following treatments prior to arrival, none Related Data Home Medications ?Medication ?Instructions ?Recorded ?Confirmed atorvastatin 20 mg tablet (Lipitor) 20 mg PO DAILY 08/18/18 12/09/24 cabergoline 0.5 mg tablet See Rx Instructions PO ONCE 08/18/18 12/09/24 hydrocodone 10 mg-acetaminophen 1 tab PO Q6H PRN 08/18/18 12/09/24 325 mg tablet aspirin 81 mg tablet,delayed 81 mg PO DAILY 10/08/18 12/09/24 release levalbuterol tartrate 45 2 puff inhalation Q6H PRN PRN 12/27/19 12/09/24 mcg/actuation aerosol inhaler (Xopenex HFA) loratadine 10 mg tablet (Claritin) 10 mg PO DAILY 12/27/19 08/11/24 methylphenidate HCl 20 mg tablet 20 mg PO TID 12/27/19 12/09/24 naloxone 4 mg/actuation nasal 4 mg intranasal Q2-3M PRN 12/03/20 12/09/24 spray (Narcan) buspirone 15 mg tablet 15 mg PO BID 09/18/21 12/09/24 cariprazine 6 mg capsule (Vraylar) 6 mg PO DAILY 09/18/21 12/09/24 duloxetine 60 mg capsule,delayed 60 mg PO DAILY 09/18/21 12/09/24 release (Cymbalta) methocarbamol 500 mg tablet 500 mg PO BID PRN 09/18/21 12/09/24 celecoxib 400 mg capsule 400 mg PO DAILY 12/12/21 12/09/24 amlodipine 10 mg tablet 10 mg PO DAILY 08/11/24 12/09/24 brexpiprazole 3 mg tablet (Rexulti) 3 mg PO QHS 08/11/24 12/09/24 lansoprazole 30 mg capsule,delayed 30 mg PO AC 08/11/24 12/09/24 release lisinopril 10 mg tablet 10 mg PO DAILY 08/11/24 08/11/24 mirtazapine 15 mg tablet 15 mg PO QHS 08/11/24 12/09/24 mirtazapine 45 mg tablet 45 mg PO QHS 08/11/24 12/09/24 rosuvastatin 5 mg tablet 5 mg PO DAILY 08/11/24 08/11/24 syringe with needle 3 mL 23 x 1 08/11/24 08/11/24 (BD Luer-Lana Syringe) testosterone cypionate 200 mg/mL 100 mg IM .weekly 08/11/24 12/09/24 intramuscular oil trazodone 100 mg tablet 300 mg PO QHS 08/11/24 12/09/24 furosemide 40 mg tablet (Lasix) 40 mg PO DAILY #0 tabs 08/13/24 12/09/24 prednisone 20 mg tablet 60 mg (3 x 20 mg) PO DAILY 4 days 12/09/24 #12 tabs Previous Rx's ?Medication ?Instructions ?Recorded furosemide 40 mg tablet (Lasix) 40 mg PO DAILY #0 tabs 08/13/24 prednisone 20 mg tablet 60 mg (3 x 20 mg) PO DAILY 4 days 12/09/24 #12 tabs Allergies Allergy/AdvReac Type Severity Reaction Status Date / Time ibuprofen AdvReac Intermediate GI Bleeding Unverified 12/09/24 13:45 General Stated Complaint: SOB KIMBERLEE: 2 Review of Systems All systems reviewed & are unremarkable except as noted in HPI and below Constitutional Constitutional: Denies chills, Denies fever(s) and Denies weakness Cardiovascular Cardiovascular: Denies chest pain and Reports dyspnea Respiratory Respiratory: Denies cough and Reports dyspnea Gastrointestinal Gastrointestinal: Denies abdominal pain, Denies nausea and Denies vomiting Neurologic Neurologic: Denies weakness Exam Const General: no acute distress Orientation: alert [facility] Head: normal to inspection Ears: external ears normal General nose exam: external nose normal Mouth: moist mucous membranes Eyes General: appearance normal, both eyes and all related structures Neck Neck: normal visual inspection Resp Effort & Inspection: normal respiratory effort and able to speak in complete sentences Auscultation: wheezes Cardio Rate: regular rate Skin General skin exam: no rashes or lesions noted Neuro General: patient alert and patient oriented x3 Extrem General: edema Psych Mental Status: mental status grossly normal Course Vital Signs Vital signs: Vital Signs Temperature 36.6 C 12/09/24 13:41 Pulse 78 12/09/24 13:41 Respiratory Rate 18 12/09/24 13:41 Blood Pressure 148/91 H 12/09/24 13:41 Pulse Oximetry 91 L 12/09/24 13:41 Temperature 36.6 C 12/09/24 13:41 Pulse 78 12/09/24 13:41 Respiratory Rate 18 12/09/24 13:41 Blood Pressure 148/91 H 12/09/24 13:41 Blood Pressure Position Sitting 12/09/24 13:41 Pulse Oximetry 91 L 12/09/24 13:41 Oxygen Delivery Method Room Air 12/09/24 13:41 Oxygen Flow Rate 0 12/09/24 13:41 Medical Decision Making 54-year-old male with a history of obesity, restrictive lung disease, CHF, who comes in with several days of worsening shortness of breath. Denies any chest pressure or chest pain. Denies any fevers or chills or cough. He says he been urinating normally. He is speaking full sentences but is slightly tachypneic. He has wheezing at the apices bilaterally and diminished lung sounds bilaterally at the bases. He does have pedal edema both lower extremities to the mid tibia. No calf tenderness. I suspect he could have a component of restrictive lung disease and also CHF exacerbation. Will check CBC CMP proBNP and troponins and also obtain a chest x-ray. Will treat his symptoms with Solu-Medrol and DuoNeb and also a dose of IV Lasix. Workup is relatively benign we will consider doing a CTA to evaluate for possible PE. Patient's labs show no significant changes from baseline, she has chronic thrombocytosis which she is already aware of and states he is can be seeing hematology for. He is feeling significantly better and his lung sounds are now improved and only has mild apical wheezing. He is ambulating with no visible signs of respiratory distress. I suspect primarily reactive airway disease. Will place him on prednisone for a few days and he will follow-up with his PCP, return precautions given. Differential Diagnosis Differential Diagnosis: chf, copd, pneumonia, anemia Medical Records Medical records reviewed: Yes I reviewed the patient's medical records. Lab Data Lab results reviewed: Yes I reviewed the patient's lab results. ECG Data Attestation: I personally reviewed and interpreted this ECG (s) as follows: Prior ECG tracings: available for review Interpretation: sinus rate of 76 no stemi Quality:SDOH Health Related Social Needs: Health related social needs transpo insecurity Health related social needs details [facility] Problems (Updated 12/09/24 @ 16:30 by Dennis Cadena MD) Shortness of breath (Acute) Acute hypoxic respiratory failure (Acute) Infiltrate of left lung present on chest x-ray (Acute) On deep vein thrombosis (DVT) prophylaxis (Acute) Acute exacerbation of CHF (congestive heart failure) (Acute) Hypoxemia (Acute) 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) Biventricular heart failure (Chronic) Elevated hemidiaphragm (Acute) Obesity hypoventilation syndrome (Acute) Acute on chronic respiratory acidosis (Acute) Migraine (Acute 05/09/13) Depression (Chronic) Gastroesophageal reflux disease (Chronic) Insomnia (Chronic) Sleep apnea (Chronic) Smoker (Chronic) Blind left eye (Chronic) Narcolepsy (Chronic) Medical History Restrictive lung disease Hypertension Morbid obesity COPD (chronic obstructive pulmonary disease) Bipolar disorder Hypogonadism in male Diabetes Neuropathy Extrapyramidal movement disorder CAD (coronary artery disease) HLD (hyperlipidemia) CHF (congestive heart failure) Chronic low back pain Organic impotence Hyperprolactinemia Social History Smoking/Tobacco Use Status: Current every day Tobacco Type: e-cigarettes Smoking risk assessment performed?: Yes Alcohol Intake: current Alcohol Intake frequency: holidays/special occasions only Alcohol type: hard liquor Drug use: Never Details: About once a month, used last a couple weeks ago Housing: other Do you feel safe at home: Yes Do you feel safe in your relationship?: Yes Additional Social history: lives at [facility]
[2024-12-09 14:33] LABS: BE (Venous) 0 mmol/L (-2-3); HCO3 (Venous) 26 mmol/L (23-28); O2 Sat (Venous) 84 %; TCO2 (Venous) 24 mmol/L (24-29); pCO2 (Venous) 45 mmHg (41-51); pO2 (Venous) 48 mmHg
[2024-12-09 14:39] LABS: Abs Immature Grans 0.15 10^3/uL (0.0-0.06); HCT 38.5 % (40.0-50.0); HGB 12.1 g/dL (13.5-17.5); Immature Grans % 2.2 %; MCH 26.7 pg (27.0-33.0); MCHC 31.4 % (32.0-36.0); MCV 85 fL (80-95); MPV 9.8 fL (8.0-11.0); RBC 4.54 10^6/uL (4.36-5.78); RDW 17.4 % (11.8-14.1); RDW-SD 53.9 fL; WBC 6.93 10^3/uL (4.4-10.8)
--- NOTE | 2024-12-09 14:40 | DI.RAD_ITS ---
Exam(s) XR CHEST 2V PA LATERAL EXAM: XR CHEST 2V PA LATERAL CLINICAL HISTORY: dyspnea TECHNIQUE: 2D digital imaging was performed. Two views. COMPARISON: CR XR PORTABLE CHEST AP from 12/03/2020 CR,XR XR PORTABLE CHEST AP from 08/11/2024 FINDINGS: Exam is extremely limited due to patient body habitus. The exam was performed with the patient in a stretcher. HEART: Normal size. Aorta: Not dilated. PULMONARY VASCULATURE: Normal. MEDIASTINUM: Unremarkable. LUNGS: Not well evaluated. Portions of the lungs are not visible. PLEURAL SPACE: No pleural effusion or pneumothorax. BONE:Unremarkable for age. SOFT TISSUES: Unremarkable. IMPRESSION: Extremely limited exam. Infiltrates not excluded. DATA REPOSITORY: RADIATION DOSE DELIVERED:
[2024-12-09 14:41] LABS: Platelet Count 806 10^3/uL (130-400)
[2024-12-09] MEDS: Albuterol/Ipratropium 3 ML UPD VIAL UPD (14:41)
[2024-12-09] MEDS: Furosemide 100 MG/10 ML VIAL 80 MG IVP (14:43)
[2024-12-09] MEDS: methylPREDNISolone SUCC 125 MG VIAL IVP (14:45)
[2024-12-09 15:00] LABS: ALT 82 U/L (16-63); AST 35 U/L (15-37); Albumin 3.3 g/dL (3.4-5.0); Alkaline Phosphatase 111 U/L (46-116); Anion Gap 9.1 mmol/L (3-11); BUN 11 mg/dL (7-18); Bilirubin, Total 0.3 mg/dL (0.2-1.0); CO2 26.9 mmol/L (21.0-32.0); Calcium 8.4 mg/dL (8.5-10.1); Chloride 107 mmol/L (98-107); Estimated GFR 88.88 (mL/min/1.73m2); Glucose 120 mg/dL (74-106); Magnesium 2.0 mg/dL (1.8-2.4); NT-proBNP 104 pg/mL (<300); Potassium 3.8 mmol/L (3.5-5.1); Sodium 143 mmol/L (136-145); Total Protein 7.3 g/dL (6.4-8.2); Troponin I 7 ng/L (<or=76)
[2024-12-09 16:11] LABS: Troponin I 8 ng/L (<or=76)
== END 2024-12-09 16:44 | disposition home or self-care (01) ==
PROVIDERS: Emergency Provider Emergency Medicine; PCP Physician Assistant Medical
DX: R06.02 Shortness of breath (principal); Z86.79 Personal history of other diseases of the circulatory system; R60.0 Localized edema; Z59.82 Transportation insecurity; Z72.0 Tobacco use
CPT/HCPCS: 99284 ×2; 96374; 96375; 94640; 36415; 80053; 82805; 87637; 93005; 71046; 83735; 83880; 84484; 85025; 93010; J1938; J2919; J7620